=== PATIENT | female | born 1940 | race Caucasian/White ===

== ENCOUNTER → 2016-10-25 | Outpatient (CLI) | payer BC ==
[~2016-10-25] MED LIST: ASPCH81X PO; CETI10TA10 PO; CIPR-255 PO; FLUO20CA37 PO; FRRS300 PO; IMD/2 PO; KCLP20 PO; LPT/40 PO; METO25TA56 PO; MULT-506 PO; NITR0.4S UT; ONDA4TAB65 PO; OXYC-57 PO; PANT40TA PO; RSPS5 PO; TEMA15CA4 PO; VNCS125 PO
--- NOTE | 2016-10-25 09:01 | DIAGNOSTIC IMAGING REPORT ---
GI SERIES W/AIR ROUTINE CLINICAL HISTORY: HIATAL HERNIA. Preop. COMPARISON STUDY: Abdomen and pelvis CT 01/24/2014. FLUOROSCOPY TIME: 1.9 minutes. 19 images submitted.. FINDINGS: The patient swallowed barium without difficulty. The esophagus is normal in course and caliber. Moderate to large hiatus hernia. No gastric ulcerations. There is a small diverticulum at the second portion of the duodenum. No gastroesophageal reflux. The duodenal bulb is normally distensible. 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 IMPRESSION: 1. Moderate to large hiatus hernia. 2. A small duodenal diverticulum. 3. Multiple jejunal diverticula. Electronically signed by: Blanco Pak M.D. 10/25/2016 8:59 AM Dictated Date/Time: 10/25/2016 8:57 AM
== END | disposition home or self-care (01) ==
LOC: C.RAD 08:10
PROVIDERS: ATTEND Surgery
DX: K44.9 Diaphragmatic hernia without obstruction or gangrene (principal); K57.10 Diverticulosis of small intestine without perforation or abscess without bleeding

== ENCOUNTER 2017-01-23 09:06 | Inpatient (IN) | payer BC, OTHER ==
[~2017-01-23] VITALS: Ht 154.9 cm; Wt 73.3 kg
[~2017-01-23 09:06] MED LIST changes: -CIPR-255 PO; -IMD/2 PO; -KCLP20 PO; -ONDA4TAB65 PO; -OXYC-57 PO; -RSPS5 PO; -VNCS125 PO
[2017-01-23] MEDS ORDERED: SODIUM CHLORIDE 0.9% 1000ML 1,000 ML IV STA (09:20)
[2017-01-23 09:46] LABS: BASO % 0.2 %; BASO ABS # 0.02 K/uL (0-0.2); COMPLETE YES; EOS % 1.1 %; HEMATOCRIT 39.1 % (37-47); IG% 0.3 %; LYMPH ABS # 1.23 K/uL (1.2-3.4); MEAN CELL VOLUME 89.5 fL (80-100); MEAN CORPUSCULAR HEMOGLOBIN 29.7 pg (25-34); MEAN CORPUSCULAR HGB CONC 33.2 g/dl (32-36); MEAN PLATELET VOLUME 8.7 fL (7.4-10.4); MONO % 10.4 %; PLATELET COUNT 703 K/uL (130-400); RED BLOOD COUNT 4.37 M/uL (4.2-5.4); WHITE BLOOD COUNT 10.29 K/uL (4.8-10.8)
[2017-01-23] MEDS ORDERED: ONDANSETRON INJ 2 MG/ML 2 ML VIAL IV STA (09:49)
[2017-01-23] MEDS: HYDROmorphone INJ 0.5 MG/0.5 ML SYR IV PRN ×2 (10:02→13:25)
[2017-01-23 10:04] LABS: BUN/CREATININE RATIO 18.7 (10-20); CALCIUM 8.6 mg/dl (8.5-10.1); CREATININE 0.67 mg/dl (0.60-1.20); POTASSIUM 3.4 mmol/L (3.5-5.1)
--- NOTE | 2017-01-23 10:11 | DIAGNOSTIC IMAGING REPORT ---
CHEST ONE VIEW PORTABLE CLINICAL HISTORY: Upper abdominal pain COMPARISON STUDY: 06/18/2016 FINDINGS: The heart is the upper limits of normal in size. There has been possible interval repair of a hiatal hernia. There are bibasilar opacities, possibly atelectatic. There is no free intraperitoneal air. There is a 3 cm opacity projected through the gastric air bubble. This is nonspecific. There is blunting of the lateral costophrenic angles IMPRESSION: 1. No evidence of free intraperitoneal air 2. Bibasilar opacities, possibly atelectatic although an infectious/inflammatory process could appear similar particularly at the left lung base 3. Nonspecific 3 cm opacity visualized through the gastric air bubble Electronically signed by: Tyler Adames M.D. 01/23/2017 10:10 AM Dictated Date/Time: 01/23/2017 10:05 AM
--- NOTE | 2017-01-23 10:53 | DIAGNOSTIC IMAGING REPORT ---
ABD/PELVIS NO IV OR ORAL CONT CLINICAL HISTORY: 76 years-old Female presenting with upper abd pain, recent hiatal hernia surgery. TECHNIQUE: Multidetector CT of the abdomen and pelvis was performed without the use of intravenous contrast. IV contrast: None. COMPARISON: CT from 2014. CT DOSE: The estimated cumulative dose is 529.46 mGy.cm. 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 Trace left pleural effusion. Mild multichamber enlargement of the heart. Coronary artery calcification. No pericardial effusion. Liver: Normal morphology. Normal liver density. Biliary: Mild extrahepatic biliary ductal prominence likely within the normal range for the patient's age. Diffuse mild gallbladder wall thickening measuring up to 4 mm. Trace pericholecystic fluid. No pericholecystic inflammatory change. Pancreas: Mild parenchymal atrophy. Spleen: Normal noncontrast appearance. Adrenal glands: Normal. Kidneys and ureters: Multiple parapelvic hypodensities likely parapelvic cysts. No hydronephrosis. No hydroureter. No nephrolithiasis. Gastrointestinal tract: Diverticulosis of the descending and sigmoid colon with suggestion of wall thickening likely indicating chronic diverticular disease. No pericolonic inflammatory change. Patent ileocolic anastomosis in the right lower quadrant. No bowel obstruction. Small hiatal hernia may be present. Apparent wall thickening of the pylorus, which is immediately adjacent to the gallbladder. This may be secondarily reactive. Peritoneal cavity: No free fluid or intraperitoneal gas. Bladder: Incompletely evaluated secondary to underdistention. Pelvic organs: Uterus and ovaries normal. Vasculature: Atherosclerosis of the normal caliber abdominal aorta. Lymph nodes: No enlarged lymph nodes in the abdomen or pelvis. Abdominal wall: Minimal infiltration of several sites in the anterior abdominal wall may relate to prior surgery. Small fat-containing umbilical hernia. Musculoskeletal: Degenerative changes of the spine. IMPRESSION: 1. Mild gallbladder wall thickening with trace pericholecystic fluid. Although pericholecystic inflammatory changes not present, this raises concern for cholecystitis. Further evaluation with ultrasound or hepatobiliary nuclear medicine scan as clinically warranted. 2. Bibasilar consolidation and volume loss, likely extensive atelectasis. 3. Diverticulosis. Electronically signed by: Rei Moreland M.D. 01/23/2017 10:52 AM Dictated Date/Time: 01/23/2017 10:40 AM
[2017-01-23] MEDS ORDERED: LEVAQUIN 750MG / 150ML D5W IV STA (11:18)
[2017-01-23 11:55] LABS: URINE APPEARANCE CLEAR (CLEAR); URINE COLOR DK YELLOW; URINE EPITHELIAL CELL AUTO >30 /lpf (0-5); URINE NITRITE NEG (NEG); URINE PH 5.5 (4.5-7.5); URINE SPECIFIC GRAVITY 1.038 (1.000-1.030); UROBILINOGEN NEG (NEG); ZZUR CULT IF INDIC CLEAN CATCH NO
[2017-01-23 11:58] LABS: MANUAL MICROSCOPIC REQUIRED? NO; REVIEW REQ? NO; URINE BILIRUBIN NEG (NEG)
--- NOTE | 2017-01-23 15:13 | DIAGNOSTIC IMAGING REPORT ---
Right upper quadrant ultrasound GALLBLADDER-ABD LIMITED CLINICAL HISTORY: abn GB on CT abnormal CT exam. Pain. TECHNIQUE: Ultrasound COMPARISON STUDY: CT study same date FINDINGS: Gallbladder slightly distended. Trace gallbladder sludge. No shadowing gallstones. No significant pericholecystic fluid. Minimal prominence extra hepatic common bile duct 7 mm. Fatty infiltration of the liver. Pancreas and right kidney are unremarkable. IMPRESSION: 1. Slight gallbladder distention with a trace amount of gallbladder sludge. 2. Minimal prominence of the common bile duct at 7 mm. 3. No significant pericholecystic fluid. 4. Fatty infiltration of liver Electronically signed by: Oscar Sharma M.D. 01/23/2017 3:11 PM Dictated Date/Time: 01/23/2017 3:09 PM
--- NOTE | 2017-01-23 16:09 | EMERGENCY ROOM VISIT NOTE ---
History Report prepared by Karina: Valdez Westbrook Under the Supervision of: Dr. Mahesh Wakefield M.D. First contact with patient: 09:19 Chief Complaint: ABDOMINAL PAIN Stated Complaint: ABD PAIN Nursing Triage Summary: pt presents via ALS Per ALS pt had hernia surgery 01/08 per patient this am she was sitting on the sofa and sat up to take her daily medications She reports an awful pain went through her bones and it just got worse and worse throughout the night her pain was horrible, she couldnt bend down, she couldnt catch her breath History of Present Illness The patient is a 76 year old female who presents to the Emergency Room with complaints of constant chest pain starting yesterday. She rates her pain as a 5/ 10 in severity currently and reports that it was 10/10 in severity. The patient states that she started to feel stiff last yesterday and went to sit up when she felt a piercing pain in her back, sides, and chest and states the pain is "wherever there are bones". She reports that the pain is only worsened with movement and relieved with rest. She also reports an intermittent cough that started last night. The patient states that she recently had a surgery 2 weeks ago for her hiatal hernia with Dr. Hanson at [facility]. She states that she was supposed have an appointment with Dr. Jurado later today. The patient states that she has abnormally low blood pressure and has normal bowel movements. The patient admits that she is allergic to hydrocodone, penicillin, sulfa drugs, macrolides, and lisinopril. The patient denies LOC, headache, fevers, chills, diaphoresis, visual changes, neck pain, breathing difficulties, nausea, vomiting , abdominal pain, melena, hematochezia, urinary symptoms, numbness, weakness, lymphadenopathy, rash, or other complaints. Source of History: patient Onset: yesterday Position: other (global) Symptom Intensity: 5/10 Timing: constant Modifying Factors (Worsening): movement Modifying Factors (Relieving): rest Associated Symptoms: + cough, + chest pain, + back pain Review of Systems See HPI for pertinent positives and negatives. A total of ten systems were reviewed and were otherwise negative. Past Medical & Surgical Medical Problems: (1) CAD (coronary artery disease) (2) Colon adenocarcinoma (3) Depression (4) LIGIA (iron deficiency anemia) (5) Pilonidal cyst Surgical Problems: (1) H/O colonoscopy (2) H/O dilation and curettage (3) History of oophorectomy, unilateral (4) Hx of tubal ligation (5) S/P anal fissurectomy Family History Beta thalassemia [employer] Social History Smoking Status: Former Smoker Drug Use: none Marital Status: Housing Status: lives with family Occupation Status: retired Current/Historical Medications Scheduled Aspirin (Aspirin Chewable), 81 MG PO QAM Atorvastatin (Lipitor), 40 MG PO HS Cetirizine Hcl (Zyrtec), 10 MG PO HS Ferrous Sulfate (Ferrous Sulfate), 1 TAB PO BID Fluoxetine Hcl (Prozac), 20 MG PO HS Metoprolol Tartrate (Lopressor) (Lopressor), 25 MG PO BID Multivitamin (Multivitamin), 1 TAB PO HS Nitroglycerin (Nitrostat), 0.4 MG UT PRN Pantoprazole (Protonix), 40 MG PO BID Scheduled PRN Temazepam (Restoril), 7.5 MG PO HS PRN for Sleep Allergies Coded Allergies: Hydrocodone (Verified Allergy, Unknown, UNKNOWN, 01/23/17) Macrolides (Verified Allergy, Unknown, ALLERGIC TO "MYCINS", 01/23/17) Penicillins (Verified Allergy, Unknown, HIVES, 01/23/17) HIVES IN THROAT Sulfa Drugs (Verified Allergy, Unknown, HIVES, 01/23/17) HIVES IN THROAT Lisinopril (Verified Adverse Reaction, Unknown, cough, 01/23/17) Physical Exam Vital Signs Date Time Temp Pulse Resp B/P (MAP) Pulse Ox O2 Delivery O2 Flow Rate FiO2 01/23/17 14:29 74 01/23/17 14:23 75 16 118/78 97 Nasal Cannula 2.0 01/23/17 12:56 79 16 112/75 97 Nasal Cannula 2.0 01/23/17 11:42 75 20 119/79 97 Room Air 01/23/17 10:32 77 16 140/93 94 Nasal Cannula 2.0 01/23/17 09:36 76 01/23/17 09:21 96 Nasal Cannula 01/23/17 09:12 36.4 76 18 142/81 92 Room Air Physical Exam GENERAL: Awake, alert, well-appearing, in no distress. Uncomfortable appearing HENT: Normocephalic, atraumatic. Oropharynx unremarkable. EYES: Normal conjunctiva. Sclera non-icteric. NECK: Supple. No nuchal rigidity. FROM. No JVD. RESPIRATORY: Clear to auscultation. CARDIAC: Regular rate, normal rhythm. Extremities warm and well perfused. Pulses equal. ABDOMEN: Surgical incision sites are clean, dry, and intact. Soft, non- distended. Mild lower abdominal tenderness to palpation. No rebound or guarding. No masses. RECTAL: Deferred. MUSCULOSKELETAL: Anterior rib tenderness. The back is symmetrical on inspection without obvious abnormality. There is CVA tenderness to palpation. No joint edema. LOWER EXTREMITIES: Calves are equal size bilaterally and non-tender. No edema. No discoloration. NEURO: Normal sensorium. No sensory or motor deficits noted. SKIN: No rash or jaundice noted. Medical Decision & Procedures ER Provider Diagnostic Interpretation: Radiology results as stated below per my review and radiologist interpretation: CHEST ONE VIEW PORTABLE CLINICAL HISTORY: Upper abdominal pain COMPARISON STUDY: 06/18/2016 FINDINGS: The heart is the upper limits of normal in size. There has been possible interval repair of a hiatal hernia. There are bibasilar opacities, possibly atelectatic. There is no free intraperitoneal air. There is a 3 cm opacity projected through the gastric air bubble. This is nonspecific. There is blunting of the lateral costophrenic angles IMPRESSION: 1. No evidence of free intraperitoneal air 2. Bibasilar opacities, possibly atelectatic although an infectious/inflammatory process could appear similar particularly at the left lung base 3. Nonspecific 3 cm opacity visualized through the gastric air bubble Electronically signed by: Tyler Adames M.D. 01/23/2017 10:10 AM Dictated Date/Time: 01/23/2017 10:05 AM ABD/PELVIS NO IV OR ORAL CONT CLINICAL HISTORY: 76 years-old Female presenting with upper abd pain, recent hiatal hernia surgery. TECHNIQUE: Multidetector CT of the abdomen and pelvis was performed without the use of intravenous contrast. IV contrast: None. COMPARISON: CT from 2013. CT DOSE: The estimated cumulative dose is 529.46 mGy.cm. 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 Trace left pleural effusion. Mild multichamber enlargement of the heart. Coronary artery calcification. No pericardial effusion. Liver: Normal morphology. Normal liver density. Biliary: Mild extrahepatic biliary ductal prominence likely within the normal range for the patient's age. Diffuse mild gallbladder wall thickening measuring up to 4 mm. Trace pericholecystic fluid. No pericholecystic inflammatory change. Pancreas: Mild parenchymal atrophy. Spleen: Normal noncontrast appearance. Adrenal glands: Normal. Kidneys and ureters: Multiple parapelvic hypodensities likely parapelvic cysts. No hydronephrosis. No hydroureter. No nephrolithiasis. Gastrointestinal tract: Diverticulosis of the descending and sigmoid colon with suggestion of wall thickening likely indicating chronic diverticular disease. No pericolonic inflammatory change. Patent ileocolic anastomosis in the right lower quadrant. No bowel obstruction. Small hiatal hernia may be present. Apparent wall thickening of the pylorus, which is immediately adjacent to the gallbladder. This may be secondarily reactive. Peritoneal cavity: No free fluid or intraperitoneal gas. Bladder: Incompletely evaluated secondary to underdistention. Pelvic organs: Uterus and ovaries normal. Vasculature: Atherosclerosis of the normal caliber abdominal aorta. Lymph nodes: No enlarged lymph nodes in the abdomen or pelvis. Abdominal wall: Minimal infiltration of several sites in the anterior abdominal wall may relate to prior surgery. Small fat-containing umbilical hernia. Musculoskeletal: Degenerative changes of the spine. IMPRESSION: 1. Mild gallbladder wall thickening with trace pericholecystic fluid. Although pericholecystic inflammatory changes not present, this raises concern for cholecystitis. Further evaluation with ultrasound or hepatobiliary nuclear medicine scan as clinically warranted. 2. Bibasilar consolidation and volume loss, likely extensive atelectasis. 3. Diverticulosis. Electronically signed by: Rei Moreland M.D. 01/23/2017 10:52 AM Dictated Date/Time: 01/23/2017 10:40 AM Laboratory Results 01/23/17 09:30 Red Blood Count 4.37, Mean Corpuscular Volume 89.5, Mean Corpuscular Hemoglobin 29.7, Mean Corpuscular Hemoglobin Concent 33.2, Mean Platelet Volume 8.7, Neutrophils (%) (Auto) 76.0, Lymphocytes (%) (Auto) 12.0, Monocytes (%) (Auto) 10.4, Eosinophils (%) (Auto) 1.1, Basophils (%) (Auto) 0.2, Neutrophils # (Auto ) 7.83, Lymphocytes # (Auto) 1.23, Monocytes # (Auto) 1.07, Eosinophils # (Auto ) 0.11, Basophils # (Auto) 0.02 01/23/17 09:30 Test 01/23/17 00:00 01/23/17 09:30 Urine Color DK YELLOW Urine Appearance CLEAR (CLEAR) Urine pH 5.5 (4.5-7.5) Urine Specific [place] 1.038 (1.000-1.030) Urine Protein 1+ (NEG) Urine Glucose (UA) NEG (NEG) Urine Ketones TRACE (NEG) Urine Occult Blood NEG (NEG) Urine Nitrite NEG (NEG) Urine Bilirubin NEG (NEG) Urine Urobilinogen NEG (NEG) Urine Leukocyte Esterase NEG (NEG) Urine WBC (Auto) 1-5 /hpf (0-5) Urine RBC (Auto) 0-4 /hpf (0-4) Urine Hyaline Casts (Auto) 5-10 /lpf (0-5) Urine Epithelial Cells (Auto) >30 /lpf (0-5) Urine Bacteria (Auto) NEG (NEG) White Blood Count 10.29 K/uL (4.8-10.8) Red Blood Count 4.37 M/uL (4.2-5.4) Hemoglobin 13.0 g/dL (12.0-16.0) Hematocrit 39.1 % (37-47) Mean Corpuscular Volume 89.5 fL (80-100) Mean Corpuscular Hemoglobin 29.7 pg (25-34) Mean Corpuscular Hemoglobin Concent 33.2 g/dl (32-36) Platelet Count 703 K/uL (130-400) Mean Platelet Volume 8.7 fL (7.4-10.4) Neutrophils (%) (Auto) 76.0 % Lymphocytes (%) (Auto) 12.0 % Monocytes (%) (Auto) 10.4 % Eosinophils (%) (Auto) 1.1 % Basophils (%) (Auto) 0.2 % Neutrophils # (Auto) 7.83 K/uL (1.4-6.5) Lymphocytes # (Auto) 1.23 K/uL (1.2-3.4) Monocytes # (Auto) 1.07 K/uL (0.11-0.59) Eosinophils # (Auto) 0.11 K/uL (0-0.5) Basophils # (Auto) 0.02 K/uL (0-0.2) RDW Standard Deviation 47.0 fL (36.4-46.3) RDW Coefficient of Variation 14.4 % (11.5-14.5) Immature Granulocyte % (Auto) 0.3 % Immature Granulocyte # (Auto) 0.03 K/uL (0.00-0.02) Anion Gap 7.0 mmol/L (3-11) Est Creatinine Clear Calc Drug Dose 63.7 ml/min Estimated GFR () 99.7 Estimated GFR (Non- 86.0 BUN/Creatinine Ratio 18.7 (10-20) Calcium Level 8.6 mg/dl (8.5-10.1) Total Bilirubin 0.5 mg/dl (0.2-1) Direct Bilirubin 0.1 mg/dl (0-0.2) Aspartate Amino Transf (AST/SGOT) 25 U/L (15-37) Alanine Aminotransferase (ALT/SGPT) 32 U/L (12-78) Alkaline Phosphatase 90 U/L (45-117) Troponin I 0.021 ng/ml (0-0.045) Total Protein 7.7 gm/dl (6.4-8.2) Albumin 2.5 gm/dl (3.4-5.0) Lipase 191 U/L (73-393) Laboratory results reviewed by me Medications Administered Medications (Trade) Dose Ordered Sig/Tra Route Start Time Stop Time Status Last Admin Dose Admin Sodium Chloride 1,000 ml @ 125 mls/hr Q8H STAT IV 01/23/17 09:20 01/23/17 17:19 01/23/17 09:20 125 MLS/HR Hydromorphone HCl (Dilaudid Inj) 0.5 mg Q15M PRN IV 01/23/17 10:00 02/06/17 09:59 01/23/17 13:25 0.5 MG Ondansetron HCl (Zofran Inj) 4 mg NOW STAT IV 01/23/17 09:49 01/23/17 09:51 DC 01/23/17 09:49 4 MG Levofloxacin (Levaquin / D5W) 750 mg NOW STAT IV 7/13/17 11:18 01/23/17 11:19 DC 01/23/17 11:38 750 MG ECG Indication: chest pain Rate (beats per minute): 76 Rhythm: normal sinus Findings: Q waves (Inferior), no acute ischemic change ED Course 0920: Sodium Chloride 1000 ml @ 125 mls/hr IV. 0948: The patient was evaluated in room A02. A complete history and physical exam was performed. 0949: Zofran Injection 4 mg IV. 1000: Dilaudid Injection 0.5 mg IV. 1118: Levofloxacin 750 mg IV. 1119: I reevaluated the patient and she is feeling better. She would like more pain medication. 1525: Ultrasound was done. The patient was reassessed. Consultation made with internal medicine. 1555: Discussed the case with internal medicine. The patient will be evaluated for further management. Medical Decision Medication Reconciliation: I attest that I have personally reviewed the patient' s current medication list Blood pressure screening: Patient was found to have normal blood pressure on screening and does not require follow-up. Triage Nursing notes reviewed. The patient's presentation and history were concerning for abdominal pain. The patient also is concerns about a pneumonia. Etiologies such as obstruction, inflammatory bowel disease, renal colic, PUD, biliary pathology, combination of recent surgery, pneumonia, appendicitis, diverticulitis, pancreatitis, mesenteric ischemia, aortic pathology, infections , genitourinary, UTI, perforated viscus, as well as others were entertained. Patient was evaluated. She was treated with normal saline, Dilaudid, and Zofran. She did feel better with this. She did require second dose of Dilaudid. Her CBC, chemistry panel, LFTs and lipase were unremarkable. Urinalysis was somewhat concentrated. CT imaging was concerning for cholecystitis. There was also some question about pneumonia on imaging as well. The patient was given a dose of IV Levaquin. She underwent ultrasound imaging of the gallbladder. This was somewhat concerning as her gallbladder wall was mildly thickened and the gallbladder was distended. Because of this a consultation was made with internal medicine. I discussed the case. The patient was evaluated in the Emergency Room for further management. Impression Primary Impression: Right upper quadrant abdominal pain Additional Impressions: Pneumonia Cholecystitis Scribe Attestation The scribe's documentation has been prepared under my direction and personally reviewed by me in its entirety. I confirm that the note above accurately reflects all work, treatment, procedures, and medical decision making performed by me. Departure Information Dispostion Being Evaluated By Hospitalist Referrals Bruce Sheridan D.O. (PCP) Patient Instructions My [facility] Problem Qualifiers
[2017-01-23] MEDS ORDERED: ALUMINUM/MAGNESIUM/SIMETH (MAALOX MAX) 30 ML UDC PO PRN (16:30)
[2017-01-23] MEDS ORDERED: POLYETHYLENE (MIRALAX) 17 GM PACK PO PRN (16:30)
[2017-01-23] MEDS ORDERED: MAGNESIUM HYDROXIDE SUSP 30 ML UDC PO PRN (16:30)
[2017-01-23] MEDS ORDERED: ACETAMINOPHEN 325 MG TAB PO PRN (16:30)
[2017-01-23] MEDS ORDERED: TEMAZEPAM 7.5 MG CAP PO PRN (16:30)
[2017-01-23] MEDS ORDERED: MoRPHine SULFATE 2 MG/ML CARP IV STA ×2 (16:38→21:23)
[2017-01-23] MEDS ORDERED: MoRPHine SULFATE 2 MG/ML CARP IV PRN (16:45)
[2017-01-23] MEDS ORDERED: ONDANSETRON INJ 2 MG/ML 2 ML VIAL ONE (16:46)
[2017-01-23] MEDS ORDERED: POTASSIUM CHLORIDE 10 MEQ / 100ML WTR IV ONE (17:19)
--- NOTE | 2017-01-23 18:14 | Medical Consult ---
Consultation Date of Consultation: Jan 23, 2017. Attending Physician: Irasema Mcdonald M.D. Reason for Consultation: abd pain, cholecystitis History of Present Illness Patient was admitted to the emergency room with upper abdominal pain and what appears to be chest and back pain. She is 2 weeks out from a laparoscopic hiatal hernia repair [place]. Her workup included ultrasound and CAT scan which showed a mildly thickened gallbladder with mild distention and some evidence of acute cholecystitis. Her white blood cell count and liver function studies are normal. She is currently admitted to the telemetry unit and we are ruling out any cardiac issues. Past Medical/Surgical History Medical Problems: (1) Cholecystitis Status: Acute (2) Pneumonia Status: Acute (3) Right upper quadrant abdominal pain Status: Acute Family History Beta thalassemia [employer] Social History Smoking Status: Former Smoker Drug Use: none Marital Status: Housing Status: lives with family Occupation Status: retired Allergies Coded Allergies: Hydrocodone (Verified Allergy, Unknown, UNKNOWN, 01/23/17) Macrolides (Verified Allergy, Unknown, ALLERGIC TO "MYCINS", 01/23/17) Penicillins (Verified Allergy, Unknown, HIVES, 01/23/17) HIVES IN THROAT Sulfa Drugs (Verified Allergy, Unknown, HIVES, 01/23/17) HIVES IN THROAT Lisinopril (Verified Adverse Reaction, Unknown, cough, 01/23/17) Current Inpatient Medications Current Inpatient Medications Medications (Trade) Dose Ordered Sig/Tra Route Start Time Stop Time Status Last Admin Dose Admin Hydromorphone HCl (Dilaudid Inj) 0.5 mg Q15M PRN IV 01/23/17 10:00 02/06/17 09:59 01/23/17 13:25 0.5 MG Potassium Chloride 10 meq/ Prmx 100 ml @ 100 mls/hr 1830 ONCE IV 01/23/17 18:30 01/23/17 19:29 Heparin Sodium (Porcine) (Heparin Sq 5000 Unit/0.5ml) 5,000 unit Q8 SQ 01/23/17 22:00 02/22/17 21:59 Sodium Chloride 1,000 ml @ 80 mls/hr [id number] IV 01/23/17 18:30 02/22/17 18:29 Acetaminophen (Tylenol Tab) 650 mg Q4H PRN PO 01/23/17 16:30 02/22/17 16:29 Al Hydrox/Mg Hydrox/Simethicone (Maalox Max Susp) 15 ml Q4H PRN PO 01/23/17 16:30 02/22/17 16:29 Magnesium Hydroxide (Milk Of Magnesia Susp) 30 ml Q12H PRN PO 01/23/17 16:30 02/22/17 16:29 Ondansetron HCl (Zofran Inj) 4 mg Q6H PRN IV 01/23/17 16:30 02/22/17 16:29 Aspirin (Ecotrin Tab) 81 mg QAM PO 01/24/17 09:00 02/23/17 08:59 Polyethylene (Miralax Powder Packet) 17 gm DAILY PRN PO 01/23/17 16:30 02/22/17 16:29 Atorvastatin Calcium (Lipitor Tab) 40 mg HS PO 01/23/17 21:00 02/22/17 20:59 Ferrous Sulfate (Feosol Tab) 325 mg BID PO 01/23/17 21:00 02/22/17 20:59 Fluoxetine HCl (Prozac Cap) 20 mg HS PO 01/23/17 21:00 02/22/17 20:59 Metoprolol Tartrate (Lopressor Tab) 25 mg BID PO 01/23/17 21:00 02/22/17 20:59 Multivitamins (Multivitamin Tab) 1 tab HS PO 01/23/17 21:00 02/22/17 20:59 Pantoprazole Sodium (Protonix Tab) 40 mg BID PO 01/23/17 21:00 02/22/17 20:59 Temazepam (Restoril Cap) 7.5 mg HS PRN PO 01/23/17 16:30 02/22/17 16:29 Levofloxacin 750 mg/Prmx 150 ml @ 100 mls/hr Q24H IV 01/24/17 10:00 01/31/17 09:59 Morphine Sulfate (MoRPHine SULFATE INJ) 1 mg Q4 PRN IV 01/23/17 16:45 02/06/17 16:44 Metronidazole 500 mg/Prmx 100 ml @ 100 mls/hr Q8 IV 01/23/17 18:15 02/02/17 18:14 UNV Review of Systems Constitutional: No fever, No chills Respiratory: No cough, No sputum, No shortness of breath Cardiovascular: + chest pain Abdomen: + pain, + nausea, No vomiting Genitourinary - Female: No dysuria Neurologic: No memory loss Endocrine: No excessive urination Hematologic / Lymphatic: No abnormal bleeding/bruising Integumentary: No rash Physical Exam Date Time Temp Pulse Resp B/P (MAP) Pulse Ox O2 Delivery O2 Flow Rate FiO2 01/23/17 17:22 36.4 82 18 121/88 92 01/23/17 16:52 82 18 121/88 92 Room Air 01/23/17 14:29 74 01/23/17 14:23 75 16 118/78 97 Nasal Cannula 2.0 01/23/17 12:56 79 16 112/75 97 Nasal Cannula 2.0 01/23/17 11:42 75 20 119/79 97 Room Air 01/23/17 10:32 77 16 140/93 94 Nasal Cannula 2.0 01/23/17 09:36 76 01/23/17 09:21 96 Nasal Cannula 01/23/17 09:12 36.4 76 18 142/81 92 Room Air General Appearance: + mild distress (nonspecific pain) Head: atraumatic Eyes: sclerae normal Neck: supple Respiratory/Chest: no respiratory distress Cardiovascular: regular rate, rhythm Abdomen/GI: + pertinent finding (mild distention, mild upper abd tenderness) Extremities/Musculoskelatal: no pedal edema Skin: warm/dry Laboratory Results Last 24 Hours Test 01/23/17 00:00 01/23/17 09:30 Urine Color DK YELLOW Urine Appearance CLEAR Urine pH 5.5 Urine Specific [place] 1.038 Urine Protein 1+ Urine Glucose (UA) NEG Urine Ketones TRACE Urine Occult Blood NEG Urine Nitrite NEG Urine Bilirubin NEG Urine Urobilinogen NEG Urine Leukocyte Esterase NEG Urine WBC (Auto) 1-5 /hpf Urine RBC (Auto) 0-4 /hpf Urine Hyaline Casts (Auto) 5-10 /lpf Urine Epithelial Cells (Auto) >30 /lpf Urine Bacteria (Auto) NEG White Blood Count 10.29 K/uL Red Blood Count 4.37 M/uL Hemoglobin 13.0 g/dL Hematocrit 39.1 % Mean Corpuscular Volume 89.5 fL Mean Corpuscular Hemoglobin 29.7 pg Mean Corpuscular Hemoglobin Concent 33.2 g/dl Platelet Count 703 K/uL Mean Platelet Volume 8.7 fL Neutrophils (%) (Auto) 76.0 % Lymphocytes (%) (Auto) 12.0 % Monocytes (%) (Auto) 10.4 % Eosinophils (%) (Auto) 1.1 % Basophils (%) (Auto) 0.2 % Neutrophils # (Auto) 7.83 K/uL Lymphocytes # (Auto) 1.23 K/uL Monocytes # (Auto) 1.07 K/uL Eosinophils # (Auto) 0.11 K/uL Basophils # (Auto) 0.02 K/uL RDW Standard Deviation 47.0 fL RDW Coefficient of Variation 14.4 % Immature Granulocyte % (Auto) 0.3 % Immature Granulocyte # (Auto) 0.03 K/uL Sodium Level 139 mmol/L Potassium Level 3.4 mmol/L Chloride Level 106 mmol/L Carbon Dioxide Level 26 mmol/L Anion Gap 7.0 mmol/L Blood Urea Nitrogen 13 mg/dl Creatinine 0.67 mg/dl Est Creatinine Clear Calc Drug Dose 63.7 ml/min Estimated GFR () 99.7 Estimated GFR (Non- 86.0 BUN/Creatinine Ratio 18.7 Random Glucose 118 mg/dl Calcium Level 8.6 mg/dl Total Bilirubin 0.5 mg/dl Direct Bilirubin 0.1 mg/dl Aspartate Amino Transf (AST/SGOT) 25 U/L Alanine Aminotransferase (ALT/SGPT) 32 U/L Alkaline Phosphatase 90 U/L Troponin I 0.021 ng/ml Total Protein 7.7 gm/dl Albumin 2.5 gm/dl Lipase 191 U/L Assessment & Plan Admit with chest and abdominal pain. From my standpoint she likely does have mild acute cholecystitis which may be the etiology of her pain. She appears to have sludge in the gallbladder but no overt stones. We will obtain a HIDA scan to assess the cystic duct. Normally we may consider Proceeding with laparoscopic cholecystectomy with but with the patient's recent surgery it may be that we can treat her medically and avoid an urgent operation. We will continue her on IV antibiotics including Levaquin and Flagyl. We will reassess her liver function studies and obtain the HIDA scan. Even if the HIDA scan shows no filling of the gallbladder we may consider medical management for now.
[2017-01-23 18:16] VITALS: BP 139/85; PULSE 74; TEMP 36.4; O2SAT 96; Ht 154.9 cm; Wt 73.3 kg
[2017-01-23] MEDS ORDERED: POTASSIUM CHLR 10 MEQ / WTR 10 MEQ in PREMIXED WATER 100 ML IV ONE (18:30)
--- NOTE | 2017-01-23 18:53 | History and Physical ---
History & Physical Date & Time of Service: Jan 23, 2017 at 18:25 Chief Complaint: Cholecystitis, Pneumonia Primary Care Physician: Bruce Sheridan D.O. History of Present Illness Source: patient, family, clinic records, hospital records This is a 76 year old female with a PMH of CAD and hx. of IN s/p stents, CKD stage 3, HLD - recent surgical repair of paraesophageal hernia and laparoscopic fundoplication on January 09 - presents with back pain/chest pain, and pain in the epigastric region with deep inspiration. She states she was doing well after surgery until one day prior to arrival to the hospital. That's when her symptoms began - denies nausea/vomiting/fevers/chills. Also, c/o cough that began earlier today. Ambulating with assistance at home. States that she has been taking her medications as prescribed, including Protonix twice a day. She was scheduled to see the surgeon at [place] today, where she had her hernia repair done. 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 Status: Resolved (3) Depression Status: Chronic (4) LIGIA (iron deficiency anemia) Status: Chronic (5) Pilonidal cyst Status: Resolved Surgical Problems: (1) H/O colonoscopy Permanent Comment: 12/07/2015 hyperplastic polyp, diverticulosis, repeat 3 yrs/ COLONOSCOPY FLEXIBLE PROXIMAL DIAGNOSTIC performed by Talon Esparza MD at END[facility] Status: Chronic (2) H/O dilation and curettage Status: Resolved (3) History of oophorectomy, unilateral Status: Chronic (4) Hx of tubal ligation Status: Resolved (5) S/P anal fissurectomy Status: Resolved Family History Beta thalassemia [employer] Social History Smoking Status: Former Smoker Drug Use: none Marital Status: Housing status: lives with family Occupational Status: retired Immunizations History of Influenza Vaccine: Yes Influenza Vaccine Date: Mar 22, 2013 History of Tetanus Vaccine?: Yes Tetanus Immunization Date: Sep 28, 2003 History of Pneumococcal: Yes Pneumococcal Date: Mar 25, 2007 History of Hepatitis B Vaccine: Unknown Multi-Drug Resistant Organisms History of MDRO: No Allergies Coded Allergies: Hydrocodone (Verified Allergy, Unknown, UNKNOWN, 01/23/17) Macrolides (Verified Allergy, Unknown, ALLERGIC TO "MYCINS", 01/23/17) Penicillins (Verified Allergy, Unknown, HIVES, 01/23/17) HIVES IN THROAT Sulfa Drugs (Verified Allergy, Unknown, HIVES, 01/23/17) HIVES IN THROAT Lisinopril (Verified Adverse Reaction, Unknown, cough, 01/23/17) Home Medications Scheduled Aspirin (Aspirin Chewable), 81 MG PO QAM Atorvastatin (Lipitor), 40 MG PO HS Cetirizine Hcl (Zyrtec), 10 MG PO HS Ferrous Sulfate (Ferrous Sulfate), 1 TAB PO BID Fluoxetine Hcl (Prozac), 20 MG PO HS Metoprolol Tartrate (Lopressor) (Lopressor), 25 MG PO BID Multivitamin (Multivitamin), 1 TAB PO HS Nitroglycerin (Nitrostat), 0.4 MG UT PRN Pantoprazole (Protonix), 40 MG PO BID Scheduled PRN Temazepam (Restoril), 7.5 MG PO HS PRN for Sleep Review of Systems Constitutional: No fever, No chills, No weakness, No fatigue Respiratory: + cough, No sputum, No wheezing, No shortness of breath, No dyspnea on exertion, No dyspnea at rest, No hemoptysis Cardiovascular: + chest pain, + palpitations, No edema Abdomen: + pain (epigastric pain, worse with deep inspiration), No nausea, No vomiting, No diarrhea Musculoskeletal: + joint pain (back pain) Genitourinary - Female: No dysuria, No urinary frequency, No urinary urgency, No urinary incontinence, No urinary retention, No hematuria Neurologic: No weakness, No numbness/tingling Psychiatric: No depression symptoms Endocrine: No fatigue Hematologic / Lymphatic: No abnormal bleeding/bruising Integumentary: No rash Allergic / Immunologic: + seasonal allergies, No environmental allergies Physical Exam Vital Signs Date Time Temp Pulse Resp B/P (MAP) Pulse Ox O2 Delivery O2 Flow Rate FiO2 01/23/17 17:22 36.4 82 18 121/88 92 01/23/17 16:52 82 18 121/88 92 Room Air 01/23/17 14:29 74 01/23/17 14:23 75 16 118/78 97 Nasal Cannula 2.0 01/23/17 12:56 79 16 112/75 97 Nasal Cannula 2.0 01/23/17 11:42 75 20 119/79 97 Room Air 01/23/17 10:32 77 16 140/93 94 Nasal Cannula 2.0 01/23/17 09:36 76 01/23/17 09:21 96 Nasal Cannula 01/23/17 09:12 36.4 76 18 142/81 92 Room Air General Appearance: + mild distress (pain with movement/inspiration) Head: normocephalic, atraumatic Eyes: normal inspection ENT: hearing grossly normal Respiratory/Chest: chest non-tender, lungs clear, normal breath sounds, no respiratory distress, no accessory muscle use Cardiovascular: regular rate, rhythm, no edema, no murmur Abdomen/GI: normal bowel sounds, soft, + tenderness (epigastric) Back: no CVA tenderness, no muscle spasm Extremities/Musculoskelatal: no calf tenderness, normal capillary refill, no pedal edema Neurologic/Psych: no motor/sensory deficits, alert, normal mood/affect Skin: normal color Lymphatic: no adenopathy Diagnostics Laboratory Results Results Past 24 Hours Test 01/23/17 00:00 01/23/17 09:30 Range/Units Urine Color DK YELLOW Urine Appearance CLEAR CLEAR Urine pH 5.5 4.5-7.5 Urine Specific [place] 1.038 1.000-1.030 Urine Protein 1+ NEG Urine Glucose (UA) NEG NEG Urine Ketones TRACE NEG Urine Occult Blood NEG NEG Urine Nitrite NEG NEG Urine Bilirubin NEG NEG Urine Urobilinogen NEG NEG Urine Leukocyte Esterase NEG NEG Urine WBC (Auto) 1-5 0-5 /hpf Urine RBC (Auto) 0-4 0-4 /hpf Urine Hyaline Casts (Auto) 5-10 0-5 /lpf Urine Epithelial Cells (Auto) >30 0-5 /lpf Urine Bacteria (Auto) NEG NEG White Blood Count 10.29 4.8-10.8 K/uL Red Blood Count 4.37 4.2-5.4 M/uL Hemoglobin 13.0 12.0-16.0 g/dL Hematocrit 39.1 37-47 % Mean Corpuscular Volume 89.5 80-100 fL Mean Corpuscular Hemoglobin 29.7 25-34 pg Mean Corpuscular Hemoglobin Concent 33.2 32-36 g/dl Platelet Count 703 130-400 K/uL Mean Platelet Volume 8.7 7.4-10.4 fL Neutrophils (%) (Auto) 76.0 % Lymphocytes (%) (Auto) 12.0 % Monocytes (%) (Auto) 10.4 % Eosinophils (%) (Auto) 1.1 % Basophils (%) (Auto) 0.2 % Neutrophils # (Auto) 7.83 1.4-6.5 K/uL Lymphocytes # (Auto) 1.23 1.2-3.4 K/uL Monocytes # (Auto) 1.07 0.11-0.59 K/uL Eosinophils # (Auto) 0.11 0-0.5 K/uL Basophils # (Auto) 0.02 0-0.2 K/uL RDW Standard Deviation 47.0 36.4-46.3 fL RDW Coefficient of Variation 14.4 11.5-14.5 % Immature Granulocyte % (Auto) 0.3 % Immature Granulocyte # (Auto) 0.03 0.00-0.02 K/uL Sodium Level 139 136-145 mmol/L Potassium Level 3.4 3.5-5.1 mmol/L Chloride Level 106 98-107 mmol/L Carbon Dioxide Level 26 21-32 mmol/L Anion Gap 7.0 3-11 mmol/L Blood Urea Nitrogen 13 7-18 mg/dl Creatinine 0.67 0.60-1.20 mg/dl Est Creatinine Clear Calc Drug Dose 63.7 ml/min Estimated GFR () 99.7 Estimated GFR (Non- 86.0 BUN/Creatinine Ratio 18.7 10-20 Random Glucose 118 70-99 mg/dl Calcium Level 8.6 8.5-10.1 mg/dl Total Bilirubin 0.5 0.2-1 mg/dl Direct Bilirubin 0.1 0-0.2 mg/dl Aspartate Amino Transf (AST/SGOT) 25 15-37 U/L Alanine Aminotransferase (ALT/SGPT) 32 12-78 U/L Alkaline Phosphatase 90 45-117 U/L Troponin I 0.021 0-0.045 ng/ml Total Protein 7.7 6.4-8.2 gm/dl Albumin 2.5 3.4-5.0 gm/dl Lipase 191 73-393 U/L Microbiology Results 01/23/17 Blood Culture, Received Pending 01/23/17 Blood Culture, Received Pending Diagnostic Radiology CHEST ONE VIEW PORTABLE CLINICAL HISTORY: Upper abdominal pain COMPARISON STUDY: 06/18/2016 FINDINGS: The heart is the upper limits of normal in size. There has been possible interval repair of a hiatal hernia. There are bibasilar opacities, possibly atelectatic. There is no free intraperitoneal air. There is a 3 cm opacity projected through the gastric air bubble. This is nonspecific. There is blunting of the lateral costophrenic angles IMPRESSION: 1. No evidence of free intraperitoneal air 2. Bibasilar opacities, possibly atelectatic although an infectious/inflammatory process could appear similar particularly at the left lung base 3. Nonspecific 3 cm opacity visualized through the gastric air bubble ABD/PELVIS NO IV OR ORAL CONT CLINICAL HISTORY: 76 years-old Female presenting with upper abd pain, recent hiatal hernia surgery. TECHNIQUE: Multidetector CT of the abdomen and pelvis was performed without the use of intravenous contrast. IV contrast: None. COMPARISON: CT from 2014. CT DOSE: The estimated cumulative dose is 529.46 mGy.cm. FINDINGS: [employer] topogram: Surgical clips and multiple phleboliths noted Lung bases: Bibasilar consolidation and volume loss, likely extensive atelectasis. Trace left pleural effusion. Mild multichamber enlargement of the heart. Coronary artery calcification. No pericardial effusion. Liver: Normal morphology. Normal liver density. Biliary: Mild extrahepatic biliary ductal prominence likely within the normal range for the patient's age. Diffuse mild gallbladder wall thickening measuring up to 4 mm. Trace pericholecystic fluid. No pericholecystic inflammatory change. Pancreas: Mild parenchymal atrophy. Spleen: Normal noncontrast appearance. Adrenal glands: Normal. Kidneys and ureters: Multiple parapelvic hypodensities likely parapelvic cysts. No hydronephrosis. No hydroureter. No nephrolithiasis. Gastrointestinal tract: Diverticulosis of the descending and sigmoid colon with suggestion of wall thickening likely indicating chronic diverticular disease. No pericolonic inflammatory change. Patent ileocolic anastomosis in the right lower quadrant. No bowel obstruction. Small hiatal hernia may be present. Apparent wall thickening of the pylorus, which is immediately adjacent to the gallbladder. This may be secondarily reactive. Peritoneal cavity: No free fluid or intraperitoneal gas. Bladder: Incompletely evaluated secondary to underdistention. Pelvic organs: Uterus and ovaries normal. Vasculature: Atherosclerosis of the normal caliber abdominal aorta. Lymph nodes: No enlarged lymph nodes in the abdomen or pelvis. Abdominal wall: Minimal infiltration of several sites in the anterior abdominal wall may relate to prior surgery. Small fat-containing umbilical hernia. Musculoskeletal: Degenerative changes of the spine. IMPRESSION: 1. Mild gallbladder wall thickening with trace pericholecystic fluid. Although pericholecystic inflammatory changes not present, this raises concern for cholecystitis. Further evaluation with ultrasound or hepatobiliary nuclear medicine scan as clinically warranted. 2. Bibasilar consolidation and volume loss, likely extensive atelectasis. 3. Diverticulosis. Right upper quadrant ultrasound GALLBLADDER-ABD LIMITED CLINICAL HISTORY: abn GB on CT abnormal CT exam. Pain. TECHNIQUE: Ultrasound COMPARISON STUDY: CT study same date FINDINGS: Gallbladder slightly distended. Trace gallbladder sludge. No shadowing gallstones. No significant pericholecystic fluid. Minimal prominence extra hepatic common bile duct 7 mm. Fatty infiltration of the liver. Pancreas and right kidney are unremarkable. IMPRESSION: 1. Slight gallbladder distention with a trace amount of gallbladder sludge. 2. Minimal prominence of the common bile duct at 7 mm. 3. No significant pericholecystic fluid. 4. Fatty infiltration of liver EKG Normal sinus rhythm Inferior infarct , age undetermined Cannot rule out Anterior infarct , age undetermined Abnormal ECG Impression Assessment and Plan This is a 76 year old female with a PMH of CAD and hx. of [place] s/p stents, CKD stage 3, HLD - recent surgical repair of paraesophageal hernia and laparoscopic fundoplication on January 09 - presents with back pain/chest pain, and pain in the epigastric region with deep inspiration Acute Cholecystitis there is slight gallbladder distention some CBD dilatation noted as well pain with deep inspiration correlates with distended gallbladder consulted general surgery - appreciate input due to recent surgery, will hold off on cholecystectomy for now HIDA scan pending morphine, Percocet PRN for pain Flagyl added Chest Pain seems more like chest wall tenderness possibly due to lack of mobility after surgery will monitor in tele and check cardiac enzymes to rule out ACS initial enzymes negative EKG shows some T wave changes in the inferior leads, monitor in tele Possible Pneumonia CXR IMPRESSION: 1. No evidence of free intraperitoneal air 2. Bibasilar opacities, possibly atelectatic although an infectious/inflammatory process could appear similar particularly at the left lung base 3. Nonspecific 3 cm opacity visualized through the gastric air bubble due to recent surgery, this likely represents atelectasis more than pneumonia due to inspiratory pain; agree with continue Levaquin for five days total Recent Paraesophageal Hernia repair continue Protonix BID outpatient follow-[facility] with [facility] DVT ppx subq heparin FULL CODE VTE Prophylaxis VTE Risk Assessment Done? Y/N: Yes Risk Level: Moderate
[2017-01-23 19:42] VITALS: BP 136/80; PULSE 81; TEMP 36.5; O2SAT 97
[2017-01-23] MEDS: SODIUM CHLORIDE 0.9% 1000ML 1,000 ML IV SCH (20:05)
[2017-01-23] MEDS: METRONIDAZOLE / NSS 500 MG in PREMIXED NSS 100 ML IV SCH (20:07)
[2017-01-23] MEDS ORDERED: NURSING VERBAL MED ORDER ONE (21:30)
--- NOTE | 2017-01-23 22:57 | DIAGNOSTIC IMAGING REPORT ---
NUCLEAR HEPATOBILIARY SCAN CLINICAL HISTORY: Right upper quadrant abdominal pain. COMPARISON STUDY: Abdominal CT and ultrasound dated 01/23/2017.. TECHNIQUE: Dynamic images of the liver and anterior abdomen were obtained every 5 minutes for a total of 60 minutes following the IV administration of 5.2mCi of technetium 99m Choletec. The gallbladder was not visualized at 60 minutes. 2 mg of IV morphine was then administered, with further images acquired every 5 minutes for an additional 30 minutes. FINDINGS: The hepatobiliary scan shows prompt and homogeneous hepatic uptake. There is visualized activity within the intra and extrahepatic biliary tree at 20 minutes. There is normal biliary to bowel transit, with small bowel visualized by 30 minutes. The gallbladder was not visualized at 60 minutes. The gallbladder was also not visualized at 90 minutes following morphine administration. IMPRESSION: Scintigraphic findings are consistent with acute cholecystitis. Surgical consultation is advised. Electronically signed by: Maykel Wilson M.D. 01/23/2017 10:55 PM Dictated Date/Time: 01/23/2017 10:52 PM
[2017-01-23] MEDS: HEPARIN SOD 5000 UNIT/0.5 ML CARP SQ SCH (23:21)
[2017-01-23] MEDS: ATORVASTATIN 40 MG TAB PO SCH (23:22)
[2017-01-23] MEDS: FERROUS SULFATE 325 MG TAB PO SCH (23:22)
[2017-01-23] MEDS: PANTOprazole SOD 40 MG TAB PO SCH (23:23)
[2017-01-23] MEDS: MULTIVITAMIN TAB PO SCH (23:23)
[2017-01-23] MEDS: FLUOXETINE HCL 20 MG CAP PO SCH (23:23)
[2017-01-23] MEDS: METOPROLOL TARTRATE 25 MG TAB PO SCH (23:23)
[2017-01-24] VITALS (16 sets, daily range): BP systolic 108–131; BP diastolic 72–85; PULSE 64–93; TEMP 36.3–36.8; O2SAT 93–96
[2017-01-24] MEDS: METRONIDAZOLE / NSS 500 MG in PREMIXED NSS 100 ML IV SCH ×3 (02:38→16:02)
[2017-01-24] MEDS ORDERED: POTASSIUM CHLORIDE 20 MEQ TABCR PO STA (05:14)
--- NOTE | 2017-01-24 05:16 | Surgery Progress Note ---
Surgery Progress Note Date of Service Jan 24, 2017. Subjective still having upper abd pain req IV meds- Hida- c/w obstructed cystic duct Objective Vital Signs: Date Time Temp Pulse Resp B/P (MAP) Pulse Ox O2 Delivery O2 Flow Rate FiO2 01/24/17 04:01 36.8 81 18 130/85 (100) 96 Nasal Cannula 2.0 01/24/17 00:00 36.4 75 18 117/77 (90) 96 Nasal Cannula 2.0 01/23/17 20:00 Nasal Cannula 2.0 01/23/17 19:42 36.5 81 20 136/80 (98) 97 Room Air 2.0 01/23/17 18:16 36.4 74 18 139/85 96 Nasal Cannula 2.0 01/23/17 17:22 36.4 82 18 121/88 92 01/23/17 16:52 82 18 121/88 92 Room Air 01/23/17 14:29 74 01/23/17 14:23 75 16 118/78 97 Nasal Cannula 2.0 01/23/17 12:56 79 16 112/75 97 Nasal Cannula 2.0 01/23/17 11:42 75 20 119/79 97 Room Air 01/23/17 10:32 77 16 140/93 94 Nasal Cannula 2.0 01/23/17 09:36 76 01/23/17 09:21 96 Nasal Cannula 01/23/17 09:12 36.4 76 18 142/81 92 Room Air General Appearance: no apparent distress Respiratory/Chest: no respiratory distress Abdomen: soft, + tenderness Laboratory Results: Results Past 24 Hours Test 01/23/17 09:30 01/23/17 23:52 01/24/17 04:44 Range/Units White Blood Count 10.29 4.8-10.8 K/uL Red Blood Count 4.37 4.2-5.4 M/uL Hemoglobin 13.0 12.0-16.0 g/dL Hematocrit 39.1 37-47 % Mean Corpuscular Volume 89.5 80-100 fL Mean Corpuscular Hemoglobin 29.7 25-34 pg Mean Corpuscular Hemoglobin Concent 33.2 32-36 g/dl Platelet Count 703 130-400 K/uL Mean Platelet Volume 8.7 7.4-10.4 fL Neutrophils (%) (Auto) 76.0 % Lymphocytes (%) (Auto) 12.0 % Monocytes (%) (Auto) 10.4 % Eosinophils (%) (Auto) 1.1 % Basophils (%) (Auto) 0.2 % Neutrophils # (Auto) 7.83 1.4-6.5 K/uL Lymphocytes # (Auto) 1.23 1.2-3.4 K/uL Monocytes # (Auto) 1.07 0.11-0.59 K/uL Eosinophils # (Auto) 0.11 0-0.5 K/uL Basophils # (Auto) 0.02 0-0.2 K/uL RDW Standard Deviation 47.0 36.4-46.3 fL RDW Coefficient of Variation 14.4 11.5-14.5 % Immature Granulocyte % (Auto) 0.3 % Immature Granulocyte # (Auto) 0.03 0.00-0.02 K/uL Sodium Level 139 136-145 mmol/L Potassium Level 3.4 3.5-5.1 mmol/L Chloride Level 106 98-107 mmol/L Carbon Dioxide Level 26 21-32 mmol/L Anion Gap 7.0 3-11 mmol/L Blood Urea Nitrogen 13 7-18 mg/dl Creatinine 0.67 0.60-1.20 mg/dl Est Creatinine Clear Calc Drug Dose 63.7 ml/min Estimated GFR () 99.7 Estimated GFR (Non- 86.0 BUN/Creatinine Ratio 18.7 10-20 Random Glucose 118 70-99 mg/dl Calcium Level 8.6 8.5-10.1 mg/dl Total Bilirubin 0.5 0.2-1 mg/dl Direct Bilirubin 0.1 0-0.2 mg/dl Aspartate Amino Transf (AST/SGOT) 25 15-37 U/L Alanine Aminotransferase (ALT/SGPT) 32 12-78 U/L Alkaline Phosphatase 90 45-117 U/L Troponin I 0.021 0.018 0-0.045 ng/ml Total Protein 7.7 6.4-8.2 gm/dl Albumin 2.5 3.4-5.0 gm/dl Lipase 191 73-393 U/L Total Creatine Kinase 32 26-192 U/L Creatine Kinase MB < 0.5 0.5-3.6 ng/ml Creatine Kinase MB Ratio 0-3.0 Microbiology Results 01/23/17 Blood Culture, Received Pending 01/23/17 Blood Culture, Received Pending Assessment & Plan 01/24/17- likely worsening acute cholecystitis- I favor lap moses at this point as she could develop necrotizing cholecystitis will discuss with med team this am
[2017-01-24] MEDS: HEPARIN SOD 5000 UNIT/0.5 ML CARP SQ SCH ×3 (05:48→21:24)
[2017-01-24 06:50] LABS: HEMATOCRIT 37.1 % (37-47); MEAN CELL VOLUME 90.5 fL (80-100); MEAN CORPUSCULAR HEMOGLOBIN 29.3 pg (25-34); MEAN CORPUSCULAR HGB CONC 32.3 g/dl (32-36); MEAN PLATELET VOLUME 8.7 fL (7.4-10.4); PLATELET COUNT 652 K/uL (130-400)
[2017-01-24 07:16] LABS: ALT/SGPT 26 U/L (12-78); AST/SGOT 16 U/L (15-37); BLOOD UREA NITROGEN 12 mg/dl (7-18); BUN/CREATININE RATIO 19.5 (10-20); CALCIUM 8.5 mg/dl (8.5-10.1); CARBON DIOXIDE 27 mmol/L (21-32); CHLORIDE 106 mmol/L (98-107); CREATININE 0.61 mg/dl (0.60-1.20); GLUCOSE 92 mg/dl (70-99); POTASSIUM 3.8 mmol/L (3.5-5.1); SODIUM 140 mmol/L (136-145)
[2017-01-24 07:21] LABS: ALB/GLOB RATIO 0.5 (0.9-2); ALKALINE PHOSPHATASE 77 U/L (45-117)
[2017-01-24] MEDS ORDERED: BUPIVACAINE 0.5 % 5 MG/1 ML MPF 30ML VIAL ONE (08:34)
[2017-01-24] MEDS ORDERED: MoRPHine SULFATE 2 MG/ML CARP IV STA (08:34)
--- NOTE | 2017-01-24 08:38 | Progress Note ---
Subjective Date of Service: Jan 24, 2017. Subjective Pt evaluation today including: conversation w/ patient, physical exam, lab review, review of studies, review of inpatient medication list Problem List Medical Problems: (1) Cholecystitis Status: Acute (2) Pneumonia Status: Acute (3) Right upper quadrant abdominal pain Status: Acute Review of Systems Constitutional: No fever, No chills Respiratory: + problem reported (pain with deep inspiration), No cough, No sputum, No shortness of breath Cardiac: + chest pain, No edema, No palpitations Abdomen: + pain, No nausea, No vomiting, No diarrhea Female : No dysuria, No urinary frequency Psychiatric: No depression symptoms, No anxiety, No insomnia Heme: No abnormal bleeding/bruising Medications Current Inpatient Medications Medications (Trade) Dose Ordered Sig/Tra Route Start Time Stop Time Status Last Admin Dose Admin Heparin Sodium (Porcine) (Heparin Sq 5000 Unit/0.5ml) 5,000 unit Q8 SQ 01/23/17 22:00 02/22/17 21:59 01/23/17 23:21 5,000 UNIT Sodium Chloride 1,000 ml @ 80 mls/hr [id number] IV 01/23/17 18:30 02/22/17 18:29 01/23/17 20:05 80 MLS/HR Acetaminophen (Tylenol Tab) 650 mg Q4H PRN PO 01/23/17 16:30 02/22/17 16:29 Al Hydrox/Mg Hydrox/Simethicone (Maalox Max Susp) 15 ml Q4H PRN PO 01/23/17 16:30 02/22/17 16:29 Magnesium Hydroxide (Milk Of Magnesia Susp) 30 ml Q12H PRN PO 01/23/17 16:30 02/22/17 16:29 Ondansetron HCl (Zofran Inj) 4 mg Q6H PRN IV 01/23/17 16:30 02/22/17 16:29 Aspirin (Ecotrin Tab) 81 mg QAM PO 01/24/17 09:00 02/23/17 08:59 Polyethylene (Miralax Powder Packet) 17 gm DAILY PRN PO 01/23/17 16:30 02/22/17 16:29 Atorvastatin Calcium (Lipitor Tab) 40 mg HS PO 01/23/17 21:00 02/22/17 20:59 01/23/17 23:22 40 MG Ferrous Sulfate (Feosol Tab) 325 mg BID PO 01/23/17 21:00 02/22/17 20:59 01/23/17 23:22 325 MG Fluoxetine HCl (Prozac Cap) 20 mg HS PO 01/23/17 21:00 02/22/17 20:59 01/23/17 23:23 20 MG Metoprolol Tartrate (Lopressor Tab) 25 mg BID PO 01/23/17 21:00 02/22/17 20:59 01/23/17 23:23 25 MG Multivitamins (Multivitamin Tab) 1 tab HS PO 01/23/17 21:00 02/22/17 20:59 01/23/17 23:23 1 TAB Pantoprazole Sodium (Protonix Tab) 40 mg BID PO 01/23/17 21:00 02/22/17 20:59 01/23/17 23:23 40 MG Temazepam (Restoril Cap) 7.5 mg HS PRN PO 01/23/17 16:30 02/22/17 16:29 Levofloxacin 750 mg/Prmx 150 ml @ 100 mls/hr Q24H IV 01/24/17 10:00 01/31/17 09:59 Morphine Sulfate (MoRPHine SULFATE INJ) 1 mg Q4 PRN IV 01/23/17 16:45 02/06/17 16:44 01/24/17 05:39 1 MG Metronidazole 500 mg/Prmx 100 ml @ 100 mls/hr Q8@0200,1000,1800 IV 01/23/17 18:30 02/02/17 18:29 01/24/17 02:38 100 MLS/HR Oxycodone/ Acetaminophen (Percocet 5-325mg Tab) 1 tab Q4H PRN PO 01/23/17 18:30 02/06/17 18:29 Objective Vital Signs Date Time Temp Pulse Resp B/P (MAP) Pulse Ox O2 Delivery O2 Flow Rate FiO2 01/24/17 07:57 36.8 75 20 131/84 (100) 95 Nasal Cannula 2.0 01/24/17 04:01 36.8 81 18 130/85 (100) 96 Nasal Cannula 2.0 01/24/17 04:00 Nasal Cannula 2.0 01/24/17 00:01 Nasal Cannula 2.0 01/24/17 00:00 36.4 75 18 117/77 (90) 96 Nasal Cannula 2.0 01/23/17 20:00 Nasal Cannula 2.0 01/23/17 19:42 36.5 81 20 136/80 (98) 97 Room Air 2.0 01/23/17 18:16 36.4 74 18 139/85 96 Nasal Cannula 2.0 01/23/17 17:22 36.4 82 18 121/88 92 01/23/17 16:52 82 18 121/88 92 Room Air 01/23/17 14:29 74 01/23/17 14:23 75 16 118/78 97 Nasal Cannula 2.0 01/23/17 12:56 79 16 112/75 97 Nasal Cannula 2.0 01/23/17 11:42 75 20 119/79 97 Room Air 01/23/17 10:32 77 16 140/93 94 Nasal Cannula 2.0 01/23/17 09:36 76 01/23/17 09:21 96 Nasal Cannula 01/23/17 09:12 36.4 76 18 142/81 92 Room Air Physical Exam General Appearance: + moderate distress (secondary to pain) ENT: hearing grossly normal Respiratory/Chest: lungs clear, normal breath sounds, no respiratory distress, no accessory muscle use Cardiovascular: regular rate, rhythm, no edema, no murmur Abdomen: + guarding, + tenderness (epigastric, RUQ) Extremities: normal inspection, no pedal edema Neurologic/Psychiatric: no motor/sensory deficits, alert, normal mood/affect Skin: normal color Lymphatic: no adenopathy Laboratory Results Last 24 Hours Test 01/23/17 09:30 01/23/17 23:52 01/24/17 06:09 White Blood Count 10.29 K/uL 7.70 K/uL Red Blood Count 4.37 M/uL 4.10 M/uL Hemoglobin 13.0 g/dL 12.0 g/dL Hematocrit 39.1 % 37.1 % Mean Corpuscular Volume 89.5 fL 90.5 fL Mean Corpuscular Hemoglobin 29.7 pg 29.3 pg Mean Corpuscular Hemoglobin Concent 33.2 g/dl 32.3 g/dl Platelet Count 703 K/uL 652 K/uL Mean Platelet Volume 8.7 fL 8.7 fL Neutrophils (%) (Auto) 76.0 % Lymphocytes (%) (Auto) 12.0 % Monocytes (%) (Auto) 10.4 % Eosinophils (%) (Auto) 1.1 % Basophils (%) (Auto) 0.2 % Neutrophils # (Auto) 7.83 K/uL Lymphocytes # (Auto) 1.23 K/uL Monocytes # (Auto) 1.07 K/uL Eosinophils # (Auto) 0.11 K/uL Basophils # (Auto) 0.02 K/uL RDW Standard Deviation 47.0 fL 47.9 fL RDW Coefficient of Variation 14.4 % 14.5 % Immature Granulocyte % (Auto) 0.3 % Immature Granulocyte # (Auto) 0.03 K/uL Sodium Level 139 mmol/L 140 mmol/L Potassium Level 3.4 mmol/L 3.8 mmol/L Chloride Level 106 mmol/L 106 mmol/L Carbon Dioxide Level 26 mmol/L 27 mmol/L Anion Gap 7.0 mmol/L 7.0 mmol/L Blood Urea Nitrogen 13 mg/dl 12 mg/dl Creatinine 0.67 mg/dl 0.61 mg/dl Est Creatinine Clear Calc Drug Dose 63.7 ml/min 70.6 ml/min Estimated GFR () 99.7 102.8 Estimated GFR (Non- 86.0 88.7 BUN/Creatinine Ratio 18.7 19.5 Random Glucose 118 mg/dl 92 mg/dl Calcium Level 8.6 mg/dl 8.5 mg/dl Total Bilirubin 0.5 mg/dl 0.4 mg/dl Direct Bilirubin 0.1 mg/dl 0.1 mg/dl Aspartate Amino Transf (AST/SGOT) 25 U/L 16 U/L Alanine Aminotransferase (ALT/SGPT) 32 U/L 26 U/L Alkaline Phosphatase 90 U/L 77 U/L Troponin I 0.021 ng/ml 0.018 ng/ml < 0.015 ng/ml Total Protein 7.7 gm/dl 6.9 gm/dl Albumin 2.5 gm/dl 2.3 gm/dl Lipase 191 U/L Total Creatine Kinase 32 U/L 28 U/L Creatine Kinase MB < 0.5 ng/ml < 0.5 ng/ml Creatine Kinase MB Ratio Globulin 4.6 gm/dl Albumin/Globulin Ratio 0.5 Assessment and Plan This is a 76 year old female with a PMH of CAD and hx. of [place] s/p stents, CKD stage 3, HLD - recent surgical repair of paraesophageal hernia and laparoscopic fundoplication on January 09 - presents with back pain/chest pain, and pain in the epigastric region with deep inspiration Acute Cholecystitis 01/24 HIDA scan shows worsening acute cholecystitis appreciate general surgery input plan for lap moses today for now, continue Levaquin + Flagyl increased morphine to 2mg q4 01/23 there is slight gallbladder distention some CBD dilatation noted as well pain with deep inspiration correlates with distended gallbladder consulted general surgery - appreciate input due to recent surgery, will hold off on cholecystectomy for now HIDA scan pending morphine, Percocet PRN for pain Flagyl added Chest Pain 01/24 enzymes negative x3 monitor in tele after surgery, then transfer to med/surg 01/23 seems more like chest wall tenderness possibly due to lack of mobility after surgery will monitor in tele and check cardiac enzymes to rule out ACS initial enzymes negative EKG shows some T wave changes in the inferior leads, monitor in tele Possible Pneumonia 01/24 recent surgery; possible atelectatic changes for now continue Levaquin will need incentive spirometer post-operatively 01/23 CXR IMPRESSION: 1. No evidence of free intraperitoneal air 2. Bibasilar opacities, possibly atelectatic although an infectious/inflammatory process could appear similar particularly at the left lung base 3. Nonspecific 3 cm opacity visualized through the gastric air bubble due to recent surgery, this likely represents atelectasis more than pneumonia due to inspiratory pain; agree with continue Levaquin for five days total Recent Paraesophageal Hernia repair continue Protonix BID outpatient follow-up with [facility] DVT ppx subq heparin FULL CODE
[2017-01-24] MEDS: PANTOprazole SOD 40 MG TAB PO SCH ×2 (08:41→21:18)
[2017-01-24] MEDS: METOPROLOL TARTRATE 25 MG TAB PO SCH ×2 (08:41→21:16)
[2017-01-24] MEDS: ASPIRIN 81 MG ECTAB PO SCH (08:42)
[2017-01-24] MEDS: FERROUS SULFATE 325 MG TAB PO SCH ×2 (08:42→21:16)
[2017-01-24] MEDS: OXYCODONE/ACETAMINOPHEN 5-325 TAB PO PRN ×2 (09:08→16:03)
[2017-01-24] MEDS: LEVOFLOXACIN / D5W 750 MG in PREMIXED IN D5W 150 ML IV SCH (09:16)
[2017-01-24] MEDS ORDERED: FENTANYL CITRATE INJ 50 MCG/1 ML 2 ML VIAL ONE (09:21)
[2017-01-24] MEDS ORDERED: MIDAZOLAM HCL 1 MG/ML 2ML VIAL ONE (09:21)
[2017-01-24] MEDS ORDERED: GLYCOPYRROLATE INJ 0.2 MG/ML VIAL ONE (09:21)
[2017-01-24] MEDS ORDERED: LIDOCAINE HCL 2% 2 ML VIAL (20MG/ML) ONE (09:21)
[2017-01-24] MEDS ORDERED: NEOSTIGMINE METHYLSULFATE 5 MG/5 ML SYR ONE (09:21)
[2017-01-24] MEDS ORDERED: KETOROLAC TROMETHAMINE 30 MG/ML VIAL ONE (09:21)
[2017-01-24] MEDS ORDERED: DEXAMETHASONE SOD INJ 4 MG/ML VIAL ONE (09:21)
[2017-01-24] MEDS ORDERED: ROCURONIUM BROMIDE 10 MG/ML 5 ML VIAL ONE (09:21)
[2017-01-24] MEDS ORDERED: PROPOFOL IV EMULSION 10 MG/ML 20 ML VIAL IV ONE (09:21)
[2017-01-24] MEDS ORDERED: ONDANSETRON INJ 2 MG/ML 2 ML VIAL ONE (09:21)
[2017-01-24] MEDS ORDERED: ATROPINE SULFATE 0.1 MG/ML 5ML SYR IV PRN (10:45)
[2017-01-24] MEDS ORDERED: HYDROmorphone INJ 1 MG/ML SYR IV PRN (10:45)
[2017-01-24] MEDS ORDERED: EpHEDrine SULFATE INJ 50 MG/ML AMP IV PRN (10:45)
[2017-01-24] MEDS ORDERED: ONDANSETRON INJ 2 MG/ML 2 ML VIAL IV PRN (10:45)
[2017-01-24] MEDS ORDERED: FENTANYL CITRATE INJ 50 MCG/1 ML 2 ML VIAL IV PRN (10:45)
--- NOTE | 2017-01-24 11:28 | [facility] Operative Report ---
Operative Report Operative Date Jan 24, 2017. Pre-Operative Diagnosis Acute Cholecystitis Post-Operative Diagnosis Same as preoperative, chronic adhesions Procedure(s) Performed Laparoscopic Cholecystectomy, Lysis of Adhesions Surgeon Dr. Barrington Jackman [employer] Surgeon(s) Mark Bledsoe PA-C, Yandy Calderon PA-C Estimated Blood Loss 10ml Findings adhesions, enormous gallbladder with edema Specimens A.) Gallbladder and contents Drains #15 Rd CAROLE Anesthesia gen Complication(s) None Disposition Recovery Room / PACU Description of Procedure Patient was brought in the operating room placed operating room table in supine position. Mims catheter was in place pneumatic stockings were in place orogastric tube was placed. Her abdomen was prepped and draped in usual fashion. He had prior healing incisions from a hiatal hernia repair. Her abdomen was prepped and draped in usual fashion half percent plain Marcaine was used to anesthetize all incisions. Cystoscopy was made above the umbilicus. Carrying dissection down to the fascia placing a varies needle producing pneumoperitoneum. 11 mm port was placed this level and under visualization 35 mm ports were placed one cephalad to laterally. She had cemented adhesions of the omentum to the anterior abdominal wall and around the liver these were taken down. The gallbladder was extremely distended and enormous. It was aspirated of bile. Some difficulty dissection was carried out at the elke hepatis identifying the cystic duct which was very small. Cystic duct and cystic artery were clipped and transected. All layers dissected away from the liver in usual fashion. Was placed into an Endobag. Appropriate irrigation hemostasis and #15 round Gus-Jacques drain was placed through the lateral 5 mm port. It was placed in the subhepatic space and secured to the skin using 3- 0 nylon suture. A 5 mm scope the gallbladder was removed through the umbilical incision. The incision and fascia had to be enlarged because of the enormity of the gallbladder. Fascia templates closed using interrupted 0 PDS suture at the umbilicus closed using 4-0 nylon suture. Millimeters sites closed using subcuticular 4-0 Monocryl and Dermabond. Patient transferred to recovery room in stable condition. I attest to the content of the Intraoperative Record and any orders documented therein. Any exceptions are noted below.
[2017-01-24] MEDS ORDERED: HYDROCODONE/ACETAMOPHEN 5/325MG TAB PO PRN (11:30)
[2017-01-24] MEDS ORDERED: OXYCODONE/ACETAMINOPHEN 5-325 TAB PO PRN (11:30)
[2017-01-24] MEDS ORDERED: HYDROmorphone INJ 0.5 MG/0.5 ML SYR IV PRN (11:30)
[2017-01-24] MEDS ORDERED: MoRPHine SULFATE 2 MG/ML CARP IV PRN (12:00)
--- NOTE | 2017-01-24 12:35 | Anesthesiology Progress Note ---
Anesthesia Post Op Note Date & Time Jan 24, 2017 at 12:34 Vital Signs Pain Intensity: 0 Vital Signs Past 12 Hours Date Time Temp Pulse Resp B/P (MAP) Pulse Ox O2 Delivery O2 Flow Rate FiO2 01/24/17 12:20 66 16 123/74 95 Nasal Cannula 2 01/24/17 12:10 36.2 67 16 121/68 95 Nasal Cannula 2 01/24/17 12:00 70 16 123/73 93 Oxymask 3 01/24/17 11:50 72 16 120/75 94 Oxymask 5 01/24/17 11:40 71 16 120/80 94 Oxymask 10 01/24/17 11:33 36.1 81 16 132/80 96 Oxymask 10 01/24/17 08:00 95 Nasal Cannula 2.0 01/24/17 07:57 36.8 75 20 131/84 (100) 95 Nasal Cannula 2.0 01/24/17 04:01 36.8 81 18 130/85 (100) 96 Nasal Cannula 2.0 01/24/17 04:00 Nasal Cannula 2.0 Notes Mental Status: alert / awake / arousable, participated in evaluation Pt Amnestic to Procedure: Yes Nausea / Vomiting: adequately controlled Pain: adequately controlled Airway Patency, RR, SpO2: stable & adequate BP & HR: stable & adequate Hydration State: stable & adequate Anesthetic Complications: no major complications apparent
[2017-01-24] MEDS: SODIUM CHLORIDE 0.9% 1000ML 1,000 ML IV SCH ×2 (13:06→21:16)
[2017-01-24] MEDS: ONDANSETRON INJ 2 MG/ML 2 ML VIAL IV PRN (21:10)
[2017-01-24] MEDS: ATORVASTATIN 40 MG TAB PO SCH (21:17)
[2017-01-24] MEDS: MULTIVITAMIN TAB PO SCH (21:17)
[2017-01-24] MEDS: FLUOXETINE HCL 20 MG CAP PO SCH (21:18)
[2017-01-25] VITALS (14 sets, daily range): BP systolic 111–136; BP diastolic 71–87; PULSE 64–77; TEMP 36.3–36.9; O2SAT 89–100
[2017-01-25] MEDS: METRONIDAZOLE / NSS 500 MG in PREMIXED NSS 100 ML IV SCH ×3 (01:46→16:21)
[2017-01-25] MEDS: HEPARIN SOD 5000 UNIT/0.5 ML CARP SQ SCH ×3 (06:03→20:54)
[2017-01-25] MEDS: ONDANSETRON INJ 2 MG/ML 2 ML VIAL IV PRN ×2 (06:04→11:50)
[2017-01-25 07:17] LABS: HEMATOCRIT 36.6 % (37-47); MEAN CELL VOLUME 89.9 fL (80-100); MEAN CORPUSCULAR HEMOGLOBIN 28.7 pg (25-34); MEAN PLATELET VOLUME 8.8 fL (7.4-10.4); PLATELET COUNT 621 K/uL (130-400); RED BLOOD COUNT 4.07 M/uL (4.2-5.4); WHITE BLOOD COUNT 10.84 K/uL (4.8-10.8)
[2017-01-25 07:59] LABS: BUN/CREATININE RATIO 14.1 (10-20); CALCIUM 8.8 mg/dl (8.5-10.1); CREATININE 0.87 mg/dl (0.60-1.20); MAGNESIUM 1.9 mg/dl (1.8-2.4)
[2017-01-25] MEDS ORDERED: NURSING VERBAL MED ORDER ONE (08:30)
[2017-01-25] MEDS: PROMETHAZINE HCL INJ 12.5 MG in SODIUM CHLORIDE 0.9% 50ML 50 ML IV PRN ×2 (08:45→16:21)
[2017-01-25] MEDS: METOPROLOL TARTRATE 25 MG TAB PO SCH ×2 (09:02→20:49)
[2017-01-25] MEDS: FERROUS SULFATE 325 MG TAB PO SCH ×2 (09:02→20:49)
[2017-01-25] MEDS: ASPIRIN 81 MG ECTAB PO SCH (09:02)
[2017-01-25] MEDS: LEVOFLOXACIN / D5W 750 MG in PREMIXED IN D5W 150 ML IV SCH (09:03)
--- NOTE | 2017-01-25 09:24 | Surgery Progress Note ---
Surgery Progress Note Date of Service Jan 25, 2017. Subjective Post OP Day: 1 + feeling well F/U S/P lap moses, POD 1 pt had some nausea and vomiting last night, now pt feels better, she tolerated clear diet, no abdominal pain, CAROLE minimal, Objective Vital Signs: Date Time Temp Pulse Resp B/P (MAP) Pulse Ox O2 Delivery O2 Flow Rate FiO2 01/25/17 07:35 36.5 68 20 119/79 (92) 100 Room Air 2.0 01/25/17 04:02 36.4 77 20 136/87 (103) 95 Nasal Cannula 4.0 01/25/17 04:00 95 Nasal Cannula 2.0 01/25/17 00:01 96 Nasal Cannula 2.0 01/25/17 00:00 36.9 70 18 127/82 (97) 95 Nasal Cannula 4.0 01/24/17 20:11 36.8 64 18 108/72 (84) 95 Nasal Cannula 4.0 01/24/17 20:00 96 Nasal Cannula 2.0 01/24/17 16:00 96 Nasal Cannula 2.0 01/24/17 16:00 36.6 64 20 120/79 (93) 94 Nasal Cannula 2.0 01/24/17 15:00 36.4 76 18 126/80 (95) 95 Nasal Cannula 2.0 01/24/17 14:25 36.7 69 18 121/79 (93) 94 Nasal Cannula 2.0 01/24/17 13:55 36.7 65 18 117/78 (91) 95 Nasal Cannula 2.0 01/24/17 13:23 67 123/74 (90) 94 Room Air 01/24/17 13:05 66 115/75 (88) 93 2.0 01/24/17 13:00 66 18 118/76 (90) 93 Room Air 01/24/17 12:55 36.3 93 18 117/76 (90) 93 Room Air 01/24/17 12:50 36.5 70 18 119/75 (90) 94 Nasal Cannula 2.0 01/24/17 12:20 66 16 123/74 95 Nasal Cannula 2 01/24/17 12:10 36.2 67 16 121/68 95 Nasal Cannula 2 01/24/17 12:00 70 16 123/73 93 Oxymask 3 01/24/17 12:00 96 Nasal Cannula 2.0 01/24/17 11:50 72 16 120/75 94 Oxymask 5 01/24/17 11:40 71 16 120/80 94 Oxymask 10 01/24/17 11:33 36.1 81 16 132/80 96 Oxymask 10 General Appearance: WD/WN, no apparent distress Head: normocephalic Neck: supple, no JVD Respiratory/Chest: chest non-tender, lungs clear Cardiovascular: regular rate, rhythm, no edema, no gallop, no JVD Abdomen: normal bowel sounds, non tender, non distended, soft Incision(s): clean, dry, intact Extremities: normal range of motion, non-tender, normal inspection Laboratory Results: Results Past 24 Hours Test 01/25/17 06:48 Range/Units White Blood Count 10.84 4.8-10.8 K/uL Red Blood Count 4.07 4.2-5.4 M/uL Hemoglobin 11.7 12.0-16.0 g/dL Hematocrit 36.6 37-47 % Mean Corpuscular Volume 89.9 80-100 fL Mean Corpuscular Hemoglobin 28.7 25-34 pg Mean Corpuscular Hemoglobin Concent 32.0 32-36 g/dl RDW Standard Deviation 47.3 36.4-46.3 fL RDW Coefficient of Variation 14.3 11.5-14.5 % Platelet Count 621 130-400 K/uL Mean Platelet Volume 8.8 7.4-10.4 fL Sodium Level 141 136-145 mmol/L Potassium Level 4.0 3.5-5.1 mmol/L Chloride Level 107 98-107 mmol/L Carbon Dioxide Level 27 21-32 mmol/L Anion Gap 7.0 3-11 mmol/L Blood Urea Nitrogen 12 7-18 mg/dl Creatinine 0.87 0.60-1.20 mg/dl Est Creatinine Clear Calc Drug Dose 48.9 ml/min Estimated GFR () 75.5 Estimated GFR (Non- 65.2 BUN/Creatinine Ratio 14.1 10-20 Random Glucose 104 70-99 mg/dl Calcium Level 8.8 8.5-10.1 mg/dl Magnesium Level 1.9 1.8-2.4 mg/dl Assessment & Plan F/U S/P lap moses pt is doing better, continue treatment, will F/U
[2017-01-25] MEDS: PANTOprazole SOD 40 MG TAB PO SCH ×2 (11:34→20:49)
[2017-01-25] MEDS: OXYCODONE/ACETAMINOPHEN 5-325 TAB PO PRN (11:35)
[2017-01-25] MEDS: SODIUM CHLORIDE 0.9% 1000ML 1,000 ML IV SCH (11:35)
[2017-01-25] MEDS: HYDROmorphone INJ 1 MG/ML SYR IV PRN ×2 (11:50→16:12)
--- NOTE | 2017-01-25 15:04 | Progress Note ---
Internal Med Progress Note Date of Service: Jan 25, 2017. Provider Documentation: SUBJECTIVE: started on clear liquid diet today still feels nauseous not able to pass gas , no BM OBJECTIVE: Vital Signs-as noted below Exam: General-no sign of distress , pleasant Eyes-sclera non icteric ENT-NAd Neck-no JVD Lungs-CTA Heart-regular Abdomen-s/p Lap moses , CAROLE drain present, bowel sound diminished Extremities-no lower ext edema Neuro-no focal deficit Lab data as noted below. ASSESSMENT & PLAN: This is a 76 year old female with a PMH of CAD and hx. of [place] s/p stents, CKD stage 3, HLD - recent surgical repair of paraesophageal hernia and laparoscopic fundoplication on January 09 - Acute Cholecystitis presents with back pain/chest pain, and pain in the epigastric region with deep inspiration HIDA scan shows worsening acute cholecystitis S/P Laparoscopic cholecystectomy POD # 1 appreciate general surgery input cont pain management started on clear pt still has nausea , not able to pass gas yes asked to be OOB , increase activity as tolerated Possible Pneumonia cont incentive spirometer post-operatively CXR IMPRESSION: 1. No evidence of free intraperitoneal air 2. Bibasilar opacities, possibly atelectatic although an infectious/inflammatory process could appear similar particularly at the left lung base 3. Nonspecific 3 cm opacity visualized through the gastric air bubble due to recent surgery, this likely represents atelectasis more than pneumonia due to inspiratory pain; continue Levaquin for five days total Recent Paraesophageal Hernia repair continue Protonix BID outpatient follow-up with [facility] DVT ppx subq heparin OOB /ambulate FULL CODE DISPOSITION OOB as tolerated PT/OT eval discharge home when medically stable Vital Signs: Date Time Temp Pulse Resp B/P (MAP) Pulse Ox O2 Delivery O2 Flow Rate FiO2 01/25/17 12:00 100 Room Air 01/25/17 11:25 36.5 70 20 111/71 (84) 97 Nasal Cannula 2.0 01/25/17 08:00 100 Room Air 2.0 01/25/17 07:35 36.5 68 20 119/79 (92) 100 Room Air 2.0 01/25/17 04:02 36.4 77 20 136/87 (103) 95 Nasal Cannula 4.0 01/25/17 04:00 95 Nasal Cannula 2.0 01/25/17 00:01 96 Nasal Cannula 2.0 01/25/17 00:00 36.9 70 18 127/82 (97) 95 Nasal Cannula 4.0 01/24/17 20:11 36.8 64 18 108/72 (84) 95 Nasal Cannula 4.0 01/24/17 20:00 96 Nasal Cannula 2.0 01/24/17 16:00 96 Nasal Cannula 2.0 01/24/17 16:00 36.6 64 20 120/79 (93) 94 Nasal Cannula 2.0 01/24/17 15:00 36.4 76 18 126/80 (95) 95 Nasal Cannula 2.0 Lab Results: Results Past 24 Hours Test 01/25/17 06:48 Range/Units White Blood Count 10.84 4.8-10.8 K/uL Red Blood Count 4.07 4.2-5.4 M/uL Hemoglobin 11.7 12.0-16.0 g/dL Hematocrit 36.6 37-47 % Mean Corpuscular Volume 89.9 80-100 fL Mean Corpuscular Hemoglobin 28.7 25-34 pg Mean Corpuscular Hemoglobin Concent 32.0 32-36 g/dl RDW Standard Deviation 47.3 36.4-46.3 fL RDW Coefficient of Variation 14.3 11.5-14.5 % Platelet Count 621 130-400 K/uL Mean Platelet Volume 8.8 7.4-10.4 fL Sodium Level 141 136-145 mmol/L Potassium Level 4.0 3.5-5.1 mmol/L Chloride Level 107 98-107 mmol/L Carbon Dioxide Level 27 21-32 mmol/L Anion Gap 7.0 3-11 mmol/L Blood Urea Nitrogen 12 7-18 mg/dl Creatinine 0.87 0.60-1.20 mg/dl Est Creatinine Clear Calc Drug Dose 48.9 ml/min Estimated GFR () 75.5 Estimated GFR (Non- 65.2 BUN/Creatinine Ratio 14.1 10-20 Random Glucose 104 70-99 mg/dl Calcium Level 8.8 8.5-10.1 mg/dl Magnesium Level 1.9 1.8-2.4 mg/dl
[2017-01-25] MEDS ORDERED: SODIUM CHLORIDE 0.9% 1000ML 1,000 ML IV SCH (15:15)
[2017-01-25] MEDS: MULTIVITAMIN TAB PO SCH (20:50)
[2017-01-26] VITALS (10 sets, daily range): BP systolic 110–137; BP diastolic 70–85; PULSE 71–87; TEMP 36.3–37; O2SAT 90–96
[2017-01-26] MEDS: METRONIDAZOLE / NSS 500 MG in PREMIXED NSS 100 ML IV SCH ×3 (02:12→18:33)
[2017-01-26] MEDS: HEPARIN SOD 5000 UNIT/0.5 ML CARP SQ SCH ×3 (05:37→21:59)
[2017-01-26] MEDS: PROMETHAZINE HCL INJ 12.5 MG in SODIUM CHLORIDE 0.9% 50ML 50 ML IV PRN (06:19)
[2017-01-26] MEDS ORDERED: NURSING VERBAL MED ORDER ONE (07:30)
[2017-01-26] MEDS ORDERED: SODIUM CHLORIDE 0.65% NA SOLN 45 ML (OCEAN) ONE (07:31)
[2017-01-26] MEDS: FERROUS SULFATE 325 MG TAB PO SCH ×2 (07:35→20:56)
[2017-01-26] MEDS: OXYCODONE/ACETAMINOPHEN 5-325 TAB PO PRN ×2 (07:35→20:59)
[2017-01-26] MEDS: METOPROLOL TARTRATE 25 MG TAB PO SCH ×2 (07:35→20:57)
[2017-01-26] MEDS: PANTOprazole SOD 40 MG TAB PO SCH ×2 (07:36→20:58)
[2017-01-26] MEDS ORDERED: SODIUM CHLORIDE 0.65% NA SOLN 45 ML (OCEAN) PRN (07:45)
[2017-01-26] MEDS: LEVOFLOXACIN / D5W 750 MG in PREMIXED IN D5W 150 ML IV SCH (10:47)
--- NOTE | 2017-01-26 11:04 | Surgery Progress Note ---
Surgery Progress Note Date of Service Jan 26, 2017. Subjective + feeling well pt is dioing better, no abdominal pain, no nausea, no vomiting, Objective Vital Signs: Date Time Temp Pulse Resp B/P (MAP) Pulse Ox O2 Delivery O2 Flow Rate FiO2 01/26/17 10:59 36.8 73 16 110/70 (83) 90 Room Air 01/26/17 07:49 36.9 87 20 128/79 (95) 96 2.0 01/26/17 04:08 36.3 74 16 137/85 (102) 94 Nasal Cannula 2.0 01/26/17 04:00 94 Nasal Cannula 2.0 01/26/17 00:01 96 Nasal Cannula 2.0 01/25/17 23:10 36.6 64 16 122/79 (93) 96 Nasal Cannula 2.0 01/25/17 20:00 95 Nasal Cannula 01/25/17 19:31 95 Nasal Cannula 2.0 01/25/17 19:25 36.3 66 16 121/79 (93) 89 Room Air 01/25/17 16:00 100 Room Air 01/25/17 15:30 36.9 67 20 118/74 (89) 90 Room Air 01/25/17 12:00 100 Room Air 01/25/17 11:25 36.5 70 20 111/71 (84) 97 Nasal Cannula 2.0 General Appearance: WD/WN Head: normocephalic Neck: supple Respiratory/Chest: chest non-tender, lungs clear Cardiovascular: regular rate, rhythm, no edema, no JVD Abdomen: normal bowel sounds, non tender, non distended, soft Incision(s): clean, dry, intact Extremities: normal range of motion, non-tender, normal inspection Assessment & Plan F/U S/P lap moses pt is doing better, continue treatment, will F/U doing better, continue treatment, will F/U, F/U S/P lap moses pt is doing better, continue treatment, will F/U
--- NOTE | 2017-01-26 12:19 | Progress Note ---
Internal Med Progress Note Date of Service: Jan 26, 2017. Provider Documentation: SUBJECTIVE: much better today nausea has improved , completed 100 % of clears in breakfast does not recall able to pass gas yet abdominal pain minimum no fever or chills OBJECTIVE: Vital Signs-as noted below Exam: General-no sign of distress , pleasant Eyes-sclera non icteric ENT-NAd Neck-no JVD Lungs-CTA Heart-regular Abdomen-s/p Lap moses , CAROLE drain present, bowel sound diminished Extremities-no lower ext edema Neuro-no focal deficit Lab data as noted below. ASSESSMENT & PLAN: This is a 76 year old female with a PMH of CAD and hx. of [place] s/p stents, CKD stage 3, HLD - recent surgical repair of paraesophageal hernia and laparoscopic fundoplication on January 09 - Acute Cholecystitis presented with back pain/chest pain, and pain in the epigastric region with deep inspiration HIDA scan shows worsening acute cholecystitis S/P Laparoscopic cholecystectomy POD # 2 appreciate general surgery input cont pain management started on clear -tolerating well nausea has resolved , not able to pass gas yes asked to be OOB , increase activity as tolerated Possible Pneumonia cont incentive spirometer post-operatively CXR IMPRESSION: 1. No evidence of free intraperitoneal air 2. Bibasilar opacities, possibly atelectatic although an infectious/inflammatory process could appear similar particularly at the left lung base 3. Nonspecific 3 cm opacity visualized through the gastric air bubble due to recent surgery, this likely represents atelectasis more than pneumonia due to inspiratory pain; continue Levaquin ( Day # 4 ) for five days total Recent Paraesophageal Hernia repair continue Protonix BID outpatient follow-up with [facility] DVT ppx subq heparin OOB /ambulate FULL CODE DISPOSITION OOB as tolerated PT/OT eval discharge home when medically stable Vital Signs: Date Time Temp Pulse Resp B/P (MAP) Pulse Ox O2 Delivery O2 Flow Rate FiO2 01/26/17 11:31 36.8 73 16 90 2.0 01/26/17 11:20 36.4 71 19 117/77 (90) 93 Room Air 01/26/17 11:15 90 Room Air 01/26/17 10:59 36.8 73 16 110/70 (83) 90 Room Air 01/26/17 08:00 Nasal Cannula 2.0 01/26/17 07:49 36.9 87 20 128/79 (95) 96 2.0 01/26/17 04:08 36.3 74 16 137/85 (102) 94 Nasal Cannula 2.0 01/26/17 04:00 94 Nasal Cannula 2.0 01/26/17 00:01 96 Nasal Cannula 2.0 01/25/17 23:10 36.6 64 16 122/79 (93) 96 Nasal Cannula 2.0 01/25/17 20:00 95 Nasal Cannula 01/25/17 19:31 95 Nasal Cannula 2.0 01/25/17 19:25 36.3 66 16 121/79 (93) 89 Room Air 01/25/17 16:00 100 Room Air 01/25/17 15:30 36.9 67 20 118/74 (89) 90 Room Air
[2017-01-26] MEDS: ATORVASTATIN 40 MG TAB PO SCH (20:56)
[2017-01-26] MEDS: MULTIVITAMIN TAB PO SCH (20:57)
[2017-01-26] MEDS: FLUOXETINE HCL 20 MG CAP PO SCH (20:58)
[2017-01-27] MEDS: METRONIDAZOLE / NSS 500 MG in PREMIXED NSS 100 ML IV SCH ×3 (02:30→18:27)
[2017-01-27] MEDS: HEPARIN SOD 5000 UNIT/0.5 ML CARP SQ SCH ×3 (05:57→21:29)
--- NOTE | 2017-01-27 06:36 | Surgery Progress Note ---
Surgery Progress Note Date of Service Jan 27, 2017. Subjective tolerating clear liquids and had several bowel movements only walked to bathroom Objective Vital Signs: Date Time Temp Pulse Resp B/P (MAP) Pulse Ox O2 Delivery O2 Flow Rate FiO2 01/27/17 00:40 Room Air 01/27/17 00:40 Room Air 01/26/17 23:02 37.0 74 16 120/74 (89) 91 Room Air 01/26/17 15:36 36.7 71 18 123/78 (93) 92 Room Air 01/26/17 15:10 Room Air 01/26/17 11:31 36.8 73 16 90 2.0 01/26/17 11:20 36.4 71 19 117/77 (90) 93 Room Air 01/26/17 11:15 90 Room Air 01/26/17 10:59 36.8 73 16 110/70 (83) 90 Room Air 01/26/17 08:00 Nasal Cannula 2.0 01/26/17 07:49 36.9 87 20 128/79 (95) 96 2.0 General Appearance: no apparent distress Respiratory/Chest: no respiratory distress Abdomen: soft Incision(s): drainage (serous) Assessment & Plan 01/27/17- advance diet, cont IV atbx for now- ambulate if progresses and ok with med team- possible d/c tomorrow- d/c drain prior to d/c 01/24/17- likely worsening acute cholecystitis- I favor lap moses at this point as she could develop necrotizing cholecystitis will discuss with med team this am 01/24/17- likely worsening acute cholecystitis- I favor lap moses at this point as she could develop necrotizing cholecystitis will discuss with med team this am
[2017-01-27] MEDS ORDERED: OXYC-57 PO (06:37)
[2017-01-27] MEDS ORDERED: CIPR-255 PO (06:37)
--- NOTE | 2017-01-27 06:39 | Discharge Instructions ---
Discharge Instructions Date of Service Jan 27, 2017. Admission Reason for Admission: Cholecystitis, Pneumonia Discharge Discharge Diagnosis / Problem: acute and chronic cholecystitis Discharge Goals Goal(s): Decrease discomfort, Improve function, Improve disease control Activity Recommendations Activity Limitations: as noted below Lifting Limitations: no more than 10 pounds Exercise/Sports Limitations: until after follow-up appointment May Resume Sexual Activity: when tolerated Shower/Bathe: tomorrow Driving or Machine Use: 1 week SPECIAL CARE INSTRUCTIONS: * Cover incisions and change daily for comfort/drainage. * May use ibuprofen for pain as tolerated. * Expect some swelling and bruising. Call your doctor if: * Temperature above 101 degrees * Pain not relieved by pain medicine ordered * There is increased drainage or redness from any incision * You have any unanswered questions or concerns [phone]. FOLLOW UP VISIT: If not already scheduled, please call the office for a follow-up visit. for next week- some suture removal OFFICE PHONE NUMBER: Dr. Jackman Office . Current Hospital Diet Patient's current hospital diet: AHA Diet (Heart Healthy) Discharge Diet Recommended Diet: AHA Diet (Heart Healthy) Procedures Procedures Performed: Laparoscopic Cholecystectomy, Lysis of Adhesions Pending Studies Studies pending at discharge: no Medical Emergencies . Who to Call and When: Medical Emergencies: If at any time you feel your situation is an emergency, please call 911 immediately. . Non-Emergent Contact Non-Emergency issues call your: Primary Care Provider, Surgeon . "Provider Documentation" section prepared by Barrington Jackman. . VTE Core Measure Inpt VTE Proph given/why not?: Unfractionated heparin SQ, SCD's
[2017-01-27 07:23] VITALS: BP 130/83; PULSE 68; TEMP 36.7; O2SAT 91
--- NOTE | 2017-01-27 07:46 | Anesthesiology Progress Note ---
Anesthesia Post Op Note Date & Time Jan 27, 2017 at 07:45 Vital Signs Pain Intensity: 0.0 Vital Signs Past 12 Hours Date Time Temp Pulse Resp B/P (MAP) Pulse Ox O2 Delivery O2 Flow Rate FiO2 01/27/17 07:23 36.7 68 16 130/83 (99) 91 Room Air 01/27/17 00:40 Room Air 01/27/17 00:40 Room Air 01/26/17 23:02 37.0 74 16 120/74 (89) 91 Room Air Notes Mental Status: alert / awake / arousable, participated in evaluation Pt Amnestic to Procedure: Yes Nausea / Vomiting: adequately controlled Pain: adequately controlled Airway Patency, RR, SpO2: stable & adequate BP & HR: stable & adequate Hydration State: stable & adequate Anesthetic Complications: no major complications apparent
[2017-01-27 07:51] VITALS: BP 129/79; PULSE 67; TEMP 36.6; O2SAT 91
[2017-01-27] MEDS: ASPIRIN 81 MG ECTAB PO SCH (08:14)
[2017-01-27] MEDS: METOPROLOL TARTRATE 25 MG TAB PO SCH ×2 (08:14→21:25)
[2017-01-27] MEDS: FERROUS SULFATE 325 MG TAB PO SCH ×2 (08:15→21:24)
[2017-01-27] MEDS: PANTOprazole SOD 40 MG TAB PO SCH ×2 (08:17→21:24)
[2017-01-27] MEDS: LEVOFLOXACIN / D5W 750 MG in PREMIXED IN D5W 150 ML IV SCH (09:33)
[2017-01-27 15:30] VITALS: BP 113/75; PULSE 82; TEMP 36.5; O2SAT 93
--- NOTE | 2017-01-27 18:34 | Progress Note ---
Internal Med Progress Note Date of Service: Jan 27, 2017. Provider Documentation: SUBJECTIVE: diet advanced to solid tolerating well having bowel movement minimum pain at surgical site possible dc home tomorrow OBJECTIVE: Vital Signs-as noted below Exam: General-no sign of distress , pleasant Eyes-sclera non icteric ENT-NAd Neck-no JVD Lungs-CTA Heart-regular Abdomen-s/p Lap moses , CAROLE drain present, bowel sound diminished Extremities-no lower ext edema Neuro-no focal deficit Lab data as noted below. ASSESSMENT & PLAN: This is a 76 year old female with a PMH of CAD and hx. of [place] s/p stents, CKD stage 3, HLD - recent surgical repair of paraesophageal hernia and laparoscopic fundoplication on January 09 - Acute Cholecystitis presented with back pain/chest pain, and pain in the epigastric region with deep inspiration HIDA scan shows worsening acute cholecystitis S/P Laparoscopic cholecystectomy POD # 3 appreciate general surgery input diet advanced to solid -tolerating well having bowel movement Drain will be discontinued tomorrow Possible Pneumonia cont incentive spirometer post-operatively CXR IMPRESSION: 1. No evidence of free intraperitoneal air 2. Bibasilar opacities, possibly atelectatic although an infectious/inflammatory process could appear similar particularly at the left lung base 3. Nonspecific 3 cm opacity visualized through the gastric air bubble due to recent surgery, this likely represents atelectasis more than pneumonia due to inspiratory pain; Levaquin ( Day # 5 ) for five days Recent Paraesophageal Hernia repair continue Protonix BID outpatient follow-up with [facility] DVT ppx subq heparin OOB /ambulate FULL CODE DISPOSITION possible Dc home tomorrow Vital Signs: Date Time Temp Pulse Resp B/P (MAP) Pulse Ox O2 Delivery O2 Flow Rate FiO2 01/28/17 07:30 36.8 73 16 136/68 (90) 94 Room Air 01/28/17 00:50 Room Air 01/27/17 23:09 36.8 80 16 145/84 (104) 92 Room Air 01/27/17 16:15 Room Air 01/27/17 15:30 36.5 82 18 113/75 (88) 93 Room Air
[2017-01-27] MEDS: MULTIVITAMIN TAB PO SCH (21:24)
[2017-01-27] MEDS: FLUOXETINE HCL 20 MG CAP PO SCH (21:24)
[2017-01-27] MEDS: ATORVASTATIN 40 MG TAB PO SCH (21:25)
[2017-01-27 23:09] VITALS: BP 145/84; PULSE 80; TEMP 36.8; O2SAT 92
[2017-01-28] MEDS: METRONIDAZOLE / NSS 500 MG in PREMIXED NSS 100 ML IV SCH (02:39)
--- NOTE | 2017-01-28 06:09 | Surgery Progress Note ---
Surgery Progress Note Date of Service Jan 28, 2017. Subjective tolerating diet Objective Vital Signs: Date Time Temp Pulse Resp B/P (MAP) Pulse Ox O2 Delivery O2 Flow Rate FiO2 01/28/17 00:50 Room Air 01/27/17 23:09 36.8 80 16 145/84 (104) 92 Room Air 01/27/17 16:15 Room Air 01/27/17 15:30 36.5 82 18 113/75 (88) 93 Room Air 01/27/17 08:10 Room Air 01/27/17 07:51 36.6 67 16 129/79 (96) 91 Room Air 01/27/17 07:23 36.7 68 16 130/83 (99) 91 Room Air General Appearance: no apparent distress Respiratory/Chest: no respiratory distress Abdomen: soft Incision(s): intact Assessment & Plan 01/28/17- doing well- d/c drain, instructions and scripts in chart- d/c when ok with medical team 01/27/17- advance diet, cont IV atbx for now- ambulate if progresses and ok with med team- possible d/c tomorrow- d/c drain prior to d/c 01/24/17- likely worsening acute cholecystitis- I favor lap moses at this point as she could develop necrotizing cholecystitis will discuss with med team this am 01/27/17- advance diet, cont IV atbx for now- ambulate if progresses and ok with med team- possible d/c tomorrow- d/c drain prior to d/c 01/24/17- likely worsening acute cholecystitis- I favor lap moses at this point as she could develop necrotizing cholecystitis will discuss with med team this am
[2017-01-28] MEDS: HEPARIN SOD 5000 UNIT/0.5 ML CARP SQ SCH (06:36)
[2017-01-28 07:30] VITALS: BP 136/68; PULSE 73; TEMP 36.8; O2SAT 94
[2017-01-28] MEDS: FERROUS SULFATE 325 MG TAB PO SCH (09:38)
[2017-01-28] MEDS: METOPROLOL TARTRATE 25 MG TAB PO SCH (09:38)
[2017-01-28] MEDS: PANTOprazole SOD 40 MG TAB PO SCH (09:38)
[2017-01-28] MEDS: ASPIRIN 81 MG ECTAB PO SCH (09:39)
[2017-01-28 09:40] VITALS: BP 136/84; PULSE 73
[2017-01-28 10:07] VITALS: O2SAT 94
--- NOTE | 2017-01-28 11:58 | Progress Note ---
Subjective Date of Service: Jan 28, 2017. Subjective Pt evaluation today including: conversation w/ patient, physical exam, lab review, review of studies, review of inpatient medication list Saw/examined the patient in room 363 Doing well today, no problems/issues to note today Good PO intake, no nausea/vomiting, no fevers/chills Problem List Medical Problems: (1) Cholecystitis Status: Acute (2) Pneumonia Status: Acute (3) Right upper quadrant abdominal pain Status: Acute Review of Systems Constitutional: No fever, No chills, No weakness Respiratory: No cough, No shortness of breath Cardiac: No chest pain Abdomen: No pain, No nausea, No vomiting, No diarrhea Heme: No abnormal bleeding/bruising Medications Current Inpatient Medications Medications (Trade) Dose Ordered Sig/Tra Route Start Time Stop Time Status Last Admin Dose Admin Heparin Sodium (Porcine) (Heparin Sq 5000 Unit/0.5ml) 5,000 unit Q8 SQ 01/23/17 22:00 02/22/17 21:59 01/28/17 06:36 5,000 UNIT Acetaminophen (Tylenol Tab) 650 mg Q4H PRN PO 01/23/17 16:30 02/22/17 16:29 Al Hydrox/Mg Hydrox/Simethicone (Maalox Max Susp) 15 ml Q4H PRN PO 01/23/17 16:30 02/22/17 16:29 Magnesium Hydroxide (Milk Of Magnesia Susp) 30 ml Q12H PRN PO 01/23/17 16:30 02/22/17 16:29 Ondansetron HCl (Zofran Inj) 4 mg Q6H PRN IV 01/23/17 16:30 02/22/17 16:29 01/25/17 11:50 4 MG Aspirin (Ecotrin Tab) 81 mg QAM PO 01/24/17 09:00 02/23/17 08:59 Future hold 01/28/17 09:39 81 MG Polyethylene (Miralax Powder Packet) 17 gm DAILY PRN PO 01/23/17 16:30 02/22/17 16:29 Atorvastatin Calcium (Lipitor Tab) 40 mg HS PO 01/23/17 21:00 02/22/17 20:59 Future hold 01/27/17 21:25 40 MG Ferrous Sulfate (Feosol Tab) 325 mg BID PO 01/23/17 21:00 02/22/17 20:59 01/28/17 09:38 325 MG Fluoxetine HCl (Prozac Cap) 20 mg HS PO 01/23/17 21:00 02/22/17 20:59 Future hold 01/27/17 21:24 20 MG Metoprolol Tartrate (Lopressor Tab) 25 mg BID PO 01/23/17 21:00 02/22/17 20:59 01/28/17 09:38 25 MG Multivitamins (Multivitamin Tab) 1 tab HS PO 01/23/17 21:00 02/22/17 20:59 01/27/17 21:24 1 TAB Pantoprazole Sodium (Protonix Tab) 40 mg BID PO 01/23/17 21:00 02/22/17 20:59 01/28/17 09:38 40 MG Temazepam (Restoril Cap) 7.5 mg HS PRN PO 01/23/17 16:30 02/22/17 16:29 Morphine Sulfate (MoRPHine SULFATE INJ) 2 mg Q4 PRN IV 01/24/17 12:00 02/06/17 16:44 Hydromorphone HCl (Dilaudid Inj) 0.5 mg Q3H PRN IV 01/24/17 11:30 02/07/17 11:29 01/25/17 08:45 0.5 MG Hydromorphone HCl (Dilaudid Inj) 1 mg Q3H PRN IV 01/24/17 11:30 02/07/17 11:29 01/25/17 16:12 1 MG Oxycodone/ Acetaminophen (Percocet 5-325mg Tab) 1 tab Q4H PRN PO 01/24/17 11:30 02/07/17 11:29 Oxycodone/ Acetaminophen (Percocet 5-325mg Tab) 2 tab Q4H PRN PO 01/24/17 11:30 02/07/17 11:29 01/26/17 20:59 2 TAB Promethazine HCl 12.5 mg/Sodium Chloride 50.5 ml @ 202 mls/hr Q6H PRN IV 01/25/17 08:30 02/24/17 08:29 01/26/17 06:19 202 MLS/HR Sodium Chloride (Minkler Nasal Alfred) 1 sprays PRN PRN NA 01/26/17 07:45 02/25/17 07:44 Objective Vital Signs Date Time Temp Pulse Resp B/P (MAP) Pulse Ox O2 Delivery O2 Flow Rate FiO2 01/28/17 10:07 94 Room Air 01/28/17 09:40 73 136/84 (101) 01/28/17 08:00 Room Air 01/28/17 07:30 36.8 73 16 136/68 (90) 94 Room Air 01/28/17 00:50 Room Air 01/27/17 23:09 36.8 80 16 145/84 (104) 92 Room Air 01/27/17 16:15 Room Air 01/27/17 15:30 36.5 82 18 113/75 (88) 93 Room Air Physical Exam General Appearance: no apparent distress Respiratory/Chest: chest non-tender, lungs clear, normal breath sounds, no respiratory distress, no accessory muscle use Cardiovascular: regular rate, rhythm, no edema, no murmur Abdomen: normal bowel sounds, non tender, soft Extremities: normal range of motion, non-tender, normal inspection, no pedal edema, no calf tenderness Neurologic/Psychiatric: no motor/sensory deficits, alert, normal mood/affect Assessment and Plan This is a 76 year old female with a PMH of CAD and hx. of [place] s/p stents, CKD stage 3, HLD - recent surgical repair of paraesophageal hernia and laparoscopic fundoplication on January 09 - presents with back pain/chest pain, and pain in the epigastric region with deep inspiration Acute Cholecystitis 01/28 s/p lap moses doing well drain removed pain controlled appreciate general surgery input d/c to home today with Cipro and oxycodone PRN 01/24 HIDA scan shows worsening acute cholecystitis appreciate general surgery input plan for lap moses today for now, continue Levaquin + Flagyl increased morphine to 2mg q4 01/23 there is slight gallbladder distention some CBD dilatation noted as well pain with deep inspiration correlates with distended gallbladder consulted general surgery - appreciate input due to recent surgery, will hold off on cholecystectomy for now HIDA scan pending morphine, Percocet PRN for pain Flagyl added Chest Pain 01/24 enzymes negative x3 monitor in tele after surgery, then transfer to med/surg 01/23 seems more like chest wall tenderness possibly due to lack of mobility after surgery will monitor in tele and check cardiac enzymes to rule out ACS initial enzymes negative EKG shows some T wave changes in the inferior leads, monitor in tele Possible Pneumonia - resolved 01/24 recent surgery; possible atelectatic changes for now continue Levaquin will need incentive spirometer post-operatively 01/23 CXR IMPRESSION: 1. No evidence of free intraperitoneal air 2. Bibasilar opacities, possibly atelectatic although an infectious/inflammatory process could appear similar particularly at the left lung base 3. Nonspecific 3 cm opacity visualized through the gastric air bubble due to recent surgery, this likely represents atelectasis more than pneumonia due to inspiratory pain; agree with continue Levaquin for five days total Recent Paraesophageal Hernia repair continue Protonix BID outpatient follow-up with [facility] DVT ppx subq heparin FULL CODE
--- NOTE | 2017-01-28 12:03 | Discharge Instructions ---
Discharge Instructions Date of Service Jan 28, 2017. Admission Reason for Admission: Cholecystitis, Pneumonia Discharge Discharge Diagnosis / Problem: Acute cholecystitis s/p cholecystectomy, pneumonia - resolved Discharge Goals Goal(s): Decrease discomfort, Improve function, Diagnostic testing, Therapeutic intervention Activity Recommendations Activity Limitations: resume your previous activity . Instructions / Follow-Up Instructions / Follow-Up Please follow-up with Dr. Barnhart on January 31 at 1:45PM Follow instructions as per general surgery Current Hospital Diet Patient's current hospital diet: AHA Diet (Heart Healthy) Discharge Diet Recommended Diet: AHA Diet (Heart Healthy) Procedures Procedures Performed: Laparoscopic Cholecystectomy, Lysis of Adhesions Pending Studies Studies pending at discharge: no Medical Emergencies . Who to Call and When: Medical Emergencies: If at any time you feel your situation is an emergency, please call 911 immediately. . Non-Emergent Contact Non-Emergency issues call your: Primary Care Provider, Surgeon . . "Provider Documentation" section prepared by Yovanny Nix. . VTE Core Measure Inpt VTE Proph given/why not?: Unfractionated heparin SQ, SCD's
--- NOTE | 2017-01-28 12:05 | Discharge Summary ---
Discharge Summary Date of Service Jan 28, 2017. Discharge Summary Admission Date: Jan 23, 2017 at 16:34 Discharge Date: Jan 28, 2017 Discharge Disposition: Home Principal Diagnosis: Acute Cholecystitis s/p Lap Moses and Lysis of Adhesions Pneumonia - resolved Medication Reconciliation New Medications: Ciprofloxacin Hcl (Cipro) 500 Mg Tab 1 TAB PO BID for 7 Days, #14 TAB Oxycodone/Acetaminophen 5MG/325MG (Percocet 5MG/325MG) Tab 1-2 TABLETS PO q 6 hrs PRN for Pain, #30 TAB PAIN Continued Medications: Aspirin (Aspirin Chewable) 81 Mg Chew 81 MG PO QAM, TAB Atorvastatin (Lipitor) 40 Mg Tab 40 MG PO HS, TAB Cetirizine Hcl (Zyrtec) 10 Mg Tab 10 MG PO HS, TAB Ferrous Sulfate (Ferrous Sulfate) 325 Mg Tab 1 TAB PO BID Fluoxetine Hcl (Prozac) 20 Mg Cap 20 MG PO HS, CAP Metoprolol Tartrate (Lopressor) (Lopressor) 25 Mg Tab 25 MG PO BID, TAB Multivitamin (Multivitamin) Tab 1 TAB PO HS, TAB Nitroglycerin (Nitrostat) 0.4 Mg Sub 0.4 MG UT PRN, BTL Pantoprazole (Protonix) 40 Mg Tab 40 MG PO BID, #60 TAB 1 Refill Temazepam (Restoril) 15 Mg Cap 7.5 MG PO HS PRN for Sleep, CAP Admission Information HPI (per Admitting provider): This is a 76 year old female with a PMH of CAD and hx. of [place] s/p stents, CKD stage 3, HLD - recent surgical repair of paraesophageal hernia and laparoscopic fundoplication on January 09 - presents with back pain/chest pain, and pain in the epigastric region with deep inspiration. She states she was doing well after surgery until one day prior to arrival to the hospital. That's when her symptoms began - denies nausea/vomiting/fevers/chills. Also, c/o cough that began earlier today. Ambulating with assistance at home. States that she has been taking her medications as prescribed, including Protonix twice a day. She was scheduled to see the surgeon at [facility] today, where she had her hernia repair done. Physical Exam (per Admitting): General Appearance: + mild distress (pain with movement/inspiration) Head: normocephalic, atraumatic Eyes: normal inspection ENT: hearing grossly normal Respiratory/Chest: chest non-tender, lungs clear, normal breath sounds, no respiratory distress, no accessory muscle use Cardiovascular: regular rate, rhythm, no edema, no murmur Abdomen/GI: normal bowel sounds, soft, + tenderness (epigastric) Back: no CVA tenderness, no muscle spasm Extremities/Musculoskelatal: no calf tenderness, normal capillary refill, no pedal edema Neurologic/Psych: no motor/sensory deficits, alert, normal mood/affect Skin: normal color Lymphatic: no adenopathy Hospital Course This is a 76 year old female with a PMH of CAD and hx. of [place] s/p stents, CKD stage 3, HLD - recent surgical repair of paraesophageal hernia and laparoscopic fundoplication on January 09 - presents with back pain/chest pain, and pain in the epigastric region with deep inspiration Acute Cholecystitis 01/28 s/p lap moses doing well drain removed pain controlled appreciate general surgery input d/c to home today with Cipro and oxycodone PRN 01/24 HIDA scan shows worsening acute cholecystitis appreciate general surgery input plan for lap moses today for now, continue Levaquin + Flagyl increased morphine to 2mg q4 01/23 there is slight gallbladder distention some CBD dilatation noted as well pain with deep inspiration correlates with distended gallbladder consulted general surgery - appreciate input due to recent surgery, will hold off on cholecystectomy for now HIDA scan pending morphine, Percocet PRN for pain Flagyl added Chest Pain 01/24 enzymes negative x3 monitor in tele after surgery, then transfer to med/surg 01/23 seems more like chest wall tenderness possibly due to lack of mobility after surgery will monitor in tele and check cardiac enzymes to rule out ACS initial enzymes negative EKG shows some T wave changes in the inferior leads, monitor in tele Possible Pneumonia - resolved 01/24 recent surgery; possible atelectatic changes for now continue Levaquin will need incentive spirometer post-operatively 01/23 CXR IMPRESSION: 1. No evidence of free intraperitoneal air 2. Bibasilar opacities, possibly atelectatic although an infectious/inflammatory process could appear similar particularly at the left lung base 3. Nonspecific 3 cm opacity visualized through the gastric air bubble due to recent surgery, this likely represents atelectasis more than pneumonia due to inspiratory pain; agree with continue Levaquin for five days total Recent Paraesophageal Hernia repair continue Protonix BID outpatient follow-up with [facility] DVT ppx subq heparin FULL CODE Total time spent on discharge = 40 minutes This includes examination of the patient, discharge planning, medication reconciliation, and communication with other providers. Discharge Instructions Please follow-up with Dr. Barnhart on January 31 at 1:45PM Follow instructions as per general surgery
[2017-01-28 12:28] VITALS: BP 136/84; PULSE 73; TEMP 36.8; O2SAT 94
== END 2017-01-28 13:00 | disposition home or self-care (01) | DRG 417 ==
LOC: EDBD 09:06 → C.EDA 09:07 → C.2T 16:34 → ENRESERV 16:56 → C.MSW 01-26 11:14
PROVIDERS: ADMIT Family Medicine; ATTEND Family Medicine
PROC: 0FT44ZZ Resection of Gallbladder, Percutaneous Endoscopic Approach (ICD-10-PCS; principal; 2017-01-24 09:15)
DX: K81.0 Acute cholecystitis (principal); J18.9 Pneumonia, unspecified organism; I25.10 Atherosclerotic heart disease of native coronary artery without angina pectoris; Z85.038 Personal history of other malignant neoplasm of large intestine; Z88.0 Allergy status to penicillin; N18.3 Chronic kidney disease, stage 3 (moderate); I25.2 Old myocardial infarction; F32.9 Major depressive disorder, single episode, unspecified; Z88.2 Allergy status to sulfonamides; K66.0 Peritoneal adhesions (postprocedural) (postinfection); Z98.890 Other specified postprocedural states; Z95.5 Presence of coronary angioplasty implant and graft

== ENCOUNTER 2017-02-27 12:18 | Inpatient (IN) | payer BC, OTHER ==
[~2017-02-27] VITALS: Ht 154.9 cm; Wt 64.0 kg
[~2017-02-27 12:18] MED LIST changes: +CIPR-255 PO; +OXYC-57 PO
[2017-02-27 12:30] VITALS: BP 113/78; PULSE 70; TEMP 36.5; O2SAT 96; Ht 154.9 cm; Wt 64.0 kg
[2017-02-27] MEDS ORDERED: ONDANSETRON INJ 2 MG/ML 2 ML VIAL IV PRN (13:00)
[2017-02-27] MEDS ORDERED: ACETAMINOPHEN 325 MG TAB PO PRN (13:00)
[2017-02-27] MEDS ORDERED: PROMETHAZINE HCL INJ 12.5 MG in SODIUM CHLORIDE 0.9% 50ML 50 ML IV PRN (13:15)
[2017-02-27 13:19] LABS: BASO % 0.5 %; BASO ABS # 0.04 K/uL (0-0.2); COMPLETE YES; EOS % 0.6 %; HEMATOCRIT 43.9 % (37-47); IG% 0.6 %; LYMPH % 23.2 %; LYMPH ABS # 1.87 K/uL (1.2-3.4); MEAN CELL VOLUME 87.5 fL (80-100); MEAN CORPUSCULAR HEMOGLOBIN 29.5 pg (25-34); MEAN CORPUSCULAR HGB CONC 33.7 g/dl (32-36); MEAN PLATELET VOLUME 9.2 fL (7.4-10.4); MONO % 9.4 %; NEUT % 65.7 %; PLATELET COUNT 342 K/uL (130-400); RED BLOOD COUNT 5.02 M/uL (4.2-5.4); WHITE BLOOD COUNT 8.06 K/uL (4.8-10.8)
[2017-02-27 13:29] LABS: INR 1.1 (0.9-1.1); PROTHROMBIN TIME (PATIENT) 11.3 SECONDS (9.0-12.0)
[2017-02-27 13:43] LABS: BUN/CREATININE RATIO 14.4 (10-20); CALCIUM 9.1 mg/dl (8.5-10.1); CREATININE 0.88 mg/dl (0.60-1.20); MAGNESIUM 1.8 mg/dl (1.8-2.4); POTASSIUM 3.3 mmol/L (3.5-5.1)
[2017-02-27 13:46] LABS: ALB/GLOB RATIO 0.6 (0.9-2); PHOSPHORUS 3.7 mg/dl (2.5-4.9)
--- NOTE | 2017-02-27 14:02 | DIAGNOSTIC IMAGING REPORT ---
CHEST 2 VIEWS ROUTINE CLINICAL HISTORY: crackles on exam PERSISTENT VOMITING. COMPARISON STUDY: 01/23/2017 FINDINGS: The heart is normal in size. It is no failure. There are linear by basilar opacities, consistent with subsegmental atelectasis. There are no pleural effusions. There is no lobar consolidation. There is no free intraperitoneal air.[ IMPRESSION: Bibasilar subsegmental atelectatic change. No evidence of free intraperitoneal air. Electronically signed by: Tyler Adames M.D. 02/27/2017 2:00 PM Dictated Date/Time: 02/27/2017 1:59 PM
--- NOTE | 2017-02-27 14:05 | DIAGNOSTIC IMAGING REPORT ---
ABDOMEN 2 VIEWS HISTORY: vomiting COMPARISON: [facility] 06/18/2016. Abdomen and pelvis CT 01/23/2017. FINDINGS: There is no pneumoperitoneum or pneumatosis. The bowel gas pattern is unremarkable. No evidence for bowel obstruction. No pathologic calcifications. Prior cholecystectomy. Levoscoliosis of the lumbar spine. Bibasilar linear densities suggestive of subsegmental atelectasis. Suture material within the right lower quadrant. Multiple pelvic phleboliths, unchanged. IMPRESSION: No evidence for bowel obstruction. Prior cholecystectomy. Electronically signed by: Blanco Pak M.D. 02/27/2017 2:04 PM Dictated Date/Time: 02/27/2017 2:01 PM
--- NOTE | 2017-02-27 14:09 | Medical Consult ---
Consultation Date of Consultation: Feb 27, 2017. Attending Physician: Yovanny Nix DO History of Present Illness adm w/ N/V/D over several days- given Zofran and Imodium by PCP- these have been no help. She shows evidence of dehydration. approx 6 weeks ago- lap hiatal hernia repair -Mark Ndiaye then 01/24/17- lap moses here- acute/chronic cholecystitis. I saw her in office 02/13/17- doing very well- then today- adm from office. also has some crampy abd pain Past Medical/Surgical History Medical Problems: (1) Cholecystitis Status: Acute (2) Pneumonia Status: Acute (3) Right upper quadrant abdominal pain Status: Acute Family History Beta thalassemia [employer] Social History Smoking Status: Former Smoker Drug Use: none Marital Status: Housing Status: lives with family Occupation Status: retired Allergies Coded Allergies: Hydrocodone (Verified Allergy, Unknown, UNKNOWN, 01/23/17) Macrolides (Verified Allergy, Unknown, ALLERGIC TO "MYCINS", 01/23/17) Penicillins (Verified Allergy, Unknown, HIVES, 01/23/17) HIVES IN THROAT Sulfa Drugs (Verified Allergy, Unknown, HIVES, 01/23/17) HIVES IN THROAT Lisinopril (Verified Adverse Reaction, Unknown, cough, 01/23/17) Current Inpatient Medications Current Inpatient Medications Medications (Trade) Dose Ordered Sig/Tra Route Start Time Stop Time Status Last Admin Dose Admin Acetaminophen (Tylenol Tab) 650 mg Q4H PRN PO 02/27/17 13:00 03/29/17 12:59 Ondansetron HCl (Zofran Inj) 4 mg Q6H PRN IV 02/27/17 13:00 03/29/17 12:59 Heparin Sodium (Porcine) (Heparin Sq 5000 Unit/0.5ml) 5,000 unit Q12H SQ 02/27/17 13:00 03/29/17 12:59 UNV Promethazine HCl 12.5 mg/Sodium Chloride 50.5 ml @ 204 mls/hr Q6H PRN IV 02/27/17 13:15 03/29/17 13:14 Review of Systems Constitutional: No fever, No chills Respiratory: No cough, No shortness of breath Cardiovascular: No chest pain Abdomen: + nausea, + vomiting (mild intermittent cramps) Genitourinary - Female: No dysuria Neurologic: + weakness Endocrine: + fatigue Integumentary: No rash Physical Exam Date Time Temp Pulse Resp B/P (MAP) Pulse Ox O2 Delivery O2 Flow Rate FiO2 02/27/17 12:30 Room Air 02/27/17 12:30 36.5 70 18 113/78 (90) 96 Room Air 02/27/17 12:30 36.5 70 18 113/78 Room Air General Appearance: + mild distress Eyes: normal inspection ENT: + pertinent finding (dry mucous membranes) Neck: supple Respiratory/Chest: no respiratory distress Abdomen/GI: non tender (min bowel sounds), soft Laboratory Results Last 24 Hours Test 02/27/17 12:47 02/27/17 12:57 White Blood Count 8.06 K/uL Red Blood Count 5.02 M/uL Hemoglobin 14.8 g/dL Hematocrit 43.9 % Mean Corpuscular Volume 87.5 fL Mean Corpuscular Hemoglobin 29.5 pg Mean Corpuscular Hemoglobin Concent 33.7 g/dl Platelet Count 342 K/uL Mean Platelet Volume 9.2 fL Neutrophils (%) (Auto) 65.7 % Lymphocytes (%) (Auto) 23.2 % Monocytes (%) (Auto) 9.4 % Eosinophils (%) (Auto) 0.6 % Basophils (%) (Auto) 0.5 % Neutrophils # (Auto) 5.29 K/uL Lymphocytes # (Auto) 1.87 K/uL Monocytes # (Auto) 0.76 K/uL Eosinophils # (Auto) 0.05 K/uL Basophils # (Auto) 0.04 K/uL RDW Standard Deviation 45.5 fL RDW Coefficient of Variation 14.2 % Immature Granulocyte % (Auto) 0.6 % Immature Granulocyte # (Auto) 0.05 K/uL Prothrombin Time 11.3 SECONDS Prothromb Time International Ratio 1.1 Sodium Level 138 mmol/L Potassium Level 3.3 mmol/L Chloride Level 102 mmol/L Carbon Dioxide Level 24 mmol/L Anion Gap 12.0 mmol/L Blood Urea Nitrogen 13 mg/dl Creatinine 0.88 mg/dl Est Creatinine Clear Calc Drug Dose 47.3 ml/min Estimated GFR () 74.5 Estimated GFR (Non- 64.3 BUN/Creatinine Ratio 14.4 Random Glucose 89 mg/dl Calcium Level 9.1 mg/dl Phosphorus Level 3.7 mg/dl Magnesium Level 1.8 mg/dl Total Bilirubin 0.4 mg/dl Aspartate Amino Transf (AST/SGOT) 18 U/L Alanine Aminotransferase (ALT/SGPT) 31 U/L Alkaline Phosphatase 106 U/L Total Protein 7.3 gm/dl Albumin 2.8 gm/dl Globulin 4.5 gm/dl Albumin/Globulin Ratio 0.6 Lipase 48 U/L Assessment & Plan 02/27/17- adm with N/V/D, mild lower abd cramps- dehydration. wbc and LFTs normal. abd film pending- may have ileus from V/Diarrhea. supportive care for now- consider CT w/ contrast 1-2 days depending on progress. may need GI eval at some point Has seen Dr Esparza in past
[2017-02-27] MEDS ORDERED: ONDA4TAB65 PO (14:21)
[2017-02-27] MEDS ORDERED: IMD/2 PO (14:21)
[2017-02-27] MEDS ORDERED: TEMAZEPAM 7.5 MG CAP PO PRN (14:30)
[2017-02-27] MEDS ORDERED: OPTIRAY 320 IV PRN (14:30)
[2017-02-27 15:19] VITALS: BP 100/68; PULSE 92; TEMP 36.4; O2SAT 92
[2017-02-27] MEDS: D5NSS + 20MEQ KCL 1,000 ML IV SCH (15:25)
--- NOTE | 2017-02-27 15:41 | History and Physical ---
History & Physical Date & Time of Service: Feb 27, 2017 ~ 13:00 Chief Complaint: Nausea, Vomiting, Diarrhea Primary Care Physician: Bruce Sheridan D.O. History of Present Illness 76 year old female who was referred for direct admission by Dr. Jackman for dehydration, persistent nausea, vomiting, and diarrhea. Patient underwent paraesophageal hernia repair at [facility] 01/08. She then presented to [facility] 01/24 with RUQ pain and found to have acute cholecystitis and underwent lap moses on 01/24. [facility]. She reports she had been doing well until about one week ago. She has developed persistent nausea, vomiting, and diarrhea. She reports she is unable to keep anything down, including her medications. She reports any times she tries to eat, she will develop crampy lower abdominal pain and diarrhea or vomiting. She reports multiple episodes per day. Diarrhea is mucousy, non bloody. She denies hematemesis or coffee ground emesis. She denies fever and chills. She reports feeling lightheaded and dizzy but denies any syncopal events. No chest pain or shortness of breath. She denies any urinary symptoms. At the time of my exam, patient is resting in bed in no acute distress. 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 Status: Chronic (3) Depression Status: Chronic (4) GI bleed Status: Chronic (5) LIGIA (iron deficiency anemia) Status: Chronic (6) Pilonidal cyst Status: Chronic Surgical Problems: (1) H/O dilation and curettage Status: Chronic (2) History of oophorectomy, unilateral Status: Chronic (3) Hx of tubal ligation Status: Chronic (4) S/P anal fissurectomy Status: Chronic (5) S/P cholecystectomy Status: Chronic (6) S/P repair of paraesophageal hernia Status: Chronic Family History FH: CABG (coronary artery bypass surgery) FATHER FH: ovarian cancer MOTHER Social History Smoking Status: Former Smoker Alcohol Use: occasionally Immunizations History of Influenza Vaccine: Yes Influenza Vaccine Date: May 24, 2016 History of Tetanus Vaccine?: Yes Tetanus Immunization Date: Apr 01, 2013 History of Pneumococcal: Yes Pneumococcal Date: Jun 06, 2014 Multi-Drug Resistant Organisms History of MDRO: No Allergies Coded Allergies: Hydrocodone (Verified Allergy, Unknown, UNKNOWN, 01/23/17) Macrolides (Verified Allergy, Unknown, ALLERGIC TO "MYCINS", 01/23/17) Penicillins (Verified Allergy, Unknown, HIVES, 01/23/17) HIVES IN THROAT Sulfa Drugs (Verified Allergy, Unknown, HIVES, 01/23/17) HIVES IN THROAT Lisinopril (Verified Adverse Reaction, Unknown, cough, 01/23/17) Home Medications Scheduled Aspirin (Aspirin Chewable), 81 MG PO QAM Atorvastatin (Lipitor), 40 MG PO HS Cetirizine Hcl (Zyrtec), 10 MG PO HS Ferrous Sulfate (Ferrous Sulfate), 1 TAB PO DAILY Fluoxetine Hcl (Prozac), 20 MG PO HS Metoprolol Tartrate (Lopressor) (Lopressor), 25 MG PO BID Multivitamin (Multivitamin), 1 TAB PO HS Nitroglycerin (Nitrostat), 0.4 MG UT PRN Pantoprazole (Protonix), 40 MG PO BID Scheduled PRN Loperamide Hcl (Imodium), 2 MG PO for Diarrhea Ondansetron Hcl (Zofran), 4 MG PO Q6H PRN for Nausea Temazepam (Restoril), 7.5 MG PO HS PRN for Sleep Review of Systems ROS per HPI, all other systems reviewed and negative Physical Exam Vital Signs Date Time Temp Pulse Resp B/P (MAP) Pulse Ox O2 Delivery O2 Flow Rate FiO2 02/27/17 15:19 36.4 92 18 100/68 (79) 92 Room Air 02/27/17 12:30 Room Air 02/27/17 12:30 36.5 70 18 113/78 (90) 96 Room Air 02/27/17 12:30 36.5 70 18 113/78 Room Air General Appearance: no apparent distress Head: normocephalic, atraumatic Eyes: normal inspection, sclerae normal ENT: hearing grossly normal Neck: supple, no JVD Respiratory/Chest: no respiratory distress, + crackles (BL bases) Cardiovascular: regular rate, rhythm, no edema, normal peripheral pulses Abdomen/GI: soft, + tenderness (mild, generalized), + abnormal bowel sounds ( hypoactive) Extremities/Musculoskelatal: normal inspection, no calf tenderness Neurologic/Psych: no motor/sensory deficits, alert, normal mood/affect, oriented x 3 Skin: normal color, warm/dry Diagnostics Laboratory Results Results Past 24 Hours Test 02/27/17 12:47 02/27/17 12:57 Range/Units White Blood Count 8.06 4.8-10.8 K/uL Red Blood Count 5.02 4.2-5.4 M/uL Hemoglobin 14.8 12.0-16.0 g/dL Hematocrit 43.9 37-47 % Mean Corpuscular Volume 87.5 80-100 fL Mean Corpuscular Hemoglobin 29.5 25-34 pg Mean Corpuscular Hemoglobin Concent 33.7 32-36 g/dl Platelet Count 342 130-400 K/uL Mean Platelet Volume 9.2 7.4-10.4 fL Neutrophils (%) (Auto) 65.7 % Lymphocytes (%) (Auto) 23.2 % Monocytes (%) (Auto) 9.4 % Eosinophils (%) (Auto) 0.6 % Basophils (%) (Auto) 0.5 % Neutrophils # (Auto) 5.29 1.4-6.5 K/uL Lymphocytes # (Auto) 1.87 1.2-3.4 K/uL Monocytes # (Auto) 0.76 0.11-0.59 K/uL Eosinophils # (Auto) 0.05 0-0.5 K/uL Basophils # (Auto) 0.04 0-0.2 K/uL RDW Standard Deviation 45.5 36.4-46.3 fL RDW Coefficient of Variation 14.2 11.5-14.5 % Immature Granulocyte % (Auto) 0.6 % Immature Granulocyte # (Auto) 0.05 0.00-0.02 K/uL Prothrombin Time 11.3 9.0-12.0 SECONDS Prothromb Time International Ratio 1.1 0.9-1.1 Sodium Level 138 136-145 mmol/L Potassium Level 3.3 3.5-5.1 mmol/L Chloride Level 102 98-107 mmol/L Carbon Dioxide Level 24 21-32 mmol/L Anion Gap 12.0 3-11 mmol/L Blood Urea Nitrogen 13 7-18 mg/dl Creatinine 0.88 0.60-1.20 mg/dl Est Creatinine Clear Calc Drug Dose 47.3 ml/min Estimated GFR () 74.5 Estimated GFR (Non- 64.3 BUN/Creatinine Ratio 14.4 10-20 Random Glucose 89 70-99 mg/dl Calcium Level 9.1 8.5-10.1 mg/dl Phosphorus Level 3.7 2.5-4.9 mg/dl Magnesium Level 1.8 1.8-2.4 mg/dl Total Bilirubin 0.4 0.2-1 mg/dl Aspartate Amino Transf (AST/SGOT) 18 15-37 U/L Alanine Aminotransferase (ALT/SGPT) 31 12-78 U/L Alkaline Phosphatase 106 45-117 U/L Total Protein 7.3 6.4-8.2 gm/dl Albumin 2.8 3.4-5.0 gm/dl Globulin 4.5 2.5-4.0 gm/dl Albumin/Globulin Ratio 0.6 0.9-2 Lipase 48 73-393 U/L Microbiology Results 02/27/17 C.difficile Toxin B Gene (PCR), Received Pending 02/27/17 Shiga Toxin Test, Received Pending 02/27/17 Stool Culture, Received Pending 02/27/17 Urine Culture, Received Pending Diagnostic Radiology ABD XR IMPRESSION: No evidence for bowel obstruction. Prior cholecystectomy. CXR IMPRESSION: Bibasilar subsegmental atelectatic change. No evidence of free intraperitoneal air. Impression Assessment and Plan INTRACTABLE NAUSEA, VOMITING, DIARRHEA - directly admitted to med/surg from Dr. Jackman's office - patient s/p paraesophageal hernia repair 01/08/27 @ [facility] and lap cholecystectomy 01/24/17 @ [facility] for acute cholecystitis - patient has been doing well until one week ago when she developed persistent nausea, vomiting, and diarrhea - labs unremarkable; abd XR negative for free air or obstruction; will check CT abd - NPO for now, may advance to clears after CT abd - check stool studies - supportive care with IVF, antiemetics, IV H2 sumit - noted EGD 01/08/17 unremarkable - consider GI consult if no improvement HYPOKALEMIA - mild, will replace - likely due to GI loss ATELECTASIS - incentive spirometer CAD - stable, no reports of chest pain - check EKG - continue ASA, beta sumit, and statin DEPRESSION - continue fluoxetine DVT PROPHYLAXIS - SQ Heparin DISPO - In my clinical judgment this beneficiary meets acute admission criteria, established by [facility], that includes being hospitalized through two midnights. ADDENDUM: Saw/examined the patient in room 385 She was recently here due to a lap moses for acute cholecystitis was sent home with antibiotics came back here due to a one week history of vomiting and diarrhea; sent by Dr. Jackman, general surgery testing reveals she is positive for C. diff vancomycin PO 125mg QID started KUB shows no obstruction CXR negative UA is pending replete K and give IVFs abdominal CT pending surgery consulted for further input, though with C. diff being positive, can likely treat medically Advanced Directives Existing Living Will: Yes (at attorneys office) Existing Power of [employer] Planner: Yes (at attorneys office) VTE Prophylaxis VTE Risk Assessment Done? Y/N: Yes Risk Level: Moderate
[2017-02-27] MEDS: POTASSIUM CHLR 10 MEQ / WTR 10 MEQ in PREMIXED WATER 100 ML IV SCH ×4 (16:06→19:30)
[2017-02-27] MEDS: RANITIDINE IV 50 MG in DEXTROSE 5% 100ML 100 ML IV SCH (16:31)
[2017-02-27] MEDS ORDERED: VANCOMYCIN HCL 125 MG/2.5ML SOLN PO SCH (17:00)
[2017-02-27] MEDS: RASPBERRY SYRUP 5 ML UDP PO SCH ×2 (17:23→21:43)
[2017-02-27] MEDS: VANCOMYCIN HCL 125 MG/2.5ML SOLN PO SCH ×2 (17:24→21:43)
[2017-02-27] MEDS ORDERED: NURSING VERBAL MED ORDER ONE ×2 (18:45)
--- NOTE | 2017-02-27 20:59 | DIAGNOSTIC IMAGING REPORT ---
ABD/PELVIS IV CONTRAST ONLY CLINICAL HISTORY: 76 years-old Female presenting with abdominal pain, vomiting. TECHNIQUE: Multidetector CT of the abdomen and pelvis was performed after the administration of intravenous contrast. IV contrast: 94 mL of Optiray 320. A dose lowering technique was used consistent with the principles of ALARA (as low as reasonably achievable). COMPARISON: 01/23/2017. CT DOSE (mGy.cm): The estimated cumulative dose is 603.33 mGycm. 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 Lung bases: Bandlike opacities at the lung bases. Normal heart size. Coronary artery calcification. No pericardial or pleural effusion. Liver: Normal morphology. No liver lesion. Patent hepatic vasculature. Biliary: Mild intrahepatic and extra hepatic biliary ductal dilatation, likely a reservoir effect in the post cholecystectomy state. Gallbladder surgically absent. Pancreas: Mild parenchymal atrophy. Spleen: Normal. Adrenal glands: Normal. Kidneys and ureters: No nephrolithiasis. Multiple left parapelvic cysts. No hydronephrosis. Ureters normal. Bladder: Incompletely evaluated secondary to underdistention. Pelvic organs: Uterus and ovaries normal. Bowel: Postsurgical changes of right colectomy. Sigmoid diverticulosis with wall thickening likely indicating chronic diverticular disease. Additionally, more diffuse colonic wall thickening noted from the right mid abdomen ileocolic anastomosis through the rectum. No bowel obstruction. Colonic wall thickening is new from prior outside of the sigmoid colon. Peritoneal cavity: No free fluid or intraperitoneal gas. Vasculature: Atherosclerosis of the normal caliber abdominal aorta. IVC patent. Lymph nodes: Few prominent upper abdominal lymph nodes in the portacaval and peripancreatic region, likely reactive to recent cholecystectomy. Abdominal wall: Small fat-containing of the hernia. Musculoskeletal: Degenerative changes of the spine. IMPRESSION: 1. Post surgical changes of cholecystectomy. 2. Interval development of diffuse colonic wall thickening, which could suggest colitis, likely infectious. 3. Chronic diverticular disease of the sigmoid colon. No convincing evidence of acute diverticulitis. 4. Redemonstration of postsurgical changes of right colectomy with patent ileocolic anastomosis. 5. Bibasilar atelectasis. Electronically signed by: Rei Moreland M.D. 02/27/2017 8:58 PM Dictated Date/Time: 02/27/2017 8:48 PM
[2017-02-27] MEDS: CETIRIZINE HCL 10 MG TAB PO SCH (21:00)
[2017-02-27] MEDS: HEPARIN SOD 5000 UNIT/0.5 ML CARP SQ SCH (21:23)
[2017-02-27] MEDS: ATORVASTATIN 40 MG TAB PO SCH (21:27)
[2017-02-27] MEDS: MULTIVITAMIN TAB PO SCH (21:28)
[2017-02-27] MEDS: FLUOXETINE HCL 20 MG CAP PO SCH (21:29)
[2017-02-27] MEDS: METOPROLOL TARTRATE 25 MG TAB PO SCH (21:29)
[2017-02-27 23:15] VITALS: BP 95/45; PULSE 77; TEMP 36.6; O2SAT 92
[2017-02-28 00:19] LABS: URINE APPEARANCE CLEAR (CLEAR); URINE BILIRUBIN NEG (NEG); URINE COLOR YELLOW; URINE NITRITE NEG (NEG); URINE SPECIFIC GRAVITY > 1.045 (1.000-1.030); UROBILINOGEN NEG (NEG)
[2017-02-28 00:20] LABS: MANUAL MICROSCOPIC REQUIRED? NO; REVIEW REQ? NO
[2017-02-28] MEDS: D5NSS + 20MEQ KCL 1,000 ML IV SCH ×3 (00:24→20:48)
[2017-02-28] MEDS: RANITIDINE IV 50 MG in DEXTROSE 5% 100ML 100 ML IV SCH ×4 (00:24→23:47)
[2017-02-28 06:27] LABS: MEAN CORPUSCULAR HEMOGLOBIN 29.2 pg (25-34); MEAN CORPUSCULAR HGB CONC 33.9 g/dl (32-36); PLATELET COUNT 318 K/uL (130-400); RED BLOOD COUNT 4.42 M/uL (4.2-5.4); WHITE BLOOD COUNT 7.29 K/uL (4.8-10.8)
[2017-02-28 07:03] LABS: BUN/CREATININE RATIO 10.5 (10-20); CREATININE 0.79 mg/dl (0.60-1.20); MAGNESIUM 1.6 mg/dl (1.8-2.4); POTASSIUM 3.8 mmol/L (3.5-5.1)
[2017-02-28 07:14] VITALS: BP 116/67; PULSE 79; TEMP 36.3; O2SAT 95
[2017-02-28] MEDS: VANCOMYCIN HCL 125 MG/2.5ML SOLN PO SCH ×4 (08:47→20:48)
[2017-02-28] MEDS: RASPBERRY SYRUP 5 ML UDP PO SCH ×4 (08:47→20:48)
[2017-02-28] MEDS: ASPIRIN 81 MG ECTAB PO SCH (08:48)
[2017-02-28] MEDS: FERROUS SULFATE 325 MG TAB PO SCH (08:48)
[2017-02-28] MEDS: METOPROLOL TARTRATE 25 MG TAB PO SCH ×2 (08:48→20:47)
[2017-02-28] MEDS: HEPARIN SOD 5000 UNIT/0.5 ML CARP SQ SCH ×2 (08:50→20:44)
--- NOTE | 2017-02-28 10:21 | Clinical Documentation Query ---
Dr. TRIANA [facility] : CLINICAL DOCUMENTATION QUERY Not my Patient Patient is a 76 year old female admitted for evaluation and treatment of persistent N/V/D s/p paraesophageal hernia repair 01/08 and laparoscopic cholecystectomy 01/24. EMR demonstrated microbiological findings including a positive assay for C. difficile toxin B. Patient was ordered Vancomycin PO and placed on handwashing precautions. As appropriate, consider documentation as suggested below as this solidifies DRG assignment with a precise medical diagnosis as opposed to a symptom list (N/V/D) In your clinical opinion is this patient being managed for: ( ) Clostridium difficile enterocolitis and/or (possible/suspected) postcholecystectomy syndrome ( ) Other explanation of clinical findings (Please Explain) ( ) Unable to determine (Please Define) ( ) Need to Discuss ( ) Not Agree The medical record reflects the following clinical findings, treatment, and risk factors. Clinical Indicators: As above Treatment: Oral vancomycin, surgical consultation, IVF, radiology, possible GI consultation. Risk Factors: Age, recent hospitalizations, likely recent antibiotics, s/p cholecystectomy Please clarify and document your clinical opinion in the progress notes and discharge summary. Terms such as "probable", "suspected", "likely", "questionable", "possible", or "still to be ruled out" are acceptable. IF IN AGREEMENT, YOU MUST DOCUMENT ABOVE DIAGNOSTIC STATEMENT IN DAILY PROGRESS NOTES AND DISCHARGE SUMMARY. This document is not part of the patient's record. Thank You, Huang Paiz, RN [phone]
[2017-02-28] MEDS ORDERED: MAGNESIUM SULFATE 1GM / D5W 1 GM in PREMIXED IN D5W 100 ML IV STA (14:53)
[2017-02-28 15:00] VITALS: BP 94/61; PULSE 67; TEMP 36.4; O2SAT 95
--- NOTE | 2017-02-28 15:07 | Progress Note ---
Subjective Date of Service: Feb 28, 2017. Subjective Pt evaluation today including: conversation w/ patient, physical exam, lab review, review of studies, review of inpatient medication list Saw/examined the patient in room 385 She's doing okay, states that her nausea/vomiting has resolved continues to have diarrhea, though slightly slowing Problem List Medical Problems: (1) Cholecystitis Status: Acute (2) Pneumonia Status: Acute (3) Right upper quadrant abdominal pain Status: Acute Review of Systems Constitutional: No fever, No chills Respiratory: No cough, No sputum, No shortness of breath Cardiac: No chest pain Abdomen: + diarrhea, No pain, No nausea, No vomiting, No constipation, No GI bleeding Heme: No abnormal bleeding/bruising Medications Current Inpatient Medications Medications (Trade) Dose Ordered Sig/Tra Route Start Time Stop Time Status Last Admin Dose Admin Acetaminophen (Tylenol Tab) 650 mg Q4H PRN PO 02/27/17 13:00 03/29/17 12:59 Ondansetron HCl (Zofran Inj) 4 mg Q6H PRN IV 02/27/17 13:00 03/29/17 12:59 Heparin Sodium (Porcine) (Heparin Sq 5000 Unit/0.5ml) 5,000 unit Q12 SQ 02/27/17 21:00 03/29/17 20:59 02/28/17 08:50 5,000 UNIT Promethazine HCl 12.5 mg/Sodium Chloride 50.5 ml @ 204 mls/hr Q6H PRN IV 02/27/17 13:15 03/29/17 13:14 02/27/17 15:24 204 MLS/HR Potassium Chloride/Dextrose/ Sod Cl 1,000 ml @ 100 mls/hr Q10H IV 02/27/17 15:00 03/29/17 14:59 02/28/17 08:48 100 MLS/HR Ranitidine HCl 50 mg/Dextrose 102 ml @ 200 mls/hr Q8H IV 02/27/17 16:00 03/29/17 15:59 02/28/17 08:47 200 MLS/HR Ioversol (Optiray 320) 100 ml UD PRN IV 02/27/17 14:30 03/03/17 14:29 Aspirin (Ecotrin Tab) 81 mg QAM PO 02/28/17 09:00 03/30/17 08:59 8/18/17 08:48 81 MG Atorvastatin Calcium (Lipitor Tab) 40 mg HS PO 02/27/17 21:00 03/29/17 20:59 02/27/17 21:27 40 MG Cetirizine HCl (zyrTEC TAB) 10 mg HS PO 02/27/17 21:00 03/29/17 20:59 Ferrous Sulfate (Feosol Tab) 325 mg DAILY PO 02/28/17 09:00 03/30/17 08:59 02/28/17 08:48 325 MG Fluoxetine HCl (Prozac Cap) 20 mg HS PO 02/27/17 21:00 03/29/17 20:59 02/27/17 21:29 20 MG Metoprolol Tartrate (Lopressor Tab) 25 mg BID PO 02/27/17 21:00 03/29/17 20:59 02/28/17 08:48 25 MG Multivitamins (Multivitamin Tab) 1 tab HS PO 02/27/17 21:00 03/29/17 20:59 02/27/17 21:28 1 TAB Temazepam (Restoril Cap) 7.5 mg HS PRN PO 02/27/17 14:30 03/29/17 14:29 Vancomycin HCl (Vancomycin Oral Soln) 125 mg QID PO 02/27/17 17:00 03/13/17 16:59 02/28/17 12:39 125 MG Raspberry (Raspberry Syrup 5ml Cup) 5 ml QID PO 02/27/17 17:00 03/13/17 16:59 02/28/17 12:39 5 ML Magnesium Sulfate 1 gm/Prmx 100 ml @ 100 mls/hr NOW STAT IV 02/28/17 14:53 02/28/17 15:52 Objective Vital Signs Date Time Temp Pulse Resp B/P (MAP) Pulse Ox O2 Delivery O2 Flow Rate FiO2 02/28/17 08:15 Room Air 02/28/17 07:14 36.3 79 18 116/67 (83) 95 Room Air 02/27/17 23:56 Room Air 02/27/17 23:15 36.6 77 16 95/45 (62) 92 Room Air 02/27/17 15:30 Room Air 02/27/17 15:19 36.4 92 18 100/68 (79) 92 Room Air Physical Exam General Appearance: no apparent distress Respiratory/Chest: chest non-tender, lungs clear, normal breath sounds, no respiratory distress, no accessory muscle use Cardiovascular: regular rate, rhythm, no edema, no murmur Abdomen: non tender, soft, + abnormal bowel sounds (hyperactive) Neurologic/Psychiatric: no motor/sensory deficits, alert, normal mood/affect Laboratory Results Last 24 Hours Test 02/28/17 00:00 02/28/17 06:08 Urine Color YELLOW Urine Appearance CLEAR Urine pH 5.0 Urine Specific [place] > 1.045 Urine Protein NEG Urine Glucose (UA) NEG Urine Ketones 2+ Urine Occult Blood NEG Urine Nitrite NEG Urine Bilirubin NEG Urine Urobilinogen NEG Urine Leukocyte Esterase NEG White Blood Count 7.29 K/uL Red Blood Count 4.42 M/uL Hemoglobin 12.9 g/dL Hematocrit 38.0 % Mean Corpuscular Volume 86.0 fL Mean Corpuscular Hemoglobin 29.2 pg Mean Corpuscular Hemoglobin Concent 33.9 g/dl RDW Standard Deviation 45.3 fL RDW Coefficient of Variation 14.3 % Platelet Count 318 K/uL Mean Platelet Volume 9.0 fL Sodium Level 139 mmol/L Potassium Level 3.8 mmol/L Chloride Level 108 mmol/L Carbon Dioxide Level 25 mmol/L Anion Gap 6.0 mmol/L Blood Urea Nitrogen 8 mg/dl Creatinine 0.79 mg/dl Est Creatinine Clear Calc Drug Dose 52.7 ml/min Estimated GFR () 84.9 Estimated GFR (Non- 73.2 BUN/Creatinine Ratio 10.5 Random Glucose 116 mg/dl Calcium Level 8.0 mg/dl Magnesium Level 1.6 mg/dl Assessment and Plan C. diff Colitis patient was positive for C. diff CT shows colitis, likely from the c. diff infection started on vancomycin 125 PO QID will continue for 2 weeks total advance diet to clear liquid diet Electrolyte Abnormalities hypokalemia on admission, resolved hypomagnesemia - replete, and recheck both in AM Atelectasis recent surgery, incentive spirometer CAD stable, no reports of chest pain check EKG continue ASA, beta sumit, and statin Depression continue home medications DVT ppx SCDs likely d/c home in 1-2 days after advancing diet
--- NOTE | 2017-02-28 17:26 | Surgery Progress Note ---
Surgery Progress Note Date of Service Feb 28, 2017. Subjective C diff positive with evidence of colitis on CT on clear liquid diet Objective Vital Signs: Date Time Temp Pulse Resp B/P (MAP) Pulse Ox O2 Delivery O2 Flow Rate FiO2 02/28/17 15:00 36.4 67 16 94/61 (72) 95 Room Air 02/28/17 08:15 Room Air 02/28/17 07:14 36.3 79 18 116/67 (83) 95 Room Air 02/27/17 23:56 Room Air 02/27/17 23:15 36.6 77 16 95/45 (62) 92 Room Air Laboratory Results: Results Past 24 Hours Test 02/28/17 00:00 02/28/17 06:08 Range/Units Urine Color YELLOW Urine Appearance CLEAR CLEAR Urine pH 5.0 4.5-7.5 Urine Specific [place] > 1.045 1.000-1.030 Urine Protein NEG NEG Urine Glucose (UA) NEG NEG Urine Ketones 2+ NEG Urine Occult Blood NEG NEG Urine Nitrite NEG NEG Urine Bilirubin NEG NEG Urine Urobilinogen NEG NEG Urine Leukocyte Esterase NEG NEG White Blood Count 7.29 4.8-10.8 K/uL Red Blood Count 4.42 4.2-5.4 M/uL Hemoglobin 12.9 12.0-16.0 g/dL Hematocrit 38.0 37-47 % Mean Corpuscular Volume 86.0 80-100 fL Mean Corpuscular Hemoglobin 29.2 25-34 pg Mean Corpuscular Hemoglobin Concent 33.9 32-36 g/dl RDW Standard Deviation 45.3 36.4-46.3 fL RDW Coefficient of Variation 14.3 11.5-14.5 % Platelet Count 318 130-400 K/uL Mean Platelet Volume 9.0 7.4-10.4 fL Sodium Level 139 136-145 mmol/L Potassium Level 3.8 3.5-5.1 mmol/L Chloride Level 108 98-107 mmol/L Carbon Dioxide Level 25 21-32 mmol/L Anion Gap 6.0 3-11 mmol/L Blood Urea Nitrogen 8 7-18 mg/dl Creatinine 0.79 0.60-1.20 mg/dl Est Creatinine Clear Calc Drug Dose 52.7 ml/min Estimated GFR () 84.9 Estimated GFR (Non- 73.2 BUN/Creatinine Ratio 10.5 10-20 Random Glucose 116 70-99 mg/dl Calcium Level 8.0 8.5-10.1 mg/dl Magnesium Level 1.6 1.8-2.4 mg/dl Assessment & Plan 02/28/17- treating c diff with po Vanco- supportive care advance diet as tolerated. cont to follow- may consider GI follow up.
[2017-02-28] MEDS: FLUOXETINE HCL 20 MG CAP PO SCH (20:48)
[2017-02-28] MEDS: ATORVASTATIN 40 MG TAB PO SCH (20:48)
[2017-02-28] MEDS: CETIRIZINE HCL 10 MG TAB PO SCH (20:48)
[2017-02-28] MEDS: MULTIVITAMIN TAB PO SCH (20:48)
[2017-02-28 23:00] VITALS: BP 109/71; PULSE 68; TEMP 36.6; O2SAT 95
[2017-03-01 06:06] LABS: HEMATOCRIT 36.5 % (37-47); MEAN CELL VOLUME 86.7 fL (80-100); MEAN CORPUSCULAR HGB CONC 33.4 g/dl (32-36); MEAN PLATELET VOLUME 9.1 fL (7.4-10.4); PLATELET COUNT 307 K/uL (130-400); RED BLOOD COUNT 4.21 M/uL (4.2-5.4); WHITE BLOOD COUNT 6.18 K/uL (4.8-10.8)
--- NOTE | 2017-03-01 06:21 | Surgery Progress Note ---
Surgery Progress Note Date of Service Mar 01, 2017. Subjective doing better- less abd pain- still some diarrhea Objective Vital Signs: Date Time Temp Pulse Resp B/P (MAP) Pulse Ox O2 Delivery O2 Flow Rate FiO2 02/28/17 23:50 Room Air 02/28/17 23:00 36.6 68 16 109/71 (84) 95 Room Air 02/28/17 15:30 Room Air 02/28/17 15:00 36.4 67 16 94/61 (72) 95 Room Air 02/28/17 08:15 Room Air 02/28/17 07:14 36.3 79 18 116/67 (83) 95 Room Air General Appearance: no apparent distress Respiratory/Chest: no respiratory distress Abdomen: soft Laboratory Results: Results Past 24 Hours Test 03/01/17 05:40 Range/Units White Blood Count 6.18 4.8-10.8 K/uL Red Blood Count 4.21 4.2-5.4 M/uL Hemoglobin 12.2 12.0-16.0 g/dL Hematocrit 36.5 37-47 % Mean Corpuscular Volume 86.7 80-100 fL Mean Corpuscular Hemoglobin 29.0 25-34 pg Mean Corpuscular Hemoglobin Concent 33.4 32-36 g/dl RDW Standard Deviation 45.8 36.4-46.3 fL RDW Coefficient of Variation 14.4 11.5-14.5 % Platelet Count 307 130-400 K/uL Mean Platelet Volume 9.1 7.4-10.4 fL Assessment & Plan 03/01/17- Cont po Vanco. Diet as tolerated- IV fluids overall making progress. C diff in her age group can be a serious problem. 02/28/17- treating c diff with po Vanco- supportive care advance diet as tolerated. cont to follow- may consider GI follow up. 02/28/17- treating c diff with po Vanco- supportive care advance diet as tolerated. cont to follow- may consider GI follow up.
[2017-03-01] MEDS: D5NSS + 20MEQ KCL 1,000 ML IV SCH (06:28)
[2017-03-01 06:38] LABS: BUN/CREATININE RATIO 4.5 (10-20); CALCIUM 7.6 mg/dl (8.5-10.1); CREATININE 0.73 mg/dl (0.60-1.20); MAGNESIUM 1.9 mg/dl (1.8-2.4); POTASSIUM 3.5 mmol/L (3.5-5.1)
[2017-03-01 08:06] VITALS: BP 115/75; PULSE 73; TEMP 36.4; O2SAT 95
[2017-03-01] MEDS ORDERED: POTASSIUM CHLR 10 MEQ / WTR 10 MEQ in PREMIXED WATER 100 ML IV ONE (08:15)
[2017-03-01] MEDS: HEPARIN SOD 5000 UNIT/0.5 ML CARP SQ SCH ×2 (08:26→21:14)
[2017-03-01] MEDS: RASPBERRY SYRUP 5 ML UDP PO SCH ×4 (08:37→21:10)
[2017-03-01] MEDS: VANCOMYCIN HCL 125 MG/2.5ML SOLN PO SCH ×4 (08:38→21:10)
[2017-03-01] MEDS: FERROUS SULFATE 325 MG TAB PO SCH (08:38)
[2017-03-01] MEDS: METOPROLOL TARTRATE 25 MG TAB PO SCH ×2 (08:38→21:10)
[2017-03-01] MEDS: ASPIRIN 81 MG ECTAB PO SCH (08:38)
[2017-03-01] MEDS: SODIUM CHLORIDE 0.9% 1000ML 1,000 ML IV SCH (12:00)
--- NOTE | 2017-03-01 15:27 | Progress Note ---
Subjective Date of Service: Mar 01, 2017. Subjective Pt evaluation today including: conversation w/ patient, physical exam, lab review, review of studies, review of inpatient medication list Saw/examined the patient in room 385 continues to have numerous episodes of watery diarrhea no fevers/chills nausea/vomiting improving diet advanced to full liquids Problem List Medical Problems: (1) Cholecystitis Status: Acute (2) Pneumonia Status: Acute (3) Right upper quadrant abdominal pain Status: Acute Review of Systems Constitutional: No fever, No chills Respiratory: No shortness of breath Cardiac: No chest pain Abdomen: + diarrhea, No pain, No nausea, No vomiting, No constipation, No GI bleeding Heme: No abnormal bleeding/bruising Medications Current Inpatient Medications Medications (Trade) Dose Ordered Sig/Tra Route Start Time Stop Time Status Last Admin Dose Admin Acetaminophen (Tylenol Tab) 650 mg Q4H PRN PO 02/27/17 13:00 03/29/17 12:59 Ondansetron HCl (Zofran Inj) 4 mg Q6H PRN IV 02/27/17 13:00 03/29/17 12:59 Heparin Sodium (Porcine) (Heparin Sq 5000 Unit/0.5ml) 5,000 unit Q12 SQ 02/27/17 21:00 03/29/17 20:59 03/01/17 08:26 5,000 UNIT Promethazine HCl 12.5 mg/Sodium Chloride 50.5 ml @ 204 mls/hr Q6H PRN IV 02/27/17 13:15 03/29/17 13:14 02/27/17 15:24 204 MLS/HR Ioversol (Optiray 320) 100 ml UD PRN IV 02/27/17 14:30 03/03/17 14:29 Aspirin (Ecotrin Tab) 81 mg QAM PO 02/28/17 09:00 03/30/17 08:59 03/01/17 08:38 81 MG Atorvastatin Calcium (Lipitor Tab) 40 mg HS PO 02/27/17 21:00 03/29/17 20:59 02/28/17 20:48 40 MG Cetirizine HCl (zyrTEC TAB) 10 mg HS PO 02/27/17 21:00 03/29/17 20:59 02/28/17 20:48 10 MG Ferrous Sulfate (Feosol Tab) 325 mg DAILY PO 02/28/17 09:00 03/30/17 08:59 03/01/17 08:38 325 MG Fluoxetine HCl (Prozac Cap) 20 mg HS PO 02/27/17 21:00 03/29/17 20:59 02/28/17 20:48 20 MG Metoprolol Tartrate (Lopressor Tab) 25 mg BID PO 02/27/17 21:00 03/29/17 20:59 03/01/17 08:38 25 MG Multivitamins (Multivitamin Tab) 1 tab HS PO 02/27/17 21:00 03/29/17 20:59 02/28/17 20:48 1 TAB Temazepam (Restoril Cap) 7.5 mg HS PRN PO 02/27/17 14:30 03/29/17 14:29 Vancomycin HCl (Vancomycin Oral Soln) 125 mg QID PO 02/27/17 17:00 03/13/17 16:59 03/01/17 13:56 125 MG Raspberry (Raspberry Syrup 5ml Cup) 5 ml QID PO 02/27/17 17:00 03/13/17 16:59 03/01/17 13:56 5 ML Sodium Chloride 1,000 ml @ 80 mls/hr [id number] IV 03/01/17 12:00 03/31/17 11:59 03/01/17 12:00 80 MLS/HR Objective Vital Signs Date Time Temp Pulse Resp B/P (MAP) Pulse Ox O2 Delivery O2 Flow Rate FiO2 03/01/17 08:06 36.4 73 18 115/75 (88) 95 Room Air 02/28/17 23:50 Room Air 02/28/17 23:00 36.6 68 16 109/71 (84) 95 Room Air 02/28/17 15:30 Room Air Physical Exam General Appearance: no apparent distress Abdomen: non tender, soft, + abnormal bowel sounds Laboratory Results Last 24 Hours Test 03/01/17 05:40 White Blood Count 6.18 K/uL Red Blood Count 4.21 M/uL Hemoglobin 12.2 g/dL Hematocrit 36.5 % Mean Corpuscular Volume 86.7 fL Mean Corpuscular Hemoglobin 29.0 pg Mean Corpuscular Hemoglobin Concent 33.4 g/dl RDW Standard Deviation 45.8 fL RDW Coefficient of Variation 14.4 % Platelet Count 307 K/uL Mean Platelet Volume 9.1 fL Sodium Level 144 mmol/L Potassium Level 3.5 mmol/L Chloride Level 116 mmol/L Carbon Dioxide Level 22 mmol/L Anion Gap 6.0 mmol/L Blood Urea Nitrogen 3 mg/dl Creatinine 0.73 mg/dl Est Creatinine Clear Calc Drug Dose 57.0 ml/min Estimated GFR () 93.4 Estimated GFR (Non- 80.6 BUN/Creatinine Ratio 4.5 Random Glucose 108 mg/dl Calcium Level 7.6 mg/dl Magnesium Level 1.9 mg/dl Assessment and Plan C. diff Colitis 03/01 continue Vancomycin 125mg QID IVFs replace electrolytes diet advanced to full liquid, continue this for today possible d/c home in 1-2 days if diarrhea improves 02/28 patient was positive for C. diff CT shows colitis, likely from the c. diff infection started on vancomycin 125 PO QID will continue for 2 weeks total advance diet to clear liquid diet Electrolyte Abnormalities hypokalemia on admission, resolved hypomagnesemia - replete, and recheck both in AM Atelectasis recent surgery, incentive spirometer CAD stable, no reports of chest pain check EKG continue ASA, beta sumit, and statin Depression continue home medications DVT ppx SCDs likely d/c home in 1-2 days after advancing diet
[2017-03-01] MEDS: MULTIVITAMIN TAB PO SCH (21:10)
[2017-03-01] MEDS: CETIRIZINE HCL 10 MG TAB PO SCH (21:10)
[2017-03-01] MEDS: FLUOXETINE HCL 20 MG CAP PO SCH (21:10)
[2017-03-01] MEDS: ATORVASTATIN 40 MG TAB PO SCH (21:10)
[2017-03-01 22:55] VITALS: BP 128/77; PULSE 69; TEMP 36.5; O2SAT 95
[2017-03-02] MEDS: SODIUM CHLORIDE 0.9% 1000ML 1,000 ML IV SCH ×2 (01:44→12:22)
[2017-03-02 06:16] LABS: BUN/CREATININE RATIO 2.4 (10-20); CALCIUM 7.8 mg/dl (8.5-10.1); CREATININE 0.79 mg/dl (0.60-1.20); MAGNESIUM 1.6 mg/dl (1.8-2.4); POTASSIUM 3.5 mmol/L (3.5-5.1)
[2017-03-02] MEDS ORDERED: MAGNESIUM SULFATE 1GM / D5W 1 GM in PREMIXED IN D5W 100 ML IV ONE (07:30)
[2017-03-02 07:37] VITALS: BP 124/79; PULSE 69; TEMP 36.4; O2SAT 95
[2017-03-02] MEDS: HEPARIN SOD 5000 UNIT/0.5 ML CARP SQ SCH ×2 (08:50→20:59)
[2017-03-02] MEDS: ASPIRIN 81 MG ECTAB PO SCH (08:51)
[2017-03-02] MEDS: METOPROLOL TARTRATE 25 MG TAB PO SCH ×2 (08:51→21:01)
[2017-03-02] MEDS: FERROUS SULFATE 325 MG TAB PO SCH (08:51)
[2017-03-02] MEDS: RASPBERRY SYRUP 5 ML UDP PO SCH ×4 (08:52→21:01)
[2017-03-02] MEDS: VANCOMYCIN HCL 125 MG/2.5ML SOLN PO SCH ×4 (08:59→21:01)
--- NOTE | 2017-03-02 11:03 | Progress Note ---
Subjective Date of Service: Mar 02, 2017. Subjective Pt evaluation today including: conversation w/ patient, physical exam, lab review, review of studies, review of inpatient medication list Saw/examined the patient in room 385 +diarrhea persists patient wants to go back to clear broth no fevers/chills in good spirits Problem List Medical Problems: (1) Cholecystitis Status: Acute (2) Pneumonia Status: Acute (3) Right upper quadrant abdominal pain Status: Acute Review of Systems Constitutional: No fever, No chills Respiratory: No shortness of breath Cardiac: No chest pain Abdomen: + diarrhea, No pain, No nausea, No vomiting, No constipation, No GI bleeding Medications Current Inpatient Medications Medications (Trade) Dose Ordered Sig/Tra Route Start Time Stop Time Status Last Admin Dose Admin Acetaminophen (Tylenol Tab) 650 mg Q4H PRN PO 02/27/17 13:00 03/29/17 12:59 Ondansetron HCl (Zofran Inj) 4 mg Q6H PRN IV 02/27/17 13:00 03/29/17 12:59 Heparin Sodium (Porcine) (Heparin Sq 5000 Unit/0.5ml) 5,000 unit Q12 SQ 02/27/17 21:00 03/29/17 20:59 03/02/17 08:50 5,000 UNIT Promethazine HCl 12.5 mg/Sodium Chloride 50.5 ml @ 204 mls/hr Q6H PRN IV 02/27/17 13:15 03/29/17 13:14 02/27/17 15:24 204 MLS/HR Ioversol (Optiray 320) 100 ml UD PRN IV 02/27/17 14:30 03/03/17 14:29 Aspirin (Ecotrin Tab) 81 mg QAM PO 02/28/17 09:00 03/30/17 08:59 03/02/17 08:51 81 MG Atorvastatin Calcium (Lipitor Tab) 40 mg HS PO 02/27/17 21:00 03/29/17 20:59 03/01/17 21:10 40 MG Cetirizine HCl (zyrTEC TAB) 10 mg HS PO 02/27/17 21:00 03/29/17 20:59 03/01/17 21:10 10 MG Ferrous Sulfate (Feosol Tab) 325 mg DAILY PO 02/28/17 09:00 03/30/17 08:59 03/02/17 08:51 325 MG Fluoxetine HCl (Prozac Cap) 20 mg HS PO 02/27/17 21:00 03/29/17 20:59 03/01/17 21:10 20 MG Metoprolol Tartrate (Lopressor Tab) 25 mg BID PO 02/27/17 21:00 03/29/17 20:59 03/02/17 08:51 25 MG Multivitamins (Multivitamin Tab) 1 tab HS PO 02/27/17 21:00 03/29/17 20:59 03/01/17 21:10 1 TAB Temazepam (Restoril Cap) 7.5 mg HS PRN PO 02/27/17 14:30 03/29/17 14:29 Vancomycin HCl (Vancomycin Oral Soln) 125 mg QID PO 02/27/17 17:00 03/13/17 16:59 03/02/17 08:59 125 MG Raspberry (Raspberry Syrup 5ml Cup) 5 ml QID PO 02/27/17 17:00 03/13/17 16:59 03/02/17 08:52 5 ML Sodium Chloride 1,000 ml @ 80 mls/hr [id number] IV 03/01/17 12:00 03/31/17 11:59 03/02/17 01:44 80 MLS/HR Objective Vital Signs Date Time Temp Pulse Resp B/P (MAP) Pulse Ox O2 Delivery O2 Flow Rate FiO2 03/02/17 07:37 36.4 69 16 124/79 (94) 95 Room Air 03/02/17 07:35 Room Air 03/01/17 23:45 Room Air 03/01/17 22:55 36.5 69 16 128/77 (94) 95 Room Air 03/01/17 16:25 Room Air Physical Exam General Appearance: no apparent distress Respiratory/Chest: no respiratory distress, no accessory muscle use Abdomen: non tender, soft, + abnormal bowel sounds (hyperactive bowel sounds) Laboratory Results Last 24 Hours Test 03/02/17 05:14 Sodium Level 143 mmol/L Potassium Level 3.5 mmol/L Chloride Level 115 mmol/L Carbon Dioxide Level 21 mmol/L Anion Gap 7.0 mmol/L Blood Urea Nitrogen 2 mg/dl Creatinine 0.79 mg/dl Est Creatinine Clear Calc Drug Dose 52.7 ml/min Estimated GFR () 84.9 Estimated GFR (Non- 73.2 BUN/Creatinine Ratio 2.4 Random Glucose 84 mg/dl Calcium Level 7.8 mg/dl Magnesium Level 1.6 mg/dl Assessment and Plan C. diff Colitis 03/02 continue Vanco for a total of 2 weeks clear liquid diet for now replace Mg, check electrolytes in AM di/c home in 1-2 days 03/01 continue Vancomycin 125mg QID IVFs replace electrolytes diet advanced to full liquid, continue this for today possible d/c home in 1-2 days if diarrhea improves 02/28 patient was positive for C. diff CT shows colitis, likely from the c. diff infection started on vancomycin 125 PO QID will continue for 2 weeks total advance diet to clear liquid diet Electrolyte Abnormalities hypokalemia on admission, resolved hypomagnesemia - replete, and recheck both in AM Atelectasis recent surgery, incentive spirometer CAD stable, no reports of chest pain check EKG continue ASA, beta sumit, and statin Depression continue home medications DVT ppx SCDs likely d/c home in 1-2 days after advancing diet
[2017-03-02 15:00] VITALS: BP 124/78; PULSE 61; TEMP 36.6; O2SAT 96
[2017-03-02 20:56] VITALS: BP 136/76; PULSE 83
[2017-03-02] MEDS: FLUOXETINE HCL 20 MG CAP PO SCH (21:01)
[2017-03-02] MEDS: CETIRIZINE HCL 10 MG TAB PO SCH (21:01)
[2017-03-02] MEDS: ATORVASTATIN 40 MG TAB PO SCH (21:01)
[2017-03-02] MEDS: MULTIVITAMIN TAB PO SCH (21:01)
[2017-03-02 22:55] VITALS: BP 127/83; PULSE 69; TEMP 36.7; O2SAT 96
[2017-03-03] MEDS: SODIUM CHLORIDE 0.9% 1000ML 1,000 ML IV SCH ×2 (00:19→13:34)
[2017-03-03 06:47] LABS: BUN/CREATININE RATIO 2.8 (10-20); CALCIUM 7.6 mg/dl (8.5-10.1); CREATININE 0.65 mg/dl (0.60-1.20); MAGNESIUM 1.6 mg/dl (1.8-2.4); POTASSIUM 2.9 mmol/L (3.5-5.1)
--- NOTE | 2017-03-03 06:58 | Surgery Progress Note ---
Surgery Progress Note Date of Service Mar 03, 2017. Subjective less diarrhea, vitals stable Objective Vital Signs: Date Time Temp Pulse Resp B/P (MAP) Pulse Ox O2 Delivery O2 Flow Rate FiO2 03/02/17 23:45 Room Air 03/02/17 22:55 36.7 69 16 127/83 (98) 96 Room Air 03/02/17 20:56 83 136/76 (96) 03/02/17 15:50 Room Air 03/02/17 15:00 36.6 61 18 124/78 (93) 96 Room Air 03/02/17 07:37 36.4 69 16 124/79 (94) 95 Room Air 03/02/17 07:35 Room Air Laboratory Results: Results Past 24 Hours Test 03/03/17 05:43 Range/Units Sodium Level 145 136-145 mmol/L Potassium Level 2.9 3.5-5.1 mmol/L Chloride Level 113 98-107 mmol/L Carbon Dioxide Level 22 21-32 mmol/L Anion Gap 10.0 3-11 mmol/L Blood Urea Nitrogen 2 7-18 mg/dl Creatinine 0.65 0.60-1.20 mg/dl Est Creatinine Clear Calc Drug Dose 64.1 ml/min Estimated GFR () 100.7 Estimated GFR (Non- 86.8 BUN/Creatinine Ratio 2.8 10-20 Random Glucose 76 70-99 mg/dl Calcium Level 7.6 8.5-10.1 mg/dl Magnesium Level 1.6 1.8-2.4 mg/dl Assessment & Plan 03/03/17- improving- pt will need close f/u with GI- she has seen Dr Esparza in the past- should be seen w/n 1-2 weeks of discharge- can see [employer] BUSINESS [employer]OP[employer]/PA 03/01/17- Cont po Vanco. Diet as tolerated- IV fluids overall making progress. C diff in her age group can be a serious problem. 02/28/17- treating c diff with po Vanco- supportive care advance diet as tolerated. cont to follow- may consider GI follow up. 03/01/17- Cont po Vanco. Diet as tolerated- IV fluids overall making progress. C diff in her age group can be a serious problem. 02/28/17- treating c diff with po Vanco- supportive care advance diet as tolerated. cont to follow- may consider GI follow up.
[2017-03-03 07:08] VITALS: BP 143/83; PULSE 70; TEMP 36.7; O2SAT 94
[2017-03-03] MEDS: HEPARIN SOD 5000 UNIT/0.5 ML CARP SQ SCH ×2 (09:21→20:50)
[2017-03-03] MEDS: FERROUS SULFATE 325 MG TAB PO SCH (09:22)
[2017-03-03] MEDS: ASPIRIN 81 MG ECTAB PO SCH (09:22)
[2017-03-03] MEDS: METOPROLOL TARTRATE 25 MG TAB PO SCH ×2 (09:23→20:47)
[2017-03-03] MEDS: RASPBERRY SYRUP 5 ML UDP PO SCH ×4 (09:35→20:46)
[2017-03-03] MEDS: VANCOMYCIN HCL 125 MG/2.5ML SOLN PO SCH ×4 (09:36→20:46)
[2017-03-03] MEDS ORDERED: POTASSIUM CHLORIDE 10 MEQ TABCR PO ONE (14:00)
[2017-03-03] MEDS: MAGNESIUM SULFATE 1GM / D5W 1 GM in PREMIXED IN D5W 100 ML IV SCH ×2 (14:22→15:31)
[2017-03-03 15:11] VITALS: BP 121/75; PULSE 71; TEMP 36.4; O2SAT 94
--- NOTE | 2017-03-03 16:16 | Progress Note ---
Subjective Date of Service: Mar 03, 2017. Subjective Pt evaluation today including: conversation w/ patient, physical exam, lab review, review of studies, review of inpatient medication list Saw/examined the patient in room 385 She is still having +diarrhea; diet advanced to full Denies fevers/chills Problem List Medical Problems: (1) Cholecystitis Status: Acute (2) Pneumonia Status: Acute (3) Right upper quadrant abdominal pain Status: Acute Review of Systems Constitutional: No fever, No chills Respiratory: No shortness of breath Cardiac: No chest pain Abdomen: + diarrhea, No pain, No nausea, No vomiting, No constipation Heme: No abnormal bleeding/bruising Medications Current Inpatient Medications Medications (Trade) Dose Ordered Sig/Tra Route Start Time Stop Time Status Last Admin Dose Admin Acetaminophen (Tylenol Tab) 650 mg Q4H PRN PO 02/27/17 13:00 03/29/17 12:59 Ondansetron HCl (Zofran Inj) 4 mg Q6H PRN IV 02/27/17 13:00 03/29/17 12:59 Heparin Sodium (Porcine) (Heparin Sq 5000 Unit/0.5ml) 5,000 unit Q12 SQ 02/27/17 21:00 03/29/17 20:59 03/03/17 09:21 5,000 UNIT Promethazine HCl 12.5 mg/Sodium Chloride 50.5 ml @ 204 mls/hr Q6H PRN IV 02/27/17 13:15 03/29/17 13:14 02/27/17 15:24 204 MLS/HR Aspirin (Ecotrin Tab) 81 mg QAM PO 02/28/17 09:00 03/30/17 08:59 03/03/17 09:22 81 MG Atorvastatin Calcium (Lipitor Tab) 40 mg HS PO 02/27/17 21:00 03/29/17 20:59 03/02/17 21:01 40 MG Cetirizine HCl (zyrTEC TAB) 10 mg HS PO 02/27/17 21:00 03/29/17 20:59 03/02/17 21:01 10 MG Ferrous Sulfate (Feosol Tab) 325 mg DAILY PO 02/28/17 09:00 03/30/17 08:59 03/03/17 09:22 325 MG Fluoxetine HCl (Prozac Cap) 20 mg HS PO 02/27/17 21:00 03/29/17 20:59 03/02/17 21:01 20 MG Metoprolol Tartrate (Lopressor Tab) 25 mg BID PO 02/27/17 21:00 03/29/17 20:59 03/03/17 09:23 25 MG Multivitamins (Multivitamin Tab) 1 tab HS PO 02/27/17 21:00 03/29/17 20:59 03/02/17 21:01 1 TAB Temazepam (Restoril Cap) 7.5 mg HS PRN PO 02/27/17 14:30 03/29/17 14:29 Vancomycin HCl (Vancomycin Oral Soln) 125 mg QID PO 02/27/17 17:00 03/13/17 16:59 03/03/17 13:32 125 MG Raspberry (Raspberry Syrup 5ml Cup) 5 ml QID PO 02/27/17 17:00 03/13/17 16:59 03/03/17 13:31 5 ML Sodium Chloride 1,000 ml @ 80 mls/hr [id number] IV 03/01/17 12:00 03/31/17 11:59 03/03/17 13:34 80 MLS/HR Potassium Chloride (Klor-Con Pwd) 20 meq BID PO 03/03/17 21:00 04/02/17 20:59 Objective Vital Signs Date Time Temp Pulse Resp B/P (MAP) Pulse Ox O2 Delivery O2 Flow Rate FiO2 03/03/17 15:11 36.4 71 18 121/75 (90) 94 Room Air 03/03/17 08:20 Room Air 03/03/17 07:08 36.7 70 16 143/83 (103) 94 Room Air 03/02/17 23:45 Room Air 03/02/17 22:55 36.7 69 16 127/83 (98) 96 Room Air 03/02/17 20:56 83 136/76 (96) Physical Exam General Appearance: no apparent distress Respiratory/Chest: no respiratory distress, no accessory muscle use Abdomen: + abnormal bowel sounds (hyperactive bowel sounds) Laboratory Results Last 24 Hours Test 03/03/17 05:43 Sodium Level 145 mmol/L Potassium Level 2.9 mmol/L Chloride Level 113 mmol/L Carbon Dioxide Level 22 mmol/L Anion Gap 10.0 mmol/L Blood Urea Nitrogen 2 mg/dl Creatinine 0.65 mg/dl Est Creatinine Clear Calc Drug Dose 64.1 ml/min Estimated GFR () 100.7 Estimated GFR (Non- 86.8 BUN/Creatinine Ratio 2.8 Random Glucose 76 mg/dl Calcium Level 7.6 mg/dl Magnesium Level 1.6 mg/dl Assessment and Plan C. diff Colitis 03/03 continue oral Vancomycin replace Mg and K if electrolytes stable, can be d/c home in AM 03/02 continue Vanco for a total of 2 weeks clear liquid diet for now replace Mg, check electrolytes in AM di/c home in 1-2 days 03/01 continue Vancomycin 125mg QID IVFs replace electrolytes diet advanced to full liquid, continue this for today possible d/c home in 1-2 days if diarrhea improves 02/28 patient was positive for C. diff CT shows colitis, likely from the c. diff infection started on vancomycin 125 PO QID will continue for 2 weeks total advance diet to clear liquid diet Electrolyte Abnormalities hypokalemia on admission, resolved hypomagnesemia - replete, and recheck both in AM Atelectasis recent surgery, incentive spirometer CAD stable, no reports of chest pain check EKG continue ASA, beta sumit, and statin Depression continue home medications DVT ppx SCDs likely d/c home in 1-2 days after advancing diet
[2017-03-03] MEDS: POTASSIUM CHLORIDE PWD 20 MEQ PACK PO SCH (20:47)
[2017-03-03] MEDS: MULTIVITAMIN TAB PO SCH (20:48)
[2017-03-03] MEDS: CETIRIZINE HCL 10 MG TAB PO SCH (20:49)
[2017-03-03] MEDS: FLUOXETINE HCL 20 MG CAP PO SCH (20:49)
[2017-03-03] MEDS: ATORVASTATIN 40 MG TAB PO SCH (20:50)
[2017-03-03 23:45] VITALS: BP 127/80; PULSE 67; TEMP 36.6; O2SAT 95
[2017-03-04] MEDS: SODIUM CHLORIDE 0.9% 1000ML 1,000 ML IV SCH ×2 (02:02→12:36)
[2017-03-04 06:07] LABS: HEMATOCRIT 35.9 % (37-47); MEAN CELL VOLUME 85.9 fL (80-100); MEAN CORPUSCULAR HEMOGLOBIN 29.2 pg (25-34); MEAN PLATELET VOLUME 8.9 fL (7.4-10.4); PLATELET COUNT 300 K/uL (130-400); RED BLOOD COUNT 4.18 M/uL (4.2-5.4); WHITE BLOOD COUNT 6.49 K/uL (4.8-10.8)
[2017-03-04 06:48] LABS: BUN/CREATININE RATIO 3.3 (10-20); CALCIUM 7.7 mg/dl (8.5-10.1); CREATININE 0.73 mg/dl (0.60-1.20); MAGNESIUM 1.9 mg/dl (1.8-2.4); POTASSIUM 3.6 mmol/L (3.5-5.1)
[2017-03-04 06:56] VITALS: BP 129/78; PULSE 63; TEMP 36.2; O2SAT 95
[2017-03-04 08:40] VITALS: O2SAT 96
[2017-03-04] MEDS: FERROUS SULFATE 325 MG TAB PO SCH (09:06)
[2017-03-04] MEDS: POTASSIUM CHLORIDE PWD 20 MEQ PACK PO SCH (09:06)
[2017-03-04] MEDS: ASPIRIN 81 MG ECTAB PO SCH (09:06)
[2017-03-04] MEDS: METOPROLOL TARTRATE 25 MG TAB PO SCH (09:06)
[2017-03-04] MEDS: RASPBERRY SYRUP 5 ML UDP PO SCH ×2 (09:07→12:36)
[2017-03-04] MEDS: HEPARIN SOD 5000 UNIT/0.5 ML CARP SQ SCH (09:10)
[2017-03-04] MEDS: VANCOMYCIN HCL 125 MG/2.5ML SOLN PO SCH ×2 (09:13→12:36)
--- NOTE | 2017-03-04 14:16 | Progress Note ---
Subjective Date of Service: Mar 04, 2017. Subjective Pt evaluation today including: conversation w/ patient, physical exam, lab review, review of studies, review of inpatient medication list Saw/examined the patient in room 385 She's doing well, diarrhea persists, but she is able to tolerate regular diet Problem List Medical Problems: (1) Cholecystitis Status: Acute (2) Pneumonia Status: Acute (3) Right upper quadrant abdominal pain Status: Acute Review of Systems Constitutional: No fever, No chills Respiratory: No shortness of breath Cardiac: No chest pain Abdomen: + diarrhea, No pain, No nausea, No vomiting Medications Current Inpatient Medications Medications (Trade) Dose Ordered Sig/Tra Route Start Time Stop Time Status Last Admin Dose Admin Acetaminophen (Tylenol Tab) 650 mg Q4H PRN PO 02/27/17 13:00 03/29/17 12:59 Ondansetron HCl (Zofran Inj) 4 mg Q6H PRN IV 02/27/17 13:00 03/29/17 12:59 Heparin Sodium (Porcine) (Heparin Sq 5000 Unit/0.5ml) 5,000 unit Q12 SQ 02/27/17 21:00 03/29/17 20:59 03/04/17 09:10 5,000 UNIT Promethazine HCl 12.5 mg/Sodium Chloride 50.5 ml @ 204 mls/hr Q6H PRN IV 02/27/17 13:15 03/29/17 13:14 02/27/17 15:24 204 MLS/HR Aspirin (Ecotrin Tab) 81 mg QAM PO 02/28/17 09:00 03/30/17 08:59 03/04/17 09:06 81 MG Atorvastatin Calcium (Lipitor Tab) 40 mg HS PO 02/27/17 21:00 03/29/17 20:59 03/03/17 20:50 40 MG Cetirizine HCl (zyrTEC TAB) 10 mg HS PO 02/27/17 21:00 03/29/17 20:59 03/03/17 20:49 10 MG Ferrous Sulfate (Feosol Tab) 325 mg DAILY PO 02/28/17 09:00 03/30/17 08:59 03/04/17 09:06 325 MG Fluoxetine HCl (Prozac Cap) 20 mg HS PO 02/27/17 21:00 03/29/17 20:59 03/03/17 20:49 20 MG Metoprolol Tartrate (Lopressor Tab) 25 mg BID PO 02/27/17 21:00 03/29/17 20:59 03/04/17 09:06 25 MG Multivitamins (Multivitamin Tab) 1 tab HS PO 02/27/17 21:00 03/29/17 20:59 03/03/17 20:48 1 TAB Temazepam (Restoril Cap) 7.5 mg HS PRN PO 02/27/17 14:30 03/29/17 14:29 Vancomycin HCl (Vancomycin Oral Soln) 125 mg QID PO 02/27/17 17:00 03/13/17 16:59 03/04/17 12:36 125 MG Raspberry (Raspberry Syrup 5ml Cup) 5 ml QID PO 02/27/17 17:00 03/13/17 16:59 03/04/17 12:36 5 ML Sodium Chloride 1,000 ml @ 80 mls/hr [id number] IV 03/01/17 12:00 03/31/17 11:59 03/04/17 12:36 80 MLS/HR Potassium Chloride (Klor-Con Pwd) 20 meq BID PO 03/03/17 21:00 04/02/17 20:59 03/04/17 09:06 20 MEQ Objective Vital Signs Date Time Temp Pulse Resp B/P (MAP) Pulse Ox O2 Delivery O2 Flow Rate FiO2 03/04/17 08:40 96 Room Air 03/04/17 08:23 Room Air 03/04/17 06:56 36.2 63 16 129/78 (95) 95 Room Air 03/03/17 23:45 36.6 67 16 127/80 (96) 95 Room Air 03/03/17 23:45 Room Air 03/03/17 17:12 Room Air 03/03/17 15:11 36.4 71 18 121/75 (90) 94 Room Air Physical Exam General Appearance: no apparent distress Respiratory/Chest: chest non-tender, lungs clear, normal breath sounds, no respiratory distress, no accessory muscle use Abdomen: + abnormal bowel sounds (hyperactive bowel sounds) Extremities: normal inspection, no pedal edema Laboratory Results Last 24 Hours Test 03/04/17 05:47 White Blood Count 6.49 K/uL Red Blood Count 4.18 M/uL Hemoglobin 12.2 g/dL Hematocrit 35.9 % Mean Corpuscular Volume 85.9 fL Mean Corpuscular Hemoglobin 29.2 pg Mean Corpuscular Hemoglobin Concent 34.0 g/dl RDW Standard Deviation 45.2 fL RDW Coefficient of Variation 14.5 % Platelet Count 300 K/uL Mean Platelet Volume 8.9 fL Sodium Level 145 mmol/L Potassium Level 3.6 mmol/L Chloride Level 116 mmol/L Carbon Dioxide Level 22 mmol/L Anion Gap 7.0 mmol/L Blood Urea Nitrogen 2 mg/dl Creatinine 0.73 mg/dl Est Creatinine Clear Calc Drug Dose 57.0 ml/min Estimated GFR () 93.4 Estimated GFR (Non- 80.6 BUN/Creatinine Ratio 3.3 Random Glucose 93 mg/dl Calcium Level 7.7 mg/dl Magnesium Level 1.9 mg/dl Assessment and Plan C. diff Colitis 03/04 oral Vanco total of 2 weeks Mg and K = normal can d/c with Vanco, d/c with oral potassium, follow-up with primary care physician in one week 03/03 continue oral Vancomycin replace Mg and K if electrolytes stable, can be d/c home in AM 03/02 continue Vanco for a total of 2 weeks clear liquid diet for now replace Mg, check electrolytes in AM di/c home in 1-2 days 03/01 continue Vancomycin 125mg QID IVFs replace electrolytes diet advanced to full liquid, continue this for today possible d/c home in 1-2 days if diarrhea improves 02/28 patient was positive for C. diff CT shows colitis, likely from the c. diff infection started on vancomycin 125 PO QID will continue for 2 weeks total advance diet to clear liquid diet Electrolyte Abnormalities hypokalemia on admission, resolved hypomagnesemia - replete, and recheck both in AM Atelectasis recent surgery, incentive spirometer CAD stable, no reports of chest pain check EKG continue ASA, beta sumit, and statin Depression continue home medications DVT ppx SCDs likely d/c home in 1-2 days after advancing diet
[2017-03-04] MEDS ORDERED: VNCS125 PO (14:22)
[2017-03-04] MEDS ORDERED: KCLP20 PO (14:22)
[2017-03-04] MEDS ORDERED: RSPS5 PO (14:22)
--- NOTE | 2017-03-04 14:28 | Discharge Instructions ---
Discharge Instructions Date of Service Mar 04, 2017. Admission Reason for Admission: Persistent Vomiting Discharge Discharge Diagnosis / Problem: C. diff colitis Discharge Goals Goal(s): Decrease discomfort, Improve function, Diagnostic testing, Therapeutic intervention Activity Recommendations Activity Limitations: resume your previous activity . Instructions / Follow-Up Instructions / Follow-Up Please follow-up with Dr. Sheridan on March 10 at 1:00PM * You will be on vancomycin 125mg four times daily for the next 9 days (36 more doses) * Do not take Imodium or antidiarrhea medications * Take potassium tablets while you are having diarrhea * primary care should recheck blood work (basic metabolic profile) Current Hospital Diet Patient's current hospital diet: Regular Diet Discharge Diet Recommended Diet: Regular Diet Pending Studies Studies pending at discharge: no Medical Emergencies . Who to Call and When: Medical Emergencies: If at any time you feel your situation is an emergency, please call 911 immediately. . Non-Emergent Contact Non-Emergency issues call your: Primary Care Provider . . "Provider Documentation" section prepared by Yovanny Nix. . VTE Core Measure Inpt VTE Proph given/why not?: Unfractionated heparin SQ
--- NOTE | 2017-03-04 14:33 | Discharge Summary ---
Discharge Summary Date of Service Mar 04, 2017. Discharge Summary Admission Date: Feb 27, 2017 at 12:18 Discharge Date: Mar 04, 2017 Discharge Disposition: Home Principal Diagnosis: C. diff colitis Medication Reconciliation New Medications: Potassium Chloride (Klor-Con) 20 Meq Pow 20 MEQ PO BID for 10 Days, #20 PKT Raspberry (Raspberry Syrup) 5 Ml/Cup Syrp 5 ML PO QID for 9 Days, #180 ML Vancomycin HCl (Vancomycin HCl) 125 Mg/2.5 Ml Susp 125 MG PO QID for 9 Days, #90 ML Continued Medications: Aspirin (Aspirin Chewable) 81 Mg Chew 81 MG PO QAM, TAB Atorvastatin (Lipitor) 40 Mg Tab 40 MG PO HS, TAB Cetirizine Hcl (Zyrtec) 10 Mg Tab 10 MG PO HS, TAB Ferrous Sulfate (Ferrous Sulfate) 325 Mg Tab 1 TAB PO DAILY Fluoxetine Hcl (Prozac) 20 Mg Cap 20 MG PO HS, CAP Loperamide Hcl (Imodium) 2 Mg Cap 2 MG PO PRN for Diarrhea, CAP Metoprolol Tartrate (Lopressor) (Lopressor) 25 Mg Tab 25 MG PO BID, TAB Multivitamin (Multivitamin) Tab 1 TAB PO HS, TAB Nitroglycerin (Nitrostat) 0.4 Mg Sub 0.4 MG UT PRN, BTL Ondansetron Hcl (Zofran) 4 Mg Tab 4 MG PO Q6H PRN for Nausea, TAB Pantoprazole (Protonix) 40 Mg Tab 40 MG PO BID, #60 TAB 1 Refill Temazepam (Restoril) 15 Mg Cap 7.5 MG PO HS PRN for Sleep, CAP Admission Information HPI (per Admitting provider): 76 year old female who was referred for direct admission by Dr. Jackman for dehydration, persistent nausea, vomiting, and diarrhea. Patient underwent paraesophageal hernia repair at [facility] 01/08. She then presented to [facility] 01/24 with RUQ pain and found to have acute cholecystitis and underwent lap moses on 01/24. [facility] She reports she had been doing well until about one week ago. She has developed persistent nausea, vomiting, and diarrhea. She reports she is unable to keep anything down, including her medications. She reports any times she tries to eat, she will develop crampy lower abdominal pain and diarrhea or vomiting. She reports multiple episodes per day. Diarrhea is mucousy, non bloody. She denies hematemesis or coffee ground emesis. She denies fever and chills. She reports feeling lightheaded and dizzy but denies any syncopal events. No chest pain or shortness of breath. She denies any urinary symptoms. At the time of my exam, patient is resting in bed in no acute distress. Physical Exam (per Admitting): General Appearance: no apparent distress Head: normocephalic, atraumatic Eyes: normal inspection, sclerae normal ENT: hearing grossly normal Neck: supple, no JVD Respiratory/Chest: no respiratory distress, + crackles (BL bases) Cardiovascular: regular rate, rhythm, no edema, normal peripheral pulses Abdomen/GI: soft, + tenderness (mild, generalized), + abnormal bowel sounds (hypoactive) Extremities/Musculoskelatal: normal inspection, no calf tenderness Neurologic/Psych: no motor/sensory deficits, alert, normal mood/affect, oriented x 3 Skin: normal color, warm/dry Hospital Course C. diff Colitis 03/04 oral Vanco total of 2 weeks Mg and K = normal can d/c with Vanco, d/c with oral potassium, follow-up with primary care physician in one week 03/03 continue oral Vancomycin replace Mg and K if electrolytes stable, can be d/c home in AM 03/02 continue Vanco for a total of 2 weeks clear liquid diet for now replace Mg, check electrolytes in AM di/c home in 1-2 days 03/01 continue Vancomycin 125mg QID IVFs replace electrolytes diet advanced to full liquid, continue this for today possible d/c home in 1-2 days if diarrhea improves 02/28 patient was positive for C. diff CT shows colitis, likely from the c. diff infection started on vancomycin 125 PO QID will continue for 2 weeks total advance diet to clear liquid diet Electrolyte Abnormalities hypokalemia on admission, resolved hypomagnesemia - replete, and recheck both in AM Atelectasis recent surgery, incentive spirometer CAD stable, no reports of chest pain check EKG continue ASA, beta sumit, and statin Depression continue home medications DVT ppx subq heparin Total time spent on discharge = 40 minutes This includes examination of the patient, discharge planning, medication reconciliation, and communication with other providers. Discharge Instructions Please follow-up with Dr. Sheridan on March 10 at 1:00PM * You will be on vancomycin 125mg four times daily for the next 9 days (36 more doses) * Do not take Imodium or antidiarrhea medications * Take potassium tablets while you are having diarrhea * primary care should recheck blood work (basic metabolic profile)
[2017-03-04 15:16] VITALS: BP 136/87; PULSE 66; TEMP 36.7; O2SAT 96
[2017-03-04 15:58] VITALS: BP 136/87; PULSE 66; TEMP 36.7; O2SAT 96
== END 2017-03-04 16:30 | disposition home or self-care (01) | DRG 372 ==
LOC: UNDOADMIN 12:18 → C.MSN 12:18
PROVIDERS: ADMIT Internal Medicine; ATTEND Family Medicine
DX: A04.7 Enterocolitis due to Clostridium difficile (principal); J98.11 Atelectasis; E86.0 Dehydration; Z85.038 Personal history of other malignant neoplasm of large intestine; Z90.721 Acquired absence of ovaries, unilateral; Z87.891 Personal history of nicotine dependence; Z88.2 Allergy status to sulfonamides; E87.6 Hypokalemia; I25.10 Atherosclerotic heart disease of native coronary artery without angina pectoris; F32.9 Major depressive disorder, single episode, unspecified; E83.42 Hypomagnesemia

== ENCOUNTER 2020-11-12 10:12 | Observation (INO) ==
--- NOTE | 2020-11-12 10:28 | Emergency Department Note ---
Impression & Plan Diverticulitis, Abdominal pain, Hypokalemia ED Provider Note NAME: KYLE SHERIFF AGE: 80 SEX: F : 1940 ARRIVES VIA: Walk-In INFORMANT: Patient, ED PROVIDER(S): Sterling Rivero MD Chief Complaint: Abdominal pain HPI: Patient does present with concern for abdominal pain, nausea vomiting and diarrhea. Patient did have a recent diagnosis of diverticulitis on Friday and started on antibiotic therapy. Patient did have a CAT scan completed and was started on Cipro and Flagyl. Patient has a white count of 11.7 with a hemoglobin 11.5 platelet count of 525 on November 08. Patient's kidney function w as fairly unremarkable with a very mild variation anion gap and bicarb. Patient's pain is primarily left-sided. Patient does complain of some mild rib discomfort as well. Patient denies any recent falls or history kidney stones. Patient is a decreased urine output and p.o. intake. Patient has been stooling but in smaller amounts. The patient's pain is sharp and worse with palpation. Patient is not take anything for pain at home. The patient states she is been compliant with her medications. The patient does have history of following with gastroenterology with Dr. Esparza. The patient has had prior colon resection, cholecystectomy, and hiatal hernia repair. The patient states that these were done in the remote past several years ago. Patient denies any fevers or chills. The patient states that the pain has been fairly constant since Friday. Patient denies any recent alcohol use. The patient does not use tobacco or drugs. ROS: See HPI for pertinent positives and negatives. A total of 10 systems were reviewed and otherwise negative. Past medical history: See below Surgical history: See below Social history: See below Physical Exam: GENERAL: Comfortable in appearance, wearing a mask. EYE EXAM: Normal conjunctiva. PERRL, no anisocoria and EOM's grossly intact w/o pain. [OROPHARYNX: Moist mucus membranes. Grossly normal dentition. [No exudate, posterior pharynx is clear, no tonsillar/uvular deviation or swelling. No cervical adenopathy, no submental, submandibular, or sublingual swelling.]] NECK: Supple, no nuchal rigidity, no adenopathy, non-tender. No signs of meningismus. [FROM of the neck with good chin to chest and neck extension. No stridor.] LUNGS: Clear to auscultation. Normal chest wall mechanics. HEART: NSR, no MRG. Chest: No reproducible chest wall pain ABDOMEN: Abdomen soft, left-sided abdominal pain, no right-sided abdominal pain or suprapubic discomfort, normo-active bowel sounds, no masses, no rebound or guarding. BACK: No CVA TTP. SKIN: No rashes and no bruising. UPPER EXTREMITIES: Upper extremities are grossly normal. LOWER EXTREMITIES: Grossly normal, no edema. NEURO EXAM: A&O x3, cranial nerves II-XII grossly intact, normal speech, moves all 4 extremities on command w/o issue. Differential diagnoses: Appendicitis, ovarian cyst, ovarian torsion, ectopic , TOA, PID, infections, diverticulitis, UTI, obstruction, mesenteric ischemia, aortic pathology, inflammatory bowel disease, renal colic, PUD, pancreatitis, biliary pathology, hernia, volvulus, constipation, as well as other pathologies. Course: Patient was seen and evaluated the bedside. Full history physical exam was performed. EKG: Indication: Abdominal pain Normal sinus rhythm, rate of 79, normal interval levels, normal axis, nonspecific ST abnormality. Imaging Studies: See below Cardiac monitoring: An order was placed for continuous cardiac monitoring. The monitor shows a rate of 84 with sinus rhythm. MDM: Patient was seen due to concern for abdominal pain. Blood work is obtained along with an EKG and troponin given the patient's prior history of drug-eluting stents. Patient did have plain films completed to rule out perfect the patient did have a repeat CT abdomen pelvis completed. The patient was treated symptomatically with IV fluids antiemetics and pain medication. Patient's blood work fairly reassuring. White count is normal. Patient's kidney function unremarkable with very mild hypokalemia. The patient CT shows stable mild diverticulitis but without perforation or abscess. X-rays do not show any concerning findings only nonobstructive bowel gas pattern. Upon reassessment the patient was still having some pain so was given additional pain medication. Upon subsequent reassessment the patient was concerned about going home given her diverticulitis. Urinalysis does not show obvious evidence of infection. Urine culture was added. Believe ciprofloxacin would cover UTI at this time. It has been the on-call hospitalist after reassessing the patient. Patient is concerned about pain control. I did speak with Dr. Rosa Ndiaye. Patient was admitted to the medicine service. 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" Surgical History H/O dilation and curettage History of oophorectomy, unilateral Hx of tubal ligation S/P anal fissurectomy S/P cholecystectomy S/P repair of paraesophageal hernia Social History Smoking Status: Former smoker Preferred Language: Ug[place]an Feels Safe at Home: Yes Allergies Allergies Allergy/AdvReac Type Severity Reaction Status Date / Time hydrocodone Allergy Unknown UNKNOWN Verified 11/08/20 15:55 Macrolide Antibiotics Allergy Unknown ALLERGIC Verified 11/08/20 15:55 TO "MYCINS" Penicillins Allergy Unknown HIVES Verified 11/08/20 15:55 Sulfa (Sulfonamide Allergy Unknown HIVES Verified 11/08/20 15:55 Antibiotics) lisinopril AdvReac Unknown cough Verified 11/08/20 15:55 Home Meds Home Medications Medication Instructions Recorded Confirmed aspirin [Aspirin Low Dose] 81 mg PO DAILY 11/08/20 11/12/20 fluocinolone and shower cap 1 ea TOPICAL UD 11/08/20 11/12/20 fluoxetine 20 mg PO DAILY 11/08/20 11/12/20 metoprolol tartrate 25 mg PO BID 11/08/20 11/12/20 multivitamin [Multiple Vitamins] 1 tab PO DAILY 11/08/20 11/12/20 nitroglycerin 0.4 mg SUBLINGUAL UD PRN 11/08/20 11/12/20 pantoprazole 40 mg PO DAILY 11/08/20 11/12/20 temazepam 7.5 mg PO HS 11/08/20 11/12/20 Previous Rx's Medication Instructions Recorded ciprofloxacin HCl 500 mg PO BID #14 tab 11/08/20 metronidazole [Flagyl] 500 mg PO Q8H 7 Days #21 tab 11/08/20 Results & Data (ED) Vital Signs Vital Signs - 24 hr 11/12/20 10:26 Temperature 36.4 C L Temperature Source Temporal Artery Scan Pulse Rate 84 Respiratory Rate 19 Respiratory Depth Normal Blood Pressure 111/80 Blood Pressure Mean 90 Blood Pressure Position Sitting Pulse Oximetry 97 Oxygen Delivery Method Room Air Sepsis Recent Fever Within 48 Hours No Sepsis New/Unexplained Change in Mental Status No Sepsis Action Taken by Nursing No Action Required Home Medications Current Medication List: was personally reviewed by me Laboratory Data Attestation: I reviewed the patient's lab results. Result diagrams: 11/12/20 11:17 11/12/20 11:17 Lab Results 11/12/20 11/12/20 11/12/20 Range/Units 11:17 11:17 13:50 WBC 8.62 (4.8-10.8) K/uL RBC 4.75 (4.2-5.4) M/uL Hgb 11.9 L (12.0-16.0) g/dL Hct 37.0 (37-47) % MCV 77.9 L (80-100) fL MCH 25.1 (25-34) pg MCHC 32.2 (32-36) g/dL RDW Std Deviation 48.2 H (36.4-46.3) fL RDW Coeff of Jamar 16.9 H (11.5-14.5) % Plt Count 637 H (130-400) K/uL MPV 8.6 (7.4-10.4) fL Immature Gran % (Auto) 0.2 % Neut % (Auto) 78.5 % Lymph % (Auto) 11.6 % [place] % (Auto) 7.7 % Eos % (Auto) 1.9 % Baso % (Auto) 0.1 % Neut # (Auto) 6.77 H (1.4-6.5) K/uL Lymph # (Auto) 1.00 L (1.2-3.4) K/uL [place] # (Auto) 0.66 H (0.11-0.59) K/uL Eos # (Auto) 0.16 (0-0.5) K/uL Baso # (Auto) 0.01 (0-0.2) K/uL Immature Gran # (Auto) 0.02 (0.00-0.02) K/uL Sodium 140 (136-145) mmol/L Potassium 3.4 L (3.5-5.1) mmol/L Chloride 105 (98-107) mmol/L Carbon Dioxide 27 (21-32) mmol/L Anion Gap 8.0 (3-11) BUN 13 (7-18) mg/dl Creatinine 0.73 (0.6-1.2) mg/dl Est Cr Clr Drug Dosing Not Reportable Est GFR ( Amer) 90.8 Est GFR (Non-Af Amer) 78.3 BUN/Creatinine Ratio 17.7 (10-20) Glucose 118 H (70-99) mg/dl Calcium 8.7 (8.5-10.1) mg/dl Total Bilirubin 0.3 (0.2-1) mg/dl AST 6 L (15-37) U/L ALT 13 (12-78) U/L Alkaline Phosphatase 79 (45-117) U/L Troponin I < 0.015 (0-0.045) ng/ml Total Protein 8.0 (6.4-8.2) gm/dl Albumin 2.7 L (3.4-5.0) gm/dl Globulin 5.3 H (2.5-4.0) gm/dl Albumin/Globulin Ratio 0.5 L (0.9-2) Lipase 84 (73-393) U/L Urine Color Dark Yellow Urine Appearance Clear (Clear) Urine pH 5.0 (4.5-7.5) Ur Specific [place] >= 1.045 H (1.000-1.030) Urine Protein Trace H (Negative) Urine Glucose (UA) Negative (Negative) Urine Ketones 2+ H (Negative) Urine Blood Negative (Negative) Urine Nitrite Positive A (Negative) Urine Bilirubin Negative (Negative) Urine Urobilinogen Negative (Negative) Ur Leukocyte Esterase Trace H (Negative) Urine WBC (Auto) 1-5 (0-5) /hpf Urine RBC (Auto) 0-4 (0-4) /hpf U Hyaline Cast (Auto) 0 (0-5) /lpf U Epithel Cells (Auto) 5-10 H (0-5) /lpf Urine Bacteria (Auto) Negative (Negative) Ur Renal Epithelial Cell Not Reportable Urine Mucus Present A (None Prsent) COVID-19 Eval Order 11/12/20 Range/Units 16:00 WBC (4.8-10.8) K/uL RBC (4.2-5.4) M/uL Hgb (12.0-16.0) g/dL Hct (37-47) % MCV (80-100) fL MCH (25-34) pg MCHC (32-36) g/dL RDW Std Deviation (36.4-46.3) fL RDW Coeff of Jamar (11.5-14.5) % Plt Count (130-400) K/uL MPV (7.4-10.4) fL Immature Gran % (Auto) % Neut % (Auto) % Lymph % (Auto) % [place] % (Auto) % Eos % (Auto) % Baso % (Auto) % Neut # (Auto) (1.4-6.5) K/uL Lymph # (Auto) (1.2-3.4) K/uL [place] # (Auto) (0.11-0.59) K/uL Eos # (Auto) (0-0.5) K/uL Baso # (Auto) (0-0.2) K/uL Immature Gran # (Auto) (0.00-0.02) K/uL Sodium (136-145) mmol/L Potassium (3.5-5.1) mmol/L Chloride (98-107) mmol/L Carbon Dioxide (21-32) mmol/L Anion Gap (3-11) BUN (7-18) mg/dl Creatinine (0.6-1.2) mg/dl Est Cr Clr Drug Dosing Est GFR ( Amer) Est GFR (Non-Af Amer) BUN/Creatinine Ratio (10-20) Glucose (70-99) mg/dl Calcium (8.5-10.1) mg/dl Total Bilirubin (0.2-1) mg/dl AST (15-37) U/L ALT (12-78) U/L Alkaline Phosphatase (45-117) U/L Troponin I (0-0.045) ng/ml Total Protein (6.4-8.2) gm/dl Albumin (3.4-5.0) gm/dl Globulin (2.5-4.0) gm/dl Albumin/Globulin Ratio (0.9-2) Lipase (73-393) U/L Urine Color Urine Appearance (Clear) Urine pH (4.5-7.5) Ur Specific [place] (1.000-1.030) Urine Protein (Negative) Urine Glucose (UA) (Negative) Urine Ketones (Negative) Urine Blood (Negative) Urine Nitrite (Negative) Urine Bilirubin (Negative) Urine Urobilinogen (Negative) Ur Leukocyte Esterase (Negative) Urine WBC (Auto) (0-5) /hpf Urine RBC (Auto) (0-4) /hpf U Hyaline Cast (Auto) (0-5) /lpf U Epithel Cells (Auto) (0-5) /lpf Urine Bacteria (Auto) (Negative) Ur Renal Epithelial Cell Urine Mucus (None Prsent) COVID-19 Eval Order CovFluRsv at [facility] Administered Medications Discontinued Medications Fentanyl Citrate (Fentanyl Citrate 100 Mcg/2 Ml Vial) 50 mcg IV NOW STA Stop: 11/12/20 10:37 Last Admin: 11/12/20 11:22 Dose: 50 mcg Documented by: [id number] Sodium Chloride (Nss 1000ml) 1,000 mls @ 999 mls/hr IV .Q1H1M STA Stop: 11/12/20 11:36 Last Infusion: 11/12/20 12:34 Dose: 0 mls/hr Documented by: [id number] Admin: 11/12/20 11:22 Dose: 999 mls/hr Documented by: [id number] Sodium Chloride (Nss 1000ml) 500 mls @ 999 mls/hr IV .Q31M ONE Stop: 11/12/20 13:29 Last Infusion: 11/12/20 14:30 Dose: 0 mls/hr Documented by: [id number] Admin: 11/12/20 13:34 Dose: 999 mls/hr Documented by: [id number] Ioversol (Optiray 300 100ml) 89 ml IV ONCE ONE Stop: 11/12/20 12:08 Last Admin: 11/12/20 12:08 Dose: 89 ml Documented by: [id number] Lidocaine (Lidocaine 5% 1 Patch) 1 patch TD NOW STA Stop: 11/12/20 13:00 Last Admin: 11/12/20 13:33 Dose: 1 patch Documented by: [id number] Ondansetron HCl (Ondansetron Inj 2 Mg/Ml 2 Ml Vial) 4 mg IV NOW STA Stop: 11/12/20 10:37 Last Admin: 11/12/20 11:22 Dose: 4 mg Documented by: [id number] Oxycodone HCl (Oxycodone Hcl Ir 5 Mg Tab (Immediate Release)) 5 mg PO NOW STA Stop: 11/12/20 13:00 Last Admin: 11/12/20 13:33 Dose: 5 mg Documented by: [id number] Imaging Data Radiologist's Impression: Abdomen/Pelvis CT 11/12/20 10:[address] WITH IV CONTRAST CT DOSE: 390.35 mGy.cm HISTORY: Acute left-sided abdominal pain with recent acute diverticulitis recent diverticulitis, L sided ab pain TECHNIQUE: Multiaxial CT images of the abdomen and pelvis were performed following the IV administration of 89 cc of Optiray, A dose lowering technique was utilized adhering to the principles of ALARA. COMPARISON STUDY: CT abdomen and pelvis 11/08/2020 FINDINGS: Imaged inferior cardiac chambers are unremarkable. Dependent bibasilar atelectasis/scarring. Mild bibasilar mucous plugging. No pneumatosis or pneumoperitoneum. Unremarkable spleen, pancreas and adrenal glands. Cholecystectomy. Intrahepatic and extrahepatic biliary ductal dilation is likely postsurgical. The liver is otherwise unremarkable. Patency of the hepatic and portal veins. Bilateral renal sinus cysts. No urolith or hydronephrosis. Partial distention of the urinary bladder. Fibroid uterus. No adnexal mass lesions identified. Calcified plaque aorta. No aneurysm. No adenopathy. Small hiatal hernia. Duodenal diverticulum. Colonic diverticulosis. Mild persistent sigmoid wall thickening with pericolonic stranding is similar to comparison. No evidence of perforation or obstruction. Colonic air-fluid levels. Partial right hemicolectomy with ileocolic anastomosis. Tiny fat filled periumbilical hernia. Degenerative changes of the spine, pelvis and hips. Mild lumbar levoscoliosis. No acute fracture. IMPRESSION: 1. Stable appearance of the mild acute sigmoid diverticulitis. No evidence of perforation or abscess. Follow-up colonoscopy may be considered to exclude the less likely possibility of an underlying lesion. 2. No bowel obstruction. 3. Small hiatal hernia. 4. Additional findings as above. ACT 112: Negative or not required by law. The above report was generated using voice recognition software. It may contain grammatical, syntax or spelling errors. Electronically signed by: Bryon Villalta M.D. 11/12/2020 12:39 PM Chest/Abdomen X-ray 11/12/20 10:36 XR abdomen 2V w PA chest HISTORY: 80 years-old Female ab pain, h/o divertic, r/o perf acute generalized abdominal pain COMPARISON: CT abdomen and pelvis 11/08/2020 TECHNIQUE: Portable AP view of the chest with erect and supine views of the abdomen FINDINGS: Cardiomediastinal and hilar silhouettes are within normal limits. No pneumothorax, pleural effusion, airspace consolidation or overt pulmonary edema. Healed chronic right proximal humeral fracture. Degenerative changes of the shoulders and spine. Cholecystectomy. Nonobstructive bowel gas pattern. No pneumatosis or pneumoperitoneum. Numerous phleboliths of the pelvis. No urolith identified. Lumbar levoscoliosis with multilevel degenerative changes. IMPRESSION: 1. No acute processes of the chest. 2. Nonobstructive bowel gas pattern without pneumoperitoneum. ACT 112: Negative or not required by law. The above report was generated using voice recognition software. It may contain grammatical, syntax or spelling errors. Electronically signed by: Bryon Villalta M.D. 11/12/2020 12:00 PM Discharge Plan Visit Data Chief Complaint: Abdominal Pain Stated Complaint: DIVERTICULITIS ED Provider: Sterling Rivero Discharge Problem: Diverticulitis, Abdominal pain, Hypokalemia Forms Stand Alone Forms: [facility] [employer] Prescriptions Prescriptions: No Action temazepam 7.5 mg capsule 7.5 mg PO HS RF: 0 pantoprazole 40 mg tablet,delayed release (DR/EC) 40 mg PO DAILY RF: 0 metoprolol tartrate 25 mg tablet 25 mg PO BID RF: 0 aspirin [Aspirin Low Dose] 81 mg Tablet,Delayed Release (Dr/Ec) 81 mg PO DAILY RF: 0 fluoxetine 20 mg capsule 20 mg PO DAILY RF: 0 multivitamin [Multiple Vitamins] Tablet 1 tab PO DAILY RF: 0 nitroglycerin 0.4 mg Tablet, Sublingual 0.4 mg sublingual UD PRN (Reason: Chest Pain) RF: 0 fluocinolone and shower cap 0.01 % oil 1 ea TOPICAL UD RF: 0 metronidazole [Flagyl] 500 mg tablet 500 mg PO Q8H 7 Days Qty: 21 RF: 0 ciprofloxacin HCl 500 mg tablet 500 mg PO BID Qty: 14 RF: 0 Discharge Problem: Abdominal pain Qualifiers: Abdominal location: left lower quadrant Qualified Code(s): R10.32 - Left lower quadrant pain
[2020-11-12] MEDS ORDERED: SODIUM CHLORIDE 0.9% 1000ML 1,000 ML IV STA (10:36)
[2020-11-12] MEDS ORDERED: ONDANSETRON INJ 2 MG/ML 2 ML VIAL IV STA (10:36)
[2020-11-12] MEDS ORDERED: fentaNYL citrate 100 MCG/2 ML VIAL IV STA (10:36)
[2020-11-12 11:25] LABS: Basophils # (auto) 0.01 K/uL (0-0.2); Basophils % (auto) 0.1 %; Eosinophils # (auto) 0.16 K/uL (0-0.5); Eosinophils % (auto) 1.9 %; Hemoglobin 11.9 g/dL (12.0-16.0); Immature Granulocytes # (auto) 0.02 K/uL (0.00-0.02); Immature Granulocytes % (auto) 0.2 %; Lymphocytes % (auto) 11.6 %; Mean Corpuscular Hemoglobin 25.1 pg (25-34); Mean Corpuscular Hgb Conc 32.2 g/dL (32-36); Mean Corpuscular Volume 77.9 fL (80-100); Mean Platelet Volume 8.6 fL (7.4-10.4); Monocytes # (auto) 0.66 K/uL (0.11-0.59); Monocytes % (auto) 7.7 %; Neutrophils # (auto) 6.77 K/uL (1.4-6.5); Neutrophils % (auto) 78.5 %; Platelet Count 637 K/uL (130-400); RDW Coefficient of Variation 16.9 % (11.5-14.5); RDW Standard Deviation 48.2 fL (36.4-46.3); Red Blood Count 4.75 M/uL (4.2-5.4); White Blood Count 8.62 K/uL (4.8-10.8)
[2020-11-12 11:42] LABS: Alanine Aminotransferase 13 U/L (12-78); Albumin Level 2.7 gm/dl (3.4-5.0); Aspartate Aminotransferase 6 U/L (15-37); BUN Creatinine Ratio 17.7 (10-20); Blood Urea Nitrogen 13 mg/dl (7-18); Calcium 8.7 mg/dl (8.5-10.1); Carbon Dioxide 27 mmol/L (21-32); Chloride 105 mmol/L (98-107); Est GFR (African American) 90.8; Est GFR (Non-African American) 78.3; Glucose 118 mg/dl (70-99); Lipase 84 U/L (73-393); Potassium 3.4 mmol/L (3.5-5.1); Sodium 140 mmol/L (136-145)
[2020-11-12 11:46] LABS: Albumin Globulin Ratio 0.5 (0.9-2); Alkaline Phosphatase 79 U/L (45-117); Bilirubin,Total 0.3 mg/dl (0.2-1); Globulin 5.3 gm/dl (2.5-4.0); Troponin I < 0.015 ng/ml (0-0.045)
--- NOTE | 2020-11-12 12:02 | XRay Report ---
XR abdomen 2V w PA chest HISTORY: 80 years-old Female ab pain, h/o divertic, r/o perf acute generalized abdominal pain COMPARISON: CT abdomen and pelvis 11/08/2020 TECHNIQUE: Portable AP view of the chest with erect and supine views of the abdomen FINDINGS: Cardiomediastinal and hilar silhouettes are within normal limits. No pneumothorax, pleural effusion, airspace consolidation or overt pulmonary edema. Healed chronic right proximal humeral fracture. Dege nerative changes of the shoulders and spine. Cholecystectomy. Nonobstructive bowel gas pattern. No pneumatosis or pneumoperitoneum. Numerous phleb oliths of the pelvis. No urolith identified. Lumbar levoscoliosis with multilevel degenerative change s. IMPRESSION: 1. No acute processes of the chest. 2. Nonobstructive bowel gas pattern without pneumoperitoneum. ACT 112: Negative or not required by law. The above report was generated using voice recognition software. It may contain grammatical, syntax o r spelling errors. Electronically signed by: Bryon Villalta M.D. 11/12/2020 12:00 PM
[2020-11-12] MEDS ORDERED: OPTIRAY 300 100mL IV ONE (12:07)
--- NOTE | 2020-11-12 12:41 | CT Scan Report ---
ABDOMEN AND PELVIS CT WITH IV CONTRAST CT DOSE: 390.35 mGy.cm HISTORY: Acute left-sided abdominal pain with recent acute diverticulitis recent diverticulitis, L s ided ab pain TECHNIQUE: Multiaxial CT images of the abdomen and pelvis were performed following the IV administrat ion of 89 cc of Optiray, A dose lowering technique was utilized adhering to the principles of ALARA. COMPARISON STUDY: CT abdomen and pelvis 11/08/2020 FINDINGS: Imaged inferior cardiac chambers are unremarkable. Dependent bibasilar atelectasis/scarring. Mild bib asilar mucous plugging. No pneumatosis or pneumoperitoneum. Unremarkable spleen, pancreas and adrenal glands. Cholecystectomy. Intrahepatic and extrahepatic biliary ductal dilation is likely postsurgica l. The liver is otherwise unremarkable. Patency of the hepatic and portal veins. Bilateral renal sinus cysts. No urolith or hydronephrosis. Partial distention of the urinary bladder. Fibroid uterus. No adnexal mass lesions identified. Calcified plaque aorta. No aneurysm. No adenopat hy. Small hiatal hernia. Duodenal diverticulum. Colonic diverticulosis. Mild persistent sigmoid wall thic kening with pericolonic stranding is similar to comparison. No evidence of perforation or obstruction . Colonic air-fluid levels. Partial right hemicolectomy with ileocolic anastomosis. Tiny fat filled p eriumbilical hernia. Degenerative changes of the spine, pelvis and hips. Mild lumbar levoscoliosis. N o acute fracture. IMPRESSION: 1. Stable appearance of the mild acute sigmoid diverticulitis. No evidence of perforation or abscess. Follow-up colonoscopy may be considered to exclude the less likely possibility of an underlying lesi on. 2. No bowel obstruction. 3. Small hiatal hernia. 4. Additional findings as above. ACT 112: Negative or not required by law. The above report was generated using voice recognition software. It may contain grammatical, syntax o r spelling errors. Electronically signed by: Bryon Villalta M.D. 11/12/2020 12:39 PM
[2020-11-12] MEDS ORDERED: LIDOCAINE 5% 1 PATCH TD STA (12:59)
[2020-11-12] MEDS ORDERED: SODIUM CHLORIDE 0.9% 1000ML 500 ML IV ONE (12:59)
[2020-11-12] MEDS ORDERED: oxyCODONE HCL IR 5 MG TAB (IMMEDIATE RELEASE) PO STA (12:59)
[2020-11-12 14:16] LABS: Appearance Urine Clear (Clear); Bacteria Urine Automated Negative (Negative); Bilirubin Urine Negative (Negative); Blood Urine Negative (Negative); Color Urine Dark Yellow; Glucose Urine UA Negative (Negative); Ketones Urine 2+ (Negative); Leukocyte Esterase Urine Trace (Negative); Nitrite Urine Positive (Negative); Protein Urine Trace (Negative); RBC Urine Automated 0-4 /hpf (0-4); Urobilinogen Urine Negative (Negative)
[2020-11-12 14:22] LABS: Specific Gravity Urine >= 1.045 (1.000-1.030)
[2020-11-12 14:39] LABS: Cast Urine Automated 0 /lpf (0-5); Mucus Urine Present (None Prsent)
--- NOTE | 2020-11-12 16:12 | History & Physical Report ---
Date of Service November 12, 2020 Assessment & Plan (1) Sigmoid diverticulitis: (2) Hypokalemia: (3) CAD (coronary artery disease): (4) LIGIA (iron deficiency anemia): (5) DVT prophylaxis: Flagyl and Cipro IV, inpatient status secondary to unable to keep her medicines down, continue outpatient medications where appropriate, n.p.o. except for chips sips and meds, IV fluids, DVT prophylaxis with subcu heparin, monitor daily labs. Labs checked ROS-No Headache, No Visual Changes, positive nausea, positive vomiting, No Fever, No Chills, No Neck Pain or Stiffness, No Chest Pain, No Palpitations, No SOB, No BARON, No Cough, No Sputum, No Wheezing, positive abdominal Pain, occasional diarrhea, No Hematemesis, No Hemoptysis, No Unexpected Weight Loss, No Flank pain, No Melena, No Hematochezia, No Frequency, No Urgency, No Burning, No Hematuria, No Rashes, No Diaphoresis. Appetite is decreased Physical Exam Gen-AAO x 3, NAD, Afebrile Head-NCAT, EOMI, PERRLA, Anicteric Sclera, No Posterior Pharyngeal Erythema Neck-Supple, No JVD, No Thyromegaly, No Masses, No LAD, No Bruits Lungs-Clear to Auscultation Bilaterally, No Rales, No Rhonchi, No Wheezing, No Crepitus Chest-No S4, +S1, +S2, No S3, No Murmurs, No Rubs, No Gallops, No Ectopy Abdomen-Soft, Bowel Sounds Present, Tender, Non Distended, No Hepatomegaly, No Splenomegaly, No Palpable Masses, No Rebound, No Rigidity, No Guarding Musculoskeletal-Full Range of Motion Bilaterally, No CVAT Extremities-No Cyanosis, No Clubbing, No Edema Nuero-Cranial Nerves II-XII grossly intact, Motor WNL, DTRs WNL, Strength WNL, Non Focal Psych-Normal Mood History of Present Illness Chief Complaint: Abdominal pain Primary Care Provider: Bruce Sheridan DO 80-year-old female with a past medical history of colon cancer, hiatal hernia, coronary artery disease with a stent, iron deficiency anemia, GI bleed, depression, who presents today with abdominal pain that is not going away. It is associated with nausea and decreased appetite. The abdominal pain gets to the point where she does not want a move. She was here on 08 November and was treated and released for diverticulitis with Cipro and Flagyl. Her white count was 11.7 at the time and now it is down to normal, but she is unable to keep her medicines down comfortably so she came back to the hospital. I will put her on MedSurg under inpatient status secondary to requiring IV antibiotics because she cannot keep her oral antibiotics down. I will make her n.p.o. and put her on IV fluids until her abdominal pain is gone and then I will reinitiate her diet. Past medical history as below Past surgical history as below Allergies medications as below Family historymother of ovarian cancer, father of coronary artery disease, she has a healthy son and healthy daughter. Social historyvery rarely drinks alcohol, quit smoking a long time ago, she is a Allergies Allergy/AdvReac Type Severity Reaction Status Date / Time hydrocodone Allergy Unknown UNKNOWN Verified 11/08/20 15:55 Macrolide Antibiotics Allergy Unknown ALLERGIC Verified 11/08/20 15:55 TO "MYCINS" Penicillins Allergy Unknown HIVES Verified 11/08/20 15:55 Sulfa (Sulfonamide Allergy Unknown HIVES Verified 11/08/20 15:55 Antibiotics) lisinopril AdvReac Unknown cough Verified 11/08/20 15:55 Home Medications Medication Instructions Recorded Confirmed Type aspirin [Aspirin Low Dose] 81 mg PO DAILY 11/08/20 11/12/20 History ciprofloxacin HCl 500 mg PO BID #14 tab 11/08/20 11/12/20 Rx fluocinolone and shower cap 1 ea TOPICAL UD 11/08/20 11/12/20 History fluoxetine 20 mg PO DAILY 11/08/20 11/12/20 History metoprolol tartrate 25 mg PO BID 11/08/20 11/12/20 History metronidazole [Flagyl] 500 mg PO Q8H 7 Days #21 tab 11/08/20 11/12/20 Rx multivitamin [Multiple Vitamins] 1 tab PO DAILY 11/08/20 11/12/20 History nitroglycerin 0.4 mg SUBLINGUAL UD PRN 11/08/20 11/12/20 History pantoprazole 40 mg PO DAILY 11/08/20 11/12/20 History temazepam 7.5 mg PO HS 11/08/20 11/12/20 History Past Med/Surg History Medical History CAD (coronary artery disease) "06/2011 - inferior STEMI s/p aspiration thrombectomy to LCX with 2 KAYY and KAYY to RCA" On 01/24/14 13:30 Oneida Arroyo wrote "ME 06/2011, 2 KAYY to the circumflex, 1 KAYY to the RCA echo 11/2013 showed EF 60-65%, mild mitral regurgitation " 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" Surgical History H/O dilation and curettage History of oophorectomy, unilateral Hx of tubal ligation S/P anal fissurectomy S/P cholecystectomy S/P repair of paraesophageal hernia Social History Smoking Status: Former smoker Preferred Language: Wolof Feels Safe at Home: Yes Results & Data Results & Data ([facility]) Vital Signs (Past 12 Hours) Vital Signs Temp Pulse Resp BP Pulse Ox 11/12/20 10:26 36.4 C L 84 19 111/80 97 Allergies hydrocodone Allergy (Unknown, Verified 11/08/20 15:55) UNKNOWN Macrolide Antibiotics Allergy (Unknown, Verified 11/08/20 15:55) ALLERGIC TO "MYCINS" Penicillins Allergy (Unknown, Verified 11/08/20 15:55) HIVES Sulfa (Sulfonamide Antibiotics) Allergy (Unknown, Verified 11/08/20 15:55) HIVES lisinopril Adverse Reaction (Unknown, Verified 11/08/20 15:55) cough Height/Weight/Isolation Height 5 ft 2 in Weight 64.2 kg Chemistry 11/12/20 11:17 Sodium 140 Potassium 3.4 L Chloride 105 Carbon Dioxide 27 Anion Gap 8.0 BUN 13 Creatinine 0.73 Glucose 118 H Urinalysis 11/12/20 13:50 Urine Color Dark Yellow Urine Appearance Clear Urine pH 5.0 Ur Specific Bo[place] >= 1.045 H Urine Protein Trace H Urine Glucose (UA) Negative Urine Ketones 2+ H Urine Blood Negative Urine Nitrite Positive A Urine Bilirubin Negative Code Status & VTE Plan Code Status Full code VTE Prophylaxis Plan VTE Prophylaxis will be ordered: Yes
[2020-11-12 17:01] LABS: Influenza A virus by PCR Negative (Neg); Influenza B virus by PCR Negative (Neg); RSV by PCR Negative (Neg); SARS CoV2 RNA(COVID-19) InHosp NEGATIVE (Negative)
[2020-11-12] MEDS ORDERED: POLYETHYLENE (MIRALAX) 17 GM PACK PO PRN (20:00)
[2020-11-12] MEDS ORDERED: ACETAMINOPHEN 325 MG TAB PO PRN (20:00)
[2020-11-12] MEDS ORDERED: NITROGLYCERIN SL 0.4 MG/TAB TAB SL PRN (20:00)
[2020-11-12] MEDS ORDERED: PROCHLORPERAZINE 5 MG in SYRINGE 4 ML IV PRN (20:00)
[2020-11-12] MEDS: MoRPHine SULFATE 2 MG/ML CARP IV PRN (20:34)
[2020-11-12] MEDS: METOPROLOL TARTRATE 25 MG TAB PO SCH (20:37)
[2020-11-12] MEDS: TEMAZEPAM 7.5 MG CAPSULE PO SCH (20:38)
[2020-11-12] MEDS: HEPARIN SOD 5,000 UNIT/0.5 ML VIAL SQ SCH (20:39)
[2020-11-12] MEDS: D5W AND 1/2NSS + 20MEQ KCL 20 MEQ/1,000 ML BAG IV SCH (20:43)
[2020-11-12] MEDS: metroNIDAZOLE 500 MG/100 ML BAG IV SCH (20:44)
--- NOTE | 2020-11-12 22:55 | Electrocardiogram Report ---
Test Reason : Blood Pressure : / mmHG Vent. Rate : 079 BPM Atrial Rate : 079 BPM P-R Int : 150 ms QRS Dur : 086 ms QT Int : 430 ms P-R-T Axes : 057 044 034 degrees QTc Int : 493 ms Poor data quality, interpretation may be adversely affected Normal sinus rhythm Nonspecific ST abnormality Abnormal ECG When compared with ECG of 08-NOV-2020 15:50, No significant change Confirmed by Mayco Sanchez ([id number]) on 11/12/2020 10:55:07 PM Referred By: REFERRED SELF Confirmed By:Mayco Sanchez
[2020-11-13] MEDS: metroNIDAZOLE 500 MG/100 ML BAG IV SCH ×3 (04:38→20:13)
[2020-11-13] MEDS: D5W AND 1/2NSS + 20MEQ KCL 20 MEQ/1,000 ML BAG IV SCH ×2 (05:45→17:57)
[2020-11-13 06:25] LABS: Hemoglobin 10.5 g/dL (12.0-16.0); Mean Corpuscular Hemoglobin 24.8 pg (25-34); Mean Corpuscular Hgb Conc 31.8 g/dL (32-36); Mean Corpuscular Volume 77.8 fL (80-100); Mean Platelet Volume 8.8 fL (7.4-10.4); Platelet Count 636 K/uL (130-400); RDW Standard Deviation 48.8 fL (36.4-46.3); Red Blood Count 4.24 M/uL (4.2-5.4); White Blood Count 6.61 K/uL (4.8-10.8)
[2020-11-13 06:54] LABS: Calcium 8.4 mg/dl (8.5-10.1); Creatinine Clr Calc Pharmacy 70.6 ml/min; Est GFR (African American) 102.2; Est GFR (Non-African American) 88.2; Potassium 3.2 mmol/L (3.5-5.1)
[2020-11-13] MEDS: ASPIRIN 81 MG ECTAB PO SCH (08:41)
[2020-11-13] MEDS: MULTIVITAMIN TAB PO SCH (08:41)
[2020-11-13] MEDS: METOPROLOL TARTRATE 25 MG TAB PO SCH ×2 (08:41→20:38)
[2020-11-13] MEDS: HEPARIN SOD 5,000 UNIT/0.5 ML VIAL SQ SCH ×2 (08:42→20:16)
[2020-11-13] MEDS: PANTOprazole 40 MG TAB PO SCH (08:42)
[2020-11-13] MEDS: FLUoxetine HCL 20 MG CAP PO SCH (08:42)
--- NOTE | 2020-11-13 08:55 | Hospitalist Progress Note ---
Date of Service November 13, 2020 Assessment & Plan (1) Sigmoid diverticulitis: (2) Hypokalemia: (3) CAD (coronary artery disease): (4) LIGIA (iron deficiency anemia): (5) DVT prophylaxis: Continue Flagyl and Cipro IV, abd pain is improving, inpatient status secondary to unable to keep her medicines down, continue outpatient medications where appropriate, Keep n.p.o. except for chips sips and meds, Continue IV fluids, DVT prophylaxis with subcu heparin, continue to monitor daily labs. Labs checked DC 1-2 days, Feed tomorrow if abd pain ROS-No Headache, No Visual Changes, No nausea, No vomiting, No Fever, No Chills, No Neck Pain or Stiffness, No Chest Pain, No Palpitations, No SOB, No BARON, No Cough, No Sputum, No Wheezing, improved abdominal Pain, No diarrhea, No Hematemesis, No Hemoptysis, No Unexpected Weight Loss, No Flank pain, No Melena, No Hematochezia, No Frequency, No Urgency, No Burning, No Hematuria, No Rashes, No Diaphoresis. Appetite is increasing Physical Exam Gen-AAO x 3, NAD, Afebrile Head-NCAT, EOMI, PERRLA, Anicteric Sclera, No Posterior Pharyngeal Erythema Neck-Supple, No JVD, No Thyromegaly, No Masses, No LAD, No Bruits Lungs-Clear to Auscultation Bilaterally, No Rales, No Rhonchi, No Wheezing, No Crepitus Chest-No S4, +S1, +S2, No S3, No Murmurs, No Rubs, No Gallops, No Ectopy Abdomen-Soft, Bowel Sounds Present, Less Tender, Non Distended, No Hepatomegaly, No Splenomegaly, No Palpable Masses, No Rebound, No Rigidity, No Guarding Musculoskeletal-Full Range of Motion Bilaterally, No CVAT Extremities-No Cyanosis, No Clubbing, No Edema Nuero-Cranial Nerves II-XII grossly intact, Motor WNL, DTRs WNL, Strength WNL, Non Focal Psych-Normal Mood Admission and Anticipated Discharge Date Admission Date: November 12, 2020 Results & Data Results & Data ([facility]) Vital Signs (Past 12 Hours) Vital Signs Temp Pulse Resp BP Pulse Ox 11/13/20 07:11 36.7 C 16 138/79 92 11/12/20 23:03 36.5 C 77 16 134/77 92
[2020-11-13] MEDS: POTASSIUM CHLORIDE 20 MEQ/15 ML UDC PO SCH ×3 (09:48→20:38)
[2020-11-13] MEDS: MoRPHine SULFATE 2 MG/ML CARP IV PRN (09:53)
[2020-11-13] MEDS: TEMAZEPAM 7.5 MG CAPSULE PO SCH (20:38)
[2020-11-14] MEDS: metroNIDAZOLE 500 MG/100 ML BAG IV SCH ×3 (04:31→20:43)
[2020-11-14 05:57] LABS: Hemoglobin 10.5 g/dL (12.0-16.0); Mean Corpuscular Hemoglobin 24.7 pg (25-34); Mean Corpuscular Hgb Conc 31.8 g/dL (32-36); Mean Corpuscular Volume 77.6 fL (80-100); Mean Platelet Volume 8.8 fL (7.4-10.4); Platelet Count 648 K/uL (130-400); RDW Coefficient of Variation 17.1 % (11.5-14.5); Red Blood Count 4.25 M/uL (4.2-5.4); White Blood Count 6.52 K/uL (4.8-10.8)
[2020-11-14 06:26] LABS: Calcium 8.3 mg/dl (8.5-10.1); Creatinine Clr Calc Pharmacy 62.9 ml/min; Est GFR (African American) 98.4; Est GFR (Non-African American) 84.9; Potassium 4.5 mmol/L (3.5-5.1)
[2020-11-14] MEDS: D5W AND 1/2NSS + 20MEQ KCL 20 MEQ/1,000 ML BAG IV SCH ×2 (07:37→18:30)
[2020-11-14] MEDS: FLUoxetine HCL 20 MG CAP PO SCH (09:01)
[2020-11-14] MEDS: ASPIRIN 81 MG ECTAB PO SCH (09:01)
[2020-11-14] MEDS: PANTOprazole 40 MG TAB PO SCH (09:02)
[2020-11-14] MEDS: MULTIVITAMIN TAB PO SCH (09:02)
[2020-11-14] MEDS: HEPARIN SOD 5,000 UNIT/0.5 ML VIAL SQ SCH ×2 (09:02→20:43)
[2020-11-14] MEDS: METOPROLOL TARTRATE 25 MG TAB PO SCH ×2 (09:02→20:42)
[2020-11-14] MEDS: POTASSIUM CHLORIDE 20 MEQ/15 ML UDC PO SCH ×3 (09:02→20:43)
--- NOTE | 2020-11-14 11:19 | Hospitalist Progress Note ---
Date of Service November 14, 2020 Assessment & Plan (1) Sigmoid diverticulitis: (2) Hypokalemia: (3) CAD (coronary artery disease): (4) LIGIA (iron deficiency anemia): (5) DVT prophylaxis: Continue Flagyl and Cipro IV, abd pain is gone, Continue IV fluids, Start Clears and AAT, DVT prophylaxis with subcu heparin, continue to monitor daily labs. Labs checked DC tomorrow Cipro and Flagyl to complete a 10 day course, Clears today ROS-No Headache, No Visual Changes, No nausea, No vomiting, No Fever, No Chills, No Neck Pain or Stiffness, No Chest Pain, No Palpitations, No SOB, No BARON, No Cough, No Sputum, No Wheezing, improved abdominal Pain, No diarrhea, No Hemate mesis, No Hemoptysis, No Unexpected Weight Loss, No Flank pain, No Melena, No Hematochezia, No Frequency, No Urgency, No Burning, No Hematuria, No Rashes, No Diaphoresis. Appetite is increasing Physical Exam Gen-AAO x 3, NAD, Afebrile Head-NCAT, EOMI, PERRLA, Anicteric Sclera, No Posterior Pharyngeal Erythema Neck-Supple, No JVD, No Thyromegaly, No Masses, No LAD, No Bruits Lungs-Clear to Auscultation Bilaterally, No Rales, No Rhonchi, No Wheezing, No Crepitus Chest-No S4, +S1, +S2, No S3, No Murmurs, No Rubs, No Gallops, No Ectopy Abdomen-Soft, Bowel Sounds Present, Less Tender, Non Distended, No Hepatomegaly, No Splenomegaly, No Palpable Masses, No Rebound, No Rigidity, No Guarding Musculoskeletal-Full Range of Motion Bilaterally, No CVAT Extremities-No Cyanosis, No Clubbing, No Edema Nuero-Cranial Nerves II-XII grossly intact, Motor WNL, DTRs WNL, Strength WNL, Non Focal Psych-Normal Mood Admission and Anticipated Discharge Date Admission Date: November 12, 2020 Results & Data Results & Data ([facility]) Vital Signs (Past 12 Hours) Vital Signs Temp Resp BP Pulse Ox 11/14/20 07:18 36.8 C 15 144/82 H 95
--- NOTE | 2020-11-14 15:48 | Discharge Summary ---
Date of Service November 14, 2020 Admission HPI Per Admitting Provider 80-year-old female with a past medical history of colon cancer, hiatal hernia, coronary artery disease with a stent, iron deficiency anemia, GI bleed, depression, who presents today with abdominal pain that is not going away. It is associated with nausea and decreased appetite. The abdominal pain gets to the point where she does not want a move. She was here on 08 November and was treated and released for diverticulitis with Cipro and Flagyl. Her white count was 11.7 at the time and now it is down to normal, but she is unable to keep her medicines down comfortably so she came back to the hospital. I will put her on MedSurg under inpatient status secondary to requiring IV antibiotics because she cannot keep her oral antibiotics down. I will make her n.p.o. and put her on IV fluids until her abdominal pain is gone and then I will reinitiate her diet. Past medical history as below Past surgical history as below Allergies medications as below Family historymother of ovarian cancer, father of coronary artery disease, she has a healthy son and healthy daughter. Social historyvery rarely drinks alcohol, quit smoking a long time ago, she is a Admission Exam Per Admitting Provider ROS-No Headache, No Visual Changes, positive nausea, positive vomiting, No Fever, No Chills, No Neck Pain or Stiffness, No Chest Pain, No Palpitations, No SOB, No BARON, No Cough, No Sputum, No Wheezing, positive abdominal Pain, occasional diarrhea, No Hematemesis, No Hemoptysis, No Unexpected Weight Loss, No Flank pain, No Melena, No Hematochezia, No Frequency, No Urgency, No Burning, No Hematuria, No Rashes, No Diaphoresis. Appetite is decreased Physical Exam Gen-AAO x 3, NAD, Afebrile Head-NCAT, EOMI, PERRLA, Anicteric Sclera, No Posterior Pharyngeal Erythema Neck-Supple, No JVD, No Thyromegaly, No Masses, No LAD, No Bruits Lungs-Clear to Auscultation Bilaterally, No Rales, No Rhonchi, No Wheezing, No Crepitus Chest-No S4, +S1, +S2, No S3, No Murmurs, No Rubs, No Gallops, No Ectopy Abdomen-Soft, Bowel Sounds Present, Tender, Non Distended, No Hepatomegaly, No Splenomegaly, No Palpable Masses, No Rebound, No Rigidity, No Guarding Musculoskeletal-Full Range of Motion Bilaterally, No CVAT Extremities-No Cyanosis, No Clubbing, No Edema Nuero-Cranial Nerves II-XII grossly intact, Motor WNL, DTRs WNL, Strength WNL, Non Focal Psych-Normal Mood Principal Diagnosis (1) Sigmoid diverticulitis: (2) Hypokalemia: (3) CAD (coronary artery disease): (4) LIGIA (iron deficiency anemia): Discharge Exam see below Discharge Data Allergies Allergy/AdvReac Type Severity Reaction Status Date / Time hydrocodone Allergy Unknown UNKNOWN Verified 11/08/20 15:55 Macrolide Antibiotics Allergy Unknown ALLERGIC Verified 11/08/20 15:55 TO "MYCINS" Penicillins Allergy Unknown HIVES Verified 11/08/20 15:55 Sulfa (Sulfonamide Allergy Unknown HIVES Verified 11/08/20 15:55 Antibiotics) lisinopril AdvReac Unknown cough Verified 11/08/20 15:55 Consultations 11/12/20 15:33 ED Decision to Admit Stat Ordered Studies 11/12/20 10:36 CT abd pelvis IV con only Stat Current Diagnoses Iron deficiency anemia, unspecified (11/12/20) Hypokalemia (11/12/20) Atherosclerotic heart disease of [place] coronary artery without angina pectoris (11/12/20) Diverticulitis of large intestine without perforation or abscess without bleeding (11/12/20) Encounter for prophylactic measures, unspecified (11/12/20) Allergies hydrocodone Allergy (Unknown, Verified 11/08/20 15:55) UNKNOWN Macrolide Antibiotics Allergy (Unknown, Verified 11/08/20 15:55) ALLERGIC TO "MYCINS" Penicillins Allergy (Unknown, Verified 11/08/20 15:55) HIVES Sulfa (Sulfonamide Antibiotics) Allergy (Unknown, Verified 11/08/20 15:55) HIVES lisinopril Adverse Reaction (Unknown, Verified 11/08/20 15:55) cough Height/Weight/Isolation Height 5 ft 2 in Weight 64.5 kg Chemistry 11/13/20 11/14/20 05:43 05:28 Sodium 138 140 Potassium 3.2 L 4.5 D Chloride 106 109 H Carbon Dioxide 25 28 Anion Gap 8.0 3.0 BUN 9 4 L D Creatinine 0.57 L 0.64 Glucose 122 H 115 H Microbiology 11/12/20 13:50 Urine,Clean Catch Urine Culture - Final No growth - less than 1,000 colonies/mL. Hospital Course (1) Sigmoid diverticulitis: (2) Hypokalemia: (3) CAD (coronary artery disease): (4) LIGIA (iron deficiency anemia): (5) DVT prophylaxis: Patient came in secondary to acute sigmoid diverticulitis, she was on Cipro and Flagyl as an outpatient but she could not tolerate the regimen. We brought her back and put her on IV Cipro and Flagyl and made her n.p.o. except for chips sips and meds. On 11 14 she felt markedly better so we started on a clear diet advance as tolerated and she will be discharged on 11/15 if she tolerates her diet overnight Continue course of Flagyl and Cipro orally as an outpatient to complete a 10-day course, abd pain is gone Labs checked DC 11/15 on Cipro and Flagyl to complete a 10 day course ROS-No Headache, No Visual Changes, No nausea, No vomiting, No Fever, No Chills, No Neck Pain or Stiffness, No Chest Pain, No Palpitations, No SOB, No BARON, No Cough, No Sputum, No Wheezing, improved abdominal Pain, No diarrhea, No Ankur temesis, No Hemoptysis, No Unexpected Weight Loss, No Flank pain, No Melena, No Hematochezia, No Frequency, No Urgency, No Burning, No Hematuria, No Rashes, No Diaphoresis. Appetite is increasing Physical Exam Gen-AAO x 3, NAD, Afebrile Head-NCAT, EOMI, PERRLA, Anicteric Sclera, No Posterior Pharyngeal Erythema Neck-Supple, No JVD, No Thyromegaly, No Masses, No LAD, No Bruits Lungs-Clear to Auscultation Bilaterally, No Rales, No Rhonchi, No Wheezing, No Crepitus Chest-No S4, +S1, +S2, No S3, No Murmurs, No Rubs, No Gallops, No Ectopy Abdomen-Soft, Bowel Sounds Present, Less Tender, Non Distended, No Hepatomegaly, No Splenomegaly, No Palpable Masses, No Rebound, No Rigidity, No Guarding Musculoskeletal-Full Range of Motion Bilaterally, No CVAT Extremities-No Cyanosis, No Clubbing, No Edema Nuero-Cranial Nerves II-XII grossly intact, Motor WNL, DTRs WNL, Strength WNL, Non Focal Psych-Normal Mood Total Time Total Time Spent Total Time Spent (In Minutes): 45 mins Total Time Includes: Examination of the Patient, Discharge Planning, Medication Reconciliation and Communication With Other Providers Discharge Plan Discharge Items Patient Disposition: Home - Self-Care Reason For Visit: ACUTE SIGMOID DIVERTICULITIS Discharge Diagnosis: (1) Sigmoid diverticulitis: (2) Hypokalemia: (3) CAD (coronary artery disease): (4) LIGIA (iron deficiency anemia): Condition on Discharge: Good Health Concerns: Ability to keep meds down at home Activity: Resume your previous activity Lifting: Gradually increase as tolerated Bathing: No limitations Exercise/Sports: Gradually increase as tolerated Driving/Machine Use: No limitations Weightbearing: Full weightbearing Non-emergency contact: Primary Care Provider Call non-emergency contact if: you have any medication questions Follow-up/Referrals: Bruce Sheridan, [Primary Care Provider] - Diet: Heart Healthy Addtl Attending Provider Instructions: Restart a clear diet if your pain comes back, return to the ER if you can't keep your antibiotics down. Metronidazole can cause nausea so take the Compazine for nausea 1/2 hour prior to the Metronidazole if it does make you nauseous. Pending Studies at Discharge: No Stand-Alone Forms: My [facility], Smoking Cessation Medications and DC Order Prescriptions: New acetaminophen 325 mg Tablet 650 mg PO Q4H PRN (Reason: fever or pain) Qty: 90 RF: 0 prochlorperazine maleate [Compazine] 5 mg tablet 5 mg PO Q8H PRN (Reason: nausea and vomiting) Qty: 20 RF: 0 Continued temazepam 7.5 mg capsule 7.5 mg PO HS RF: 0 pantoprazole 40 mg tablet,delayed release (DR/EC) 40 mg PO DAILY RF: 0 metoprolol tartrate 25 mg tablet 25 mg PO BID RF: 0 aspirin [Aspirin Low Dose] 81 mg Tablet,Delayed Release (Dr/Ec) 81 mg PO DAILY RF: 0 fluoxetine 20 mg capsule 20 mg PO DAILY RF: 0 multivitamin [Multiple Vitamins] Tablet 1 tab PO DAILY RF: 0 nitroglycerin 0.4 mg Tablet, Sublingual 0.4 mg sublingual UD PRN (Reason: Chest Pain) RF: 0 fluocinolone and shower cap 0.01 % oil 1 ea TOPICAL UD RF: 0 metronidazole [Flagyl] 500 mg tablet 500 mg PO Q8H 7 Days Qty: 21 RF: 0 ciprofloxacin HCl 500 mg tablet 500 mg PO BID Qty: 14 RF: 0 Discharge Orders: Discharge Order (Routine); Ordered 11/14/20 Ordered By: Benji Lee Admission Data Admit Date/Time: 11/12/20 16:18 Attending Provider: Benji Lee Admit Provider: Benji Lee Primary Care Provider: Bruce Sheridan Other Providers: Benji Lee
[2020-11-14] MEDS: TEMAZEPAM 7.5 MG CAPSULE PO SCH (20:54)
[2020-11-15] MEDS: metroNIDAZOLE 500 MG/100 ML BAG IV SCH (04:04)
[2020-11-15 06:16] LABS: Hematocrit (blood only) 32.8 % (37-47); Hemoglobin 10.4 g/dL (12.0-16.0); Mean Corpuscular Hemoglobin 24.5 pg (25-34); Mean Corpuscular Hgb Conc 31.7 g/dL (32-36); Mean Corpuscular Volume 77.4 fL (80-100); Mean Platelet Volume 8.6 fL (7.4-10.4); Platelet Count 577 K/uL (130-400); RDW Coefficient of Variation 17.2 % (11.5-14.5); RDW Standard Deviation 49.1 fL (36.4-46.3); Red Blood Count 4.24 M/uL (4.2-5.4); White Blood Count 7.16 K/uL (4.8-10.8)
[2020-11-15 06:46] LABS: BUN Creatinine Ratio 5.2 (10-20); Calcium 8.5 mg/dl (8.5-10.1); Creatinine Clr Calc Pharmacy 51.6 ml/min; Est GFR (African American) 83.8; Est GFR (Non-African American) 72.3; Potassium 4.2 mmol/L (3.5-5.1)
[2020-11-15] MEDS: D5W AND 1/2NSS + 20MEQ KCL 20 MEQ/1,000 ML BAG IV SCH ×2 (08:20→10:26)
[2020-11-15] MEDS: POTASSIUM CHLORIDE 20 MEQ/15 ML UDC PO SCH (08:43)
[2020-11-15] MEDS: MULTIVITAMIN TAB PO SCH (08:44)
[2020-11-15] MEDS: PANTOprazole 40 MG TAB PO SCH (08:44)
[2020-11-15] MEDS: METOPROLOL TARTRATE 25 MG TAB PO SCH (08:44)
[2020-11-15] MEDS: ASPIRIN 81 MG ECTAB PO SCH (08:44)
[2020-11-15] MEDS: HEPARIN SOD 5,000 UNIT/0.5 ML VIAL SQ SCH (08:44)
[2020-11-15] MEDS: FLUoxetine HCL 20 MG CAP PO SCH (08:44)
[2020-11-15] MEDS ORDERED: CIPROFLOXACIN / D5W 400 MG/200 ML BAG IV SCH (09:30)
--- NOTE | 2020-11-15 12:11 | Hospitalist Progress Note ---
Date of Service November 15, 2020 Assessment & Plan (1) Sigmoid diverticulitis: Cipro not given this admission, but improved on Flagyl IV. Gave one dose of cipro this morning and transition to oral cipro/flagyl regimen for additional 7 days to complete the course. (2) Hypokalemia: Normal-resolved. (3) CAD (coronary artery disease): chronic, stable. Cont home medical therapy including ASA and metoprolol. (4) DVT prophylaxis: heparin Full Code Dispo-to home [facility] Hospitalist Admission and Anticipated Discharge Date Admission Date: November 12, 2020 Subjective 80-year-old female admitted with sigmoid diverticulitis. She reports a significant improvement in pain overall and has been tolerating solid food since last night. She reports ambulating without any lightheadedness or issues. She feels comfortable for discharge home. Review of Systems Review of Systems: All systems reviewed & are unremarkable except as noted in Subjective Physical Exam Physical Exam: CONSTITUTIONAL: WNWD, vitals as above, generally well- appearing EYES: normal conjunctivae, no scleral icterus ENT: external ear and nose normal, MMM RESPIRATORY: clear to auscultation bilaterally, no crackles, rales or wheezes, normal respiratory effort CARDIOVASCULAR: regular rate and rhythm, S1 and 2 heard without murmurs, gallops or rubs, no JVD, no peripheral edema GASTROINTESTINAL: soft, nontender, nondistended, no guarding MUSCULOSKELETAL: strength 5/5 throughout, head is normocephalic and atraumatic SKIN: warm and dry NEUROLOGIC: CN 2-12 grossly intact, normal cognition, normal speech, no tremor, no gross focal deficits. PSYCHIATRIC: alert cooperative and oriented to person, place and time. Results & Data Results & Data ([facility]) Vital Signs (Past 12 Hours) Vital Signs Temp Pulse Pulse Resp BP Pulse Ox 11/15/20 08:06 36.4 C L 70 66 16 145/85 H 94 11/15/20 07:42 36.4 C L 70 16 145/85 H 94 Laboratory Results Short CBC 11/15/20 Range/Units 05:48 WBC 7.16 (4.8-10.8) K/uL Hgb 10.4 L (12.0-16.0) g/dL Hct 32.8 L (37-47) % Plt Count 577 H (130-400) K/uL BMP 11/15/20 05:48 Sodium 140 Potassium 4.2 Chloride 110 H Carbon Dioxide 27 BUN 4 L Creatinine 0.78 Glucose 115 H Calcium 8.5 Medications Administered Current Inpatient Medications Acetaminophen (Acetaminophen 325 Mg Tab) 650 mg PO Q4H PRN PRN Reason: pain/fever Stop: 12/12/20 19:59 Last Admin: 11/13/20 08:46 Dose: 650 mg Documented by: Aspirin (Aspirin 81 Mg Ectab) 81 mg PO DAILY STAR Stop: 12/13/20 08:59 Last Admin: 11/15/20 08:44 Dose: 81 mg Documented by: Fluoxetine HCl (Fluoxetine Hcl 20 Mg Cap) 20 mg PO DAILY STAR Stop: 12/13/20 08:59 Last Admin: 11/15/20 08:44 Dose: 20 mg Documented by: Heparin Sodium (Porcine) (Heparin Sod 5,000 Unit/0.5 Ml Vial) 5,000 units SQ Q12 STAR Stop: 12/12/20 20:59 Last Admin: 11/15/20 08:44 Dose: 5,000 units Documented by: Metronidazole (Flagyl) 500 mg in 100 mls @ 100 mls/hr IV Q8H STAR Stop: 11/22/20 19:59 Last Infusion: 11/15/20 05:04 Dose: Infused Documented by: Ciprofloxacin (Cipro / D5w) 400 mg in 200 mls @ 100 mls/hr IV Q12H STAR Stop: 11/25/20 09:29 Last Admin: 11/15/20 10:26 Dose: 100 mls/hr Documented by: Metoprolol Tartrate (Metoprolol Tartrate 25 Mg Tab) 25 mg PO BID STAR Stop: 12/12/20 20:59 Last Admin: 11/15/20 08:44 Dose: 25 mg Documented by: Miscellaneous (Fluocinolone~Order Awaiting Action) 1 ea N/A QS [facility] Stop: 12/13/20 00:00 Last Admin: 11/15/20 08:20 Dose: Not Given Documented by: Morphine Sulfate (Morphine Sulfate 2 Mg/Ml Carp) 2 mg IV Q4 PRN PRN Reason: Pain Stop: 11/26/20 20:06 Last Admin: 11/13/20 09:53 Dose: 2 mg Documented by: Multivitamins (Multivitamin Tab) 1 tab PO DAILY [facility] Stop: 12/13/20 08:59 Last Admin: 11/15/20 08:44 Dose: 1 tab Documented by: Nitroglycerin (Nitroglycerin Sl 0.4 Mg/Tab Tab) 0.4 mg SL UD PRN PRN Reason: Chest Pain Stop: 12/12/20 19:59 Pantoprazole Sodium (Pantoprazole 40 Mg Tab) 40 mg PO DAILY STAR Stop: 12/13/20 08:59 Last Admin: 11/15/20 08:44 Dose: 40 mg Documented by: Polyethylene Glycol (Polyethylene (Miralax) 17 Gm Pack) 17 gm PO DAILY PRN PRN Reason: Constipation Stop: 12/12/20 19:59 Potassium Chloride (Potassium Chloride 20 Meq/15 Ml Udc) 40 meq PO TID STAR Stop: 12/13/20 08:59 Last Admin: 11/15/20 08:43 Dose: 40 meq Documented by: Temazepam (Temazepam 7.5 Mg Capsule) 7.5 mg PO HS STAR Stop: 12/12/20 20:59 Last Admin: 11/14/20 20:54 Dose: 7.5 mg Documented by:
== END 2020-11-15 14:35 | disposition home or self-care (01) ==
LOC: ED 10:12 → 3E 16:18 → SUATTDRO 16:18 → INTOOBSV 16:18 → 3E 19:07

== ENCOUNTER 2023-05-14 17:08 | Inpatient (IN) ==
[2023-05-14] MEDS ORDERED: KETOROLAC TROMETHAMINE 15 MG/ML VIAL IV STA (17:24)
[2023-05-14] MEDS ORDERED: ONDANSETRON INJ 2 MG/ML 2 ML VIAL IV STA (17:24)
[2023-05-14 18:06] LABS: Basophils # (auto) 0.06 K/uL (0.00-0.20); Basophils % (auto) 0.6 %; Eosinophils # (auto) 0.03 K/uL (0.00-0.50); Eosinophils % (auto) 0.3 %; Hematocrit (blood only) 41.8 % (37.0-47.0); Hemoglobin 13.7 g/dl (12.0-16.0); Immature Granulocytes # (auto) 0.02 K/uL (0.01-0.20); Immature Granulocytes % (auto) 0.2 %; Lymphocytes # (auto) 2.59 K/uL (1.20-3.40); Lymphocytes % (auto) 26.7 %; Mean Corpuscular Hemoglobin 25.9 pg (25.0-34.0); Mean Corpuscular Hgb Conc 32.8 g/dL (32.0-36.0); Mean Platelet Volume 9.2 fL (9.4-12.4); Monocytes # (auto) 0.56 K/uL (0.11-0.59); Monocytes % (auto) 5.8 %; Neutrophils # (auto) 6.44 K/uL (1.40-6.50); Neutrophils % (auto) 66.4 %; Platelet Count 463 K/uL (130-400); RDW Coefficient of Variation 15.6 % (11.5-14.5); RDW Standard Deviation 44.3 fL (36.4-46.3); Red Blood Count 5.29 M/uL (4.20-5.40)
[2023-05-14 18:09] LABS: Appearance Urine Clear (Clear); Bacteria Urine Automated Negative (Negative); Bilirubin Urine Negative (Negative); Blood Urine Negative (Negative); Color Urine Dark Yellow; Epithelial Cell Urine Auto >30 /lpf (0-5); Glucose Urine UA Negative (Negative); Ketones Urine 1+ (Negative); Leukocyte Esterase Urine Negative (Negative); Nitrite Urine Negative (Negative); Protein Urine 1+ (Negative); RBC Urine Automated 0-4 /hpf (0-4); Specific Gravity Urine 1.033 (1.000-1.030); Urobilinogen Urine Negative (Negative)
--- NOTE | 2023-05-14 18:12 | Emergency Department Note ---
Impression & Plan Deep right inguinal pain, Acute pain of right hip ED Provider Note Provider: Lakhwinder Rojas MD DATE OF SERVICE: 05/14/2023 CHIEF COMPLAINT: Right flank pain, slight dizziness HISTORY OF PRESENT ILLNESS: Patient is a 83-year-old female past medical history of CAD, diverticulitis, GI bleed and iron deficiency anemia presenting here today reporting that right flank pain. She states pain has been present for 6 days and denies any trauma. Pain predominantly the right hip and to the right lower quadrant. Radiates to just upper thigh but not more distally. No sciatica shooting pain. No numbness in the leg. Pain worse with touch in the right lower quadrant right hip region and movement of the right hip as well as putting pressure on the right leg. Denies upper abdominal pain or left-sided abdominal pain. Denies chest pain or shortness of breath. Nuys palpitations. Reports maybe a little bit of dizziness. No fevers. History of abdominal surgery including anal hernia and cholecystectomy. Does still have her appendix. Denies urinary symptoms. Moving her bowel but decreased appetite. Has been using some Tylenol PM at home for pain. Some nausea and dry heaves today. No rash reported PAST MEDICAL HISTORY: As noted above MEDICATIONS: Reviewed home medication list SOCIAL HISTORY: Non-smoker PHYSICAL EXAM: GENERAL: alert and oriented in no acute distress seated in stretcher Head: normocephalic and atraumatic EYES: No injection, discharge or icterus. NECK: Trachea midline. ENT: Mucous membranes pink and moist. LUNGS: Airway patent. No retractions. Breath sounds clear with good air entry bilaterally. HEART: Regular rate and rhythm. No chest wall tenderness ABDOMEN: Soft without left-sided pain or tenderness but significant tenderness in the right lower quadrant. SKIN: Acyanotic, warm, dry, without rashes EXTREMITIES: Without swelling, tenderness or deformity however pain with ROM of the right hip and some tenderness into the right inguinal region. NEUROLOGICAL: No focal deficits. No aphasia. No facial droop or slurred speech. Gross sensation and tact in the right lower extremity of the foot or leg. EK beats. Normal sinus rhythm. No PVC or PAC. No acute ST segment elevation or depression. QTc 428. Patient's laboratory studies and imaging reviewed. Differential includes Appendicitis, infections, diverticulitis, UTI, obstruction, mesenteric ischemia, aortic pathology, inflammatory bowel disease, renal colic, PUD, pancreatitis, biliary pathology, hernia, volvulus, constipation, hip injury, bony injury, sciatica, as well as other pathologies. IMPRESSION/MEDICAL DECISION MAKING: Patient history of GI surgeries as well as diverticulitis now with pain predominantly in the right lower quadrant right hip region. No significant trauma. Able to range the hip and lower suspicion for dislocation but question possible appendicitis or injury to the pelvis or hip. No significant left-sided abdominal tenderness. No fevers reported. Normal white blood cell count. No significant findings on urinalysis indicative of infection denies significant urinary symptoms. Little bit dizziness likely more related to the pain. Bit of dry heaving and nausea likely related the pain. Given some Zofran which is helping with the nausea as well as some Toradol here. Some sensitivities to medications. Will send for CT scan to further delineate etiology of her complaints. Given a small dose of morphine given her sensitivity to narcotics to help with the pain is discontinued. Troponin here and EKG reassuring. Unfortunately due to volume in the emergency department to take several hours for her to get a CT scan. This was completed and radiology report showed prior right colon resection with diverticulosis but no diverticulitis. No evidence of free air bowel obstruction. No significant fractures noted with some degenerative arthritic changes of the bones. Discussed with the patient. Question if this is more related to the hip itself. Given her lack of infectious symptoms low suspicion this is infected. Patient has improvement of her pain but with movement she is still in a fair amount of pain. Again does not tolerate narcotics well and has significant concerns about her ability to go home and be able to ambulate and get ADLs such as even using the bathroom done. Believe likely more orthopedic in nature but at this time given her age and comorbidities with her ambulatory dysfunction she wished for observation and the hospitalist was contacted. At I doubt this represents cauda equina. DIAGNOSIS: Right hip and groin pain DISPOSITION: Hospitalist will evaluate Patient was agreeable with this plan. 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" Surgical History H/O dilation and curettage History of oophorectomy, unilateral Hx of tubal ligation S/P anal fissurectomy S/P cholecystectomy S/P repair of paraesophageal hernia Social History Smoking Status: Never smoker Hx Alcohol Use: Yes Alcohol type: wine Hx Substance Use: No Preferred Language: Tamaz[place] Communication Ability: Effective Shank Piece Tacker Required: No Beliefs That Will Affect Care: None marital status: Single Current Living Situation: Alone Feels Safe at Home: Yes Assistive Devices: Walker Allergies Allergies Allergy/AdvReac Type Severity Reaction Status Date / Time hydrocodone Allergy Unknown Confusion Verified 05/14/23 23:05 Macrolide Antibiotics Allergy Unknown ALLERGIC Verified 11/08/20 15:55 TO "MYCINS" Penicillins Allergy Unknown HIVES Verified 05/14/23 23:03 Sulfa (Sulfonamide Allergy Unknown HIVES Verified 05/14/23 23:03 Antibiotics) lisinopril AdvReac Unknown cough Verified 05/14/23 23:03 Home Meds Home Medications Medication Instructions Recorded Confirmed aspirin 81 mg tablet,delayed 81 mg PO DAILY 11/08/20 05/14/23 release (Prabha Low Dose Aspirin) nitroglycerin 0.4 mg sublingual 0.4 mg sublingual UD PRN Chest Pain 11/08/20 05/14/23 tablet betamethasone dipropionate 0.05 % 1 applic topical BID 05/14/23 05/14/23 lotion lorazepam 0.5 mg tablet 0.5 mg PO BID PRN Anxiety 05/14/23 05/14/23 Results & Data (ED) Vital Signs Vital Signs - 24 hr 05/14/23 17:12 05/14/23 20:08 05/14/23 22:08 Temperature 35.9 C L Temperature Source Temporal Artery Scan Pulse Rate 95 H Pulse Rate [Apical] 68 63 Respiratory Rate 19 20 20 Respiratory Effort / Characteristics Non-Labored Spontaneous Non-Labored Respiratory Depth Normal Normal Blood Pressure 144/90 H Blood Pressure [Right Arm] 110/68 148/81 H Blood Pressure Mean 108 Blood Pressure Mean [Right Arm] 82 103 Blood Pressure Position [Right Arm] Semi-fowlers Pulse Oximetry 100 96 96 Oxygen Delivery Method Room Air Room Air Room Air Sepsis Recent Fever Within 48 Hours No Sepsis New/Unexplained Change in Mental Status N/A Sepsis Action Taken by Nursing No Action Required 05/15/23 00:00 Temperature Temperature Source Pulse Rate Pulse Rate [Apical] 76 Respiratory Rate 20 Respiratory Effort / Characteristics Respiratory Depth Blood Pressure Blood Pressure [Right Arm] 149/81 H Blood Pressure Mean Blood Pressure Mean [Right Arm] 103 Blood Pressure Position [Right Arm] Semi-fowlers Pulse Oximetry 93 Oxygen Delivery Method Room Air Sepsis Recent Fever Within 48 Hours Sepsis New/Unexplained Change in Mental Status Sepsis Action Taken by Nursing Laboratory Data 05/14/23 17:33 05/14/23 17:33 Lab Results 05/14/23 05/14/23 05/14/23 Range/Units 17:33 17:33 Unknown WBC 9.70 (4.8-10.8) K/ul RBC 5.29 (4.20-5.40) M/uL Hgb 13.7 (12.0-16.0) g/dl Hct 41.8 (37.0-47.0) % MCV 79.0 L (80.0-100.0) fL MCH 25.9 (25.0-34.0) pg MCHC 32.8 (32.0-36.0) g/dL RDW Std Deviation 44.3 (36.4-46.3) fL RDW Coeff of Jamar 15.6 H (11.5-14.5) % Plt Count 463 H (130-400) K/uL MPV 9.2 L (9.4-12.4) fL Immature Gran % (Auto) 0.2 % Neut % (Auto) 66.4 % Lymph % (Auto) 26.7 % [place] % (Auto) 5.8 % Eos % (Auto) 0.3 % Baso % (Auto) 0.6 % Neut # (Auto) 6.44 (1.40-6.50) K/uL Lymph # (Auto) 2.59 (1.20-3.40) K/uL [place] # (Auto) 0.56 (0.11-0.59) K/uL Eos # (Auto) 0.03 (0.00-0.50) K/uL Baso # (Auto) 0.06 (0.00-0.20) K/uL Immature Gran # (Auto) 0.02 (0.01-0.20) K/uL Sodium 140 (136-145) mmol/L Potassium 3.9 (3.5-5.1) mmol/L Chloride 104 (98-107) mmol/L Carbon Dioxide 25 (21-32) mmol/L Anion Gap 11 (3-11) BUN 22 (6-23) mg/dl Creatinine 0.76 (0.6-1.2) mg/dl Est Cr Clr Drug Dosing Not Reportable Est GFR ( Amer) 84.7 ml/min Est GFR (Non-Af Amer) 73.1 ml/min BUN/Creatinine Ratio 28.9 H (10-20) Glucose 93 (70-99(Fasting)) mg/dl Calcium 10.1 (8.6-10.3) mg/dl Total Bilirubin 0.5 (0.2-1.0) mg/dl AST 18 (13-39) U/L ALT 19 (7-52) U/L Alkaline Phosphatase 78 (34-104) U/L Troponin I High Sens 4.1 (0-14) pg/ml Total Protein 9.0 H (6.0-8.3) gm/dl Albumin 4.7 (3.4-5.0) gm/dl Globulin 4.3 H (2.5-4.0) gm/dl Albumin/Globulin Ratio 1.1 (0.9-2) Lipase 16 (11-82) U/L Urine Color Dark Yellow Urine Appearance Clear (Clear) Urine pH 5.0 (4.5-7.5) Ur Specific [place] 1.033 H (1.000-1.030) Urine Protein 1+ H (Negative) Urine Glucose (UA) Negative (Negative) Urine Ketones 1+ H (Negative) Urine Blood Negative (Negative) Urine Nitrite Negative (Negative) Urine Bilirubin Negative (Negative) Urine Urobilinogen Negative (Negative) Ur Leukocyte Esterase Negative (Negative) Urine WBC (Auto) 1-5 (0-5) /hpf Urine RBC (Auto) 0-4 (0-4) /hpf U Hyaline Cast (Auto) 1-5 (0-5) /lpf U Epithel Cells (Auto) >30 H (0-5) /lpf Urine Bacteria (Auto) Negative (Negative) Administered Medications Morphine Sulfate (Morphine Sulfate 2 Mg/Ml Carp) 2 mg IV Q3H PRN PRN Reason: Pain Stop: 05/29/23 00:02 Last Admin: 05/15/23 00:38 Dose: 2 mg Documented By: AB Discontinued Medications Sodium Chloride (Nss) 500 mls @ 999 mls/hr IV .Q31M ONE Stop: 05/14/23 18:51 Last Infusion: 05/14/23 22:07 Dose: 0 mls/hr Documented By: Admin: 05/14/23 20:19 Dose: 999 mls/hr Documented By: AB Ioversol (Optiray 320 100ml) 94 ml IV ONCE ONE Stop: 05/14/23 21:45 Last Admin: 05/14/23 21:56 Dose: 94 ml Documented By: SYDNEY Ketorolac Tromethamine (Ketorolac Tromethamine 15 Mg/Ml Vial) 15 mg IV ONE STA Stop: 05/14/23 17:25 Last Admin: 05/14/23 17:31 Dose: 15 mg Documented By: MISTY Morphine Sulfate (Morphine Sulfate 2 Mg/Ml Carp) 2 mg IV NOW STA Stop: 05/14/23 20:47 Last Admin: 05/14/23 20:50 Dose: 2 mg Documented By: Ondansetron HCl (Ondansetron Inj 2 Mg/Ml 2 Ml Vial) 4 mg IV NOW STA Stop: 05/14/23 17:25 Last Admin: 05/14/23 17:31 Dose: 4 mg Documented By: MISTY Imaging Data Radiologist's Impression: Abdomen/Pelvis CT 05/14/23 18:21 Exam(s): CT ABDOMEN + PELVIS With Contrast IV Amt: 94 ml opti 320 EXAM: CT Abdomen and Pelvis With Intravenous Contrast CLINICAL HISTORY: Reason for exam: RLQ to R hip pain. TECHNIQUE: Axial computed tomography images of the abdomen and pelvis with intravenous contrast. CTDI is 13.04 mGy and DLP is 617.85 mGy-cm. Automated exposure control was utilized for the study. A dose lowering technique was utilized adhering to the principles of ALARA. CONTRAST: Patient received 94 ml opti 320 of IV contrast COMPARISON: No relevant prior studies available. FINDINGS: Lung bases: Unremarkable. No mass. No consolidation. ABDOMEN: Liver: Unremarkable. No mass. Gallbladder and bile ducts: Unremarkable. No calcified stones. No ductal dilation. Pancreas: Unremarkable. No mass. No ductal dilation. Spleen: Unremarkable. No splenomegaly. Adrenals: Unremarkable. No mass. Kidneys and ureters: Bilateral parapelvic cysts. No hydronephrosis. Stomach and bowel: Partial right colon resection. Diverticulosis, without acute diverticulitis. No small bowel obstruction. No free intraperitoneal air. PELVIS: Appendix: No findings to suggest acute appendicitis. Bladder: Unremarkable. No mass. Reproductive: Unremarkable as visualized. ABDOMEN and PELVIS: Intraperitoneal space: Unremarkable. No free air. No significant fluid collection. Bones/joints: Degenerative changes of the spine. Grade 1 anterolisthesis of L5 on S1. No acute fracture. No dislocation. Soft tissues: Unremarkable. Vasculature: Atherosclerotic changes of the aorta. No abdominal aortic aneurysm. Lymph nodes: Unremarkable. No enlarged lymph nodes. IMPRESSION: 1. Partial right colon resection. 2. Diverticulosis, without acute diverticulitis. No small bowel obstruction. No free intraperitoneal air. Electronically signed by: Nicholas Gómez MD 05/14/23 22:[address] 05/15/23 00:00 Exam(s): CT L SPINE With Contrast IV Amt: 94 ml optiray 320 EXAM: CT Lumbar Spine With Intravenous Contrast CLINICAL HISTORY: Reason for exam: back pain. TECHNIQUE: Axial computed tomography images of the lumbar spine with intravenous contrast. CTDI is 13.04 mGy and DLP is 617.85 mGy-cm. Automated exposure control was utilized for the study. A dose lowering technique was utilized adhering to the principles of ALARA. CONTRAST: Patient received 94 ml optiray 320 of IV contrast COMPARISON: No relevant prior studies available. FINDINGS: The vertebral body heights are maintained. The lumbar lordosis is preserved. Grade 1 anterolisthesis of L5 on S1 measures 7 mm. The posterior elements are maintained, without evidence of acute fracture. The pedicles are intact. Multilevel lumbar spondylosis and degenerative disc disease. IMPRESSION: No lumbar spine fracture. Grade 1 anterolisthesis of L5 on S1 measures 7 mm. Electronically signed by: Nicholas Gómez MD 05/15/23 00:31 AM Discharge Plan Visit Data Chief Complaint: Flank Pain Stated Complaint: BACK AND RT SIDE PAIN ED Provider: Lakhwinder Rojas Discharge Problem: Deep right inguinal pain, Acute pain of right hip Patient Disposition: Being Evaluated by Hospitalist Forms Stand Alone Forms: [facility] Prescriptions Prescriptions: No Action aspirin [Prabha Low Dose Aspirin] 81 mg Tablet,Delayed Release (Dr/Ec) 81 mg PO DAILY nitroglycerin 0.4 mg Tablet, Sublingual 0.4 mg sublingual UD PRN (Reason: Chest Pain) lorazepam 0.5 mg tablet 0.5 mg PO BID PRN (Reason: Anxiety) betamethasone dipropionate 0.05 % lotion 1 applic TOPICAL BID Rx Instructions: APPLY TO SCALP, NEEDED, FOR FLARES. TAPER FREQUENTLY WITH IMPROVEMENT. Referrals Referrals: Bruce Sheridan, [Primary Care Provider] -
[2023-05-14] MEDS ORDERED: SODIUM CHLORIDE 0.9% 500 ML IV ONE (18:21)
[2023-05-14 18:23] LABS: Alanine Aminotransferase 19 U/L (7-52); Albumin Globulin Ratio 1.1 (0.9-2); Albumin Level 4.7 gm/dl (3.4-5.0); Alkaline Phosphatase 78 U/L (34-104); Anion Gap 11 (3-11); Aspartate Aminotransferase 18 U/L (13-39); BUN Creatinine Ratio 28.9 (10-20); Bilirubin,Total 0.5 mg/dl (0.2-1.0); Blood Urea Nitrogen 22 mg/dl (6-23); Calcium 10.1 mg/dl (8.6-10.3); Carbon Dioxide 25 mmol/L (21-32); Chloride 104 mmol/L (98-107); Est GFR (African American) 84.7 ml/min; Est GFR (Non-African American) 73.1 ml/min; Globulin 4.3 gm/dl (2.5-4.0); Glucose 93 mg/dl (70-99(Fasting)); Lipase 16 U/L (11-82); Potassium 3.9 mmol/L (3.5-5.1); Sodium 140 mmol/L (136-145)
[2023-05-14 20:38] LABS: Troponin I High Sensitivity 4.1 pg/ml (0-14)
[2023-05-14] MEDS ORDERED: MoRPHine SULFATE 2 MG/ML CARP IV STA (20:46)
[2023-05-14] MEDS ORDERED: OPTIRAY 320 100ml IV ONE (21:44)
--- NOTE | 2023-05-14 22:31 | CT Scan Report ---
Exam(s): CT ABDOMEN + PELVIS With Contrast IV Amt: 94 ml opti 320 EXAM: CT Abdomen and Pelvis With Intravenous Contrast CLINICAL HISTORY: Reason for exam: RLQ to R hip pain. TECHNIQUE: Axial computed tomography images of the abdomen and pelvis with intravenous contrast. CTDI is 13.04 mGy and DLP is 617.85 mGy-cm. Automated exposure control was utilized for the study. A dose lowering technique was utilized adhering to the principles of ALARA. CONTRAST: Patient received 94 ml opti 320 of IV contrast COMPARISON: No relevant prior studies available. FINDINGS: Lung bases: Unremarkable. No mass. No consolidation. ABDOMEN: Liver: Unremarkable. No mass. Gallbladder and bile ducts: Unremarkable. No calcified stones. No ductal dilation. Pancreas: Unremarkable. No mass. No ductal dilation. Spleen: Unremarkable. No splenomegaly. Adrenals: Unremarkable. No mass. Kidneys and ureters: Bilateral parapelvic cysts. No hydronephrosis. Stomach and bowel: Partial right colon resection. Diverticulosis, without acute diverticulitis. No small bowel obstruction. No free intraperitoneal air. PELVIS: Appendix: No findings to suggest acute appendicitis. Bladder: Unremarkable. No mass. Reproductive: Unremarkable as visualized. ABDOMEN and PELVIS: Intraperitoneal space: Unremarkable. No free air. No significant fluid collection. Bones/joints: Degenerative changes of the spine. Grade 1 anterolisthesis of L5 on S1. No acute fracture. No dislocation. Soft tissues: Unremarkable. Vasculature: Atherosclerotic changes of the aorta. No abdominal aortic aneurysm. Lymph nodes: Unremarkable. No enlarged lymph nodes. IMPRESSION: 1. Partial right colon resection. 2. Diverticulosis, without acute diverticulitis. No small bowel obstruction. No free intraperitoneal air. Electronically signed by: Nicholas Gómez MD 05/14/23 22:30 PM
--- NOTE | 2023-05-15 | History & Physical Report ---
Date of Service May 14, 2023 History of Present Illness Primary Care Provider: Bruce Sheridan DO Allergies Allergy/AdvReac Type Severity Reaction Status Date / Time hydrocodone Allergy Unknown Confusion Verified 05/14/23 23:05 Macrolide Antibiotics Allergy Unknown ALLERGIC Verified 11/08/20 15:55 TO "MYCINS" Penicillins Allergy Unknown HIVES Verified 05/14/23 23:03 Sulfa (Sulfonamide Allergy Unknown HIVES Verified 05/14/23 23:03 Antibiotics) lisinopril AdvReac Unknown cough Verified 05/14/23 23:03 Home Medications Medication Instructions Recorded Confirmed Type aspirin 81 mg tablet,delayed 81 mg PO DAILY 11/08/20 05/14/23 History release (Prabha Low Dose Aspirin) nitroglycerin 0.4 mg sublingual 0.4 mg sublingual UD PRN Chest Pain 11/08/20 05/14/23 History tablet betamethasone dipropionate 0.05 % 1 applic topical BID 05/14/23 05/14/23 History lotion lorazepam 0.5 mg tablet 0.5 mg PO BID PRN Anxiety 05/14/23 05/14/23 History Past Med/Surg History Medical History CAD (coronary artery disease) "06/2011 - inferior STEMI s/p aspiration thrombectomy to LCX with 2 KAYY and KAYY to RCA" On 01/24/14 13:30 Oneida Arroyo wrote "MS 06/2011, 2 KAYY to the circumflex, 1 KAYY to the RCA echo 11/2013 showed EF 60-65%, mild mitral regurgitation " 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" Surgical History H/O dilation and curettage History of oophorectomy, unilateral Hx of tubal ligation S/P anal fissurectomy S/P cholecystectomy S/P repair of paraesophageal hernia Social History Smoking Status: Never smoker Hx Alcohol Use: Yes Alcohol type: wine Hx Substance Use: No Preferred Language: Bengali Communication Ability: Effective Enrolled Agent Required: No Beliefs That Will Affect Care: None marital status: Single Current Living Situation: Alone Feels Safe at Home: Yes Assistive Devices: Walker Results & Data Results & Data Vital Signs (Past 12 Hours) Vital Signs Temp Pulse Pulse Resp BP BP Pulse Ox 05/14/23 22:08 63 20 148/81 H 96 05/14/23 20:08 68 20 110/68 96 05/14/23 17:12 35.9 C L 95 H 19 144/90 H 100 O2 Del Method 05/14/23 22:08 Room Air 05/14/23 20:08 Room Air 05/14/23 17:12 Room Air Laboratory Results Laboratory Results WBC 9.70 K/ul (4.8-10.8) 05/14/23 17:33 RBC 5.29 M/uL (4.20-5.40) 05/14/23 17:33 Hgb 13.7 g/dl (12.0-16.0) 05/14/23 17:33 Hct 41.8 % (37.0-47.0) 05/14/23 17:33 MCV 79.0 fL (80.0-100.0) L 05/14/23 17:33 MCH 25.9 pg (25.0-34.0) 05/14/23 17:33 MCHC 32.8 g/dL (32.0-36.0) 05/14/23 17:33 RDW Std Deviation 44.3 fL (36.4-46.3) 05/14/23 17:33 RDW Coeff of Jamar 15.6 % (11.5-14.5) H 05/14/23 17:33 Plt Count 463 K/uL (130-400) H 05/14/23 17:33 MPV 9.2 fL (9.4-12.4) L 05/14/23 17:33 Immature Gran % (Auto) 0.2 % 05/14/23 17:33 Neut % (Auto) 66.4 % 05/14/23 17:33 Lymph % (Auto) 26.7 % 05/14/23 17:33 [place] % (Auto) 5.8 % 05/14/23 17:33 Eos % (Auto) 0.3 % 05/14/23 17:33 Baso % (Auto) 0.6 % 05/14/23 17:33 Neut # (Auto) 6.44 K/uL (1.40-6.50) 05/14/23 17:33 Lymph # (Auto) 2.59 K/uL (1.20-3.40) 05/14/23 17:33 [place] # (Auto) 0.56 K/uL (0.11-0.59) 05/14/23 17:33 Eos # (Auto) 0.03 K/uL (0.00-0.50) 05/14/23 17:33 Baso # (Auto) 0.06 K/uL (0.00-0.20) 05/14/23 17:33 Immature Gran # (Auto) 0.02 K/uL (0.01-0.20) 05/14/23 17:33 Sodium 140 mmol/L (136-145) 05/14/23 17:33 Potassium 3.9 mmol/L (3.5-5.1) 05/14/23 17:33 Chloride 104 mmol/L (98-107) 05/14/23 17:33 Carbon Dioxide 25 mmol/L (21-32) 05/14/23 17:33 Anion Gap 11 (3-11) 05/14/23 17:33 BUN 22 mg/dl (6-23) 05/14/23 17:33 Creatinine 0.76 mg/dl (0.6-1.2) 05/14/23 17:33 Est Cr Clr Drug Dosing Not Reportable 05/14/23 17:33 Est GFR ( Amer) 84.7 ml/min 05/14/23 17:33 Est GFR (Non-Af Amer) 73.1 ml/min 05/14/23 17:33 BUN/Creatinine Ratio 28.9 (10-20) H 05/14/23 17:33 Glucose 93 mg/dl (70-99(Fasting)) 05/14/23 17:33 Calcium 10.1 mg/dl (8.6-10.3) 05/14/23 17:33 Total Bilirubin 0.5 mg/dl (0.2-1.0) 05/14/23 17:33 AST 18 U/L (13-39) 05/14/23 17:33 ALT 19 U/L (7-52) 05/14/23 17:33 Alkaline Phosphatase 78 U/L (34-104) 05/14/23 17:33 Troponin I High Sens 4.1 pg/ml (0-14) 05/14/23 17:33 Total Protein 9.0 gm/dl (6.0-8.3) H 05/14/23 17:33 Albumin 4.7 gm/dl (3.4-5.0) 05/14/23 17:33 Globulin 4.3 gm/dl (2.5-4.0) H 05/14/23 17:33 Albumin/Globulin Ratio 1.1 (0.9-2) 05/14/23 17:33 Lipase 16 U/L (11-82) 05/14/23 17:33 Urine Color Dark Yellow 05/14/23 Unknown Urine Appearance Clear (Clear) 05/14/23 Unknown Urine pH 5.0 (4.5-7.5) 05/14/23 Unknown Ur Specific [place] 1.033 (1.000-1.030) H 05/14/23 Unknown Urine Protein 1+ (Negative) H 05/14/23 Unknown Urine Glucose (UA) Negative (Negative) 05/14/23 Unknown Urine Ketones 1+ (Negative) H 05/14/23 Unknown Urine Blood Negative (Negative) 05/14/23 Unknown Urine Nitrite Negative (Negative) 05/14/23 Unknown Urine Bilirubin Negative (Negative) 05/14/23 Unknown Urine Urobilinogen Negative (Negative) 05/14/23 Unknown Ur Leukocyte Esterase Negative (Negative) 05/14/23 Unknown Urine WBC (Auto) 1-5 /hpf (0-5) 05/14/23 Unknown Urine RBC (Auto) 0-4 /hpf (0-4) 05/14/23 Unknown U Hyaline Cast (Auto) 1-5 /lpf (0-5) 05/14/23 Unknown U Epithel Cells (Auto) >30 /lpf (0-5) H 05/14/23 Unknown Urine Bacteria (Auto) Negative (Negative) 05/14/23 Unknown Impressions Abdomen/Pelvis CT 05/14/23 18:21 Exam(s): CT ABDOMEN + PELVIS With Contrast IV Amt: 94 ml opti 320 EXAM: CT Abdomen and Pelvis With Intravenous Contrast CLINICAL HISTORY: Reason for exam: RLQ to R hip pain. TECHNIQUE: Axial computed tomography images of the abdomen and pelvis with intravenous contrast. CTDI is 13.04 mGy and DLP is 617.85 mGy-cm. Automated exposure control was utilized for the study. A dose lowering technique was utilized adhering to the principles of ALARA. CONTRAST: Patient received 94 ml opti 320 of IV contrast COMPARISON: No relevant prior studies available. FINDINGS: Lung bases: Unremarkable. No mass. No consolidation. ABDOMEN: Liver: Unremarkable. No mass. Gallbladder and bile ducts: Unremarkable. No calcified stones. No ductal dilation. Pancreas: Unremarkable. No mass. No ductal dilation. Spleen: Unremarkable. No splenomegaly. Adrenals: Unremarkable. No mass. Kidneys and ureters: Bilateral parapelvic cysts. No hydronephrosis. Stomach and bowel: Partial right colon resection. Diverticulosis, without acute diverticulitis. No small bowel obstruction. No free intraperitoneal air. PELVIS: Appendix: No findings to suggest acute appendicitis. Bladder: Unremarkable. No mass. Reproductive: Unremarkable as visualized. ABDOMEN and PELVIS: Intraperitoneal space: Unremarkable. No free air. No significant fluid collection. Bones/joints: Degenerative changes of the spine. Grade 1 anterolisthesis of L5 on S1. No acute fracture. No dislocation. Soft tissues: Unremarkable. Vasculature: Atherosclerotic changes of the aorta. No abdominal aortic aneurysm. Lymph nodes: Unremarkable. No enlarged lymph nodes. IMPRESSION: 1. Partial right colon resection. 2. Diverticulosis, without acute diverticulitis. No small bowel obstruction. No free intraperitoneal air. Electronically signed by: Nicholas Gómez MD 05/14/23 22:30 PM
[2023-05-15] MEDS ORDERED: ACETAMINOPHEN 325 MG TAB PO PRN (00:03)
[2023-05-15] MEDS ORDERED: PROMETHAZINE HCL 6.25 MG in SODIUM CHLORIDE 0.9% 50 ML IV PRN (00:03)
[2023-05-15] MEDS ORDERED: traMADol HCL 50 MG TABLET PO PRN (00:03)
--- NOTE | 2023-05-15 00:09 | History & Physical Report ---
Date of Service May 15, 2023 Assessment & Plan (1) Lumbar radiculopathy: Plan: Grade 1 anterolisthesis of L5 on S1 measures [address] CAD status post stent hypertension, slightly elevated prediabetes, hemoglobin A1c of 5.19 July 2020 colon cancer status post surgery anxiety/mood disorder, stable past tobacco abuse OBS [facility] spine consult Re: Lumbar radiculopathy Hold patient aspirin until patient seen by Orthopedics DVT prophylaxis. SCDs Re: Possible procedure Full code Patient daughter requesting updates from provider. Ms. Stacy Nayak, contact #[phone]. Text document was generated using [employer] voice recognition software. It may contain grammatical or spelling errors. Kindly contact undersigned for clarification of any documentation item in question. History of Present Illness Chief Complaint: Back pain/right lower quadrant pain Primary Care Provider: Bruce Sheridan DO History obtained from patient, family, and records. Medical history significant for CAD status post stent (2010), hypertension, hyperlipidemia, prediabetes, colon cancer status post surgery anxiety/mood disorder, past tobacco abuse. Last confinement 2020 for sigmoid diverticulitis. 1 week history of achy right flank pain symptoms going to her groin and right thigh. No recollection of recent trauma. Similar to past episode of sciatica years ago. No fever, no chills. No unusual weight loss. No chest pain, no SOB. No unusual leg weakness or incontinence symptoms. Patient brought to ER by daughter. 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 Allergies Allergy/AdvReac Type Severity Reaction Status Date / Time hydrocodone Allergy Unknown Confusion Verified 05/14/23 23:05 Macrolide Antibiotics Allergy Unknown ALLERGIC Verified 11/08/20 15:55 TO "MYCINS" Penicillins Allergy Unknown HIVES Verified 05/14/23 23:03 Sulfa (Sulfonamide Allergy Unknown HIVES Verified 05/14/23 23:03 Antibiotics) lisinopril AdvReac Unknown cough Verified 05/14/23 23:03 Home Medications Medication Instructions Recorded Confirmed Type aspirin 81 mg tablet,delayed 81 mg PO DAILY 11/08/20 05/14/23 History release (Prabha Low Dose Aspirin) nitroglycerin 0.4 mg sublingual 0.4 mg sublingual UD PRN Chest Pain 11/08/20 05/14/23 History tablet betamethasone dipropionate 0.05 % 1 applic topical BID 05/14/23 05/14/23 History lotion lorazepam 0.5 mg tablet 0.5 mg PO BID PRN Anxiety 05/14/23 05/14/23 History Past Med/Surg History Medical History CAD (coronary artery disease) "06/2011 - inferior STEMI s/p aspiration thrombectomy to LCX with 2 KAYY and KAYY to RCA" On 01/24/14 13:30 Oneida Arroyo wrote "[place] 06/2011, 2 KAYY to the circumflex, 1 KAYY to the RCA echo 11/2013 showed EF 60-65%, mild mitral regurgitation " 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" Surgical History H/O dilation and curettage History of oophorectomy, unilateral Hx of tubal ligation S/P anal fissurectomy S/P cholecystectomy S/P repair of paraesophageal hernia Social History Smoking Status: Former smoker Tobacco Type: Cigarettes Second Hand Exposure: No; Do You Dip or Chew Tobacco: No; Tobacco Cessation Education Requested by Patient: No Hx Alcohol Use: Yes Alcohol type: wine Hx Substance Use: No Preferred Language: [place] Citizen Communication Ability: Effective Hvac Installer Required: No Beliefs That Will Affect Care: None marital status: Single Current Living Situation: Alone Other Information That Helps Us Care for You: No Feels Safe at Home: Yes Safety Concerns: Feels Safe At This Time Assistive Devices: Walker Review of Systems Review of Systems: As per HPI, all other systems reviewed and negative Physical Exam Physical Exam: GENERAL: Slightly uncomfortable, pleasant, no respiratory distress SKIN: Normal color, warm HEENT: [place] palpebral conjunctivae, no ptosis, moist buccal mucosa NECK : Supple, no tenderness CHEST : CTA, no tenderness HEART : RRR, no obvious murmurs ABDOMEN: Some distention, RLQ tenderness BACK : Low back tenderness, positive SLR right EXTREMITIES : No LE swelling/tenderness, no other conspicuous deformities noted NEUROLOGIC : Coherent, no facial asymmetry, no other gross focality Results & Data Results & Data Vital Signs (Past 12 Hours) Vital Signs Temp Pulse Pulse Resp BP BP Pulse Ox 05/14/23 22:08 63 20 148/81 H 96 05/14/23 20:08 68 20 110/68 96 05/14/23 17:12 35.9 C L 95 H 19 144/90 H 100 O2 Del Method 05/14/23 22:08 Room Air 05/14/23 20:08 Room Air 05/14/23 17:12 Room Air Laboratory Results Laboratory Results WBC 9.70 K/ul (4.8-10.8) 05/14/23 17:33 RBC 5.29 M/uL (4.20-5.40) 05/14/23 17:33 Hgb 13.7 g/dl (12.0-16.0) 05/14/23 17:33 Hct 41.8 % (37.0-47.0) 05/14/23 17:33 MCV 79.0 fL (80.0-100.0) L 05/14/23 17:33 MCH 25.9 pg (25.0-34.0) 05/14/23 17:33 MCHC 32.8 g/dL (32.0-36.0) 05/14/23 17:33 RDW Std Deviation 44.3 fL (36.4-46.3) 05/14/23 17:33 RDW Coeff of Jamar 15.6 % (11.5-14.5) H 05/14/23 17:33 Plt Count 463 K/uL (130-400) H 05/14/23 17:33 MPV 9.2 fL (9.4-12.4) L 05/14/23 17:33 Immature Gran % (Auto) 0.2 % 05/14/23 17:33 Neut % (Auto) 66.4 % 05/14/23 17:33 Lymph % (Auto) 26.7 % 05/14/23 17:33 [place] % (Auto) 5.8 % 05/14/23 17:33 Eos % (Auto) 0.3 % 05/14/23 17:33 Baso % (Auto) 0.6 % 05/14/23 17:33 Neut # (Auto) 6.44 K/uL (1.40-6.50) 05/14/23 17:33 Lymph # (Auto) 2.59 K/uL (1.20-3.40) 05/14/23 17:33 [place] # (Auto) 0.56 K/uL (0.11-0.59) 05/14/23 17: Eos # (Auto) 0.03 K/uL (0.00-0.50) 05/14/23 17:33 Baso # (Auto) 0.06 K/uL (0.00-0.20) 05/14/23 17: Immature Gran # (Auto) 0.02 K/uL (0.01-0.20) 05/14/23 17:33 Sodium 140 mmol/L (136-145) 05/14/23 17:33 Potassium 3.9 mmol/L (3.5-5.1) 05/14/23 17: Chloride 104 mmol/L (98-107) 05/14/23 17:33 Carbon Dioxide 25 mmol/L (21-32) 05/14/23 17:33 Anion Gap 11 (3-11) 05/14/23 17:33 BUN 22 mg/dl (6-23) 05/14/23 17:33 Creatinine 0.76 mg/dl (0.6-1.2) 05/14/23 17:33 Est Cr Clr Drug Dosing Not Reportable 05/14/23 17:33 Est GFR ( Amer) 84.7 ml/min 05/14/23 17:33 Est GFR (Non-Af Amer) 73.1 ml/min 05/14/23 17:33 BUN/Creatinine Ratio 28.9 (10-20) H 05/14/23 17:33 Glucose 93 mg/dl (70-99(Fasting)) 05/14/23 17:33 Calcium 10.1 mg/dl (8.6-10.3) 05/14/23 17:33 Total Bilirubin 0.5 mg/dl (0.2-1.0) 05/14/23 17:33 AST 18 U/L (13-39) 05/14/23 17:33 ALT 19 U/L (7-52) 05/14/23 17:33 Alkaline Phosphatase 78 U/L (34-104) 05/14/23 17:33 Troponin I High Sens 4.1 pg/ml (0-14) 05/14/23 17:33 Total Protein 9.0 gm/dl (6.0-8.3) H 05/14/23 17:33 Albumin 4.7 gm/dl (3.4-5.0) 05/14/23 17:33 Globulin 4.3 gm/dl (2.5-4.0) H 05/14/23 17:33 Albumin/Globulin Ratio 1.1 (0.9-2) 05/14/23 17:33 Lipase 16 U/L (11-82) 05/14/23 17:33 Urine Color Dark Yellow 05/14/23 Unknown Urine Appearance Clear (Clear) 05/14/23 Unknown Urine pH 5.0 (4.5-7.5) 05/14/23 Unknown Ur Specific [place] 1.033 (1.000-1.030) H 05/14/23 Unknown Urine Protein 1+ (Negative) H 05/14/23 Unknown Urine Glucose (UA) Negative (Negative) 05/14/23 Unknown Urine Ketones 1+ (Negative) H 05/14/23 Unknown Urine Blood Negative (Negative) 05/14/23 Unknown Urine Nitrite Negative (Negative) 05/14/23 Unknown Urine Bilirubin Negative (Negative) 05/14/23 Unknown Urine Urobilinogen Negative (Negative) 05/14/23 Unknown Ur Leukocyte Esterase Negative (Negative) 05/14/23 Unknown Urine WBC (Auto) 1-5 /hpf (0-5) 05/14/23 Unknown Urine RBC (Auto) 0-4 /hpf (0-4) 05/14/23 Unknown U Hyaline Cast (Auto) 1-5 /lpf (0-5) 05/14/23 Unknown U Epithel Cells (Auto) >30 /lpf (0-5) H 05/14/23 Unknown Urine Bacteria (Auto) Negative (Negative) 05/14/23 Unknown Impressions Abdomen/Pelvis CT 05/14/23 18:21 Exam(s): CT ABDOMEN + PELVIS With Contrast IV Amt: 94 ml opti 320 EXAM: CT Abdomen and Pelvis With Intravenous Contrast CLINICAL HISTORY: Reason for exam: RLQ to R hip pain. TECHNIQUE: Axial computed tomography images of the abdomen and pelvis with intravenous contrast. CTDI is 13.04 mGy and DLP is 617.85 mGy-cm. Automated exposure control was utilized for the study. A dose lowering technique was utilized adhering to the principles of ALARA. CONTRAST: Patient received 94 ml opti 320 of IV contrast COMPARISON: No relevant prior studies available. FINDINGS: Lung bases: Unremarkable. No mass. No consolidation. ABDOMEN: Liver: Unremarkable. No mass. Gallbladder and bile ducts: Unremarkable. No calcified stones. No ductal dilation. Pancreas: Unremarkable. No mass. No ductal dilation. Spleen: Unremarkable. No splenomegaly. Adrenals: Unremarkable. No mass. Kidneys and ureters: Bilateral parapelvic cysts. No hydronephrosis. Stomach and bowel: Partial right colon resection. Diverticulosis, without acute diverticulitis. No small bowel obstruction. No free intraperitoneal air. PELVIS: Appendix: No findings to suggest acute appendicitis. Bladder: Unremarkable. No mass. Reproductive: Unremarkable as visualized. ABDOMEN and PELVIS: Intraperitoneal space: Unremarkable. No free air. No significant fluid collection. Bones/joints: Degenerative changes of the spine. Grade 1 anterolisthesis of L5 on S1. No acute fracture. No dislocation. Soft tissues: Unremarkable. Vasculature: Atherosclerotic changes of the aorta. No abdominal aortic aneurysm. Lymph nodes: Unremarkable. No enlarged lymph nodes. IMPRESSION: 1. Partial right colon resection. 2. Diverticulosis, without acute diverticulitis. No small bowel obstruction. No free intraperitoneal air. Electronically signed by: Nicholas Gómez MD 05/14/23 22:[address] lumbar spine: No lumbar spine fracture. Grade 1 anterolisthesis of L5 on S1 measures 7 mm.
--- NOTE | 2023-05-15 00:32 | CT Scan Report ---
Exam(s): CT L SPINE With Contrast IV Amt: 94 ml optiray 320 EXAM: CT Lumbar Spine With Intravenous Contrast CLINICAL HISTORY: Reason for exam: back pain. TECHNIQUE: Axial computed tomography images of the lumbar spine with intravenous contrast. CTDI is 13.04 mGy and DLP is 617.85 mGy-cm. Automated exposure control was utilized for the study. A dose lowering technique was utilized adhering to the principles of ALARA. CONTRAST: Patient received 94 ml optiray 320 of IV contrast COMPARISON: No relevant prior studies available. FINDINGS: The vertebral body heights are maintained. The lumbar lordosis is preserved. Grade 1 anterolisthesis of L5 on S1 measures 7 mm. The posterior elements are maintained, without evidence of acute fracture. The pedicles are intact. Multilevel lumbar spondylosis and degenerative disc disease. IMPRESSION: No lumbar spine fracture. Grade 1 anterolisthesis of L5 on S1 measures 7 mm. Electronically signed by: Nicholas Gómez MD 05/15/23 00:31 AM
[2023-05-15] MEDS: MoRPHine SULFATE 2 MG/ML CARP IV PRN ×2 (00:38→05:59)
[2023-05-15] MEDS: LIDOCAINE 5% 1 PATCH TD SCH (08:17)
[2023-05-15] MEDS ORDERED: INFLUENZA VACCINE HIGH-DOSE (HD-IIV4) PF 65+ 0.7mL SYR IM ONE (09:00)
[2023-05-15] MEDS: LORazepam 0.5 MG TAB PO PRN (09:24)
--- NOTE | 2023-05-15 11:13 | Magnetic Resonance Report ---
MRI OF THE LUMBAR SPINE WITHOUT CONTRAST CLINICAL HISTORY: Severe right leg/buttock pain. COMPARISON STUDY: Lumbar spine CT May 14, 2023. TECHNIQUE: Utilizing a 1.5 Patricia magnet and dedicated coil, multiplanar, multiecho imaging of the [facility] spine was performed without IV contrast. FINDINGS: For purposes of numbering on this exam, the L5-S1 disc space is assigned to axial image 23 of 25. The re is an 8 mm of anterolisthesis of L5 on S1 due to severe facet arthrosis. There is mild levoscolios is of the upper lumbar spine and dextroscoliosis of the lower lumbar spine. Vertebral body heights ar e maintained. No marrow edema or marrow placement is present. There is no fracture. No intracanalicul ar mass or fluid collection is present. The conus terminates at the L1-L2 level. Paravertebral soft t issues are unremarkable. Severe multilevel facet arthrosis is present as well as moderate multilevel degenerative disc disease. L1-2: There is severe disc space narrowing. There is mild disc bulge with osteophyte formation. There is facet arthrosis. There is mild narrowing of the central canal and lateral recesses. There is mode rate narrowing of the right neural foramen. Left neural foramen is patent. L2-3: There is moderate disc space narrowing with disc bulge, facet arthrosis and ligamentous hypertr ophy. There is a superimposed left paracentral disc extrusion with inferior subligamentous migration. There is severe narrowing of the left lateral recess and moderate narrowing of the central canal. Th ere is moderate right and mild left neural foraminal stenosis. L3-4: There is severe facet arthrosis. A 7 mm x 4 mm intracanalicular synovial cyst arising from the right facet is noted. There is disc bulge. Findings result in moderate to severe central canal stenos is. Patent AP diameter of the canal is 4.8 mm. There is moderate narrowing of both lateral recesses a nd the left neural foramen. There is mild narrowing of the right neural foramen. L4-5: There is severe facet arthrosis with ligamentous hypertrophy. There is mild disc bulge. There i s mild to moderate narrowing of the central canal. Neural foramen are patent. L5-S1: Severe facet arthrosis results in anterolisthesis. There is mild uncovering of the disc. There is mild narrowing of the central canal, lateral recesses and the neural foramen. IMPRESSION: 1. Severe multilevel facet arthrosis and moderate degenerative disc disease within the lumbar spine. 2. Moderate to severe central canal stenosis at L3-L4, as detailed above. This is due to facet arthro sis with associated intracanalicular synovial cyst, ligamentous hypertrophy and disc bulge. Moderate central canal stenosis at L2-L3. 3. Multilevel neural foraminal stenosis, as above. 4. Left paracentral disc extrusion with inferior subligamentous migration at L2-L3 which results in s evere narrowing of the left lateral recess. 5. Mild S-shaped scoliosis of the lumbar spine. ACT 112: Negative or not required by law. Electronically signed by: Jack Horowitz M.D. 05/15/2023 11:12 AM
[2023-05-15] MEDS ORDERED: CYCLOBENZAPRINE HCL 5 MG TAB PO PRN (11:58)
--- NOTE | 2023-05-15 12:02 | Hospitalist Progress Note ---
Date of Service May 15, 2023 Assessment & Plan (1) Lumbar radiculopathy: Plan: Grade 1 anterolisthesis of L5 on S1 measures [address] CAD status post stent hypertension, slightly elevated prediabetes, hemoglobin A1c of 5.19 July 2020 colon cancer status post surgery anxiety/mood disorder, stable past tobacco abuse OBS [facility] spine consult Re: Lumbar radiculopathy Hold patient aspirin until patient seen by Orthopedics DVT prophylaxis. SCDs Re: Possible procedure Full code Patient daughter requesting updates from provider. Ms. Stacy Nayak, contact #[phone]. Text document was generated using [employer] voice recognition software. It may contain grammatical or spelling errors. Kindly contact undersigned for clarification of any documentation item in question. Admission and Anticipated Discharge Date Admission Date: May 15, 2023 Results & Data Results & Data Vital Signs (Past 12 Hours) Vital Signs Temp Pulse Resp BP BP Pulse Ox O2 Del Method 05/15/23 11:25 36.5 C 70 17 165/72 H 94 Room Air 05/15/23 08:59 36.5 C 66 17 194/82 H 94 Room Air 05/15/23 07:37 36.6 C 71 18 110/70 93 Room Air 05/15/23 01:38 36.5 C 78 16 147/84 H 97 Room Air 05/15/23 01:17 36.5 C 78 16 147/84 H 97 Room Air 05/15/23 01:04 Room Air
--- NOTE | 2023-05-15 12:02 | Electrocardiogram Report ---
Test Reason : Blood Pressure : / mmHG Vent. Rate : 061 BPM Atrial Rate : 061 BPM P-R Int : 138 ms QRS Dur : 086 ms QT Int : 426 ms P-R-T Axes : 041 001 022 degrees QTc Int : 428 ms Normal sinus rhythm possible Inferior infarct , age undetermined Abnormal ECG When compared with ECG of 12-NOV-2020 11:26, QT has shortened Confirmed by Bennie Torrez ([id number]) on 05/15/2023 12:02:36 PM Referred By: REFERRED SELF Confirmed By:Lance Torrez
[2023-05-15] MEDS: GABAPENTIN 300 MG CAP PO SCH ×2 (13:26→19:55)
--- NOTE | 2023-05-15 15:14 | Surgery Consultation ---
Date of Consultation May 15, 2023 Assessment & Plan (1) Deep right inguinal pain: I personally viewed and interpreted her CT scan from yesterday There are no acute findings that would be the cause of her abdominal pain No need for any surgical intervention Surgery will sign off, please call with any questions or concerns History of Present Illness Reason for Consultation: Abdominal pain Attending Physician: Francisco Burrell MD History of Present Illness This is an 83 yo female who was admitted yesterday with back and abdominal pain. She states she has had constant right flank and RLQ abdominal pain for the last 9 days. It got worse when she took a shower. No relieving factors. She has had intermittent nausea without emesis. She had a regular BM yesterday. Is tolerating a diet now. Previous abdominal surgeries include cholecystectomy, right colon resection, paraesophageal hernia repair. Allergies Allergy/AdvReac Type Severity Reaction Status Date / Time hydrocodone Allergy Unknown Confusion Verified 05/14/23 23:05 Macrolide Antibiotics Allergy Unknown ALLERGIC Verified 11/08/20 15:55 TO "MYCINS" Penicillins Allergy Unknown HIVES Verified 05/14/23 23:03 Sulfa (Sulfonamide Allergy Unknown HIVES Verified 05/14/23 23:03 Antibiotics) lisinopril AdvReac Unknown cough Verified 05/14/23 23:03 Home Medications Medication Instructions Recorded Confirmed Type aspirin 81 mg tablet,delayed 81 mg PO DAILY 11/08/20 05/14/23 History release (Prabha Low Dose Aspirin) nitroglycerin 0.4 mg sublingual 0.4 mg sublingual UD PRN Chest Pain 11/08/20 05/14/23 History tablet betamethasone dipropionate 0.05 % 1 applic topical BID 05/14/23 05/14/23 History lotion lorazepam 0.5 mg tablet 0.5 mg PO BID PRN Anxiety 05/14/23 05/14/23 History Patient History Medical History 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" CAD (coronary artery disease) "06/2011 - inferior STEMI s/p aspiration thrombectomy to LCX with 2 KAYY and KAYY to RCA" On 01/24/14 13:30 Oneida Arroyo wrote "CA 06/2011, 2 KAYY to the circumflex, 1 KAYY to the RCA echo 11/2013 showed EF 60-65%, mild mitral regurgitation " Surgical History S/P repair of paraesophageal hernia S/P cholecystectomy History of oophorectomy, unilateral S/P anal fissurectomy Hx of tubal ligation H/O dilation and curettage Social History Smoking Status: Former smoker Tobacco Type: Cigarettes Second Hand Exposure: No; Do You Dip or Chew Tobacco: No; Tobacco Cessation Education Requested by Patient: No Hx Alcohol Use: Yes Alcohol type: wine Hx Substance Use: No Preferred Language: Yi Communication Ability: Effective Ballistician Required: No Beliefs That Will Affect Care: None marital status: Single Current Living Situation: Alone Other Information That Helps Us Care for You: No Feels Safe at Home: Yes Safety Concerns: Feels Safe At This Time Assistive Devices: None Review of Systems Constitutional: no fever and no chills Eyes: no blind spots and no dry eyes Ear, Nose, Mouth, Throat: no ear pain and no hearing loss Respiratory: no cough and no dyspnea Cardiovascular: no chest pain and no dyspnea on exertion Gastrointestinal: + abdominal pain and + nausea; no vomiti ng, no change in stools and no constipation Genitourinary: no dysuria and no urinary hesitancy Musculoskeletal: no back pain and no neck pain Integumentary: no acne, no non-healing lesions and no skin ulcer Neurologic: no gait abnormality and no paralysis Psychiatric: no behavioral changes and no depression Endocrine: no fatigue Hematologic / Lymphatic: no easy bleeding and no easy bruising Physical Exam Constitutional: WD/WN, vitals as above Eyes: PERRL, conjunctivae normal, anicteric sclerae ENMT: external ear and nose normal, oropharynx normal Neck: trachea midline, no thyromegaly Respiratory: normal respiratory effort, lungs clear to auscultation Cardiovascular: RRR, no murmur, no edema Gastrointestinal (Abdomen): Inspection/Auscultation: abdomen normal to inspection; abdomen not distended Percussion/Palpation: + abdomen tender (RLQ) and abdomen soft; no guarding, abdomen not rigid and no hernia Musculoskeletal: no cyanosis or clubbing, extremities motor strength 5/5 Skin: no rashes, warm and dry Neurologic: PERRL, EOMI, accommodation nl, no face palsy, no dysarthria Psychiatric: A+Ox3, euthymic affect Results & Data Vital Signs (Past 12 Hours) Vital Signs Temp Pulse Resp BP BP Pulse Ox O2 Del Method 05/15/23 11:25 36.5 C 70 17 165/72 H 94 Room Air 05/15/23 08:59 36.5 C 66 17 194/82 H 94 Room Air 05/15/23 07:37 36.6 C 71 18 110/70 93 Room Air Diagnostic Findings EXAM: CT Abdomen and Pelvis With Intravenous Contrast CLINICAL HISTORY: Reason for exam: RLQ to R hip pain. TECHNIQUE: Axial computed tomography images of the abdomen and pelvis with intravenous contrast. CTDI is 13.04 mGy and DLP is 617.85 mGy-cm. Automated exposure control was utilized for the study. A dose lowering technique was utilized adhering to the principles of ALARA. CONTRAST: Patient received 94 ml opti 320 of IV contrast COMPARISON: No relevant prior studies available. FINDINGS: Lung bases: Unremarkable. No mass. No consolidation. ABDOMEN: Liver: Unremarkable. No mass. Gallbladder and bile ducts: Unremarkable. No calcified stones. No ductal dilation. Pancreas: Unremarkable. No mass. No ductal dilation. Spleen: Unremarkable. No splenomegaly. Adrenals: Unremarkable. No mass. Kidneys and ureters: Bilateral parapelvic cysts. No hydronephrosis. Stomach and bowel: Partial right colon resection. Diverticulosis, without acute diverticulitis. No small bowel obstruction. No free intraperitoneal air. PELVIS: Appendix: No findings to suggest acute appendicitis. Bladder: Unremarkable. No mass. Reproductive: Unremarkable as visualized. ABDOMEN and PELVIS: Intraperitoneal space: Unremarkable. No free air. No significant fluid collection. Bones/joints: Degenerative changes of the spine. Grade 1 anterolisthesis of L5 on S1. No acute fracture. No dislocation. Soft tissues: Unremarkable. Vasculature: Atherosclerotic changes of the aorta. No abdominal aortic aneurysm. Lymph nodes: Unremarkable. No enlarged lymph nodes. IMPRESSION: 1. Partial right colon resection. 2. Diverticulosis, without acute diverticulitis. No small bowel obstruction. No free intraperitoneal air. PG Care Time/CCT Total # of Minutes Spent Total Time Spent with Patient: Total time spent is greater than 50% in coordination of care (as documented) at patient's floor/unit and/or counseling patient: Coding Level of Care Code 50100 INT INP/OBS CARE MIN Diagnoses Deep right inguinal pain R10.31
--- NOTE | 2023-05-15 17:16 | Hospitalist Progress Note ---
Date of Service May 15, 2023 Assessment & Plan (1) Lumbar radiculopathy: (2) Deep right inguinal pain: (3) CAD (coronary artery disease): (4) Depression: Plan This is an 83yo F with a PMH of CAD, HTN, pre-diabetes, history of colon ca s/p surgery, mood disorder, lumbar radiculopathy and other medical problems who presents with lower back pain. Lumbar radiculopathy Lumbar spine MRI with 1. Severe multilevel facet arthrosis and moderate degenerative disc disease within the lumbar spine. 2. Moderate to severe central canal stenosis at L3-L4, as detailed above. This is due to facet arthrosis with associated intracanalicular synovial cyst li gamentous hypertrophy and disc bulge. Moderate central canal stenosis at L2-L3. 3. Multilevel neural foraminal stenosis, as above. 4. Left paracentral disc extrusion with inferior subligamentous migration at L2- L3 which results in severe narrowing of the left lateral recess. 5. Mild S-shaped scoliosis of the lumbar spine Appreciate input from Dr. Wagoner Started on gabapentin, Flexeril, NPO at [place] in case of intervention RLQ pain Gen surg consulted given significant abd pain on exam this morning Per Dr. Ewing, no acute findings on CT abd/pelvis that would be the cause of her abdominal pain No need for any surgical intervention CAD Status post stent Continue aspirin Prediabetes Hemoglobin A1c of 5.19 July 2020 Colon cancer Status post surgical resection Anxiety/mood disorder Stable, PRN ativan DVT prophylaxis. SCDs Re: Possible procedure Full code Ms. Stacy Nayak (daughter), contact #[phone]. Admission and Anticipated Discharge Date Admission Date: May 15, 2023 Supervising Physician Co-Signing Physician Notes Attending Addendum: care coordinated with KRANTHI Suárez's please refer to her notes for full details, I agree with her notes patient seen and examined, records reviewed by myself as well diagnoses and plan of care as per KRANTHI Suárez's notes Francisoc Burrell MD Subjective Seen and examined in follow up for back pain. Having discomfort of back as well as Right lower abdomen this morning. No F/C, lightheadedness, CP, SOB, N/V, dysuria, diarrhea or constipation. Review of Systems Review of Systems: At least ten systems reviewed and negative except as noted in the HPI. Physical Exam Physical Exam: Gen: WD/WN, NAD, resting in bed, A&Ox3 HEENT: Normocephalic, atraumatic, conjunctivae moist, sclerae anicteric, mucous membranes moist Lung: Clear to Auscultation bilaterally, no wheezes/rales/rhonchi Heart: Regular rate, regular rhythm, no murmurs, rubs, or gallops Abdomen: Soft, RLQ TTP, ND +BS x 4 Extremities: Lumbar spine TTP, no deformities or edema noted Skin: Warm, no rash Results & Data Results & Data Vital Signs (Past 12 Hours) Vital Signs Temp Pulse Resp BP BP Pulse Ox O2 Del Method 05/15/23 16:04 36.9 C 79 18 109/74 94 Room Air 05/15/23 11:25 36.5 C 70 17 165/72 H 94 Room Air 05/15/23 08:59 36.5 C 66 17 194/82 H 94 Room Air 05/15/23 07:37 36.6 C 71 18 110/70 93 Room Air Diagnostic Findings Abdomen/Pelvis CT 05/14/23 18:21 Exam(s): CT ABDOMEN + PELVIS With Contrast IV Amt: 94 ml opti 320 EXAM: CT Abdomen and Pelvis With Intravenous Contrast CLINICAL HISTORY: Reason for exam: RLQ to R hip pain. TECHNIQUE: Axial computed tomography images of the abdomen and pelvis with intravenous contrast. CTDI is 13.04 mGy and DLP is 617.85 mGy-cm. Automated exposure control was utilized for the study. A dose lowering technique was utilized adhering to the principles of ALARA. CONTRAST: Patient received 94 ml opti 320 of IV contrast COMPARISON: No relevant prior studies available. FINDINGS: Lung bases: Unremarkable. No mass. No consolidation. ABDOMEN: Liver: Unremarkable. No mass. Gallbladder and bile ducts: Unremarkable. No calcified stones. No ductal dilation. Pancreas: Unremarkable. No mass. No ductal dilation. Spleen: Unremarkable. No splenomegaly. Adrenals: Unremarkable. No mass. Kidneys and ureters: Bilateral parapelvic cysts. No hydronephrosis. Stomach and bowel: Partial right colon resection. Diverticulosis, without acute diverticulitis. No small bowel obstruction. No free intraperitoneal air. PELVIS: Appendix: No findings to suggest acute appendicitis. Bladder: Unremarkable. No mass. Reproductive: Unremarkable as visualized. ABDOMEN and PELVIS: Intraperitoneal space: Unremarkable. No free air. No significant fluid collection. Bones/joints: Degenerative changes of the spine. Grade 1 anterolisthesis of L5 on S1. No acute fracture. No dislocation. Soft tissues: Unremarkable. Vasculature: Atherosclerotic changes of the aorta. No abdominal aortic aneurysm. Lymph nodes: Unremarkable. No enlarged lymph nodes. IMPRESSION: 1. Partial right colon resection. 2. Diverticulosis, without acute diverticulitis. No small bowel obstruction. No free intraperitoneal air. Electronically signed by: Nicholas Gómez MD 05/14/23 22:[address] 05/15/23 00:00 Exam(s): CT L SPINE With Contrast IV Amt: 94 ml optiray 320 EXAM: CT Lumbar Spine With Intravenous Contrast CLINICAL HISTORY: Reason for exam: back pain. TECHNIQUE: Axial computed tomography images of the lumbar spine with intravenous contrast. CTDI is 13.04 mGy and DLP is 617.85 mGy-cm. Automated exposure control was utilized for the study. A dose lowering technique was utilized adhering to the principles of ALARA. CONTRAST: Patient received 94 ml optiray 320 of IV contrast COMPARISON: No relevant prior studies available. FINDINGS: The vertebral body heights are maintained. The lumbar lordosis is preserved. Grade 1 anterolisthesis of L5 on S1 measures 7 mm. The posterior elements are maintained, without evidence of acute fracture. The pedicles are intact. Multilevel lumbar spondylosis and degenerative disc disease. IMPRESSION: No lumbar spine fracture. Grade 1 anterolisthesis of L5 on S1 measures 7 mm. Electronically signed by: Nicholas Gómez MD 05/15/23 00:31 AM Lumbar Spine MRI 05/15/23 07:59 MRI OF THE LUMBAR SPINE WITHOUT CONTRAST CLINICAL HISTORY: Severe right leg/buttock pain. COMPARISON STUDY: Lumbar spine CT May 14, 2023. TECHNIQUE: Utilizing a 1.5 Patricia magnet and dedicated coil, multiplanar, multiecho imaging of the lumbar spine was performed without IV contrast. FINDINGS: For purposes of numbering on this exam, the L5-S1 disc space is assigned to axial image 23 of 25. There is an 8 mm of anterolisthesis of L5 on S1 due to severe facet arthrosis. There is mild levoscoliosis of the upper lumbar spine and dextroscoliosis of the lower lumbar spine. Vertebral body heights are maintained. No marrow edema or marrow placement is present. There is no fracture. No intracanalicular mass or fluid collection is present. The conus terminates at the L1-L2 level. Paravertebral soft tissues are unremarkable. Severe multilevel facet arthrosis is present as well as moderate multilevel degenerative disc disease. L1-2: There is severe disc space narrowing. There is mild disc bulge with osteophyte formation. There is facet arthrosis. There is mild narrowing of the central canal and lateral recesses. There is moderate narrowing of the right neural foramen. Left neural foramen is patent. L2-3: There is moderate disc space narrowing with disc bulge, facet arthrosis and ligamentous hypertrophy. There is a superimposed left paracentral disc extrusion with inferior subligamentous migration. There is severe narrowing of the left lateral recess and moderate narrowing of the central canal. There is moderate right and mild left neural foraminal stenosis. L3-4: There is severe facet arthrosis. A 7 mm x 4 mm intracanalicular synovial cyst arising from the right facet is noted. There is disc bulge. Findings result in moderate to severe central canal stenosis. Patent AP diameter of the canal is 4.8 mm. There is moderate narrowing of both lateral recesses and the left neural foramen. There is mild narrowing of the right neural foramen. L4-5: There is severe facet arthrosis with ligamentous hypertrophy. There is mild disc bulge. There is mild to moderate narrowing of the central canal. Neural foramen are patent. L5-S1: Severe facet arthrosis results in anterolisthesis. There is mild uncovering of the disc. There is mild narrowing of the central canal, lateral recesses and the neural foramen. IMPRESSION: 1. Severe multilevel facet arthrosis and moderate degenerative disc disease within the lumbar spine. 2. Moderate to severe central canal stenosis at L3-L4, as detailed above. This is due to facet arthrosis with associated intracanalicular synovial cyst, ligamentous hypertrophy and disc bulge. Moderate central canal stenosis at L2- L3. 3. Multilevel neural foraminal stenosis, as above. 4. Left paracentral disc extrusion with inferior subligamentous migration at L2- L3 which results in severe narrowing of the left lateral recess. 5. Mild S-shaped scoliosis of the lumbar spine. ACT 112: Negative or not required by law. Electronically signed by: Jack Horowitz M.D. 05/15/2023 11:12 AM
[2023-05-15] MEDS: ACETAMINOPHEN 500 MG TAB PO SCH (21:53)
[2023-05-16] MEDS: ACETAMINOPHEN 500 MG TAB PO SCH ×3 (06:10→20:16)
[2023-05-16 08:24] LABS: Hematocrit (blood only) 35.6 % (37.0-47.0); Hemoglobin 11.1 g/dl (12.0-16.0); Mean Corpuscular Hemoglobin 25.4 pg (25.0-34.0); Mean Corpuscular Hgb Conc 31.2 g/dL (32.0-36.0); Mean Corpuscular Volume 81.5 fL (80.0-100.0); Mean Platelet Volume 9.5 fL (9.4-12.4); Platelet Count 304 K/uL (130-400); RDW Coefficient of Variation 15.5 % (11.5-14.5); RDW Standard Deviation 46.1 fL (36.4-46.3); Red Blood Count 4.37 M/uL (4.20-5.40); White Blood Count 5.32 K/ul (4.8-10.8)
[2023-05-16 08:30] LABS: BUN Creatinine Ratio 30.3 (10-20); Calcium 8.6 mg/dl (8.6-10.3); Creatinine Clr Calc Pharmacy 47.9 ml/min; Est GFR (African American) 84.7 ml/min; Est GFR (Non-African American) 73.1 ml/min; Potassium 3.9 mmol/L (3.5-5.1)
[2023-05-16] MEDS: GABAPENTIN 300 MG CAP PO SCH ×2 (09:06→20:16)
[2023-05-16] MEDS: LIDOCAINE 5% 1 PATCH TD SCH (09:07)
--- NOTE | 2023-05-16 13:25 | XRay Report ---
XR hip RT 2V w pelvis HISTORY: 83 years-old Female hip pain acute right-sided hip pain status post fall COMPARISON: CT abdomen and pelvis 05/14/2023 TECHNIQUE: AP view of the pelvis with 2 views of the right hip FINDINGS: Moderate osteoarthritis of the hips. Degenerative changes of the lumbar spine. Pelvic basin phlebolit hs. No acute fracture, dislocation or avascular necrosis. IMPRESSION: No acute fracture or dislocation. ACT 112: Negative or not required by law. The above report was generated using voice recognition software. It may contain grammatical, syntax o r spelling errors. Electronically signed by: Mert Villalta M.D. 05/16/2023 1:24 PM
--- NOTE | 2023-05-16 16:06 | Hospitalist Progress Note ---
Date of Service May 16, 2023 Assessment & Plan (1) Lumbar radiculopathy: (2) Deep right inguinal pain: (3) CAD (coronary artery disease): (4) Depression: Plan This is an 83yo F with a PMH of CAD, HTN, pre-diabetes, history of colon ca s/p surgery, mood disorder, lumbar radiculopathy and other medical problems ambulates independently at baseline and had who presents with lower back pain/R flank pain x 1 week. Denies any recent falls or trauma but feels she may have "twisted the wrong way" last week while sleeping. Lumbar radiculopathy Lumbar spine MRI with 1. Severe multilevel facet arthrosis and moderate degenerative disc disease within the lumbar spine. 2. Moderate to severe central canal stenosis at L3-L4, as detailed above. This is due to facet arthrosis with associated intracanalicular synovial cyst ligamentous hypertrophy and disc bulge. Moderate central canal stenosis at L2- L3. 3. Multilevel neural foraminal stenosis, as above. 4. Left paracentral disc extrusion with inferior subligamentous migration at L2- L3 which results in severe narrowing of the left lateral recess. 5. Mild S-shaped scoliosis of the lumbar spine Hip/pelvis XR: IMPRESSION: No acute fracture or dislocation. Appreciate input from Dr. Wagoner who added an MRI pelvis this afternoon Started on gabapentin and scheduled Tylenol with significant improvement of symptoms. Adding Tramadol 50mg Q6H PRN for breakthrough pain RLQ pain Gen surg consulted given significant abd pain on exam this morning Per Dr. Ewing, no acute findings on CT abd/pelvis that would be the cause of her abdominal pain No need for any surgical intervention Since admission pain has migrated to R anterior thigh with radiation to R groin CAD Status post stent Continue aspirin Prediabetes Hemoglobin A1c of 5.19 July 2020 Colon cancer Status post surgical resection Anxiety/mood disorder Stable, PRN ativan DVT prophylaxis. SCDs Re: Possible procedure Full code Called Stacy Nayak (daughter), contact #[phone] with an update on 05/16/23. Admission and Anticipated Discharge Date Admission Date: May 15, 2023 Supervising Physician Co-Signing Physician Notes delayed entry date of service noted above Attending Addendum: care coordinated with KRANTHI Noemi Suárez please refer to her notes for full details, I agree with her notes patient seen and examined, records reviewed by myself as well ASSESSMENT AND PLAN diagnoses and plan of care as per KRANTHI Suárez's notes Francisco Burrell MD Subjective Seen and examined in follow up for back and abdominal pain. Symptoms significantly improved since yesterday and starting gabapentin and Tylenol. Still with intermittent shooting pains around lower back and buttocks radiating to anterior thigh. Admits to some weakness of right lower extremity. No other acute changes overnight. No F/C, lightheadedness, CP, SOB, N/V, dysuria, diarrhea or constipation. Review of Systems Review of Systems: At least ten systems reviewed and negative except as noted in the HPI. Physical Exam Physical Exam: Gen: WD/WN, NAD, resting in bed, A&Ox3 HEENT: Normocephalic, atraumatic, conjunctivae moist, sclerae anicteric, mucous membranes moist Lung: Clear to Auscultation bilaterally, no wheezes/rales/rhonchi Heart: Regular rate, regular rhythm, no murmurs, rubs, or gallops Abdomen: Soft, NT, ND +BS x 4 Extremities: Pain in anterior thigh radiating to groin and R suprapubic area, no deformities or edema noted. RLE 4/5, LLE 5/5, sensation intact in BLE Skin: Warm, no rash Results & Data Results & Data Vital Signs (Past 12 Hours) Vital Signs Temp Pulse Resp BP Pulse Ox O2 Del Method 05/16/23 15:06 37.1 C 68 16 106/77 95 Room Air 05/16/23 06:56 36.6 C 64 16 99/59 L 97 Room Air Laboratory Results Short CBC 05/16/23 Range/Units 07:06 WBC 5.32 (4.8-10.8) K/ul Hgb 11.1 L (12.0-16.0) g/dl Hct 35.6 L (37.0-47.0) % Plt Count 304 (130-400) K/uL BMP 05/16/23 07:06 Sodium 140 Potassium 3.9 Chloride 107 Carbon Dioxide 27 BUN 23 Creatinine 0.76 Glucose 94 Calcium 8.6 Diagnostic Findings Abdomen/Pelvis CT 05/14/23 18:21 Exam(s): CT ABDOMEN + PELVIS With Contrast IV Amt: 94 ml opti 320 EXAM: CT Abdomen and Pelvis With Intravenous Contrast CLINICAL HISTORY: Reason for exam: RLQ to R hip pain. TECHNIQUE: Axial computed tomography images of the abdomen and pelvis with intravenous contrast. CTDI is 13.04 mGy and DLP is 617.85 mGy-cm. Automated exposure control was utilized for the study. A dose lowering technique was utilized adhering to the principles of ALARA. CONTRAST: Patient received 94 ml opti 320 of IV contrast COMPARISON: No relevant prior studies available. FINDINGS: Lung bases: Unremarkable. No mass. No consolidation. ABDOMEN: Liver: Unremarkable. No mass. Gallbladder and bile ducts: Unremarkable. No calcified stones. No ductal dilation. Pancreas: Unremarkable. No mass. No ductal dilation. Spleen: Unremarkable. No splenomegaly. Adrenals: Unremarkable. No mass. Kidneys and ureters: Bilateral parapelvic cysts. No hydronephrosis. Stomach and bowel: Partial right colon resection. Diverticulosis, without acute diverticulitis. No small bowel obstruction. No free intraperitoneal air. PELVIS: Appendix: No findings to suggest acute appendicitis. Bladder: Unremarkable. No mass. Reproductive: Unremarkable as visualized. ABDOMEN and PELVIS: Intraperitoneal space: Unremarkable. No free air. No significant fluid collection. Bones/joints: Degenerative changes of the spine. Grade 1 anterolisthesis of L5 on S1. No acute fracture. No dislocation. Soft tissues: Unremarkable. Vasculature: Atherosclerotic changes of the aorta. No abdominal aortic aneurysm. Lymph nodes: Unremarkable. No enlarged lymph nodes. IMPRESSION: 1. Partial right colon resection. 2. Diverticulosis, without acute diverticulitis. No small bowel obstruction. No free intraperitoneal air. Electronically signed by: Nicholas Gómez MD 05/14/23 22:[address] 05/15/23 00:00 Exam(s): CT L SPINE With Contrast IV Amt: 94 ml optiray 320 EXAM: CT Lumbar Spine With Intravenous Contrast CLINICAL HISTORY: Reason for exam: back pain. TECHNIQUE: Axial computed tomography images of the lumbar spine with intravenous contrast. CTDI is 13.04 mGy and DLP is 617.85 mGy-cm. Automated exposure control was utilized for the study. A dose lowering technique was utilized adhering to the principles of ALARA. CONTRAST: Patient received 94 ml optiray 320 of IV contrast COMPARISON: No relevant prior studies available. FINDINGS: The vertebral body heights are maintained. The lumbar lordosis is preserved. Grade 1 anterolisthesis of L5 on S1 measures 7 mm. The posterior elements are maintained, without evidence of acute fracture. The pedicles are intact. Multilevel lumbar spondylosis and degenerative disc disease. IMPRESSION: No lumbar spine fracture. Grade 1 anterolisthesis of L5 on S1 measures 7 mm. Electronically signed by: Nicholas Gómez MD 05/15/23 00:31 AM Lumbar Spine MRI 05/15/23 07:59 MRI OF THE LUMBAR SPINE WITHOUT CONTRAST CLINICAL HISTORY: Severe right leg/buttock pain. COMPARISON STUDY: Lumbar spine CT May 14, 2023. TECHNIQUE: Utilizing a 1.5 Patricia magnet and dedicated coil, multiplanar, multiecho imaging of the lumbar spine was performed without IV contrast. FINDINGS: For purposes of numbering on this exam, the L5-S1 disc space is assigned to axial image 23 of 25. There is an 8 mm of anterolisthesis of L5 on S1 due to severe facet arthrosis. There is mild levoscoliosis of the upper lumbar spine and dextroscoliosis of the lower lumbar spine. Vertebral body heights are maintained. No marrow edema or marrow placement is present. There is no fracture. No intracanalicular mass or fluid collection is present. The conus terminates at the L1-L2 level. Paravertebral soft tissues are unremarkable. Severe multilevel facet arthrosis is present as well as moderate multilevel degenerative disc disease. L1-2: There is severe disc space narrowing. There is mild disc bulge with osteophyte formation. There is facet arthrosis. There is mild narrowing of the central canal and lateral recesses. There is moderate narrowing of the right neural foramen. Left neural foramen is patent. L2-3: There is moderate disc space narrowing with disc bulge, facet arthrosis and ligamentous hypertrophy. There is a superimposed left paracentral disc extrusion with inferior subligamentous migration. There is severe narrowing of the left lateral recess and moderate narrowing of the central canal. There is moderate right and mild left neural foraminal stenosis. L3-4: There is severe facet arthrosis. A 7 mm x 4 mm intracanalicular synovial cyst arising from the right facet is noted. There is disc bulge. Findings result in moderate to severe central canal stenosis. Patent AP diameter of the canal is 4.8 mm. There is moderate narrowing of both lateral recesses and the left neural foramen. There is mild narrowing of the right neural foramen. L4-5: There is severe facet arthrosis with ligamentous hypertrophy. There is mild disc bulge. There is mild to moderate narrowing of the central canal. Neural foramen are patent. L5-S1: Severe facet arthrosis results in anterolisthesis. There is mild uncovering of the disc. There is mild narrowing of the central canal, lateral recesses and the neural foramen. IMPRESSION: 1. Severe multilevel facet arthrosis and moderate degenerative disc disease within the lumbar spine. 2. Moderate to severe central canal stenosis at L3-L4, as detailed above. This is due to facet arthrosis with associated intracanalicular synovial cyst, ligamentous hypertrophy and disc bulge. Moderate central canal stenosis at L2- L3. 3. Multilevel neural foraminal stenosis, as above. 4. Left paracentral disc extrusion with inferior subligamentous migration at L2- L3 which results in severe narrowing of the left lateral recess. 5. Mild S-shaped scoliosis of the lumbar spine. ACT 112: Negative or not required by law. Electronically signed by: Jack Horowitz M.D. 05/15/2023 11:12 AM Hip/Pelvis X-Ray 05/16/23 10:55 XR hip RT 2V w pelvis HISTORY: 83 years-old Female hip pain acute right-sided hip pain status post fall COMPARISON: CT abdomen and pelvis 05/14/2023 TECHNIQUE: AP view of the pelvis with 2 views of the right hip FINDINGS: Moderate osteoarthritis of the hips. Degenerative changes of the lumbar spine. Pelvic basin phleboliths. No acute fracture, dislocation or avascular necrosis. IMPRESSION: No acute fracture or dislocation. ACT 112: Negative or not required by law. The above report was generated using voice recognition software. It may contain grammatical, syntax or spelling errors. Electronically signed by: Mert Villalta M.D. 05/16/2023 1:24 PM
--- NOTE | 2023-05-16 16:22 | Orthopedic Consultation ---
Date of Consultation May 16, 2023 Assessment & Plan (1) Lumbar radiculopathy: MRI lumbar spine available for review does demonstrate multilevel neural compression with evidence of facet hypertrophy and facet cyst at L3-L4 on the right. Her pattern appears to be more of an L1-L2 distribution. There is evidence of foraminal stenosis at L1-L2 on the right. There is also evidence of a positive logroll. I would like to rule out an occult fracture of the right hip versus sacroiliitis. This may contribute to her discomfort. Pending the results of her imaging we may consider consultation with interventional pain management for diagnostic therapeutic foraminal injections. History of Present Illness Reason for Consultation: Right buttock and groin pain Attending Physician: Francicso Burrell MD History of Present Illness This is a very pleasant 83-year-old female who presents with approximately 10 days of severe limiting right buttock and groin pain. Exacerbated with weightbearing. She denies any trauma fall or event. She has not experienced these pain patterns before. She has no left lower extremity symptoms. She presents the hospital with marked pain. She is somewhat improved with bedrest and pain medications. She denies any loss of bowel or bladder control or lower extremity weakness. Allergies Allergy/AdvReac Type Severity Reaction Status Date / Time hydrocodone Allergy Unknown Confusion Verified 05/14/23 23:05 Macrolide Antibiotics Allergy Unknown ALLERGIC Verified 11/08/20 15:55 TO "MYCINS" Penicillins Allergy Unknown HIVES Verified 05/14/23 23:03 Sulfa (Sulfonamide Allergy Unknown HIVES Verified 05/14/23 23:03 Antibiotics) lisinopril AdvReac Unknown cough Verified 05/14/23 23:03 Home Medications Medication Instructions Recorded Confirmed Type aspirin 81 mg tablet,delayed 81 mg PO DAILY 11/08/20 05/14/23 History release (Prabha Low Dose Aspirin) nitroglycerin 0.4 mg sublingual 0.4 mg sublingual UD PRN Chest Pain 11/08/2008/05 History tablet betamethasone dipropionate 0.05 % 1 applic topical BID 05/14/23 05/14/23 History lotion lorazepam 0.5 mg tablet 0.5 mg PO BID PRN Anxiety 05/14/23 05/14/23 History Patient History Medical History 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" CAD (coronary artery disease) "06/2011 - inferior STEMI s/p aspiration thrombectomy to LCX with 2 KAYY and KAYY to RCA" On 01/24/14 13:30 Oneida Arroyo wrote "OK 06/2011, 2 KAYY to the circumflex, 1 KAYY to the RCA echo 11/2013 showed EF 60-65%, mild mitral regurgitation " Surgical History S/P repair of paraesophageal hernia S/P cholecystectomy History of oophorectomy, unilateral S/P anal fissurectomy Hx of tubal ligation H/O dilation and curettage Social History Smoking Status: Former smoker Tobacco Type: Cigarettes Second Hand Exposure: No; Do You Dip or Chew Tobacco: No; Tobacco Cessation Education Requested by Patient: No Hx Alcohol Use: Yes Alcohol type: wine Hx Substance Use: No Preferred Language: Belarusian Communication Ability: Effective Lumber Tallier Required: No Beliefs That Will Affect Care: None marital status: Single Current Living Situation: Alone Other Information That Helps Us Care for You: No Feels Safe at Home: Yes Safety Concerns: Feels Safe At This Time Assistive Devices: None Physical Exam Physical Exam: On exam she has reasonable +5-5 bilateral plantarflexion dorsiflexion. She is a ble to flex her right leg but this reproduces pain along the right anterior thigh. She has no limitation to the left lower extremity. There is a positive logroll to the right compared to left. She has tenderness to palpation of the right SI joint. There is no significant trochanteric discomfort. Sensory is symmetric and intact. Results & Data Vital Signs (Past 12 Hours) Vital Signs Temp Pulse Resp BP Pulse Ox O2 Del Method 05/16/23 15:06 37.1 C 68 16 106/77 95 Room Air 05/16/23 06:56 36.6 C 64 16 99/59 L 97 Room Air
[2023-05-16] MEDS: traMADol HCL 50 MG TABLET PO PRN (16:57)
[2023-05-16] MEDS: LORazepam 0.5 MG TAB PO PRN (16:57)
--- NOTE | 2023-05-16 18:48 | Magnetic Resonance Report ---
MR pelvis wo con HISTORY: 83 years-old Female SI joint and hip pain acute pelvic pain COMPARISON: CT 05/14/2023, MRI lumbar spine 05/15/2023. TECHNIQUE: Multi planar multisequence MRI of the pelvis was obtained without the use of IV contrast. FINDINGS: Degenerative changes of the lumbar spine are redemonstrated. Grade 1 anterolisthesis L5 on S1. Study is mildly motion degraded. No acute fracture, dislocation, avascular necrosis, osseous erosion or mar row replacing process. Moderate osteoarthritis of the hips. Chronic bilateral hamstring tendinosis. M usculature is within normal limits. Mild to moderate degeneration of the SI joints. No acute osseous erosions. Heterogeneous uterus with fluid signal noted within the endometrial canal of the uterine fundus measu ring 8 mm in AP dimension. Trace free pelvic fluid. Colonic diverticulosis. IMPRESSION: 1. No acute fracture, osseous erosion or bone marrow edema. 2. Moderate osteoarthritis of the hips. 3. Abnormal appearance of the postmenopausal uterus. Correlation with follow-up ultrasound recommende d. 4. Colonic diverticulosis. ACT 112: Negative or not required by law. The above report was generated using voice recognition software. It may contain grammatical, syntax o r spelling errors. Electronically signed by: Mert Villalta M.D. 05/16/2023 6:45 PM
[2023-05-17] MEDS: ACETAMINOPHEN 500 MG TAB PO SCH ×4 (05:53→22:21)
[2023-05-17 07:30] LABS: Hematocrit (blood only) 34.3 % (37.0-47.0); Hemoglobin 10.9 g/dl (12.0-16.0); Mean Corpuscular Hemoglobin 25.6 pg (25.0-34.0); Mean Corpuscular Hgb Conc 31.8 g/dL (32.0-36.0); Mean Corpuscular Volume 80.7 fL (80.0-100.0); Mean Platelet Volume 9.7 fL (9.4-12.4); Platelet Count 283 K/uL (130-400); RDW Coefficient of Variation 15.4 % (11.5-14.5); RDW Standard Deviation 44.7 fL (36.4-46.3); Red Blood Count 4.25 M/uL (4.20-5.40); White Blood Count 4.84 K/ul (4.8-10.8)
[2023-05-17] MEDS: GABAPENTIN 300 MG CAP PO SCH ×2 (07:37→20:01)
[2023-05-17] MEDS: LIDOCAINE 5% 1 PATCH TD SCH (07:38)
[2023-05-17 07:57] LABS: BUN Creatinine Ratio 28.6 (10-20); Calcium 8.4 mg/dl (8.6-10.3); Est GFR (African American) 93.5 ml/min; Est GFR (Non-African American) 80.7 ml/min; Potassium 3.5 mmol/L (3.5-5.1)
--- NOTE | 2023-05-17 11:39 | Orthopedic Progress Note ---
Date of Service May 17, 2023 Assessment & Plan (1) Lumbar radiculopathy: Plan: Assessment lumbar radiculopathy. Plan at this time discussion today with the patient reviewing her imaging including updated pelvis MRI. She does have evidence of moderate stenosis. Do not appreciate any inflammatory change in the SI joints. I suspect her symptoms are most likely combination of an L1-L2 radiculopathy with some intra-articular hip disease. Would like to avoid surgery if possible. We will consult interventional pain management for diagnostic therapeutic injections of lumbar spine and hip as well as have her work with occupational and physical therapy. Admission and Anticipated Discharge Date Admission Date: May 15, 2023 Subjective Patient states she is somewhat improved. She was able to the bathroom on her own today. She still notes intermittent right groin pain. Physical Exam Physical Exam: On exam she is currently bed. She is neurologically intact. Results & Data Vital Signs (Past 12 Hours) Vital Signs Temp Pulse Resp BP Pulse Ox O2 Del Method 05/17/23 07:51 36.8 C 66 16 132/83 94 Room Air
[2023-05-17] MEDS: traMADol HCL 50 MG TABLET PO PRN (16:01)
--- NOTE | 2023-05-17 16:33 | Hospitalist Progress Note ---
Date of Service May 17, 2023 Assessment & Plan (1) Lumbar radiculopathy: (2) Deep right inguinal pain: (3) CAD (coronary artery disease): (4) Depression: Plan per KRANTHI notes with addendum: This is an 83yo F with a PMH of CAD, HTN, pre-diabetes, history of colon ca s/p surgery, mood disorder, lumbar radiculopathy and other medical problems ambulates independently at baseline and had who presents with lower back pain/R flank pain x 1 week. Denies any recent falls or trauma but feels she may have "twisted the wrong way" last week while sleeping. Lumbar radiculopathy Lumbar spine MRI with 1. Severe multilevel facet arthrosis and moderate degenerative disc disease within the lumbar spine. 2. Moderate to severe central canal stenosis at L3-L4, as detailed above. This is due to facet arthrosis with associated intracanalicular synovial cyst ligamentous hypertrophy and disc bulge. Moderate central canal stenosis at L2- L3. 3. Multilevel neural foraminal stenosis, as above. 4. Left paracentral disc extrusion with inferior subligamentous migration at L2- L3 which results in severe narrowing of the left lateral recess. 5. Mild S-shaped scoliosis of the lumbar spine Hip/pelvis XR: IMPRESSION: No acute fracture or dislocation. Appreciate input from Dr. Wagoner who added an MRI pelvis this afternoon Started on gabapentin and scheduled Tylenol with significant improvement of symptoms. Adding Tramadol 50mg Q6H PRN for breakthrough pain 05/17 Pelvis MRI: 1. No acute fracture, osseous erosion or bone marrow edema. 2. Moderate osteoarthritis of the hips. 3. Abnormal appearance of the postmenopausal uterus. Correlation with follow-up ultrasound recommended. 4. Colonic diverticulosis. Pain Management service consulted for foraminal injection continue present pain regimen RLQ pain Gen surg consulted given significant abd pain on exam this morning Per Dr. Ewing, no acute findings on CT abd/pelvis that would be the cause of her abdominal pain No need for any surgical intervention Since admission pain has migrated to R anterior thigh with radiation to R groin CAD Status post stent Continue aspirin Prediabetes Hemoglobin A1c of 5.19 July 2020 Colon cancer Status post surgical resection Anxiety/mood disorder Stable, PRN ativan DVT prophylaxis. SCDs Re: Possible procedure Full code PT/OT eval in progress lives alone, family nearby plan of care discussed with patient in detail and at length all questions answered she is understanding, agreeable, comfortable with the plan of caref Admission and Anticipated Discharge Date Admission Date: May 15, 2023 Subjective ff up for lumbar radiculopathy, etc seen resting in bed, comfortable in good spirits states she feels improved today less back and groin pain able to ambulate better compared to admission but still with some difficulty due to pain Review of Systems Review of Systems: all noted and negative except for above Physical Exam Physical Exam: General- oriented x 3, not in distress, speaks in sentences with no effort or accessory muscle use Eyes- anicteric Neck- no JVD Lungs- clear breath sounds BL Heart- normal rate, regular rhythm; no murmurs Abdomen- normal bowel sounds, nondistended, soft, no tenderness Extremities- no pretibial edema, no calf tenderness Neuro- alert, oriented x 3; no gross focal neurologic deficits Skin- warm & dry Results & Data Results & Data Vital Signs (Past 12 Hours) Vital Signs Temp Pulse Resp BP Pulse Ox O2 Del Method 05/17/23 15:54 36.6 C 82 16 119/77 95 Room Air 05/17/23 07:51 36.8 C 66 16 132/83 94 Room Air all noted and reviewed including below
[2023-05-18] MEDS: ACETAMINOPHEN 500 MG TAB PO SCH ×3 (05:29→20:43)
[2023-05-18 06:23] LABS: Mean Corpuscular Hemoglobin 25.6 pg (25.0-34.0); Mean Corpuscular Hgb Conc 31.4 g/dL (32.0-36.0); Mean Corpuscular Volume 81.4 fL (80.0-100.0); Mean Platelet Volume 9.7 fL (9.4-12.4); Platelet Count 290 K/uL (130-400); RDW Coefficient of Variation 15.6 % (11.5-14.5); RDW Standard Deviation 46.3 fL (36.4-46.3); White Blood Count 5.56 K/ul (4.8-10.8)
[2023-05-18 06:58] LABS: BUN Creatinine Ratio 27.8 (10-20); Calcium 8.2 mg/dl (8.6-10.3); Creatinine Clr Calc Pharmacy 50.5 ml/min; Est GFR (African American) 90.4 ml/min
[2023-05-18] MEDS: LIDOCAINE 5% 1 PATCH TD SCH (07:37)
[2023-05-18] MEDS: GABAPENTIN 300 MG CAP PO SCH ×2 (08:02→20:43)
[2023-05-18] MEDS: traMADol HCL 50 MG TABLET PO PRN (15:39)
--- NOTE | 2023-05-18 15:55 | Hospitalist Progress Note ---
Date of Service May 18, 2023 Assessment & Plan (1) Lumbar radiculopathy: (2) Deep right inguinal pain: (3) CAD (coronary artery disease): (4) Depression: Plan per KRANTHI notes with addendum: This is an 83yo F with a PMH of CAD, HTN, pre-diabetes, history of colon ca s/p surgery, mood disorder, lumbar radiculopathy and other medical problems ambulates independently at baseline and had who presents with lower back pain/R flank pain x 1 week. Denies any recent falls or trauma but feels she may have "twisted the wrong way" last week while sleeping. Lumbar radiculopathy Lumbar spine MRI with 1. Severe multilevel facet arthrosis and moderate degenerative disc disease within the lumbar spine. 2. Moderate to severe central canal stenosis at L3-L4, as detailed above. This is due to facet arthrosis with associated intracanalicular synovial cyst ligamentous hypertrophy and disc bulge. Moderate central canal stenosis at L2- L3. 3. Multilevel neural foraminal stenosis, as above. 4. Left paracentral disc extrusion with inferior subligamentous migration at L2- L3 which results in severe narrowing of the left lateral recess. 5. Mild S-shaped scoliosis of the lumbar spine Hip/pelvis XR: IMPRESSION: No acute fracture or dislocation. Appreciate input from Dr. Wagoner who added an MRI pelvis this afternoon Started on gabapentin and scheduled Tylenol with significant improvement of symptoms. Adding Tramadol 50mg Q6H PRN for breakthrough pain 05/17 Pelvis MRI: 1. No acute fracture, osseous erosion or bone marrow edema. 2. Moderate osteoarthritis of the hips. 3. Abnormal appearance of the postmenopausal uterus. Correlation with follow-up ultrasound recommended. 4. Colonic diverticulosis. Pain Management service consulted for foraminal injection continue present pain regimen 05/18 pain improving for evaluation of possible foraminal injection by pain mgt svc tomorrow RLQ pain Gen surg consulted given significant abd pain on exam this morning Per Dr. Ewing, no acute findings on CT abd/pelvis that would be the cause of her abdominal pain No need for any surgical intervention Since admission pain has migrated to R anterior thigh with radiation to R groin CAD Status post stent Continue aspirin Prediabetes Hemoglobin A1c of 5.19 July 2020 Colon cancer Status post surgical resection Anxiety/mood disorder Stable, PRN ativan DVT prophylaxis. SCDs Re: Possible procedure Full code PT/OT eval in progress lives alone, family nearby plan of care discussed with patient in detail and at length all questions answered she is understanding, agreeable, comfortable with the plan of caref Admission and Anticipated Discharge Date Admission Date: May 15, 2023 Subjective ff up for lumbar radiculopathy, etc seen resting in bed, comfortable states she feels ok today pain continues to improve none at rest, mostly with movement able to move R leg better when ambulating with walker no other new symptoms Review of Systems Review of Systems: all noted and negative except for above Physical Exam Physical Exam: General- oriented x 3, not in distress, speaks in sentences with no effort or accessory muscle use Eyes- anicteric Neck- no JVD Lungs- clear breath sounds bilaterally, no rales/wheezes Heart- normal rate, regular rhythm; no murmurs Abdomen- normal bowel sounds, nondistended, soft, nontender Extremities- no pretibial edema, no calf tenderness Neuro- alert, oriented x 3; no gross focal neurologic deficits Skin- warm & dry Results & Data Results & Data Vital Signs (Past 12 Hours) Vital Signs Temp Pulse Resp BP Pulse Ox O2 Del Method 05/18/23 07:49 36.6 C 64 16 114/63 96 Room Air all noted and reviewed including below
[2023-05-19] MEDS: traMADol HCL 50 MG TABLET PO PRN ×2 (05:39→20:09)
[2023-05-19] MEDS: ACETAMINOPHEN 500 MG TAB PO SCH ×3 (05:40→20:06)
[2023-05-19] MEDS: LIDOCAINE 5% 1 PATCH TD SCH (07:50)
[2023-05-19] MEDS: GABAPENTIN 300 MG CAP PO SCH ×2 (07:50→20:06)
--- NOTE | 2023-05-19 10:46 | Pain Management Consultation ---
Date of Consultation May 19, 2023 Assessment & Plan (1) Sacroiliitis: (2) Osteoarthritis of right hip: (3) Lumbar spinal stenosis: Plan 1. 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 #2 pain generator being osteoarthritis of the right hip. At this time we discussed right sacroiliac joint injection as primary with subsequent right intra-articular hip injection to further minimize pain and discomfort. We discussed the risk, benefits, expectations and these will be scheduled. Plan for these to be performed this week as an outpatient so that she may be discharged from the hospital. This will be pending ability to obtain authorization through her insurance. Will expedite her authorization. 2. Recommend continuation of gabapentin 300 mg p.o. twice daily as well as Lidoderm patch and scheduled Tylenol 1000 mg p.o. every 8. She may continue to utilize intermittent judicious use of tramadol 50 mg 1 p.o. every 6 as needed. 3. Recommend outpatient physical therapy when patient feels that she is able. 4. Thank you very much for this consultation we will follow-up with the patient. History of Present Illness Attending Physician: Francisco Burrell MD History of Present Illness 83-year-old female with 1-1/2-week history of right sided buttock, lumbosacral junction pain sharp stabbing shooting with radiation to her right groin and right lateral thigh. She states predominant pain is over her right buttock but does have some anterior hip pain right sided as well. She denies any distal to the knee radicular symptoms, bowel or bladder incontinence, motor weakness, foot drop, fever, chills, night sweats, saddle anesthesia. She reports pain ranges between 5-8 out of 10 currently 7 out of 10. She reports pain is limiting her ambulation rather than motor weakness. She reports previous pain in the past but was able to be mitigated with ice. She reports trial of ice for this current pain for 5 to 7 days without success thus presented to the [facility] emergency room. She reports history of dental post 2-1/2 weeks ago in preparation for a dental implant. She denies utilization of antibiotics by her dentist surrounding that procedure. She reports since her admission she has had significant improvement of symptoms with scheduled gabapentin, Tylenol and approximately 1 tramadol per day. She reports living on 1 level home with close adult children for assistance. Pain Assessment Full Body Front + Back: 2 1. 2. 3. [facility] Combined Pain Scale: 7-Severe - Pain prevents productive activity. Impossible to tolerate. Pain scale - at its best (0-10): 5 Pain scale - at its worst (0-10): 8 Allergies Allergy/AdvReac Type Severity Reaction Status Date / Time hydrocodone Allergy Unknown Confusion Verified 05/14/23 23:05 Macrolide Antibiotics Allergy Unknown ALLERGIC Verified 11/08/20 15:55 TO "MYCINS" Penicillins Allergy Unknown HIVES Verified 05/14/23 23:03 Sulfa (Sulfonamide Allergy Unknown HIVES Verified 05/14/23 23:03 Antibiotics) lisinopril AdvReac Unknown cough Verified 05/14/23 23:03 Home Medications Medication Instructions Recorded Confirmed Type aspirin 81 mg tablet,delayed 81 mg PO DAILY 11/08/20 05/14/23 History release (Prabha Low Dose Aspirin) nitroglycerin 0.4 mg sublingual 0.4 mg sublingual UD PRN Chest Pain 11/08/20 05/14/23 History tablet betamethasone dipropionate 0.05 % 1 applic topical BID 05/14/23 05/14/23 History lotion lorazepam 0.5 mg tablet 0.5 mg PO BID PRN Anxiety 05/14/23 05/14/23 History Pain History Pain Intensity Pain scale - at its best (0-10): 5 Pain scale - at its worst (0-10): 8 Patient History Medical History (Updated 05/19/23 @ 10:44 by Stacy Yee DO) Lumbar spinal stenosis Osteoarthritis of right hip Sacroiliitis 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" CAD (coronary artery disease) "06/2011 - inferior STEMI s/p aspiration thrombectomy to LCX with 2 KAYY and KAYY to RCA" On 01/24/14 13:30 Oneida Arroyo wrote "CO 06/2011, 2 KAYY to the circumflex, 1 KAYY to the RCA echo 11/2013 showed EF 60-65%, mild mitral regurgitation " Surgical History S/P repair of paraesophageal hernia S/P cholecystectomy History of oophorectomy, unilateral S/P anal fissurectomy Hx of tubal ligation H/O dilation and curettage Social History Smoking Status: Former smoker Tobacco Type: Cigarettes Second Hand Exposure: No; Do You Dip or Chew Tobacco: No; Tobacco Cessation Education Requested by Patient: No Hx Alcohol Use: Yes Alcohol type: wine Hx Substance Use: No Preferred Language: Romansh Communication Ability: Effective Synchronizer Required: No Beliefs That Will Affect Care: None marital status: Single Current Living Situation: Alone Other Information That Helps Us Care for You: No Feels Safe at Home: Yes Safety Concerns: Feels Safe At This Time Assistive Devices: None Physical Exam 2 Physical Exam: Constitutional: Well-developed, well-nourished, healthy-appearing, normal weight Psych: Awake, alert, and oriented 3 with normal affect and mood. Recent memory appears grossly intact. Pleasant and cooperative on examination Eyes: Pupils are equally round and reactive to light with normal size pupils, eyelids appear normal Ear, nose, mouth, and throat: Moist nasal and oral membranes, lips and tongues appear normal, no external ear abnormalities are noted Neck: The trachea is midline without deviation and no thyromegaly is noted Respiratory: Normal respiratory effort without distress, no audible wheezes or rhonchi CV: Normal S1 and S2, 2+ dorsalis pedis and posterior tibial pulses Chest: Deferred GI/abdomen: Non-tender without guarding, no masses noted Musculoskeletal: Head is normocephalic and atraumatic, gait not observed. Rolling walker at bedside Cervical: Lordotic curve: Normal Range of motion is normal with extension, flexion, side-bending, rotation Strength: Strength is grossly equal bilaterally with 5 out of 5 strength in all planes Thoracic: Kyphotic curve: Normal Range of motion is normal with extension, flexion, side-bending, rotation Myofascial spasm: No appreciable spasm. No discrete trigger points noted Lumbar: Lordotic curve: Loss of lumbar lordosis Range of motion is slightly decreased with extension, flexion, side-bending, rotation Tenderness: Mildly tender over the axial midline L4-S1 left equal to right Facet provocation: Marginally positive bilaterally Straight leg raise: Negative bilaterally, not worse with Achilles stretch Step-off injuries: None Strength: Strength is equal bilaterally with 5 out of 5 strength in all planes Sensation of lower extremities: Intact bilaterally Deep tendon reflexes: Rated at 1+ in bilateral L4 and S1 Myofascial spasm: Marked right-sided lumbar paravertebral spinous musculature and superior gluteal spasm. Multiple discrete trigger points noted Greater trochanters: Nontender bilaterally Sacroiliac joints: Nontender on the left exquisitely positive on the right Thigh thrust, Fabere and Gaenslens: negative left positive on the right Pathologic reflexes noted: None She has tenderness with AP compression and external rotation of her right hip joint Skin: No rashes, lesions, ulcers, or induration noted Neuro: No nystagmus noted, the tongue is midline, the patient is able to rotate their head bilaterally : Deferred Results (Pain Clinic) Diagnostic Review MRI: non enhanced, reports reviewed and findings discussed with patient MRI Findings: 05/15/23 MRI OF THE LUMBAR SPINE WITHOUT CONTRAST CLINICAL HISTORY: Severe right leg/buttock pain. COMPARISON STUDY: Lumbar spine CT May 14, 2023. TECHNIQUE: Utilizing a 1.5 Patricia magnet and dedicated coil, multiplanar, multiecho imaging of the lumbar spine was performed without IV contrast. FINDINGS: For purposes of numbering on this exam, the L5-S1 disc space is assigned to axial image 23 of 25. There is an 8 mm of anterolisthesis of L5 on S1 due to severe facet arthrosis. There is mild levoscoliosis of the upper lumbar spine and dextroscoliosis of the lower lumbar spine. Vertebral body heights are maintained. No marrow edema or marrow placement is present. There is no fracture. No intracanalicular mass or fluid collection is present. The conus terminates at the L1-L2 level. Paravertebral soft tissues are unremarkable. Severe multilevel facet arthrosis is present as well as moderate multilevel degenerative disc disease. L1-2: There is severe disc space narrowing. There is mild disc bulge with osteophyte formation. There is facet arthrosis. There is mild narrowing of the central canal and lateral recesses. There is moderate narrowing of the right neural foramen. Left neural foramen is patent. L2-3: There is moderate disc space narrowing with disc bulge, facet arthrosis and ligamentous hypertrophy. There is a superimposed left paracentral disc extrusion with inferior subligamentous migration. There is severe narrowing of the left lateral recess and moderate narrowing of the central canal. There is moderate right and mild left neural foraminal stenosis. L3-4: There is severe facet arthrosis. A 7 mm x 4 mm intracanalicular synovial cyst arising from the right facet is noted. There is disc bulge. Findings result in moderate to severe central canal stenosis. Patent AP diameter of the canal is 4.8 mm. There is moderate narrowing of both lateral recesses and the left neural foramen. There is mild narrowing of the right neural foramen. L4-5: There is severe facet arthrosis with ligamentous hypertrophy. There is mild disc bulge. There is mild to moderate narrowing of the central canal. Neural foramen are patent. L5-S1: Severe facet arthrosis results in anterolisthesis. There is mild uncovering of the disc. There is mild narrowing of the central canal, lateral recesses and the neural foramen. IMPRESSION: 1. Severe multilevel facet arthrosis and moderate degenerative disc disease within the lumbar spine. 2. Moderate to severe central canal stenosis at L3-L4, as detailed above. This is due to facet arthrosis with associated intracanalicular synovial cyst, ligamentous hypertrophy and disc bulge. Moderate central canal stenosis at L2- L3. 3. Multilevel neural foraminal stenosis, as above. 4. Left paracentral disc extrusion with inferior subligamentous migration at L2- L3 which results in severe narrowing of the left lateral recess. 5. Mild S-shaped scoliosis of the lumbar spine. 05/16/23 MR pelvis wo con HISTORY: 83 years-old Female SI joint and hip pain acute pelvic pain COMPARISON: CT 05/14/2023, MRI lumbar spine 05/15/2023. TECHNIQUE: Multi planar multisequence MRI of the pelvis was obtained without the use of IV contrast. FINDINGS: Degenerative changes of the lumbar spine are redemonstrated. Grade 1 anterolisthesis L5 on S1. Study is mildly motion degraded. No acute fracture, dislocation, avascular necrosis, osseous erosion or marrow replacing process. Moderate osteoarthritis of the hips. Chronic bilateral hamstring tendinosis. Musculature is within normal limits. Mild to moderate degeneration of the SI joints. No acute osseous erosions. Heterogeneous uterus with fluid signal noted within the endometrial canal of the uterine fundus measuring 8 mm in AP dimension. Trace free pelvic fluid. Colonic diverticulosis. IMPRESSION: 1. No acute fracture, osseous erosion or bone marrow edema. 2. Moderate osteoarthritis of the hips. 3. Abnormal appearance of the postmenopausal uterus. Correlation with follow-up ultrasound recommended. 4. Colonic diverticulosis. Radiology: reports reviewed and findings discussed with patient Radiology Findings: 05/16/23 XR hip RT 2V w pelvis HISTORY: 83 years-old Female hip pain acute right-sided hip pain status post fall COMPARISON: CT abdomen and pelvis 05/14/2023 TECHNIQUE: AP view of the pelvis with 2 views of the right hip FINDINGS: Moderate osteoarthritis of the hips. Degenerative changes of the lumbar spine. Pelvic basin phleboliths. No acute fracture, dislocation or avascular necrosis. IMPRESSION: No acute fracture or dislocation.
--- NOTE | 2023-05-19 16:25 | Hospitalist Progress Note ---
Date of Service May 19, 2023 Assessment & Plan (1) Lumbar radiculopathy: (2) Deep right inguinal pain: (3) CAD (coronary artery disease): (4) Depression: Plan per KRANTHI notes with addendum: This is an 83yo F with a PMH of CAD, HTN, pre-diabetes, history of colon ca s/p surgery, mood disorder, lumbar radiculopathy and other medical problems ambulates independently at baseline and had who presents with lower back pain/R flank pain x 1 week. Denies any recent falls or trauma but feels she may have "twisted the wrong way" last week while sleeping. Lumbar radiculopathy Lumbar spine MRI with 1. Severe multilevel facet arthrosis and moderate degenerative disc disease within the lumbar spine. 2. Moderate to severe central canal stenosis at L3-L4, as detailed above. This is due to facet arthrosis with associated intracanalicular synovial cyst ligamentous hypertrophy and disc bulge. Moderate central canal stenosis at L2- L3. 3. Multilevel neural foraminal stenosis, as above. 4. Left paracentral disc extrusion with inferior subligamentous migration at L2- L3 which results in severe narrowing of the left lateral recess. 5. Mild S-shaped scoliosis of the lumbar spine Hip/pelvis XR: IMPRESSION: No acute fracture or dislocation. Appreciate input from Dr. Wagoner who added an MRI pelvis this afternoon Started on gabapentin and scheduled Tylenol with significant improvement of symptoms. Adding Tramadol 50mg Q6H PRN for breakthrough pain 05/17 Pelvis MRI: 1. No acute fracture, osseous erosion or bone marrow edema. 2. Moderate osteoarthritis of the hips. 3. Abnormal appearance of the postmenopausal uterus. Correlation with follow-up ultrasound recommended. 4. Colonic diverticulosis. Pain Management service consulted for foraminal injection continue present pain regimen 05/19 pain improving discussed with Dr. Yee for possible foraminal injection by pain mgt svc tomorrow if insurance authorization is approved RLQ pain Gen surg consulted given significant abd pain on exam this morning Per Dr. Ewing, no acute findings on CT abd/pelvis that would be the cause of her abdominal pain No need for any surgical intervention Since admission pain has migrated to R anterior thigh with radiation to R groin CAD Status post stent Continue aspirin Prediabetes Hemoglobin A1c of 5.19 July 2020 Colon cancer Status post surgical resection Anxiety/mood disorder Stable, PRN ativan DVT prophylaxis. SCDs Re: Possible procedure Full code PT/OT eval in progress lives alone, family nearby plan of care discussed with patient in detail and at length all questions answered she is understanding, agreeable, comfortable with the plan of caref Admission and Anticipated Discharge Date Admission Date: May 15, 2023 Subjective ff up for radiculopathy, etc seen resting in bed, comfortable in good spirits pain well controlled Review of Systems Review of Systems: all noted and negative except for above Physical Exam Physical Exam: General- oriented x 3, not in distress, speaks in sentences with no effort or accessory muscle use Eyes- anicteric Neck- no JVD Lungs- clear breath sounds bilaterally, no rales/wheezes Heart- normal rate, regular rhythm; no murmurs Abdomen- normal bowel sounds, nondistended, soft, nontender Extremities- no pretibial edema, no calf tenderness Neuro- alert, oriented x 3; no gross focal neurologic deficits Skin- warm & dry Results & Data Results & Data Vital Signs (Past 12 Hours) Vital Signs Temp Pulse Resp BP Pulse Ox O2 Del Method 05/19/23 15:50 36.7 C 70 16 124/76 93 Room Air 05/19/23 08:01 36.5 C 64 16 113/72 93 Room Air all noted and reviewed including below
[2023-05-19] MEDS: ASPIRIN 81 MG ECTAB PO SCH (17:04)
[2023-05-20] MEDS: ACETAMINOPHEN 500 MG TAB PO SCH ×3 (05:19→19:36)
[2023-05-20] MEDS: GABAPENTIN 300 MG CAP PO SCH ×2 (09:12→19:36)
[2023-05-20] MEDS: ASPIRIN 81 MG ECTAB PO SCH (09:12)
[2023-05-20] MEDS: LIDOCAINE 5% 1 PATCH TD SCH (09:13)
[2023-05-20] MEDS: traMADol HCL 50 MG TABLET PO PRN ×3 (10:22→23:55)
--- NOTE | 2023-05-20 15:06 | Hospitalist Progress Note ---
Date of Service May 20, 2023 Assessment & Plan (1) Lumbar radiculopathy: (2) Deep right inguinal pain: (3) CAD (coronary artery disease): (4) Depression: Plan per KRANTHI notes with addendum: This is an 83yo F with a PMH of CAD, HTN, pre-diabetes, history of colon ca s/p surgery, mood disorder, lumbar radiculopathy and other medical problems ambulates independently at baseline and had who presents with lower back pain/R flank pain x 1 week. Denies any recent falls or trauma but feels she may have "twisted the wrong way" last week while sleeping. Lumbar radiculopathy Lumbar spine MRI with 1. Severe multilevel facet arthrosis and moderate degenerative disc disease within the lumbar spine. 2. Moderate to severe central canal stenosis at L3-L4, as detailed above. This is due to facet arthrosis with associated intracanalicular synovial cyst ligamentous hypertrophy and disc bulge. Moderate central canal stenosis at L2- L3. 3. Multilevel neural foraminal stenosis, as above. 4. Left paracentral disc extrusion with inferior subligamentous migration at L2- L3 which results in severe narrowing of the left lateral recess. 5. Mild S-shaped scoliosis of the lumbar spine Hip/pelvis XR: IMPRESSION: No acute fracture or dislocation. Appreciate input from Dr. Wagoner who added an MRI pelvis this afternoon Started on gabapentin and scheduled Tylenol with significant improvement of symptoms. Adding Tramadol 50mg Q6H PRN for breakthrough pain 05/17 Pelvis MRI: 1. No acute fracture, osseous erosion or bone marrow edema. 2. Moderate osteoarthritis of the hips. 3. Abnormal appearance of the postmenopausal uterus. Correlation with follow-up ultrasound recommended. 4. Colonic diverticulosis. Pain Management service consulted for foraminal injection continue present pain regimen 05/19 pain improving discussed with Dr. Yee for possible foraminal injection by pain mgt svc tomorrow if insurance authorization is approved 05/20 still waiting on insurance auth, pt not yet ready to d/c RLQ pain Gen surg consulted given significant abd pain on exam this morning Per Dr. Ewing, no acute findings on CT abd/pelvis that would be the cause of her abdominal pain No need for any surgical intervention Since admission pain has migrated to R anterior thigh with radiation to R groin CAD Status post stent Continue aspirin chronic, stable no chest pain/sob Prediabetes Hemoglobin A1c of 5.19 July 2020 Colon cancer Status post surgical resection Anxiety/mood disorder Stable, PRN ativan DVT prophylaxis. SCDs Re: Possible procedure Full code PT/OT has seen patient lives alone, family nearby, plan to d/c to home and daughter to stay with her Pt was seen and examined in collaboration with Dr. Ba, please see addendum Admission and Anticipated Discharge Date Admission Date: May 15, 2023 Supervising Physician Co-Signing Physician Notes Attending Addendum: care coordinated with KRANTHI Kaplan please refer to her notes for full details, I agree with her notes patient seen and examined, records reviewed by myself as well diagnoses and plan of care as per KRANTHI Kaplan's notes Francisco Burrell MD Subjective Patient was seen and examined at 351 bed 1 Follow-up right lower extremity pain. She slept well last night and had a good day yesterday. Even did well with PT. This morning when she woke up she got the severe pain back to R groin and worse with movement. This has her hesitant to go home today. She denies f/c/s, chest pain, sob, n/v/d. She is awaiting auth for injection from pain management. Review of Systems Review of Systems: All systems reviewed & are unremarkable except as noted in HPI & below Physical Exam Physical Exam: Gen: WD/WN, NAD, A&O x3 HEENT: Normocephalic, atraumatic, conjunctivae moist, sclerae anicteric, mucous membranes moist. Lung: Clear to Auscultation bilaterally, no wheezes/rales/rhonchi Heart: Regular rate, regular rhythm, no murmurs, rubs, or gallops Abdomen: Soft, NT, ND +BS x 4 Extremities: No edema Skin: Warm, no rash, negative turgor. Results & Data Results & Data Vital Signs (Past 12 Hours) Vital Signs Temp Pulse Resp BP BP Pulse Ox O2 Del Method 05/20/23 14:40 36.5 C 92 H 18 130/79 93 Room Air 05/20/23 11:25 36.7 C 70 16 110/71 93 Room Air 05/20/23 07:50 93 Room Air 05/20/23 07:26 36.4 C L 70 16 107/70 91 Room Air Medications Administered Current Inpatient Medications Acetaminophen (Acetaminophen 500 Mg Tab) 1,000 mg PO Q8H [facility] Stop: 06/14/23 21:44 Last Admin: 05/20/23 13:42 Dose: 1,000 mg Aspirin (Aspirin 81 Mg Ectab) 81 mg PO DAILY [facility] Stop: 06/18/23 15:44 Last Admin: 05/20/23 09:12 Dose: 81 mg Gabapentin (Gabapentin 300 Mg Cap) 300 mg PO BID [facility] Stop: 06/14/23 11:59 Last Admin: 05/20/23 09:12 Dose: 300 mg Promethazine HCl 6.25 mg/ (Sodium Chloride) 50.25 mls @ 201 mls/hr IV Q6H PRN PRN Reason: Nausea And Vomiting Stop: 06/14/23 00:02 Last Infusion: 05/15/23 13:10 Dose: Infused Lidocaine (Lidocaine 5% 1 Patch) 1 patch TD QAM [facility] Stop: 06/14/23 08:59 Last Admin: 05/20/23 09:13 Dose: 1 patch Lorazepam (Lorazepam 0.5 Mg Tab) 0.5 mg PO BID PRN PRN Reason: Anxiety Stop: 06/14/23 01:16 Last Admin: 05/16/23 16:57 Dose: 0.5 mg Miscellaneous (Remove Lidoderm Patch) 1 each N/A DAILY@2100 [facility] Stop: 06/14/23 20:59 Last Admin: 05/19/23 20:07 Dose: 1 each Morphine Sulfate (Morphine Sulfate 2 Mg/Ml Carp) 2 mg IV Q3H PRN PRN Reason: Pain Stop: 05/29/23 00:02 Last Admin: 05/15/23 05:59 Dose: 2 mg Tramadol HCl (Tramadol Hcl 50 Mg Tablet) 50 mg PO Q6H PRN PRN Reason: Severe Pain (Scale 7, 8, 9,10) Stop: 06/15/23 15:22 Last Admin: 05/20/23 10:22 Dose: 50 mg
[2023-05-21] MEDS: ACETAMINOPHEN 500 MG TAB PO SCH ×2 (05:48→14:24)
[2023-05-21 07:16] VITALS: RESP 16; TEMP 97.7; O2SAT 94
[2023-05-21] MEDS: traMADol HCL 50 MG TABLET PO PRN ×2 (07:25→14:24)
[2023-05-21] MEDS: ASPIRIN 81 MG ECTAB PO SCH (08:24)
[2023-05-21] MEDS: GABAPENTIN 300 MG CAP PO SCH (08:24)
[2023-05-21] MEDS: LIDOCAINE 5% 1 PATCH TD SCH (08:25)
--- NOTE | 2023-05-21 08:45 | Pain Management Progress Note ---
Date of Service May 21, 2023 Assessment & Plan (1) Sacroiliitis: (2) Osteoarthritis of right hip: (3) Lumbar spinal stenosis: Plan Still awaiting insurance approval for right SI joint injection. Once approval has been obtained plan to discharge from the hospital and have her come into the office for an outpatient injection. She will continue her current medication regimen at this time. She has been encouraged to increase her physical activity and she is in agreement. Admission and Anticipated Discharge Date Admission Date: May 15, 2023 Subjective Mrs. Colbert is an 83-year-old female with right hip pain as well as sacroiliitis. She states that her pain has improved since yesterday. She was able to sleep better last night. Tylenol and tramadol have been helpful towards diminishing her pain without any side effects. Also receiving lidocaine patch and gabapentin 300 mg twice daily. She does continue to experience sharp jabbing pain along the right groin and a deep aching pain along the right low back. Physical Exam Physical Exam: GENERAL: This is an 83 year old female in no acute distress. HEAD/FACE: Normocephalic and atraumatic. EYES: No drainage or conjunctival injection. ENT: Nose without bleeding or discharge. Oral mucosa moist. RESPIRATORY: Patient with unlabored breathing. No signs of respiratory distress. CHEST/AXILLA: Chest movement symmetrical. No deformities noted. BACK: Focal tenderness along the right SI joint with overlying myofascial spasm. SKIN: [place], warm and dry. No rash noted. MS/EXTREMITY: Increased pain with right hip ROM. NEURO: Alert and appears oriented. Speech is fluent. Cranial Nerves are grossly intact. PSYCH: Alert, pleasant, affect is calm
--- NOTE | 2023-05-21 12:19 | Discharge Summary ---
Discharge Summary Date of Service May 21, 2023 Notes For Next Care Provider Patient was admitted for acute onset right groin pain. She underwent MRI which reveals moderate to severe canal stenosis at L3-L4 as well as a left paracentral disc extrusion with inferior subligamentous migration at L2-L3 with severe narrowing at the lateral left recess. A pelvic MRI was also ordered which revealed abnormal appearance of postmenopausal uterus and recommends follow-up with ultrasound transvaginally. She was seen and evaluated by pain management. Plan is for patient to undergo a right SI joint injection pending insurance approval. When insurance approval is obtained Dr. Yee will arrange with patient. She was started on regimen of scheduled Tylenol, gabapentin 300 mg twice daily and as needed tramadol which seems to be controlling the pain. She will need close follow-up with pain management as outpatient. Medication Changes From Visit Gabapentin 300 mg twice daily. Tramadol 50 mg every 4 hours as needed for severe pain. Recommend utilizing extra strength Tylenol (500mg), 3 times daily on a scheduled basis until pain is controlled. Lidocaine patch, 5%, apply to R groin in a.m. and remove after 12 hours. It is recommended you have off for 12 hour duration as well. Admission HPI Per Admitting Provider History obtained from patient, family, and records. Medical history significant for CAD status post stent (2010), hypertension, hyperlipidemia, prediabetes, colon cancer status post surgery anxiety/mood disorder, past tobacco abuse. Last confinement 2020 for sigmoid diverticulitis. 1 week history of achy right flank pain symptoms going to her groin and right thigh. No recollection of recent trauma. Similar to past episode of sciatica years ago. No fever, no chills. No unusual weight loss. No chest pain, no SOB. No unusual leg weakness or incontinence symptoms. Patient brought to ER by daughter. 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 Admission Exam Per Admitting Provider GENERAL: Slightly uncomfortable, pleasant, no respiratory distress SKIN: Normal color, warm HEENT: [place] palpebral conjunctivae, no ptosis, moist buccal mucosa NECK : Supple, no tenderness CHEST : CTA, no tenderness HEART : RRR, no obvious murmurs ABDOMEN: Some distention, RLQ tenderness BACK : Low back tenderness, positive SLR right EXTREMITIES : No LE swelling/tenderness, no other conspicuous deformities noted NEUROLOGIC : Coherent, no facial asymmetry, no other gross focality Principal Dx & Hospital Course #1 = Principal Diagnosis (1) Lumbar radiculopathy: (2) Deep right inguinal pain: (3) CAD (coronary artery disease): (4) Depression: Plan This is an 83yo F with a PMH of CAD, HTN, pre-diabetes, history of colon ca s/p surgery, mood disorder, lumbar radiculopathy and other medical problems ambulates independently at baseline and had who presents with lower back pain/R flank pain x 1 week. Denies any recent falls or trauma but feels she may have "twisted the wrong way" last week while sleeping. She underwent lumbar spine MRI which revealed - 1. Severe multilevel facet arthrosis and moderate degenerative disc disease within the lumbar spine.2. Moderate to severe central canal stenosis at L3-L4, as detailed above. This is due to facet arthrosis with associated intracanalicular synovial cyst ligamentous hypertrophy and disc bulge. Moderate central canal stenosis at L2-L3.3. Multilevel neural foraminal stenosis, as above.4. Left paracentral disc extrusion with inferior subligamentous migration at L2-L3 which results in severe narrowing of the left lateral recess.5. Mild S-shaped scoliosis of the lumbar spine. She also underwent Pelvis MRI that revealed No acute fracture, osseous erosion or bone marrow edema.2. Moderate osteoarthritis of the hips. 3. Abnormal appearance of the postmenopausal uterus. Correlation with follow-up ultrasound recommended and 4. Colonic diverticulosis. She was seen and evaluated by orthopedic spine Dr. Wagoner. He felt that her symptoms are likely related to an L1-L2 radiculopathy with some intra-articular hip disease. Dr. Wagoner would like to avoid surgery if possible at this time. Interventional pain management was consulted who is suspecting right inflammatory sacroiliitis and likely osteoarthritis of the right hip. Plan is to undergo right sacroiliac joint injection with subsequent right intra-articular hip injection to improve pain and discomfort. Currently she is pending insurance authorization. She was seen and evaluated by PT/OT and has been able to ambulate. Her daughter is planning to come stay with her to help assist her with daily needs. On day of discharge she is in good spirits and feels pain is under control. She was up ambulating with her daughter last evening and felt comfortable doing so. She is tolerating her diet, passing gas and moving bowels. She offers no other acute concerns and will be discharged home today with close follow-up with pain management and primary care provider. Her chronic medical conditions remained stable throughout hospital stay. Initially her aspirin was on hold due to concern for possible injection but has this remains on hold pending insurance authorization it was resumed. Discharge Exam Gen: WD/WN, NAD, A&O x3 HEENT: Normocephalic, atraumatic, conjunctivae moist, sclerae anicteric, mucous membranes moist. Lung: Clear to Auscultation bilaterally, no wheezes/rales/rhonchi Heart: Regular rate, regular rhythm, no murmurs, rubs, or gallops Abdomen: Soft, NT, ND +BS x 4 Extremities: No edema Skin: Warm, no rash, negative turgor. Updated Medication List Medication Instructions Recorded Confirmed Type aspirin 81 mg tablet,delayed 81 mg PO DAILY 11/08/20 05/14/23 History release (Prabha Low Dose Aspirin) nitroglycerin 0.4 mg sublingual 0.4 mg sublingual UD PRN Chest Pain 11/08/20 05/14/23 History tablet betamethasone dipropionate 0.05 % 1 applic topical BID 05/14/23 05/14/23 History lotion lorazepam 0.5 mg tablet 0.5 mg PO BID PRN Anxiety 05/14/23 05/14/23 History gabapentin 300 mg capsule 300 mg PO BID #60 caps 05/21/23 Rx lidocaine 5 % topical patch 1 patch transdermal QAM #12 ea 05/21/23 Rx tramadol 50 mg tablet 50 mg PO Q6H PRN pain #15 tabs 05/21/23 Rx Hospital Stay Data Consultations 05/14/23 22:50 ED Decision to Admit Stat 05/15/23 05:16 Consult Orthopedic Spine Surgery Routine 05/15/23 11:58 Consult General Surgery Routine 05/17/23 11:39 Consult Pain Management Routine Diagnostic Imagining Performed 05/14/23 18:21 CT abd pelvis IV con only Stat 05/15/23 00:00 CT lumbar spine w con Stat 05/15/23 07:59 MR lumbar spine wo con Routine 05/16/23 13:31 MR pelvis wo con Urgent Pending Results Patient Have Any Pending Studies at Discharge: No Discharge Instructions Given to Patient (Per Discharging Provider) MEDICATION CHANGES: Gabapentin 300 mg twice daily. Tramadol 50 mg every 4 hours as needed for severe pain. Recommend utilizing extra strength Tylenol (500mg), 3 times daily on a scheduled basis until pain is controlled. Lidocaine patch, 5%, apply to R groin in a.m. and remove after 12 hours. It is recommended you have off for 12 hour duration as well. RECOMMENDATIONS FOR FOLLOW-UP: Authorization is still pending with your insurance for an injection with pain management. They will contact you regarding follow up for this. Recommend taking all medications as prescribed. If utilizing Tramadol it is recommend you use over the counter stool softener to prevent constipation. Please follow up with Primary Care Provider as scheduled. OTHER INSTRUCTIONS: Seek medical attention if you have: * temperature above 101 * chest pain or trouble breathing * abdominal pain, nausea, vomiting * diarrhea, dark stools or bloody stools * any unanswered questions or concerns Call 911 if symptoms are severe. Please take good care of yourself. It has been a pleasure taking care of you. Please take care of yourself. If you have any questions regarding your recent hospitalization please contact [facility] and request [facility] Rhysist @ [phone]. Keisha Kaplan PA-C Total Time Total Time Spent Total Time Spent (In Minutes): 45 minutes
[2023-05-21 13:26] VITALS: BP 130/79; PULSE 76
--- OUTSIDE RECORDS SUMMARY | 2023-05-21 15:45 | External Medical Summary | Summary of Care ---
Author Name Unknown Organization [facility] Address [address] [place] [address] Phone [phone] Care Team Providers Care Pet Sitter Name Role Phone Desi Quinonez DO Primary Care Provider [phone] Reason for Visit * Reason Comments eRx-Medication Refill Encounter Details Date Type Department Care Team Description [facility]/10[facility] [address] [facility] [place] [address] Desi Quinonez DO [address] [facility] [place] [address] Panic attacks; TAWANA (generalized anxiety disorder) Allergies Active Allergy Reactions Severity Noted Date Comments Lisinopril Cough 11/06/2011 Procaine Edema face/lips/tongue,Itch ing High 11/26/2016 Penicillins Hives High 08/06/1999 Hives down throat Sulfa Antibiotics Hives High 08/06/1999 Hives down throat Hydrocodone-Acetaminophe n Nausea/vomiting Low 08/23/2010 documented as of this encounter (statuses as of 04/11/2023) Medications Medication Sig Dispensed Refills Start Date End Date Status ASPIRIN EC 81 MG PO TBECIndications:Anam nary atherosclerosis of [place] coronary artery,S/P coronary artery stent placement 1 TABLET DAILY 30 Tab 11 08/26/2011 Active nitroglycerin (NITROSTAT) 0.4 MG SUBLIndications:S/P coronary artery stent placement,Acute non-ST elevation myocardial infarction (NSTEMI) ([facility]) One tablet under tongue if needed for chest pain. May repeat 3 times. If chest pain continues, call 911 25 Tab 11 04/05/2016 Active Betamethasone Dipropionate 0.05 % External Lotion (Diprosone) Apply topically to affected area 2 times a day. Apply to scalp as needed for flares. Taper frequency with improvement. 60 mL 3 11/11/2022 Active LORazepam 0.5 MG Oral Tablet (Ativan)Indications: Panic attacks,TAWANA (generalized anxiety disorder) Take 1 Tab by mouth 2 times a day as needed for Anxiety. 60 Tablet 2 04/11/2023 Active LORazepam 0.5 MG Oral Tablet (Ativan)Indications: Panic attacks,TAWANA (generalized anxiety disorder) Take 1 Tab by mouth 2 times a day as needed for Anxiety. 60 Tablet 0 02/04/2023 04/11/20 23 Discontinued documented as of this encounter (statuses as of 04/11/2023) Active Problems Problem Noted Date Recurrent major depressive disorder, in partial remission 10/22/2022 Major depressive disorder, recurrent, un specified 10/24/2020 Prediabetes 04/24/2020 Overview: Per Prediabetes protocol Inflammation of right sacroiliac joint 1 08/04/2018 Sacroiliitis 09/07/2018 Gastroesophageal reflux disease without esophagitis 09/07/2018 TAWANA (generalized anxiety disorder) 09/07 S/P laparoscopic fundoplication 01/10/20 17 S/P repair of paraesophageal hernia 12/13 History of CA (myocardial infarction) History of colon polyps 12/08/2015 Overview: 12/07/15: rectal polyp, hyperplastic, repeat 3 years (Nov, 2018) 11/09/14: normal colon, repeat in 1 year 12/30/13: colon cancer hepatic flexure. 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 Overview: asymptomatic seen on MRI Allergic rhinitis Adjustment disorder with depressed mood documented as of this encounter (statuses as of 04/11/2023) Resolved Problems Problem Noted Date Resolved Date Kidney disease, chronic, stage III (GFR 30-59 ml /min) 11/18/2016 04/22/2017 Overview: Per CKD protocol #1 Cancer of hepatic flexure 02/08/20142016 Cancer Staging:Clinical: Unsigned Pathologic:Stage I(T2, N0, cM0) - Signed by Dangelo Carrillo MD on 02/08/2014 Family history of thalassemia 12/01/2013 Anemia due to GI blood loss 11/30/201301/12 Anemia 08/27/2011 10/18/2016 Malaise and fatigue 08/26/2011 02/05/2017 Acute CA 07/08/2011 10/18/2016 Closed fracture of part of upper end of humerus 08/26/2010 02/05/2017 Uterine leiomyoma 09/07/2018 Need for prophylactic hormon e replacement therapy (postmenopausal) 09/07/2018 Dermatitis 02/05/2017 documented as of this encounter (statuses as of 04/11/2023) Immunizations Name Administration Dates Next Due COVID-19 mRNA, LNP-s, No Pre serve, 2-Dose Series (Moderna) 09/28/2020,08/31/2020 COVID-19, mRNA, LNP-s, PF, B ooster, 100mcg/0.5mg (Moderna) 05/23/2021 Covid-19, Mrna, Lnp-s, Pf, B ivalent, 50 Mcg, IM, 12 yrs and above (Moderna) 02/05/2023 H1N1 2009 Influenza, IM 09/11/2009 Pneumococcal Conjugate Vacc, 13 Valent (Prevnar) 06/06/2014 Pneumococcal Polysaccharide PPV23 (Pneumovax) 03/25/2007 Seasonal Influenza, PF, 6 mo ns & Above, IM , (Flulaval) 04/14/2020,04/13/2018 Seasonal Influenza, Quadriva lent, No Preserve, IM 05/24/2016,04/19/2015 Seasonal Influenza, Split, I IV3, With Preserve, Inj 05/05/2014,04/01/2013,03/30/2012,04/09,05/22/2010,05/02/2009,04/14/2007 Seasonal Influenza, Trivalen t, Adjuvanted, 65+ yrs 05/03/2019 Seasonal Influenza, Trivalen t, High Dose, No Preserve, IM 04/22/2017 TDAP (age 10 and older)(Boostrix) 04/01/2013 Varicella Zoster Vaccine (Adult) 06/14/2013 Zoster Vaccine Recombinant (Shingrix) 01/25/2021 ,10/25/2020 documented as of this encounter Social History Tobacco Use Types Packs/Day Years Used Date Smoking Tobacco: Former Cigarettes 0.5 25 Q uit: 07/14/2012 Smokeless Tobacco: Never Comments:social smoker/1 pk / wk Alcohol Use Standard Drinks/Week Comments Yes 0 (1 standard drink = 0.6 oz pur e alcohol) rarely Sex Assigned at Date Recorded Not on file Job Start Date Occupation Industry Not on file Not on file Not on file documented as of this encounter Functional Status Functional Status Response Date of Assess ment Are you deaf or do you have serious difficulty h earing? No 01/08/2017 Are you blind or do you have serious difficulty seeing, even when wearing glasses? No 01/08/2017 Do you have serious difficul ty walking or climbing stairs? (5 years old or older) No 01/08/2017 Do you have difficulty dress ing or bathing? (5 years old or older) No 01/08/2017 Because of a physical, menta l, or emotional condition, do you have difficulty doing errands alone such as visiting a doctor s office or shopping? (15 years old or older) No 01/09/20 17 Cognitive Status Response Date of Assessm ent Because of a physical, menta l, or emotional condition, do you have serious difficulty concentrating, remembering, or making decisions? (5 years old or older No 01/08/2017 documented as of this encounter Miscellaneous Notes * Telephone Encounter - Desi Quinonez DO - 04/11/2023 8:56 AM EDTSigned Prescriptions: Disp Refills LORazepam 0.5 MG Oral Tablet (Ativan) 60 Tab*2 Sig: Take 1 Tab by mouth 2 times a day as needed for Anxiety. Authorizing Provider: DESI QUINONEZ * Telephone Encounter - Nellie Sutton [facility] - 04/11/2023 8:22 AM EDTPending Prescriptions: Disp Refills LORazepam 0.5 MG Oral Tablet [Pharmacy Med*60 Tab*0 Sig: Take 1 Tab by mouth 2 times a day as needed for Anxiety. * Telephone Encounter - Nellie Sutton [facility] - 04/11/2023 8:22 AM EDT I have reviewed the patients controlled substance dispensing history in the Prescription Drug Monitoring Program in compliance with the [facility] regulations before prescribing a controlled substance. PDMP checked on 04/11/2023. Pending Prescriptions: Disp Refills LORazepam 0.5 MG Oral Tablet (Ativan) [Ph*60 Tab*0 Sig: Take 1 Tab by mouth 2 times a day as needed for Anxiety. Last Visit: 10/22/2022 (in office), Visit date not found (telemedicine) Next Visit: 05/30/2023 Date medication was last filled: 02/04/23 Date medication is due for refill: 03/05/23 Pharmacy: [facility] [place] [id number] [address] [facility] Is this request for a controlled substance? Yes and Urine Drug Screen Not completed Toxicology results: No results found for this or any previous visit. Please approve if appropriate. Thank You, Nellie Sutton [facility] Clinical Pharmacist [facility] ([facility]) (formerly Telepharmacy) [phone] 04/11/2023, 8:22 AM documented in this encounter Plan of Treatment Upcoming Encounters Date Type Specialty Care Team Description 05/30/2023 Office Visit Family Medicine Desi Quinonez, DO [address] [place] [address] Health Maintenance Due Date Last Done Comments COLONOSCOPY-EVERY 3 YRS AGES 18-100 10/14/2021 10/14/2018, 10/14/2018, 12/07/2015, Additional history exists Depression Screening 06/21/2022 06/21/2021 Influenza Vaccine (FLU shot) (#1) 2023 04/14/2020, 05/03/2019, 04/13/2018, Additional history exists DTaP,Tdap,and Td Vaccines (2 - Td or Tdap) 04/01/2023 04/01/2013, 09/28/2003, 09/16/2003 HbA1c 10/04/2023 10/03/2022, 04/14/2020 DXA Scan 05/24/2025 05/24/2020, 10/12, 09/26/2011, Additional history exists Pneumococcal Vaccine: 65+ Years Completed 06/06/2014, 03/25/2007 Zoster Vaccines Completed 01/25/2021, 10/12, 06/14/2013 COVID-19 Vaccine Completed 02/05/2023, 04/2021, 09/28/2020, Additional history exists GARDASIL-HPV IMMUNIZATION SERIES Aged Out No longer eligible based on patient's age to complete this topic Hepatitis B Aged Out No longer eligi ble based on patient's age to complete this topic MENINGOCOCCAL (MENACTRA/MENVEO) Aged Out No longer eligible based on patient's age to complete this topic documented as of this encounter Medical Devices Implanted Type Area Occupational Health And Safety Adviser Device Identifier Shelf Expiration Date Model / Serial / Lot Alloderm 2x4cm [id number] ( 8 Units ) - [id number] Implanted:Qty : 8 on 01/08/2017 by Wei Jurado MD at OR [facility] Tissue - Human N/A: Abdomen LIFE CELL ROXANA 09/11/2018 [id number] / / [id number] documented as of this encounter Visit Diagnoses Diagnosis Panic attacks Panic disorder without agoraphobia TAWANA (generalized anxiety disorder) Generalized anxiety disorder documented in this encounter Advance Directives Latest Code Status on File Code Status Date Activated Date Inactivated Comments Full Code 01/08/2017 5:51 PM 01/13/2017 4:30 PM This o rder reflects the patients wishes and were consensually agreed upon. Code Status History Code Status Date Activated Date Inactivated Comments Full Code 01/08/2017 11:16 AM 01/08/2017 5:51 PM This order reflects the patients wishes and were consensually agreed upon. Care Teams Pet Sitter Relationship Specialty Start Date End Date Desi Quinonez, DO [address] [place] [address] PCP - General Family Medicine 04/24/16 documented as of this encounter
--- OUTSIDE RECORDS SUMMARY | 2023-05-21 15:46 | External Medical Summary | Summary of Care ---
Author Name Unknown Organization [facility] Address [address] [place] [address] Phone [phone] Care Team Providers Care Planner Name Role Phone Bruce Sheridan Primary Care Provider [phone] Reason for Visit * Reason Comments Excision Pt presents today fo r excision to anterior neck right suprasternal. 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* Allergies Active Allergy Reactions Severity Noted Date Comments Lisinopril Cough 11/06/2011 Procaine Edema face/lips/tongue,Itch ing High 11/26/2016 Penicillins Hives High 08/06/1999 Hives down throat Sulfa Antibiotics Hives High 08/06/1999 Hives down throat Hydrocodone-Acetaminophe n Nausea/vomiting Low 08/23/2010 documented as of this encounter (statuses as of 02/16/2023) Medications Medication Sig Dispensed Refills Start Date End Date Status ASPIRIN EC 81 MG PO TBECIndications:Garcia ry atherosclerosis of [place] coronary artery,S/P coronary artery stent placement 1 TABLET DAILY 30 Tab 11 08/26/2011 Active nitroglycerin (NITROSTAT) 0.4 MG SUBLIndications:S/P coronary artery stent placement,Acute non-ST elevation myocardial infarction (NSTEMI) (HCC) One tablet under tongue if needed for chest pain. May repeat 3 times. If chest pain continues, call 911 25 Tab 11 04/05/2016 Active Betamethasone Dipropionate 0.05 % External Lotion (Diprosone) Apply topically to affected area 2 times a day. Apply to scalp as needed for flares. Taper frequency with improvement. 60 mL 3 11/11/2022 Active LORazepam 0.5 MG Oral Tablet (Ativan)Indications:Pa suzi attacks,TAWANA (generalized anxiety disorder) Take 1 Tab by mouth 2 times a day as needed for Anxiety. 60 Tablet 0 02/04/2023 Active documented as of this encounter (statuses as of 02/16/2023) Active Problems Problem Noted Date Recurrent major depressive disorder, in partial remission 10/22/2022 Major depressive disorder, recurrent, un specified 10/24/2020 Prediabetes 04/24/2020 Overview: Per Prediabetes protocol Inflammation of right sacroiliac joint 1 08/04/2018 Sacroiliitis 09/07/2018 Gastroesophageal reflux disease without esophagitis 09/07/2018 TAWANA (generalized anxiety disorder) 09/07 S/P laparoscopic fundoplication 01/10/20 17 S/P repair of paraesophageal hernia 12/13 History of DE (myocardial infarction) History of colon polyps 12/08/2015 [...] no CKD Dyslipidemia, goal LDL below 100 012 Coronary atherosclerosis of [place] coron brian artery 08/26/2011 S/P coronary artery stent placement 06/14 Overview: RCA and circumflex Benign neoplasm of cerebral meninges 07/2008 Overview: asymptomatic seen on MRI Allergic rhinitis Adjustment disorder with depressed mood documented as of this encounter (statuses as of 02/16/2023) Resolved Problems Problem Noted Date Resolved Date [...] 10/18/2016 Malaise and fatigue 08/26/2011 02/05/2017 Acute DE 07/08/2011 10/18/2016 Closed fracture of part of upper end of humerus 08/26/2010 02/05/2017 Uterine leiomyoma 09/07/2018 Need for prophylactic hormon e replacement therapy (postmenopausal) 09/07/2018 Dermatitis 02/05/2017 documented as of this encounter (statuses as of 02/16/2023) Immunizations Name Administration Dates Next Due COVID-19 mRNA, LNP-s, No Pre serve, 2-Dose Series (Moderna) 09/28/2020,08/31/2020 Covid-19 Mrna, Lnp-s, No Pre serve, Booster (Moderna) 05/23/2021 Covid-19, Mrna, Lnp-s, Pf, B ivalent, 50 Mcg, IM, 12 yrs and above (Moderna) 02/05/2023 H1N1 2009 Influenza, IM 09/11/2009 Pneumococcal Conjugate Vacc, 13 Valent (Prevnar) 06/06/2014 Pneumococcal Polysaccharide PPV23 (Pneumovax) 03/25/2007 Seasonal Influenza, Quadriva lent, No Preserve, 6 Mons & Above, IM 04/14/2020,04/13/2018 Seasonal Influenza, Quadriva lent, No Preserve, [...] No 01/08/2017 documented as of this encounter Progress Notes * Stacy Floyd MD - 02/11/2023 2:00 PM EDT Paola Colbert is a 82 year old female seen at the request of Kari Balderas MD for removal of a lesion on the anterior neck. Pathology as follows: A. Skin, anterior neck R suprasternal, shave: Squamous cell carcinoma in situ Examination Paola Colbert, 82 year old female, is alert, oriented and appears well and in no distress. The following lesion was noted and addressed: 1) Location: anterior neck right suprasternal Appearance: 2 cm x 0.7 cm pink scar Impression: Squamous cell carcinoma in situ, anterior neck right suprasternal Recommendation: 1) The lesion was excised (see separate note) Follow up as needed Stacy Floyd MD MOHS Surgery [facility] [address] [facility] [address] PROCEDURE NOTE Referred by: Kari Balderas MD Preoperative diagnosis: squamous cell carcinoma in situ Postoperative diagnosis: Pending Location: anterior neck, right suprasternal Surgeon(s): Stacy Floyd MD Anesthesia: Lidocaine 0.5% with epinephrine 1:200,000 by local infiltration Procedure: Excision of soft tissue lesion and closure of defect with an intermediate layered repair Estimated blood loss: Less than 5cc Complications: none Preoperative size: 2 cm x 0.7 cm without margins, 3 cm x 1.7 cm with margins Postoperative length of closure: 6 cm Description of procedure: The patient was escorted to the procedure room. Timeout was called. Patient name, medical record number, date and procedure were verified. Verification of positioning,equipment and availability of supplies was executed. Site(s) identified and marked prior to procedure. Patient and staff present were in agreement. The surgical site was examined and excision was planned to take at least 5 mm of normal-appearing skin in all directions. The skin was then locally anesthetized and prepped in the usual fashion. Excision was performed through the full thickness of skin into the subcutaneous tissue. The specimen was submitted in formalin for histologic examination. Meticulous hemostasis was obtained with the electrosurgical device and the defect was closed primarily with a layered repair using deep sutures of 4-0 vicryl and 4-monocryl and superficial sutures of 5-0 fast-absorbing gut. A sterile pressure dressing was placed. Postoperative care: The patient was instructed to cleanse the wound daily, followed by the application of sterile ointment and a nonadherent dressing. I urged the patient to call us if any problems or questions should arise postoperatively. documented in this encounter Nursing Notes * Noemi Reed LPN - 02/11/2023 2:09 PM EDT Chief Complaint Patient presents with Excision Pt presents today for excision to anterior neck right suprasternal. Pt denies pain Referral Doctor: Andrey Hypertension History: No Diabetes History: No Thyroid History: No Bleeding Tendency: No Artificial Valve or Joint: No Pacemaker: no Defibrillator: no Hepatitis/HIV Exposure: No Smoking: yes and no Consent signed yes documented in this encounter Miscellaneous Notes * Result Encounter Note - Stacy Floyd MD - 02/14/2023 7:37 AM EDT Please let patient know that margins are clear and make sure she doesn't have any questions regarding the wound/wound care. A. Skin, anterior neck right suprasternal, excision: Prior procedure site changes; negative for squamous cell carcinoma in situ in the planes of sectionexamined (see comment) Comment: The prior procedure site changes do not extend to an inked margin in the planes of sectionexamined. * Result Encounter Note - Stacy Floyd MD - 02/13/2023 4:46 PM EDT Attempted to call patient, no answer, no option to leave voicemail (voicemail full). Stacy Floyd MD 02/13/2023 4:45 PM documented in this encounter Plan of Treatment Upcoming Encounters Date Type Specialty Care Team Description 05/30/2023 Office Visit Family Medicine Bruce Sheridan, DO [address] [place] [address] 09/11/2023 Office Visit Rheumatology Huang Jaffe MD [address] [place] [address] Health Maintenance Due Date Last Done Comments COLONOSCOPY-EVERY 3 YRS AGES 18-100 10/14/2021 10/14/2018, 10/14/2018, 12/07/2015, Additional history exists Depression Screening, Annual for Pts 12 and Over 06/21/2022 06/21/2021 Influenza Vaccine (FLU shot) (#1) [...] this encounter Medical Devices Implanted Type Area Human Services Program Specialist Device Identifier Shelf Expiration Date Model / Serial / Lot Alloderm 2x4cm [id number] ( 8 Units ) - [id number] Implanted:Qty : 8 on 01/08/2017 by Wei Jurado MD at OR [facility] Tissue - Human N/A: Abdomen LIFE CELL ROXANA 09/11/2018 [id number] / / [id number] documented as of this encounter Procedures Procedure Name Priority Date/Time Associated Diagnosis Comments SURGICAL PATHOLOGY Routine 02/11/2023 3: 17 PM EDT 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 Skin, anterior neck right suprasternal, excision: Prior procedure site changes; negative for squamous cell carcinoma in situ in the planes of section examined (see comment) Comment: The prior procedure site changes do not extend to an inked margin in the planes of section examined. 02/13/2023 3:09 PM EDT LABORATORY [facility] Clinical History See Order Comments 02/13/2023 3:09 PM EDT LABORATORY [facility] Order Comments A. Anterior neck right suprasternal: excision of squamous cell carcinoma in situ, suture at lateral pole 02/13/2023 3:09 PM EDT LAB[facility]ATORY [facility] Gross Description A. Skin. excision Received in formalin with a container labeled with "Paola Colbert", "[id number]", "1940" and " anterior neck right supra sternal". Received is an oriented skin excision measuring 4.8 x 1.6 x 0.3 cm. The surface has is haney-white wrinkled soft shiny and remarkable for a somewhat centrally located irregularly-shaped possibly previously scarred depressed haney-white area measuring approximally 2.0 x 0.6 cm, extending 0.2 cm from the nearest margin. The underlying tissue is differentially inked. The specimen is serially sectioned into 13 pieces and entirely submitted in cassettes A1 through A13, firm attached diagram. Gross By: MR 02/13/2023 3:09 PM EDT LAB[facility]ATORY [facility] Sign Out Location Pathologist sign out performed at [facility] ([facility]), [address] [place] [id number]. 02/13/2023 3:09 PM EDT LABORATORY [facility] Photographic images and diagrams represent lopez findings in this case; they are not intended to replace a complete review of the final diagnostic report. The following statement applies to Flow Cytometry, Histology, In situ Hybridization Assays and Molecular Genetics. This test was developed and performed at [facility] and its performance characteristics determined by [employer]. It has not been cleared or approved by the U.S. Food and Drug Administration. The FDA has determined that such clearance or approval is not necessary. This test is used for clinical purposes. It should not be regarded as investigational or for research. Special stains, including histochemical stains, and studies using immunologic and MARIELLA methodology (where applicable) are performed with appropriate positive and negative control reactions. 02/13/2023 3:09 PM EDT LABORATORY [facility] Tissue Skin structure / Unknown 02/11/2023 3:17 PM EDT 02/11/2023 3:17 PM EDT Comment:A. 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 Care Teams Planner Relationship Specialty Start Date End Date Bruce Sheridan, DO [address] [place] [address] PCP - General Family Medicine 04/24/16 documented as of this encounter
--- OUTSIDE RECORDS SUMMARY | 2023-05-21 15:46 | External Medical Summary | Summary of Care ---
Author Name Unknown Organization [facility] Address [address] [place] [address] Phone [phone] Care Team Providers Care Meringuer Name Role Phone Desi Quinonez DO Primary Care Provider [phone] Reason for Visit * Reason Comments eRx-Medication Refill Encounter Details Date Type Department Care Team Description 02/03/2023 [facility] [address] [facility] [place] [id number] Desi Quinonez DO [address] [facility] [place] [id number] Panic attacks; TAWANA (generalized anxiety disorder) Allergies Active Allergy Reactions Severity Noted Date Comments Lisinopril Cough 11/06/2011 Procaine Edema face/lips/tongue,Itch ing High 11/26/2016 Penicillins Hives High 08/06/1999 Hives down throat Sulfa Antibiotics Hives High 08/06/1999 Hives down throat Hydrocodone-Acetaminophe n Nausea/vomiting Low 08/23/2010 documented as of this encounter (statuses as of 02/04/2023) Medications Medication Sig Dispensed Refills Start Date End Date Status ASPIRIN EC 81 MG PO TBECIndications:Garcia ry atherosclerosis of ak chin coronary artery,S/P coronary artery stent placement 1 TABLET DAILY 30 Tab 11 08/26/2011 Active nitroglycerin (NITROSTAT) 0.4 MG SUBLIndications:S/P coronary artery stent placement,Acute non-ST elevation myocardial infarction (NSTEMI) ([facility]) One tablet under tongue if needed for [...] as of this encounter (statuses as of 02/04/2023) Active Problems Problem Noted Date Recurrent major depressive disorder, in partial remission 10/22/2022 Major depressive disorder, recurrent, un specified 10/24/2020 Prediabetes 04/24/2020 Overview: Per Prediabetes protocol Inflammation of right sacroiliac joint 1 08/04/2018 Sacroiliitis 09/07/2018 Gastroesophageal reflux disease without esophagitis 09/07/2018 TAWANA (generalized anxiety disorder) 09/07 S/P laparoscopic fundoplication 01/10/20 17 S/P repair of paraesophageal hernia 12/13 History of RI (myocardial infarction) History of colon polyps 12/08/2015 [...] LDL below 100 012 Coronary atherosclerosis of ak chin coron brian artery 08/26/2011 S/P coronary artery stent placement 06/14 Overview: RCA and circumflex Benign neoplasm of cerebral meninges 07/2008 Overview: asymptomatic seen on MRI Allergic rhinitis Adjustment disorder with depressed mood documented as of this encounter (statuses as of 02/04/2023) Resolved Problems Problem Noted Date Resolved Date [...] 10/18/2016 Malaise and fatigue 08/26/2011 02/05/2017 Acute RI 07/08/2011 10/18/2016 Closed fracture of part of upper end of humerus 08/26/2010 02/05/2017 Uterine leiomyoma 09/07/2018 Need for prophylactic hormon e replacement therapy (postmenopausal) 09/07/2018 Dermatitis 02/05/2017 documented as of this encounter (statuses as of 02/04/2023) Immunizations Name Administration Dates Next Due COVID-19 mRNA, LNP-s, No Pre serve, 2-Dose Series (Moderna) 09/28/2020,08/31/2020 Covid-19 Mrna, Lnp-s, No Pre serve, Booster (Moderna) 05/23/2021 H1N1 2009 Influenza, IM 09/11/2009 Pneumococcal Conjugate [...] Telephone Encounter - Desi Quinonez DO - 02/04/2023 2:58 PM EDTSigned Prescriptions: Disp Refills LORazepam 0.5 MG Oral Tablet (Ativan) 60 Tab*0 Sig: Take 1 Tab by mouth 2 times a day as needed for Anxiety. Authorizing Provider: DESI QUINONEZ * Telephone Encounter - Missy Medina [facility] - 02/04/2023 11:54 AM EDT Pending Prescriptions: Disp Refills LORazepam 0.5 MG Oral Tablet (Ativan) 60 Tab*0 Sig: Take 1 Tab by mouth 2 times a day as needed for Anxiety. * Telephone Encounter - Missy Medina [facility] - 02/04/2023 11:49 AM EDT Rx d/c from med list 10/02/2022 as "pt preference." Call placed to patient to clarify request - sheis requesting refill. Please issue if appropriate at this time. I have reviewed the patients controlled substance dispensing history in the Prescription Drug Monitoring Program in compliance with the [facility] regulations before prescribing a controlled substance. PDMP checked on 02/04/2023. Pending Prescriptions: Disp Refills LORazepam 0.5 MG Oral Tablet (Ativan) [Ph*60 Tab*0 Sig: Take 1 Tab by mouth 2 times a day as needed for Anxiety. Last Visit: 10/22/2022 (in office), Visit date not found (telemedicine) Next Visit: 05/30/2023 Date medication was last filled: 09/13/2021 Date medication is due for refill: 10/12/2021 [facility] [place] [address] [facility] Is this request for a controlled substance? Yes and Urine Drug Screen Not completed Toxicology results: No results found for this or any previous visit. Please approve if appropriate. Thank you, Missy Medina, PharmD Clinical Pharmacist [facility] 02/04/23 11:53 AM [phone] documented in this encounter Plan of Treatment Upcoming Encounters Date Type Specialty Care Team Description 02/11/2023 Office Visit Dermatology Stacy Floyd MD [address] [facility] [place] [address] 05/30/2023 Office Visit Family Medicine Desi Quinonez DO [address] [facility] [place] [address] 09/11/2023 Office Visit Rheumatology Huang Jaffe MD [address] [facility] [place] [address] Health Maintenance Due Date Last Done Comments COVID-19 Vaccine (4 - Moderna series) 07/18/2021 05/23/2021, 09/28/2020, 08/31/2020 COLONOSCOPY-EVERY 3 YRS AGES 18-100 10/14/2021 10/14/2018, [...] 03/25/2007 Zoster Vaccines Completed 01/25/2021, 10/12, 06/14/2013 GARDASIL-HPV IMMUNIZATION SERIES Aged Out No longer eligible based on patient's age to complete this topic Hepatitis B Aged Out No longer eligi ble based on patient's age to complete this topic MENINGOCOCCAL (MENACTRA/MENVEO) Aged Out No longer eligible based on patient's age to complete this topic documented as of this encounter Medical Devices Implanted Type Area Medical Health Researcher Device Identifier Shelf Expiration Date Model / Serial / Lot Alloderm 2x4cm [id number] ( 8 Units ) - [id number] Implanted:Qty : 8 on 01/08/2017 by Wei Jurado MD at OR [facility] Tissue - Human N/A: Abdomen LIFE CELL ROXANA 09/11/2018 [id number] / / [id number] documented as of this encounter Visit Diagnoses [...] and were consensually agreed upon. Care Teams Meringuer Relationship Specialty Start Date End Date Desi Quinonez, DO [address] [facility] [place] [address] PCP - General Family Medicine 04/24/16 documented as of this encounter
== END 2023-05-21 15:23 | disposition home health service (06) | DRG 552 ==
LOC: ED 17:08 → 3W 17:08 → SUATTDRO 05-15 17:37
DX: Z79.82 Long term (current) use of aspirin; F41.9 Anxiety disorder, unspecified; Z88.2 Allergy status to sulfonamides; K57.30 Diverticulosis of large intestine without perforation or abscess without bleeding; I25.10 Atherosclerotic heart disease of native coronary artery without angina pectoris; Z85.038 Personal history of other malignant neoplasm of large intestine; M25.551 Pain in right hip; Z88.0 Allergy status to penicillin; M48.061 Spinal stenosis, lumbar region without neurogenic claudication; M46.1 Sacroiliitis, not elsewhere classified; F32.A Depression, unspecified; M54.16 Radiculopathy, lumbar region; R93.5 Abnormal findings on diagnostic imaging of other abdominal regions, including retroperitoneum; E78.5 Hyperlipidemia, unspecified; I25.2 Old myocardial infarction; Z95.5 Presence of coronary angioplasty implant and graft; Z87.891 Personal history of nicotine dependence; R73.03 Prediabetes; M16.11 Unilateral primary osteoarthritis, right hip; R10.31 Right lower quadrant pain

== ENCOUNTER 2024-04-14 09:12 | Inpatient (IN) ==
[2024-04-14] MEDS: SODIUM CHLORIDE 0.9% 1,000 ML IV ONE (09:41)
[2024-04-14] MEDS: dexAMETHasone**PF** 10 MG/ML VIAL IV ONE (09:41)
--- NOTE | 2024-04-14 09:41 | Emergency Department Note ---
Impression & Plan Hypoxia, Shortness of breath, Weakness ED Provider Note NAME: KYLE SHERIFF AGE: 84 SEX: F : 1940 ARRIVES VIA: Ambulance INFORMANT: Patient ED PROVIDER(S): Anatoliy Laguerre DO CHIEF COMPLAINT: Shortness of breath and diffuse pain HPI: Patient is an 84-year-old female with a past medical history of CAD, GI bleed, depression who presents to the ER who is COVID-positive. She notes her symptoms initially started 2 to 3 weeks ago. She had a cough, congestion, and sore throat. She recently has become more fatigued and admits to diffuse myalgias and arthralgias throughout her entire body including her chest wall. She admits to persistent pain with breathing which has been present for the past several days. She notes she was seen here and evaluated and did have a scan for this. She notes the shortness of breath has been getting worse. Denies any belly pain, nausea, vomiting, or diarrhea. No dysuria, urgency, or frequency. No other exacerbating or remitting factors. ADDITIONAL HISTORY OBTAINED: Per HPI Chronic Medical/Social Conditions Affecting Care: Per HPI PAST MEDICAL HISTORY:See Below PAST SURGICAL HISTORY:See Below FAMILY HISTORY:See Below SOCIAL HISTORY:See Below HOME MEDICATIONS:See Below ALLERGIES:See Below VITALS:See Below PHYSICAL EXAMINATION: GENERAL: Sitting up in bed, alert, chronically ill-appearing, disheveled with a persistent cough EYE EXAM: normal conjunctiva. OROPHARYNX: mucous membranes are moist LUNGS: Clear to auscultation. Normal chest wall mechanics HEART: no murmurs, S1 normal and S2 normal CHEST: Diffuse anterior chest wall pain tracking down to her abdomen. Seems stated complaint ABDOMEN: abdomen soft, non-tender, normo-active bowel sounds, no masses, no rebound or guarding. UPPER EXTREMITIES: upper extremities are grossly normal. LOWER EXTREMITIES: No pitting edema. Calves are equal bilaterally NEURO EXAM: Normal sensorium, cranial nerves II-XII grossly intact, normal speech, no gross weakness of arms, no gross weakness of legs. MEDICAL DECISION MAKING: Patient is an 84-year-old female who presents ER for above-stated complaint. IV was established and blood work was obtained. Labs show no significant leukocytosis. Mild anemia 11.1. CMP was unremarkable. T. bili was normal. Mild transaminitis of 60. Lipase was normal. Troponin was negative. Chest x- ray shows no obvious focal infiltrate. Patient recent visit was just reviewed which showed no PEs on the CT angio. With this recent study performed with under a week for the same symptoms do not feel this would be beneficial to repeat at this time. Patient was given steroids. Patient was updated bedside. Remained on nasal cannula throughout her stay in the ER and was admitted for further workup. Consults/Care Managements Discussions: Per [facility] Triage Nursing notes reviewed. Limited review of prior medical records performed Vital Signs: reviewed and remarkable for hypoxic Differential diagnosis: Differential diagnoses includes but is not limited to pneumonia, bronchitis, COPD/Asthma exacerbation, pneumothorax, pulmonary embolism, congestive heart failure, acute coronary ER treatment provided: See below Diagnostics interpreted by me include EKG and cardiac monitoring as listed below: -Cardiac Monitoring: An order was placed for continuous cardiac monitoring. The monitor shows a rate of 80 with sinus rhythm. -ECG: Sinus rhythm rate 86 Normal axis No PVCs Inferior Q waves QTc 440 -Laboratory studies:Interpreted by me as stated above in MDM and shown below. Imaging studies: Xrays: As interpreted by me: Portable AP upright 1 view of the chest shows no focal Lutrate CTs show: none Procedures:none Critical Care: I have personally spent 35 minutes of critical care time in the direct management of this patient. This includes bedside care, interpretation of diagnostic studies, and testing, discussion with consultants, patient, and family members, and other required patient management activities. This 35 minutes is in excess of all separately billable procedures. Past Med/Surg History Problem List (Updated 04/14/24 @ 15:23 by Anatoliy Laguerre DO) Weakness (Acute) Shortness of breath (Acute) Hypoxia (Acute) Pneumonia due to COVID-19 virus Acute respiratory failure with hypoxia Chest pain Rib pain (Acute) Lumbar spinal stenosis Osteoarthritis of right hip Sacroiliitis Lumbar radiculopathy Acute pain of right hip (Acute) Deep right inguinal pain (Acute) Diverticulitis (Acute) CAD (coronary artery disease) Sigmoid diverticulitis Pilonidal cyst (Chronic) GI bleed (Chronic) Depression (Chronic) LIGIA (iron deficiency anemia) (Chronic) Medical History Lumbar spinal stenosis Osteoarthritis of right hip Sacroiliitis 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" CAD (coronary artery disease) "06/2011 - inferior STEMI s/p aspiration thrombectomy to LCX with 2 KAYY and KAYY to RCA" On 01/24/14 13:30 Oneida Arroyo wrote "IA 06/2011, 2 KAYY to the circumflex, 1 KAYY to the RCA echo 11/2013 showed EF 60-65%, mild mitral regurgitation " Surgical History S/P repair of paraesophageal hernia S/P cholecystectomy History of oophorectomy, unilateral S/P anal fissurectomy Hx of tubal ligation H/O dilation and curettage Family History Father Heart disease Arthritis Mother Arthritis Social History Smoking Status: Never smoker Tobacco Type: Cigarettes Second Hand Exposure: No; Do You Dip or Chew Tobacco: No; Hx Alcohol Use: Yes Alcohol type: beer Hx Substance Use: No Preferred Language: Portuguese Communication Ability: Effective Buggy Driver Required: No Beliefs That Will Affect Care: None marital status: / Current Living Situation: Alone Other Information That Helps Us Care for You: No Feels Safe at Home: Yes Safety Concerns: Feels Safe At This Time Assistive Devices: Glasses Allergies Allergies Allergy/AdvReac Type Severity Reaction Status Date / Time hydrocodone Allergy Unknown Confusion Verified 04/14/24 11:53 Macrolide Antibiotics Allergy Unknown ALLERGIC Verified 04/14/24 11:53 TO "MYCINS" Penicillins Allergy Unknown HIVES Verified 04/14/24 11:53 Sulfa (Sulfonamide Allergy Unknown HIVES Verified 04/14/24 11:53 Antibiotics) lisinopril AdvReac Unknown cough Verified 04/14/24 11:53 Home Meds Home Medications Medication Instructions Recorded Confirmed aspirin 81 mg tablet,delayed 81 mg PO DAILY 11/08/20 04/14/24 release (Prabha Low Dose Aspirin) nitroglycerin 0.4 mg sublingual 0.4 mg sublingual UD PRN Chest Pain 11/08/20 04/14/24 tablet lorazepam 0.5 mg tablet 0.5 mg PO BID PRN Anxiety 05/14/23 04/14/24 allopurinol 100 mg tablet 100 mg PO QAM 04/11/24 04/14/24 cholecalciferol (vitamin D3) 1,250 1,250 mcg PO WK 04/11/24 04/14/24 mcg (50,000 unit) capsule famotidine 40 mg tablet 40 mg PO QAM 04/11/24 04/14/24 ondansetron HCl 4 mg tablet 4 mg PO Q6 PRN Nausea 04/11/24 04/14/24 Results & Data (ED) Vital Signs Vital Signs - 24 hr 04/14/24 09:12 04/14/24 09:16 04/14/24 09:24 Temperature 36.9 C Temperature Source Oral Pulse Rate 82 87 Pulse Rate [Apical] Respiratory Rate 24 Respiratory Depth Normal Blood Pressure 135/86 Blood Pressure [Right Arm] Blood Pressure Mean 102 Blood Pressure Mean [Right Arm] Blood Pressure Position Lying Pulse Oximetry 89 L 91 Oxygen Delivery Method Room Air Room Air Oxygen Flow Rate Sepsis Recent Fever Within 48 Hours No Sepsis New/Unexplained Change in Mental Status No Sepsis Action Taken by Nursing No Action Required Oxygen Flow Rate - Titration Pulse Oximetry Post Tiitration 04/14/24 09:24 04/14/24 09:34 04/14/24 10:55 Temperature Temperature Source Pulse Rate Pulse Rate [Apical] 78 Respiratory Rate 22 Respiratory Depth Normal Blood Pressure Blood Pressure [Right Arm] 145/86 H Blood Pressure Mean Blood Pressure Mean [Right Arm] 105 Blood Pressure Position Pulse Oximetry 89 L 98 Oxygen Delivery Method Room Air Nasal Cannula Oxygen Flow Rate 2 Sepsis Recent Fever Within 48 Hours Sepsis New/Unexplained Change in Mental Status Sepsis Action Taken by Nursing Oxygen Flow Rate - Titration 2 Pulse Oximetry Post Tiitration 95 Laboratory Data 04/14/24 09:25 04/14/24 09:25 Lab Results 04/14/24 Range/Units 09:25 WBC 9.37 (4.8-10.8) K/ul RBC 4.85 (4.20-5.40) M/uL Hgb 11.1 L (12.0-16.0) g/dl Hct 36.4 L (37.0-47.0) % MCV 75.1 L (80.0-100.0) fL MCH 22.9 L (25.0-34.0) pg MCHC 30.5 L (32.0-36.0) g/dL RDW Std Deviation 49.2 H (36.4-46.3) fL RDW Coeff of Jamar 18.5 H (11.5-14.5) % Plt Count 620 H (130-400) K/uL MPV 9.1 L (9.4-12.4) fL Immature Gran % (Auto) 1.6 % Neut % (Auto) 71.3 % Lymph % (Auto) 18.4 % Bremer % (Auto) 8.5 % Eos % (Auto) 0.0 % Baso % (Auto) 0.2 % Neut # (Auto) 6.68 H (1.40-6.50) K/uL Lymph # (Auto) 1.72 (1.20-3.40) K/uL Bremer # (Auto) 0.80 H (0.11-0.59) K/uL Eos # (Auto) 0.00 (0.00-0.50) K/uL Baso # (Auto) 0.02 (0.00-0.20) K/uL Immature Gran # (Auto) 0.15 (0.01-0.20) K/uL Sodium 138 (136-145) mmol/L Potassium 3.9 (3.5-5.1) mmol/L Chloride 102 (98-107) mmol/L Carbon Dioxide 25 (21-32) mmol/L Anion Gap 11 (3-11) BUN 11 (6-23) mg/dl Creatinine 0.67 (0.6-1.2) mg/dl Est Cr Clr Drug Dosing 52.6 ml/min Est GFR ( Amer) 94.2 ml/min Est GFR (Non-Af Amer) 81.3 ml/min BUN/Creatinine Ratio 16.4 (10-20) Glucose 101 H (70-99(Fasting)) mg/dl Calcium 9.3 (8.6-10.3) mg/dl Total Bilirubin 0.4 (0.2-1.0) mg/dl AST 51 H (13-39) U/L ALT 66 H (7-52) U/L Alkaline Phosphatase 93 (34-104) U/L Troponin I High Sens 5.9 (0-14) pg/ml Total Protein 8.3 (6.0-8.3) gm/dl Albumin 3.5 (3.4-5.0) gm/dl Globulin 4.8 H (2.5-4.0) gm/dl Albumin/Globulin Ratio 0.7 L (0.9-2) Lipase 24 (11-82) U/L Administered Medications Acetaminophen (Acetaminophen 500 Mg Tab) 1,000 mg PO Q8H STAR Stop: 05/14/24 12:29 Last Admin: 04/14/24 14:25 Dose: 1,000 mg Documented By: OO Cyclobenzaprine HCl (Cyclobenzaprine Hcl 5 Mg Tab) 2.5 mg PO BID STAR Stop: 05/14/24 12:29 Last Admin: 04/14/24 14:48 Dose: 2.5 mg Documented By: OO Enoxaparin Sodium (Enoxaparin Inj 40 Mg/0.4 Ml Syr) 40 mg SQ QAM STAR Stop: 05/14/24 13:33 Last Admin: 04/14/24 14:48 Dose: 40 mg Documented By: OO Guaifenesin (Guaifenesin 600 Mg Tabcr) 600 mg PO Q12 STAR Stop: 05/14/24 13:33 Last Admin: 04/14/24 14:47 Dose: 600 mg Documented By: OO Sodium Chloride (Nss) 1,000 mls @ 60 mls/hr IV .[id number] STAR Stop: 04/15/24 05:09 Last Admin: 04/14/24 14:29 Dose: 60 mls/hr Documented By: OO Remdesivir 200 mg/ Sodium (Chloride) 250 mls @ 125 mls/hr IV ONE ONE; Protocol Stop: 04/14/24 15:59 Last Admin: 04/14/24 14:30 Dose: 125 mls/hr Documented By: OO Levalbuterol HCl (Levalbuterol 1.25 Mg/3 Ml Neb) 1.25 mg NEB Q6R STAR Stop: 05/14/24 13:33 Last Admin: 04/14/24 15:06 Dose: 1.25 mg Documented By: TIAGO Pantoprazole Sodium (Pantoprazole 40 Mg Tab) 40 mg PO DAILY STAR Stop: 05/14/24 13:33 Last Admin: 04/14/24 14:47 Dose: 40 mg Documented By: OO Sodium Chloride (Sodium Chlor 7% 4 Ml Neb) 4 ml NEB BIDR STAR Stop: 05/14/24 13:33 Last Admin: 04/14/24 15:06 Dose: 4 ml Documented By: AA Discontinued Medications Dexamethasone Sodium Phosphate (DexamethasonePf 10 Mg/Ml Vial) 6 mg IV NOW ONE Stop: 04/14/24 09:38 Last Admin: 04/14/24 09:41 Dose: 6 mg Documented By: JENNA Sodium Chloride (Nss) 1,000 mls @ 999 mls/hr IV .Q1H1M ONE Stop: 04/14/24 10:37 Last Infusion: 04/14/24 10:55 Dose: Infused Documented By: Admin: 04/14/24 09:41 Dose: 999 mls/hr Documented By: JENNA Ioversol (Optiray 320 125ml) 112 ml IV ONCE ONE Stop: 04/14/24 12:59 Last Admin: 04/14/24 12:58 Dose: 112 ml Documented By: JU Oxycodone HCl (Oxycodone Hcl Ir 5 Mg Tab (Immediate Release)) 5 mg PO NOW STA Stop: 04/14/24 12:29 Last Admin: 04/14/24 14:25 Dose: 5 mg Documented By: OO Imaging Data Radiologist's Impression: Chest X-Ray 04/14/24 09:29 XR chest 1V portable CLINICAL HISTORY: Chest pain, nonspecific COMPARISON STUDY: Chest radiograph and chest CT April 11, 2024. FINDINGS: Elevation of the right hemidiaphragm is unchanged. There is a hiatal hernia. Cardiomegaly is noted. There is no pneumothorax or pleural effusion. Linear bilateral densities favor atelectasis. There is no evidence for overt pulmonary edema. IMPRESSION: 1. Cardiomegaly without radiographic evidence for pulmonary edema. 2. Linear bilateral densities suggestive of atelectasis. ACT 112: Negative or not required by law. Electronically signed by: Jack Horowitz M.D. 04/14/2024 10:25 AM Discharge Plan Visit Data Chief Complaint: Illness Stated Complaint: LOWER LOBE LUNG PAIN ED Provider: Anatoliy Laguerre Discharge Problem: Hypoxia, Shortness of breath, Weakness Patient Disposition: Admitted As Inpatient Discharge Instructions Interventions: ED Discharge Assessment Last Done: 04/14/24 14:59
[2024-04-14 09:51] LABS: Basophils # (auto) 0.02 K/uL (0.00-0.20); Basophils % (auto) 0.2 %; Hematocrit (blood only) 36.4 % (37.0-47.0); Hemoglobin 11.1 g/dl (12.0-16.0); Immature Granulocytes # (auto) 0.15 K/uL (0.01-0.20); Immature Granulocytes % (auto) 1.6 %; Lymphocytes # (auto) 1.72 K/uL (1.20-3.40); Lymphocytes % (auto) 18.4 %; Mean Corpuscular Hemoglobin 22.9 pg (25.0-34.0); Mean Corpuscular Hgb Conc 30.5 g/dL (32.0-36.0); Mean Corpuscular Volume 75.1 fL (80.0-100.0); Mean Platelet Volume 9.1 fL (9.4-12.4); Monocytes % (auto) 8.5 %; Neutrophils # (auto) 6.68 K/uL (1.40-6.50); Neutrophils % (auto) 71.3 %; Platelet Count 620 K/uL (130-400); RDW Coefficient of Variation 18.5 % (11.5-14.5); RDW Standard Deviation 49.2 fL (36.4-46.3); Red Blood Count 4.85 M/uL (4.20-5.40); White Blood Count 9.37 K/ul (4.8-10.8)
[2024-04-14 10:04] LABS: Albumin Globulin Ratio 0.7 (0.9-2); Albumin Level 3.5 gm/dl (3.4-5.0); BUN Creatinine Ratio 16.4 (10-20); Bilirubin,Total 0.4 mg/dl (0.2-1.0); Calcium 9.3 mg/dl (8.6-10.3); Creatinine Clr Calc Pharmacy 52.6 ml/min; Est GFR (African American) 94.2 ml/min; Est GFR (Non-African American) 81.3 ml/min; Globulin 4.8 gm/dl (2.5-4.0); Potassium 3.9 mmol/L (3.5-5.1); Total Protein 8.3 gm/dl (6.0-8.3)
[2024-04-14 10:10] LABS: Troponin I High Sensitivity 5.9 pg/ml (0-14)
--- NOTE | 2024-04-14 10:26 | XRay Report ---
XR chest 1V portable CLINICAL HISTORY: Chest pain, nonspecific COMPARISON STUDY: Chest radiograph and chest CT April 11, 2024. FINDINGS: Elevation of the right hemidiaphragm is unchanged. There is a hiatal hernia. Cardiomegaly i s noted. There is no pneumothorax or pleural effusion. Linear bilateral densities favor atelectasis. There is no evidence for overt pulmonary edema. IMPRESSION: 1. Cardiomegaly without radiographic evidence for pulmonary edema. 2. Linear bilateral densities suggestive of atelectasis. ACT 112: Negative or not required by law. Electronically signed by: Jack Horowitz M.D. 04/14/2024 10:25 AM
[2024-04-14] MEDS: OPTIRAY 320 125ml IV ONE (12:58)
--- NOTE | 2024-04-14 13:00 | CT Scan Report ---
CT chest diagnostic wo con CT DOSE: 465.33 mGy.cm CLINICAL HISTORY: 84 years-old Female with covid 19 infection with hypoxia. Acute shortness of breat h with hypoxia TECHNIQUE: Multiaxial CT images of the chest were performed without contrast. A dose lowering techni que was utilized adhering to the principles of ALARA. COMPARISON: CTA chest 04/11/2024 FINDINGS: Subcentimeter thyroid nodules are again noted. There are a few borderline-enlarged mediasti nal lymph nodes which are likely reactive. The heart is mildly enlarged. Extensive coronary artery ca lcifications. No pericardial effusion or thoracic aortic aneurysm. Trace pleural effusions. No pneumo thorax. Pulmonary emphysema. Mild intralobular septal thickening with dependent linear areas of subse gmental consolidation. Findings are similar to prior. No suspicious pulmonary nodules or masses ident ified. Small fat filled left Bochdalek hernia. Distal esophageal wall thickening with small hiatal hernia. Cholecystectomy. Unremarkable soft tissue s. No acute fracture. IMPRESSION: 1. Cardiomegaly with mild interstitial pulmonary edema, trace pleural effusions with dependent bibasi lar atelectasis 2. No lobar airspace consolidation typical for pneumonia. 3. Pulmonary emphysema. 4. Small hiatal hernia. ACT 112: Negative or not required by law. Electronically signed by: Mert Villalta M.D. 04/14/2024 12:58 PM
--- NOTE | 2024-04-14 13:31 | History & Physical Report ---
Date of Service April 14, 2024 Assessment & Plan (1) Chest pain: (2) Acute respiratory failure with hypoxia: (3) Pneumonia due to COVID-19 virus: Plan: 84-year-old female with history of coronary disease, status post stent placement, GERD, depression/anxiety, presenting with progressive bilateral lower chest pain and shortness of breath in the setting of COVID-19 infection for at least 1 week. Acute hypoxic respiratory failure secondary to pneumonia, COVID-19 infection Was diagnosed at home on April 04, 2024, has completed Paxlovid April 12 Cough seems to be resolving but patient continues to have severe bilateral lower chest pain, radiating to upper abdomen, lower back CT chest: Possible pneumonia bilateral lower lobes, more on the right Lower extremity Doppler: Pending, if negative will order with CT angiogram to rule out PE Respiratory panel pending to rule out coinfection Remdesivir Decadron Xopenex nebs every 6 hours, hypertonic saline nebs every 12 Mucinex Incentive spirometry, flutter valve Bilateral lower chest pain Appears to be musculoskeletal in etiology CT angiogram last April 12 negative for acute PE Check lower extremity Doppler ultrasound, if negative will need to have another CT angiogram to rule out acute PE given risk factors Troponin negative x 1, second troponin pending Tylenol 1 g every 8 hours scheduled Oxycodone 5 mg every 4 hours as needed Flexeril 2.5 mg p.o. every 12 hours scheduled Warm compress Hopefully IV Decadron will also help with pain CAD, status post stent placement Troponin x 1 negative, second pending Check EKG Doubt ACS at this point History of gastric esophageal reflux disease Will place on Protonix 40 mg p.o. daily in light of Decadron IV use History of depression, anxiety disorder On as needed Ativan DVT prophylaxis Lovenox CODE STATUS Full code as per patient Disposition Patient independent with activities of daily living, lives on her own place prior to this admission, daughter lives nearby and visits patient frequently PT OT evaluation History of Present Illness Chief Complaint: Bilateral lower chest pain, shortness of breath times at least 1 week Primary Care Provider: Bruce Sheridan DO 84-year-old female with history of coronary disease, status post stent placement, GERD, depression/anxiety, presenting with progressive bilateral lower chest pain and shortness of breath in the setting of COVID-19 infection for at least 1 week. Patient was doing well, independent and driving, until last April 04, 2024 when she started to have sore throat and productive cough. She tested positive for COVID-19 through a home test kit. Her PCP prescribed the patient with a course of Paxlovid which she has completed last Friday, April 12, 2024. The productive cough has improved but the patient has developed progressive lower chest pain radiating to her upper abdomen and lower back associated with shortness of breath. She presented to the [facility] emergency room last April 12, 2024. CT angiogram was negative for acute PE. She was then sent home. However, patient's lower chest discomfort has continued to progress and now radiates to her entire body, still associated with shortness of breath. She again presented to the ER today, was found to be hypoxic at 88% on room air, requiring 2 L of O2 via nasal cannula. Chest x-ray unrevealing. On exam, patient seen resting in bed, on 2 L of O2, not in distress. Minimal movement causes severe pain, to the point that patient could not even get up from bed today according to the daughter. Otherwise, no dizziness, nausea, vomiting, diarrhea, etc. Allergies Allergy/AdvReac Type Severity Reaction Status Date / Time hydrocodone Allergy Unknown Confusion Verified 04/14/24 11:53 Macrolide Antibiotics Allergy Unknown ALLERGIC Verified 04/14/24 11:53 TO "MYCINS" Penicillins Allergy Unknown HIVES Verified 04/14/24 11:53 Sulfa (Sulfonamide Allergy Unknown HIVES Verified 04/14/24 11:53 Antibiotics) lisinopril AdvReac Unknown cough Verified 04/14/24 11:53 Home Medications Medication Instructions Recorded Confirmed Type aspirin 81 mg tablet,delayed 81 mg PO DAILY 11/08/20 04/14/24 History release (Prabha Low Dose Aspirin) nitroglycerin 0.4 mg sublingual 0.4 mg sublingual UD PRN Chest Pain 11/08/20 04/14/24 History tablet lorazepam 0.5 mg tablet 0.5 mg PO BID PRN Anxiety 05/14/23 04/14/24 History allopurinol 100 mg tablet 100 mg PO QAM 04/11/24 04/14/24 History cholecalciferol (vitamin D3) 1,250 1,250 mcg PO WK 04/11/24 04/14/24 History mcg (50,000 unit) capsule famotidine 40 mg tablet 40 mg PO QAM 04/11/24 04/14/24 History ondansetron HCl 4 mg tablet 4 mg PO Q6 PRN Nausea 04/11/24 04/14/24 History Past Med/Surg History Problem List (Updated 04/14/24 @ 15:23 by Anatoliy Laguerre DO) Weakness (Acute) Shortness of breath (Acute) Hypoxia (Acute) Pneumonia due to COVID-19 virus Acute respiratory failure with hypoxia Chest pain Rib pain (Acute) Lumbar spinal stenosis Osteoarthritis of right hip Sacroiliitis Lumbar radiculopathy Acute pain of right hip (Acute) Deep right inguinal pain (Acute) Diverticulitis (Acute) CAD (coronary artery disease) Sigmoid diverticulitis Pilonidal cyst (Chronic) GI bleed (Chronic) Depression (Chronic) LIGIA (iron deficiency anemia) (Chronic) Medical History Lumbar spinal stenosis Osteoarthritis of right hip Sacroiliitis 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" CAD (coronary artery disease) "06/2011 - inferior STEMI s/p aspiration thrombectomy to LCX with 2 KAYY and KAYY to RCA" On 01/24/14 13:30 Oneida Arroyo wrote "[place] 06/2011, 2 KAYY to the circumflex, 1 KAYY to the RCA echo 11/2013 showed EF 60-65%, mild mitral regurgitation " Surgical History S/P repair of paraesophageal hernia S/P cholecystectomy History of oophorectomy, unilateral S/P anal fissurectomy Hx of tubal ligation H/O dilation and curettage Family History Father Heart disease Arthritis Mother Arthritis Social History Smoking Status: Never smoker Tobacco Type: Cigarettes Second Hand Exposure: No; Do You Dip or Chew Tobacco: No; Hx Alcohol Use: Yes Alcohol type: beer Hx Substance Use: No Preferred Language: Anguill[place] Communication Ability: Effective Manager Group Home Required: No Beliefs That Will Affect Care: None marital status: / Current Living Situation: Alone Other Information That Helps Us Care for You: No Feels Safe at Home: Yes Safety Concerns: Feels Safe At This Time Assistive Devices: Glasses Review of Systems Review of Systems: all noted and negative except for above Physical Exam Physical Exam: General- oriented x 3, not in distress, speaks in sentences with no effort or accessory muscle use seems to be somewhat weak Head- atraumatic Eyes- PERRL, EOMI, anicteric ENT- oropharynx clear Neck- supple, no JVD, no adenopathy, no thyromegaly; carotids +2/2, no bruits appreciated Lungs- Mild rhonchi bilateral bases, no wheezing, good air entry bilaterally Heart- normal rate, regular rhythm; no murmur, no gallop, no rub appreciated Abdomen- normal bowel sounds, nondistended, soft, nontender, no masses or hepatosplenomegaly Extremities- no pretibial edema, no calf tenderness; peripheral pulses intact Neuro- alert, oriented x 3; CN 2-12 grossly intact; motor 5/5 bilaterally;sensation 100% on all extremities; no other gross focal neurologic deficits Skin- warm & dry Results & Data Results & Data Vital Signs (Past 12 Hours) Vital Signs Temp Pulse Pulse Resp BP BP Pulse Ox 04/14/24 12:30 78 22 141/82 H 93 04/14/24 12:00 81 22 142/82 H 97 04/14/24 10:55 78 22 145/86 H 98 04/14/24 09:34 89 L 04/14/24 09:24 36.9 C 87 24 135/86 91 04/14/24 09:16 82 04/14/24 09:12 89 L O2 Del Method O2 Flow Rate 04/14/24 12:30 Nasal Cannula 2 04/14/24 12:00 Nasal Cannula 2 04/14/24 10:55 Nasal Cannula 2 04/14/24 09:34 Room Air 04/14/24 09:24 Room Air 04/14/24 09:16 04/14/24 09:12 Room Air all noted and reviewed including below Code Status & VTE Plan VTE Prophylaxis Plan VTE Prophylaxis will be ordered: Yes
[2024-04-14] MEDS ORDERED: ACETAMINOPHEN 325 MG TAB PO PRN (13:34)
[2024-04-14] MEDS ORDERED: ONDANSETRON INJ 2 MG/ML 2 ML VIAL IV PRN (13:34)
[2024-04-14] MEDS: oxyCODONE HCL IR 5 MG TAB (IMMEDIATE RELEASE) PO STA (14:25)
[2024-04-14] MEDS: ACETAMINOPHEN 500 MG TAB PO SCH (14:25)
[2024-04-14] MEDS: SODIUM CHLORIDE 0.9% 1,000 ML IV SCH (14:29)
[2024-04-14] MEDS: REMDESIVIR 200 MG in SODIUM CHLORIDE 0.9% 210 ML IV ONE (14:30)
[2024-04-14] MEDS: guaiFENesin 600 MG TABCR PO SCH (14:47)
[2024-04-14] MEDS: PANTOprazole 40 MG TAB PO SCH (14:47)
[2024-04-14] MEDS: CYCLOBENZAPRINE HCL 5 MG TAB PO SCH (14:48)
[2024-04-14] MEDS: ENOXAPARIN INJ 40 MG/0.4 ML SYR SQ SCH (14:48)
[2024-04-14] MEDS: LEVALBUTEROL 1.25 MG/3 ML NEB NEB SCH (15:06)
[2024-04-14] MEDS: SODIUM CHLOR 7% 4 ML NEB NEB SCH (15:06)
--- NOTE | 2024-04-14 15:23 | Electrocardiogram Report ---
Test Reason : Blood Pressure : */* mmHG Vent. Rate : 86 BPM Atrial Rate : 86 BPM P-R Int : 144 ms QRS Dur : 88 ms QT Int : 368 ms P-R-T Axes : 28 8 11 degrees QTcB Int : 440 ms Normal sinus rhythm possible Inferior infarct (cited on or before 14-May-2023) Abnormal ECG Confirmed by Bennie Torrez ([id number]) on 04/14/2024 3:22:54 PM Referred By: REFERRED SELF Confirmed By: Bennie Torrez
--- NOTE | 2024-04-14 17:08 | Ultrasound Report ---
ULTRASOUND BILATERAL LOWER EXTREMITY VENOUS CLINICAL HISTORY: Atypical chest pain. Dyspnea. Clinical concern for deep venous thrombosis. COMPARISON STUDY: No priors TECHNIQUE: Real-time, grayscale, and color Doppler sonography of the deep veins of the right and left lower extremity was performed from the inguinal crease to the calf. Compression and augmentation wer e utilized. FINDINGS: There is no sonographic evidence of deep venous thrombosis identified in the right or left lower extremity. The common femoral, superficial femoral, and popliteal veins are patent and normally compressible bilaterally. The greater saphenous vein and the profunda femoris vein at the junction w ith the common femoral vein are clear in both legs. The visualized calf veins are patent bilaterally. IMPRESSION: There is no sonographic evidence of deep venous thrombosis identified in the right or lef t lower extremity. ACT 112: Negative or not required by law. Electronically signed by: Maykel Wilson M.D. 04/14/2024 5:07 PM
--- NOTE | 2024-04-14 17:12 | CT Scan Report ---
CT ANGIOGRAM OF THE CHEST CLINICAL HISTORY: Atypical chest pain COMPARISON STUDY: Chest CT scans dated 04/14/2024 and 04/11/2024. TECHNIQUE: Following the IV administration of 112 cc of Optiray 320, CT angiogram of the chest was pe rformed from the upper abdomen to the thoracic inlet utilizing the pulmonary embolus protocol. Images are reviewed in the axial, sagittal, and coronal planes. 3-D MIPS images are created and assessed. I V contrast was administered without complication. A dose lowering technique was utilized adhering to the principles of ALARA. CT DOSE: 684.14 mGy.cm FINDINGS: Thyroid: Mildly enlarged and heterogeneous. Thoracic aorta: There is atherosclerotic calcification of the thoracic aorta, which is normal in kartik kayley and demonstrates standard 3-vessel arch anatomy. No dissection is seen. Pulmonary vasculature: The pulmonary trunk is normal in caliber. There are no filling defects identif ied in main, lobar, or segmental pulmonary branches to suggest pulmonary embolus. Heart: The heart is enlarged and without pericardial effusion. The coronary arteries are densely calc ified. Lungs and pleural spaces: Evaluation of the lung parenchyma is significantly degraded by motion artif act. Dependent consolidation is again seen at both lung bases. There are trace pleural effusions. The trachea and central airways are clear. A fat-containing Bochdalek hernia is seen on the left. Mediastinum: There is no mediastinal lymphadenopathy. Dolores: Clear. Axillae: There is no axillary lymphadenopathy. Upper abdomen: Cholecystectomy clips are noted. There is mild central intrahepatic biliary ductal dil atation. A small to moderate hiatal hernia is again noted. Skeletal structures: The skeletal structures are osteopenic. No lytic or blastic bony lesions are see n. Degenerative change is seen in the shoulders and spine. IMPRESSION: 1. There is no evidence of pulmonary embolus in the main, lobar, or segmental pulmonary arteries. 2. Cardiomegaly and trace pleural effusions. 3. Dependent airspace consolidation at both lung bases likely represents segmental atelectasis. Corre late clinically. 4. Hiatal hernia. 5. Additional findings as above. ACT 112: Negative or not required by law. Electronically signed by: Maykel Wilson M.D. 04/14/2024 5:10 PM
[2024-04-14 17:29] LABS: Adenovirus PCR Not Detected (NotDetected); Bordetella parapertussis PCR Not Detected (NotDetected); Bordetella pertussis PCR Not Detected (NotDetected); Chlamydia pneumoniae PCR Not Detected (NotDetected); Coronavirus 229E PCR Not Detected (NotDetected); Coronavirus CoV-2 (COVID19)PCR DETECTED (NotDetected); Coronavirus HKU1 PCR Not Detected (NotDetected); Coronavirus NL63 PCR Not Detected (NotDetected); Coronavirus OC43PCR Not Detected (NotDetected); Human Metapneumovirus PCR Not Detected (NotDetected); Influenza A PCR Not Detected (NotDetected); Influenza B PCR Not Detected (NotDetected); Mycoplasma pneumoniae PCR Not Detected (NotDetected); Parainfluenza Virus 1 PCR Not Detected (NotDetected); Parainfluenza Virus 2 PCR Not Detected (NotDetected); Parainfluenza Virus 3 PCR Not Detected (NotDetected); Parainfluenza Virus 4 PCR Not Detected (NotDetected); Respiratory Syncytial VirusPCR Not Detected (NotDetected); Rhinovirus/Enterovirus PCR Not Detected (NotDetected)
--- OUTSIDE RECORDS SUMMARY | 2024-04-14 18:06 | External Medical Summary | Summary of Care ---
Author Name Unknown Organization [facility] Address [address] [address] Phone [phone] Care Team Providers Care Rural Service Engineer Name Role Phone Bruce Sheridan DO Primary Care Provider [phone] Reason for Visit * Reason Onset Date Comments Advice 04/13/2024 advice Encounter Details Date Type Department Care Team (Late st Contact Info) Description 04/13[facility]24 [facility] [address] [facility] [place] [id number] Bruce Sheridan DO [address] [facility] [place] [id number] Advice (advice) Allergies Active Allergy Reactions Criticality Noted Date Comments Lisinopril Cough 11/06/2011 Procaine Edema face/lips/tongue,Itc maxim High 11/26/2016 Penicillins Hives High 08/06/1999 Hives down throat Sulfa Antibiotics Hives High 08/06/1999 Hives down throat Hydrocodone-Acetaminoph en Nausea/vomiting Low 08/23/2010 documented as of this encounter (statuses as of 04/13/2024) Medications Medication Sig Dispensed Refills Start Date End Date Status ASPIRIN EC 81 MG PO TBECIndications:Garcia ry atherosclerosis of [place] coronary artery,S/P coronary artery stent placement 1 TABLET DAILY 30 Tab 11 08/26/2011 Active Betamethasone Dipropionate 0.05 % External Lotion (Diprosone) Apply topically to affected area 2 times a day. Apply to scalp as needed for flares. Taper frequency with improvement. 60 mL 3 11/11/2022 Active Nitroglycerin 0.4 MG Sublingual Tablet Sublingual (Nitrostat)Indications :S/P coronary artery stent placement,Acute non-ST elevation myocardial infarction (NSTEMI) (HCC) One tablet under tongue if needed for chest pain. May repeat 3 times. If chest pain continues, call [phone] 25 Tablet 11 11/17/2023 Active Famotidine 40 MG Oral Tablet (Pepcid)Indications:Ga stroesophageal reflux disease with esophagitis without hemorrhage Take 1 Tablet by mouth in the morning. 30 Tablet 11 11/17/2023 Active LORazepam 0.5 MG Oral Tablet (Ativan)Indications:Pa suzi attacks,TAWANA (generalized anxiety disorder) Take 1 Tablet by mouth 2 times a day as needed for Anxiety. 60 Tablet 2 12/30/2023 Active Allopurinol 100 MG Oral Tablet (Zyloprim)Indications: Acute idiopathic gout, unspecified site Take 1 Tablet by mouth in the morning. 30 Tablet 11 12/30/2023 Active B-12-SL 1000 MCG Sublingual Tablet Sublingual (Cyanocobalamin) Place 1,000 mcg under the tongue in the morning. 90 Tablet 3 01/02/2024 Active Ondansetron HCl 4 MG Oral TabletIndications:Naus ea and vomiting in adult Take 1 Tablet by mouth every 6 hours as needed for Nausea. 10 Tablet 01/09/2024 Active documented as of this encounter (statuses as of 04/13/2024) Active Problems Problem Noted Date Diagnosed Date Recurrent major depressive disorder, in partial remission 10/22/2022 Major depressive disorder, recurrent, unspecifie d 10/24/2020 Inflammation of right sacroiliac joint 9 Sacroiliitis 09/07/2018 Gastroesophageal reflux disease without esophagi tis 09/07/2018 TAWANA (generalized anxiety disorder) 09/07/2018 S/P laparoscopic fundoplication 01/09/2017 S/P repair of paraesophageal hernia 01/09/2017 History of NM (myocardial infarction) 10/18/2016 History of colon polyps 12/08/2015 Overview: 12/07/15: [...] no CKD Dyslipidemia, goal LDL below 100 11/06/2011 Coronary atherosclerosis of [place] coronary yolanda ry 08/26/2011 S/P coronary artery stent placement 07/08/2011 Overview: RCA and circumflex Allergic rhinitis Adjustment disorder with depressed mood documented as of this encounter (statuses as of 04/13/2024) Resolved Problems Problem Noted Date Diagnosed Date Resolved Date Prediabetes 04/24/2020 05/27/2023 Overview: Per Prediabetes protocol Kidney disease, chronic, sta ge III (GFR 30-59 ml/min) 11/18/2016 04/22/2017 Overview: Per CKD protocol #1 Cancer of hepatic flexure 02/08/2014 Cancer Staging:Clinical: Unsigned Pathologic:Stage I(T2, N0, cM0) - Signed by Dangelo Carrillo MD on 02/08/2014 Family history of thalassemia 12/01/2013 09/07/2018 Anemia due to GI blood loss 11/30/2013 02/05/2017 Anemia 08/27/2011 10/18/2016 Malaise and fatigue 08/26/2011 02/06/20 17 Acute NM 07/08/2011 10/18/2016 Closed fracture of part of u pper end of humerus 08/26/2010 02/05/2017 Benign neoplasm of cerebral meninges 05/14/2009 05/27/2023 Overview: asymptomatic seen on MRI Uterine leiomyoma 09/07/2018 Need for prophylactic hormon e replacement therapy (postmenopausal) 09/07/2018 Dermatitis 02/05/2017 documented as of this encounter (statuses as of 04/13/2024) Immunizations Name Administration Dates Next Due COVID-19 mRNA, LNP-s, No Pre serve, 2-Dose Series (Moderna) 09/28/2020,08/31/2020 COVID-19, mRNA, LNP-s, PF, B ooster, 100mcg/0.5mg (Moderna) 05/23/2021 Covid-19, Mrna, Lnp-s, Pf, B ivalent, 50 Mcg, IM, 12 yrs and above (Moderna) 02/05/2023 H1N1 2009 Influenza, IM 09/11/2009 Pneumococcal Conjugate Vacc, 13 Valent (Prevnar) 06/06/2014 Pneumococcal Polysaccharide PPV23 (Pneumovax) 03/25/2007 Seasonal Influenza Vac., MDV , IM, 0.5 mL (Fluzone) 05/05/2014,04/01/2013,03/30/2012,04/09,05/22/2010,05/02/2009,04/14/2007 Seasonal Influenza, High Dos e, Trivalent, PF, IM (Fluzone HD) 04/22/2017 Seasonal Influenza, PF, 6 M & above, IM , (FluLaval or Fluzone) 04/14/2020,04/13/2018 Seasonal Influenza, Quadriva lent Hd (Fluzone Hd) 06/24/2023 Seasonal Influenza, Quadriva lent, No Preserve, IM 05/24/2016,04/19/2015 Seasonal Influenza, Trivalen t, Adjuvanted, 65+ YRS, PF, (Fluad) 05/03/2019 TDAP (age 10 and older)(Boostrix) 12/30/2023, Varicella Zoster Vaccine (Adult) 06/14/2013 Zoster Vaccine Recombinant (Shingrix) 01/25/2021 ,10/25/2020 documented as of this encounter Social History Tobacco Use Types Packs/Day Years Used Date Smoking Tobacco: Former Cigarettes 0.5 25 0 07/14/1987 - 07/14/2012 Smokeless Tobacco: Never Comments:social smoker/1 pk / wk Alcohol Use Standard Drinks/Week Comments Yes 0 (1 standard drink = 0.6 oz pur e alcohol) rarely PHQ-2 Answer Date Recorded PHQ Adult Total Score 1 06/21/2021 Utilities Answer Date Recorded Do you have trouble paying y our heating, water, or electric bill? (Adult - for ages 18 years and over) Not on file 12/30/2023 Is your family able to pay t he heat, water, or electric bill? (Household - for ages 0-17 years) Not on file 12/30/2023 Does your family have access to good internet? (Household - for ages 0-17 years) Not on file 12/30/2023 Social Connections Answer Date Recorded How often do you feel lonely or isolated from those around you? (Adult - for ages 18 years and over) Not on file 12/30/2023 Sex and Gender Information Value Date Recorded Sex Assigned at Not on file Gender Identity Not on file Sexual Orientation Not on file Job Start Date Occupation [...] or making decisions? (5 years old or older) No 01/08/2017 documented as of this encounter Miscellaneous Notes * Telephone Encounter - Bruce Sheridan DO - 04/13/2024 4:52 PM EDT All advice appropriate. I don't have anything to add. * Telephone Encounter - Felicia Del Angel LPN - 04/13/2024 4:31 PM EDT Patient reports "issues" for several weeks. States she just finished Paxlovid on 04/07/24. Went to the ER via ambulance 2 nights ago for breathing issues. She says she tested positive for Covid on 04/02. Patient reports difficulty breathing sometimes. Has taken some mucinex for symptom management. Justfeels tired, run down and unwell. She was given oxycodone by the ER- 5 tabs but she says she took them all already. I told her she could be experiencing rebound symptoms since completing Paxlovid. Told her to be sure she's drinking plenty of water unless she's on fluid restriction which she says she isn't. Patientsaid she's been paying close attention to how much water she's drinking because she's had to have IV fluids in our office on a few occasional. She has an appointment with Dr. Montaño tomorrow afternoon. I told her this message would be forwarded to Dr. Sheridan for review and someone from the office would follow up if he had any recommendations for her and encouraged her to keep the visit tomorrow. * Telephone Encounter - Nitza Norris OSA - 04/13/2024 2:38 PM EDT Pt calling asking if the Dr can call pt back regarding some health issues pt is having. Pt had covid and was on meds for paxlovid and finish with that. Pt was taken to ED due to coughing pt's ribs were hurting so bad. documented in this encounter Plan of Treatment Upcoming Encounters Date Type Department Care Team (Late st Contact Info) Description 04/14/2024 4:40 PM EDT Office Visit General Internal Medicine [facility] [address] [place] [id number] Lilia Montaño MD [address] [place] [id number] 07/27/2024 1:00 PM EST Office Visit Family Practice [facility] [address] [place] [phone] Bruce Sheridan, DO [address] [place] [address] Health Maintenance Due Date Last Done Comments Adult Wellness Visit 06/21/2022 06/21/2021 Depression Monitoring 06/21/2022 06/21/2021 COVID-19 Vaccine ( season) 2024 02/05/2023, 05/23/2021, 09/28/2020, Additional history exists Influenza Vaccine (FLU shot) (#1) 2024 06/24/2023, 04/14/2020, 05/03/2019, Additional history exists DXA Scan 05/24/2025 05/24/2020, 10/12, 09/26/2011, Additional history exists DTap/Tdap Vaccines (3 - Td or Tdap) 12/29/2033 12/30/2023, 04/01/2013, 09/28/2003, Additional history exists Pneumococcal Vaccine: 65+ Years Completed 06/06/2014, 03/25/2007 Colonoscopy Discontinued 10/14/2018, 09/2018, 12/07/2015, Additional history exists Zoster Vaccines Completed 01/25/2021, 10/12, 06/14/2013 HPV (Gardasil) Vaccine Aged Out No lo nger eligible based on patient's age to complete this topic Hepatitis B Vaccine Aged Out No longe r eligible based on patient's age to complete this topic MENINGOCOCCAL (MENACTRA/MENVEO) Aged Out No longer eligible based on patient's age to complete this topic documented as of this encounter Medical Devices Implanted Type Area Artificial Stone Setter Device Identifier Shelf Expiration Date Model / Serial / Lot Alloderm 2x4cm [id number] ( 8 Units ) - [id number] Implanted:Qty : 8 on 01/08/2017 by Wei Jurado MD at OR [facility] Tissue - Human N/A: Abdomen LIFE [employer] ROXANA 09/11/2018 [id number] / / [id number] documented as of this encounter Advance Directives * Full Code (Latest Code Status on File) Date Activated Date Inactivated Comments 01/08/2017 5:51 PM 01/13/2017 4:30 PM This order re flects the patients wishes and were consensually agreed upon. * Full Code Date Activated Date Inactivated Comments 01/08/2017 11:16 AM 01/08/2017 5:51 PM This order reflects the patients wishes and were consensually agreed upon. Care Teams Rural Service Engineer Relationship Specialty Start Date End Date Bruce Sheridan DO [address] [place] [address] PCP - General Family Medicine 04/07/24 documented as of this encounter
[2024-04-14 21:15] LABS: Appearance Urine Clear (Clear); Bacteria Urine Automated None Seen (None Seen); Bilirubin Urine Negative (Negative); Blood Urine Negative (Negative); Cast Urine Automated 0-2 /lpf (0-2); Color Urine Yellow; Epithelial Cell Urine Auto 0-2 /hpf (0-2); Glucose Urine UA Trace (Negative); Ketones Urine Trace (Negative); Leukocyte Esterase Urine Negative (Negative); Nitrite Urine Negative (Negative); Protein Urine 1+ (Negative); RBC Urine Automated 0-2 /hpf (0-2); Specific Gravity Urine > 1.045 (1.000-1.030); Urobilinogen Urine Negative (Negative); WBC Urine Automated 0-5 /hpf (0-5)
[2024-04-15 06:56] LABS: Hematocrit (blood only) 30.6 % (37.0-47.0); Hemoglobin 9.7 g/dl (12.0-16.0); Immature Granulocytes # (auto) 0.05 K/uL (0.01-0.20); Immature Granulocytes % (auto) 0.6 %; Lymphocytes # (auto) 0.78 K/uL (1.20-3.40); Lymphocytes % (auto) 9.4 %; Mean Corpuscular Hemoglobin 23.5 pg (25.0-34.0); Mean Corpuscular Hgb Conc 31.7 g/dL (32.0-36.0); Mean Corpuscular Volume 74.1 fL (80.0-100.0); Mean Platelet Volume 9.2 fL (9.4-12.4); Monocytes # (auto) 0.34 K/uL (0.11-0.59); Monocytes % (auto) 4.1 %; Neutrophils % (auto) 85.9 %; Platelet Count 490 K/uL (130-400); RDW Coefficient of Variation 18.3 % (11.5-14.5); RDW Standard Deviation 49.3 fL (36.4-46.3); Red Blood Count 4.13 M/uL (4.20-5.40); White Blood Count 8.27 K/ul (4.8-10.8)
[2024-04-15 07:14] LABS: BUN Creatinine Ratio 23.1 (10-20); Calcium 8.6 mg/dl (8.6-10.3); Creatinine Clr Calc Pharmacy 54.2 ml/min
[2024-04-15] MEDS ORDERED: DEXAMETHASONE SOD INJ 4 MG/ML VIAL IV SCH (09:00)
[2024-04-15] MEDS: dexAMETHasone 6 MG in SYRINGE 0 ML IV SCH (09:30)
[2024-04-15] MEDS: ASPIRIN 81 MG ECTAB PO SCH (09:31)
[2024-04-15] MEDS: FAMOTIDINE 20 MG TAB PO SCH (09:32)
[2024-04-15] MEDS: allopurinoL 100 MG TAB PO SCH (09:32)
--- NOTE | 2024-04-15 13:59 | Hospitalist Progress Note ---
Date of Service April 15, 2024 Assessment & Plan (1) Chest pain: (2) Acute respiratory failure with hypoxia: (3) Pneumonia due to COVID-19 virus: Plan 84-year-old female with history of coronary disease, status post stent placement, GERD, depression/anxiety, presenting with progressive bilateral lower chest pain and shortness of breath in the setting of COVID-19 infection for at least 1 week. Acute hypoxic respiratory failure COVID-19 infection Was diagnosed at home on April 04, 2024 Has completed [place] April 12 Cough seems to be resolving but patient continues to have severe bilateral lower chest pain, radiating to upper abdomen, lower back CT chest noting "Cardiomegaly with mild interstitial pulmonary edema, trace pleural effusions with dependent bibasilar atelectasis" and pulmonary emphysema. Lower extremity Doppler: negative for DVT Respiratory panel noting COVID 19 infection Decadron Xopenex nebs every 6 hours, hypertonic saline nebs every 12 Mucinex Incentive spirometry, flutter valve Wean oxygen as tolerated continue to monitor Bilateral lower chest pain Appears to be musculoskeletal in etiology CT angiogram last April 12 negative for acute PE CT chest noting "Cardiomegaly with mild interstitial pulmonary edema, trace pleural effusions with dependent bibasilar atelectasis" and pulmonary emphysema. Lower extremity Doppler: negative for DVT Troponin negative x2 Tylenol 1 g every 8 hours scheduled Oxycodone 5 mg every 4 hours as needed Flexeril 2.5 mg p.o. every 12 hours scheduled Warm compress Hopefully IV Decadron will also help with pain Microcytic Anemia Pt with anemia, microcytic AM anemia panel-iron, folate and B12 studies Continue to monitor CAD, status post stent placement Troponin x 2 negative EKG NSR Doubt ACS at this point History of gastric esophageal reflux disease Protonix 40 mg p.o. daily in light of Decadron IV use History of depression, anxiety disorder On as needed Ativan DVT prophylaxis: Lovenox CODE STATUS: Full code as per patient Diet: HH Dispo: PT/OT recs for discharge Admission and Anticipated Discharge Date Admission Date: April 14, 2024 Subjective Patient was seen in the AM. Was sitting up resting comfortably. States she is excited to be feeling much better than the day before. Notes some concern with urination and very little output from the night before, however she states that has improved. Notes that her appetite seems to be returning. Review of Systems Review of Systems: All systems reviewed & are unremarkable except as noted in Subjective Physical Exam Physical Exam: General: Alert, oriented. No acute distress Psych: Appropriate mood and affect Neuro: No gross deficits HEENT: NC/AT CV: RRR Resp: Breath sounds clear but decreased bilaterally, no increased effort of breathing. NC in nares Abdomen: Soft, nontender Extremities: No edema in lower extremities bilaterally. Results & Data Results & Data Vital Signs (Past 12 Hours) Vital Signs Temp Pulse Pulse Resp BP Pulse Ox O2 Del Method 04/15/24 13:02 80 16 94 Nasal Cannula 04/15/24 12:00 Nasal Cannula 04/15/24 11:39 36.6 C 87 19 118/76 95 Nasal Cannula 04/15/24 09:57 64 04/15/24 08:15 66 16 94 Nasal Cannula 04/15/24 07:51 36.7 C 63 19 140/73 94 Nasal Cannula 04/15/24 07:48 Nasal Cannula 04/15/24 03:04 36.6 C 88 18 158/80 H 95 Nasal Cannula O2 Flow Rate 04/15/24 13:02 4 04/15/24 12:00 3 04/15/24 11:39 4 04/15/24 09:57 04/15/24 08:15 3 04/15/24 07:51 3 04/15/24 07:48 3 04/15/24 03:04 2 Diagnostic Findings Chest X-Ray 04/14/24 09:29 XR chest 1V portable CLINICAL HISTORY: Chest pain, nonspecific COMPARISON STUDY: Chest radiograph and chest CT April 11, 2024. FINDINGS: Elevation of the right hemidiaphragm is unchanged. There is a hiatal hernia. Cardiomegaly is noted. There is no pneumothorax or pleural effusion. Linear bilateral densities favor atelectasis. There is no evidence for overt pulmonary edema. IMPRESSION: 1. Cardiomegaly without radiographic evidence for pulmonary edema. 2. Linear bilateral densities suggestive of atelectasis. ACT 112: Negative or not required by law. Electronically signed by: Jack Horowitz M.D. 04/14/2024 10:[address] 04/14/24 11:46 CT chest diagnostic wo con CT DOSE: 465.33 mGy.cm CLINICAL HISTORY: 84 years-old Female with covid 19 infection with hypoxia. Acute shortness of breath with hypoxia TECHNIQUE: Multiaxial CT images of the chest were performed without contrast. A dose lowering technique was utilized adhering to the principles of ALARA. COMPARISON: CTA chest 04/11/2024 FINDINGS: Subcentimeter thyroid nodules are again noted. There are a few borderline-enlarged mediastinal lymph nodes which are likely reactive. The heart is mildly enlarged. Extensive coronary artery calcifications. No pericardial effusion or thoracic aortic aneurysm. Trace pleural effusions. No pneumothorax. Pulmonary emphysema. Mild intralobular septal thickening with dependent linear areas of subsegmental consolidation. Findings are similar to prior. No suspicious pulmonary nodules or masses identified. Small fat filled left Bochdalek hernia. Distal esophageal wall thickening with small hiatal hernia. Cholecystectomy. Unremarkable soft tissues. No acute fracture. IMPRESSION: 1. Cardiomegaly with mild interstitial pulmonary edema, trace pleural effusions with dependent bibasilar atelectasis 2. No lobar airspace consolidation typical for pneumonia. 3. Pulmonary emphysema. 4. Small hiatal hernia. ACT 112: Negative or not required by law. Electronically signed by: Mert Villalta M.D. 04/14/2024 12:58 PM Chest CTA 04/14/24 12:28 CT ANGIOGRAM OF THE CHEST CLINICAL HISTORY: Atypical chest pain COMPARISON STUDY: Chest CT scans dated 04/14/2024 and 04/11/2024. TECHNIQUE: Following the IV administration of 112 cc of Optiray 320, CT angiogram of the chest was performed from the upper abdomen to the thoracic inlet utilizing the pulmonary embolus protocol. Images are reviewed in the axial, sagittal, and coronal planes. 3-D MIPS images are created and assessed. IV contrast was administered without complication. A dose lowering technique was utilized adhering to the principles of ALARA. CT DOSE: 684.14 mGy.cm FINDINGS: Thyroid: Mildly enlarged and heterogeneous. Thoracic aorta: There is atherosclerotic calcification of the thoracic aorta, which is normal in caliber and demonstrates standard 3-vessel arch anatomy. No dissection is seen. Pulmonary vasculature: The pulmonary trunk is normal in caliber. There are no filling defects identified in main, lobar, or segmental pulmonary branches to suggest pulmonary embolus. Heart: The heart is enlarged and without pericardial effusion. The coronary arteries are densely calcified. Lungs and pleural spaces: Evaluation of the lung parenchyma is significantly degraded by motion artifact. Dependent consolidation is again seen at both lung bases. There are trace pleural effusions. The trachea and central airways are clear. A fat-containing Bochdalek hernia is seen on the left. Mediastinum: There is no mediastinal lymphadenopathy. Dolores: Clear. Axillae: There is no axillary lymphadenopathy. Upper abdomen: Cholecystectomy clips are noted. There is mild central intrahepatic biliary ductal dilatation. A small to moderate hiatal hernia is again noted. Skeletal structures: The skeletal structures are osteopenic. No lytic or blastic bony lesions are seen. Degenerative change is seen in the shoulders and spine. IMPRESSION: 1. There is no evidence of pulmonary embolus in the main, lobar, or segmental pulmonary arteries. 2. Cardiomegaly and trace pleural effusions. 3. Dependent airspace consolidation at both lung bases likely represents segmental atelectasis. Correlate clinically. 4. Hiatal hernia. 5. Additional findings as above. ACT 112: Negative or not required by law. Electronically signed by: Maykel Wilson M.D. 04/14/2024 5:10 PM Venous Doppler Study 04/14/24 13:03 ULTRASOUND BILATERAL LOWER EXTREMITY VENOUS CLINICAL HISTORY: Atypical chest pain. Dyspnea. Clinical concern for deep venous thrombosis. COMPARISON STUDY: No priors TECHNIQUE: Real-time, grayscale, and color Doppler sonography of the deep veins of the right and left lower extremity was performed from the inguinal crease to the calf. Compression and augmentation were utilized. FINDINGS: There is no sonographic evidence of deep venous thrombosis identified in the right or left lower extremity. The common femoral, superficial femoral, and popliteal veins are patent and normally compressible bilaterally. The greater saphenous vein and the profunda femoris vein at the junction with the common femoral vein are clear in both legs. The visualized calf veins are patent bilaterally. IMPRESSION: There is no sonographic evidence of deep venous thrombosis identified in the right or left lower extremity. ACT 112: Negative or not required by law. Electronically signed by: Maykel Wilson M.D. 04/14/2024 5:07 PM
--- NOTE | 2024-04-15 16:32 | Electrocardiogram Report ---
Test Reason : Blood Pressure : */* mmHG Vent. Rate : 61 BPM Atrial Rate : 61 BPM P-R Int : 150 ms QRS Dur : 94 ms QT Int : 422 ms P-R-T Axes : 23 -7 -3 degrees QTcB Int : 424 ms Normal sinus rhythm possible Inferior infarct (cited on or before 14-May-2023) Abnormal ECG When compared with ECG of 14-Apr-2024 09:17, No significant change was found Confirmed by Bennie Torrez ([id number]) on 04/15/2024 4:32:01 PM Referred By: REFERRED SELF Confirmed By: Bennie Torrez
[2024-04-15] MEDS ORDERED: oxyCODONE HCL IR 5 MG TAB (IMMEDIATE RELEASE) PO PRN (16:44)
[2024-04-16] MEDS: LORazepam 0.5 MG TAB PO PRN (02:55)
[2024-04-16 06:37] LABS: Basophils # (auto) 0.01 K/uL (0.00-0.20); Basophils % (auto) 0.1 %; Hematocrit (blood only) 31.1 % (37.0-47.0); Hemoglobin 9.7 g/dl (12.0-16.0); Immature Granulocytes # (auto) 0.08 K/uL (0.01-0.20); Immature Granulocytes % (auto) 0.6 %; Lymphocytes % (auto) 4.8 %; Mean Corpuscular Hemoglobin 23.3 pg (25.0-34.0); Mean Corpuscular Hgb Conc 31.2 g/dL (32.0-36.0); Mean Corpuscular Volume 74.8 fL (80.0-100.0); Mean Platelet Volume 9.6 fL (9.4-12.4); Monocytes # (auto) 0.68 K/uL (0.11-0.59); Monocytes % (auto) 4.7 %; Neutrophils # (auto) 12.99 K/uL (1.40-6.50); Neutrophils % (auto) 89.8 %; Platelet Count 590 K/uL (130-400); RDW Coefficient of Variation 18.4 % (11.5-14.5); RDW Standard Deviation 49.2 fL (36.4-46.3); Red Blood Count 4.16 M/uL (4.20-5.40); White Blood Count 14.46 K/ul (4.8-10.8)
[2024-04-16 06:58] LABS: Albumin Globulin Ratio 0.8 (0.9-2); Albumin Level 3.1 gm/dl (3.4-5.0); BUN Creatinine Ratio 22.6 (10-20); Bilirubin,Total 0.2 mg/dl (0.2-1.0); Calcium 8.8 mg/dl (8.6-10.3); Globulin 3.7 gm/dl (2.5-4.0); Magnesium 1.7 mg/dl (1.7-2.4); Phosphorus 2.7 mg/dl (2.5-4.9); Potassium 4.5 mmol/L (3.5-5.1); Total Protein 6.8 gm/dl (6.0-8.3)
[2024-04-16 07:17] LABS: Ferritin 68.7 ng/ml (8-388)
[2024-04-16 07:19] LABS: Folate (Folic Acid),Ser orPlas 9.98 ng/ml (>5.38)
[2024-04-16] MEDS: IRON SUCROSE 200 MG in SODIUM CHLORIDE 0.9% 100 ML IV ONE (09:39)
--- NOTE | 2024-04-16 13:00 | Hospitalist Progress Note ---
Date of Service April 16, 2024 Assessment & Plan (1) Chest pain: (2) Acute respiratory failure with hypoxia: (3) Pneumonia due to COVID-19 virus: Plan 84-year-old female with history of coronary disease, status post stent placement, GERD, depression/anxiety, presenting with progressive bilateral lower chest pain and shortness of breath in the setting of COVID-19 infection for at least 1 week. Acute hypoxic respiratory failure COVID-19 infection Was diagnosed at home on April 04, 2024 Has completed [place] April 12 Cough seems to be resolving but patient continues to have severe bilateral lower chest pain, radiating to upper abdomen, lower back CT chest noting "Cardiomegaly with mild interstitial pulmonary edema, trace pleural effusions with dependent bibasilar atelectasis" and pulmonary emphysema. Lower extremity Doppler: negative for DVT Respiratory panel noting COVID 19 infection Decadron Xopenex nebs every 6 hours, hypertonic saline nebs every 12 Mucinex Incentive spirometry, flutter valve Wean oxygen as tolerated continue to monitor Improving Bilateral lower chest pain Appears to be musculoskeletal in etiology CT angiogram last April 12 negative for acute PE CT chest noting "Cardiomegaly with mild interstitial pulmonary edema, trace pleural effusions with dependent bibasilar atelectasis" and pulmonary emphysema. Lower extremity Doppler: negative for DVT Troponin negative x2 Tylenol 1 g every 8 hours scheduled Oxycodone 5 mg every 4 hours as needed Flexeril 2.5 mg p.o. every 12 hours scheduled Improving Microcytic Anemia Iron Deficiency Anemia Pt with anemia, microcytic AM anemia panel noting iron deficiency anemia. S/p IV Venofer on 04/16 Folate and B12 studies normal Continue to monitor CAD, status post stent placement Troponin x 2 negative EKG NSR Doubt ACS at this point History of gastric esophageal reflux disease Protonix 40 mg p.o. daily in light of Decadron IV use History of depression, anxiety disorder On as needed Ativan DVT prophylaxis: Lovenox CODE STATUS: Full code as per patient Diet: Dispo: PT/OT recs for discharge-home with Admission and Anticipated Discharge Date Admission Date: April 14, 2024 Subjective Patient was seen laying in bed. denied acute concerns but did state that overnight she was very hot and sweaty. States she did not sleep well States her breathing has improved. Feels much better than when she came in. Update provided to patient's daughter Magalie. Review of Systems Review of Systems: All systems reviewed & are unremarkable except as noted in Subjective Physical Exam Physical Exam: General: Alert, oriented. No acute distress Psych: Appropriate mood and affect Neuro: No gross deficits HEENT: NC/AT CV: RRR Resp: Breath sounds clear but decreased bilaterally, no increased effort of breathing. NC in nares Abdomen: Soft, nontender Extremities: No edema in lower extremities bilaterally. Results & Data Results & Data Vital Signs (Past 12 Hours) Vital Signs Temp Pulse Resp BP Pulse Ox O2 Del Method O2 Flow Rate 04/16/24 11:30 36.8 C 67 18 138/77 94 Nasal Cannula 4 04/16/24 07:50 83 18 94 Nasal Cannula 4 04/16/24 07:45 Nasal Cannula 4 04/16/24 07:23 36.4 C L 77 18 132/77 96 Room Air 04/16/24 03:01 36.5 C 98 H 16 162/81 H 91 Nasal Cannula 3 04/16/24 02:06 66 17 98 Nasal Cannula 4
[2024-04-17 06:27] LABS: Basophils # (auto) 0.01 K/uL (0.00-0.20); Basophils % (auto) 0.1 %; Hematocrit (blood only) 33.3 % (37.0-47.0); Hemoglobin 10.2 g/dl (12.0-16.0); Immature Granulocytes # (auto) 0.13 K/uL (0.01-0.20); Lymphocytes # (auto) 1.05 K/uL (1.20-3.40); Lymphocytes % (auto) 7.9 %; Mean Corpuscular Hemoglobin 22.9 pg (25.0-34.0); Mean Corpuscular Hgb Conc 30.6 g/dL (32.0-36.0); Mean Corpuscular Volume 74.8 fL (80.0-100.0); Mean Platelet Volume 9.2 fL (9.4-12.4); Monocytes # (auto) 0.66 K/uL (0.11-0.59); Neutrophils # (auto) 11.42 K/uL (1.40-6.50); Platelet Count 603 K/uL (130-400); RDW Coefficient of Variation 18.6 % (11.5-14.5); RDW Standard Deviation 49.8 fL (36.4-46.3); Red Blood Count 4.45 M/uL (4.20-5.40); White Blood Count 13.27 K/ul (4.8-10.8)
[2024-04-17 06:44] LABS: Albumin Globulin Ratio 0.9 (0.9-2); Albumin Level 3.1 gm/dl (3.4-5.0); Bilirubin,Total 0.2 mg/dl (0.2-1.0); Calcium 8.9 mg/dl (8.6-10.3); Creatinine Clr Calc Pharmacy 44.1 ml/min; Globulin 3.6 gm/dl (2.5-4.0); Magnesium 1.7 mg/dl (1.7-2.4); Phosphorus 2.3 mg/dl (2.5-4.9); Potassium 4.2 mmol/L (3.5-5.1); Total Protein 6.7 gm/dl (6.0-8.3)
[2024-04-17] MEDS ORDERED: SODIUM PHOSPHATE 3 MMOL/1 ML INFUSION IV STA (08:29)
[2024-04-17] MEDS: SODIUM PHOSPHATE 15 MMOL in SODIUM CHLORIDE 0.9% 500 ML IV ONE (09:38)
--- NOTE | 2024-04-17 11:35 | Hospitalist Progress Note ---
Date of Service April 17, 2024 Assessment & Plan (1) Chest pain: (2) Acute respiratory failure with hypoxia: (3) Pneumonia due to COVID-19 virus: Plan 84-year-old female with history of coronary disease, status post stent placement, GERD, depression/anxiety, presenting with progressive bilateral lower chest pain and shortness of breath in the setting of COVID-19 infection for at least 1 week. Acute hypoxic respiratory failure COVID-19 infection Was diagnosed at home on April 04, 2024 Has completed [place]lovid April 12 Cough seems to be resolving but patient continues to have severe bilateral lower chest pain, radiating to upper abdomen, lower back CT chest noting "Cardiomegaly with mild interstitial pulmonary edema, trace pleural effusions with dependent bibasilar atelectasis" and pulmonary emphysema. Lower extremity Doppler: negative for DVT Respiratory panel noting COVID 19 infection Decadron Xopenex nebs every 6 hours, hypertonic saline nebs every 12 Mucinex Incentive spirometry, flutter valve Wean oxygen as tolerated continue to monitor Improving Bilateral lower chest pain Appears to be musculoskeletal in etiology CT angiogram last April 12 negative for acute PE CT chest noting "Cardiomegaly with mild interstitial pulmonary edema, trace pleural effusions with dependent bibasilar atelectasis" and pulmonary emphysema. Lower extremity Doppler: negative for DVT Troponin negative x2 Tylenol 1 g every 8 hours scheduled Oxycodone 5 mg every 4 hours as needed Flexeril 2.5 mg p.o. every 12 hours scheduled Improving Microcytic Anemia Iron Deficiency Anemia Pt with anemia, microcytic AM anemia panel noting iron deficiency anemia. S/p IV Venofer on 04/16 Folate and B12 studies normal Continue to monitor CAD, status post stent placement Troponin x 2 negative EKG NSR Doubt ACS at this point History of gastric esophageal reflux disease Protonix 40 mg p.o. daily in light of Decadron IV use History of depression, anxiety disorder On as needed Ativan DVT prophylaxis: Lovenox CODE STATUS: Full code as per patient Diet: HH Dispo: PT/OT recs for discharge-home with Admission and Anticipated Discharge Date Admission Date: April 14, 2024 Subjective patient was seen lying in bed. States she has been up and working with PT/OT. Does not use oxygen at home and still on oxygen here, agreeable to weaning trial. Denies any shortness of breath, chest pain, palpitations patient asking to be discharged tomorrow given the [employer] game, states no one will be at home. Review of Systems Review of Systems: All systems reviewed & are unremarkable except as noted in Subjective Physical Exam Physical Exam: General: Alert, oriented. No acute distress Psych: Appropriate mood and affect Neuro: No gross deficits HEENT: NC/AT CV: RRR Resp: Breath sounds clear but decreased bilaterally, no increased effort of breathing. NC in nares Abdomen: Soft, nontender Extremities: No edema in lower extremities bilaterally. Results & Data Results & Data Vital Signs (Past 12 Hours) Vital Signs Temp Pulse Resp BP Pulse Ox O2 Del Method O2 Flow Rate 04/17/24 08:00 Nasal Cannula 3 04/17/24 07:54 36.5 C 73 16 133/79 97 Nebulizer 04/17/24 07:44 67 16 95 Nasal Cannula 3 04/17/24 05:38 36.4 C L 74 14 140/86 95 Nasal Cannula 4 04/17/24 01:40 66 16 94 Nasal Cannula 4 04/17/24 00:33 36.5 C 66 20 147/101 H 94 Nasal Cannula 4
[2024-04-18 06:38] LABS: Basophils # (auto) 0.01 K/uL (0.00-0.20); Basophils % (auto) 0.1 %; Eosinophils # (auto) 0.01 K/uL (0.00-0.50); Eosinophils % (auto) 0.1 %; Hemoglobin 10.4 g/dl (12.0-16.0); Immature Granulocytes # (auto) 0.11 K/uL (0.01-0.20); Immature Granulocytes % (auto) 1.2 %; Lymphocytes # (auto) 1.52 K/uL (1.20-3.40); Lymphocytes % (auto) 16.4 %; Mean Corpuscular Hemoglobin 23.1 pg (25.0-34.0); Mean Corpuscular Hgb Conc 30.6 g/dL (32.0-36.0); Mean Corpuscular Volume 75.6 fL (80.0-100.0); Mean Platelet Volume 9.1 fL (9.4-12.4); Monocytes # (auto) 0.66 K/uL (0.11-0.59); Monocytes % (auto) 7.1 %; Neutrophils # (auto) 6.95 K/uL (1.40-6.50); Neutrophils % (auto) 75.1 %; Platelet Count 566 K/uL (130-400); RDW Coefficient of Variation 18.9 % (11.5-14.5); RDW Standard Deviation 51.5 fL (36.4-46.3); White Blood Count 9.26 K/ul (4.8-10.8)
[2024-04-18 07:07] LABS: Albumin Globulin Ratio 0.9 (0.9-2); Albumin Level 3.2 gm/dl (3.4-5.0); BUN Creatinine Ratio 39.4 (10-20); Bilirubin,Total 0.2 mg/dl (0.2-1.0); Calcium 8.6 mg/dl (8.6-10.3); Creatinine Clr Calc Pharmacy 53.4 ml/min; Globulin 3.5 gm/dl (2.5-4.0); Magnesium 1.6 mg/dl (1.7-2.4); Phosphorus 2.1 mg/dl (2.5-4.9); Potassium 4.1 mmol/L (3.5-5.1); Total Protein 6.7 gm/dl (6.0-8.3)
[2024-04-18 09:43] LABS: Cdiff Antigen Negative; Cdiff Toxin A+B Negative Cdiff Toxin (Negative); Cdiff Toxin B Gene (2yr or >) Positive Cdiff Gene (Neg)
--- NOTE | 2024-04-18 12:13 | Hospitalist Progress Note ---
Date of Service April 18, 2024 Assessment & Plan (1) Chest pain: (2) Acute respiratory failure with hypoxia: (3) Pneumonia due to COVID-19 virus: Plan 84-year-old female with history of coronary disease, status post stent placement, GERD, depression/anxiety, presenting with progressive bilateral lower chest pain and shortness of breath in the setting of COVID-19 infection for at least 1 week. Acute hypoxic respiratory failure COVID-19 infection Was diagnosed at home on April 04, 2024 Has completed Paxlovid April 12 Cough seems to be resolving but patient continues to have severe bilateral lower chest pain, radiating to upper abdomen, lower back CT chest noting "Cardiomegaly with mild interstitial pulmonary edema, trace pleural effusions with dependent bibasilar atelectasis" and pulmonary emphysema. Lower extremity Doppler: negative for DVT Respiratory panel noting COVID 19 infection Decadron Xopenex nebs every 6 hours, hypertonic saline nebs every 12 Mucinex Incentive spirometry, flutter valve Wean oxygen as tolerated continue to monitor Improving Bilateral lower chest pain Appears to be musculoskeletal in etiology CT angiogram last April 12 negative for acute PE CT chest noting "Cardiomegaly with mild interstitial pulmonary edema, trace pleural effusions with dependent bibasilar atelectasis" and pulmonary emphysema. Lower extremity Doppler: negative for DVT Troponin negative x2 Tylenol 1 g every 8 hours scheduled Oxycodone 5 mg every 4 hours as needed Flexeril 2.5 mg p.o. every 12 hours scheduled Improving Microcytic Anemia Iron Deficiency Anemia Pt with anemia, microcytic AM anemia panel noting iron deficiency anemia. S/p IV Venofer on 04/16 Folate and B12 studies normal Continue to monitor Diarrhea Started overnight on C. difficile gene positive Given symptoms we will start on po vancomycin 125 mg every 6 hours continue to monitor CAD, status post stent placement Troponin x 2 negative EKG NSR Doubt ACS at this point History of gastric esophageal reflux disease Protonix 40 mg p.o. daily in light of Decadron IV use History of depression, anxiety disorder On as needed Ativan DVT prophylaxis: Lovenox CODE STATUS: Full code as per patient Diet: Dispo: PT/OT recs for discharge-home with hh Admission and Anticipated Discharge Date Admission Date: April 14, 2024 Subjective Patient was seen laying in bed. Overnight with diarrhea, C. difficile gene positive. Notes she does have a history of GI issues. Notes that her shortness of breath is improved, no longer on oxygen. Review of Systems Review of Systems: All systems reviewed & are unremarkable except as noted in Subjective Physical Exam Physical Exam: General: Alert, oriented. No acute distress Psych: Appropriate mood and affect Neuro: No gross deficits HEENT: NC/AT CV: RRR Resp: Breath sounds clear but decreased bilaterally, no increased effort of breathing. Abdomen: Soft, tender diffusely Extremities: No edema in lower extremities bilaterally. Results & Data Results & Data Vital Signs (Past 12 Hours) Vital Signs Temp Pulse Pulse Resp BP Pulse Ox O2 Del Method 04/18/24 08:03 36.2 C L 78 18 143/69 H 92 Room Air 04/18/24 08:00 Room Air 04/18/24 07:35 73 16 98 Room Air 04/18/24 03:31 36.6 C 79 16 136/81 93 Nasal Cannula 04/18/24 00:33 17 97 Nasal Cannula 04/18/24 00:15 73 O2 Flow Rate 04/18/24 08:03 04/18/24 08:00 04/18/24 07:35 04/18/24 03:31 04/18/24 00:33 1 04/18/24 00:15 Diagnostic Findings Chest X-Ray 04/14/24 09:29 XR chest 1V portable CLINICAL HISTORY: Chest pain, nonspecific COMPARISON STUDY: Chest radiograph and chest CT April 11, 2024. FINDINGS: Elevation of the right hemidiaphragm is unchanged. There is a hiatal hernia. Cardiomegaly is noted. There is no pneumothorax or pleural effusion. Linear bilateral densities favor atelectasis. There is no evidence for overt pulmonary edema. IMPRESSION: 1. Cardiomegaly without radiographic evidence for pulmonary edema. 2. Linear bilateral densities suggestive of atelectasis. ACT 112: Negative or not required by law. Electronically signed by: Jack Horowitz M.D. 04/14/2024 10:[address] 04/14/24 11:46 CT chest diagnostic wo con CT DOSE: 465.33 mGy.cm CLINICAL HISTORY: 84 years-old Female with covid 19 infection with hypoxia. Acute shortness of breath with hypoxia TECHNIQUE: Multiaxial CT images of the chest were performed without contrast. A dose lowering technique was utilized adhering to the principles of ALARA. COMPARISON: CTA chest 04/11/2024 FINDINGS: Subcentimeter thyroid nodules are again noted. There are a few borderline-enlarged mediastinal lymph nodes which are likely reactive. The heart is mildly enlarged. Extensive coronary artery calcifications. No pericardial effusion or thoracic aortic aneurysm. Trace pleural effusions. No pneumothorax. Pulmonary emphysema. Mild intralobular septal thickening with dependent linear areas of subsegmental consolidation. Findings are similar to prior. No suspicious pulmonary nodules or masses identified. Small fat filled left Bochdalek hernia. Distal esophageal wall thickening with small hiatal hernia. Cholecystectomy. Unremarkable soft tissues. No acute fracture. IMPRESSION: 1. Cardiomegaly with mild interstitial pulmonary edema, trace pleural effusions with dependent bibasilar atelectasis 2. No lobar airspace consolidation typical for pneumonia. 3. Pulmonary emphysema. 4. Small hiatal hernia. ACT 112: Negative or not required by law. Electronically signed by: Mert Villalta M.D. 04/14/2024 12:58 PM Chest CTA 04/14/24 12:28 CT ANGIOGRAM OF THE CHEST CLINICAL HISTORY: Atypical chest pain COMPARISON STUDY: Chest CT scans dated 04/14/2024 and 04/11/2024. TECHNIQUE: Following the IV administration of 112 cc of Optiray 320, CT angiogram of the chest was performed from the upper abdomen to the thoracic inlet utilizing the pulmonary embolus protocol. Images are reviewed in the axial, sagittal, and coronal planes. 3-D MIPS images are created and assessed. IV contrast was administered without complication. A dose lowering technique was utilized adhering to the principles of ALARA. CT DOSE: 684.14 mGy.cm FINDINGS: Thyroid: Mildly enlarged and heterogeneous. Thoracic aorta: There is atherosclerotic calcification of the thoracic aorta, which is normal in caliber and demonstrates standard 3-vessel arch anatomy. No dissection is seen. Pulmonary vasculature: The pulmonary trunk is normal in caliber. There are no filling defects identified in main, lobar, or segmental pulmonary branches to suggest pulmonary embolus. Heart: The heart is enlarged and without pericardial effusion. The coronary arteries are densely calcified. Lungs and pleural spaces: Evaluation of the lung parenchyma is significantly degraded by motion artifact. Dependent consolidation is again seen at both lung bases. There are trace pleural effusions. The trachea and central airways are clear. A fat-containing Bochdalek hernia is seen on the left. Mediastinum: There is no mediastinal lymphadenopathy. Dolores: Clear. Axillae: There is no axillary lymphadenopathy. Upper abdomen: Cholecystectomy clips are noted. There is mild central intrahepatic biliary ductal dilatation. A small to moderate hiatal hernia is again noted. Skeletal structures: The skeletal structures are osteopenic. No lytic or blastic bony lesions are seen. Degenerative change is seen in the shoulders and spine. IMPRESSION: 1. There is no evidence of pulmonary embolus in the main, lobar, or segmental pulmonary arteries. 2. Cardiomegaly and trace pleural effusions. 3. Dependent airspace consolidation at both lung bases likely represents segmental atelectasis. Correlate clinically. 4. Hiatal hernia. 5. Additional findings as above. ACT 112: Negative or not required by law. Electronically signed by: Maykel Wilson M.D. 04/14/2024 5:10 PM Venous Doppler Study 04/14/24 13:03 ULTRASOUND BILATERAL LOWER EXTREMITY VENOUS CLINICAL HISTORY: Atypical chest pain. Dyspnea. Clinical concern for deep venous thrombosis. COMPARISON STUDY: No priors TECHNIQUE: Real-time, grayscale, and color Doppler sonography of the deep veins of the right and left lower extremity was performed from the inguinal crease to the calf. Compression and augmentation were utilized. FINDINGS: There is no sonographic evidence of deep venous thrombosis identified in the right or left lower extremity. The common femoral, superficial femoral, and popliteal veins are patent and normally compressible bilaterally. The greater saphenous vein and the profunda femoris vein at the junction with the common femoral vein are clear in both legs. The visualized calf veins are patent bilaterally. IMPRESSION: There is no sonographic evidence of deep venous thrombosis ident ified in the right or left lower extremity. ACT 112: Negative or not required by law. Electronically signed by: Maykel Wilson M.D. 04/14/2024 5:07 PM
[2024-04-18] MEDS: VANCOMYCIN HCL 125 MG/2.5ML SOLN PO SCH (12:21)
[2024-04-18] MEDS: CHERRY SYRUP 5 ML UDP PO SCH (12:22)
[2024-04-18] MEDS: MAGNESIUM OXIDE 400 MG TAB PO SCH (12:22)
[2024-04-18] MEDS: LEVALBUTEROL 1.25 MG/3 ML NEB NEB SCH (20:11)
[2024-04-19 06:30] LABS: Basophils # (auto) 0.02 K/uL (0.00-0.20); Basophils % (auto) 0.3 %; Eosinophils # (auto) 0.02 K/uL (0.00-0.50); Eosinophils % (auto) 0.3 %; Hematocrit (blood only) 35.6 % (37.0-47.0); Immature Granulocytes # (auto) 0.14 K/uL (0.01-0.20); Immature Granulocytes % (auto) 1.8 %; Lymphocytes % (auto) 20.2 %; Mean Corpuscular Hemoglobin 23.3 pg (25.0-34.0); Mean Corpuscular Hgb Conc 30.9 g/dL (32.0-36.0); Mean Corpuscular Volume 75.3 fL (80.0-100.0); Mean Platelet Volume 9.1 fL (9.4-12.4); Monocytes # (auto) 0.55 K/uL (0.11-0.59); Monocytes % (auto) 6.9 %; Neutrophils # (auto) 5.61 K/uL (1.40-6.50); Neutrophils % (auto) 70.5 %; Nucleated RBC # (auto) 0.03 K/uL (0.00-0.12); Nucleated RBC % (auto) 0.4 %; Platelet Count 590 K/uL (130-400); RDW Coefficient of Variation 19.4 % (11.5-14.5); RDW Standard Deviation 50.5 fL (36.4-46.3); Red Blood Count 4.73 M/uL (4.20-5.40); White Blood Count 7.94 K/ul (4.8-10.8)
[2024-04-19 06:43] LABS: Albumin Globulin Ratio 0.9 (0.9-2); Albumin Level 3.2 gm/dl (3.4-5.0); BUN Creatinine Ratio 32.4 (10-20); Bilirubin,Total 0.3 mg/dl (0.2-1.0); Calcium 8.6 mg/dl (8.6-10.3); Creatinine Clr Calc Pharmacy 49.7 ml/min; Globulin 3.5 gm/dl (2.5-4.0); Magnesium 1.7 mg/dl (1.7-2.4); Phosphorus 2.4 mg/dl (2.5-4.9); Potassium 4.2 mmol/L (3.5-5.1); Total Protein 6.7 gm/dl (6.0-8.3)
[2024-04-19] MEDS ORDERED: SODIUM PHOSPHATE 3 MMOL/1 ML INFUSION IV STA (08:08)
[2024-04-19] MEDS: SODIUM PHOSPHATE 15 MMOL in SODIUM CHLORIDE 0.9% 250 ML IV ONE (09:36)
--- NOTE | 2024-04-19 14:03 | Hospitalist Progress Note ---
Date of Service April 19, 2024 Assessment & Plan (1) Chest pain: (2) Acute respiratory failure with hypoxia: (3) Pneumonia due to COVID-19 virus: Plan 84-year-old female with history of coronary disease, status post stent placement, GERD, depression/anxiety, presenting with progressive bilateral lower chest pain and shortness of breath in the setting of COVID-19 infection for at least 1 week. Acute hypoxic respiratory failure COVID-19 infection Was diagnosed at home on April 04, 2024 Has completed Paxlovid April 12 Cough seems to be resolving but patient continues to have severe bilateral lower chest pain, radiating to upper abdomen, lower back CT chest noting "Cardiomegaly with mild interstitial pulmonary edema, trace pleural effusions with dependent bibasilar atelectasis" and pulmonary emphysema. Lower extremity Doppler: negative for DVT Respiratory panel noting COVID 19 infection Decadron Xopenex nebs every 6 hours, hypertonic saline nebs every 12 Mucinex Incentive spirometry, flutter valve Wean oxygen as tolerated continue to monitor Improving Bilateral lower chest pain Appears to be musculoskeletal in etiology CT angiogram last April 12 negative for acute PE CT chest noting "Cardiomegaly with mild interstitial pulmonary edema, trace pleural effusions with dependent bibasilar atelectasis" and pulmonary emphysema. Lower extremity Doppler: negative for DVT Troponin negative x2 Tylenol 1 g every 8 hours scheduled Oxycodone 5 mg every 4 hours as needed Flexeril 2.5 mg p.o. every 12 hours scheduled Improving Microcytic Anemia Iron Deficiency Anemia Pt with anemia, microcytic AM anemia panel noting iron deficiency anemia. S/p IV Venofer on 04/16 Folate and B12 studies normal Continue to monitor Diarrhea Started overnight on C. difficile gene positive Given symptoms we will start on po vancomycin 125 mg every 6 hours continue to monitor improving CAD, status post stent placement Troponin x 2 negative EKG NSR Doubt ACS at this point History of gastric esophageal reflux disease Protonix 40 mg p.o. daily in light of Decadron IV use History of depression, anxiety disorder On as needed Ativan DVT prophylaxis: Lovenox CODE STATUS: Full code as per patient Diet: Dispo: PT/OT recs for discharge-home with hh Admission and Anticipated Discharge Date Admission Date: April 14, 2024 Subjective patient was seen laying in bed. Notes that she was awakened early this morning for care and affecting her sleep. However she notes that even though her diarrhea is improving she would like an additional day in the hospital. Notes she lives alone and would like to be completely asymptomatic before discharge. Denies any dizziness, chest pain, shortness of breath, palpitations, nausea vomiting Review of Systems Review of Systems: All systems reviewed & are unremarkable except as noted in Subjective Physical Exam Physical Exam: General: Alert, oriented. No acute distress Psych: Appropriate mood and affect Neuro: No gross deficits HEENT: NC/AT CV: RRR Resp: Breath sounds clear but decreased bilaterally, no increased effort of breathing. Abdomen: Soft, tender diffusely Extremities: No edema in lower extremities bilaterally. Results & Data Results & Data Vital Signs (Past 12 Hours) Vital Signs Temp Pulse Pulse Resp BP Pulse Ox O2 Del Method 04/19/24 11:43 36.8 C 95 H 18 113/77 93 Room Air 04/19/24 08:37 36.7 C 87 18 102/67 95 Room Air 04/19/24 07:36 79 18 91 Room Air 04/19/24 03:21 36.7 C 74 16 120/82 96 Room Air
[2024-04-20 02:48] VITALS: TEMP 97.9
[2024-04-20 06:56] LABS: Basophils # (auto) 0.01 K/uL (0.00-0.20); Basophils % (auto) 0.1 %; Eosinophils # (auto) 0.09 K/uL (0.00-0.50); Eosinophils % (auto) 1.1 %; Hemoglobin 10.8 g/dl (12.0-16.0); Immature Granulocytes # (auto) 0.19 K/uL (0.01-0.20); Immature Granulocytes % (auto) 2.4 %; Lymphocytes # (auto) 1.87 K/uL (1.20-3.40); Lymphocytes % (auto) 23.7 %; Mean Corpuscular Hemoglobin 23.5 pg (25.0-34.0); Mean Corpuscular Hgb Conc 31.8 g/dL (32.0-36.0); Mean Corpuscular Volume 74.1 fL (80.0-100.0); Mean Platelet Volume 9.1 fL (9.4-12.4); Monocytes # (auto) 0.49 K/uL (0.11-0.59); Monocytes % (auto) 6.2 %; Neutrophils # (auto) 5.24 K/uL (1.40-6.50); Neutrophils % (auto) 66.5 %; Platelet Count 575 K/uL (130-400); RDW Standard Deviation 48.9 fL (36.4-46.3); Red Blood Count 4.59 M/uL (4.20-5.40); White Blood Count 7.89 K/ul (4.8-10.8)
[2024-04-20 07:24] LABS: Albumin Level 3.3 gm/dl (3.4-5.0); BUN Creatinine Ratio 34.2 (10-20); Bilirubin,Total 0.3 mg/dl (0.2-1.0); Calcium 8.7 mg/dl (8.6-10.3); Creatinine Clr Calc Pharmacy 46.4 ml/min; Globulin 3.3 gm/dl (2.5-4.0); Magnesium 1.8 mg/dl (1.7-2.4); Phosphorus 2.4 mg/dl (2.5-4.9); Total Protein 6.6 gm/dl (6.0-8.3)
--- NOTE | 2024-04-20 10:18 | Discharge Summary ---
Discharge Summary Date of Service April 20, 2024 Principal Dx & Hospital Course #1 = Principal Diagnosis (1) Chest pain: (2) Acute respiratory failure with hypoxia: (3) Pneumonia due to COVID-19 virus: Plan 84-year-old female with history of coronary disease, status post stent placement, GERD, depression/anxiety, presenting with progressive bilateral lower chest pain and shortness of breath in the setting of COVID-19 infection for at least 1 week. Acute hypoxic respiratory failure COVID-19 infection Was diagnosed at home on April 04, 2024 Has completed Paxlovid April 12 Cough seems to be resolving but patient continues to have severe bilateral lower chest pain, radiating to upper abdomen, lower back CT chest noting "Cardiomegaly with mild interstitial pulmonary edema, trace pleural effusions with dependent bibasilar atelectasis" and pulmonary emphysema. Lower extremity Doppler: negative for DVT Respiratory panel noting COVID 19 infection Decadron Xopenex nebs every 6 hours, hypertonic saline nebs every 12 Mucinex Incentive spirometry, flutter valve Weaned oxygen as tolerated Two step indicating patient does not need oxygen for discharge patient stable for discharge, not on oxygen at the time of discharge Bilateral lower chest pain Appears to be musculoskeletal in etiology CT angiogram last April 12 negative for acute PE CT chest noting "Cardiomegaly with mild interstitial pulmonary edema, trace pleural effusions with dependent bibasilar atelectasis" and pulmonary emphysema. Lower extremity Doppler: negative for DVT Troponin negative x2 Tylenol 1 g every 8 hours scheduled Oxycodone 5 mg every 4 hours as needed Flexeril 2.5 mg p.o. every 12 hours scheduled improved on discharge Microcytic Anemia Iron Deficiency Anemia Pt with anemia, microcytic AM anemia panel noting iron deficiency anemia. S/p IV Venofer on 04/16 Folate and B12 studies normal hemoglobin 10.8, stable on discharge Diarrhea Started overnight on 04/17/2024 C. difficile gene positive Given symptoms we will start on po vancomycin 125 mg every 6 hours diarrhea improved on discharge, continue with p.o. vancomycin 125 mg 4 times daily for 8 more days CAD, status post stent placement Troponin x 2 negative EKG NSR Doubt ACS at this point History of gastric esophageal reflux disease Protonix 40 mg p.o. daily in light of Decadron IV use PCP follow-up History of depression, anxiety disorder On as needed Ativan Notes For Next Care Provider please ensure resolution of C. difficile symptoms Medication Changes From Visit p.o. vancomycin 125 mg 4 times daily for 8 more days Admission HPI Per Admitting Provider 84-year-old female with history of coronary disease, status post stent placement, GERD, depression/anxiety, presenting with progressive bilateral lower chest pain and shortness of breath in the setting of COVID-19 infection for at least 1 week. Patient was doing well, independent and driving, until last April 04, 2024 when she started to have sore throat and productive cough. She tested positive for COVID-19 through a home test kit. Her PCP prescribed the patient with a course of Paxlovid which she has completed last Friday, April 12, 2024. The productive cough has improved but the patient has developed progressive lower chest pain radiating to her upper abdomen and lower back associated with shortness of breath. She presented to the [facility] emergency room last April 12, 2024. CT angiogram was negative for acute PE. She was then sent home. However, patient's lower chest discomfort has continued to progress and now radiates to her entire body, still associated with shortness of breath. She again presented to the ER today, was found to be hypoxic at 88% on room air, requiring 2 L of O2 via nasal cannula. Chest x-ray unrevealing. On exam, patient seen resting in bed, on 2 L of O2, not in distress. Minimal movement causes severe pain, to the point that patient could not even get up from bed today according to the daughter. Otherwise, no dizziness, nausea, vomiting, diarrhea, etc. Admission Exam Per Admitting Provider General- oriented x 3, not in distress, speaks in sentences with no effort or accessory muscle use seems to be somewhat weak Head- atraumatic Eyes- PERRL, EOMI, anicteric ENT- oropharynx clear Neck- supple, no JVD, no adenopathy, no thyromegaly; carotids +2/2, no bruits appreciated Lungs- Mild rhonchi bilateral bases, no wheezing, good air entry bilaterally Heart- normal rate, regular rhythm; no murmur, no gallop, no rub appreciated Abdomen- normal bowel sounds, nondistended, soft, nontender, no masses or hepatosplenomegaly Extremities- no pretibial edema, no calf tenderness; peripheral pulses intact Neuro- alert, oriented x 3; CN 2-12 grossly intact; motor 5/5 bilatera lly;sensation 100% on all extremities; no other gross focal neurologic deficits Skin- warm & dry Discharge Exam General: Alert, oriented. No acute distress Psych: Appropriate mood and affect Neuro: No gross deficits HEENT: NC/AT CV: RRR Resp: Breath sounds clear but decreased bilaterally, no increased effort of breathing. Abdomen: Soft, tender diffusely Extremities: No edema in lower extremities bilaterally. Updated Medication List Medication Instructions Recorded Confirmed Type aspirin 81 mg tablet,delayed 81 mg PO DAILY 11/08/20 04/14/24 History release (Prabha Low Dose Aspirin) nitroglycerin 0.4 mg sublingual 0.4 mg sublingual UD PRN Chest Pain 11/08/20 04/14/24 History tablet lorazepam 0.5 mg tablet 0.5 mg PO BID PRN Anxiety 05/14/23 04/14/24 History allopurinol 100 mg tablet 100 mg PO QAM 04/11/24 04/14/24 History cholecalciferol (vitamin D3) 1,250 1,250 mcg PO WK 04/11/24 04/14/24 History mcg (50,000 unit) capsule famotidine 40 mg tablet 40 mg PO QAM 04/11/24 04/14/24 History ondansetron HCl 4 mg tablet 4 mg PO Q6 PRN Nausea 04/11/24 04/14/24 History vancomycin 125 mg capsule 125 mg PO QID #32 caps 04/20/24 Rx Hospital Stay Data Consultations 04/14/24 11:22 ED Decision to Admit Stat Diagnostic Imagining Performed 04/14/24 11:46 CT chest diagnostic wo con Stat 04/14/24 12:28 CT angio chest PE protocol Stat 04/14/24 13:03 US venous doppler LE BI Stat Chest X-Ray 04/14/24 09:29 XR chest 1V portable CLINICAL HISTORY: Chest pain, nonspecific COMPARISON STUDY: Chest radiograph and chest CT April 11, 2024. FINDINGS: Elevation of the right hemidiaphragm is unchanged. There is a hiatal hernia. Cardiomegaly is noted. There is no pneumothorax or pleural effusion. Linear bilateral densities favor atelectasis. There is no evidence for overt pulmonary edema. IMPRESSION: 1. Cardiomegaly without radiographic evidence for pulmonary edema. 2. Linear bilateral densities suggestive of atelectasis. ACT 112: Negative or not required by law. Electronically signed by: Jack Horowitz M.D. 04/14/2024 10:[address] 04/14/24 11:46 CT chest diagnostic wo con CT DOSE: 465.33 mGy.cm CLINICAL HISTORY: 84 years-old Female with covid 19 infection with hypoxia. Acute shortness of breath with hypoxia TECHNIQUE: Multiaxial CT images of the chest were performed without contrast. A dose lowering technique was utilized adhering to the principles of ALARA. COMPARISON: CTA chest 04/11/2024 FINDINGS: Subcentimeter thyroid nodules are again noted. There are a few borderline-enlarged mediastinal lymph nodes which are likely reactive. The heart is mildly enlarged. Extensive coronary artery calcifications. No pericardial effusion or thoracic aortic aneurysm. Trace pleural effusions. No pneumothorax. Pulmonary emphysema. Mild intralobular septal thickening with dependent linear areas of subsegmental consolidation. Findings are similar to prior. No suspicious pulmonary nodules or masses identified. Small fat filled left Bochdalek hernia. Distal esophageal wall thickening with small hiatal hernia. Cholecystectomy. Unremarkable soft tissues. No acute fracture. IMPRESSION: 1. Cardiomegaly with mild interstitial pulmonary edema, trace pleural effusions with dependent bibasilar atelectasis 2. No lobar airspace consolidation typical for pneumonia. 3. Pulmonary emphysema. 4. Small hiatal hernia. ACT 112: Negative or not required by law. Electronically signed by: Mert Villalta M.D. 04/14/2024 12:58 PM Chest CTA 04/14/24 12:28 CT ANGIOGRAM OF THE CHEST CLINICAL HISTORY: Atypical chest pain COMPARISON STUDY: Chest CT scans dated 04/14/2024 and 04/11/2024. TECHNIQUE: Following the IV administration of 112 cc of Optiray 320, CT angiogram of the chest was performed from the upper abdomen to the thoracic inlet utilizing the pulmonary embolus protocol. Images are reviewed in the axial, sagittal, and coronal planes. 3-D MIPS images are created and assessed. IV contrast was administered without complication. A dose lowering technique was utilized adhering to the principles of ALARA. CT DOSE: 684.14 mGy.cm FINDINGS: Thyroid: Mildly enlarged and heterogeneous. Thoracic aorta: There is atherosclerotic calcification of the thoracic aorta, which is normal in caliber and demonstrates standard 3-vessel arch anatomy. No dissection is seen. Pulmonary vasculature: The pulmonary trunk is normal in caliber. There are no filling defects identified in main, lobar, or segmental pulmonary branches to suggest pulmonary embolus. Heart: The heart is enlarged and without pericardial effusion. The coronary a rteries are densely calcified. Lungs and pleural spaces: Evaluation of the lung parenchyma is significantly degraded by motion artifact. Dependent consolidation is again seen at both lung bases. There are trace pleural effusions. The trachea and central airways are clear. A fat-containing Bochdalek hernia is seen on the left. Mediastinum: There is no mediastinal lymphadenopathy. Dolores: Clear. Axillae: There is no axillary lymphadenopathy. Upper abdomen: Cholecystectomy clips are noted. There is mild central intrahepatic biliary ductal dilatation. A small to moderate hiatal hernia is a gain noted. Skeletal structures: The skeletal structures are osteopenic. No lytic or blastic bony lesions are seen. Degenerative change is seen in the shoulders and spine. IMPRESSION: 1. There is no evidence of pulmonary embolus in the main, lobar, or segmental pulmonary arteries. 2. Cardiomegaly and trace pleural effusions. 3. Dependent airspace consolidation at both lung bases likely represents segmental atelectasis. Correlate clinically. 4. Hiatal hernia. 5. Additional findings as above. ACT 112: Negative or not required by law. Electronically signed by: Maykel Wilson M.D. 04/14/2024 5:10 PM Venous Doppler Study 04/14/24 13:03 ULTRASOUND BILATERAL LOWER EXTREMITY VENOUS CLINICAL HISTORY: Atypical chest pain. Dyspnea. Clinical concern for deep venous thrombosis. COMPARISON STUDY: No priors TECHNIQUE: Real-time, grayscale, and color Doppler sonography of the deep veins of the right and left lower extremity was performed from the inguinal crease to the calf. Compression and augmentation were utilized. FINDINGS: There is no sonographic evidence of deep venous thrombosis identified in the right or left lower extremity. The common femoral, superficial femoral, and popliteal veins are patent and normally compressible bilaterally. The greater saphenous vein and the profunda femoris vein at the junction with the common femoral vein are clear in both legs. The visualized calf veins are patent bilaterally. IMPRESSION: There is no sonographic evidence of deep venous thrombosis identified in the right or left lower extremity. ACT 112: Negative or not required by law. Electronically signed by: Maykel Wilson M.D. 04/14/2024 5:07 PM Pending Results Patient Have Any Pending Studies at Discharge: No Discharge Instructions Given to Patient (Per Discharging Provider) Paola, You were admitted and treated with shortness of breath related to your COVID infection. Your symptoms improved and you are now stable for discharge. We also treated you for diarrhea that we believed was related to a bacteria called C. difficile. Please continue taking the prescribed oral vancomycin for an additional 8 days, 4 times daily. Please keep close follow up with your primary care provider after discharge. Please do not hesitate to come back to the emergency room if your symptoms worsen or return. It was a pleasure taking care of you while you were here. Total Time Total Time Spent Total Time Spent (In Minutes): 65
[2024-04-20 11:00] VITALS: BP 106/81; RESP 19
[2024-04-20 11:12] VITALS: PULSE 79
[2024-04-20] MEDS: POT PHOSPHATE MONOBASIC W/ SOD TAB PO ONE (11:37)
[2024-04-20 13:39] VITALS: O2SAT 97
== END 2024-04-20 13:56 | disposition home health service (06) | DRG 177 ==
LOC: ED 09:12 → SUATTDRO 11:27 → 2E 11:27

== ENCOUNTER 2024-09-02 18:04 | Inpatient (IN) ==
[2024-09-02] MEDS: SODIUM CHLORIDE 0.9% 1,000 ML IV SCH (18:22)
--- NOTE | 2024-09-02 18:27 | Emergency Department Note ---
Impression & Plan Hypotension, Diverticulitis, Tachycardia, Dizziness, Anemia, Leukocytosis, Heme positive stool, TRICIA (acute kidney injury), Elevated lactic acid level ED Provider Note NAME: KYLE SHERIFF AGE: 84 SEX: F : 1940 ARRIVES VIA: Walk-In INFORMANT: [Patient] ED PROVIDER(S): [Maykel Blue MD] CHIEF COMPLAINT: Hypotension, weak HISTORY OF PRESENT ILLNESS: The patient is an 84-year-old female who started feeling poorly yesterday. She states that yesterday, she finished her medications/antibiotics for diverticulitis. She no longer has any abdominal pain and she thought the diverticulitis was improving but when she began to feel poorly again yesterday, she reconsidered. She has had no appetite, she has had a lot of nausea and some dry heaves. She feels weak and dizzy and short of breath especially with exertion. No fever. No urinary complaints. PMHx/PSHx/Social Hx: See Below PHYSICAL EXAM: GENERAL: Patient is in no acute distress. HEENT: No acute trauma, normocephalic atraumatic, mucous membranes dry, no nasal congestion. NECK: No stridor, no adenopathy, no meningismus, trachea is midline. LUNGS: Clear to auscultation bilaterally, no wheeze, no rhonchi, breath sounds equal. HEART: Without murmurs gallops or rubs, regular rate and rhythm. ABDOMEN: Soft, nontender, no peritonitis. EXTREMITIES: No cyanosis, full range of motion of all the joints without pain or difficulty. NEUROLOGIC: Oriented x 3, no acute motor or sensory deficits, no focal weakness. SKIN: No jaundice, no diaphoresis. Rectal: Brown stool, trace heme positive. 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 DIFFERENTIAL DIAGNOSIS: Dehydration, sepsis or bacteremia, UTI, anemia, electrolyte imbalance, among others. EMERGENCY DEPARTMENT PROCEDURES: MEDICAL DECISION MAKING: There is a mild leukocytosis, this could be consistent with infection. The patient is anemic with a hemoglobin of 8.3. This is about a 2 point drop for her based on her recent testing. I did perform a rectal exam, stool was brown and trace heme positive. The platelet count was elevated at 548. Renal panel testing did show evidence for some acute kidney injury/dehydration with a creatinine of 1.6. Lactic acid level was elevated at 3.5 consistent with dehydration and/or potentially infection/sepsis. No worrisome liver enzyme elevation. Procalcitonin level was not elevated making serious bacterial infection less likely. ECG showed a sinus rhythm, there was no acute ST elevation. Cardiac enzyme testing x 1 was not consistent with acute cardiac injury. Chest x-ray did not show pneumonia or CHF. On exam, the patient appeared dehydrated, she was borderline hypotensive. She was mildly tachycardic. She was not in pain. She was not febrile. The patient received IV saline, 2 L. This should meet for sepsis protocol based on 30 cc/kg and ideal body weight. She was given IV Pepcid, IV Zofran, IV Phenergan. She was given IV cefepime as empiric antibiotic coverage. An abdominal and pelvis CT was performed, the patient does have noncomplicated diverticulitis, no abscess. Patient has done well here in the ED. Her blood pressure is improved with the fluids. Her heart rate has decreased. She does seem more comfortable. The patient's hemoglobin will need to be followed. She does have trace heme positive stool by my testing and certainly, may have had some diverticular bleeding over the last few weeks. She has failed outpatient therapy for diverticulitis. She presents hypotensive likely a result of her infection, her dehydration and anemia. Hospitalization is indicated. I did speak with the patient and case management, the on-call hospitalist was consulted. Prior/Outside records/notes reviewed: None ECG per my interpretation: Indication was weakness. The ECG shows a normal sinus rhythm with a rate of 100. There is some diffuse nonspecific ST change. There is no acute ST elevation, no PVCs. The QTc is 456. Continuous Cardiac Monitoring per my interpretation: An order was placed for continuous cardiac monitoring. The monitor shows a rate of 103 with sinus tachycardia. Imaging/x-ray results per my interpretation: Chest x-ray does not show pneumonia or CHF. Chronic Medical/Social conditions affecting care: Advanced age. Recent bout of diverticulitis. Care/Management discussed with: Case management, the on-call hospitalist. Level of care consideration(s): After review of the information above and other included data: --I believe the patient requires escalation of care to admission Critical Care Note: I have personally spent 45 minutes of critical care time in the direct management of this patient. This includes bedside care, interpretation of diagnostic studies, and testing, discussion with consultants, patient, and family members, and other required patient management activities. This 45 minutes is in excess of all separately billable procedures. DISPOSITION: Admission Past Med/Surg History Problem List (Updated 09/03/24 @ 00:03 by Maykel Blue MD) Elevated lactic acid level (Acute) TRICIA (acute kidney injury) (Acute) Heme positive stool (Acute) Leukocytosis (Acute) Anemia (Acute) Dizziness (Acute) Tachycardia (Acute) Diverticulitis (Acute) Hypotension (Acute) Weakness (Acute) Shortness of breath (Acute) Hypoxia (Acute) Pneumonia due to COVID-19 virus Acute respiratory failure with hypoxia Chest pain Lumbar spinal stenosis Osteoarthritis of right hip Sacroiliitis Lumbar radiculopathy Acute pain of right hip (Acute) Deep right inguinal pain (Acute) Diverticulitis (Acute) CAD (coronary artery disease) Sigmoid diverticulitis Pilonidal cyst (Chronic) GI bleed (Chronic) Depression (Chronic) LIGIA (iron deficiency anemia) (Chronic) Medical History 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" CAD (coronary artery disease) "06/2011 - inferior STEMI s/p aspiration thrombectomy to LCX with 2 KAYY and KAYY to RCA" On 01/24/14 13:30 Oneida Arroyo wrote "NM 06/2011, 2 KAYY to the circumflex, 1 KAYY to the RCA echo 11/2013 showed EF 60-65%, mild mitral regurgitation " Surgical History S/P repair of paraesophageal hernia S/P cholecystectomy History of oophorectomy, unilateral S/P anal fissurectomy Hx of tubal ligation H/O dilation and curettage Family History Father Heart disease Arthritis Mother Arthritis Social History Smoking Status: Former smoker Tobacco Type: Cigarettes Second Hand Exposure: No; Do You Dip or Chew Tobacco: No; Hx Alcohol Use: Yes Alcohol type: beer Hx Substance Use: No Preferred Language: Divehi Communication Ability: Effective Claim Investigator Required: No Beliefs That Will Affect Care: None marital status: / Current Living Situation: Alone Feels Safe at Home: Yes Assistive Devices: Glasses Allergies Allergies Allergy/AdvReac Type Severity Reaction Status Date / Time hydrocodone Allergy Unknown Confusion Verified 09/02/24 22:36 Macrolide Antibiotics Allergy Unknown ALLERGIC Verified 09/02/24 22:36 TO "MYCINS" Penicillins Allergy Unknown HIVES Verified 09/02/24 22:36 Sulfa (Sulfonamide Allergy Unknown HIVES Verified 09/02/24 22:36 Antibiotics) lisinopril AdvReac Unknown cough Verified 09/02/24 22:36 Home Meds Home Medications Medication Instructions Recorded Confirmed aspirin 81 mg tablet,delayed 81 mg PO DAILY 11/08/20 09/02/24 release (Prabha Low Dose Aspirin) nitroglycerin 0.4 mg sublingual 0.4 mg sublingual UD PRN Chest Pain 11/08/20 09/02/24 tablet lorazepam 0.5 mg tablet 0.5 mg PO BID PRN Anxiety 05/14/23 09/02/24 allopurinol 100 mg tablet 100 mg PO QAM 04/11/24 09/02/24 cholecalciferol (vitamin D3) 1,250 1,250 mcg PO WK 04/11/24 09/02/24 mcg (50,000 unit) capsule famotidine 40 mg tablet 40 mg PO QAM 04/11/24 09/02/24 ondansetron HCl 4 mg tablet 4 mg PO Q6 PRN Nausea 04/11/24 09/02/24 Previous Rx's Medication Instructions Recorded vancomycin 125 mg capsule 125 mg PO QID #32 caps 04/20/24 Results & Data (ED) Vital Signs Vital Signs - 24 hr 09/02/24 18:06 09/02/24 18:20 09/02/24 19:15 Temperature 36 C L Temperature Source Temporal Artery Scan Pulse Rate 58 L 103 H Pulse Rate [Apical] Respiratory Rate 18 Respiratory Effort / Characteristics Non-Labored Respiratory Depth Normal Respiratory Pattern Regular Blood Pressure 91/62 L Blood Pressure [Right Arm] Blood Pressure Mean 71 Blood Pressure Mean [Right Arm] Pulse Oximetry 96 Oxygen Delivery Method Room Air Room Air Sepsis Recent Fever Within 48 Hours No Sepsis New/Unexplained Change in Mental Status N/A Sepsis Action Taken by Nursing No Action Required 09/02/24 19:15 09/02/24 19:15 09/02/24 19:15 Temperature Temperature Source Pulse Rate 93 H Pulse Rate [Apical] 97 H Respiratory Rate 20 16 Respiratory Effort / Characteristics Respiratory Depth Respiratory Pattern Blood Pressure 114/68 Blood Pressure [Right Arm] 114/68 Blood Pressure Mean 83 Blood Pressure Mean [Right Arm] 83 Pulse Oximetry 96 95 Oxygen Delivery Method Room Air Room Air Sepsis Recent Fever Within 48 Hours Sepsis New/Unexplained Change in Mental Status Sepsis Action Taken by Nursing 09/02/24 20:00 09/02/24 21:00 Temperature Temperature Source Pulse Rate 87 89 Pulse Rate [Apical] Respiratory Rate 16 18 Respiratory Effort / Characteristics Respiratory Depth Respiratory Pattern Blood Pressure 109/58 L 127/66 Blood Pressure [Right Arm] Blood Pressure Mean 75 91 Blood Pressure Mean [Right Arm] Pulse Oximetry 92 93 Oxygen Delivery Method Sepsis Recent Fever Within 48 Hours Sepsis New/Unexplained Change in Mental Status Sepsis Action Taken by [facility] Medications Current Medication List: was personally reviewed by me Laboratory Data Attestation: I reviewed the patient's lab results. 09/02/24 22:39 09/02/24 18:20 Lab Results 09/02/24 09/02/24 09/02/24 Range/Units 18:20 18:31 20:11 WBC 12.85 H (4.8-10.8) K/ul RBC 3.35 L (4.20-5.40) M/uL Hgb 8.3 L (12.0-16.0) g/dl Hct 26.7 L (37.0-47.0) % MCV 79.7 L (80.0-100.0) fL MCH 24.8 L (25.0-34.0) pg MCHC 31.1 L (32.0-36.0) g/dL RDW Std Deviation 49.3 H (36.4-46.3) fL RDW Coeff of Jamar 17.2 H (11.5-14.5) % Plt Count 548 H (130-400) K/uL MPV 9.9 (9.4-12.4) fL Immature Gran % (Auto) 0.4 % Neut % (Auto) 67.8 % Lymph % (Auto) 26.1 % [place] % (Auto) 4.5 % Eos % (Auto) 0.6 % Baso % (Auto) 0.6 % Neut # (Auto) 8.71 H (1.40-6.50) K/uL Lymph # (Auto) 3.35 (1.20-3.40) K/uL [place] # (Auto) 0.58 (0.11-0.59) K/uL Eos # (Auto) 0.08 (0.00-0.50) K/uL Baso # (Auto) 0.08 (0.00-0.20) K/uL Immature Gran # (Auto) 0.05 (0.01-0.20) K/uL Sodium 140 (136-145) mmol/L Potassium 4.4 (3.5-5.1) mmol/L Chloride 104 (98-107) mmol/L Carbon Dioxide 23 (21-32) mmol/L Anion Gap 13 H (3-11) BUN 59 H (6-23) mg/dl Creatinine 1.60 H (0.6-1.2) mg/dl Est Cr Clr Drug Dosing Not Reportable eGFR 31.80 BUN/Creatinine Ratio 36.9 H (10-20) Glucose 127 H (70-99(Fasting)) mg/dl Lactate 3.5 H* 1.8 (0.4-2.0) mmol/L Calcium 9.6 (8.6-10.3) mg/dl Magnesium 1.7 (1.7-2.4) mg/dl Total Bilirubin 0.3 (0.2-1.0) mg/dl Direct Bilirubin 0.0 (0-0.2) mg/dl AST 29 (13-39) U/L ALT 15 (7-52) U/L Alkaline Phosphatase 51 (34-104) U/L Troponin I High Sens 5.1 (0-14) pg/ml Total Protein 7.7 (6.0-8.3) gm/dl Albumin 3.7 (3.4-5.0) gm/dl Procalcitonin 0.10 (0-0.5) ng/ml Administered Medications Lactated Ringer's (Lr) 1,000 mls @ 100 mls/hr IV .Q10H ONE Stop: 09/03/24 07:19 Last Admin: 09/02/24 22:50 Dose: 100 mls/hr Documented By: NAW Discontinued Medications Sodium Chloride (Nss) 1,000 mls @ 999 mls/hr IV .Q1H1M STAR Stop: 09/02/24 19:15 Last Infusion: 09/02/24 19:35 Dose: Infused Documented By: Admin: 09/02/24 18:22 Dose: 999 mls/hr Documented By: ANGELINA Famotidine (Pepcid 20mg Iv Push) 20 mg in 5 mls @ 2.5 mls/min IV NOW STA Stop: 09/02/24 18:24 Last Admin: 09/02/24 18:29 Dose: 2.5 mls/min Documented By: LUISA Promethazine HCl (Phenergan) 6.25 mg in 50.25 mls @ 201 mls/hr IV NOW STA Stop: 09/02/24 18:37 Last Infusion: 09/02/24 19:19 Dose: Infused Documented By: Admin: 09/02/24 18:29 Dose: 201 mls/hr Documented By: LUISA Cefepime HCl (Maxipime 2000mg) 2,000 mg in 20 mls @ 5 mls/min IV NOW STA; Protocol Stop: 09/02/24 18:55 Last Admin: 09/02/24 19:18 Dose: 5 mls/min Documented By: DARREN Sodium Chloride (Nss) 1,000 mls @ 999 mls/hr IV .Q1H1M ONE Stop: 09/02/24 20:30 Last Infusion: 09/02/24 20:54 Dose: Infused Documented By: Admin: 09/02/24 19:44 Dose: 999 mls/hr Documented By: DARREN Pantoprazole Sodium (Protonix) 40 mg in 10 mls @ 5 mls/min IV NOW ONE Stop: 09/02/24 22:15 Last Admin: 09/02/24 22:50 Dose: 5 mls/min Documented By: CONCHITA Ondansetron HCl (Ondansetron Inj 2 Mg/Ml 2 Ml Vial) 4 mg IV NOW STA Stop: 09/02/24 18:24 Last Admin: 09/02/24 18:29 Dose: 4 mg Documented By: LUISA Imaging Data Radiologist's Impression: Chest X-Ray 09/02/24 18:15 EXAM: Radiograph of the Chest 1 View INDICATION: Sepsis TECHNIQUE: Frontal view of the chest. COMPARISON: 04/11/2024 FINDINGS: Lungs and pleural spaces: No consolidation or pulmonary edema. No pleural effusion or pneumothorax. Heart: Shape and configuration within normal limits allowing for technique. Mediastinum: Suspect small hiatal hernia. Bones/joints: Fall right proximal humeral fracture. Degenerative changes in the spine and left shoulder. No acute osseous abnormality. Soft tissues: No abnormality noted. No radiopaque foreign body noted. Vasculature: Stable ectatic aorta. Upper abdomen: No abnormality noted. IMPRESSION: No acute cardiopulmonary disease. ACT 112: Negative or not required by law. Electronically signed by Jane Moran 09-02-2024 6:52 PM Abdomen/Pelvis CT 09/02/24 19:23 Exam(s): CT ABDOMEN + PELVIS Without Contrast EXAM: CT Abdomen and Pelvis Without Intravenous Contrast CLINICAL HISTORY: Reason for exam: poss divertic. TECHNIQUE: Axial computed tomography images of the abdomen and pelvis without intravenous contrast. CTDI is 12.46 mGy and DLP is 602.84 mGy-cm. Automated exposure control was utilized for the study. A dose lowering technique was utilized adhering to the principles of ALARA. COMPARISON: No relevant prior studies available. FINDINGS: Lung bases: Unremarkable. Heart: Coronary artery atherosclerosis. Mediastinum: Small hiatal hernia. ABDOMEN: Liver: Unremarkable. Gallbladder and bile ducts: Cholecystectomy. No ductal dilation. Pancreas: Unremarkable. No ductal dilation. Spleen: Unremarkable. No splenomegaly. Adrenals: Unremarkable. No mass. Kidneys and ureters: Unremarkable. No obstructing stones. No hydronephrosis. Stomach and bowel: Partial right colectomy. No bowel obstruction. Colonic diverticulosis. Uncomplicated acute diverticulitis of the proximal to mid sigmoid colon. PELVIS: Appendix: Surgically absent appendix. Bladder: Unremarkable. No stones. Reproductive: Subcentimeter calcified uterine fibroid. ABDOMEN and PELVIS: Intraperitoneal space: Unremarkable. No free air or abscess. No significant free fluid. Bones/joints: Lumbar spondylosis. Facet degeneration in the lower lumbar spine with grade 1 anterolisthesis of L5. Mild joint space narrowing in both hips. No acute fracture or dislocation. Soft tissues: Unremarkable. Vasculature: Aortoiliac atherosclerosis. Lymph nodes: Unremarkable. No enlarged lymph nodes. IMPRESSION: 1. Uncomplicated acute diverticulitis of the proximal to mid sigmoid colon. 2. No free air or abscess. Electronically signed by: Geovany Govea M.D. 09/02/24 20:30 PM Discharge Plan Visit Data Chief Complaint: Hypotension Stated Complaint: DIZZY, LOW BP, DIVERTICULITIS ISSUES ED Provider: Maykel Blue Discharge Problem: Hypotension, Diverticulitis, Tachycardia, Dizziness, Anemia, Leukocytosis, Heme positive stool, TRICIA (acute kidney injury), Elevated lactic acid level Patient Disposition: Admitted As Inpatient Condition: Fair Discharge Instructions Interventions: ED Discharge Assessment Last Done: 09/02/24 23:20 Discharge Problem: Hypotension Qualifiers: Hypotension type: unspecified hypotension type Qualified Code(s): I95.9 - Hypotension, unspecified Anemia Qualifiers: Anemia type: unspecified type Qualified Code(s): D64.9 - Anemia, unspecified Leukocytosis Qualifiers: Leukocytosis type: unspecified Qualified Code(s): D72.829 - Elevated white blood cell count, unspecified
[2024-09-02] MEDS: FAMOTIDINE 20MG IV PUSH 20 MG/5 ML SYR IV STA (18:29)
[2024-09-02] MEDS: ONDANSETRON INJ 2 MG/ML 2 ML VIAL IV STA (18:29)
[2024-09-02] MEDS: PROMETHAZINE 6.25 MG/50.25 ML BAG IV STA (18:29)
[2024-09-02 18:35] LABS: Basophils # (auto) 0.08 K/uL (0.00-0.20); Basophils % (auto) 0.6 %; Eosinophils # (auto) 0.08 K/uL (0.00-0.50); Eosinophils % (auto) 0.6 %; Hematocrit (blood only) 26.7 % (37.0-47.0); Hemoglobin 8.3 g/dl (12.0-16.0); Immature Granulocytes # (auto) 0.05 K/uL (0.01-0.20); Immature Granulocytes % (auto) 0.4 %; Lymphocytes # (auto) 3.35 K/uL (1.20-3.40); Lymphocytes % (auto) 26.1 %; Mean Corpuscular Hemoglobin 24.8 pg (25.0-34.0); Mean Corpuscular Hgb Conc 31.1 g/dL (32.0-36.0); Mean Corpuscular Volume 79.7 fL (80.0-100.0); Mean Platelet Volume 9.9 fL (9.4-12.4); Monocytes # (auto) 0.58 K/uL (0.11-0.59); Monocytes % (auto) 4.5 %; Neutrophils # (auto) 8.71 K/uL (1.40-6.50); Neutrophils % (auto) 67.8 %; Platelet Count 548 K/uL (130-400); RDW Coefficient of Variation 17.2 % (11.5-14.5); RDW Standard Deviation 49.3 fL (36.4-46.3); Red Blood Count 3.35 M/uL (4.20-5.40); White Blood Count 12.85 K/ul (4.8-10.8)
--- NOTE | 2024-09-02 18:52 | XRay Report ---
EXAM: Radiograph of the Chest 1 View INDICATION: Sepsis TECHNIQUE: Frontal view of the chest. COMPARISON: 04/11/2024 FINDINGS: Lungs and pleural spaces: No consolidation or pulmonary edema. No pleural effusion or pneumothorax. Heart: Shape and configuration within normal limits allowing for technique. Mediastinum: Suspect small hiatal hernia. Bones/joints: Fall right proximal humeral fracture. Degenerative changes in the spine and left shoulder. No acute osseous abnormality. Soft tissues: No abnormality noted. No radiopaque foreign body noted. Vasculature: Stable ectatic aorta. Upper abdomen: No abnormality noted. IMPRESSION: No acute cardiopulmonary disease. ACT 112: Negative or not required by law. Electronically signed by Jane Moran 09-02-2024 6:52 PM
[2024-09-02 18:53] LABS: Alanine Aminotransferase 15 U/L (7-52); Albumin Level 3.7 gm/dl (3.4-5.0); Alkaline Phosphatase 51 U/L (34-104); Anion Gap 13 (3-11); Aspartate Aminotransferase 29 U/L (13-39); BUN Creatinine Ratio 36.9 (10-20); Bilirubin,Total 0.3 mg/dl (0.2-1.0); Blood Urea Nitrogen 59 mg/dl (6-23); Calcium 9.6 mg/dl (8.6-10.3); Carbon Dioxide 23 mmol/L (21-32); Chloride 104 mmol/L (98-107); Glucose 127 mg/dl (70-99(Fasting)); Magnesium 1.7 mg/dl (1.7-2.4); Potassium 4.4 mmol/L (3.5-5.1); Sodium 140 mmol/L (136-145); Total Protein 7.7 gm/dl (6.0-8.3)
[2024-09-02 18:59] LABS: Troponin I High Sensitivity 5.1 pg/ml (0-14)
[2024-09-02] MEDS: CEFEPIME 2000MG 2,000 MG/20 ML SYR IV STA (19:18)
[2024-09-02] MEDS: SODIUM CHLORIDE 0.9% 1,000 ML IV ONE (19:44)
--- NOTE | 2024-09-02 20:31 | CT Scan Report ---
Exam(s): CT ABDOMEN + PELVIS Without Contrast EXAM: CT Abdomen and Pelvis Without Intravenous Contrast CLINICAL HISTORY: Reason for exam: poss divertic. TECHNIQUE: Axial computed tomography images of the abdomen and pelvis without intravenous contrast. CTDI is 12.46 mGy and DLP is 602.84 mGy-cm. Automated exposure control was utilized for the study. A dose lowering technique was utilized adhering to the principles of ALARA. COMPARISON: No relevant prior studies available. FINDINGS: Lung bases: Unremarkable. Heart: Coronary artery atherosclerosis. Mediastinum: Small hiatal hernia. ABDOMEN: Liver: Unremarkable. Gallbladder and bile ducts: Cholecystectomy. No ductal dilation. Pancreas: Unremarkable. No ductal dilation. Spleen: Unremarkable. No splenomegaly. Adrenals: Unremarkable. No mass. Kidneys and ureters: Unremarkable. No obstructing stones. No hydronephrosis. Stomach and bowel: Partial right colectomy. No bowel obstruction. Colonic diverticulosis. Uncomplicated acute diverticulitis of the proximal to mid sigmoid colon. PELVIS: Appendix: Surgically absent appendix. Bladder: Unremarkable. No stones. Reproductive: Subcentimeter calcified uterine fibroid. ABDOMEN and PELVIS: Intraperitoneal space: Unremarkable. No free air or abscess. No significant free fluid. Bones/joints: Lumbar spondylosis. Facet degeneration in the lower lumbar spine with grade 1 anterolisthesis of L5. Mild joint space narrowing in both hips. No acute fracture or dislocation. Soft tissues: Unremarkable. Vasculature: Aortoiliac atherosclerosis. Lymph nodes: Unremarkable. No enlarged lymph nodes. IMPRESSION: 1. Uncomplicated acute diverticulitis of the proximal to mid sigmoid colon. 2. No free air or abscess. Electronically signed by: Geovany Govea M.D. 09/02/24 20:30 PM
--- NOTE | 2024-09-02 21:37 | History & Physical Report ---
Date of Service September 02, 2024 Assessment & Plan (1) Severe sepsis: Plan: Severe sepsis SIRS plus lactic acidosis plus ARF Recurrent diverticulitis status post antibiotic Rx Anemia secondary to intermittent GI bleed, normal baseline hemoglobin of 12 from outpatient blood work July 2024 Possible UGIB given account of one-time episode of melanotic stool passage at home, history of GERD status post surgery FOBT done by ED provider was positive. CAD status post stent hyperlipidemia, not on statin Rx prediabetes, hemoglobin A1c of 5.3 from 2022 colon cancer status post surgery urge incontinence, recently started on Myrbetriq past tobacco abuse Admit to med/tele CS, Ertapenem Monitor creatinine and lactic acid response to IVF Hold aspirin for now Follow H&H, transfuse RBC to maintain hemoglobin of at least 8 given history CAD IV PPI for possible UGIB GI consult re: GI bleed, recurrent diverticulitis N.p.o. in anticipation of procedure. DVT prophylaxis. SCDs Re: GI bleed Full code Patient requests for daughter to be given updates regarding care. Ms. Stacy Nayak, contact #[phone]. Text document was generated using [employer] voice recognition software. It may contain grammatical or spelling errors. Kindly contact undersigned for clarification of any documentation item in question. History of Present Illness Chief Complaint: Not feeling well, dizziness Primary Care Provider: Bruce Sheridan, History obtained from patient, family, and records. Medical history significant for CAD status post stent (2010), hypertension, hyperlipidemia, prediabetes, GERD status post surgery, colon cancer status post surgery, recurrent diverticulitis, sacroiliitis, urge incontinence, anxiety/mood disorder, past tobacco abuse. Last confinement April 2024 for respiratory failure secondary to COVID-19 pneumonia and iron deficiency anemia. 2 weeks ago, patient noted achy lower abdominal pain and nausea symptoms reminiscent of diverticulitis attack. Melanotic stool passage 1 episode. No fever, no chills. Symptoms improved after outpatient Cipro Flagyl course prescribed by PCP. Patient started feeling sick again yesterday. No actual belly pain. Nausea and dry heaving. Patient felt weak, dizzy and lightheaded. No headache. Denies chest pain or SOB. Denies OTC NSAID intake. No noah black or bloody stool passage at home. Patient directed to ER for evaluation. SBP 90s upon arrival at the ER. IV cefepime administered at the ER. 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 Allergies Allergy/AdvReac Type Severity Reaction Status Date / Time hydrocodone Allergy Unknown Confusion Verified 09/02/24 22:36 Macrolide Antibiotics Allergy Unknown ALLERGIC Verified 09/02/24 22:36 TO "MYCINS" Penicillins Allergy Unknown HIVES Verified 09/02/24 22:36 Sulfa (Sulfonamide Allergy Unknown HIVES Verified 09/02/24 22:36 Antibiotics) lisinopril AdvReac Unknown cough Verified 09/02/24 22:36 Home Medications Medication Instructions Recorded Confirmed Type aspirin 81 mg tablet,delayed 81 mg PO DAILY 11/08/20 09/02/24 History release (Prabha Low Dose Aspirin) nitroglycerin 0.4 mg sublingual 0.4 mg sublingual UD PRN Chest Pain 11/08/20 09/02/24 History tablet lorazepam 0.5 mg tablet 0.5 mg PO BID PRN Anxiety 05/14/23 09/02/24 History allopurinol 100 mg tablet 100 mg PO QAM 04/11/24 09/02/24 History cholecalciferol (vitamin D3) 1,250 1,250 mcg PO WK 04/11/24 09/02/24 History mcg (50,000 unit) capsule famotidine 40 mg tablet 40 mg PO QAM 04/11/24 09/02/24 History Myrbetriq 50 mg PO DAILY 09/03/24 09/03/24 History Past Med/Surg History Problem List (Updated 09/03/24 @ 04:36 by Alfredo Morales MD) Severe sepsis Elevated lactic acid level (Acute) TRICIA (acute kidney injury) (Acute) Heme positive stool (Acute) Leukocytosis (Acute) Anemia (Acute) Dizziness (Acute) Tachycardia (Acute) Diverticulitis (Acute) Hypotension (Acute) Weakness (Acute) Shortness of breath (Acute) Hypoxia (Acute) Pneumonia due to COVID-19 virus Acute respiratory failure with hypoxia Chest pain Lumbar spinal stenosis Osteoarthritis of right hip Sacroiliitis Lumbar radiculopathy Acute pain of right hip (Acute) Deep right inguinal pain (Acute) Diverticulitis (Acute) CAD (coronary artery disease) Sigmoid diverticulitis Pilonidal cyst (Chronic) GI bleed (Chronic) Depression (Chronic) LIGIA (iron deficiency anemia) (Chronic) Medical History 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" CAD (coronary artery disease) "06/2011 - inferior STEMI s/p aspiration thrombectomy to LCX with 2 KAYY and D ES to RCA" On 01/24/14 13:30 Oneida Arroyo wrote "[place] 06/2011, 2 KAYY to the circumflex, 1 KAYY to the RCA echo 11/2013 showed EF 60-65%, mild mitral regurgitation " Surgical History S/P repair of paraesophageal hernia S/P cholecystectomy History of oophorectomy, unilateral S/P anal fissurectomy Hx of tubal ligation H/O dilation and curettage Family History Father Heart disease Arthritis Mother Arthritis Social History Smoking Status: Never smoker Tobacco Type: Cigarettes Second Hand Exposure: No; Do You Dip or Chew Tobacco: No; Hx Alcohol Use: No Hx Substance Use: No Preferred Language: Icelandic Communication Ability: Effective Electrocardiographic Technician Required: No Beliefs That Will Affect Care: None marital status: / Current Living Situation: Alone Feels Safe at Home: Yes Safety Concerns: Feels Safe At This Time Assistive Devices: Glasses Review of Systems Review of Systems: As per HPI, all other systems reviewed and negative Physical Exam Physical Exam: GENERAL: pleasant, no respiratory distress SKIN: Pallor, warm HEENT: Pale palpebral conjunctivae, no ptosis, moist buccal mucosa NECK : Supple, no tenderness CHEST : CTA, no tenderness HEART : RRR, no obvious murmurs ABDOMEN: Some distention, no overt tenderness EXTREMITIES : No LE swelling/tenderness, no other conspicuous deformities noted NEUROLOGIC : Coherent, no facial asymmetry, no other gross focality Results & Data Results & Data Vital Signs (Past 12 Hours) Vital Signs Temp Pulse Pulse Resp BP BP Pulse Ox 09/02/24 20:00 87 16 109/58 L 92 09/02/24 19:15 93 H 16 114/68 95 09/02/24 19:15 97 H 20 114/68 96 09/02/24 19:15 09/02/24 19:15 09/02/24 18:20 103 H 09/02/24 18:06 36 C L 58 L 18 91/62 L 96 O2 Del Method 09/02/24 20:00 09/02/24 19:15 09/02/24 19:15 Room Air 09/02/24 19:15 Room Air 09/02/24 19:15 Room Air 09/02/24 18:20 09/02/24 18:06 Room Air Laboratory Results Laboratory Results WBC 12.85 K/ul (4.8-10.8) H 09/02/24 18:20 RBC 3.35 M/uL (4.20-5.40) L 09/02/24 18:20 Hgb 8.3 g/dl (12.0-16.0) L 09/02/24 18:20 Hct 26.7 % (37.0-47.0) L 09/02/24 18:20 MCV 79.7 fL (80.0-100.0) L 09/02/24 18:20 MCH 24.8 pg (25.0-34.0) L 09/02/24 18:20 MCHC 31.1 g/dL (32.0-36.0) L 09/02/24 18:20 RDW Std Deviation 49.3 fL (36.4-46.3) H 09/02/24 18:20 RDW Coeff of Jamar 17.2 % (11.5-14.5) H 09/02/24 18:20 Plt Count 548 K/uL (130-400) H 09/02/24 18:20 MPV 9.9 fL (9.4-12.4) 09/02/24 18:20 Immature Gran % (Auto) 0.4 % 09/02/24 18:20 Neut % (Auto) 67.8 % 09/02/24 18:20 Lymph % (Auto) 26.1 % 09/02/24 18:20 Martin % (Auto) 4.5 % 09/02/24 18:20 Eos % (Auto) 0.6 % 09/02/24 18:20 Baso % (Auto) 0.6 % 09/02/24 18:20 Neut # (Auto) 8.71 K/uL (1.40-6.50) H 09/02/24 18:20 Lymph # (Auto) 3.35 K/uL (1.20-3.40) 09/02/24 18:20 Martin # (Auto) 0.58 K/uL (0.11-0.59) 09/02/24 18:20 Eos # (Auto) 0.08 K/uL (0.00-0.50) 09/02/24 18:20 Baso # (Auto) 0.08 K/uL (0.00-0.20) 09/02/24 18:20 Immature Gran # (Auto) 0.05 K/uL (0.01-0.20) 09/02/24 18:20 Sodium 140 mmol/L (136-145) 09/02/24 18:20 Potassium 4.4 mmol/L (3.5-5.1) 09/02/24 18:20 Chloride 104 mmol/L (98-107) 09/02/24 18:20 Carbon Dioxide 23 mmol/L (21-32) 09/02/24 18:20 Anion Gap 13 (3-11) H 09/02/24 18:20 BUN 59 mg/dl (6-23) H 09/02/24 18:20 Creatinine 1.60 mg/dl (0.6-1.2) H 09/02/24 18:20 Est Cr Clr Drug Dosing Not Reportable 09/02/24 18:20 eGFR 31.80 09/02/24 18:20 BUN/Creatinine Ratio 36.9 (10-20) H 09/02/24 18:20 Glucose 127 mg/dl (70-99(Fasting)) H 09/02/24 18:20 Lactate 1.8 mmol/L (0.4-2.0) 09/02/24 20:11 Calcium 9.6 mg/dl (8.6-10.3) 09/02/24 18:20 Magnesium 1.7 mg/dl (1.7-2.4) 09/02/24 18:20 Total Bilirubin 0.3 mg/dl (0.2-1.0) 09/02/24 18:20 Direct Bilirubin 0.0 mg/dl (0-0.2) 09/02/24 18:20 AST 29 U/L (13-39) 09/02/24 18:20 ALT 15 U/L (7-52) 09/02/24 18:20 Alkaline Phosphatase 51 U/L (34-104) 09/02/24 18:20 Troponin I High Sens 5.1 pg/ml (0-14) 09/02/24 18:20 Total Protein 7.7 gm/dl (6.0-8.3) 09/02/24 18:20 Albumin 3.7 gm/dl (3.4-5.0) 09/02/24 18:20 Procalcitonin 0.10 ng/ml (0-0.5) 09/02/24 18:20 Impressions Chest X-Ray 09/02/24 18:15 EXAM: Radiograph of the Chest 1 View INDICATION: Sepsis TECHNIQUE: Frontal view of the chest. COMPARISON: 04/11/2024 FINDINGS: Lungs and pleural spaces: No consolidation or pulmonary edema. No pleural effusion or pneumothorax. Heart: Shape and configuration within normal limits allowing for technique. Mediastinum: Suspect small hiatal hernia. Bones/joints: Fall right proximal humeral fracture. Degenerative changes in the spine and left shoulder. No acute osseous abnormality. Soft tissues: No abnormality noted. No radiopaque foreign body noted. Vasculature: Stable ectatic aorta. Upper abdomen: No abnormality noted. IMPRESSION: No acute cardiopulmonary disease. ACT 112: Negative or not required by law. Electronically signed by Jane Moran 09-02-2024 6:52 PM Abdomen/Pelvis CT 09/02/24 19:23 Exam(s): CT ABDOMEN + PELVIS Without Contrast EXAM: CT Abdomen and Pelvis Without Intravenous Contrast CLINICAL HISTORY: Reason for exam: poss divertic. TECHNIQUE: Axial computed tomography images of the abdomen and pelvis without intravenous contrast. CTDI is 12.46 mGy and DLP is 602.84 mGy-cm. Automated exposure control was utilized for the study. A dose lowering technique was utilized adhering to the principles of ALARA. COMPARISON: No relevant prior studies available. FINDINGS: Lung bases: Unremarkable. Heart: Coronary artery atherosclerosis. Mediastinum: Small hiatal hernia. ABDOMEN: Liver: Unremarkable. Gallbladder and bile ducts: Cholecystectomy. No ductal dilation. Pancreas: Unremarkable. No ductal dilation. Spleen: Unremarkable. No splenomegaly. Adrenals: Unremarkable. No mass. Kidneys and ureters: Unremarkable. No obstructing stones. No hydronephrosis. Stomach and bowel: Partial right colectomy. No bowel obstruction. Colonic diverticulosis. Uncomplicated acute diverticulitis of the proximal to mid sigmoid colon. PELVIS: Appendix: Surgically absent appendix. Bladder: Unremarkable. No stones. Reproductive: Subcentimeter calcified uterine fibroid. ABDOMEN and PELVIS: Intraperitoneal space: Unremarkable. No free air or abscess. No significant free fluid. Bones/joints: Lumbar spondylosis. Facet degeneration in the lower lumbar spine with grade 1 anterolisthesis of L5. Mild joint space narrowing in both hips. No acute fracture or dislocation. Soft tissues: Unremarkable. Vasculature: Aortoiliac atherosclerosis. Lymph nodes: Unremarkable. No enlarged lymph nodes. IMPRESSION: 1. Uncomplicated acute diverticulitis of the proximal to mid sigmoid colon. 2. No free air or abscess. Electronically signed by: Geovany Govea M.D. 09/02/24 20:30 PM Diagnostic Findings EKG as per my interpretation :Rate 100, NSR, normal axis, T wave abnormalities anteroseptal and inferior leads, low voltage
[2024-09-02] MEDS: LACTATED RINGER'S 1,000 ML IV ONE (22:50)
[2024-09-02] MEDS: PANTOprazole 40 MG/10 ML SYR IV ONE (22:50)
[2024-09-02 22:51] LABS: Appearance Urine Clear (Clear); Bilirubin Urine Negative (Negative); Blood Urine Negative (Negative); Color Urine Yellow; Glucose Urine UA Negative (Negative); Ketones Urine Negative (Negative); Leukocyte Esterase Urine Negative (Negative); Nitrite Urine Negative (Negative); Protein Urine Negative (Negative); Specific Gravity Urine 1.014 (1.000-1.030); Urobilinogen Urine Negative (Negative)
[2024-09-02 22:52] LABS: Base Excess VBG -2.4 mEq/L; HCO3 VBG 24 mmol/L; Oxygen Saturation VBG < 60.0 %; PCO2 VBG 45 mmHg (38-50); PO2 VBG 25 mmHg; pH VBG 7.33 (7.36-7.41)
[2024-09-02] MEDS ORDERED: SODIUM CHLORIDE 0.9% 100 ML IV PRN (23:05)
[2024-09-02] MEDS ORDERED: SODIUM CHLORIDE 0.9% 50 ML IV PRN (23:05)
[2024-09-02 23:06] LABS: Hematocrit (blood only) 19.9 % (37.0-47.0); Hemoglobin 6.3 g/dl (12.0-16.0)
[2024-09-03] MEDS: ERTAPENEM 1000MG 1,000 MG/10 ML SYR IV SCH (02:48)
--- OUTSIDE RECORDS SUMMARY | 2024-09-03 02:52 | External Medical Summary ---
Author Name Unknown Address Unknown Organization K09:[facility] [id number] Laboratory Report Ordering Provider Test Date Status JAROD CARRION 07/23/2024 15:47:43 Final Observation Date Value Abnormality Reference (Units ) Status WBC, Total 07/23/2024 15:47:43 9.24 4.00-10.8 0 (K/uL) Final RBC 07/23/2024 15:47:43 4.56 3.85-5.15 (M/uL) Final Hemoglobin 07/23/2024 15:47:43 12.1 12.0-15.3 (g/dL) Final HCT 07/23/2024 15:47:43 38.5 36.0-45.2 (%) Final MCV 07/23/2024 15:47:43 84.4 81.5-97.5 (fL) Final MCH 07/23/2024 15:47:43 26.5 27.0-34.0 (pg) Final MCHC 07/23/2024 15:47:43 31.4 32.0-36.0 (g/dL) Final RDW 07/23/2024 15:47:43 19.4 11.5-15.5 (%) Final Platelets 07/23/2024 15:47:43 681 Above high normal 14 0-400 (K/uL) Final MPV 07/23/2024 15:47:43 8.8 6.6-11.1 ( fL) Final Performing Location [facility] [id number]
--- OUTSIDE RECORDS SUMMARY | 2024-09-03 02:52 | External Medical Summary | Summary of Care ---
Author Name Unknown Organization [facility] Address [address] [place] [facility] [place] [place] [address] Phone [phone] Care Team Providers Care Belling Machine Operator Name Role Phone Bruce Sheridan DO Primary Care Provider [phone] Reason for Visit * Reason Onset Date Comments Advice 08/16/2024 Encounter Details Date Type Department Care Team (Late st Contact Info) Description 08/16[facility] [address] [facility] [place] [address] Bruce Sheridan DO [address] [facility] [place] [address] Advice Allergies Active Allergy Reactions Criticality Noted Date Comments Lisinopril Cough 11/06/2011 Procaine Edema face/lips/tongue,Itc maxim High 11/26/2016 Penicillins Hives High 08/06/1999 Hives down throat Sulfa Antibiotics Hives High 08/06/1999 Hives down throat Hydrocodone-Acetaminoph en Nausea/vomiting Low 08/23/2010 documented as of this encounter (statuses as of 09/02/2024) Medications ASPIRIN EC 81 MG PO TBECIndications:Cor onary atherosclerosis of [place] coronary artery,S/P coronary artery stent placement 1 TABLET DAILY 30 Tab 11 08/26/19 12 Active Betamethasone Dipropionate 0.05 % External Lotion (Diprosone) Apply topically to affected area 2 times a day. Apply to scalp as needed for flares. Taper frequency with improvement. 60 mL 3 11/12/19 23 Active Nitroglycerin 0.4 MG Sublingual Tablet Sublingual (Nitrostat)Indicati ons:S/P coronary artery stent placement,Acute non-ST elevation myocardial infarction (NSTEMI) (HCC) One tablet under tongue if needed for chest pain. May repeat 3 times. If chest pain continues, call [phone] 25 Tablet 11 11/17/19 24 Active Famotidine 40 MG Oral Tablet (Pepcid)Indications :Gastroesophageal reflux disease with esophagitis without hemorrhage Take 1 Tablet by mouth in the morning. 30 Tablet 11/17/19 24 Active Allopurinol 100 MG Oral Tablet (Zyloprim)Indicatio ns:Acute idiopathic gout, unspecified site Take 1 Tablet by mouth in the morning. 30 Tablet 11 12/30/19 24 Active B-12-SL 1000 MCG Sublingual Tablet Sublingual (Cyanocobalamin) Place 1,000 mcg under the tongue in the morning. 90 Tablet 3 01/02/20 24 Active LORazepam 0.5 MG Oral Tablet (Ativan)Indications :Panic attacks,TAWANA (generalized anxiety disorder) TAKE 1 TABLET BY MOUTH TWICE A DAY NEEDED FOR ANXIETY 60 Tablet 2 05/31/20 24 Active Mirabegron ER 50 MG Oral Tablet Extended Release 24 Hour (Myrbetriq) Take 1 Tablet by mouth in the morning. 30 Tablet 07/28/19 25 Active Vitamin D3 1.25 MG (15015 UT) Oral CapsuleIndications: Vitamin D deficiency TAKE 1 CAPSULE BY MOUTH ONE TIME PER WEEK 12 Capsule 1 08/13/19 25 Active Ondansetron HCl 4 MG Oral TabletIndications:N ausea and vomiting in adult Take 1 Tablet by mouth every 6 hours as needed for Nausea. 10 Tablet 08/17/19 25 Active metroNIDAZOLE 500 MG Oral Tablet (Flagyl)Indications :Sigmoid diverticulitis Take 1 Tablet by mouth in the morning and 1 Tablet at noon and 1 Tablet before bedtime. 30 Tablet 08/17/19 25 Active Ondansetron HCl 4 MG Oral TabletIndications:N ausea and vomiting in adult Take 1 Tablet by mouth every 6 hours as needed for Nausea. 10 Tablet 04/27/20 24 08/16/ 025 Discontinu ed(Refill) Ciprofloxacin HCl 500 MG Oral Tablet (Cipro) Take 1 Tablet by mouth in the morning and 1 Tablet before bedtime. Do all this for 10 days. 20 Tablet 08/17/19 25 025 documented as of this encounter (statuses as of 09/02/2024) Active Problems Problem Noted Date Diagnosed Date Recurrent major depressive disorder, in partial remission 10/22/2022 Major depressive disorder, recurrent, unspecifie d 10/24/2020 Inflammation of right sacroiliac joint 9 Sacroiliitis 09/07/2018 Gastroesophageal reflux disease without esophagi tis 09/07/2018 TAWANA (generalized anxiety disorder) 09/07/2018 S/P laparoscopic fundoplication 01/09/2017 S/P repair of paraesophageal hernia 01/09/2017 History of [place] (myocardial infarction) 10/18/2016 History of colon polyps 12/08/2015 Overview (12/09/2015): 12/07/15: rectal polyp, hyperplastic, repeat 3 years (Nov, 2018) 11/09/14: normal colon, repeat in 1 year 12/30/13: colon cancer hepatic flexure. Colon resection done with removal, repeat 1 year 05/08/09: normal colon, ileum biopsied normal colon biopsy eosinophilia ACEI/ARB contraindicated 11/11/2012 Overview (11/11/2012): Has CAD, but normal to low blood pressure, normal LVEF, no CHF, no DM, no CKD Dyslipidemia, goal LDL below 100 11/06/2011 Coronary atherosclerosis of [place] coronary yolanda ry 08/26/2011 S/P coronary artery stent placement 07/08/2011 Overview (07/18/2011): RCA and circumflex Allergic rhinitis Adjustment disorder with depressed mood documented as of this encounter (statuses as of 09/02/2024) Resolved Problems Problem Noted Date Diagnosed Date [...] Malaise and fatigue 08/26/2011 02/06/20 17 Acute [place] 07/08/2011 10/18/2016 Closed fracture of part of u pper end of humerus 08/26/2010 02/05/2017 Benign neoplasm of cerebral meninges 05/14/2009 05/27/2023 Overview (06/05/2009): asymptomatic seen on MRI Uterine leiomyoma 09/07/2018 Need for prophylactic hormon e replacement therapy (postmenopausal) 09/07/2018 Dermatitis 02/05/2017 documented as of this encounter (statuses as of 09/02/2024) Immunizations Name Administration Dates Next Due COVID-19 [...] Dos e, Trivalent, PF, IM (Fluzone HD) 06/03/2024,04/22/2017 Seasonal Influenza, PF, 6 M & above, [...] drink = 0.6 oz pur e alcohol) rare glass of wine PHQ-2 Answer Date Recorded PHQ Adult Total Score 0 06/08/2024 Hunger Vital Sign Answer Date Recorded Within the past 12 months, y ou worried that your food would run out before you got the money to buy more. Never true 06/08/20 24 Within the past 12 months, t he food you bought just didn't last and you didn't have money to get more. Never true 06/08/2024 Childcare Answer Date Recorded Do you feel overwhelmed with taking care of a child, family member or friend? No 06/08/2024 Does your family need help f inding childcare? (Household - for ages 0-17 years) Not on file 06/08/2024 Clothing Answer Date Recorded Have you been unable to get clothing when it was really needed? No 06/08/2024 Is your family able to get c lothes or diapers when needed? (Household - for ages 0-17 years) Not on file 06/08/2024 Personal Safety Answer Date Recorded Do you feel unsafe or have concerns for your saf ety? No 06/08/2024 Do you have concerns for you r family's safety? (Household - for ages 0-17 years) Not on file 06/08/2024 Utilities Answer Date Recorded Do you have trouble paying y our heating, water, or electric bill? No 06/08/2024 Is your family able to pay t he heat, water, or electric bill? (Household - for ages 0-17 years) Not on file 06/08/2024 Does your family have access to good internet? (Household - for ages 0-17 years) Not on file 06/08/2024 Employment Status Answer Date Recorded Are you unemployed or without regular income? No 06/08/2024 Does the household have a re lar source of income? (Household - for ages 0-17 years) Not on file 06/08/2024 Social Connections Answer Date Recorded How often do you feel lonely or isolated from th ose around you? Never 06/08/2024 Financial Resource Strain Answer Date R ecorded Do you have any trouble payi ng for your medications, or do you think you might in the future? No 06/08/2024 Does your family have troubl e paying for medicine? (Household - for ages 0-17 years) Not on file 06/08/2024 Transportation Needs Answer Date Record ed Do you have trouble getting a ride to medical visits or work? (Adult - for ages 18 years and over) Not on file 06/08/2024 Does your family have a hard time getting a ride to doctors visits? (Household - for ages 0-17 years) Not on file 06/08/2024 Has lack of transportation k ept you from medical appointments, meetings, work, or from getting things needed for daily living? Check all that apply. No 06/08/2024 Do you (or your family) have trouble finding or paying for a ride (transportation)? (Household - for ages 0-17 years) Not on file 06/08/2024 Housing Stability Answer Date Recorded Do you currently live in a s helter or have no steady place to sleep at night? No 06/08/2024 Do you think you are at risk of becoming homeless? (Adult - for ages 18 years and over) Not on file 06/08/2024 Does your family worry about paying for your home or becoming homeless? (Household - for ages 0-17 years) Not on file 1 08/08/2023 Are you homeless or worried that you might be in the future? No 06/08/2024 Are you (or your family) brad eless or worried that you might be in the future? (Household - for ages 0-17 years) Not on file Food Insecurity Answer Date Recorded Do you need food for this week? No 06/08/2024 Are you able to get enough f ood for your family? (Household - for ages 0-17 years) Not on file 06/08/2024 Does your family need food t his week? (Household - for ages 0-17 years) Not on file 06/08/2024 Do you always have enough fo od for your family? (Household - for ages 0-17 years) Not on file 06/08/2024 Food Insecurity Answer Date Recorded Within the past 12 months, y ou worried that your food would run out before you got the money to buy more. Never true 06/08/20 24 Within the past 12 months, t he food you bought just didn't last and you didn't have money to get more. Never true 06/08/2024 Do you need food for this week? No 06/08/2024 Comments No Sex and Gender Information Value Date Recorded Sex Assigned at Not on file Legal Sex Female 6:00 AM EST Gender Identity Not on file Sexual Orientation Not on file Occupation Industry Job Start Date Job End Date retired Not on file Not on file Not on file documented as of this encounter Functional Status * Are you deaf or do you have serious difficulty hearing? Answer Date of Assessment Author No 01/08/2017 8:40 PM Paz Marquis RN * Are you blind or do you have serious difficulty seeing, even when wearing glasses? Answer Date of Assessment Author No 01/08/2017 8:40 PM Paz Marquis RN * Do you have serious difficulty walking or climbing stairs? (5 years old or older) Answer Date of Assessment Author No 01/08/2017 8:40 PM Paz Marquis RN * Do you have difficulty dressing or bathing? (5 years old or older) Answer Date of Assessment Author No 01/08/2017 8:40 PM Paz Marquis RN * Because of a physical, mental, or emotional condition, do you have difficulty doing errands alone such as visiting a doctors office or shopping? (15 years old or older) Answer Date of Assessment Author No 01/08/2017 8:40 PM EDT Paz Colbert RN documented as of this encounter Mental Status * Because of a physical, mental, or emotional condition, do you have serious difficulty concentrating, remembering, or making decisions? (5 years old or older) Answer Entry Date Author No 01/08/2017 8:40 PM EDT Paz Colbert RN documented in this encounter Miscellaneous Notes * Telephone Encounter - Felicia Del Angel LPN - 08/17/2024 7:05 PM EST Left message for patient to return call. Please make patient aware of Dr. Sheridan's message below. I will also send her a [employer] message. * Telephone Encounter - Bruce Sheridan DO - 08/17/2024 9:20 AM EST I sent for Cipro and Flagyl. If she is feeling better she can hold off but if she is not improving she should start them. * Telephone Encounter - Leticia Foote PHARM Tech - 08/16/2024 6:32 PM EST Warm transfer to [facility] Thank you, Leticia Foote bit tripoler [employer] [facility] 08/16/2024,6:33 PM * Telephone Encounter - Felicia Del Angel LPN - 08/16/2024 6:32 PM EST Patient returned call. Reports pain in her lower abdomen, radiates into her back. She's also havingsome nausea. She says she went to [facility] for a refill on and they told her it wouldn't be ready until later this week. Symptoms started Friday night. She took the zofran on and was feeling a little better. * Telephone Encounter - Felicia Del Angel LPN - 08/16/2024 5:27 PM EST Left message for patient to return call. Please transfer her to a phone nurse to gather more details regarding her symptoms. * Telephone Encounter - Carolina Ramos OSA - 08/16/2024 12:38 PM EST Pt calling stating that she is having a diverticulis flare up. Pt is looking for advise on this. Thank you. Pt is not able to corn picker her nausea medication until due to stock. documented in this encounter Plan of Treatment Upcoming Encounters Date Type Department Care Team (Late st Contact Info) Description 02/25/2025 4:00 PM EDT Office Visit Family Practice [facility] [address] [facility] [place] [address] Bruce Sheridan, DO [address] [facility] [place] [address] Health Maintenance Due Date Last Done Comments COVID-19 Vaccine ( season) 2024 02/05/2023, 05/23/2021, 09/28/2020, Additional history exists DXA Scan 05/24/2025 05/24/2020, 10/12, 09/26/2011, Additional history exists Adult Wellness Visit 06/08/2025 06/08/2024, 06/21/20 21 Depression Monitoring 06/08/2025 06/08/2024, 024 DTap/Tdap Vaccines (3 - Td or Tdap) 12/29/2033 12/30/2023, 04/01/2013, 09/28/2003, Additional history exists Pneumococcal Vaccine: 50+ Years Completed 06/06/2014, 03/25/2007 Colonoscopy Discontinued 10/14/2018, 09/2018, 12/07/2015, Additional history exists Zoster Vaccines Completed 01/25/2021, 10/12, 06/14/2013 Influenza Vaccine (FLU shot) Completed 06/03/2024, 06/24/2023, 04/14/2020, Additional history exists HPV (Gardasil) Vaccine Aged Out No lo nger eligible based on patient's age to complete this topic Hepatitis B Vaccine Aged Out No longe r eligible based on patient's age to complete this topic MENINGOCOCCAL (MENACTRA/MENVEO) Aged Out No longer eligible based on patient's age to complete this topic Meningitis B Vaccine (Bexsero/Trumemba) Aged Out No longer eligible based on patient's age to complete this topic documented as of this encounter Medical Devices Implanted Type Area Lithographic Plate Maker Device Identifier Shelf Expiration Date Model / Serial / Lot Alloderm 2x4cm [id number] ( 8 Units ) - [id number] Implanted:Qty : 8 on 01/08/2017 by Wei Jurado MD at [facility] Tissue - Human N/A: Abdomen LIFE CELL ROXANA 09/11/2018 [id number] / / [id number] documented as of this encounter Visit Diagnoses Diagnosis Nausea and vomiting in adult Nausea with vomiting Sigmoid diverticulitis Diverticulitis of colon (without mention of hemorrhage) documented in this encounter Advance Directives * Full Code (Latest Code Status on File) Date Activated Date Inactivated Comments 01/08/2017 5:51 PM 01/13/2017 4:30 PM This order re flects the patients wishes and were consensually agreed upon. * Full Code Date Activated Date Inactivated Comments 01/08/2017 11:16 AM 01/08/2017 5:51 PM This order reflects the patients wishes and were consensually agreed upon. Care Teams Belling Machine Operator Relationship Specialty Start Date End Date Bruce Sheridan DO [address] [place] [address] PCP - General Family Medicine 04/07/24 documented as of this encounter
--- OUTSIDE RECORDS SUMMARY | 2024-09-03 02:52 | External Medical Summary | Summary of Care ---
Author Name Unknown Organization [facility] Address [address] [place] [address] Phone [phone] Care Team Providers Care Powder Guard Name Role Phone Bruce Sheridan DO Primary Care Provider [phone] Reason for Referral * Medication Prior Authorization - Pending Review Specialty Diagnoses / Procedures Referred By Adam cabrera Referred To Contact Diagnoses Vitamin D deficiency Shantel Vigil PA-C [address] [place] [address] [place] [address] Phone: tel: fax: Referral ID Status Reason Start Date Expiration Date V isits Requested Visits Authorized [id number] Pending Review 999 999 Reason for Visit * Reason Comments eRx-Medication Refill Encounter Details Date Type Department Care Team (Late st Contact Info) Description 08/12/2024 Refill Family Practice [facility] Brian Hanson [address] [facility] [place] [address] Bruce Sheridan DO [address] [facility] [place] [address] Vitamin D deficiency* Allergies Active Allergy Reactions Criticality Noted Date Comments Lisinopril Cough 11/06/2011 Procaine Edema face/lips/tongue,Itc maxim High 11/26/2016 Penicillins Hives High 08/06/1999 Hives down throat Sulfa Antibiotics Hives High 08/06/1999 Hives down throat Hydrocodone-Acetaminoph en Nausea/vomiting Low 08/23/2010 documented as of this encounter (statuses as of 08/13/2024) Medications ASPIRIN EC 81 MG PO TBECIndications:Co ronary atherosclerosis of [place] coronary artery,S/P coronary artery stent placement 1 TABLET DAILY 30 Tab 11 08/26/19 12 Active Betamethasone Dipropionate 0.05 % External Lotion (Diprosone) Apply topically to affected area 2 times a day. Apply to scalp as needed for flares. Taper frequency with improvement. 60 mL 3 11/12/19 23 Active Nitroglycerin 0.4 MG Sublingual Tablet Sublingual (Nitrostat)Indicat ions:S/P coronary artery stent placement,Acute non-ST elevation myocardial infarction (NSTEMI) (HCC) One tablet under tongue if needed for chest pain. May repeat 3 times. If chest pain continues, call 911 25 Tablet 11 11/17/19 24 Active Famotidine 40 MG Oral Tablet (Pepcid)Indication s:Gastroesophageal reflux disease with esophagitis without hemorrhage Take 1 Tablet by mouth in the morning. 30 Tablet 11 11/17/19 24 Active Allopurinol 100 MG Oral Tablet (Zyloprim)Indicati ons:Acute idiopathic gout, unspecified site Take 1 Tablet by mouth in the morning. 30 Tablet 11 12/30/19 24 Active B-12-SL 1000 MCG Sublingual Tablet Sublingual (Cyanocobalamin) Place 1,000 mcg under the tongue in the morning. 90 Tablet 3 01/02/20 24 Active Ondansetron HCl 4 MG Oral TabletIndications: Nausea and vomiting in adult Take 1 Tablet by mouth every 6 hours as needed for Nausea. 10 Tablet 04/27/20 24 Active LORazepam 0.5 MG Oral Tablet (Ativan)Indication s:Panic attacks,TAWANA (generalized anxiety disorder) TAKE 1 TABLET BY MOUTH TWICE A DAY NEEDED FOR ANXIETY 60 Tablet 2 05/31/20 24 Active Mirabegron ER 50 MG Oral Tablet Extended Release 24 Hour (Myrbetriq) Take 1 Tablet by mouth in the morning. 30 Tablet 11 07/28/19 25 Active Vitamin D3 1.25 MG (27763 UT) Oral CapsuleIndications :Vitamin D deficiency TAKE 1 CAPSULE BY MOUTH ONE TIME PER WEEK 12 Capsule 1 08/13/19 25 Active Vitamin D3 1.25 MG (66660 UT) Oral Capsule TAKE 1 CAPSULE BY MOUTH ONE TIME PER WEEK 12 Capsule 1 05/03/20 24 2024 Discontinued documented as of this encounter (statuses as of 08/13/2024) Active Problems Problem Noted Date Diagnosed Date Recurrent major depressive disorder, in partial remission 10/22/2022 Major depressive disorder, recurrent, unspecifie d 10/24/2020 Inflammation of right sacroiliac joint 9 Sacroiliitis 09/07/2018 Gastroesophageal reflux disease without esophagi tis 09/07/2018 TAWANA (generalized anxiety disorder) 09/07/2018 S/P laparoscopic fundoplication 01/09/2017 S/P repair of paraesophageal hernia 01/09/2017 History of [place] (myocardial infarction) 10/18/2016 History of colon polyps [...] LDL below 100 11/06/2011 Coronary atherosclerosis of [place] coronary yolanda ry 08/26/2011 S/P coronary artery stent placement 07/08/2011 Overview (07/18/2011): RCA and circumflex Allergic rhinitis Adjustment disorder with depressed mood documented as of this encounter (statuses as of 08/13/2024) Resolved Problems Problem Noted Date Diagnosed Date [...] Malaise and fatigue 08/26/2011 02/06/20 17 Acute [place] 07/08/2011 10/18/2016 Closed fracture of part of u pper end of humerus 08/26/2010 02/05/2017 Benign neoplasm of cerebral meninges 05/14/2009 05/27/2023 Overview (06/05/2009): asymptomatic seen on MRI Uterine leiomyoma 09/07/2018 Need for prophylactic hormon e replacement therapy (postmenopausal) 09/07/2018 Dermatitis 02/05/2017 documented as of this encounter (statuses as of 08/13/2024) Immunizations Name Administration Dates Next Due COVID-19 [...] No 06/08/2024 Does the household have a [facility] source [facility] income? (Household - for ages [...] ages 0-17 years) Not on file 06/08/2024 Comments No Sex and Gender Information [...] No 01/08/2017 8:40 PM Paz Marquis RN documented as of this encounter Mental Status * Because of a physical, mental, or emotional condition, do you have serious difficulty concentrating, remembering, or making decisions? (5 years old or older) Answer Entry Date Author No 01/08/2017 8:40 PM EDT Paz Colbert RN documented in this encounter Miscellaneous Notes * Telephone Encounter - Shantel Vigil PA-C - 08/13/2024 10:32 AM ESTSigned Prescriptions: Disp Refills Vitamin D3 1.25 MG (22117 UT) Oral Capsule 12 Cap*1 Sig: TAKE 1 CAPSULE BY MOUTH ONE TIME PER WEEKAuthorizing Provider: SHANTEL VIGIL * Telephone Encounter - Shantel Vigil PA-C - 08/13/2024 10:31 AM EST Component Latest Ref Rng 12/30/2023 25-Hydroxy Vitamin D >19 ng/mL 12 (L) Legend: (L) Low Inboxologist Note: Vitamin D deficiency (Primary) - Vitamin D3 1.25 MG (25831 UT) Oral Capsule; TAKE 1 CAPSULE BY MOUTH ONE TIME PER WEEK 08/13/2024 * Telephone Encounter - Ryan Dunlap CMA - 08/13/2024 9:38 AM ESTPending Prescriptions: Disp Refills Vitamin D3 1.25 MG (91408 UT) Oral Capsule*12 Cap*1 Sig: TAKE 1 CAPSULE BY MOUTH ONE TIME PER WEEK * Telephone Encounter - Ryan Dunlap CMA - 08/13/2024 9:37 AM EST Did you pend patient's preferred pharmacy and medication before forwarding?yes Pharmacy: [id number] [id number] [facility] Pending Prescriptions: Disp Refills Vitamin D3 1.25 MG (18077 UT) Oral Capsul*12 Cap*1 Sig: TAKE 1 CAPSULE BY MOUTH ONE TIME PER WEEK Last Visit: 07/27/2024 (in office), Visit date not found (telemedicine) Next Visit: 02/25/2025 If no future appointments scheduled, and last appointment is greater than a year ago, please schedule patient for a follow-up appointment Last date the medication was ordered: 05.03.2024 Is this request for a controlled substance?No Urine Drug Screen:No results found for this or any previous visit. Patient Phone Numbers Labs: Lab Results Component Value Date/Time CREAT 0.8 07/23/2024 03:47 PM CREAT 1.1 (H) 04/14/2020 11:11 AM POTASSIUM 3.9 07/23/2024 03:47 PM POTASSIUM 4.7 04/14/2020 11:11 AM TSH 1.61 12/30/2023 02:25 PM TSH 2.44 03/08/2015 12:45 PM LDL 118 10/03/2022 03:09 PM LDL 112 03/06/2018 10:20 AM LDL NOT APPLICABLE 03/06/2018 10:20 AM ALT 7 (L) 07/23/2024 03:47 PM ALT 15 04/14/2020 11:11 AM HGBA1C 5.4 10/03/2022 03:09 PM HGBA1C 6.0 (H) 04/14/2020 11:11 AM * Telephone Encounter - Santiago Sotelo - 08/12/2024 7:08 PM ESTPending Prescriptions: Disp Refills Vitamin D3 1.25 MG (41833 UT) Oral Capsule*12 Cap*1 Sig: TAKE 1CAPSULE BY MOUTH ONE TIME PER WEEK documented in this encounter Plan of Treatment Upcoming Encounters Date Type Department Care Team (Late st Contact Info) Description 02/25/2025 4:00 PM EDT [facility] [address] [facility] [place] [address] Bruce Sheridan DO [address] [place] [address] Health Maintenance Due Date Last Done Comments [...] this encounter Medical Devices Implanted Type Area Activities Volunteer Device Identifier Shelf Expiration Date Model / Serial / Lot Alloderm 2x4cm [id number] ( 8 Units ) - [id number] Implanted:Qty : 8 on 01/08/2017 by Wei Jurado [place] [facility] [place] - Human N/A: Abdomen LIFE CELL ROXANA 09/11/2018 [id number] / / [id number] documented as of this encounter Visit Diagnoses Diagnosis Vitamin D deficiency- Primary Unspecified vitamin D deficiency documented in this encounter Advance Directives * [...] and were consensually agreed upon. Care Teams Powder Guard Relationship Specialty Start Date End Date Bruce Sheridan DO [address] [place] [address] PCP - General Family Medicine 04/07/24 documented as of this encounter
--- OUTSIDE RECORDS SUMMARY | 2024-09-03 02:52 | External Medical Summary | Summary of Care ---
Author Name Unknown Organization [facility] Address [address] [place] [address] Phone [phone] Care Team Providers Care Clean Rice Broker Name Role Phone Bruce Sheridan DO Primary Care Provider [phone] Reason for Visit * Reason Onset Date Comments Advice 04/23/2024 Encounter Details Date Type Department Care Team (Late st Contact Info) Description 04/23[facility]24 [facility] [address] [facility] [place] [address] Bruce Sheridan DO [address] [facility] [place] [address] Advice Allergies Active Allergy Reactions Criticality Noted Date Comments Lisinopril Cough 11/06/2011 Procaine Edema face/lips/tongue,Itc maxim High 11/26/2016 Penicillins Hives High 08/06/1999 Hives down throat Sulfa Antibiotics Hives High 08/06/1999 Hives down throat Hydrocodone-Acetaminoph en Nausea/vomiting Low 08/23/2010 documented as of this encounter (statuses as of 07/23/2024) Medications ASPIRIN EC 81 MG PO TBECIndications:Cor onary atherosclerosis of [place] coronary artery,S/P coronary artery stent placement 1 TABLET DAILY 30 Tab 11 2 Active Betamethasone Dipropionate 0.05 % External Lotion (Diprosone) Apply topically to affected area 2 times a day. Apply to scalp as needed for flares. Taper frequency with improvement. 60 mL 3 3 Active Nitroglycerin 0.4 MG Sublingual Tablet Sublingual (Nitrostat)Indicati ons:S/P coronary artery stent placement,Acute non-ST elevation myocardial infarction (NSTEMI) (HCC) One tablet under tongue if needed for chest pain. May repeat 3 times. If chest pain continues, call [phone] 25 Tablet 11 4 Active Famotidine 40 MG Oral Tablet (Pepcid)Indications :Gastroesophageal reflux disease with esophagitis without hemorrhage Take 1 Tablet by mouth in the morning. 30 Tablet 11 4 Active Allopurinol 100 MG Oral Tablet (Zyloprim)Indicatio ns:Acute idiopathic gout, unspecified site Take 1 Tablet by mouth in the morning. 30 Tablet 11 4 Active B-12-SL 1000 MCG Sublingual Tablet Sublingual (Cyanocobalamin) Place 1,000 mcg under the tongue in the morning. 90 Tablet 3 4 Active documented as of this encounter (statuses as of 07/23/2024) Active Problems Problem Noted Date Diagnosed Date Recurrent major depressive disorder, in partial remission 10/22/2022 Major depressive disorder, recurrent, unspecifie d 10/24/2020 Inflammation of right sacroiliac joint 9 Sacroiliitis 09/07/2018 Gastroesophageal reflux disease without esophagi tis 09/07/2018 TAWANA (generalized anxiety disorder) 09/07/2018 S/P laparoscopic fundoplication 01/09/2017 S/P repair of paraesophageal hernia 01/09/2017 History of IA (myocardial infarction) 10/18/2016 History of colon polyps [...] LDL below 100 11/06/2011 Coronary atherosclerosis of [place] coronary yolanda ry 08/26/2011 S/P coronary artery stent placement 07/08/2011 Overview (07/18/2011): RCA and circumflex Allergic rhinitis Adjustment disorder with depressed mood documented as of this encounter (statuses as of 07/23/2024) Resolved Problems Problem Noted Date Diagnosed Date [...] Malaise and fatigue 08/26/2011 02/06/20 17 Acute IA 07/08/2011 10/18/2016 Closed fracture of part of u pper end of humerus 08/26/2010 02/05/2017 Benign neoplasm of cerebral meninges 05/14/2009 05/27/2023 Overview (06/05/2009): asymptomatic seen on MRI Uterine leiomyoma 09/07/2018 Need for prophylactic hormon e replacement therapy (postmenopausal) 09/07/2018 Dermatitis 02/05/2017 documented as of this encounter (statuses as of 07/23/2024) Immunizations Name Administration Dates Next Due COVID-19 [...] No 06/08/2024 Does the household have a [facility] source of income? (Household - for ages [...] Assessment Author No 01/08/2017 8:40 PM Paz Marquis, RN * Do you have serious difficulty walking or climbing stairs? (5 years old or older) Answer Date of Assessment Author No 01/08/2017 8:40 PM Paz Marquis RN * Do you have difficulty dressing or bathing? (5 years old or older) Answer Date of Assessment Author No 01/08/2017 8:40 PM EDT Paz Colbert RN * Because of a physical, mental, [...] Miscellaneous Notes * Telephone Encounter - Felicia Delgadillo OSA - 04/23/2024 2:46 PM EDT Reason for patient's call: home health calling to give update on patient Caller was transferred to [facility] at the nurse line. documented in this encounter Plan of Treatment Upcoming Encounters Date Type Department Care Team (Late st Contact Info) Description 07/27/2024 1:00 PM EST Office Visit [facility] [address] [place] [address] Bruce Sheridan, DO [address] [place] [address] 07/28/2024 2:30 PM EST Office Visit Urogynecology [facility] [address] [place] [address] Martin Soto MD [address] [place] [address] Health Maintenance Due Date Last Done Comments COVID-19 Vaccine ( season) 2024 02/05/2023, 05/23/2021, 09/28/2020, Additional history exists DXA Scan 05/24/2025 05/24/2020, 10/12, 09/26/2011, Additional history exists Adult Wellness Visit 06/08/2025 06/08/2024, 06/21/20 21 Depression Monitoring 06/08/2025 06/08/2024, 024 DTap/Tdap Vaccines (3 - Td or Tdap) 12/29/2033 12/30/2023, 04/01/2013, 09/28/2003, Additional history exists Pneumococcal Vaccine: 50+ Years Completed 06/06/2014, 03/25/2007 Colonoscopy Discontinued 10/14/2018, 0409/2018, 12/07/2015, Additional history exists Zoster Vaccines Completed [...] this encounter Medical Devices Implanted Type Area Rental Boats Caretaker Device Identifier Shelf Expiration Date Model / Serial / Lot Alloderm 2x4cm [id number] ( 8 Units ) - [id number] Implanted:Qty : 8 on 01/08/2017 by Wei Jurado MD at [place] [facility] [place] Tissue - Human N/A: Abdomen LIFE CELL ROXANA 09/11/2018 [id number] / / [id number] documented as of this encounter Advance Directives [...] and were consensually agreed upon. Care Teams Clean Rice Broker Relationship Specialty Start Date End Date Bruce Sheridan DO [address] [place] [address] PCP - General Family Medicine 04/07/24 documented as of this encounter
--- OUTSIDE RECORDS SUMMARY | 2024-09-03 02:52 | External Medical Summary ---
Author Name Unknown Address Unknown Organization [id number]:[place] [address] Laboratory Report Ordering Provider Test Date Status JAROD CARRION 07/23/2024 15:47:43 Final Observation Date Value Abnormality Reference (Units ) Status SYNC LEUKOCYTES IN BLOOD BY AUTOMATED COUNT 07/23/2024 15:47:43 9.24 4.00-10.80 (K/uL) Final Segs 07/23/2024 15:47:43 62.9 40.0-75.0 (%) Final Lymphs % 07/23/2024 15:47:43 27.4 18.0-42.0 (%) Final Monos 07/23/2024 15:47:43 7.7 1.0-11.0 (%) Final Eosinophils 07/23/2024 15:47:43 1.8 0.0-6.0 (%) Final Basos 07/23/2024 15:47:43 0.2 0.0-2.0 (%) Final Absolute Segs 07/23/2024 15:47:43 5.81 1.80-7.70 (K/uL) Final Lymphs, absolute 07/23/2024 15:47:43 2.53 1.00-4.80 (K/ul) Final Monos, Abs 07/23/2024 15:47:43 0.71 0.00-1.10 (K/uL) Final Eos, Abs 07/23/2024 15:47:43 0.17 0.00-0.70 (K/uL) Final Basos, Abs 07/23/2024 15:47:43 0.02 0.00-0.20 (K/uL) Final Performing Location [place] [address]
--- OUTSIDE RECORDS SUMMARY | 2024-09-03 02:52 | External Medical Summary | Summary of Care ---
Author Name Unknown Organization [facility] Address [address] [facility] [address] Phone [phone] Care Team Providers Care Purchasing/Receiving Name Role Phone Bruce Sheridan DO Primary Care Provider [phone] Reason for Visit * Reason Onset Date Comments Home Health 04/27/2024 Encounter Details Date Type Department Care Team (Late st Contact Info) Description 04/27/2024 [facility] [address] [facility] [place] [address] Bruce Sheridan DO [address] [facility] [place] [address] Home Health Allergies Active Allergy Reactions Criticality Noted Date Comments Lisinopril Cough 11/06/2011 Procaine Edema face/lips/tongue,Itc maxim High 11/26/2016 Penicillins Hives High 08/06/1999 Hives down throat Sulfa Antibiotics Hives High 08/06/1999 Hives down throat Hydrocodone-Acetaminoph en Nausea/vomiting Low 08/23/2010 documented as of this encounter (statuses as of 07/27/2024) Medications ASPIRIN EC 81 MG PO TBECIndications:Cor onary atherosclerosis of [place] coronary artery,S/P coronary artery stent placement 1 [...] the morning. 90 Tablet 3 4 Active Ondansetron HCl 4 MG Oral TabletIndications:N ausea and vomiting in adult Take 1 Tablet by mouth every 6 hours as needed for Nausea. 10 Tablet 4 Active documented as of this encounter (statuses as of 07/27/2024) Active Problems Problem Noted Date Diagnosed Date Recurrent major depressive disorder, in partial remission 10/22/2022 Major depressive disorder, recurrent, unspecifie d 10/24/2020 Inflammation of right sacroiliac joint 9 Sacroiliitis 09/07/2018 Gastroesophageal reflux disease without esophagi tis 09/07/2018 TAWANA (generalized anxiety disorder) 09/07/2018 S/P laparoscopic fundoplication 01/09/2017 S/P repair of paraesophageal hernia 01/09/2017 History of LA (myocardial infarction) 10/18/2016 History of colon polyps [...] LDL below 100 11/06/2011 Coronary atherosclerosis of [place] coronary yolanda ry 08/26/2011 S/P coronary artery stent placement 07/08/2011 Overview (07/18/2011): RCA and circumflex Allergic rhinitis Adjustment disorder with depressed mood documented as of this encounter (statuses as of 07/27/2024) Resolved Problems Problem Noted Date Diagnosed Date [...] Malaise and fatigue 08/26/2011 02/06/20 17 Acute LA 07/08/2011 10/18/2016 Closed fracture of part of u pper end of humerus 08/26/2010 02/05/2017 Benign neoplasm of cerebral meninges 05/14/2009 05/27/2023 Overview (06/05/2009): asymptomatic seen on MRI Uterine leiomyoma 09/07/2018 Need for prophylactic hormon e replacement therapy (postmenopausal) 09/07/2018 Dermatitis 02/05/2017 documented as of this encounter (statuses as of 07/27/2024) Immunizations Name Administration Dates Next Due COVID-19 [...] the money to buy more. Never true 11/26/20 24 Within the past 12 months, t [...] 06/08/2024 Does the household have a re gular source of income? (Household - for ages [...] 01/08/2017 8:40 PM Paz Marquis, RN * Are you blind or do you have serious difficulty seeing, even when wearing glasses? Answer Date of Assessment Author No 01/08/2017 8:40 PM Paz Marquis RN * Do you have serious difficulty walking or climbing stairs? (5 years old or older) Answer Date of Assessment Author No 01/08/2017 8:40 PM EDT Paz Colbert RN * Do you have difficulty dressing [...] Author No 01/08/2017 8:40 PM EDT Paz Colebrt RN documented as of this encounter Mental Status * Because of a physical, mental, or emotional condition, do you have serious difficulty concentrating, remembering, or making decisions? (5 years old or older) Answer Entry Date Author No 01/08/2017 8:40 PM Paz Marquis RN documented in this encounter Miscellaneous Notes * Telephone Encounter - Nikky Kaur LPN - 04/27/2024 10:58 AM EDT PT/OT/ST Ame Start of Care/Continuation Sean, Calling from: [facility] PT Plan of care: 2 times per week for 2 weeks: Then 1 times a week for 3 weeks Focusing on: strengthening stairs and fall prevention Concerns: yes Pain in left lower leg Symptoms: see narrative Vitals: T 97.2 P 92 RR 18 BP 114/68 SP O2 90% she had thick nail syriac on. No sob. Narrative: left lower leg is painful starting a few days ago. Pain is 2 to 8/10. Pain is with movement and wt bearing. No redness or warmth. Slight swelling on top of foot. She is not taking anythingfor pain. She has hx of gout. Pt denies injury. Pt has appt with Dary today to discuss pain. Advised that additional visit orders will be signed by Dr Sheridan and to fax to the office for signature documented in this encounter Plan of Treatment Upcoming Encounters Date Type Department Care Team (Late st Contact Info) Description 07/28/2024 2:30 PM EST Office Visit Urogynecology [facility] [address] [place] [address] Martin Soto MD [address] [place] [address] 02/25/2025 4:00 PM EDT Office Visit Family Practice [facility] [place] [address] [facility] [place] [address] Bruce Sheridan DO [address] [facility] [place] [address] Health Maintenance Due Date Last Done Comments COVID-19 Vaccine ( season) 2024 02/05/2023, 05/23/2021, 09/28/2020, Additional history exists DXA Scan 05/24/2025 05/24/2020, 10/12, 09/26/2011, Additional history exists Adult Wellness Visit 06/08/2025 06/08/2024, 06/21/20 21 Depression Monitoring 06/08/2025 06/08/2024, 024 DTap/Tdap Vaccines (3 - Td or Tdap) 12/29/2033 12/30/2023, 04/01/2013, 09/28/2003, Additional history exists Pneumococcal Vaccine: 50+ Years Completed 06/06/2014, 03/25/2007 Colonoscopy Discontinued 10/14/2018, 2018, 12/07/2015, Additional history exists Zoster Vaccines Completed [...] this encounter Medical Devices Implanted Type Area Core Assembly Supervisor Device Identifier Shelf Expiration Date Model / Serial / Lot Alloderm 2x4cm [id number] ( 8 Units ) - [id number] Implanted:Qty : 8 on 01/08/2017 by Wei Jurado MD [place] [facility] [place] - Human N/A: Abdomen LIFE CELL ROXANA 09/11/2018 [id number] / / [id number] documented as of this encounter Advance Directives [...] and were consensually agreed upon. Care Teams Purchasing/Receiving Relationship Specialty Start Date End Date Bruce Sheridan DO [address] [place] [address] PCP - General Family Medicine 04/07/24 documented as of this encounter
--- OUTSIDE RECORDS SUMMARY | 2024-09-03 02:52 | External Medical Summary | Summary of Care ---
Author Name Unknown Organization [facility] Address [address] [place] [facility] [place] [address] Phone [phone] Care Team Providers Care Cigar Making Supervisor Name Role Phone PrabhjotBruce woodward Primary Care Provider [phone] Reason for Visit * Reason Comments Outpatient Testing Encounter Details Date Type Department Care Team (Late st Contact Info) Description 07/23/2024 3:40 PM EST Laboratory [facility] [place]on [address] [place] [phone] [place], [facility] [address] [place] [address] Lower extremity edema; Pain of left lower extremity; Anemia, unspecified type Allergies Active Allergy Reactions Criticality Noted Date Comments Lisinopril Cough 11/06/2011 Procaine Edema face/lips/tongue,Itc maxim High 11/26/2016 Penicillins Hives High 08/06/1999 Hives down throat Sulfa Antibiotics Hives High 08/06/1999 Hives down throat Hydrocodone-Acetaminoph en Nausea/vomiting Low 08/23/2010 documented as of this encounter (statuses as of 07/23/2024) Medications ASPIRIN EC 81 MG PO TBECIndications:Cor onary atherosclerosis of [place] coronary artery,S/P coronary artery stent placement 1 TABLET DAILY 30 Tab 11 2 Active Betamethasone Dipropionate 0.05 % External Lotion (Diprosone) Apply topically to affected area 2 times a day. Apply to scalp as needed for flares. Taper frequency with improvement. 60 mL 3 3 Active Nitroglycerin 0.4 MG Sublingual Tablet Sublingual (Nitrostat)Indicati ons:S/P coronary artery stent placement,Acute non-ST elevation myocardial infarction (NSTEMI) ([facility]) One tablet under tongue if needed for [...] needed for Nausea. 10 Tablet 4 Active Vitamin D3 1.25 MG (95246 UT) Oral Capsule TAKE 1 CAPSULE BY MOUTH ONE TIME PER WEEK 12 Capsule 1 4 Active LORazepam 0.5 MG Oral Tablet (Ativan)Indications :Panic attacks,TAWANA (generalized anxiety disorder) TAKE 1 TABLET BY MOUTH TWICE A DAY NEEDED FOR ANXIETY 60 Tablet 2 4 Active documented as of this encounter [...] LDL below 100 11/06/2011 Coronary atherosclerosis of [place] coronary yolanda ry 08/26/2011 S/P coronary artery [...] Paz Marquis RN documented in this encounter Plan of Treatment Upcoming Encounters Date Type Department Care Team (Late st Contact Info) Description 07/27/2024 1:00 PM EST Office Visit Family Practice [facility] [place] [address] [facility] [place], [place] [address] Bruce Sheridan, DO [address] [place] [address] 07/28/2024 2:30 PM EST Office Visit Urogynecology [facility] [address] [place] [address] Martin Soto MD [address] [place] [address] Pending Results Name Type Priority Associated Diagnoses Date /Time COMPREHENSIVE METABOLIC PANEL Lab STAT Lower extremity edema Pain of left lower extremity 07/23/2024 3:47 PM EST CBC WITH WBC DIFFERENTIAL Lab STAT Lower extremity edema Pain of left lower extremity 07/23/2024 3:47 PM EST CBC Lab STAT Lower extremity edema Pain of left lower extremity 07/23/2024 3:47 PM EST DIFFERENTIAL, AUTOMATED Lab STAT Lower extremity edema Pain of left lower extremity 07/23/2024 3:47 PM EST Health Maintenance Due Date Last Done Comments [...] this encounter Medical Devices Implanted Type Area Motor Vehicle Lecturer Device Identifier Shelf Expiration Date Model / Serial / Lot Alloderm 2x4cm [id number] ( 8 Units ) - [id number] Implanted:Qty : 8 on 01/08/2017 by Wei Jurado MD at [place] [facility] [place] Tissue - Human N/A: Abdomen LIFE Jump or Fall ROXANA 09/11/2018 [id number] / / [id number] documented as of this encounter Visit Diagnoses Diagnosis Lower extremity edema Edema Pain of left lower extremity Anemia, unspecified type documented in this encounter Advance Directives * [...] and were consensually agreed upon. Care Teams Cigar Making Supervisor Relationship Specialty Start Date End Date Bruce Sheridan DO [address] [place] [place] [address] PCP - General Family Medicine 04/07/24 documented as of this encounter
--- OUTSIDE RECORDS SUMMARY | 2024-09-03 02:52 | External Medical Summary ---
Author Name Unknown Address Unknown Organization K0G:[facility] [address] [place] [address] Laboratory Report Ordering Provider Test Date Status LISSY LAY 07/28/2024 15:09:00 Final Observation Date Value Abnormality Reference (Units ) Status Color of Urine by Auto 07/28/2024 15:09:00 Yellow Light Yellow, Yellow Final Clarity, Urine 07/28/2024 15:09:00 Clear Clear Final Glucose [Mass/volume] in Urine by Automated test strip 07/28/2024 15:09:00 Negative Negative (mg/dL) Final Bilirubin.total [Presence] in Urine by Automated test strip 07/28/2024 15:09:00 Small Abnormal Negative Final Ketones [Mass/volume] in Urine by Automated test strip 07/28/2024 15:09:00 Negative Negative (mg/dL) Final Specific gravity, Urine 07/28/2024 15:09:00 >=1.030 1.003-1.030 Final Hemoglobin [Presence] in Urine by Automated test strip 07/28/2024 15:09:00 Negative Negative Final pH, Urine 07/28/2024 15:09:00 5.5 5.0, 5.5, 6.0, 6.5, 7.0, 7.5 (units) Final Protein [Mass/volume] in Urine by Automated test strip 07/28/2024 15:09:00 100 Abnormal Negative (mg/dL) Final Urobilinogen, Urine 07/28/2024 15:09:00 1.0 0.2, 1.0 (mg/dL) Final Nitrite [Presence] in Urine by Automated test strip 07/28/2024 15:09:00 Negative Negative Final Leukocyte esterase [Presence] in Urine by Automated test strip 07/28/2024 15:09:00 Negative Negative Final Performing Location [facility] [address] [place] [address]
--- OUTSIDE RECORDS SUMMARY | 2024-09-03 02:52 | External Medical Summary | Summary of Care ---
Author Name Unknown Organization [facility] Address [address] [place] [address] Phone [phone] Care Team Providers Care Counseling Psychologist Name Role Phone Bruce Sheridan DO Primary Care Provider [phone] Reason for Referral * Evaluate & Treat - Unlimited Visits (Within 30 days (routine)) - Authorized Specialty Diagnoses / Procedures Referred By Adam cabrera Referred To Contact Hematology/Oncology / Hematology Oncology Diagnoses Elevated platelet count Bruce Sheridan DO [address] [place] [address] Phone: tel: fax: Referral ID Status Reason Start Date Expiration Date Visits Requested Visits Authorized [id number] Authorized Specialty Services Required 07/27/[phone] Question Answer Referral Priority Within 30 days (routine) Where should this appointment be scheduled? [facility] Reason for Referral Abnormal CBC Reason for Visit * Reason Comments Follow Up Encounter Details Date Type Department Care Team (Late st Contact Info) Description 07/27/2024 1:00 PM EST Office Visit Family Practice [facility] [address] [place] [id number] Bruce Sheridan DO [address] [place] [id number] Elevated platelet count*; S/P coronary artery stent placement; Atherosclerosis of [place] coronary artery of [place] heart without angina pectoris; Dyslipidemia, goal LDL below 100; Gastroesophageal reflux disease without esophagitis; Recurrent major depressive disorder, in full remission (HCC) Allergies Active Allergy Reactions Criticality Noted Date Comments Lisinopril Cough 11/06/2011 Procaine Edema face/lips/tongue,Itc maxim High 11/26/2016 Penicillins Hives High 08/06/1999 Hives down throat Sulfa Antibiotics Hives High 08/06/1999 Hives down throat Hydrocodone-Acetaminoph en Nausea/vomiting Low 08/23/2010 documented as of this encounter (statuses as of 07/27/2024) Medications ASPIRIN EC 81 MG PO TBECIndications:Cor onary atherosclerosis of [place] coronary artery,S/P coronary artery stent placement 1 [...] non-ST elevation myocardial infarction (NSTEMI) ([facility]) One tablet under tongue if needed [...] Tablet 4 Active Vitamin D3 1.25 MG (00901 UT) Oral Capsule TAKE 1 CAPSULE BY [...] repair of paraesophageal hernia 01/09/2017 History of MA (myocardial infarction) 10/18/2016 History of colon polyps [...] LDL below 100 11/06/2011 Coronary atherosclerosis of [place] coronary yolanda ry 08/26/2011 S/P coronary artery [...] Malaise and fatigue 08/26/2011 02/06/20 17 Acute MA 07/08/2011 10/18/2016 Closed fracture of part of [...] on file documented as of this encounter Last Filed Vital Signs Vital Sign Reading Time Taken Comments Blood Pressure 110/72 07/27/2024 12:59 PM EST Pulse - - Temperature 35.1 C (95.2 F) 07/27/2024 12:[address] Respiratory Rate - - Oxygen Saturation - - Inhaled Oxygen Concentration - - Weight 57.6 kg (127 lb) 07/27/2024 12:59 PM EST Height - - Body Mass Index 23.79 06/08/2024 3:14 PM EST documented in this encounter Functional Status * Are you [...] Paz Marquis RN documented in this encounter Progress Notes * Bruce Sheridan, DO - 07/27/2024 1:19 PM EST Subjective: Paola Colbert is a 84 year old female. Chief Complaint Patient presents with Follow Up HPI: Pt here in follow-up. Will be a greatgrandmother in January. She has been getting gel shots in her knees. Last one 2 weeks ago. Still needs to give it time. 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 HEr knees are bone on bone. We discussed that she would need rehab after replacement if she opted in to doing it. We went through her different illnesses. C Diff, COVID. Platelets elevated. No current infection or C diff symptoms. Feeling pretty good right now. Tyleon helps her legs. Still can get out and do what she wishes. Goes to [employer] or the grocery store to walk. She is taking some mucinex for allergy symptoms. We discussed claritin. All clear mucous. PMHx, meds, and allergies reviewed Patient Active Problem List Diagnosis Allergic rhinitis Adjustment disorder with depressed mood S/P coronary artery stent placement Coronary atherosclerosis of [place] coronary artery Dyslipidemia, goal LDL below 100 ACEI/ARB contraindicated History of colon polyps History of MA (myocardial infarction) S/P laparoscopic fundoplication S/P repair of paraesophageal hernia Sacroiliitis (HCC) Gastroesophageal reflux disease without esophagitis [place] (generalized anxiety disorder) Inflammation of right sacroiliac joint (HCC) Major depressive disorder, recurrent, unspecified (HCC) Recurrent major depressive disorder, in partial remission (HCC) Current Outpatient Medications Medication Sig Dispense Refill ASPIRIN EC 81 MG PO TBEC 1 TABLET DAILY 30 Tab 11 Betamethasone Dipropionate 0.05 % External Lotion (Diprosone) Apply topically to affected area 2 times a day. Apply to scalp as needed for flares. Taper frequency with improvement. 60 mL 3 Nitroglycerin 0.4 MG Sublingual Tablet Sublingual (Nitrostat) One tablet under tongue if needed forchest pain. May repeat 3 times. If chest pain continues, call [phone] Tablet 11 Famotidine 40 MG Oral Tablet (Pepcid) Take 1 Tablet by mouth in the morning. 30 Tablet 11 Allopurinol 100 MG Oral Tablet (Zyloprim) Take 1 Tablet by mouth in the morning. 30 Tablet 11 B-12-SL 1000 MCG Sublingual Tablet Sublingual (Cyanocobalamin) Place 1,000 mcg under the tongue in the morning. 90 Tablet 3 Ondansetron HCl 4 MG Oral Tablet Take 1 Tablet by mouth every 6 hours as needed for Nausea. 10 Tablet 0 Vitamin D3 1.25 MG (49062 UT) Oral Capsule TAKE 1 CAPSULE BY MOUTH ONE TIME PER WEEK 12 Capsule 1 LORazepam 0.5 MG Oral Tablet (Ativan) TAKE 1 TABLET BY MOUTH TWICE A DAY NEEDED FOR ANXIETY 60 Tablet 2 No current facility-administered medications for this visit. Review of patient's allergies indicates: Allergen Reactions Novocain [Procaine] Edema face/lips/tongue and Itching Penicillins Hives Hives down throat Sulfa Antibiotics Hives Hives down throat Lisinopril Cough Vicodin [Hydrocodone-Acetaminophen] Nausea/vomiting OBJECTIVE: BP 110/72 | Temp 95.2 F (35.1 C) | Wt 127 lb (57.6 kg) | BMI 23.79 kg/m | BSA 1.58 m Estimated body mass index is 23.79 kg/m as calculated from the following: Height as of 06/08/24: 5' 1.26" (1.556 m). Weight as of this encounter: 127 lb (57.6 kg). BP Readings from Last 3 Encounters: 07/27/24 110/72 06/08/24 118/74 06/03/24 112/78 Wt Readings from Last 3 Encounters: 07/27/24 127 lb (57.6 kg) 06/08/24 131 lb (59.4 kg) 06/03/24 131 lb 4 oz (59.5 kg) ROS: Negative except for above PHYSICAL EXAM: General: alert, healthy, and no distress Head: Normocephalic, No masses, lesions, tenderness or abnormalities Heart: regular rate & rhythm, no murmur, and no gallops Lungs: chest symmetric with normal AP diameter, no chest deformities noted, no chest wall tenderness, lungs clear to auscultation ASSESSMENT/Plan Elevated platelet count (Primary) - HEMATOLOGY/ONCOLOGY REFERRAL OP S/P coronary artery stent placement Atherosclerosis of [place] coronary artery of [place] heart without angina pectoris Dyslipidemia, goal LDL below 100 Gastroesophageal reflux disease without esophagitis Recurrent major depressive disorder, in full remission (HCC) I spent a total of 30 minutes on the date of service in preparation, delivery, and documentation ofthe care provided to this patient, excluding any time spent on the performance of any procedure or separately billable services. Will get in to discuss platelets with hematology. Knees discussed with hope that she can get more active in the coming year. She definitely keeps going out to try! The above was discussed and understanding was expressed. Bruce Sheridan DO documented in this encounter Plan of Treatment Upcoming Encounters Date Type Department Care Team (Late st Contact Info) Description 07/28/2024 2:30 PM EST Office Visit Urogynecology [facility] [address] [place] [id number] Martin Soto MD [address] [place] [place] [id number] 02/25/2025 4:00 PM EDT Office Visit Family Practice [facility] [address] [facility] [address] [place] [phone] Bruce Sheridan DO [address] [facility] [place] [address] Scheduled Referrals Name Type Priority Associated Diagnoses Orde r Schedule HEMATOLOGY/ONCOLOGY REFERRAL OP Referral Within 30 days (routine) Elevated platelet count Ordered: 07/27/2024 Health Maintenance Due Date Last Done Comments [...] this encounter Medical Devices Implanted Type Area Assembly Lead Person Device Identifier Shelf Expiration Date Model / Serial / Lot Alloderm 2x4cm [id number] ( 8 Units ) - [id number] Implanted:Qty : 8 on 01/08/2017 by Wei Jurado MD at OR [facility] [place] Tissue - Human N/A: Abdomen [employer] [facility] 09/11/2018 [id number] / / [id number] documented as of this encounter Visit Diagnoses Diagnosis Elevated platelet count- Primary Essential thrombocythemia S/P coronary artery stent placement Postsurgical percutaneous transluminal coronary angioplasty status Atherosclerosis of [place] coronary artery of [place] heart without angina pectoris Dyslipidemia, goal LDL below 100 Other and unspecified hyperlipidemia Gastroesophageal reflux disease without esophagitis Esophageal reflux Recurrent major depressive disorder, in full remission (HCC) documented in this encounter Advance Directives * [...] and were consensually agreed upon. Care Teams Counseling Psychologist Relationship Specialty Start Date End Date Bruce Sheridan DO [address] [place] [address] PCP - General Family Medicine 04/07/24 documented as of this encounter
--- OUTSIDE RECORDS SUMMARY | 2024-09-03 02:52 | External Medical Summary | Summary of Care ---
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 / Gynecology Urology Diagnoses Incontinence in female Bruce Sheridan DO [address] [place] [address] Phone: tel: fax: Referral ID Status Reason Start Date Expiration Date Visits Requested Visits Authorized [id number] Authorized Specialty Services Required [phone] Encounter Details Date Type Department Care Team (Late st Contact Info) Description 07/28/2024 2:30 PM EST Office Visit Urogynecology [facility] [address] [place] [address] Martin Soto MD [address] [place] [address] Urge incontinence*; OAB (overactive bladder) Allergies Active Allergy Reactions Criticality Noted Date Comments Lisinopril Cough 11/06/2011 Procaine Edema face/lips/tongue,Itc maxim High 11/26/2016 Penicillins Hives High 08/06/1999 Hives down throat Sulfa Antibiotics Hives High 08/06/1999 Hives down throat Hydrocodone-Acetaminoph en Nausea/vomiting Low 08/23/2010 documented as of this encounter (statuses as of 07/28/2024) Medications ASPIRIN EC 81 MG PO TBECIndications:Cor onary atherosclerosis of cabazon coronary artery,S/P coronary artery stent placement 1 [...] placement,Acute non-ST elevation myocardial infarction (NSTEMI) ([facility]) One tablet under tongue [...] Tablet 4 Active Vitamin D3 1.25 MG (18754 UT) Oral Capsule TAKE 1 CAPSULE BY MOUTH ONE TIME PER WEEK 12 Capsule 1 4 Active LORazepam 0.5 MG Oral Tablet (Ativan)Indications :Panic attacks,TAWANA (generalized anxiety disorder) TAKE 1 TABLET BY MOUTH TWICE A DAY NEEDED FOR ANXIETY 60 Tablet 2 4 Active Mirabegron ER 50 MG Oral Tablet Extended Release 24 Hour (Myrbetriq) Take 1 Tablet by mouth in the morning. 30 Tablet 11 Active documented as of this encounter (statuses as of 07/28/2024) Active Problems Problem Noted Date Diagnosed Date Recurrent major depressive disorder, in partial remission 10/22/2022 Major depressive disorder, recurrent, unspecifie d 10/24/2020 Inflammation of right sacroiliac joint 9 Sacroiliitis 09/07/2018 Gastroesophageal reflux disease without esophagi tis 09/07/2018 TAWANA (generalized anxiety disorder) 09/07/2018 S/P laparoscopic fundoplication 01/09/2017 S/P repair of paraesophageal hernia 01/09/2017 History of GA (myocardial infarction) 10/18/2016 History of colon polyps [...] LDL below 100 11/06/2011 Coronary atherosclerosis of cabazon coronary yolanda ry 08/26/2011 S/P coronary artery stent placement 07/08/2011 Overview (07/18/2011): RCA and circumflex Allergic rhinitis Adjustment disorder with depressed mood documented as of this encounter (statuses as of 07/28/2024) Resolved Problems Problem Noted Date Diagnosed Date [...] Malaise and fatigue 08/26/2011 02/06/20 17 Acute GA 07/08/2011 10/18/2016 Closed fracture of part of u pper end of humerus 08/26/2010 02/05/2017 Benign neoplasm of cerebral meninges 05/14/2009 05/27/2023 Overview (06/05/2009): asymptomatic seen on MRI Uterine leiomyoma 09/07/2018 Need for prophylactic hormon e replacement therapy (postmenopausal) 09/07/2018 Dermatitis 02/05/2017 documented as of this encounter (statuses as of 07/28/2024) Immunizations Name Administration Dates Next Due COVID-19 [...] 0 07/14/1987 - 07/14/2012 Smokeless Tobacco: Never Tobacco Cessation:Counseling Given: Not Answered Comments:social smoker/1 pk / wk Alcohol Use [...] Reading Time Taken Comments Blood Pressure 110/72 07/28/2024 2:58 PM EST Pulse - - Temperature - - Respiratory Rate - - Oxygen Saturation - - Inhaled Oxygen Concentration - - Weight 57.9 kg (127 lb 11.2 oz) 07/28/2024 2:58 PM EST Height 152.4 cm (5') 07/28/2024 2:58 PM EST Body Mass Index 24.94 07/28/2024 2:58 PM EST documented in this encounter Functional [...] documented in this encounter Progress Notes * Martin Soto MD - 07/28/2024 3:15 PM EST Paola Colbert is a 84 year old female P 2 here for evaluation of urinary incontinence. Referred by Bruce Sheridan DO. For the past 2 years, Paola Colbert complains of sudden urinary urgency and urge incontinence if she can't reach the restroom in time. She has frequency every 2-3 hours, nocturia 2-3 times a night. Less often, she might have CHIO with strong coughing or sneezing. Urinary: Leakage: primarily urge incontinence Has leakage daily Wears pads: yes She has occasional sense of incomplete bladder emptying. Prior/current treatment include: none UTI: denies Voiding detail: Daytime frequency: every 2-3 hours Urgency yes Nocturia:2-3 times Hesitancy no Straining no Hematuria no Postvoid dribbling no Postvoid urgency no Manual reduction no Drinks: no caffeine Prolapse: She denies a palpable bulge. GI: Bowel habits: normal bowel movement She denies fecal incontinence. Prior/ current treatments include: none Gynecologic history: No prior gynecologic history. Medical History: Patient Active Problem List Diagnosis Allergic rhinitis Adjustment disorder with depressed mood S/P coronary artery stent placement Coronary atherosclerosis of cabazon coronary artery Dyslipidemia, goal LDL below 100 ACEI/ARB contraindicated History of colon polyps History of GA (myocardial infarction) S/P laparoscopic fundoplication S/P repair of paraesophageal hernia Sacroiliitis (HCC) Gastroesophageal reflux disease without esophagitis TAWANA (generalized anxiety disorder) Inflammation of right sacroiliac joint (HCC) Major depressive disorder, recurrent, unspecified (HCC) Recurrent major depressive disorder, in partial remission (HCC) Past Medical History: Diagnosis Date Acute GA (HCC) 07/08/2011 Adjustment disorder with depressed mood Allergic rhinitis Benign neoplasm of cerebral meninges (HCC) 05/2009 asymptomatic seen on MRI Dermatitis Mass of hepatic flexure of colon 12/30/13 Need for prophylactic hormone replacement therapy (postmenopausal) S/P coronary artery stent placement 07/08/2011 RCA and circumflex, 3 KAYY placed [facility] Uterine leiomyoma Patient sees Bruce Sheridan DO as her primary care provider. Surgical History: Past Surgical History: Procedure Laterality Date COLONOSCOPY W/ BIOPSY (RECTUM) 05/08/09 diverticulosis-biopsies, mild inflammation COLONOSCOPY, DIAGNOSTIC (RECTUM) 12/30/2013 Invasive adenocarcinoma-hepatic flexure, diverticulosis/COLONOSCOPY FLEXIBLE PROXIMAL DIAGNOSTIC performed by Talon Esparza MD at [facility] COLONOSCOPY, DIAGNOSTIC (RECTUM) 11/09/2014 diverticulosis, repeat 1 yr/COLONOSCOPY FLEXIBLE PROXIMAL DIAGNOSTIC performed by Talon Esparza MD at [facility] COLONOSCOPY, DIAGNOSTIC (RECTUM) 12/07/2015 hyperplastic polyp, diverticulosis, repeat 3 yrs/COLONOSCOPY FLEXIBLE PROXIMAL DIAGNOSTIC performedby Talon Esparza MD at [facility] COLONOSCOPY, DIAGNOSTIC (RECTUM) 10/14/2018 COLONOSCOPY FLEXIBLE PROXIMAL DIAGNOSTIC performed by Quin Bains MD at [facility] COLORECTAL CANCER SCREEN; COLON 12/28/01 diverticulitis EGD, FLEXIBLE, DIAGNOSTIC 11/24/2013 normal bx, HH w/ multiple [place]wn ulcers/done@ [facility] EGD, FLEXIBLE, DIAGNOSTIC 08/28/2016 Large hiatus hernia/ESOPHAGOGASTRODUODENOSCOPY (EGD), FLEXIBLE, TRANSORAL, DIAGNOSTIC performed by Talon Esparza MD at [facility] EGD, FLEXIBLE, DIAGNOSTIC 06/19/2016 Keyshawn ulcers, lg HH/inpt [facility] EGD, FLEXIBLE, DIAGNOSTIC N/A 01/08/2017 ESOPHAGOGASTRODUODENOSCOPY (EGD), FLEXIBLE, TRANSORAL, DIAGNOSTIC performed by Wei Jurado MD [place] [facility] [place]GD, FLEXIBLE, W/BIOPSY 07/22/2008 chronic gastritis, ?celiac dx, lab neg LAPAROSCOPIC COLECTOMY PARTIAL WITH ANASTOMOSIS 01/11/14 01/11/2014 Laparoscopic hand assisted right hemicolectomy 01/11/14 Dr. Brewer at [facility] [employer] Harley Bledsoe PA-C PARAESOPHAGEAL HERNIA REPAIR, LAP W/ MESH N/A 01/08/2017 LAPAROSCOPIC PARAESOPHAGEAL HERNIA REPAIR W/MESH performed by Wei Jurado MD at [facility] PARAESOPHAGEAL HERNIA REPAIR, LAP W/O MESH N/A 01/08/2017 LAPAROSCOPIC PARAESOPHAGEAL HERNIA REPAIR WO/ MESH performed by Wei Jurado MD [place] [facility] PL[place] INTRACORONARY STENT, ADD'L VS 07/08/11 two KAYY to RCA, one KAYY to circumflex PUNCTURE DRAINAGE BREAST CYST Breast Biopsy REMOVAL OF OVARY/OVIDUCT(S) Ovary/Tube(S) Removal tublar REMOVE PILONIDAL CYST, SIMPLE SACROILIAC JOINT INJECT W/GUIDANCE 05/25/2018 INJECTION SACROILIAC JOINT performed by Jeb Baker DO at [facility] SACROILIAC JOINT INJECT W/GUIDANCE 02/25/2019 INJECTION SACROILIAC JOINT performed by Jeb Baker DO at OR [facility] VAGINAL DELIVERY ONLY Vaginal Delivery VAGINAL DELIVERY ONLY Vaginal Delivery OB History 4 Para 2 Term 2 0 AB 1 Living 2 SAB 0 IAB 0 Ectopic 1 Multiple 0 Live Births Vaginal deliveries: 2 C/S: 0 Allergies: Review of patient's allergies indicates: Allergen Reactions Novocain [Procaine] Edema face/lips/tongue and Itching Penicillins Hives Hives down throat Sulfa Antibiotics Hives Hives down throat Lisinopril Cough Vicodin [Hydrocodone-Acetaminophen] Nausea/vomiting Active Medications: Current Outpatient Medications Medication Sig Dispense Refill [...] 10 Tablet 0 Vitamin D3 1.25 MG (23672 UT) Oral Capsule TAKE 1 CAPSULE BY MOUTH ONE TIME PER WEEK 12 Capsule 1 LORazepam 0.5 MG Oral Tablet (Ativan) TAKE 1 TABLET BY MOUTH TWICE A DAY NEEDED FOR ANXIETY 60 Tablet 2 No current facility-administered medications for this visit. Social History: Social History Socioeconomic History Marital status: Spouse name: Jefferson Number of children: 2 Occupational History Occupation: retired Employer: [employer] [address] Tobacco Use Smoking status: Former Current packs/day: 0.00 Average packs/day: 0.5 packs/day for 25.0 years (12.5 ttl pk-yrs) Types: Cigarettes Start date: 07/14/1987 Quit date: 07/14/2012 Years since quittin.0 Smokeless tobacco: Never Tobacco comments: social smoker/1 pk / wk Vaping Use Vaping status: Never Used Substance and Sexual Activity Alcohol use: Yes Comment: rare glass of wine Drug use: No Sexual activity: Yes Partners: Male Other Topics Concern Service No Blood Transfusions Yes Comment: with ectopic prregnancy Caffeine Concern No Occupational Exposure No Hobby Hazards No Sleep Concern No Stress Concern No Weight Concern No Special Diet No Back Care No Exercise Yes Seat Belt Yes Self-Exams Yes Social History Narrative Born and raised in [place], [facility] resident Social Needs Financial Resource Strain: Low Risk (06/08/2024) Financial Resource Strain Do you have any trouble paying for your medications, or do you think you might in the future? (Adult - for ages 18 years and over): No Food Insecurity: No Food Insecurity (06/08/2024) Food Insecurity Do you need food for this week? (Adult - for ages 18 years and over): No Transportation Needs: No Transportation Needs (06/08/2024) Transportation Needs Has lack of transportation kept you from medical appointments, meetings, work, or from getting things needed for daily living? Check all that apply. (Adult - for ages 18 years and over): No Social Connections: Socially Integrated (06/08/2024) Social Connections How often do you feel lonely or isolated from those around you? (Adult - for ages 18 years and over): Never Housing Stability: Low Risk (06/08/2024) Housing Stability Do you currently live in a assisted or have no steady place to sleep at night? (Adult - for ages 18 years and over): No Are you homeless or worried that you might be in the future? (Adult - for ages 18 years and over): No Family History: Family History Problem Relation Name Age of Onset Cancer Mother ovarian Heart Disorder Father rheumatic heart disease No Past Hx Daughter No Past Hx Son Change Management Manager Documentation: Provider requested station mechanic Name of Change Management Manager: Elsa Eduardo EXAM: Well developed well nourished female in no apparent distress. Alert oriented x3 HEENT: NC AT HEART: Normal peripheral pulse, edema neg THYROID: no obvious neck mass LUNG: No increased respiratory effort ABDOMEN: Soft, NT, ND, no masses PELVIC EXAM: Ext. Gen: Normal external female genitalia, no vulvar lesions. Clitoris, labia, minor vestibular glands and urethral meatus appear normal. Urethra and bladder palpated non-tender with no masses and no expressible exudate. Vagina atrophic without lesions. Cervix: nl BIMANUAL EXAM: no cervical motion tenderness, the uterus is smooth, mobile, non tender and of normal size. No adnexal masses or tenderness elicited. MEETING PLANNER: neg Levator ani muscle strength 3. No tenderness elicited on palpation Rectovaginal exam: perianal area normal, anus normal, digital rectal exam deferred No prolapse The following data points/ labs were reviewed: Results for orders placed or performed in visit on 07/28/24 URINALYSIS, POINT OF CARE Result Value Ref Range Color, Urine Yellow Light Yellow, Yellow Clarity, Urine Clear Clear Glucose, Urine Negative Negative mg/dL Bilirubin, Urine Small (A) Negative Ketone, Urine Negative Negative mg/dL Specific [place], Urine >=1.030 1.003 - 1.030 Blood, Urine Negative Negative pH, Urine 5.5 5.0, 5.5, 6.0, 6.5, 7.0, 7.5 units Protein, Urine 100 (A) Negative mg/dL Urobilinogen, Urine 1.0 0.2, 1.0 mg/dL Nitrite, Urine Negative Negative Esterase, Urine Negative Negative URINALYSIS, POINT OF CARE Result Value Ref Range Color, Urine Yellow Light Yellow, Yellow Clarity, Urine Clear Clear Glucose, Urine Negative Negative mg/dL Bilirubin, Urine Small (A) Negative Ketone, Urine Negative Negative mg/dL Specific [place], Urine >=1.030 1.003 - 1.030 Blood, Urine Negative Negative pH, Urine 5.5 5.0, 5.5, 6.0, 6.5, 7.0, 7.5 units Protein, Urine 100 (A) Negative mg/dL Urobilinogen, Urine 1.0 0.2, 1.0 mg/dL Nitrite, Urine Negative Negative Esterase, Urine Negative Negative PVR: 23 ml via bladder scan Impression: This is a 84 year old with: Urge incontinence (Primary) OAB (overactive bladder) Other orders - URINALYSIS, POINT OF CARE - URINALYSIS, POINT OF CARE We reviewed OAB and urge incontinence and therapy options. We agreed to limit bladder irritants in the diet, kegel exercises, and Myrbetriq 50 mg daily. Side effects, risks, benefits, and alternatives reviewed. All questions answered. Follow up in 4-6 weeks. Martin Soto MD 07/28/2024 3:15 PM I spent a total of 55 minutes on the date of service in preparation, delivery, and documentation ofthe care provided to Paola Colbert excluding any time spent in the performance of separately billed services. documented in this encounter Nursing Notes * Acacia Dan MED ASSIST - 07/28/2024 3:00 PM EST Pt presents as a new pt No pain or bleeding. Pt feels she is not emptying her bladder. Leakage- C/L/S Urgency with leakage. Freq- every 2hrs. Nocturia- 2-3x. Pt denies bulge PVR-23 documented in this encounter Plan of Treatment Upcoming Encounters Date Type Department Care Team (Late st Contact Info) Description 02/25/2025 4:00 PM EDT Office Visit Family Practice State Brian Barroso [address] [place] [id number] Bruce Sheridan DO [address] [place] [address] Health Maintenance Due Date Last Done Comments [...] this encounter Medical Devices Implanted Type Area Nutrition Services Associate Device Identifier Shelf Expiration Date Model / Serial / Lot Alloderm 2x4cm [id number] ( 8 Units ) - [id number] Implanted:Qty : 8 on 01/08/2017 by Wei Jurado MD [place] [facility] Tissue - Human N/A: Abdomen [employer]LL ROXANA 09/11/2018 [id number] / / [id number] documented as of this encounter Procedures Procedure Name Priority Date/Time Associated Diagnosis Comments URINALYSIS, POINT OF CARE GAYE 07/28/2024 3:09 PM EST URINALYSIS, POINT OF CARE Routine 07/28/2024 3:09 PM EST documented in this encounter Results * (ABNORMAL) URINALYSIS, POINT OF CARE (07/28/2024 3:09 PM EST) Color, Urine Yellow Light Yellow, Yellow 07/28/2024 3:12 PM EST [facility] Clarity, Urine Clear Clear 07/28/2024 3:12 PM EST [facility] Glucose, Urine Negative Negative mg/dL 07/28/2024 3:12 PM EST [facility] Bilirubin, Urine Small(A) Negative 07/28/2024 3:12 PM EST [facility] Ketone, Urine Negative Negative mg/dL 07/28/2024 3:12 PM EST [facility] Specific [place], Urine >=1.030 1.003 - 1.030 07/28/2024 3:12 PM EST [facility] Blood, Urine Negative Negative 07/28/2024 3:12 PM EST [facility] pH, Urine 5.5 5.0, 5.5, 6.0, 6.5, 7.0, 7.5 units 07/28/2024 3:12 PM EST [facility] Protein, Urine 100(A) Negative mg/dL 07/28/2024 3:12 PM EST [facility] Urobilinogen, Urine 1.0 0.2, 1.0 mg/dL 07/28/2024 3:12 PM EST [facility] Nitrite, Urine Negative Negative 07/28/2024 3:12 PM EST [facility] Esterase, Urine Negative Negative 07/28/2024 3:12 PM EST [facility] Urine 07/28/2024 3:09 PM EST 07/28/2024 3:12 PM EST us Martin Soto MD LAB POINT OF CARE TE ST DOCKED DEVICE UNSOLICITED RESULTS Final Result [facility] [address] [place] [address] * (ABNORMAL) URINALYSIS, POINT OF CARE (07/28/2024 3:09 PM EST) Color, Urine Yellow Light Yellow, Yellow 07/28/2024 3:11 PM EST [facility] Clarity, Urine Clear Clear 07/28/2024 3:11 PM EST [facility] Glucose, Urine Negative Negative mg/dL 07/28/2024 3:11 PM EST [facility] Bilirubin, Urine Small(A) Negative 07/28/2024 3:11 PM EST [facility] Ketone, Urine Negative Negative mg/dL 07/28/2024 3:11 PM EST [facility] Specific [place], Urine >=1.030 1.003 - 1.030 07/28/2024 3:11 PM EST [facility] Blood, Urine Negative Negative 07/28/2024 3:11 PM EST [facility] pH, Urine 5.5 5.0, 5.5, 6.0, 6.5, 7.0, 7.5 units 07/28/2024 3:11 PM EST [facility] Protein, Urine 100(A) Negative mg/dL 07/28/2024 3:11 PM EST [facility] Urobilinogen, Urine 1.0 0.2, 1.0 mg/dL 07/28/2024 3:11 PM EST [facility] Nitrite, Urine Negative Negative 07/28/2024 3:11 PM EST [facility] Esterase, Urine Negative Negative 07/28/2024 3:11 PM EST [facility] Urine 07/28/2024 3:09 PM EST 07/28/2024 3:11 PM EST us Martin Soto MD LAB POINT OF CARE TE ST DOCKED DEVICE UNSOLICITED RESULTS Final Result [facility] [place] [id number] documented in this encounter Visit Diagnoses Diagnosis Urge incontinence- Primary OAB (overactive bladder) Hypertonicity of bladder documented in this encounter Advance Directives * [...] and were consensually agreed upon. Care Teams Expenditure Requisition Clerk Relationship Specialty Start Date End Date Bruce Sheridan DO [address] [place], [place] [address] PCP - General Family Medicine 04/07/24 documented as of this encounter
--- OUTSIDE RECORDS SUMMARY | 2024-09-03 02:52 | External Medical Summary ---
Author Name Unknown Address Unknown Organization [facility] [address] [place] [address] Laboratory Report Ordering Provider Test Date Status JAROD CARRION 07/23/2024 15:47:43 Final Observation Date Value Abnormality Reference (Units ) Status BUN 07/23/2024 15:47:43 26 Above high normal 6-20 (mg/dL) Final Creatinine 07/23/2024 15:47:43 0.8 0.5-1.0 (mg/dL) Final Glomerular filtration rate/1.73 sq M.predicted [Volume Rate/Area] in Serum, Plasma or Blood by Creatinine-based formula (CKD-EPI) 07/23/2024 15:47:43 73 >=60 (mL/min) Final eGFR is calculated based on the CKD-EPI 2020 equation. Sodium 07/23/2024 15:47:43 141 135-146 (m mol/L) Final Potassium 07/23/2024 15:47:43 3.9 3.5-5.1 (m mol/L) Final Cl 07/23/2024 15:47:43 104 98-107 (mm ol/L) Final CO2 07/23/2024 15:47:43 25 22-32 (mmo l/L) Final Anion gap 07/23/2024 15:47:43 12 7-15 (mmol /L) Final Glucose 07/23/2024 15:47:43 102 70-120 (mg /dL) Final Albumin 07/23/2024 15:47:43 4.1 3.8-5.0 (g /dL) Final AST (Aspartate aminotransferase) 07/23/2024 15:47:43 17 10-35 (U/L) Fin al Alk Phos 07/23/2024 15:47:43 103 35-130 (U/ L) Final Bilirubin, Total 07/23/2024 15:47:43 0.2 <=1 .2 (mg/dL) Final Calcium 07/23/2024 15:47:43 9.8 8.4-10.2 ( mg/dL) Final Protein 07/23/2024 15:47:43 8.2 6.0-8.3 (g /dL) Final ALT (Alanine aminotransferase) 07/23/2024 15:47:43 7 Below low normal 10-35 (U/L) Final Performing Location [facility] [address] [place] [address]
--- OUTSIDE RECORDS SUMMARY | 2024-09-03 02:52 | External Medical Summary ---
Author Name Unknown Address Unknown Organization K09:[facility] [place] [address] Laboratory Report Ordering Provider Test Date Status JAROD CARRION 07/23/2024 15:47:43 Final Observation Date Value Abnormality Reference (Units ) Status Nucleated erythrocytes/100 leukocytes [Ratio] in Blood by Automated count 07/23/2024 15:47:43 Final Performing Location [facility] [place] [address]
--- OUTSIDE RECORDS SUMMARY | 2024-09-03 02:53 | External Medical Summary | Summary of Care ---
Author Name Unknown Organization [facility] Address [address] [place] [address] Phone [phone] Care Team Providers Care Process Control Tech Name Role Phone Desi Quinonez DO Primary Care Provider [phone] Reason for Visit * Reason Comments eRx-Medication Refill Encounter Details Date Type Department Care Team (Late st Contact Info) Description [facility]/27[facility] [address] [facility] [place] [address] Desi Quinonez DO [address] [facility] [place] [address] Panic attacks; TAWANA (generalized anxiety disorder) Allergies Active Allergy Reactions Criticality Noted Date Comments Lisinopril Cough 11/06/2011 Procaine Edema face/lips/tongue,Itc maxim High 11/26/2016 Penicillins Hives High 08/06/1999 Hives down throat Sulfa Antibiotics Hives High 08/06/1999 Hives down throat Hydrocodone-Acetaminoph en Nausea/vomiting Low 08/23/2010 documented as of this encounter (statuses as of 05/31/2024) Medications ASPIRIN EC 81 MG PO TBECIndications:Co ronary atherosclerosis of [place] coronary artery,S/P coronary artery stent placement 1 [...] for Nausea. 10 Tablet 04/27/20 24 Active Vitamin D3 1.25 MG (17763 UT) Oral Capsule TAKE 1 CAPSULE BY MOUTH ONE TIME PER WEEK 12 Capsule 1 05/03/20 24 Active LORazepam 0.5 MG Oral Tablet (Ativan)Indication s:Panic attacks,TAWANA (generalized anxiety disorder) TAKE 1 TABLET BY MOUTH TWICE A DAY NEEDED FOR ANXIETY 60 Tablet 2 05/31/20 24 Active LORazepam 0.5 MG Oral Tablet (Ativan)Indication s:Panic attacks,TAWANA (generalized anxiety disorder) Take 1 Tablet by mouth 2 times a day as needed for Anxiety. 60 Tablet 2 12/30/19 24 2023 Discontinued documented as of this encounter (statuses as of 05/31/2024) Active Problems Problem Noted Date Diagnosed Date Recurrent major depressive disorder, in partial remission 10/22/2022 Major depressive disorder, recurrent, unspecifie d 10/24/2020 Inflammation of right sacroiliac joint 9 Sacroiliitis 09/07/2018 Gastroesophageal reflux disease without esophagi tis 09/07/2018 TAWANA (generalized anxiety disorder) 09/07/2018 S/P laparoscopic fundoplication 01/09/2017 S/P repair of paraesophageal hernia 01/09/2017 History of NE (myocardial infarction) 10/18/2016 History of colon polyps [...] LDL below 100 11/06/2011 Coronary atherosclerosis of [place] coronary yolanda ry 08/26/2011 S/P coronary artery stent placement 07/08/2011 Overview (07/18/2011): RCA and circumflex Allergic rhinitis Adjustment disorder with depressed mood documented as of this encounter (statuses as of 05/31/2024) Resolved Problems Problem Noted Date Diagnosed Date [...] Malaise and fatigue 08/26/2011 02/06/20 17 Acute NE 07/08/2011 10/18/2016 Closed fracture of part of u pper end of humerus 08/26/2010 02/05/2017 Benign neoplasm of cerebral meninges 05/14/2009 05/27/2023 Overview (06/05/2009): asymptomatic seen on MRI Uterine leiomyoma 09/07/2018 Need for prophylactic hormon e replacement therapy (postmenopausal) 09/07/2018 Dermatitis 02/05/2017 documented as of this encounter (statuses as of 05/31/2024) Immunizations Name Administration Dates Next Due COVID-19 [...] Recorded PHQ Adult Total Score 1 06/21/2021 Comments No Sex and Gender Information Value [...] Telephone Encounter - Desi Quinonez DO - 05/31/2024 1:01 PM ESTSigned Prescriptions: Disp Refills LORazepam 0.5 MG Oral Tablet (Ativan) 60 Tab*2 Sig: TAKE 1 TABLET BY MOUTH TWICE A DAY NEEDED FOR ANXIETY Authorizing Provider: DESI QUINONEZ * Telephone Encounter - Shahida Lynch [facility] - 05/29/2024 10:13 AM EST Pending Prescriptions: Disp Refills LORazepam 0.5 MG Oral Tablet [Pharmacy Med*60 Tab*2 Sig: TAKE 1 TABLET BY MOUTH TWICE A DAY NEEDED FOR ANXIETY * Telephone Encounter - Shahida Lynch [facility] - 05/29/2024 10:12 AM EST I have reviewed the patients controlled substance dispensing history in the Prescription Drug Monitoring Program in compliance with the [facility] regulations before prescribing a controlled substance. PDMP checked on 05/29/2024. Pending Prescriptions: Disp Refills LORazepam 0.5 MG Oral Tablet (Ativan) [Ph*60 Tab*2 Sig: TAKE 1 TABLET BY MOUTH TWICE A DAY NEEDED FOR ANXIETY Last Visit: 04/29/2024 (in office), Visit date not found (telemedicine) Next Visit: 06/03/2024 Date medication was last filled: 04/21/24 Date medication is due for refill: 05/20/24 Pharmacy: [id number] [address] [place] [address] Is this request for a controlled substance? Yes and Urine Drug Screen Not completed Toxicology results: No results found for this or any previous visit. Please approve if appropriate. Thanks, Shahida Lynch, PharmD Clinical Pharmacist [facility] ([facility]) [phone] 05/29/2024 10:13 AM documented in this encounter Plan of Treatment Upcoming Encounters Date Type Department Care Team (Late st Contact Info) Description 06/03/2024 5:20 PM EST Office Visit [facility] [place] [address] [facility] [address] [place] [address] Jannette Noyola PA-C [address] [facility] [place] [address] 07/27/2024 1:00 PM EST Office Visit [facility] [place] [address] [facility] [place] [address] Desi Quinonez DO [address] [facility] [place] [address] Health Maintenance Due Date Last Done Comments [...] this encounter Medical Devices Implanted Type Area Recruiting Assistant Device Identifier Shelf Expiration Date Model / Serial / Lot Alloderm 2x4cm [id number] ( 8 Units ) - [id number] Implanted:Qty : 8 on 01/08/2017 by Wei Jurado MD at OR [facility] Tissue - Human N/A: Abdomen [employer] ROXANA 09/11/2018 [id number] / / [id number] documented as of this encounter Visit Diagnoses Diagnosis Panic attacks Panic disorder without agoraphobia TAWANA (generalized anxiety disorder) Generalized anxiety disorder documented in this encounter Advance Directives * [...] and were consensually agreed upon. Care Teams Process Control Tech Relationship Specialty Start Date End Date Desi Quinonez DO [address] [place] [address] PCP - General Family Medicine 04/07/24 documented as of this encounter
--- OUTSIDE RECORDS SUMMARY | 2024-09-03 02:53 | External Medical Summary | Summary of Care ---
Author Name Unknown Organization [facility] Address [address] [facility] [address] Phone [phone] Care Team Providers Care Stave Hewer Name Role Phone DesmondBruce roy Primary Care Provider [phone] Reason for Visit * Reason Onset Date Comments Re-Check Medication Administration 06/03/2024 Flu an d/or Pneumo Inj Encounter Details Date Type Department Care Team (Late st Contact Info) Description 06/03/2024 5:20 PM EST [facility] [address] [facility] [place] [address] Jannette Noyola PA-C [address] [facility] [place] [address] History of 2019 novel coronavirus disease (COVID-19)*; Need for prophylactic vaccination and inoculation against influenza Allergies Active Allergy Reactions Criticality Noted Date Comments Lisinopril Cough 11/06/2011 Procaine Edema face/lips/tongue,Itc maxim High 11/26/2016 Penicillins Hives High 08/06/1999 Hives down throat Sulfa Antibiotics Hives High 08/06/1999 Hives down throat Hydrocodone-Acetaminoph en Nausea/vomiting Low 08/23/2010 documented as of this encounter (statuses as of 06/03/2024) Medications ASPIRIN EC 81 MG PO TBECIndications:Cor onary atherosclerosis of [place] coronary artery,S/P coronary artery stent placement 1 [...] placement,Acute non-ST elevation myocardial infarction (NSTEMI) (FORMER[facility]) One tablet under tongue if needed for [...] Tablet 4 Active Vitamin D3 1.25 MG (09349 UT) Oral Capsule TAKE 1 CAPSULE BY MOUTH ONE TIME PER WEEK 12 Capsule 1 4 Active LORazepam 0.5 MG Oral Tablet (Ativan)Indications :Panic attacks,TAWANA (generalized anxiety disorder) TAKE 1 TABLET BY MOUTH TWICE A DAY NEEDED FOR ANXIETY 60 Tablet 2 4 Active documented as of this encounter (statuses as of 06/03/2024) Active Problems Problem Noted Date Diagnosed Date [...] LDL below 100 11/06/2011 Coronary atherosclerosis of [place] coronary yolanda ry 08/26/2011 S/P coronary artery stent placement 07/08/2011 Overview (07/18/2011): RCA and circumflex Allergic rhinitis Adjustment disorder with depressed mood documented as of this encounter (statuses as of 06/03/2024) Resolved Problems Problem Noted Date Diagnosed Date [...] as of this encounter (statuses as of 06/03/2024) Immunizations Name Administration Dates Next Due COVID-19 [...] Answer Date Recorded PHQ Adult Total Score 2 06/03/2024 Comments No Sex and Gender Information Value [...] Sign Reading Time Taken Comments Blood Pressure 112/78 06/03/2024 5:41 PM EST man ual Pulse 84 06/03/2024 5:41 PM EST Temperature 36.8 C (98.2 F) 06/03/2024 5:41 PM ES T Respiratory Rate 16 06/03/2024 5:41 PM EST Oxygen Saturation 93% 06/03/2024 5:41 PM EST RA Inhaled Oxygen Concentration - - Weight 59.5 kg (131 lb 4 oz) 06/03/2024 5:41 PM EST Height 155.6 cm (5' 1.26") 06/03/2024 5:41 PM ES T Body Mass Index 24.59 06/03/2024 5:41 PM EST documented in this encounter Functional [...] Paz Colbert RN documented in this encounter Progress Notes * Jannette Noyola PA-C - 06/03/2024 6:33 PM EST Images from the original note were not included. History of Present Illness Paola Colbert is a 84 year old female that presents for Re-Check and Medication Administration (Flu and/or Pneumo Inj) Patient is an 84 year old female who presents for a follow up. She is feeling much better. Continues to have issues with her knees had fluid extracted. Is waiting to get injections next month. She denies chest pain, sob, palpitations, cough. Appetite improving Sleep good Urination/ bowel movements good Physical Exam Vitals: 06/03/24 1741 Temp: 98.2 F (36.8 C) Pulse: 84 Resp: 16 SpO2: 93% BP: 112/78 BMI: 24.59 BP Readings from Last 3 Encounters: 06/03/24 112/78 04/29/24 116/74 04/27/24 119/80 Wt Readings from Last 3 Encounters: 06/03/24 131 lb 4 oz (59.5 kg) 04/27/24 124 lb (56.2 kg) 01/09/24 130 lb 1.3 oz (59 kg) General: alert, healthy, no distress, well nourished, well developed, comfortable, and cooperative Head: Normocephalic, No masses, lesions, tenderness or abnormalities Eye Exam: PERRLA, extraocular movements intact, conjunctiva are pink and non- injected, sclera clear Neck: supple, no adenopathy, no bruits, thyroid normal size, non-tender, without nodularity Heart: regular rate & rhythm, no murmur, and no gallops Lungs: chest symmetric with normal AP diameter, no chest deformities noted, normal respiratory rateand rhythm, no chest wall tenderness, diaphragmatic excursion normal, lungs clear to auscultation Extremities: less than 2 second capillary refill, no joint deformities, effusion, or inflammation, no edema, no skin discoloration, no clubbing, no cyanosis I have reviewed the following results: None Assessment and Plan History of 2019 novel coronavirus disease (COVID-19) (Primary) Need for prophylactic vaccination and inoculation against influenza - INFLUENZA VAC., TRIVALENT, HD, PF, 65 AND ABOVE, 0.5 ML IM (FLUZONE HD) Wrap-Up Time: I spent a total of 30-39 minutes (exact time 33 mins) on the date of service in preparation, delivery, and documentation of the care provided to Paola Colbert excluding any time spent in the performance of separately billed services. * Kaylah Syed NA - 06/03/2024 5:52 PM EST PRE - ADMINISTRATION DOCUMENTATION Are you experiencing any cold symptoms or fever? No Have you had Guillain-[place] Syndrome (an illness that causes paralysis) within the last 6 weeks? No Have you had the flu shot in the past? YES Have you ever had a reaction to the flu shot? No RIKKI Conner, 06/03/2024 5:52 PM Immunization Administration Documentation Time Out Procedure Performed: Yes Patient Identified (Ask Name/Date of ): Yes Does the patient have a fever greater than 101 degrees today? No Patient allergic to latex? No VFC Stock: No Immunization(s) verified: Yes, Immunization Name: Flu, VIS Sheet(s) given: Yes Verified Side and Site: Yes Verified Shot(s) with Parent(s)/Patient: Yes documented in this encounter Nursing Notes * Kaylah Syed NA - 06/03/2024 5:42 PM EST Paola Colbert presents for 1 month recheck. Patient states she had her left knee drained the other day. She is experiencing some knee discomfort due to extraneous movement earlier this week. Reports she is taking tylenol for the pain with somerelief. Reports knee ache and burning sensation bilaterally worse in the left knee at this time. Rates the left knee 8/10 ache and 6-7/10 for the right knee. Reports her knees don't bother her when she's resting them. Medications & HM reviewed. documented in this encounter Plan of Treatment Upcoming Encounters Date Type Department Care Team (Late st Contact Info) Description 07/27/2024 1:00 PM EST Office Visit Family Practice [facility] [place] [address] [facility] [place] [address] Bruce Sheridan DO [address] [facility] [place] [address] Health Maintenance Due Date Last Done Comments Adult Wellness Visit 06/21/2022 06/21/2021 COVID-19 Vaccine ( season) 2024 02/05/2023, 05/23/2021, 09/28/2020, Additional history exists DXA Scan 05/24/2025 05/24/2020, 10/12, 09/26/2011, Additional history exists Depression Monitoring 06/03/2025 06/03/2024 DTap/Tdap Vaccines (3 - Td or Tdap) [...] this encounter Medical Devices Implanted Type Area Environmental Manager Device Identifier Shelf Expiration Date Model / Serial / Lot Alloderm 2x4cm [id number] ( 8 Units ) - [id number] Implanted:Qty : 8 on 01/08/2017 by Wei Jurado MD at OR [facility] [place] Tissue - Human N/A: Abdomen [employer] ROXANA 09/11/2018 [id number] / / [id number] documented as of this encounter Visit Diagnoses Diagnosis History of 2019 novel coronavirus disease (COVID-19)- Primary Need for prophylactic vaccination and inoculation against influenza documented in this encounter Advance Directives * [...] and were consensually agreed upon. Care Teams Stave Hewer Relationship Specialty Start Date End Date Bruce Sheridan DO [address] [place] [address] PCP - General Family Medicine 04/07/24 documented as of this encounter
--- OUTSIDE RECORDS SUMMARY | 2024-09-03 02:53 | External Medical Summary | Summary of Care ---
Author Name Unknown Organization [facility] Address [address] [place] [address] Phone [phone] Care Team Providers Care Residential Plumber Name Role Phone Bruce Sheridan DO Primary Care Provider [phone] Reason for Referral * Evaluate & Treat - Unlimited Visits (Within 30 days (routine)) - Authorized Specialty Diagnoses / Procedures Referred By Adam cabrera Referred To Contact SECURITIES DEALER - Urogynecology / Gynecology Urology Diagnoses Incontinence in female Bruce Sheridan DO [address] [place] [address] Phone: tel: fax: Referral ID Status Reason Start Date Expiration Date Visits Requested Visits Authorized [id number] Authorized Specialty Services Required 4 [phone] Question Answer Referral Priority Within 30 days (routine) Where should this appointment be scheduled? [facility] What condition is the patient being referred for? Urinary Incontinence/Overactive Bladder Reason for Visit * Reason Comments Adult Annual Wellness Visit, Subsequent Visit Encounter Details Date Type Department Care Team (Late st Contact Info) Description 06/08/2024 3:00 PM EST Nurse Only Ancillary State Brian Barroso [address] [place] [address] Margie Nurse Annual Wellness Scenery [address] [place] [address] Adult Annual Wellness Visit, Subsequent Visit Allergies Active Allergy Reactions Criticality Noted Date Comments Lisinopril Cough 11/06/2011 Procaine Edema face/lips/tongue,Itc maxim High 11/26/2016 Penicillins Hives High 08/06/1999 Hives down throat Sulfa Antibiotics Hives High 08/06/1999 Hives down throat Hydrocodone-Acetaminoph en Nausea/vomiting Low 08/23/2010 documented as of this encounter (statuses as of 06/08/2024) Medications ASPIRIN EC 81 MG PO TBECIndications:Cor onary atherosclerosis of [place] coronary artery,S/P coronary artery stent placement 1 [...] non-ST elevation myocardial infarction (NSTEMI) ([facility]) One tablet under tongue if needed [...] Tablet 4 Active Vitamin D3 1.25 MG (23052 UT) Oral Capsule TAKE 1 CAPSULE BY MOUTH ONE TIME PER WEEK 12 Capsule 1 4 Active LORazepam 0.5 MG Oral Tablet (Ativan)Indications :Panic attacks,TAWANA (generalized anxiety disorder) TAKE 1 TABLET BY MOUTH TWICE A DAY NEEDED FOR ANXIETY 60 Tablet 2 4 Active documented as of this encounter (statuses as of 06/08/2024) Active Problems Problem Noted Date Diagnosed Date Recurrent major depressive disorder, in partial remission 10/22/2022 Major depressive disorder, recurrent, unspecifie d 10/24/2020 Inflammation of right sacroiliac joint 9 Sacroiliitis 09/07/2018 Gastroesophageal reflux disease without esophagi tis 09/07/2018 TAWANA (generalized anxiety disorder) 09/07/2018 S/P laparoscopic fundoplication 01/09/2017 S/P repair of paraesophageal hernia 01/09/2017 History of NH (myocardial infarction) 10/18/2016 History of colon polyps [...] LDL below 100 11/06/2011 Coronary atherosclerosis of [place] coronary yolanda ry 08/26/2011 S/P coronary artery stent placement 07/08/2011 Overview (07/18/2011): RCA and circumflex Allergic rhinitis Adjustment disorder with depressed mood documented as of this encounter (statuses as of 06/08/2024) Resolved Problems Problem Noted Date Diagnosed Date [...] Malaise and fatigue 08/26/2011 02/06/20 17 Acute NH 07/08/2011 10/18/2016 Closed fracture of part of u pper end of humerus 08/26/2010 02/05/2017 Benign neoplasm of cerebral meninges 05/14/2009 05/27/2023 Overview (06/05/2009): asymptomatic seen on MRI Uterine leiomyoma 09/07/2018 Need for prophylactic hormon e replacement therapy (postmenopausal) 09/07/2018 Dermatitis 02/05/2017 documented as of this encounter (statuses as of 06/08/2024) Immunizations Name Administration Dates Next Due COVID-19 [...] Sign Reading Time Taken Comments Blood Pressure 118/74 06/08/2024 3:14 PM EST Pulse 92 06/08/2024 3:14 PM EST Temperature 36.7 C (98 F) 06/08/2024 3:14 PM EST Respiratory Rate - - Oxygen Saturation 96% 06/08/2024 3:14 PM EST Inhaled Oxygen Concentration - - Weight 59.4 kg (131 lb) 06/08/2024 3:14 PM EST Height 155.6 cm (5' 1.26") 06/08/2024 3:14 PM ES T Body Mass Index 24.54 06/08/2024 3:14 PM EST documented in this [...] of Assessment Author No 01/08/2017 8:40 PM EDPaz Barnes RN documented as of this encounter Mental Status * Because of a physical, mental, or emotional condition, do you have serious difficulty concentrating, remembering, or making decisions? (5 years old or older) Answer Entry Date Author No 01/08/2017 8:40 PM Paz Marquis RN documented in this encounter Patient Instructions * Patient Instructions* Keisha Beasley RN - 06/08/2024 3:02 PM EST Hi Ms. Colbert, As your primary care physician, I know that regular visits with my patients who have several chronic conditions can go a long way in helping you stay healthy. Many times, the clinic team and I are in touch with you and/or other care team members between office visits to adjust medications, discuss any changes in your health, and review our care plan to make sure it is still meeting your needs. I am dedicated to helping you take a more active role in your overall care. It is important that there are resources available to you, so I created a personalized plan of care with a Health Calendar for you, which is included on the next page of this letter. Below is a list that summarizes your electronic health record: Health Maintenance Due: Health Maintenance Due Topic Date Due Adult Wellness Visit 06/21/2022 COVID-19 Vaccine ( season) 2024 Current Medication List: (as of Visit date not found (in office), Visit date not found (telemedicine) ) Current Outpatient Medications Medication Sig Dispense Refill ASPIRIN EC 81 MG PO TBEC 1 TABLET DAILY 30 Tab 11 Betamethasone Dipropionate 0.05 % External Lotion (Diprosone) Apply topically to affected area 2 times a day. Apply to scalp as needed for flares. Taper frequency with improvement. 60 mL 3 Nitroglycerin 0.4 MG Sublingual Tablet Sublingual (Nitrostat) One tablet under tongue if neededfor chest pain. May repeat 3 times. If chest pain continues, call [phone] Tablet 11 Famotidine 40 MG Oral Tablet (Pepcid) Take 1 Tablet by mouth in the morning. 30 Tablet 11 Allopurinol 100 MG Oral Tablet (Zyloprim) Take 1 Tablet by mouth in the morning. 30 Tablet 11 B-12-SL 1000 MCG Sublingual Tablet Sublingual (Cyanocobalamin) Place 1,000 mcg under the tonguein the morning. 90 Tablet 3 Ondansetron HCl 4 MG Oral Tablet Take 1 Tablet by mouth every 6 hours as needed for Nausea. 10 Tablet 0 Vitamin D3 1.25 MG (73088 UT) Oral Capsule TAKE 1 CAPSULE BY MOUTH ONE TIME PER WEEK 12 Capsule1 LORazepam 0.5 MG Oral Tablet (Ativan) TAKE 1 TABLET BY MOUTH TWICE A DAY NEEDED FOR ANXIETY 60 Tablet 2 No current facility-administered medications for this visit. Current List of Allergies: (as of Visit date not found (in office), Visit date not found (telemedicine) ) Review of patient's allergies indicates: Allergen Reactions Novocain [Procaine] Edema face/lips/tongue and Itching Penicillins Hives Hives down throat Sulfa Antibiotics Hives Hives down throat Lisinopril Cough Vicodin [Hydrocodone-Acetaminophen] Nausea/vomiting Most Recent Lab Results: Results for orders placed or performed in visit on 12/30/23 TSH WITH FREE T4 IF INDICATED Result Value Ref Range TSH 1.61 0.27 - 4.20 uIU/mL 25-HYDROXY VITAMIN D Result Value Ref Range 25-Hydroxy Vitamin D 12 (L) >19 ng/mL VITAMIN B12 Result Value Ref Range Vitamin B12 231 (L) 232 - 1,245 pg/mL ANEMIA CBC Result Value Ref Range WBC 11.19 (H) 4.00 - 10.80 K/uL RBC 5.02 3.85 - 5.15 M/uL HGB 12.1 12.0 - 15.3 g/dL HCT 41.1 36.0 - 45.2 % MCV 81.9 81.5 - 97.5 fL MCH 24.1 27.0 - 34.0 pg MCHC 29.4 32.0 - 36.0 g/dL RDW 19.0 11.5 - 15.5 % PLT 664 (H) 140 - 400 K/uL MPV 9.3 6.6 - 11.1 fL nRBCs 0 <=0 /100 WBCs DIFFERENTIAL, AUTOMATED Result Value Ref Range WBC 11.19 (H) 4.00 - 10.80 K/uL Neutrophils % 65.7 40.0 - 75.0 % Lymphocytes % 25.3 18.0 - 42.0 % Monocytes % 6.7 1.0 - 11.0 % Eosinophils % 1.2 0.0 - 6.0 % Basophils % 0.7 0.0 - 2.0 % Immature Granulocytes % 0.4 0.0 - 2.0 % Absolute Neutrophils 7.35 1.80 - 7.70 K/uL Absolute Lymphocytes 2.83 1.00 - 4.80 K/ul Absolute Monocytes 0.75 0.00 - 1.10 K/uL Absolute Eosinophils 0.13 0.00 - 0.70 K/uL Absolute Basophils 0.08 0.00 - 0.20 K/uL Absolute Immature Granulocytes 0.05 0.00 - 0.20 K/uL Sincerely, Bruce Sheridan, DO 06/08/2024 [employer] Calendar (as of Visit date not found (in office), Visit date not found (telemedicine) ) Care needs Care needs Last completed Due next Adult Wellness Visit 06/21/2021 06/21/2022 COVID-19 Vaccine ( season) 2023 03/14/2024 Bone Density 05/24/2020 05/24/2025 Diphtheria, tetanus & pertussis vaccines (3 - Td or Tdap) 12/30/2023 12/29/2033 As you look over the recommended services, be sure to check with your insurance company to determine what's covered. [email or web address] is a great tool that helps you review your medical record online, including test results, doctor notes and your health summary. You can also schedule appointments with me and other members of your care team, request prescription refills and ask for advice related to your medical conditions at [email or web address]. documented in this encounter Progress Notes * Keisha Beasley, RN - 06/08/2024 3:01 PM EST AD8 Dementia Screening Interview Person answering questions: patient Remember, "Yes, a change" indicates that there has been a change in the last several years caused by cognitive (thinking and memory) problems 1. Problems with judgement (eg: problems making decisions, bad financial decisions, problems with thinking). No (0) 2. Less interest in hobbies/activities. No (0) 3. Repeats the same things over and over (questions, stories, or statements). No (0) 4. Trouble learning how to use a tool, appliance, or gadget (eg: VCR, computer, microwave, remote control). No (0) 5. Forgets correct month or year. No (0) 6. Trouble handling complicated financial affairs (eg: balancing checkbook, income taxes, paying bills). No (0) 7. Trouble remembering appointments. No (0) 8. Daily problems with thinking and/or memory. No (0) TOTAL AD8: 0 - AD8 Dementia Screening Score The final score is a sum of the number items marked "Yes, A Change". 0 - 1: Normal cognition; 2 or greater: Cognitive impairments is likely to be present - further testing required Adult Annual Wellness Visit: Paola Colbert is a 84 year old female who presents for an Adult Annual Wellness Visit. Depression Screening: Did the patient complete the screening questionnaire for Depression? Yes Is the patient's total score for Depression 15 or greater? No, no further intervention needed, unless requested by patient. Did the patient answer positively to the suicide question? No, no further intervention needed, unless requested by patient. In general, compared to other people your age, what would you say that your health is? Good. Would be better if not for bilateral knee pain issues. Bakers cyst. Ht Readings from Last 1 Encounters: 06/08/24 5' 1.26" (1.556 m) Wt Readings from Last 1 Encounters: 06/08/24 131 lb (59.4 kg) Body Mass Index: BMI Less than 30 Body mass index is 24.54 kg/m. BP Readings from Last 1 Encounters: 06/08/24 118/74 Medical/Surgical/Family History Reviewed: Yes Past Medical History: Diagnosis Date Acute NH (HCC) 07/08/2011 Adjustment disorder with depressed mood Allergic rhinitis Benign neoplasm of cerebral meninges (HCC) 05/2009 asymptomatic seen on MRI Dermatitis Mass of hepatic flexure of colon 12/30/13 Need for prophylactic hormone replacement therapy (postmenopausal) S/P coronary artery stent placement 07/08/2011 RCA and circumflex, 3 KAYY placed [facility] Uterine leiomyoma Past Surgical History: Procedure Laterality Date COLONOSCOPY W/ BIOPSY (RECTUM) 05/08/09 diverticulosis-biopsies, mild inflammation COLONOSCOPY, DIAGNOSTIC (RECTUM) 12/30/2013 Invasive adenocarcinoma-hepatic flexure, diverticulosis/COLONOSCOPY FLEXIBLE PROXIMAL DIAGNOSTIC performed by Talon Esparza MD at ENDOSCOPY [facility] COLONOSCOPY, DIAGNOSTIC (RECTUM) 11/09/2014 diverticulosis, repeat 1 yr/COLONOSCOPY FLEXIBLE PROXIMAL DIAGNOSTIC performed by Talon Esparza MD at ENDOSCOPY [facility] COLONOSCOPY, DIAGNOSTIC (RECTUM) 12/07/2015 hyperplastic polyp, diverticulosis, repeat 3 yrs/COLONOSCOPY FLEXIBLE PROXIMAL DIAGNOSTIC performedby Talon Esparza MD at ENDOSCOPY [facility] COLONOSCOPY, DIAGNOSTIC (RECTUM) 10/14/2018 COLONOSCOPY FLEXIBLE PROXIMAL DIAGNOSTIC performed by Quin Bains MD at ENDOSCOPY [facility] COLORECTAL CANCER SCREEN; COLON 12/28/01 diverticulitis EGD, FLEXIBLE, DIAGNOSTIC 11/24/2013 normal bx, HH w/ multiple [place]wn ulcers/done@ [facility] EGD, FLEXIBLE, DIAGNOSTIC 08/28/2016 Large hiatus hernia/ESOPHAGOGASTRODUODENOSCOPY (EGD), FLEXIBLE, TRANSORAL, DIAGNOSTIC performed by Talon Esparza MD at ENDOSCOPY [facility] EGD, FLEXIBLE, DIAGNOSTIC 06/19/2016 [place]wn ulcers, lg HH/inpt [facility] EGD, FLEXIBLE, DIAGNOSTIC N/A 01/08/2017 ESOPHAGOGASTRODUODENOSCOPY (EGD), FLEXIBLE, TRANSORAL, DIAGNOSTIC performed by Wei Jurado MD at [facility] EGD, FLEXIBLE, W/BIOPSY 07/22/2008 chronic gastritis, ?celiac dx, lab neg LAPAROSCOPIC COLECTOMY PARTIAL WITH ANASTOMOSIS 01/11/14 01/11/2014 Laparoscopic hand assisted right hemicolectomy 01/11/14 Dr. Brewer at [facility] Staff Anesthetist Harley Bledsoe PA-C PARAESOPHAGEAL HERNIA REPAIR, LAP W/ MESH N/A 01/08/2017 LAPAROSCOPIC PARAESOPHAGEAL HERNIA REPAIR W/MESH performed by Wei Jurado MD at [facility] PARAESOPHAGEAL HERNIA REPAIR, LAP W/O MESH N/A 01/08/2017 LAPAROSCOPIC PARAESOPHAGEAL HERNIA REPAIR WO/ MESH performed by Wei Jurado MD at [facility] PLACE INTRACORONARY STENT, ADD'L VS 07/08/11 two KAYY to RCA, one KAYY to circumflex PUNCTURE DRAINAGE BREAST CYST Breast Biopsy REMOVAL OF OVARY/OVIDUCT(S) Ovary/Tube(S) Removal tublar REMOVE PILONIDAL CYST, SIMPLE SACROILIAC JOINT INJECT W/GUIDANCE 05/25/2018 INJECTION SACROILIAC JOINT performed by Jeb Baker, DO at [facility] SACROILIAC JOINT INJECT W/GUIDANCE 02/25/2019 INJECTION SACROILIAC JOINT performed by Jeb Baker, DO at [facility] VAGINAL DELIVERY ONLY Vaginal Delivery VAGINAL DELIVERY ONLY Vaginal Delivery Family History Problem Relation Name Age of Onset Cancer Mother ovarian Heart Disorder Father rheumatic heart disease No Past Hx Daughter No Past Hx Son Has patient ever had cancer? History of cancer, type: breast. Was removed with lumpectomy Social History Tobacco Use Smoking status: Former Current packs/day: 0.00 Average packs/day: 0.5 packs/day for 25.0 years (12.5 ttl pk-yrs) Types: Cigarettes Start date: 07/14/1987 Quit date: 07/14/2012 Years since quittin.9 Smokeless tobacco: Never Tobacco comments: social smoker/1 pk / wk Substance Use Topics Alcohol use: Yes Comment: rare glass of wine Vaping/E-Cigarette Use Vaping/E-Cigarette Use Never User Vaping/E-Cigarette Substances Vaping/E-Cigarette Devices Tobacco/Alcohol screening completed today? Yes Hospital Care: Admissions (within the last year): Hospital, Location: [facility], [facility] ER within 30 days: No Does the patient have an Advance Directives/Living Will? Yes attorney recruiter has copy, daughter Stacy is healthcare hospital sales representative Last Physical Exam: Last physical exam: 06/03 Does patient see primary provider regularly? Yes Does patient see other providers? Yes, Specialist Patient Care Team updated? Yes Review of patient's allergies indicates: Allergen Reactions Novocain [Procaine] Edema face/lips/tongue and Itching Penicillins Hives Hives down throat Sulfa Antibiotics Hives Hives down throat Lisinopril Cough Vicodin [Hydrocodone-Acetaminophen] Nausea/vomiting Immunization History Administered Date(s) Administered COVID-19 mRNA, LNP-s, No Preserve, 2-Dose Series (Moderna) 08/31/2020, 09/28/2020 COVID-19, mRNA, LNP-s, PF, Booster, 100mcg/0.5mg (Moderna) 05/23/2021 Covid-19, Mrna, Lnp-s, Pf, Bivalent, 50 Mcg, IM, 12 yrs and above (Moderna) 02/05/2023 H1N1 2009 Influenza, IM 09/11/2009 Pneumococcal Conjugate Vacc, 13 Valent (Prevnar) 06/06/2014 Pneumococcal Polysaccharide PPV23 (Pneumovax) 03/25/2007 Seasonal Influenza Vac., MDV, IM, 0.5 mL (Fluzone) 09/01/2002, 04/14/2007, 05/02/2009, 05/22/2010, 2011, 03/30/2012, 04/01/2013, 05/05/2014 Seasonal Influenza, High Dose, Trivalent, PF, IM (Fluzone HD) 04/22/2017, 06/03/2024 Seasonal Influenza, PF, 6 M & above, IM , (FluLaval or Fluzone) 04/13/2018, 04/14/2020 Seasonal Influenza, Quadrivalent Hd (Fluzone Hd) 06/24/2023 Seasonal Influenza, Quadrivalent, No Preserve, IM 04/19/2015, 05/24/2016 Seasonal Influenza, Trivalent, Adjuvanted, 65+ YRS, PF, (Fluad) 05/03/2019 TD - Tetanus/Diptheria (ADULT) 09/16/2003, 09/28/2003 TDAP (age 10 and older)(Boostrix) 04/01/2013, 12/30/2023 Varicella Zoster Vaccine (Adult) 06/14/2013 Zoster Vaccine Recombinant (Shingrix) 10/25/2020, 01/25/2021 Current Outpatient Medications Medication Sig Dispense Refill ASPIRIN EC 81 MG PO TBEC 1 TABLET DAILY 30 Tab 11 Betamethasone Dipropionate 0.05 % External Lotion (Diprosone) Apply topically to affected area 2 times a day. Apply to scalp as needed for flares. Taper frequency with improvement. 60 mL 3 Famotidine 40 MG Oral Tablet (Pepcid) Take 1 Tablet by mouth in the morning. 30 Tablet 11 Allopurinol 100 MG Oral Tablet (Zyloprim) Take 1 Tablet by mouth in the morning. 30 Tablet 11 B-12-SL 1000 MCG Sublingual Tablet Sublingual (Cyanocobalamin) Place 1,000 mcg under the tongue in the morning. 90 Tablet 3 Vitamin D3 1.25 MG (70311 UT) Oral Capsule TAKE 1 CAPSULE BY MOUTH ONE TIME PER WEEK 12 Capsule 1 LORazepam 0.5 MG Oral Tablet (Ativan) TAKE 1 TABLET BY MOUTH TWICE A DAY NEEDED FOR ANXIETY 60 Tablet 2 Nitroglycerin 0.4 MG Sublingual Tablet Sublingual (Nitrostat) One tablet under tongue if needed forchest pain. May repeat 3 times. If chest pain continues, call 911 25 Tablet 11 Ondansetron HCl 4 MG Oral Tablet Take 1 Tablet by mouth every 6 hours as needed for Nausea. 10 Tablet 0 No current facility-administered medications for this visit. Patient Active Problem List Diagnosis Allergic rhinitis Adjustment disorder with depressed mood S/P coronary artery stent placement Coronary atherosclerosis of [place] coronary artery Dyslipidemia, goal LDL below 100 ACEI/ARB contraindicated History of colon polyps History of NH (myocardial infarction) S/P laparoscopic fundoplication S/P repair of paraesophageal hernia Sacroiliitis (HCC) Gastroesophageal reflux disease without esophagitis TAWANA (generalized anxiety disorder) Inflammation of right sacroiliac joint (HCC) Major depressive disorder, recurrent, unspecified (HCC) Recurrent major depressive disorder, in partial remission (HCC) Medication Compliance: Patient is able to obtain all of her medications? Yes Patient takes medications as prescribed? Yes Patient manages own medications: Yes Patient uses a pill box? No Dental Exam: Yes: Every 6 Months Eye Screening: No states "needs to go see one" Are you having trouble with hearing? No Do you use an assistive device to help your hearing? No Exercise Screening: exercises 1 time per week with PT, does a lot of walking Nutrition Assessment: Eats a balanced diet and not a big eater Pain Screening: Are you having any pain? Yes bilateral knee pain, is working with U for knee injections, wondering if surgery will be needed. Pain with activity, it is improved with rest. Sleep Screening Tool 'STOP': Do you snore? No Do you feel fatigued during the day? No Do you wake up feeling like you haven't slept? No Have you been told you stop breathing at night? No Do you gasp for air or choke while sleeping? No Have you been told you have Sleep Apnea? No Do you have high blood pressure or are on medication(s) to control high blood pressure? No SCORE: If you check YES to two or more questions, make a referral for Obstructive Sleep Apnea Patient and Caregiver Support System: Patient lives alone Means of Transportation: Drives. Not a concern. Patient lives in apartment with 2 stairs. Basement stairs, does not navigate at this time Community Resources: Not Applicable Functional Status and ADL Skills: Has patient ever had an amputation? No Functional Assessment: 81- Normal activity with effort: some symptoms of disease Ambulation: Patient ambulates without assistive device. Walker if outdoors Dressing: Gets clothes and dresses without any assistance: Independent Able to move freely in chair or bed including turning over: Independent Repositioning (bed or chair): Not applicable Transfers: Independent Toileting: Goes to bathroom, uses toilet, arranges clothes and returns without any assistance: Independent Toileting: continent of bowel and incontinent of bladder Feeding: Self Bathing: Self; walk in shower Requires none assistance with ADLs. Instrumental ADL's: Shopping: Independent Housekeeping: Independent Handling Finances: Independent DME Vendor Name: Not Applicable Fall Risk Assessment: Can the patient demonstrate that she can stand from a sitting position? Yes Has the patient had a fall within the last 6 months? No Does the patient have a problem with her gait or balance? Yes Does the patient take 4 or more prescription medicines? No Does the patient use sedatives or narcotics? Yes Fall Risk Factors Present: Uses sedatives or narcotics Uses assistive devices Older than age 70 Dgd-Im-ycb-Go Test: Time began at 1500. Patient stood from sitting position and walked approximately 10 feet, returned and sat down. Total time for cuu-eo-itl-go test was 12 seconds. Ykw-Mb-zmc-Go Test completed? Yes Gender Specific Preventative Plan: Health Maintenance Topic Date Due Adult Wellness Visit 06/21/2022 COVID-19 Vaccine ( season) 2024 DXA Scan 05/24/2025 Depression Monitoring 06/08/2025 DTap/Tdap Vaccines (3 - Td or Tdap) 12/29/2033 Influenza Vaccine (FLU shot) Completed Zoster Vaccines Completed Pneumococcal Vaccine: 65+ Years Completed Hepatitis B Vaccine Aged Out MENINGOCOCCAL (MENACTRA/MENVEO) Aged Out HPV (Gardasil) Vaccine Aged Out Colonoscopy Discontinued Follow Up/ Referrals/Handouts: Depression screening - completed Functional assessment - independent with ADLs and iADLs. Daughter lives nearby and helps with laundry in the basement. Falls Risk screening - completed, handouts provided Exercise screening - provide exercise handouts Nutrition assessment -. Handouts Provided Pain screening - no new concerns Incontinence screening - Referral for uro/leader writer Routine general medical examination at a health care facility (Primary) Incontinence in female - UROGYNECOLOGY CLINIC REFERRAL OP (FEMALE ONLY) Dyslipidemia, goal LDL below 100 Lipid Panel Results: Results for orders placed or performed in visit on 08/24/08 LIPID PANEL Result Value Ref Range HOURS FASTING 12 hours Triglycerides 76 60 - 245 mg/dL Cholesterol 175 <200 mg/dL HDL Cholesterol 62 (H) 40 - 59 mg/dL Cholesterol-HDL Ratio 2.8 LDL Cholesterol 98 0 - 100 mg/dL Results for orders placed or performed in visit on 10/03/22 LIPID PANEL WITH DIRECT LDL IF TG IS HIGH Result Value Ref Range Triglycerides 170 <=174 mg/dL Cholesterol 216 (H) <200 mg/dL HDL Cholesterol 64 >49 mg/dL Non-HDL Cholesterol 152 <=159 mg/dL LDL Cholesterol 118 <=129 mg/dL Follow Up: Return in 1 year (on 06/08/2025) for 12 month Subsequent Adult Wellness Visit. | For: 12month Subsequent Adult Wellness Visit | Check-out note: 12 month Subsequent Adult Wellness Visit Would patient like to schedule next AWV visit? Yes, will await until next year to schedule. Keisha Beasley RN documented in this encounter Miscellaneous Notes * Pt Handout (on AVS) - Keisha Beasley RN - 06/08/2024 3:41 PM EST [id number] Fall Prevention Falls often take place due to slipping, tripping, or losing your balance. Millions of people fall every year and injure themselves. Among older adults in the [place] falls are the most common cause of traumatic brain injuries. Every 20 minutes, an older adult dies from a fall. Here are ways to reduceyour risk of falling again: Think about your fall. Was there anything that caused your fall that can be fixed, removed, or replaced? Make your home safe by keeping walkways clear of objects you may trip over, such as electrical cords. Use nonslip pads under rugs. Don't use area rugs or small throw rugs. Use nonslip mats in bathtubs and showers. Hang grab rails by the toilet and inside and outside the shower. Install handrails and lights on staircases. The handrails should be on both sides of the stairs. Use night lights. Don't walk in poorly lit areas. Don't stand on chairs or wobbly ladders. Use care when reaching overhead or looking up. This position can cause a loss of balance. Be sure your shoes fit well, are in good condition, and have nonslip bottoms. Wear shoes both inside and outside of your home. Don't go barefoot or wear slippers. Be cautious when going up and down stairs, curbs, and when walking on uneven sidewalks. If your balance is poor, consider using a cane or walker. Talk with your healthcare provider about having a balance assessment. If your fall was related to alcohol use, stop or limit alcohol intake. Ask your provider for help if you think you may overuse alcohol and can't stop. If your fall was related to use of sleeping medicines, talk with your provider about this. You may need to reduce your dosage at bedtime if you wake up during the night to go to the bathroom. To reduce the need for nighttime bathroom trips: o Don't drink fluids for several hours before going to bed o Empty your bladder before going to bed o Men can keep a urinal at the bedside Stay as active as you can. Balance, flexibility, strength, and endurance all come from exercise.They all play a role in preventing falls. Ask your provider which types of activity are right for you. Try to do some type of exercise every day. Get your eyes checked once a year or more often if your vision changes If you have pets, know where they are before you stand up or walk so you don't trip over them. Go over all your medicines with a pharmacist or other provider. This is to see if any of them could make you more likely to fall. Have this type of medicine review at least once every year. If your provider advises a new medicine, ask if the side effects will affect your balance. Don't move quickly from one position to another. For instance, don't stand up fast from sitting.This can cause dizziness and may lead to a fall. Sit down when putting on pants, socks, and shoes. This will make you less likely to lose your balance and fall. Always let your provider know if you have fallen since your last visit. Contact your provider right away if you're having balance problems or falling more often. Last Reviewed Date: 2021 00:00:00 [id number] [employer]. All rights reserved. This information is not intended as a substitute for professional medical care. Always follow your healthcare professional's instructions. documented in this encounter Plan of Treatment Upcoming Encounters Date Type Department Care Team (Late st Contact Info) Description 07/27/2024 1:00 PM EST Office Visit Family Practice [facility] [address] [facility] [place] [address] Bruce Sheridan, [address] [facility] [place] [address] 07/28/2024 2:30 PM EST Office Visit [facility]cology [facility] [address] [facility] [place] [address] Martin Soto MD [address] [place] [address] Scheduled Referrals Name Type Priority Associated Diagnoses Order Schedule UROGYNECOLOGY CLINIC REFERRAL OP (FEMALE ONLY) Referral Within 30 days (routine) Incontinence in female Ordered: 06/08/2024 Health Maintenance Due Date Last Done Comments COVID-19 Vaccine ( season) 2024 02/05/2023, 05/23/2021, 09/28/2020, Additional history exists DXA Scan 05/24/2025 05/24/2020, 10/12, 09/26/2011, Additional history exists Adult Wellness Visit 06/08/2025 06/08/2024, 06/21/20 21 Depression Monitoring 06/08/2025 06/08/2024, 024 DTap/Tdap Vaccines (3 - Td or Tdap) 12/29/2033 12/30/2023, 04/01/2013, 09/28/2003, Additional history exists Pneumococcal Vaccine: 65+ Years Completed 06/06/2014, 03/25/2007 Colonoscopy Discontinued 10/14/2018, 04/0 09/2018, 12/07/2015, Additional history exists Zoster Vaccines [...] this encounter Medical Devices Implanted Type Area Certifier Device Identifier Shelf Expiration Date Model / Serial / Lot Alloderm 2x4cm [id number] ( 8 Units ) - [id number] Implanted:Qty : 8 on 01/08/2017 by Wei Jurado MD at OR [facility] Tissue - Human N/A: Abdomen [employer] 09/11/2018 [id number] / / [id number] documented as of this encounter Visit Diagnoses Diagnosis Routine general medical examination at a health care facility- Primary Incontinence in female Dyslipidemia, goal LDL below 100 Other and unspecified hyperlipidemia documented in this encounter Advance Directives * [...] and were consensually agreed upon. Care Teams Residential Plumber Relationship Specialty Start Date End Date Bruce Sheridan DO [address] [place] [address] PCP - General Family Medicine 04/07/24 documented as of this encounter
--- OUTSIDE RECORDS SUMMARY | 2024-09-03 02:53 | External Medical Summary | Continuity of Care Document ---
Author Name Unknown Organization [facility] [address] [place], [place] [address]A Address [address] [place], [place] [id number] Care Team Providers Care Associate Professor Of Biostatistics Name Role Phone Bruce Sheridan Primary Care Physician [phone] [id number] Date(s): 06/02/24 - 06/02/24 [facility] [address] [id number] [facility] Medicine [address] [facility] [address] [place] [address] Encounter Diagnosis Left knee pain(Discharge Diagnosis) - 06/02/24 Mayo cyst(Discharge Diagnosis) - 06/02/24 Discharge Disposition: Home or Self Care Attending Physician: MD Purcell Jesse Referring Physician: RADHA Patricia Madison Allergies, Adverse Reactions, Alerts Substance Criticality Severity Reaction Reaction Severity Status penicillin Unable to assess criticality Moderate Unsure of self Active sulfa drugs Unable to assess criticality Mild Unsure of self Active Terramycin Unable to assess criticality Mild Unsure of self Active Assessment and Plan Extracted from: Title:Follow Up Visit Author:MD Webster Daniel Date:06/02/24 1.Left knee pain 2.Mayo cyst Risks and benefits of the procedure were discussed. Patient would like to proceed with the injection, see procedure note below. After care and return precautions discussed. Patient encouraged to follow-up withher orthopedic teamregardingnext steps afterconservative managementfor her knee pain. She was encouraged to continue with PT, and then to continue home exercises for maintenance. Procedure note: Risks, benefits, indications, and alternatives of leftBaker Cyst US guided aspiration and injection were discussed. Consent was obtained per clinic protocol. Time out was performed using [facility] Protocol. Sterile technique was utilized with Chloraprep skin prep and sterile US gel. 1ml of 1% lidocaine was used for skin anesthesia. Using a long axis view of the popliteal space with in planeapproach, an 18 gauge needle was inserted into the popliteal cyst under direct US guidance. The cyst was successfully aspirated of3 ml of clear straw colored fluid. The patient tolerated the procedure well without complication. Injection site was cleaned and covered with a band-aid. Medications aspirin 81 mg oral delayed release tablet Start: 10/24/23 9:07:00 AM EDT, 1 tab, PO, Daily Start Date: 10/24/23 Status: Ordered Euflexxa 10 mg/mL intra-articular solution Start: 05/31/24 2:23:00 PM EST, 20 mg =, intra-articular, q7days, Disp# 12 mL, Refills: 0, B/L KNEEDJD M17.0, Note to Pharmacy: 6 syringes for B/L knees. Please ship to physician's office: [address] [place] [address], Pharmacy: [facility] Start Date: 05/31/24 Stop Date: 06/21/24 Status: Ordered Mental Status 06/02/24 Barriers to Learning one year None evide nt Mandatory Health Literacy Documentation Yes Health Literacy Communication Barriers N ever Primary Language Korean Problem List Condition Confirmation Course Effective Dates Status H ealth Status Informant Hx of myocardial infarction Confirmed Active Hypertension Confirmed Active Bilateral primary osteoarthritis of knee Confirmed Active Diagnosis Diagnosis Type Effective Dates Health Status Cl inical Service Informant Left knee pain Discharge Diagnosis 06/02/24 Non-Specified Mayo cyst Discharge Diagnosis 06/02/24 Non-Specified Social History Social History Type Response Smoking Status Never smoked cigaret davion Sex Female Sex Representation Female (finding) Ortho Outpt Note * DO Hensley Mehwish: MODIFY DO Hensley Mehwish: MODIFY Event Display: Ortho Outpt Note Authored Date: [id number] Chief Complaint L knee poss injection/aspiration Primary Care Provider DO Sheridan Shane D Referring Provider RADHA Patricia, Vicki Nesbittsy Filemon is an 84F who presents to sports medicine clinic for aspiration of Mayo's cyst. She notes 50% relief afterleft knee intra-articularsteroid injectiononOctober 2023.She does note somedecreased range of motionand pain in the posterior knee,for whichshe would likeanaspiration today. Objective Physical Exam Swellingappreciatedat anteriorleft kneesome tenderness to palpation of posterior knee. No erythema overproposedinjection site. Hip flexion and knee extension against gravity and resistance Sensation intactatleft knee Diagnostic Results A limited musculoskeletal US was performed of the leftposterior knee with attention to the popliteal space. Long and short axis views were obtained. A popliteal cyst that communicated with the joint was identified between the semimembranosus tendon and the medial head of the gastrocnemius. It measured approximately 4cm and had complex fluid within. With the use of Power Doppler, the poplitealartery was identified lateral and deep to the cyst. There were no vascular structures in the proposed injection path. Assessment/Plan 1.Left knee pain 2.Mayo cyst Risks and benefits of the procedure were discussed. Patient would like to proceed with the injection, see procedure note below. After care and return precautions discussed. Patient encouraged to follow-up withher orthopedic teamregardingnext steps afterconservative managementfor her knee pain. She was encouraged to continue with PT, and then to continue home exercises for maintenance. Procedure note: Risks, benefits, indications, and alternatives of leftBaker Cyst US guided aspiration and injection were discussed. Consent was obtained per clinic protocol. Time out was performed using [facility] Protocol. Sterile technique was utilized with Chloraprep skin prep and sterile US gel. 1ml of 1% lidocaine was used for skin anesthesia. Using a long axis view of the popliteal space with in planeapproach, an 18 gauge needle was inserted into the popliteal cyst under direct US guidance. The cyst was successfully aspirated of3 ml of clear straw colored fluid. The patient tolerated the procedure well without complication. Injection site was cleaned and covered with a band-aid. Attestation I directly supervised theMT. [facility] Fellowphysician, Dr. Márquez was present for all parts of the procedure. Verbal consent obtained by me as the attending on record. Radha Hensley DO CAQSM Electronic Signature on File CC: Vicki Patricia PA-C [address] [facility] [address] [place] [id number] Electronically Reviewed/Signed by: Martin Webster MD Author Signature Dt/Tm:06/02/2024 05:49 PM Resident Division of Sports Medicine Electronically Reviewed/Signed by: Radha Hensley DO Cosigner Signature Dt/Tm: 06/03/2024 12:37PM Division of Sports Medicine DS Patient Care team information Care Team Personnel Name: DO Sheridan Shane D Position: Referring DIRECT Member Role: Primary Care Provider Address: [address] [place] [address] Care Team Related Persons Name: SLICK SHERIFF
--- OUTSIDE RECORDS SUMMARY | 2024-09-03 02:53 | External Medical Summary | Continuity of Care Document ---
Author Name Unknown Organization [place] [id number] Address [address] [place], [place] [id number] Care Team Providers Care Accounting Recruiter Name Role Phone Bruce Sheridan Primary Care Physician [phone] [id number] Date(s): 07/20/24 - 07/20/24 [facility] [address] [place] [address] [facility] Sports Medicine [address] [facility] [address] [place] [address] Encounter Diagnosis Bilateral primary osteoarthritis of knee(Discharge Diagnosis) - 07/20/24 Discharge Disposition: Home or Self Care Attending Physician: RADHA Patricia Madison Allergies, Adverse Reactions, Alerts Substance Criticality Severity Reaction Reaction Severity Status penicillin Unable to assess criticality Moderate Unsure of self Active sulfa drugs Unable to assess criticality Mild Unsure of self Active Terramycin Unable to assess criticality Mild Unsure of self Active Assessment and Plan Extracted from: Title:Clinical Document Author:RADHA Yuen, Geri Perry Date:07/20/24 OUTPATIENT NOTE Name: KYLE SHERIFF Patient Number:1 [id number] : 1940 Date of Service: 07/20/2024 Chief complaint: Bilateral knee pain/DJD HPI: This 84-year-old female presents today for her third and final Euflexxa injection in both knees. She denies any adverse reaction to the previous injections. No swelling.. She denies any redness or warmth. She feels the injections are helping. No new injury. No other complaints. Physical exam General: Well-developed, well-nourished, elderly female, in no acute distress. Sitting on the bed. Alert and oriented. Skin: Warm and dry with good turgor. No rashes or lesions. No ecchymosis or erythema. No intra-articular effusions. Musculoskeletal: Patient has intact motor function of both knees. There is full terminal extension and flexion to greater than 100 degrees. Strength is 5/5 with fair quad tone in each knee. There is mild medial joint line discomfort with palpation in both knees. No lateral joint line discomfort with palpation today in either knee. No peripatellar discomfort. No palpable defect in the patellar tendon or quadriceps tendon of either knee. Ambulating today with a slightly antalgic gait. Neurologic: Gross sensation is intact across the legs by soft touch. Peripheral pulses are 2+. Impression: Bilateral knee DJD Procedure: Informed verbal consent was obtained for administration of Euflexxa. A timeout was taken with nurse Keren in the room and both knees were confirmed with the patient. She was placed on the table in a supine position with her knees in terminal extension. A small bump was placed under the knees for comfort. Left knee was addressed first . Bony landmarks were identified and the superior lateral pouch was marked. Skin was cleansed with Betadine x2 and an alcohol swab x1. Skin was anesthetized using ethyl chloride spray. A vial of Euflexxa was injected through the superior lateral pouch. Free flow was obtained. Patient tolerated the procedure well. Hemostasis was achieved with a Band-Aid. The right knee was addressed next. Bony landmarks were identified and the superior lateral pouch was marked. Skin was cleansed with Betadine x2 and an alcohol swab x1. Skin was anesthetized using ethyl chloride spray. A vial of Euflexxa was injected through the superior lateral pouch. Free flow was obtained. Patient tolerated the procedure well. Hemostasis was achieved with a Band-Aid. Plan: follow-up in 4 to 5 months for reassessment and to see whether the injections should be ordered again. Ice and elevate the knees intermittently as needed for any minor discomfort. Use OTC medications such as Tylenol and Motrin for any mild discomfort. Call with any other concerns. This dictation has been completed using [employer] text voice recognition software. Grammatical errors, omissions, insertions, and misspellings may be present due to the limitations of the software. Medications aspirin 81 mg oral delayed release tablet Start: 10/24/23 9:07:00 AM EDT, 1 tab, PO, Daily Start Date: 10/24/23 Status: Ordered Euflexxa 10 mg/mL intra-articular solution Start: 05/31/24 2:23:00 PM EST, 20 mg =, intra-articular, q7days, Disp# 12 mL, Refills: 0, B/L KNEEDJD M17.0, Note to Pharmacy: 6 syringes for B/L knees. Please ship to physician's office: [address] [place] [address], Pharmacy: [facility] Start Date: 05/31/24 Stop Date: 06/21/24 Status: Ordered Mental Status 07/20/24 Barriers to Learning one year None evide nt Mandatory Health Literacy Documentation Yes Health Literacy Communication Barriers N ever Primary Language Luxembourger Problem List Condition Confirmation Course Effective Dates Status H ealth Status Informant Hx of myocardial infarction Confirmed Active Hypertension Confirmed Active Bilateral primary osteoarthritis of knee Confirmed Active Diagnosis Diagnosis Type Effective Dates Health Status Clinical Service Informant Bilateral primary osteoarthritis of knee Discharge Diagnosis 07/20/24 Social History Social History Type Response Smoking Status Never smoked cigaret davion Sex Female Sex Representation Female (finding) Outpatient Note * RADHA Yuen, Wilmar D: PERFORM Event Display: .Outpt Note Authored Date: [id number] OUTPATIENT NOTE Name: KYLE SHERIFF Patient Number:[id number] : 1940 Date of Service: 07/20/2024 Chief complaint: Bilateral knee pain/DJD HPI: This 84-year-old female presents today for her third and final Euflexxa injection in both knees. She denies any adverse reaction to the previous injections. No swelling.. She denies any redness or warmth. She feels the injections are helping. No new injury. No other complaints. Physical exam General: Well-developed, well-nourished, elderly female, in no acute distress. Sitting on the bed. Alert and oriented. Skin: Warm and dry with good turgor. No rashes or lesions. No ecchymosis or erythema. No intra-articular effusions. Musculoskeletal: Patient has intact motor function of both knees. There is full terminal extension and flexion to greater than 100 degrees. Strength is 5/5 with fair quad tone in each knee. There is mild medial joint line discomfort with palpation in both knees. No lateral joint line discomfort with palpation today in either knee. No peripatellar discomfort. No palpable defect in the patellar tendon or quadriceps tendon of either knee. Ambulating today with a slightly antalgic gait. Neurologic: Gross sensation is intact across the legs by soft touch. Peripheral pulses are 2+. Impression: Bilateral knee DJD Procedure: Informed verbal consent was obtained for administration of Euflexxa. A timeout was takenwith nurse Keren in the room and both knees were confirmed with the patient. She was placed on the table in a supine position with her knees in terminal extension. A small bump was placed under theknees for comfort. Left knee was addressed first . Bony landmarks were identified and the superior lateral pouch was marked. Skin was cleansed with Betadine x2 and an alcohol swab x1. Skin was anesthetized using ethyl chloride spray. A vial of Euflexxa was injected through the superior lateral pouch. Free flow was obtained. Patient tolerated the procedure well. Hemostasis was achieved with a Band-Aid. The right knee was addressed next. Bony landmarks were identified and the superior lateral pouch was marked. Skin was cleansed with Betadine x2 and an alcohol swab x1. Skin was anesthetized using ethyl chloride spray. A vial of Euflexxa was injected through the superior lateral pouch. Free flow wasobtained. Patient tolerated the procedure well. Hemostasis was achieved with a Band-Aid. Plan: follow-up in 4 to 5 months for reassessment and to see whether the injections should be ordered again. Ice and elevate the knees intermittently as needed for any minor discomfort. Use OTC medications such as Tylenol and Motrin for any mild discomfort. Call with any other concerns. This dictation has been completed using [employer] text voice recognition software. Grammatical errors, omissions, insertions, and misspellings may be present due to the limitations of the software. Electronic Signature on File Electronically Reviewed/Signed by: Wilmar Yuen PA-C Author Signature Dt/Tm:07/20/2024 03:42 PM Division of Sports Medicine Electronically Reviewed/Signed by: MD Dahlia Metcalf Signature Dt/Tm: 07/20/2024 06:16 PM Rigging Foreman for Clinical Affairs, [facility] Charu Professor in Orthopaedics Aluminum Molding Machine Operator, [facility] Sports Medicine CDS Patient Care team information Care Team Personnel Name: DO Sheridan Shane D Position: Referring DIRECT Member Role: Primary Care Provider Address: [address] [place] [address] [place] Care Team Related Persons Name: SLICK SHERIFF
--- OUTSIDE RECORDS SUMMARY | 2024-09-03 02:53 | External Medical Summary | Continuity of Care Document ---
Author Name Unknown Organization [place] [id number] Address [address] [place], [place] [id number] Care Team Providers Care Quality Control Clerk Name Role Phone Bruce Sheridan Primary Care Physician [phone] [id number]/24 [facility] [place] [id number] [address] [facility] [address] [place] [address] Encounter Diagnosis Bilateral primary osteoarthritis of knee(Discharge Diagnosis) - 07/05/24 Discharge Disposition: Home or Self Care Attending Physician: RADHA Patricia [place] Allergies, Adverse Reactions, Alerts Substance Criticality Severity Reaction Reaction Severity Status penicillin Unable to assess criticality Moderate Unsure of self Active sulfa drugs Unable to assess criticality Mild Unsure of self Active Terramycin Unable to assess criticality Mild Unsure of self Active Assessment and Plan Extracted from: Title:Orthopaedics Office Visit Note Author:Carlos A brown PA-C, [place] Date:07/05/24 Bilateral primary osteoarthr itis of knee Bilateralknee osteoarthritis,1of 3Euflexxainjection The patient received their gel injection today. They tolerated the procedure well. Pt was encouraged to ice, rest, and use OTC anti-inflammatories as needed for her pain. They were instructed to do gentle ROM today to avoid stiffness. No strenuous activity for a day or two. They will follow up in 1 week. All of their questions and concerns were answered today. PROCEDURE: After explaining the risks and benefits of the procedure, verbal consent was obtained. The injection site and correct patient was confirmed by Gian Sheriff LPN. After performing a time-out, identifying thebilateralknee as the correct knee for intra-articular gel injection, thesuprapatellarportal area was palpated and marked with my initials. This area was prepped with Betadine, followed by ethyl chloride spray and alcohol wipe. Then, a2mL prepackaged syringe ofEuflexxawas easily injected. The area was cleaned and dried and a Band-Aid was placed on the top. There were no immediate complications and patient tolerated procedure well. Medications aspirin 81 mg oral delayed release tablet Start: 10/24/23 9:07:00 AM EDT, 1 tab, PO, Daily Start Date: 10/24/23 Status: Ordered Euflexxa 10 mg/mL intra-articular solution Start: 05/31/24 2:23:00 PM EST, 20 mg =, intra-articular, q7days, Disp# 12 mL, Refills: 0, B/L KNEEDJD M17.0, Note to Pharmacy: 6 syringes for B/L knees. Please ship to physician's office: [address] [place] [address], Pharmacy: [facility] Start Date: 05/31/24 Stop Date: 06/21/24 Status: Ordered Mental Status 07/05/24 Barriers to Learning one year None evide nt Mandatory Health Literacy Documentation Yes Health Literacy Communication Barriers N ever Primary Language Mauritanian Problem List Condition Confirmation Course Effective Dates Status H ealth Status Informant Hx of myocardial infarction Confirmed Active Hypertension Confirmed Active Bilateral primary osteoarthritis of knee Confirmed Active Diagnosis Diagnosis Type Effective Dates Health Status Clinical Service Informant Bilateral primary osteoarthritis of knee Discharge Diagnosis 07/05/24 Non-Specified Social History Social History Type Response Smoking Status Never smoked cigaret davion Sex Female Sex Representation Female (finding) Ortho Outpt Note * RADHA Patricia, Vicki: PERFORM Event Display: Ortho Outpt Note Authored Date: Primary Care Provider DO Sheridan Shane D Chief Complaint B/L knee euflexxa 1/3 History of Present Illness Patient is here today forbilateralknee gel injection. They have no major questions or concerns today. They deny andswelling, redness or warmth. Physical Exam General: Pt is well nourished, seated on the exam table, in NAD Knock knee deformity Pt ambulateswithoutassisted device withan antalgicgait Skin is intact with no effusion, erythema, ecchymosis or warmth Motor function grossly in tact Assessment/Plan Bilateral primary osteoarthritis of knee Bilateralknee osteoarthritis,1of 3Euflexxainjection The patient received their gel injection today. They tolerated the procedure well. Pt was encouraged to ice, rest, and use OTC anti-inflammatories as needed for her pain. They were instructed to do gentle ROM today to avoid stiffness. No strenuous activity for a day or two. They will follow up in1 week. All of their questions and concerns were answered today. PROCEDURE: After explaining the risks and benefits of the procedure, verbal consent was obtained. The injection site and correct patient was confirmed byGian Sheriff LPN. After performing a time-out, identifying thebilateralknee as the correct knee for intra-articular gel injection, thesuprapatellarportal area was palpated and marked with my initials. This area was prepped with Betadine, followed by ethyl chloride spray and alcohol wipe. Then, a2mL prepackaged syringe ofEuflexxawas easily injected. The area was cleaned and dried and a Band-Aid was placed on the top. There were no immediate complications and patient tolerated procedure well. Problem List/Past Medical History Ongoing Bilateral primary osteoarthritis of knee Hx of myocardial infarction Hypertension Medications aspirin(aspirin 81 mg oral delayed release tablet), 81 mg= 1 tab, PO, Daily sodium hyaluronate(Euflexxa 10 mg/mL intra-articular solution), 20 mg, intra- articular, q7days sodium hyaluronate(Euflexxa 10 mg/mL intra-articular solution), 20 mg= 2 mL, intra-articular, ONCE Allergies penicillin (Moderate)Unsure of self Terramycin (Mild)Unsure of self sulfa drugs (Mild)Unsure of self Social History Smoking Status Never smoked cigarettes Recommendations Health Maintenance Pending(in the next year) OverDue Adult Influenza Vaccine due01/11/24and every 1year Due Adult COVID-19 Vaccination due07/05/24Unknown Frequency Adult Social Determinants of Health Screening due07/05/24Unknown Frequency Adult Tdap/Td Vaccine due07/05/24Unknown Frequency Lipid Screening due07/05/24Unknown Frequency Medicare Annual Wellness Visit due07/05/24and every 1year Osteoporosis Screening due07/05/24One-time only Pneumococcal Vaccine Older Adults due07/05/24One-time only Shingles Vaccine due07/05/24One-time only Due In Future Body Mass Index not due until10/24/24and every 366day Satisfied(in the past 1 year) Satisfied Body Mass Index on10/24/23.Satisfied by RADHA Montero Mackenzie A Electronic Signature on File Electronically Reviewed/Signed by: Vicki Patricia PA-C Author Signature Dt/Tm:07/05/2024 04:31 PM Physician Medical Screener, Dept. of Orthopaedics and Sports Medicine [facility] Medical [facility] - [address], [address] [place] [address] Electronically Reviewed/Signed by: Slick Dean MD Cosigner Signature Dt/Tm: 07/06/2024 08:36 AM [place] [facility] Rail Car Repairer Department of Orthopaedics and Rehabilitation [facility] [address], [place], [place] [address] [place] Patient Care team information Care Team Personnel Name: DO Sheridan Shane D Position: Referring DIRECT Member Role: Primary Care Provider Address: [address] [place] [address], [place] [address] [place] Care Team Related Persons Name: SLICK SHERIFF
--- OUTSIDE RECORDS SUMMARY | 2024-09-03 02:53 | External Medical Summary | Continuity of Care Document ---
Author Name Unknown Organization [place] [id number] Address [address] [place], [place] [address] Care Team Providers Care Alumina Refinery Operator Name Role Phone Bruce Sheridan Primary Care Physician [phone] [id number] Date(s[facility] 07/12/24 - 07/12/24 [facility] [address] [place] [id number] [facility] Medicine [address] [facility] [address] [place] [address] Encounter Diagnosis Bilateral primary osteoarthritis of knee(Discharge Diagnosis) - 07/12/24 Discharge Disposition: Home or Self Care Attending [...] Visit Note Author:Carlos A brown PA-C, [place] Date:07/12/24 1.Bilateral primary osteoa rthritis of knee Bilateralknee osteoarthritis,2of 3Euflexxainjection The patient received their gel injection [...] the correct knee for intra-articular gel injection, theanterolateralportal area was palpated and marked with my [...] physician's office: [address] [place] [address], Pharmacy: [facility] Start Date: 05/31/24 Stop Date: 06/21/24 Status: Ordered Problem List Condition Confirmation Course Effective Dates Status H ealth Status Informant Hx of myocardial infarction Confirmed Active Hypertension Confirmed Active Bilateral primary osteoarthritis of knee Confirmed Active Diagnosis Diagnosis Type Effective Dates Health Status Clinical Service Informant Bilateral primary osteoarthritis of knee Discharge Diagnosis 07/12/24 Social History Social History Type Response Smoking Status Never smoked cigaret davion Sex Female Sex Representation Female (finding) Ortho Outpt Note * RADHA Patricia, Vicki: PERFORM Event Display: Ortho Outpt Note Authored Date: [id number] Primary Care Provider DO Sheridan Shane D History of Present Illness Patient is here today forbilateralknee gel injection. They have no major questions or concerns today. They deny andswelling, redness or warmth. Physical Exam General: Pt is well nourished, seated on the exam table, in NAD Knock knee deformity Pt ambulateswithoutassisted device withan antalgicgait Skin is intact with no effusion, erythema, ecchymosis or warmth Motor function grossly in tact Assessment/Plan 1.Bilateral primary osteoarthritis of knee Bilateralknee osteoarthritis,2of 3Euflexxainjection The patient received their gel injection [...] the correct knee for intra-articular gel injection, theanterolateralportal area was palpated and marked with my [...] intra-articular solution), 20 mg, intra- articular, q7days Allergies penicillin (Moderate)Unsure of self Terramycin (Mild)Unsure of self sulfa drugs (Mild)Unsure of self Social History Smoking Status Never smoked cigarettes Recommendations Health Maintenance Pending(in the next year) OverDue Adult Influenza Vaccine due01/11/24and every 1year Due Adult COVID-19 Vaccination due07/12/24Unknown Frequency Adult Social Determinants of Health Screening due07/12/24Unknown Frequency Adult Tdap/Td Vaccine due07/12/24Unknown Frequency Lipid Screening due07/12/24Unknown Frequency Medicare Annual Wellness Visit due07/12/24and every 1year Osteoporosis Screening due07/12/24One-time only Pneumococcal Vaccine Older Adults due07/12/24One-time only Shingles Vaccine due07/12/24One-time only Due In Future Body Mass Index not due until10/24/24and every day Satisfied(in the past 1 year) Satisfied Body Mass Index on10/24/23.Satisfied by RADHA Montero Mackenzie A Electronic Signature on File Electronically Reviewed/Signed by: Vicki Patricia PA-C Author Signature Dt/Tm:07/12/2024 04:26 PM Physician Bi Tri Operator, Dept. of Orthopaedics and Sports Medicine [facility] Medical [facility] [place] [id number] [facility], [address] [place] [address] Electronically Reviewed/Signed by: Ricky Munson MD Cosigner Signature Dt/Tm: 07/12/2024 06:26 PM Patient Service Technician Pst for Clinical Affairs, [facility] Charu Professor in Orthopaedics Picker, [facility] Sports Medicine Patient Care team information Care Team Personnel Name: DO Sheridan Shane D Position: Referring DIRECT Member Role: Primary Care Provider Address: [address] [place] [address] [place] Care Team Related Persons Name: SLICK SHERIFF
--- OUTSIDE RECORDS SUMMARY | 2024-09-03 02:53 | External Medical Summary | Summary of Care ---
Author Name Unknown Organization [facility] Address [address] [facility] [address] Phone [phone] Care Team Providers Care Vinyl Welder And Fabricator Name Role Phone Bruce Sheridan DO Primary Care Provider [phone] Reason for Visit * Reason Onset Date Comments Home Health 06/04/2024 Encounter Details Date Type Department Care Team (Late st Contact Info) Description [facility]/04[facility]24 [facility] [address] [facility] [place] [address] Bruce Sheridan DO [address] [facility] [place] [address] Home Health Allergies Active Allergy Reactions Criticality Noted Date Comments Lisinopril Cough 11/06/2011 Procaine Edema face/lips/tongue,Itc maxim High 11/26/2016 Penicillins Hives High 08/06/1999 Hives down throat Sulfa Antibiotics Hives High 08/06/1999 Hives down throat Hydrocodone-Acetaminoph en Nausea/vomiting Low 08/23/2010 documented as of this encounter (statuses as of 06/04/2024) Medications ASPIRIN EC 81 MG PO TBECIndications:Cor onary atherosclerosis of [place] coronary artery,S/P coronary artery stent placement 1 [...] Tablet 4 Active Vitamin D3 1.25 MG (20079 UT) Oral Capsule TAKE 1 CAPSULE BY MOUTH ONE TIME PER WEEK 12 Capsule 1 4 Active LORazepam 0.5 MG Oral Tablet (Ativan)Indications :Panic attacks,TAWANA (generalized anxiety disorder) TAKE 1 TABLET BY MOUTH TWICE A DAY NEEDED FOR ANXIETY 60 Tablet 2 4 Active documented as of this encounter (statuses as of 06/04/2024) Active Problems Problem Noted Date Diagnosed Date Recurrent major depressive disorder, in partial remission 10/22/2022 Major depressive disorder, recurrent, unspecifie d 10/24/2020 Inflammation of right sacroiliac joint 9 Sacroiliitis 09/07/2018 Gastroesophageal reflux disease without esophagi tis 09/07/2018 TAWANA (generalized anxiety disorder) 09/07/2018 S/P laparoscopic fundoplication 01/09/2017 S/P repair of paraesophageal hernia 01/09/2017 History of RI (myocardial infarction) 10/18/2016 History of colon polyps [...] LDL below 100 11/06/2011 Coronary atherosclerosis of [place] coronary yolanda ry 08/26/2011 S/P coronary artery stent placement 07/08/2011 Overview (07/18/2011): RCA and circumflex Allergic rhinitis Adjustment disorder with depressed mood documented as of this encounter (statuses as of 06/04/2024) Resolved Problems Problem Noted Date Diagnosed Date [...] Malaise and fatigue 08/26/2011 02/06/20 17 Acute RI 07/08/2011 10/18/2016 Closed fracture of part of u pper end of humerus 08/26/2010 02/05/2017 Benign neoplasm of cerebral meninges 05/14/2009 05/27/2023 Overview (06/05/2009): asymptomatic seen on MRI Uterine leiomyoma 09/07/2018 Need for prophylactic hormon e replacement therapy (postmenopausal) 09/07/2018 Dermatitis 02/05/2017 documented as of this encounter (statuses as of 06/04/2024) Immunizations Name Administration Dates Next Due COVID-19 [...] encounter Miscellaneous Notes * Telephone Encounter - Maday Sullivan LPN - 06/04/2024 9:45 AM EST Anatoliy PT from [facility] is calling. Reports that the pt is cancelling today PT visit due to her knee hurting today and is exhausted. Anatoliy will push today's appt to next week. Orders will be faxed for signature. Advised that additional orders will be signed by Bruce Sheridan DO and to fax to the office forsignature. documented in this encounter Plan of Treatment Upcoming Encounters Date Type Department Care Team (Late st Contact Info) Description 07/27/2024 1:00 PM EST Office Visit Family Practice [facility] [place] [address] [facility] [place] [address] Bruce Sheridan DO [address] [facility] [place] [address] Health Maintenance Due Date Last Done Comments Adult Wellness Visit 06/21/2022 06/21/2021 COVID-19 Vaccine ( season) 2024 02/05/2023, 05/23/2021, 09/28/2020, Additional history exists DXA Scan 05/24/2025 05/24/2020, 10/12, 09/26/2011, Additional history exists Depression Monitoring 06/03/2025 06/03/2024 DTap/Tdap Vaccines (3 - Td or Tdap) 12/29/2033 12/30/2023, 04/01/2013, 09/28/2003, Additional history exists Pneumococcal Vaccine: 65+ Years Completed 06/06/2014, 03/25/2007 Colonoscopy Discontinued 10/14/2018, 040 09/2018, 12/07/2015, Additional history exists Zoster Vaccines [...] this encounter Medical Devices Implanted Type Area Insurance Customer Service Specialist Device Identifier Shelf Expiration Date Model / Serial / Lot Alloderm 2x4cm [id number] ( 8 Units ) - [id number] Implanted:Qty : 8 on 01/08/2017 by Wei Jurado MD at [place] [facility] Tissue - Human N/A: Abdomen [employer] 09/11/2018 [id number] / / [id number] documented as of this encounter Advance Directives [...] and were consensually agreed upon. Care Teams Vinyl Welder And Fabricator Relationship Specialty Start Date End Date Bruce Sheridan DO [address] [place] [address] PCP - General Family Medicine 04/07/24 documented as of this encounter
--- OUTSIDE RECORDS SUMMARY | 2024-09-03 02:53 | External Medical Summary | Continuity of Care Document ---
Author Name Unknown Organization [place] [id number] Address [address] [place], [place] [address] Care Team Providers Care Concrete Smoother Name Role Phone Bruce Sheridan Primary Care Physician [phone] [id number] Date(s): 07/12/24 - 07/12/24 [facility] 0 [place] [id number] [facility] Medicine [address] [facility] [address] [place] [address] Encounter Diagnosis Bilateral primary osteoarthritis of knee(Discharge [...] physician's office: [address] [place] [address], Pharmacy: [facility] Start Date: 05/31/24 Stop Date: 06/21/24 Status: [...] Event Display: Ortho Outpt Note Authored Date: [id number] Primary Care Provider DO Sheridan Shane D [...] PA-C Author Signature Dt/Tm:07/12/2024 04:26 PM Physician Imagery Intelligence, Dept. of Orthopaedics and Sports Medicine [facility] [place] [address] [facility], [address] [place] [address] Electronically Reviewed/Signed by: Ricky Munson MD Cosigner Signature Dt/Tm: 07/12/2024 06:26 PM Hand Filer Balance Wheel for Clinical Affairs, [facility] Charu Professor in Orthopaedics Fun House Operator, [facility] Sports Medicine Patient Care team information Care Team Personnel Name: DO Sheridan Shane D Position: Referring DIRECT Member Role: Primary Care Provider Address: [address] [place] [address] [place] Care Team Related Persons Name: SLICK SHERIFF
--- OUTSIDE RECORDS SUMMARY | 2024-09-03 02:54 | External Medical Summary | Summary of Care ---
Author Name Unknown Organization [facility] Address [address] [place] [facility] [place] [address] Phone [phone] Care Team Providers Care Tariff Expert Name Role Phone Desi Sheridan DO Primary Care Provider [phone] Reason for Visit * Reason Comments eRx-Medication Refill Encounter Details Date Type Department Care Team (Late st Contact Info) Description 05/01[facility]24 [facility] [address] [facility] [place] [id number] Desi Sheridan DO 200 [facility] [place] [id number] Allergies Active Allergy Reactions Criticality Noted Date Comments Lisinopril Cough 11/06/2011 Procaine Edema face/lips/tongue,Itc maxim High 11/26/2016 Penicillins Hives High 08/06/1999 Hives down throat Sulfa Antibiotics Hives High 08/06/1999 Hives down throat Hydrocodone-Acetaminoph en Nausea/vomiting Low 08/23/2010 documented as of this encounter (statuses as of 05/03/2024) Medications Medication Sig Dispensed Refills Start Date End Date Status ASPIRIN EC 81 MG PO TBECIndications:Anam nary atherosclerosis of [place] coronary artery,S/P coronary artery stent placement 1 TABLET DAILY 30 Tab 11 2 Active Betamethasone Dipropionate 0.05 % External Lotion (Diprosone) Apply topically to affected area 2 times a day. Apply to scalp as needed for flares. Taper frequency with improvement. 60 mL 3 3 Active Nitroglycerin 0.4 MG Sublingual Tablet Sublingual (Nitrostat)Indicatio ns:S/P coronary artery stent placement,Acute non-ST elevation myocardial infarction (NSTEMI) ([facility]) One tablet under tongue if needed for chest pain. May repeat 3 times. If chest pain continues, call [phone] Tablet 11 4 Active Famotidine 40 MG Oral Tablet (Pepcid)Indications: Gastroesophageal reflux disease with esophagitis without hemorrhage Take 1 Tablet by mouth in the morning. 30 Tablet 11 4 Active LORazepam 0.5 MG Oral Tablet (Ativan)Indications: Panic attacks,TAWANA (generalized anxiety disorder) Take 1 Tablet by mouth 2 times a day as needed for Anxiety. 60 Tablet 2 4 Active Allopurinol 100 MG Oral Tablet (Zyloprim)Indication s:Acute idiopathic gout, unspecified site Take 1 Tablet by mouth in the morning. 30 Tablet 11 4 Active B-12-SL 1000 MCG Sublingual Tablet Sublingual (Cyanocobalamin) Place 1,000 mcg under the tongue in the morning. 90 Tablet 3 4 Active Ondansetron HCl 4 MG Oral TabletIndications:Na usea and vomiting in adult Take 1 Tablet by mouth every 6 hours as needed for Nausea. 10 Tablet 4 Active Vitamin D3 1.25 MG (51706 UT) Oral Capsule TAKE 1 CAPSULE BY MOUTH ONE TIME PER WEEK 12 Capsule 1 4 Active Vitamin D3 1.25 MG (67117 UT) Oral Capsule Take 1 Capsule by mouth once a week. 12 Capsule 1 4 05/03/20 24 Discontinued documented as of this encounter (statuses as of 05/03/2024) Active Problems Problem Noted Date Diagnosed Date [...] LDL below 100 11/06/2011 Coronary atherosclerosis of [place] coronary yolanda ry 08/26/2011 S/P coronary artery stent placement 07/08/2011 Overview: RCA and circumflex Allergic rhinitis Adjustment disorder with depressed mood documented as of this encounter (statuses as of 05/03/2024) Resolved Problems Problem Noted Date Diagnosed Date [...] as of this encounter (statuses as of 05/03/2024) Immunizations Name Administration Dates Next Due COVID-19 [...] Miscellaneous Notes * Telephone Encounter - Desi Sheridan DO - 05/03/2024 1:15 PM EDTSigned Prescriptions: Disp Refills Vitamin D3 1.25 MG (08509 UT) Oral Capsule 12 Cap*1 Sig: TAKE 1 CAPSULE BY MOUTH ONE TIME PER WEEK Authorizing Provider: NEWHOUSER, DESI D * Telephone Encounter - Martin Suresh [facility] - 05/03/2024 1:11 PM EDT Pending Prescriptions: Disp Refills Vitamin D3 1.25 MG (71304 UT) Oral Capsule*12 Cap*1 Sig: TAKE 1 CAPSULE BY MOUTH ONE TIME PER WEEK * Telephone Encounter - Martin Suresh [facility] - 05/03/2024 1:11 PM EDT Pending Prescriptions: Disp Refills Vitamin D3 1.25 MG (89399 UT) Oral Capsule*12 Cap*1 Sig: TAKE 1 CAPSULE BY MOUTH ONE TIME PER WEEK 04/29/2024 (in office), Visit date not found (telemedicine) 06/03/2024 If no future appointments scheduled, and last appointment is greater than a year ago, please schedule patient for a follow-up appointment Last date the medication was ordered: 01/02/24 Pharmacy: [id number] Is this request for a controlled substance?No Urine Drug Screen:No results found for this or any previous visit. Patient Phone Numbers Labs: Lab Results Component Value Date/Time CREAT 0.7 11/17/2023 01:43 PM CREAT 1.1 (H) 04/14/2020 11:11 AM POTASSIUM 3.4 (L) 11/17/2023 01:43 PM POTASSIUM 4.7 04/14/2020 11:11 AM TSH 1.61 12/30/2023 02:25 PM TSH 2.44 03/08/2015 12:45 PM LDL 118 10/03/2022 03:09 PM LDL 112 03/06/2018 10:20 AM LDL NOT APPLICABLE 03/06/2018 10:20 AM ALT <5 (L) 11/17/2023 01:43 PM ALT 15 04/14/2020 11:11 AM HGBA1C 5.4 10/03/2022 03:09 PM HGBA1C 6.0 (H) 04/14/2020 11:11 AM documented in this encounter Plan of Treatment Upcoming Encounters Date Type Department Care Team (Late st Contact Info) Description 06/03/2024 5:20 PM EST Office Visit [facility] [address] [facility] [place] [address] Jannette Noyola PA-C [address] [facility] [place] [phone] 07/27/2024 1:00 PM EST Office Visit [facility] [place] [facility] [address] [place] [address] [address] Desi Sheridan DO [address] [place] [address] Health Maintenance Due Date Last Done Comments Adult Wellness Visit 06/21/2022 06/21/2021 Depression Monitoring 06/21/2022 06/21/2021 COVID-19 Vaccine ( season) 2024 02/05/2023, 05/23/2021, 09/28/2020, Additional history exists Influenza Vaccine (FLU shot) (#1) 2024 06/24/2023, 04/14/2020, 05/03/2019, Additional history exists DXA Scan 05/24/2025 05/24/2020, 04/11/2014, 09/26/2011, Additional history exists DTap/Tdap Vaccines (3 [...] this encounter Medical Devices Implanted Type Area Oven Builder Device Identifier Shelf Expiration Date Model / Serial / Lot Alloderm 2x4cm [id number] ( 8 Units ) - [id number] Implanted:Qty : 8 on 01/08/2017 by Wei Jurado MD at [place] [facility] [place] Tissue - Human N/A: Abdomen LIFE CELL ROXANA 09/11/2018 [id number] / / [id number] documented as of this encounter Advance Directives [...] and were consensually agreed upon. Care Teams Tariff Expert Relationship Specialty Start Date End Date Desi Sheridan DO [address] [place] [address] PCP - General Family Medicine 04/07/24 documented as of this encounter
--- OUTSIDE RECORDS SUMMARY | 2024-09-03 02:54 | External Medical Summary | Summary of Care ---
Author Name Unknown Organization [facility] Address [address] [facility] [address] Phone [phone] Care Team Providers Care Insulation Inspector Name Role Phone Bruce Sheridan DO Primary Care Provider [phone] Reason for Visit * Reason Onset Date Comments Home Health 04/29/2024 Encounter Details Date Type Department Care Team (Late st Contact Info) Description 04/29/2024 [facility] [address] [facility] [place] [address] Bruce Sheridan DO 200 [facility] [place] [address] Home Health Allergies Active Allergy Reactions Criticality Noted Date Comments Lisinopril Cough 11/06/2011 Procaine Edema face/lips/tongue,Itc maxim High 11/26/2016 Penicillins Hives High 08/06/1999 Hives down throat Sulfa Antibiotics Hives High 08/06/1999 Hives down throat Hydrocodone-Acetaminoph en Nausea/vomiting Low 08/23/2010 documented as of this encounter (statuses as of 05/12/2024) Medications Medication Sig Dispensed Refills Start Date End Date Status ASPIRIN EC 81 MG PO TBECIndications:Garcia ry atherosclerosis of [place] coronary artery,S/P coronary artery stent placement 1 [...] hours as needed for Nausea. 10 Tablet 04/27/2024 Active documented as of this encounter (statuses as of 05/12/2024) Active Problems Problem Noted Date Diagnosed Date Recurrent major depressive disorder, in partial remission 10/22/2022 Major depressive disorder, recurrent, unspecifie d 10/24/2020 Inflammation of right sacroiliac joint 9 Sacroiliitis 09/07/2018 Gastroesophageal reflux disease without esophagi tis 09/07/2018 TAWANA (generalized anxiety disorder) 09/07/2018 S/P laparoscopic fundoplication 01/09/2017 S/P repair of paraesophageal hernia 01/09/2017 History of ME (myocardial infarction) 10/18/2016 History of colon polyps [...] LDL below 100 11/06/2011 Coronary atherosclerosis of [place] coronary yolanda ry 08/26/2011 S/P coronary artery stent placement 07/08/2011 Overview: RCA and circumflex Allergic rhinitis Adjustment disorder with depressed mood documented as of this encounter (statuses as of 05/12/2024) Resolved Problems Problem Noted Date Diagnosed Date [...] Malaise and fatigue 08/26/2011 02/06/20 17 Acute ME 07/08/2011 10/18/2016 Closed fracture of part of u pper end of humerus 08/26/2010 02/05/2017 Benign neoplasm of cerebral meninges 05/14/2009 05/27/2023 Overview: asymptomatic seen on MRI Uterine leiomyoma 09/07/2018 Need for prophylactic hormon e replacement therapy (postmenopausal) 09/07/2018 Dermatitis 02/05/2017 documented as of this encounter (statuses as of 05/12/2024) Immunizations Name Administration Dates Next Due COVID-19 [...] MDV , IM, 0.5 mL (Fluzone) 05/05/2014,04/01/2013,03/30/2012,04/09,05/22/2010,05/02/2009,04/14/2007 ,09/01/2002 Seasonal Influenza, High Dos e, Trivalent, PF, IM (Fluzone HD) 04/22/2017 Seasonal Influenza, PF, 6 M & above, IM , (FluLaval or Fluzone) 04/14/2020,04/13/2018 Seasonal Influenza, Quadriva lent Hd (Fluzone Hd) 06/24/2023 Seasonal Influenza, Quadriva lent, No Preserve, IM 05/24/2016,04/19/2015 Seasonal Influenza, Trivalen t, Adjuvanted, 65+ YRS, PF, (Fluad) 05/03/2019 TD - Tetanus/Diptheria (ADULT) 09/28/2003,2003 TDAP (age 10 and older)(Boostrix) 12/30/2023, Varicella [...] encounter Miscellaneous Notes * Telephone Encounter - Sylvia Graves LPN - 05/12/2024 11:45 AM EDT Pt was seen by [facility] ortho 05/10 * Telephone Encounter - Bruce Sheridan DO - 05/07/2024 11:57 AM EDT Please call patient: she has a Mayo's Cyst and an orthopedics referral was placed with her visit last week. Could you call and see if she will schedule this? * Telephone Encounter - Felicia Del Angel LPN - 05/07/2024 11:50 AM EDT FYI. * Telephone Encounter - Carley Horowitz OSA - 04/29/2024 6:11 PM EDT Maicol has called in with [facility] states the pt. Was supposed to be seen yesterday for occupational therapy Maicol did the contac the pt. On his way to do a visit with her was told by the pt/ she is experiencing a lot of pain in her leg did not tell Maicol what leg but did not see the pt. Also states pt. Was in pain 04/27 & 04/28/24 she has refused an evaluation for occupational therapy. He has spoke to her oldest child Stacy she states the pt. Was seen in [facility] was told she has a mayo cyst in her leg tried. Maicol has tried to reach out to Stacy & the pt. & has been unsuccessful he wanted to reach out to Dr. Sheridan so he is aware of the situation please advise. documented in this encounter Plan of Treatment Upcoming Encounters Date Type Department Care Team (Late st Contact Info) Description 06/03/2024 5:20 PM EST Office Visit [facility] [address] [place] [address] [address] Jannette Noyola PA-C [address] [place] [address] [phone] 07/27/2024 1:00 PM EST Office Visit [facility] Margie Willington [address] [place] [address] [address] Bruce Sheridan DO [address] [place] [address] [address] Health Maintenance Due Date Last Done Comments [...] this encounter Medical Devices Implanted Type Area Purse Seiner Device Identifier Shelf Expiration Date Model / Serial / Lot Alloderm 2x4cm [id number] ( 8 Units ) - [id number] Implanted:Qty : 8 on 01/08/2017 by Wei Jurado MD [place] [facility] [place] - Human N/A: Abdomen LIFE CELL ROXANA 09/11/2018 [id number] / / [id number] documented as of this encounter Advance Directives [...] and were consensually agreed upon. Care Teams Insulation Inspector Relationship Specialty Start Date End Date Bruce Sheridan DO [address] [place] [address] PCP - General Family Medicine 04/07/24 documented as of this encounter"
--- OUTSIDE RECORDS SUMMARY | 2024-09-03 02:54 | External Medical Summary | Summary of Care ---
Author Name Unknown Organization [facility] Address [address] [facility] [address] Phone [phone] Care Team Providers Care Access Liaison Name Role Phone DesmondBruce roy Primary Care Provider [phone] Encounter Details Date Type Department Care Team (Late st Contact Info) Description 04/30/2024 Orders Only PATIENT PORTAL DO NOT DELETE THIS DEPT USED BY [place] [id number] Allergies Active Allergy Reactions Criticality Noted Date Comments Lisinopril Cough 11/06/2011 Procaine Edema face/lips/tongue,Itc maxim High 11/26/2016 Penicillins Hives High 08/06/1999 Hives down throat Sulfa Antibiotics Hives High 08/06/1999 Hives down throat Hydrocodone-Acetaminoph en Nausea/vomiting Low 08/23/2010 documented as of this encounter (statuses as of 04/30/2024) Medications Medication Sig Dispensed Refills Start Date End Date Status ASPIRIN EC 81 MG PO TBECIndications:Garcia ry atherosclerosis of [place] coronary artery,S/P coronary artery stent placement 1 TABLET DAILY 30 Tab 11 08/26/2011 Active Betamethasone Dipropionate 0.05 % External Lotion (Diprosone) Apply topically to affected area 2 times a day. Apply to scalp as needed for flares. Taper frequency with improvement. 60 mL 3 11/11/2022 Active Nitroglycerin 0.4 MG Sublingual Tablet Sublingual (Nitrostat)Indications :S/P coronary artery stent placement,Acute non-ST elevation myocardial infarction (NSTEMI) ([facility]) One tablet under tongue if needed for [...] as of this encounter (statuses as of 04/30/2024) Active Problems Problem Noted Date Diagnosed Date [...] LDL below 100 11/06/2011 Coronary atherosclerosis of [place] coronary yolanda ry 08/26/2011 S/P coronary artery stent placement 07/08/2011 Overview: RCA and circumflex Allergic rhinitis Adjustment disorder with depressed mood documented as of this encounter (statuses as of 04/30/2024) Resolved Problems Problem Noted Date Diagnosed Date [...] as of this encounter (statuses as of 04/30/2024) Immunizations Name Administration Dates Next Due COVID-19 [...] No 01/08/2017 documented as of this encounter Plan of Treatment Upcoming Encounters Date Type Department Care Team (Late st Contact Info) Description 06/03/2024 5:20 PM EST Office Visit [facility] [place] [address] [place] [address] Jannette Noyola PA-C [address] [facility] [place] [address] 07/27/2024 1:00 PM EST [facility] [place] [address] [place] [address] [address] Bruce Sheridan DO [address] [place] [address] [address] Health Maintenance Due Date Last Done Comments [...] this encounter Medical Devices Implanted Type Area Founder And Chief Executive Officer Device Identifier Shelf Expiration Date Model / Serial / Lot Alloderm 2x4cm [id number] ( 8 Units ) - [id number] Implanted:Qty : 8 on 01/08/2017 by Wei Jurado MD at [place] [facility] [place] Tissue - Human N/A: Abdomen LIFE CELL ROXANA 09/11/2018 [id number] / / [id number] documented as of this encounter Advance Directives [...] and were consensually agreed upon. Care Teams Access Liaison Relationship Specialty Start Date End Date Bruce Sheridan DO [address] [place] [address] PCP - General Family Medicine 04/07/24 documented as of this encounter
--- OUTSIDE RECORDS SUMMARY | 2024-09-03 02:54 | External Medical Summary | Summary of Care ---
Author Name Unknown Organization [facility] Address [address] [place] [facility] [place] [address] Phone [phone] Care Team Providers Care Ladle Builder Name Role Phone DesmondBruce roy Primary Care Provider [phone] Reason for Visit * Reason Comments Sore Foot Encounter Details Date Type Department Care Team (Late st Contact Info) Description 04/27/2024 1:00 PM EDT [facility] [address] [facility] [place] [address] Dary Villaseñor PA-C [address] [facility] [place] [address] Lower extremity edema*; Pain of left lower extremity; Nausea and vomiting in adult Allergies Active Allergy Reactions Criticality Noted Date Comments Lisinopril Cough 11/06/2011 Procaine Edema face/lips/tongue,Itc maxim High 11/26/2016 Penicillins Hives High 08/06/1999 Hives down throat Sulfa Antibiotics Hives High 08/06/1999 Hives down throat Hydrocodone-Acetaminoph en Nausea/vomiting Low 08/23/2010 documented as of this encounter (statuses as of 04/27/2024) Medications Medication Sig Dispensed Refills Start Date End Date Status ASPIRIN EC 81 MG PO TBECIndications:Anam nary atherosclerosis of [place] coronary artery,S/P coronary artery stent placement 1 TABLET DAILY 30 Tab 11 08/26/2011 Active Betamethasone Dipropionate 0.05 % External Lotion (Diprosone) Apply topically to affected area 2 times a day. Apply to scalp as needed for flares. Taper frequency with improvement. 60 mL 3 11/11/2022 Active Additional Information Patient not taking.Reported on 04/27/2024 Nitroglycerin 0.4 MG Sublingual Tablet Sublingual (Nitrostat)Indicatio ns:S/P coronary artery stent placement,Acute non-ST elevation myocardial infarction (NSTEMI) (HCC) One tablet under tongue if needed for chest pain. May repeat 3 times. If chest pain continues, call 911 25 Tablet 11 11/17/2023 Active Famotidine 40 MG Oral Tablet (Pepcid)Indications: Gastroesophageal reflux disease with esophagitis without hemorrhage Take 1 Tablet by mouth in the morning. 30 Tablet 11 11/17/2023 Active LORazepam 0.5 MG Oral Tablet (Ativan)Indications: Panic attacks,TAWANA (generalized anxiety disorder) Take 1 Tablet by mouth 2 times a day as needed for Anxiety. 60 Tablet 2 12/30/2023 Active Additional Information Patient not taking.Reported on 04/27/2024 Allopurinol 100 MG Oral Tablet (Zyloprim)Indication s:Acute idiopathic gout, unspecified site Take 1 Tablet by mouth in the morning. 30 Tablet 11 12/30/2023 Active Additional Information Patient not taking.Reported on 04/27/2024 B-12-SL 1000 MCG Sublingual Tablet Sublingual (Cyanocobalamin) Place 1,000 mcg under the tongue in the morning. 90 Tablet 3 01/02/2024 Active Vancomycin HCl 125 MG Oral Capsule (Vancocin) Take 1 Capsule by mouth every 6 hours. 04/20/2024 4 Active Ondansetron HCl 4 MG Oral TabletIndications:Na usea and vomiting in adult Take 1 Tablet by mouth every 6 hours as needed for Nausea. 10 Tablet 04/27/2024 Active Ondansetron HCl 4 MG Oral TabletIndications:Na usea and vomiting in adult Take 1 Tablet by mouth every 6 hours as needed for Nausea. 10 Tablet 01/09/2024 4 Discontinu ed(Refill) documented as of this encounter (statuses as of 04/27/2024) Active Problems Problem Noted Date Diagnosed Date Recurrent major depressive disorder, in partial remission 10/22/2022 Major depressive disorder, recurrent, unspecifie d 10/24/2020 Inflammation of right sacroiliac joint 9 Sacroiliitis 09/07/2018 Gastroesophageal reflux disease without esophagi tis 09/07/2018 TAWANA (generalized anxiety disorder) 09/07/2018 S/P laparoscopic fundoplication 01/09/2017 S/P repair of paraesophageal hernia 01/09/2017 History of [place] (myocardial infarction) 10/18/2016 History of colon polyps [...] LDL below 100 11/06/2011 Coronary atherosclerosis of [place] coronary yolanda ry 08/26/2011 S/P coronary artery stent placement 07/08/2011 Overview: RCA and circumflex Allergic rhinitis Adjustment disorder with depressed mood documented as of this encounter (statuses as of 04/27/2024) Resolved Problems Problem Noted Date Diagnosed Date [...] Malaise and fatigue 08/26/2011 02/06/20 17 Acute [place] 07/08/2011 10/18/2016 Closed fracture of part of u pper end of humerus 08/26/2010 02/05/2017 Benign neoplasm of cerebral meninges 05/14/2009 05/27/2023 Overview: asymptomatic seen on MRI Uterine leiomyoma 09/07/2018 Need for prophylactic hormon e replacement therapy (postmenopausal) 09/07/2018 Dermatitis 02/05/2017 documented as of this encounter (statuses as of 04/27/2024) Immunizations Name Administration Dates Next Due COVID-19 [...] Sign Reading Time Taken Comments Blood Pressure 119/80 04/27/2024 1:44 PM EDT Pulse 113 04/27/2024 1:44 PM EDT Temperature 37.2 C (99 F) 04/27/2024 1:44 PM EDT Respiratory Rate 16 04/27/2024 1:44 PM EDT Oxygen Saturation - - Inhaled Oxygen Concentration - - Weight 56.2 kg (124 lb) 04/27/2024 1:44 PM EDT Height - - Body Mass Index 23.23 01/09/2024 2:34 PM EDT documented in this encounter Functional Status Functional Status Response [...] as of this encounter Progress Notes * Dary Villaseñor PA-C - 04/27/2024 2:27 PM EDT Subjective Paola Colbert is a 84 year old female that presents for Sore Foot 84 y/o female presents c/o left calf pain. Pt states she just came home from [facility] after a one week stay for COVID. Since coming home Friday the pain started suddenly and has been getting worse. She reports the pain starts on the top of her foot but then shoots up the back of her left calf. She is unable to walk because of the pain. Pain has been getting worse. She has had gout once before but this feels different. Nothing makes the pain better. Denies fevers, chills, chest pain, SOB. Was on "shots in the belly" in the hospital for blood thinners. No hx of previous blood clots. Allergies and medications reviewed. Has hospital d/c appt scheduled with October on . Objective BP 119/80 | Pulse 113 | Temp 37.2 C (99 F) | Resp 16 | Wt 56.2 kg (124 lb) | BMI 23.23 kg/m |BSA 1.56 m Body mass index is 23.23 kg/m. BP Readings from Last 3 Encounters: 04/27/24 119/80 01/05/24 116/64 12/30/23 118/76 Wt Readings from Last 3 Encounters: 04/27/24 56.2 kg (124 lb) 01/09/24 59 kg (130 lb 1.3 oz) 01/05/24 58.6 kg (129 lb 1.3 oz) Physical Exam Vitals and nursing note reviewed. Constitutional: General: She is not in acute distress. Appearance: Normal appearance. HENT: Head: Normocephalic and atraumatic. Eyes: General: No scleral icterus. Extraocular Movements: Extraocular movements intact. Conjunctiva/sclera: Conjunctivae normal. Pupils: Pupils are equal, round, and reactive to light. Cardiovascular: Rate and Rhythm: Normal rate. Pulmonary: Effort: Pulmonary effort is normal. Musculoskeletal: Comments: Left calf tender and warm to palpation with edema compared to the right. There is increased pain with forced extension. Unable to bear weight due to pain. There is mild right lower foot edema with tenderness to palpation on the dorsal surface of the foot. Neurovascularly intact, sensationintact. Skin: General: Skin is warm and dry. Findings: No rash. Neurological: General: No focal deficit present. Mental Status: She is alert and oriented to person, place, and time. Psychiatric: Mood and Affect: Mood normal. Behavior: Behavior normal. Assessment and plan 1. Lower extremity edema - VASC DUPLEX VENOUS LE UNILAT 2. Pain of left lower extremity - VASC DUPLEX VENOUS LE UNILAT 3. Nausea and vomiting in adult - Ondansetron HCl 4 MG Oral Tablet; Take 1 Tablet by mouth every 6 hours as needed for Nausea. Dispense: 10 Tablet; Refill: 0 -high suspicion for DVT with recent hospitalization and exam findings -STAT doppler at [facility] now- will plan to call with results -pt will also get stat labs done while she is there- if positive DVT can plan to start Eliquis or Xarelto if labs are stable Total time today including reviewing chart before the visit, pertinent labs, imaging reports, face to face time, and documentation time was 35 minutes. The above was discussed and understanding was expressed. Dary Villaseñor PA-C * Rama Zarate RN - 04/27/2024 1:34 PM EDT Left outer foot pain going up left calf. Started on Friday.Hx of gout. Pt was at [facility] d/t Covid. documented in this encounter Plan of Treatment Upcoming Encounters Date Type Department Care Team (Late st Contact Info) Description 04/27/2024 3:30 PM EDT Appointment [facility] [place] [address] 04/29/2024 1:00 PM EDT Office Visit [facility] [place] [address] [facility] [place] [address] Jannette Noyola PA-C [address] [facility] [place] [address] 07/27/2024 1:00 PM EST Office Visit [facility] [place] [address] [facility] [place] [id number] Bruce Sheridan DO [address] [facility] [place] [address] Scheduled Orders Name Type Priority Associated Diagnoses Orde r Schedule VASC DUPLEX VENOUS LE UNILAT Medical Imaging STAT Lower extremity edema Pain of left lower extremity Ordered: 04/27/2024 COMPREHENSIVE METABOLIC PANEL Lab STAT Lower extremity edema Pain of left lower extremity Expected: 04/27/2024 (Approximate), Expires: 04/27/2025 CBC WITH WBC DIFFERENTIAL Lab STAT Lower extremity edema Pain of left lower extremity Expected: 04/27/2024 (Approximate), Expires: 04/27/2025 Health Maintenance Due Date Last Done Comments Adult Wellness Visit 06/21/2022 06/21/2021 Depression Monitoring 06/21/2022 06/21/2021 COVID-19 Vaccine ( season) 2024 02/05/2023, 05/23/2021, 09/28/2020, Additional history exists Influenza Vaccine (FLU shot) (#1) 2024 06/24/2023, 04/14/2020, 05/03/2019, Additional history exists DXA Scan 05/24/2025 05/24/2020, 0411/2014, 09/26/2011, Additional history exists DTap/Tdap Vaccines (3 [...] this encounter Medical Devices Implanted Type Area Filling And Packing Supervisor Device Identifier Shelf Expiration Date Model / Serial / Lot Alloderm 2x4cm [id number] ( 8 Units ) - [id number] Implanted:Qty : 8 on 01/08/2017 by Wei Jurado MD [place] [facility] [place] Tissue - Human N/A: Abdomen LIFE CELL ROXANA 09/11/2018 [id number] / / [id number] documented as of this encounter Visit Diagnoses Diagnosis Lower extremity edema- Primary Edema Pain of left lower extremity Nausea and vomiting in adult Nausea with vomiting documented in this encounter Advance Directives * [...] and were consensually agreed upon. Care Teams Ladle Builder Relationship Specialty Start Date End Date Bruce Sheridan DO [address] [place] [address] PCP - General Family Medicine 04/07/24 documented as of this encounter
--- OUTSIDE RECORDS SUMMARY | 2024-09-03 02:54 | External Medical Summary | Summary of Care ---
Author Name Unknown Organization [facility] Address [address] [place] [address] Phone [phone] Care Team Providers Care Gutter Hanger Name Role Phone PrabhjotBruce woodward Primary Care Provider [phone] Reason for Referral * Evaluate & Treat - Unlimited Visits (Within 10 days (routine)) - Authorized Specialty Diagnoses / Procedures Referred By Adam cabrera Referred To Contact Orthopaedic Surgery / Orthopedics Diagnoses Synovial cyst of left popliteal space Osteoarthritis of left knee, unspecified osteoarthritis type Jannette Noyola PA-C [address] [place] [id number] Referral ID Status Reason Start Date Expiration Date Visits Requested Visits Authorized [id number] Authorized Specialty Services Required 4 [phone] Question Answer Referral Priority Within 10 days (routine) Where should this appointment be scheduled? [facility] What body part is the patient being seen for? Thigh/Knee What condition is the patient being seen for? Arthritis including related infection Reason for Visit * Reason Comments Hospital Follow-Up Encounter Details Date Type Department Care Team (Latest Contact Info) Description 04/29/2024 1:00 PM EDT Office Visit Family Practice [facility] [address] [place] [address] [address] Jannette Noyola PA-C [address] [place] [address] [id number] Bronchitis due to COVID-19 virus*; Hypoxia; Synovial cyst of popliteal space, unspecified laterality; Synovial cyst of left popliteal space; Osteoarthritis of left knee, unspecified osteoarthritis type; Anemia, unspecified type Allergies Active Allergy Reactions Criticality Noted Date Comments Lisinopril Cough 11/06/2011 Procaine Edema face/lips/tongue,Itc maxim High 11/26/2016 Penicillins Hives High 08/06/1999 Hives down throat Sulfa Antibiotics Hives High 08/06/1999 Hives down throat Hydrocodone-Acetaminoph en Nausea/vomiting Low 08/23/2010 documented as of this encounter (statuses as of 04/29/2024) Medications Medication Sig Dispensed Refills Start Date End Date Status ASPIRIN EC 81 MG PO TBECIndications:Garcia ry atherosclerosis of [place] coronary artery,S/P coronary artery stent placement 1 [...] as of this encounter (statuses as of 04/29/2024) Active Problems Problem Noted Date Diagnosed Date Recurrent major depressive disorder, in partial remission 10/22/2022 Major depressive disorder, recurrent, unspecifie d 10/24/2020 Inflammation of right sacroiliac joint 9 Sacroiliitis 09/07/2018 Gastroesophageal reflux disease without esophagi tis 09/07/2018 TAWANA (generalized anxiety disorder) 09/07/2018 S/P laparoscopic fundoplication 01/09/2017 S/P repair of paraesophageal hernia 01/09/2017 History of [place] (myocardial infarction) 10/18/2016 History of colon polyps [...] LDL below 100 11/06/2011 Coronary atherosclerosis of [place] coronary yolanda ry 08/26/2011 S/P coronary artery stent placement 07/08/2011 Overview: RCA and circumflex Allergic rhinitis Adjustment disorder with depressed mood documented as of this encounter (statuses as of 04/29/2024) Resolved Problems Problem Noted Date Diagnosed Date [...] Malaise and fatigue 08/26/2011 02/06/20 17 Acute [place] 07/08/2011 10/18/2016 Closed fracture of part of u pper end of humerus 08/26/2010 02/05/2017 Benign neoplasm of cerebral meninges 05/14/2009 05/27/2023 Overview: asymptomatic seen on MRI Uterine leiomyoma 09/07/2018 Need for prophylactic hormon e replacement therapy (postmenopausal) 09/07/2018 Dermatitis 02/05/2017 documented as of this encounter (statuses as of 04/29/2024) Immunizations Name Administration Dates Next Due COVID-19 [...] Sign Reading Time Taken Comments Blood Pressure 116/74 04/29/2024 1:07 PM EDT Pulse 84 04/29/2024 1:07 PM EDT Temperature 36.5 C (97.7 F) 04/29/2024 1:07 PM ED T Respiratory Rate 18 04/29/2024 1:07 PM EDT Oxygen Saturation 98% 04/29/2024 1:07 PM EDT Inhaled Oxygen Concentration - - Weight - - Height - - Body Mass Index - - documented in this encounter Functional Status Functional [...] as of this encounter Progress Notes * Jannette Noyola PA-C - 04/29/2024 1:18 PM EDT Images from the original note were not included. History of Present Illness Paola Colbert is a 84 year old female that presents for Hospital Follow-Up Patient is a 84 year old female who presents for a hospital follow up. Was diagnosed with covid on 04/04. Hospitalized from 04/12-04/20. Has been home for a week. Daughter says she is improving. Appetite poor; stomach Sleep fair; some naps. Urination/good, diarrhea lessening. 1 bm per day. Denies chest pain, sob, palpitations, headaches, dizzy Swelling in left lower extremity ; elevating, heat. Physical Exam Vitals: 04/29/24 1307 Temp: 36.5 C (97.7 F) Pulse: 84 Resp: 18 SpO2: 98% BP: 116/74 BP Readings from Last 3 Encounters: 04/29/24 116/74 04/27/24 119/80 01/05/24 116/64 Wt Readings from Last 3 Encounters: 04/27/24 56.2 kg (124 lb) 01/09/24 59 kg (130 lb 1.3 oz) 01/05/24 58.6 kg (129 lb 1.3 oz) General: alert, healthy, no distress, well nourished, well developed, and cooperative Head: Normocephalic, No masses, lesions, [...] no joint deformities, effusion, or inflammation, no skin discoloration, no clubbing, no cyanosis, cuny-et-piezmiwu edema noted both knees more pronounced around the left knee medial side. Neuro Exam: alert & oriented x 3 with fluent speech, no focal motor/sensory deficits I have reviewed the following results: Imaging results in the last 6 months [facility] DUPLEX VENOUS LE UNILAT Result Date: 04/27/2024 : Left lower extremity with no evidence of acute deep venous thrombosis. A non- vascular, cystic mass is demonstrated in the left popliteal fossa with sonographic features consistent with a Mayo's cyst, measuring 2.0 cm by 4.3 cm. CBC results Recent Labs Units 12/30/23 1425 11/17/23 1343 WBC K/uL 11.19* 8.47 HGB g/dL 12.1 12.2 HCT % 41.1 39.2 PLT K/uL 664* 816* Assessment and Plan Bronchitis due to COVID-19 virus (Primary) Hypoxia Synovial cyst of popliteal space, unspecified laterality Synovial cyst of left popliteal space - ORTHOPAEDICS REFERRAL OP Osteoarthritis of left knee, unspecified osteoarthritis type - ORTHOPAEDICS REFERRAL OP Anemia, unspecified type - CBC; Future; Expected date: 04/29/2024 Follow Up: Return in about 1 month (around 05/30/2024) for Clinic Visit. | For: Clinic Visit Wrap-Up Time: I spent a total of 40-54 minutes (exact time 45 mins) on the date of service in preparation, delivery, and documentation of the care provided to Paola Colbert excluding any time spent in the performance of separately billed services. documented in this encounter Nursing Notes * Felicia Del Angel LPN - 04/29/2024 1:06 PM EDT Paola Colbert presents for hospital follow up. Medications & HM reviewed. She was in the hospital with COVID. She was also seen on Friday for concern for a blood clot in her left leg- it was found to be a Mayo's cyst but it's getting worse. documented in this encounter Plan of Treatment Upcoming Encounters Date Type Department Care Team (Late st Contact Info) Description 06/03/2024 5:20 PM EST Office Visit [facility] [address] [place] [address] Jannette Noyola PA-C [address] [facility] [place] [address] 07/27/2024 1:00 PM EST Office Visit [facility] [address] [facility] [place] [address] Bruce Sheridan DO [address] [facility] [place] [address] Scheduled Orders Name Type Priority Associated Diagnoses Orde r Schedule CBC Lab Routine Anemia, unspecified type Expected: 04/29/2024 (Approximate), Expires: 04/29/2025 Scheduled Referrals Name Type Priority Associated Diagnoses Orde r Schedule ORTHOPAEDICS REFERRAL OP Referral Within 10 days (routine) Synovial cyst of left popliteal space Osteoarthritis of left knee, unspecified osteoarthritis type Ordered: 04/29/2024 Health Maintenance Due Date Last Done Comments [...] this encounter Medical Devices Implanted Type Area Rn Iv Therapy Device Identifier Shelf Expiration Date Model / Serial / Lot Alloderm 2x4cm [id number] ( 8 Units ) - [id number] Implanted:Qty : 8 on 01/08/2017 [place] Jurado [place] [facility] [place] Human N/A: Abdomen LIFE CELL ROXANA 09/11/2018 [id number] / / [id number] documented as of this encounter Visit Diagnoses Diagnosis Bronchitis due to COVID-19 virus- Primary Hypoxia Hypoxemia Synovial cyst of popliteal space, unspecified laterality Synovial cyst of left popliteal space Synovial cyst of popliteal space Osteoarthritis of left knee, unspecified osteoarthritis type Anemia, unspecified type documented in this encounter [...] and were consensually agreed upon. Care Teams Gutter Hanger Relationship Specialty Start Date End Date Bruce Sheridan DO [address] [place] [address] PCP - General Family Medicine 04/07/24 documented as of this encounter"
--- OUTSIDE RECORDS SUMMARY | 2024-09-03 02:54 | External Medical Summary | Summary of Care ---
Author Name Unknown Organization [facility] Address [address] [facility] [place] [address] Phone [phone] Care Team Providers Care Printed Circuit Board Drafter Name Role Phone Bruce Sheridan DO Primary Care Provider [phone] Reason for Visit * Reason Onset Date Comments Advice 04/22/2024 Encounter Details Date Type Department Care Team (Late st Contact Info) Description 04/22/2024 [facility] [address] [facility] [place] [address] Bruce Sheridan DO 200 [facility] [place] [address] Advice Allergies Active Allergy Reactions Criticality Noted Date Comments Lisinopril Cough 11/06/2011 Procaine Edema face/lips/tongue,Itc maxim High 11/26/2016 Penicillins Hives High 08/06/1999 Hives down throat Sulfa Antibiotics Hives High 08/06/1999 Hives down throat Hydrocodone-Acetaminoph en Nausea/vomiting Low 08/23/2010 documented as of this encounter (statuses as of 04/23/2024) Medications Medication Sig Dispensed Refills Start Date End Date Status ASPIRIN EC 81 MG PO TBECIndications:Garcia ry atherosclerosis of [place] coronary artery,S/P coronary artery stent placement 1 [...] needed for Nausea. 10 Tablet 01/09/2024 Active Vancomycin HCl 125 MG Oral Capsule (Vancocin) Take 1 Capsule by mouth every 6 hours. 04/20/2024 04/28/2024 Active documented as of this encounter (statuses as of 04/23/2024) Active Problems Problem Noted Date Diagnosed Date [...] LDL below 100 11/06/2011 Coronary atherosclerosis of [place] coronary yolanda ry 08/26/2011 S/P coronary artery stent placement 07/08/2011 Overview: RCA and circumflex Allergic rhinitis Adjustment disorder with depressed mood documented as of this encounter (statuses as of 04/23/2024) Resolved Problems Problem Noted Date Diagnosed Date [...] as of this encounter (statuses as of 04/23/2024) Immunizations Name Administration Dates Next Due COVID-19 [...] encounter Miscellaneous Notes * Telephone Encounter - Belkis Roberts OSA - 04/23/2024 2:38 PM EDT Ector with [facility] is calling to speak with a nurse about an update on the patient Call transferred to nurse Carvalho * Telephone Encounter - Keisha Beasley RN - 04/22/2024 4:02 PM EDT Called [facility] and gave ok to add patient for home visit tomorrow. * Telephone Encounter - Carla Lyon OSA - 04/22/2024 11:40 AM EDT [facility] calling to get permission from provider that patient could have a home visit tomorrow Tuesday, April 23, 2024 please call for approval documented in this encounter Plan of Treatment Upcoming Encounters Date Type Department Care Team (Late st Contact Info) Description 04/26/2024 12:00 PM EDT Office Visit [facility] 200 [facility] [place], [place] [address] Jannette Noyola PA-C 200 [facility] [place] [address] 07/27/2024 1:00 PM EST Office Visit [facility] 200 [facility] [place] [address] Bruce Sheridan, 200 [facility] [place] [address] Health Maintenance Due Date Last Done Comments [...] this encounter Medical Devices Implanted Type Area Rate Supervisor Device Identifier Shelf Expiration Date Model / Serial / Lot Alloderm 2x4cm [id number] ( 8 Units ) - [id number] Implanted:Qty : 8 on 01/08/2017 by Wei Jurado MD at [place] [facility] [place] Tissue - Human N/A: Abdomen LIFE CELL ROXANA 09/11/2018 [id number] / / [id number] documented as of this encounter Advance Directives [...] and were consensually agreed upon. Care Teams Printed Circuit Board Drafter Relationship Specialty Start Date End Date Bruce Sheridan DO [address] [place] [address] PCP - General Family Medicine 04/07/24 documented as of this encounter
--- OUTSIDE RECORDS SUMMARY | 2024-09-03 02:54 | External Medical Summary | Continuity of Care Document ---
Author Name Unknown Organization [facility] [address] [place], [place] [address]A Address [address] [place], [place] [id number] Care Team Providers Care Medical Research Scientist Name Role Phone Bruce Sheridan Primary Care Physician [phone] [id number] Date(s): 05/10/24 - 05/10/24 [facility] [place] [address] [address] [facility] [address] [facility] [address] [place] [address] Encounter Diagnosis Left knee DJD(Discharge Diagnosis) - 05/10/24 Mayo cyst(Discharge Diagnosis) - 05/10/24 Discharge Disposition: Home or Self Care Attending Physician: RADHA Yuen Cory D Allergies, Adverse Reactions, Alerts Substance Criticality Severity Reaction Reaction Severity Status penicillin Unable to assess criticality Moderate Unsure of self Active sulfa drugs Unable to assess criticality Mild Unsure of self Active Terramycin Unable to assess criticality Mild Unsure of self Active Assessment and Plan Extracted from: Title:Orthopaedics Office Visit Note Author:Carlos A brown PA-C, [place] Date:05/10/24 Mayo cyst Left knee DJD Findings and plan discussed with the patient. I discussed with her that she may have a small Mayo's cyst which may be due to her arthritis and likely an arthritic flare from her being stiff in her hospitalization. Recommended cortisone injection today into her knee joint to help with some of this pain and could potentially also help with the Bakers cyst. She is interested in getting the Mayo's cyst aspirated today which I placed a referral to have this done under ultrasound guidance. I discussed with her that there is no guarantee they can aspirate any of the fluid and that it does frequently return. It is possible they could inject cortisone to prevent it from returning. She can do icing as well. Also sent a message to case management to put in the authorization to have her repeat Euflexxa injections when eligible as they worked very well for her.All of their questions and concerns were addressed. She expressed verbal understanding and agreement with this plan. PROCEDURE: After explaining the risks and benefits of the procedure, verbal consent was obtained. The injection site and correct patient was confirmed byAleksander Sheriff LPN. After performing a time-out, identifying theleftknee as the correct knee for intra-articular cortisone injection, theanterolateralportal area was palpated and marked area with my initials. This area was prepped with Betadine, followed by ethyl chloride spray and alcohol wipe. Then, using a 25 gauge needle on a 5cc syringe, a combination of 1 mL of 1% lidocaine plain plus 2 mL of 0.25% Marcaine plain plus 1 mL of 40 mg of Depo-Medrol were easily injected. The area was cleaned and dried and a Band-Aid was placed on the top. There were no immediate complications and patient tolerated procedure well. Medications aspirin 81 mg oral delayed release tablet Start: 10/24/23 9:07:00 AM EDT, 1 tab, PO, Daily Start Date: 10/24/23 Status: Ordered Mental Status 05/10/24 Barriers to Learning one year None evide nt Mandatory Health Literacy Documentation Yes Health Literacy Communication Barriers N ever Primary Language Mohawk Problem List Condition Confirmation Course Effective Dates Status H ealth Status Informant Hx of myocardial infarction Confirmed Active Hypertension Confirmed Active Bilateral primary osteoarthritis of knee Confirmed Active Diagnosis Diagnosis Type Effective Dates Health Status Cl inical Service Informant Left knee DJD Discharge Diagnosis 05/10/24 Non-Specified Mayo cyst Discharge Diagnosis 05/10/24 Non-Specified Social History Social History Type Response Smoking Status Never smoked cigaret davion Sex Female Sex Representation Female (finding) Ortho Outpt Note * RADHA Patricia, Vicki: PERFORM Event Display: Ortho Outpt Note Authored Date: [id number] Primary Care Provider DO Sheridan Shane D Chief Complaint L knee mayo cyst History of Present Illness Jerry an 84-year-old female here today for evaluation of her left knee. She last received a Euflexxa series in December she says it worked very well for her. She then was hospitalized with COVID and C. difficile and she was not moving her knee as she normally would and started to get pain and swelling in her knee. They had done an ultrasound to rule out a DVT and noticed a Mayo's cyst. It does bother her to walk and move her knee. Physical Exam Left knee: Knock-knee deformity. Mild knee effusion. -5 to 100 degrees range of motion. Palpable Mayo's cyst present. Patient has some medial and lateral joint line pain. No pain in the popliteal space. Strength is intact with resisted dorsiflexion plantarflexion as well as knee flexion/extension Diagnostic Results I reviewed x-rays previously from [facility] that show degenerative changes mostly over the lateral joint compartment as well as a knock-knee deformity A ultrasound Doppler was done 04/14 that did not show any DVT. There is no mention of a Mayo's cyst. Assessment/Plan Myao cyst Left knee DJD Findings and plan discussed with the patient. I discussed with her that she may have a small Mayo's cyst which may be due to her arthritis and likely an arthritic flare from her being stiff in herhospitalization. Recommended cortisone injection today into her knee joint to help with some of this pain and could potentially also help with the Bakers cyst. She is interested in getting the Mayo's cyst aspirated today which I placed a referral to have this done under ultrasound guidance. I discussed with her that there is no guarantee they can aspirate any of the fluid and that it does frequently return. It is possible they could inject cortisone to prevent it from returning. She can do icing as well. Also sent a message to case management to put in the authorization to have her repeat Euflexxa injections when eligible as they worked very well for her.All of their questions and concerns were addressed. She expressed verbal understanding and agreement with this plan. PROCEDURE: After explaining the risks and benefits of the procedure, verbal consent was obtained. The injection site and correct patient was confirmed byAleksander Sheriff LPN. After performing a time-out, identifying theleftknee as the correct knee for intra-articular cortisone injection, th eanterolateralportal area was palpated and marked area with my initials. This area was prepped with Betadine, followed by ethyl chloride spray and alcohol wipe. Then, using a 25 gauge needle on a 5cc syringe, a combination of 1 mL of 1% lidocaine plain plus 2 mL of 0.25% Marcaine plain plus1 mL of 40 mg of Depo-Medrol were easily injected. The area was cleaned and dried and a Band- Aid was placed on the top. There were no immediate complications and patient tolerated procedure well. Problem List/Past Medical History Ongoing Bilateral primary osteoarthritis of knee Hx of myocardial infarction Hypertension Medications aspirin(aspirin 81 mg oral delayed release tablet), 81 mg= 1 tab, PO, Daily Allergies penicillin (Moderate)Unsure of self Terramycin (Mild)Unsure of self sulfa drugs (Mild)Unsure of self Social History Smoking Status Never smoked cigarettes Recommendations Health Maintenance Pending(in the next year) OverDue Adult Influenza Vaccine due01/11/24and every 1year Due Adult COVID-19 Vaccination due05/10/24Unknown Frequency Adult Social Determinants of Health Screening due05/10/24Unknown Frequency Adult Tdap/Td Vaccine due05/10/24Unknown Frequency Lipid Screening due05/10/24Unknown Frequency Medicare Annual Wellness Visit due05/10/24and every 1year Osteoporosis Screening due05/10/24One-time only Pneumococcal Vaccine Older Adults due05/10/24One-time only Shingles Vaccine due05/10/24One-time only Due In Future Body Mass Index not due until10/24/24and every Satisfied(in the past 1 year) Satisfied Body Mass Index on10/24/23.Satisfied by RADHA Montero Mackenzie A Electronic Signature on File Electronically Reviewed/Signed by: Vicki Patricia PA-C Author Signature Dt/Tm:05/10/2024 04:05 PM Physician Laser Machine Operator, Dept. of Orthopaedics and Sports Medicine [facility] - [address], [address] [place] [address] Electronically Reviewed/Signed by: MD Dahlia Metcalf Signature Dt/Tm: 05/11/2024 05:45 AM Glycerin Operator for Clinical Affairs, [facility] Charu Professor in Orthopaedics Grade Checker, [facility] Sports Medicine JOSUE Patient Care team information Care Team Personnel Name: DO Sheridan Shane D Position: Referring DIRECT Member Role: Primary Care Provider Address: [address] [place] [address] [place] Care Team Related Persons Name: SLICK SHERIFF
--- OUTSIDE RECORDS SUMMARY | 2024-09-03 02:54 | External Medical Summary | Summary of Care ---
Author Name Unknown Organization [facility] Address [address] [place] [address] Phone [phone] Care Team Providers Care Director Compliance Name Role Phone DesmondBruce roy Primary Care Provider [phone] Encounter Details Date Type Department Care Team (Latest Contact Info) Description 04/27/2024 3:30 PM EDT - 04/27/2024 11:59 PM EDT Hospital Encounter Vascular Lab, [facility] [address], [place] [id number] Arrived Discharge Disposition: Home - Self Care Allergies Active Allergy Reactions Criticality Noted Date Comments Lisinopril Cough 11/06/2011 Procaine Edema face/lips/tongue,Itc maxim High 11/26/2016 Penicillins Hives High 08/06/1999 Hives down throat Sulfa Antibiotics Hives High 08/06/1999 Hives down throat Hydrocodone-Acetaminoph en Nausea/vomiting Low 08/23/2010 documented as of this encounter (statuses as of 04/28/2024) Medications Medication Sig Dispensed Refills Start Date End Date Status ASPIRIN EC 81 MG PO TBECIndications:Coron brian atherosclerosis of [place] coronary artery,S/P coronary artery stent placement 1 TABLET DAILY 30 Tab 11 08/26/2011 Active Betamethasone Dipropionate 0.05 % External Lotion (Diprosone) Apply topically to affected area 2 times a day. Apply to scalp as needed for flares. Taper frequency with improvement. 60 mL 3 11/11/2022 Active Additional Information Patient not taking.Reported on 04/27/2024 Nitroglycerin 0.4 MG Sublingual Tablet Sublingual (Nitrostat)Indication s:S/P coronary artery stent placement,Acute non-ST elevation myocardial infarction (NSTEMI) (HCC) One tablet under tongue if needed for chest pain. May repeat 3 times. If chest pain continues, call [phone] 25 Tablet 11 11/17/2023 Active Famotidine 40 MG Oral Tablet (Pepcid)Indications:G astroesophageal reflux disease with esophagitis without hemorrhage Take 1 Tablet by mouth in the morning. 30 Tablet 11 11/17/2023 Active LORazepam 0.5 MG Oral Tablet (Ativan)Indications:P anic attacks,TAWANA (generalized anxiety disorder) Take 1 Tablet by mouth 2 times a day as needed for Anxiety. 60 Tablet 2 12/30/2023 Active Additional Information Patient not taking.Reported on 04/27/2024 Allopurinol 100 MG Oral Tablet (Zyloprim)Indications :Acute idiopathic gout, unspecified site Take 1 Tablet [...] 4 Active Ondansetron HCl 4 MG Oral TabletIndications:Inderjit sea and vomiting in adult Take 1 Tablet by mouth every 6 hours as needed for Nausea. 10 Tablet 04/27/2024 Active documented as of this encounter (statuses as of 04/28/2024) Active Problems Problem Noted Date Diagnosed Date [...] 100 11/06/2011 Coronary atherosclerosis of [place] coronary yolanda ry 08/26/2011 S/P coronary artery stent placement 07/08/2011 Overview: RCA and circumflex Allergic rhinitis Adjustment disorder with depressed mood documented as of this encounter (statuses as of 04/28/2024) Resolved Problems Problem Noted Date Diagnosed Date [...] as of this encounter (statuses as of 04/28/2024) Immunizations Name Administration Dates Next Due COVID-19 [...] (15 years old or older) No 01/09/20 Cognitive Status Response Date of Assessm ent Because of a physical, menta l, or emotional condition, do you have serious difficulty concentrating, remembering, or making decisions? (5 years old or older) No 01/08/2017 documented as of this encounter Plan of Treatment Upcoming Encounters Date Type Department Care Team (Late st Contact Info) Description 04/29/2024 1:00 PM EDT Office Visit Family Practice [facility] [address] [place] [id number] Jannette Noyola PA-C [address] [place] [phone] 07/27/2024 1:00 PM EST Office Visit Family Practice [facility] [place] [address] [facility] [place], [place] [address] Bruce Sheridan DO [address] [facility] [place] [address] Health Maintenance Due Date Last Done Comments [...] this encounter Medical Devices Implanted Type Area Student Advisor Device Identifier Shelf Expiration Date Model / Serial / Lot Alloderm 2x4cm [id number] ( 8 Units ) - [id number] Implanted:Qty : 8 on 01/08/2017 by Wei Jurado MD at OR [facility] Tissue - Human N/A: Abdomen LIFE CELL ROXANA 09/11/2018 [id number] / / [id number] documented as of this encounter Procedures Procedure Name Priority Date/Time Associated Diagnosis Comments VASC DUPLEX VENOUS LE UNILAT STAT 04/27/2024 3:56 PM EDT Lower extremity edema Pain of left lower extremity documented in this encounter Results * VASC DUPLEX VENOUS LE UNILAT (04/27/2024 3:56 PM EDT) Anatomical Region Laterality Modality Lower Extremity, Vascular Ultras ound Impressions 04/27/2024 4:01 PM EDT : Left lower extremity with no evidence of acute deep venous thrombosis. 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 Narrative 04/27/2024 4:01 PM EDT VASCULAR LAB RESULTS DATE OF EXAM: 04/27/24 PRESENTING CONDITIONS: Pain in left leg; foot swelling Immediately before proceeding with the vascular lab procedure reported below, the identity of the patient, the correct exam and the correct procedural site were verified. PHYSICIAN REPORT: Lower Extremity Venous Duplex Examination Color flow Doppler, spectral analysis, and transducer compression techniques were applied during this ultrasound image examination. LEFT LOWER EXTREMITY On duplex examination, the left common femoral vein, the sapheno-femoral junction, the femoral vein in the thigh, and popliteal vein are all free of internal echoes and demonstrate normal transducer compressibility during rivera scale imaging and normal respiratory and augmentation response during Doppler interrogation. The posterior tibial veins and peroneal veins demonstrate no evidence of thrombosis. The contralateral common femoral vein is patent and free of internal echoes. Dary Villaseñor PA-C RAD VASCULAR documented in this encounter Advance Directives * [...] and were consensually agreed upon. Care Teams Director Compliance Relationship Specialty Start Date End Date Bruce Sheridan DO [address] [facility] [place] [address] PCP - General Family Medicine 04/07/24 documented as of this encounter
--- OUTSIDE RECORDS SUMMARY | 2024-09-03 02:54 | External Medical Summary | Summary of Care ---
Author Name Unknown Organization [facility] Address [address] [facility] [address] Phone [phone] Care Team Providers Care Performance Improvement Coordinator Name Role Phone Bruce Sheridan DO Primary Care Provider [phone] Reason for Visit * Reason Onset Date Comments Home Health 04/29/2024 Encounter Details Date Type Department Care Team (Late st Contact Info) Description 04/29/2024 [facility] [address] [facility] [place] [address] Bruce Sheridan DO [address] [facility] [place] [address] Home Health Allergies Active Allergy Reactions Criticality Noted Date Comments Lisinopril Cough 11/06/2011 Procaine Edema face/lips/tongue,Itc maxim High 11/26/2016 Penicillins Hives High 08/06/1999 Hives down throat Sulfa Antibiotics Hives High 08/06/1999 Hives down throat Hydrocodone-Acetaminoph en Nausea/vomiting Low 08/23/2010 documented as of this encounter (statuses as of 05/07/2024) Medications Medication Sig Dispensed Refills Start Date End Date Status ASPIRIN EC 81 MG PO TBECIndications:Garcia ry atherosclerosis of [place] coronary artery,S/P coronary artery stent placement 1 [...] as of this encounter (statuses as of 05/07/2024) Active Problems Problem Noted Date Diagnosed Date Recurrent major depressive disorder, in partial remission 10/22/2022 Major depressive disorder, recurrent, unspecifie d 10/24/2020 Inflammation of right sacroiliac joint 9 Sacroiliitis 09/07/2018 Gastroesophageal reflux disease without esophagi tis 09/07/2018 TAWANA (generalized anxiety disorder) 09/07/2018 S/P laparoscopic fundoplication 01/09/2017 S/P repair of paraesophageal hernia 01/09/2017 History of DE (myocardial infarction) 10/18/2016 History of colon polyps [...] LDL below 100 11/06/2011 Coronary atherosclerosis of [place] coronary yolanda ry 08/26/2011 S/P coronary artery stent placement 07/08/2011 Overview: RCA and circumflex Allergic rhinitis Adjustment disorder with depressed mood documented as of this encounter (statuses as of 05/07/2024) Resolved Problems Problem Noted Date Diagnosed Date [...] Malaise and fatigue 08/26/2011 02/06/20 17 Acute DE 07/08/2011 10/18/2016 Closed fracture of part of u pper end of humerus 08/26/2010 02/05/2017 Benign neoplasm of cerebral meninges 05/14/2009 05/27/2023 Overview: asymptomatic seen on MRI Uterine leiomyoma 09/07/2018 Need for prophylactic hormon e replacement therapy (postmenopausal) 09/07/2018 Dermatitis 02/05/2017 documented as of this encounter (statuses as of 05/07/2024) Immunizations Name Administration Dates Next Due COVID-19 [...] Angel LPN - 05/07/2024 11:50 AM EDT JUNGI. * Telephone Encounter - Carley Horowitz OSA - 04/29/2024 6:11 PM EDT Maicol has called in with [facility] states the pt. Was supposed to be [...] she states the pt. Was seen in [facility] was told she has a mayo cyst [...] Description 06/03/2024 5:20 PM EST Office Visit [facility] [address] [place] [address] Jannette Noyola PA-C [address] [place] [phone] 07/27/2024 1:00 PM EST Office Visit [facility] [address] [place] [address] Bruce Sheridan DO [address] [place] [phone] Health Maintenance Due Date Last Done Comments [...] this encounter Medical Devices Implanted Type Area Comb Winder Device Identifier Shelf Expiration Date Model / Serial / Lot Alloderm 2x4cm [id number] ( 8 Units ) - [id number] Implanted:Qty : 8 on 01/08/2017 by Wei Jurado MD at OR [facility] Tissue - Human N/A: Abdomen LIFE CELL ROXANA 09/11/2018 [id number] / / [id number] documented as of this encounter Advance Directives [...] and were consensually agreed upon. Care Teams Performance Improvement Coordinator Relationship Specialty Start Date End Date Bruce Sheridan DO [address] [place] [address] [place], [place] [address] PCP - General Family Medicine 04/07/24 documented as of this encounter
--- OUTSIDE RECORDS SUMMARY | 2024-09-03 02:54 | External Medical Summary | Summary of Care ---
Author Name Unknown Organization [facility] Address [address] [place] [place] [address] Phone [phone] Care Team Providers Care Rig Mechanic Name Role Phone Bruce Sheridan DO Primary Care Provider [phone] Reason for Visit * Reason Onset Date Comments Advice 04/22/2024 Encounter Details Date Type Department Care Team (Late st Contact Info) Description 04/22/2024 [facility] [address] [facility] [place] [address] Bruce Sheridan DO 200 [facility] [place] [address] Advice Allergies Active Allergy Reactions Criticality Noted [...] 81 MG PO TBECIndications:Garcia ry atherosclerosis of [place] coronary artery,S/P coronary artery stent placement 1 [...] LDL below 100 11/06/2011 Coronary atherosclerosis of [place] coronary yolanda ry 08/26/2011 S/P coronary artery [...] encounter Miscellaneous Notes * Telephone Encounter - Maia Gagnon LPN - 04/23/2024 2:40 PM EDT Ector from [facility] calling: He stated that they received a referral for patient for HH services. They attempted to contact patient and family on 04/21, 04/22 and 04/23 but have not received a response. They are not going to admit patient into their care. If PCP would like patient to receive HH services a new referral would need placed. FYI to PCP * Telephone Encounter - Belkis Roberts OSA - 04/23/2024 2:38 PM EDT Ector with [facility] is calling to speak with a nurse about an update on the patient Call transferred to nurse Carvalho * Telephone Encounter - Keisha Beasley RN - 04/22/2024 4:02 PM EDT Called [facility] and gave ok to add patient for home visit tomorrow. * Telephone Encounter - Carla Lyon OSA - 04/22/2024 11:40 AM EDT [facility] calling to get permission from provider that patient could have a home visit tomorrow Tuesday, April 23, 2024 please call for approval documented in this encounter Plan of Treatment Upcoming Encounters Date Type Department Care Team (Late st Contact Info) Description 04/26/2024 12:00 PM EDT Office Visit [facility] [place] [address] [place] [address] Jannette Noyola PA-C [address] [place] [address] [phone] 07/27/2024 1:00 PM EST Office Visit [facility] [place] [address] [place] [address] [address] Bruce Sheridan, DO [address] [place] [address] [address] Health Maintenance Due Date Last Done Comments [...] this encounter Medical Devices Implanted Type Area Sports Anchor Device Identifier Shelf Expiration Date Model / Serial / Lot Alloderm 2x4cm [id number] ( 8 Units ) - [id number] Implanted:Qty : 8 on 01/08/2017 by Wei Jurado MD at [place] [facility] [place] Tissue - Human N/A: Abdomen LIFE CELL ROXANA 09/11/2018 [id number] / / [id number] documented as of this encounter Advance Directives [...] and were consensually agreed upon. Care Teams Rig Mechanic Relationship Specialty Start Date End Date Bruce Sheridan DO [address] [place] [address] PCP - General Family Medicine 04/07/24 documented as of this encounter
--- OUTSIDE RECORDS SUMMARY | 2024-09-03 02:54 | External Medical Summary | Summary of Care ---
Author Name Unknown Organization [facility] Address [address] [facility] [place] [address] Phone [phone] Care Team Providers Care Director Of Catering Sales Name Role Phone Bruce Sheridan DO Primary Care Provider [phone] Reason for Visit * Reason Onset Date Comments Advice 04/22/2024 Encounter Details Date Type Department Care Team (Late st Contact Info) Description 04/22/2024 [facility] [address] [facility] [place] [address] Bruce Sheridan DO 200 [facility] [place] [address] Advice Allergies Active Allergy Reactions Criticality Noted [...] 81 MG PO TBECIndications:Garcia ry atherosclerosis of [place] coronary artery,S/P coronary artery stent placement 1 [...] repair of paraesophageal hernia 01/09/2017 History of UT (myocardial infarction) 10/18/2016 History of colon polyps [...] LDL below 100 11/06/2011 Coronary atherosclerosis of [place] coronary yolanda ry 08/26/2011 S/P coronary artery [...] Malaise and fatigue 08/26/2011 02/06/20 17 Acute UT 07/08/2011 10/18/2016 Closed fracture of part of [...] Miscellaneous Notes * Telephone Encounter - Maia Gagnon, RADHA - 04/23/2024 2:48 PM EDT Ector, [facility] calling back, He stated that a couple minutes after hanging up he heard back from the family. They are going to admit patient to HH services and have a tentative start of care date for this Friday04/25/2024. * Telephone Encounter - Maia Gagnon LPN - 04/23/2024 2:40 PM EDT Ector from [facility] calling: He stated that [...] - 04/23/2024 2:38 PM EDT Ector with [facility] is calling to speak with a nurse about an update on the patient Call transferred to nurse Carvalho * Telephone Encounter - Keisha Beasley RN - 04/22/2024 4:02 PM EDT Called [facility] and gave ok to add patient for home visit tomorrow. * Telephone Encounter - Carla Lyon OSA - 04/22/2024 11:40 AM EDT [facility] calling to get permission from provider that patient could have a home visit tomorrow Tuesday, April 23, 2024 please call for approval documented in this encounter Plan of Treatment Upcoming Encounters Date Type Department Care Team (Late st Contact Info) Description 04/26/2024 12:00 PM EDT Office Visit Family Practice [facility] [place] [address] [place] [address] Jannette Noyola PA-C 200 [facility] [place] [address] 07/27/2024 1:00 PM EST Office Visit Family Practice [facility] [place] [address] [place] [address] Bruce Sheridan DO 200 [facility] [place] [address] Health Maintenance Due Date Last Done Comments [...] this encounter Medical Devices Implanted Type Area Technical Solutions Consultant Device Identifier Shelf Expiration Date Model / Serial / Lot Alloderm 2x4cm [id number] ( 8 Units ) - [id number] Implanted:Qty : 8 on 01/08/2017 [place] Jurado [place] [facility] [place] - Human N/A: Abdomen LIFE CELL ROXANA 09/11/2018 [id number] / / [id number] documented as of this encounter Advance Directives [...] were consensually agreed upon. Care Teams Director Of Catering Sales Relationship Specialty Start Date End Date Bruce Sheridan DO 200 [facility] [place] [address] PCP - General Family Medicine 04/07/24 documented as of this encounter
--- OUTSIDE RECORDS SUMMARY | 2024-09-03 02:54 | External Medical Summary | Summary of Care ---
Author Name Unknown Organization [facility] Address [address] [facility] [place] [place] [address] Phone [phone] Care Team Providers Care Bank Courier Name Role Phone Bruce Sheridan DO Primary Care Provider [phone] Reason for Visit * Reason Onset Date Comments Advice 04/22/2024 Encounter Details Date Type Department Care Team (Late st Contact Info) Description 04/22/2024 [facility] [place] [address] Bruce Sheridan DO 200 [facility] [place] [address] Advice Allergies Active Allergy Reactions Criticality Noted Date Comments Lisinopril Cough 11/06/2011 Procaine Edema face/lips/tongue,Itc maxim High 11/26/2016 Penicillins Hives High 08/06/1999 Hives down throat Sulfa Antibiotics Hives High 08/06/1999 Hives down throat Hydrocodone-Acetaminoph en Nausea/vomiting Low 08/23/2010 documented as of this encounter (statuses as of 04/22/2024) Medications Medication Sig Dispensed Refills Start Date End Date Status ASPIRIN EC 81 MG PO TBECIndications:Garcia ry atherosclerosis of [place] coronary artery,S/P coronary artery stent placement 1 [...] LORazepam 0.5 MG Oral Tablet (Ativan)Indications:Pa suzi attacks,TAWNAA (generalized anxiety disorder) Take 1 Tablet by [...] as of this encounter (statuses as of 04/22/2024) Active Problems Problem Noted Date Diagnosed Date [...] LDL below 100 11/06/2011 Coronary atherosclerosis of [place] coronary yolanda ry 08/26/2011 S/P coronary artery stent placement 07/08/2011 Overview: RCA and circumflex Allergic rhinitis Adjustment disorder with depressed mood documented as of this encounter (statuses as of 04/22/2024) Resolved Problems Problem Noted Date Diagnosed Date [...] as of this encounter (statuses as of 04/22/2024) Immunizations Name Administration Dates Next Due COVID-19 [...] encounter Miscellaneous Notes * Telephone Encounter - Keisha Beasley RN - 04/22/2024 4:02 PM EDT Called [facility] and gave ok to add patient for home visit tomorrow. * Telephone Encounter - Carla Lyon OSA - 04/22/2024 11:40 AM EDT [place] calling to get permission from provider that patient could have a home visit tomorrow Tuesday, April 23, 2024 please call for approval documented in this encounter Plan of Treatment Upcoming Encounters Date Type Department Care Team (Late st Contact Info) Description 04/26/2024 12:00 PM EDT Office Visit [facility] [address] [place], [place] [address] Jannette Noyola PA-C [address] [place] [address] 07/27/2024 1:00 PM EST Office Visit [facility] [address] [place] [id number] Bruce Sheridan DO 200 [facility] [place] [phone] Health Maintenance Due Date Last Done Comments [...] this encounter Medical Devices Implanted Type Area Electric Installer Device Identifier Shelf Expiration Date Model / Serial / Lot Alloderm 2x4cm [id number] ( 8 Units ) - [id number] Implanted:Qty : 8 on 01/08/2017 by Wei Jurado MD [place] [facility] [place] - Human N/A: Abdomen LIFE CELL ROXANA 09/11/2018 [id number] / / [id number] documented as of this encounter Advance Directives [...] and were consensually agreed upon. Care Teams Bank Courier Relationship Specialty Start Date End Date Bruce Sheridan DO 200 [facility] [place], [place] [address] PCP - General Family Medicine 04/07/24 documented as of this encounter
--- OUTSIDE RECORDS SUMMARY | 2024-09-03 02:54 | External Medical Summary | Summary of Care ---
Author Name Unknown Organization [facility] Address [address] [facility] [address] Phone [phone] Care Team Providers Care Orthopedic Tech Name Role Phone Bruce Sheridan DO Primary Care Provider [phone] Reason for Visit * Reason Onset Date Comments Home Health 04/29/2024 Encounter Details Date Type Department Care Team (Late st Contact Info) Description 04/29/2024 [facility]phone [facility] [address] [facility] [place] [address] Bruce Sheridan DO [address] [facility] [place] [address] Home Health Allergies Active Allergy Reactions Criticality [...] 81 MG PO TBECIndications:Garcia ry atherosclerosis of [place] coronary artery,S/P coronary artery stent placement 1 [...] repair of paraesophageal hernia 01/09/2017 History of ID (myocardial infarction) 10/18/2016 History of colon polyps [...] LDL below 100 11/06/2011 Coronary atherosclerosis of [place] coronary yolanda ry 08/26/2011 S/P coronary artery [...] Malaise and fatigue 08/26/2011 02/06/20 17 Acute ID 07/08/2011 10/18/2016 Closed fracture of part of [...] PM EDT Maicol has called in with [facility] states the pt. Was supposed to [...] she states the pt. Was seen in [facility] was told she has a mayo [...] Description 06/03/2024 5:20 PM EST Office Visit [facility] [address] [place] [address] Jannette Noyola PA-C [address] [place] [address] 07/27/2024 1:00 PM EST Office Visit [facility] [address] [place] [address] Bruce Sheridan DO [address] [place] [address] Health Maintenance Due Date Last Done Comments [...] this encounter Medical Devices Implanted Type Area Radio Mechanic Apprentice Device Identifier Shelf Expiration Date Model / Serial / Lot Alloderm 2x4cm [id number] ( 8 Units ) - [id number] Implanted:Qty : 8 on 01/08/2017 by Wei Jurado [place] [facility] [place] Tissue - Human N/A: Abdomen LIFE CELL ROXANA 09/11/2018 [id number] / / [id number] documented as of this encounter Advance Directives [...] and were consensually agreed upon. Care Teams Orthopedic Tech Relationship Specialty Start Date End Date Bruce Sheridan DO [address] [place] [address] [place], [place] [address] PCP - General Family Medicine 04/07/24 documented as of this encounter
--- OUTSIDE RECORDS SUMMARY | 2024-09-03 02:55 | External Medical Summary | Summary of Care ---
Author Name Unknown Organization [facility] Address [address] [place] [address] Phone [phone] Care Team Providers Care Leadite Man Name Role Phone DesmondBruce roy Primary Care Provider [phone] Reason for Visit * Reason Onset Date Comments Med Request 04/05/202404/09 automated a nswering machine came on and said person is unavailable Encounter Details Date Type Department Care Team (Late st Contact Info) Description 04/05/2024 Telephone Family Practice [facility] [place] [address] [facility] [place] [address] Kari Kim MD 200 [place] [address] Med Request (04/09 automated answering mach... Allergies Active Allergy Reactions Criticality Noted Date Comments Lisinopril Cough 11/06/2011 Procaine Edema face/lips/tongue,Itc maxim High 11/26/2016 Penicillins Hives High 08/06/1999 Hives down throat Sulfa Antibiotics Hives High 08/06/1999 Hives down throat Hydrocodone-Acetaminoph en Nausea/vomiting Low 08/23/2010 documented as of this encounter (statuses as of 04/14/2024) Medications Medication Sig Dispensed Refills Start Date End Date Status ASPIRIN EC 81 MG PO TBECIndications:Garcia ry atherosclerosis of [place] coronary artery,S/P coronary artery stent placement 1 [...] as of this encounter (statuses as of 04/14/2024) Active Problems Problem Noted Date Diagnosed Date [...] LDL below 100 11/06/2011 Coronary atherosclerosis of [place] coronary yolanda ry 08/26/2011 S/P coronary artery stent placement 07/08/2011 Overview: RCA and circumflex Allergic rhinitis Adjustment disorder with depressed mood documented as of this encounter (statuses as of 04/14/2024) Resolved Problems Problem Noted Date Diagnosed Date [...] as of this encounter (statuses as of 04/14/2024) Immunizations Name Administration Dates Next Due COVID-19 [...] Encounter - Felicia Del Angel LPN - 04/14/2024 5:34 PM EDT See message dated 04/13/24. I spoke with patient, she obtained Paxlovid from another provider at some point. She was scheduled to see Dr. Montaño today for follow up but cancelled that visit. * Telephone Encounter - Shanti Flower LPN - 2024 1:21 PM EDT Called patient, voicemail message came on and said that patient was unavailable. * Telephone Encounter - Rupa De León CCMA - 2024 11:10 AM EDT Called patient, an automated answering machine came on and said "this person is unavailable could not leave message" * Telephone Encounter - Kari Kim MD - 04/07/2024 7:21 PM EDT Unfortunately patient does not qualify for Paxlovid if symptoms began last Friday. She would have needed to start medication by Friday. In addition Paxlovid will not help her improve more quickly or necessarily feel better, it only prevents infection from becoming severe (requiring hospitalization). If she has been improving even slowly I would recommend continuing supportive care. * Telephone Encounter - Swathi Ingram CPhT - 04/06/2024 6:38 PM EDT Pt's daughter calling to check on status of medication request. Called nurse line, no answer. Thank you, Swathi Ingram CPhT II Display Director [facility] 04/06/2024, 6:39 PM * Telephone Encounter - Riky Rivas jack frame tender - 04/06/2024 3:27 PM EDT Pt demanding to speak with office. Transferring.NO answer. Pt very upset that DR has not prescribed anything for her. Wants a call back NOW GAYE. Call pt at [phone]. Thank You, Riky Rivas [facility] Education Analyst II [facility] 04/06/2024, 3:27 PM * Telephone Encounter - Kylah Aly CPhT - 04/06/2024 3:24 PM EDT Patient calling to check on status of rx request for testing positive with COVID. Pt wanted to speak with a nurse. Thank you, Kylah Aly Education Analyst [facility]) 04/06/2024, 3:24 PM * Telephone Encounter - Ariadna Be OSA - 04/06/2024 2:08 PM EDT Patient calling in to check on the status of previous message. Patient Called within 48 hour timeframe. Reminded patient of 48 hour turn-around time. * Telephone Encounter - Keisha Starr OSA - 04/06/2024 8:13 AM EDT Pts daughter called checking on the status of the Covid treatment. Pts daughter reports that the pts symptoms started Friday. Pt has had a cough, post nasal drip, nausea, body aches, tried. Pts symptoms are improving but very little so the pts daughter thinks that she needs something to "get herover the hump". Please advise. * Telephone Encounter - Swathi Ingram CPhT - 04/05/2024 4:47 PM EDT Pt's daughter stated symptoms on Friday. Pt uses [id number] [address] [place] [address] Thank you, Swathi Ingram CPhT II Display Director [facility] ([facility]) 04/05/2024, 4:48 PM * Telephone Encounter - Felicia Del Angel LPN - 04/05/2024 1:17 PM EDT Called patient, no answer and voicemail is full. If she calls back, please ask when her symptoms started and which pharmacy she'd like to use if medication is prescribed. Thank you. * Telephone Encounter - Leatha Hay PHARM Tech - 04/05/2024 12:05 PM EDT Pt calling with complaints of testing positive for covid and is requesting a medication be prescribed. Pt did not want to schedule an appointment at this time. Call details was not completed because pt states she was instructed to call. Please advise. Thank you, Yves Hay, Education Analyst Event Lighting Specialist 1 [facility] ([facility]) (Formerly Telepharm[facility]) 04/05/2024,12:05 PM documented in this encounter Plan of Treatment Upcoming Encounters Date Type Department Care Team (Late st Contact Info) Description 07/27/2024 1:00 PM EST Office Visit Family [facility] 200 [place] [address] Bruce Sheridan, [address] [place] [address] Health Maintenance Due Date Last Done Comments [...] this encounter Medical Devices Implanted Type Area Room Manager Device Identifier Shelf Expiration Date Model / Serial / Lot Alloderm 2x4cm [id number] ( 8 Units ) - [id number] Implanted:Qty : 8 on 01/08/2017 by Wei Jurado [place] [facility] [place] Tissue - Human N/A: Abdomen LIFE CELL ROXANA 09/11/2018 [id number] / / [id number] documented as of this encounter Advance Directives [...] and were consensually agreed upon. Care Teams Leadite Man Relationship Specialty Start Date End Date Bruce Sheridan DO [address] [place] [address] PCP - General Family Medicine 04/07/24 documented as of this encounter
--- OUTSIDE RECORDS SUMMARY | 2024-09-03 02:55 | External Medical Summary | Summary of Care ---
Author Name Unknown Organization [facility] Address [address] [facility] [place] [address] Phone [phone] Care Team Providers Care Bag Bailer Name Role Phone DesmondBruce roy Primary Care Provider [phone] Reason for Visit * Reason Onset Date Comments Hospital Follow-Up 04/21/2024 [facility] call [facility] 04/20 Encounter Details Date Type Department Care Team (Late st Contact Info) Description 04/21/2024 Telephone Ancillary State Brian Barroso [address] [place] [address] [place], RN Hospital Follow-Up ([facility] call [facility] 04/20) Allergies Active Allergy Reactions Criticality Noted Date [...] 81 MG PO TBECIndications:Garcia ry atherosclerosis of [place] coronary artery,S/P coronary artery stent placement 1 [...] LDL below 100 11/06/2011 Coronary atherosclerosis of [place] coronary yolanda ry 08/26/2011 S/P coronary artery [...] encounter Miscellaneous Notes * Telephone Encounter - [place] RN - 04/22/2024 11:38 AM EDT Attempted Phone Call Second Attempt Call Outcome Left Voicemail/Message * Telephone Encounter - [place] RN - 04/21/2024 2:01 PM EDT Transitions of Care Note Reason for Referral:Recent Admission Phone visit for follow up: [facility] Admitted to: [facility], Date: 04/14 Discharged to: home, Date: 04/20 Diagnosis driving hospitalization: COVKARLA Cdiff Attempted Phone Call First Attempt Call Outcome Left Voicemail/Message If pt calls back and reaches the contact center please transfer her to me at [phone]. Thank you. documented in this encounter Plan of Treatment Upcoming Encounters Date Type Department Care Team (Late st Contact Info) Description 04/26/2024 12:00 PM EDT Office Visit [facility] [place] 200 [facility] [place] [address] Jannette Noyola PA-C 200 [facility] [place] [address] 07/27/2024 1:00 PM EST Office Visit [facility] [place] [address] [place] [address] Bruce Sheridan DO 200 [facility] [place] [address] Health Maintenance Due Date Last Done Comments [...] this encounter Medical Devices Implanted Type Area Electrician'S Assistant Device Identifier Shelf Expiration Date Model / Serial / Lot Alloderm 2x4cm [id number] ( 8 Units ) - [id number] Implanted:Qty : 8 on 01/08/2017 by Wei Jurado MD at OR [facility] Tissue - Human N/A: Abdomen LIFE CELL ROXANA 09/11/2018 [id number] / / [id number] documented as of this encounter Advance Directives [...] and were consensually agreed upon. Care Teams Bag Bailer Relationship Specialty Start Date End Date Bruce Sheridan DO [address] [place] [address] PCP - General Family Medicine 04/07/24 documented as of this encounter
[2024-09-03] MEDS: PROMETHAZINE 6.25 MG/50.25 ML BAG IV PRN (06:30)
[2024-09-03] MEDS: PANTOprazole 40 MG/10 ML SYR IV SCH (08:01)
[2024-09-03] MEDS: allopurinoL 100 MG TAB PO SCH (08:01)
[2024-09-03] MEDS: VIBEGRON 75 MG TAB PO SCH (08:01)
[2024-09-03 08:20] LABS: Basophils # (auto) 0.06 K/uL (0.00-0.20); Basophils % (auto) 0.5 %; Eosinophils # (auto) 0.09 K/uL (0.00-0.50); Eosinophils % (auto) 0.8 %; Hemoglobin 8.6 g/dl (12.0-16.0); Immature Granulocytes # (auto) 0.07 K/uL (0.01-0.20); Immature Granulocytes % (auto) 0.6 %; Lymphocytes # (auto) 1.46 K/uL (1.20-3.40); Lymphocytes % (auto) 13.2 %; Mean Corpuscular Hemoglobin 27.9 pg (25.0-34.0); Mean Corpuscular Hgb Conc 33.1 g/dL (32.0-36.0); Mean Corpuscular Volume 84.4 fL (80.0-100.0); Monocytes # (auto) 0.73 K/uL (0.11-0.59); Monocytes % (auto) 6.6 %; Neutrophils # (auto) 8.65 K/uL (1.40-6.50); Neutrophils % (auto) 78.3 %; Platelet Count 299 K/uL (130-400); RDW Standard Deviation 51.6 fL (36.4-46.3); Red Blood Count 3.08 M/uL (4.20-5.40); White Blood Count 11.06 K/ul (4.8-10.8)
[2024-09-03 08:41] LABS: Estimated Average Glucose 114 mg/dl; Hemoglobin A1C 5.6 % (4.5-5.6)
[2024-09-03 08:44] LABS: BUN Creatinine Ratio 42.2 (10-20); Calcium 7.8 mg/dl (8.6-10.3); Creatinine Clr Calc Pharmacy 27.5 ml/min; Potassium 4.6 mmol/L (3.5-5.1)
--- NOTE | 2024-09-03 10:32 | Gastrointestinal Consultation ---
Date of Consultation September 03, 2024 Assessment & Plan (1) Anemia: (2) Heme positive stool: (3) Diverticulitis: Plan Patient admitted with diverticulitis. she had recent episode of this treated with cipro and flagyl but symptoms returned. she also reports black stools while treating the diverticulitis. hgb dropped to 6.3 which was much lower from last labs in April 2024. Also had reportedly had hgb 12 in July 2024. - recommend antibiotics for diverticulitis. - will plan to set up an EGD to further evaluate possible GIB. - continue with protonix 40mg IV BID. Supervising Physician Co-Signing Physician Notes old female who had presented to the ED on 09/02 with complaints of feeling weak and ill. She was recently diagnosed with diverticulitis which was treated with a cipro/flagyl and felt like the diverticulitis was improving, but after stopping antibiotics, her symptoms returned with abdominal discomfort. She also notes that during the time she was on antibiotics that she was noticing dark stools. she admits to regular aspirin use as well as occasional alieve. no nausea, vomiting, reflux. In the ED, her stools were noted to be brown but heme positive. hgb on admission was 6.3 which was down from 10.8. she also has nausea but reports of no left lower quadrant tenderness. EGD to rule out peptic ulcer disease gastritis esophagitis or duodenal ulcer. Clinically she is not acting like she has acute sigmoid diverticulitis. It is reasonable to give her 5 days of antibiotics given the CT findings. N.p.o. for now EGD today. History of Present Illness Reason for Consultation: GIB / recurrent diverticulitis Requesting Physician: Gokul Friend MD Attending Physician: Francisco Burrell MD History of Present Illness Patient is an 84 year odl female who had presented to the ED on 09/02 with complaints of feeling weak and ill. She was recently diagnosed with diverticulitis which was treated with a cipro/flagyl and felt like the diverticulitis was improving, but after stopping antibiotics, her symptoms returned with abdominal discomfort. She also notes that during the time she was on antibiotics that she was noticing dark stools. she admits to regular aspirin use as well as occasional aleve. no nausea, vomiting, reflux. In the ED, her stools were noted to be brown but heme positive. hgb on admission was 6.3 which was down from 10.8 in April 2024. BUN/creatinine were also elevated at 59/1.6. she does feel like abdominal pain has somewhat improved since admission. CT 09/03/24 Uncomplicated acute diverticulitis of the proximal to mid sigmoid colon. 2. No free air or abscess Allergies Allergy/AdvReac Type Severity Reaction Status Date / Time hydrocodone Allergy Unknown Confusion Verified 09/02/24 22:36 Macrolide Antibiotics Allergy Unknown ALLERGIC Verified 09/02/24 22:36 TO "MYCINS" Penicillins Allergy Unknown HIVES Verified 09/02/24 22:36 Sulfa (Sulfonamide Allergy Unknown HIVES Verified 09/02/24 22:36 Antibiotics) lisinopril AdvReac Unknown cough Verified 09/02/24 22:36 Home Medications Medication Instructions Recorded Confirmed Type aspirin 81 mg tablet,delayed 81 mg PO DAILY 11/08/20 09/02/24 History release (Prabha Low Dose Aspirin) nitroglycerin 0.4 mg sublingual 0.4 mg sublingual UD PRN Chest Pain 11/08/20 09/02/24 History tablet lorazepam 0.5 mg tablet 0.5 mg PO BID PRN Anxiety 05/14/23 09/02/24 History allopurinol 100 mg tablet 100 mg PO QAM 04/11/24 09/02/24 History cholecalciferol (vitamin D3) 1,250 1,250 mcg PO WK 04/11/24 09/02/24 History mcg (50,000 unit) capsule famotidine 40 mg tablet 40 mg PO QAM 04/11/24 09/02/24 History Myrbetriq 50 mg PO DAILY 09/03/24 09/03/24 History Patient History Medical History 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" CAD (coronary artery disease) "06/2011 - inferior STEMI s/p aspiration thrombectomy to LCX with 2 KAYY and KAYY to RCA" On 01/24/14 13:30 Oneida Arroyo wrote "[place] 06/2011, 2 KAYY to the circumflex, 1 KAYY to the RCA echo 11/2013 showed EF 60-65%, mild mitral regurgitation " Surgical History S/P repair of paraesophageal hernia S/P cholecystectomy History of oophorectomy, unilateral S/P anal fissurectomy Hx of tubal ligation H/O dilation and curettage Family History Father Heart disease Arthritis Mother Arthritis Social History Smoking Status: Never smoker Tobacco Type: Cigarettes Second Hand Exposure: No; Do You Dip or Chew Tobacco: No; Hx Alcohol Use: No Hx Substance Use: No Preferred Language: Serbian Communication Ability: Effective Skin Care Therapist Required: No Beliefs That Will Affect Care: None marital status: / Current Living Situation: Alone Feels Safe at Home: Yes Safety Concerns: Feels Safe At This Time Assistive Devices: Glasses Review of Systems Review of Systems: All systems reviewed & are unremarkable except as noted in HPI & below Physical Exam Constitutional: WD/WN, vitals as above Respiratory: normal respiratory effort, lungs clear to auscultation Cardiovascular: Rate/Rhythm: regular rate and regular rhythm Gastrointestinal (Abdomen): normal bowel sounds, soft, nontender, no hepatosplenomegaly Psychiatric: Orientation: alert and oriented x 3 Affect: euthymic affect Results & Data Vital Signs (Past 12 Hours) Vital Signs Temp Pulse Pulse Resp BP BP Pulse Ox 09/03/24 08:00 92 H 21 119/67 97 09/03/24 06:54 96 H 09/03/24 05:55 98.4 F 91 H 20 119/67 98 09/03/24 04:55 98.4 F 88 16 117/64 99 09/03/24 04:25 98.1 F 83 16 116/60 98 09/03/24 04:10 97.9 F 80 18 122/70 98 09/03/24 03:55 97.7 F 87 16 117/65 98 09/03/24 03:00 86 16 122/70 100 09/03/24 02:45 86 18 122/71 98 09/03/24 02:30 83 18 121/69 98 09/03/24 02:30 98.1 F 94 H 20 122/71 100 09/03/24 02:15 86 17 114/62 96 09/03/24 02:00 86 17 108/61 97 09/03/24 02:00 98.1 F 84 20 108/61 97 09/03/24 01:45 87 18 108/59 L 97 09/03/24 01:45 98.1 F 84 20 108/59 L 99 09/03/24 01:30 87 18 115/68 97 09/03/24 01:30 98.1 F 85 16 115/68 95 09/03/24 01:00 92 H 20 117/66 93 09/03/24 00:41 91 H 09/03/24 00:30 94 H 20 118/65 93 09/03/24 00:00 92 H 19 119/70 97 09/02/24 23:54 93 H 20 120/68 97 09/02/24 23:30 90 18 120/68 97 09/02/24 23:19 09/02/24 23:00 89 18 122/65 97 Pulse Ox O2 Del Method O2 Del Method 09/03/24 08:00 Room Air 09/03/24 06:54 09/03/24 05:55 09/03/24 04:55 09/03/24 04:25 09/03/24 04:10 09/03/24 03:55 09/03/24 03:00 09/03/24 02:45 09/03/24 02:30 09/03/24 02:30 09/03/24 02:15 09/03/24 02:00 09/03/24 02:00 09/03/24 01:45 09/03/24 01:45 09/03/24 01:30 09/03/24 01:30 09/03/24 01:00 09/03/24 00:41 09/03/24 00:30 09/03/24 00:00 09/02/24 23:54 Room Air 09/02/24 23:30 09/02/24 23:19 95 Room Air 09/02/24 23:00 Coding Level of Care Code 73860 INT INP/OBS CARE MIN Diagnoses Anemia D64.9 Anemia type: unspecified type Heme positive stool R19.5 Diverticulitis K57.92 (1) Anemia Anemia type: unspecified type Qualified Code(s): D64.9 - Anemia, unspecified
--- NOTE | 2024-09-03 12:46 | Electrocardiogram Report ---
Test Reason : Blood Pressure : */* mmHG Vent. Rate : 100 BPM Atrial Rate : 100 BPM P-R Int : 134 ms QRS Dur : 76 ms QT Int : 354 ms P-R-T Axes : 39 6 30 degrees QTcB Int : 456 ms Normal sinus rhythm Nonspecific ST abnormality When compared with ECG of 15-Apr-2024 07:41, Vent. rate has increased by 39 bpm Nonspecific T wave abnormality has replaced inverted T waves in Inferior leads Confirmed by Bennie Torrez ([id number]) on 09/03/2024 12:46:03 PM Referred By: REFERRED SELF Confirmed By: Bennie Torrez
--- NOTE | 2024-09-03 13:07 | Anesthesiology Consultation ---
Date of Service September 03, 2024 Assessment & Plan Chart Review Chart Review: Acceptable Risk for Surgery and Patient NOT seen in Pre Admission Testing Consults Requested none ASA ASA3 Proposed Anesthesia Anesthesia Type: MAC Risk / Benefits Reviewed With: PT / POA / Parent / Guardian, Accepts Plan and Informed Consent Obtained History Surgery Operation Date: 09/03/24 17:00 Proposed Procedures p Esophagogastroduodenoscopy Opal - Devaughn Joseph MD Height/Weight Height: 5 ft 3 in Weight: 59.5 kg Allergies Allergy/AdvReac Type Severity Reaction Status Date / Time hydrocodone Allergy Unknown Confusion Verified 09/02/24 22:36 Macrolide Antibiotics Allergy Unknown ALLERGIC Verified 09/02/24 22:36 TO "MYCINS" Penicillins Allergy Unknown HIVES Verified 09/02/24 22:36 Sulfa (Sulfonamide Allergy Unknown HIVES Verified 09/02/24 22:36 Antibiotics) lisinopril AdvReac Unknown cough Verified 09/02/24 22:36 Medications Home Medications Medication Instructions Recorded Confirmed Last Taken aspirin 81 mg tablet,delayed 81 mg PO DAILY 11/08/20 09/02/24 2 Weeks Ago release (Prabha Low Dose Aspirin) ~03/31/24 nitroglycerin 0.4 mg sublingual 0.4 mg sublingual UD PRN Chest Pain 11/08/20 09/02/24 Unknown tablet lorazepam 0.5 mg tablet 0.5 mg PO BID PRN Anxiety 05/14/23 09/02/24 04/12/24 allopurinol 100 mg tablet 100 mg PO QAM 04/11/24 09/02/24 2 Weeks Ago ~03/31/24 cholecalciferol (vitamin D3) 1,250 1,250 mcg PO WK 04/11/24 09/02/24 2 Weeks Ago mcg (50,000 unit) capsule ~03/31/24 famotidine 40 mg tablet 40 mg PO QAM 04/11/24 09/02/24 2 Weeks Ago ~03/31/24 Myrbetriq 50 mg PO DAILY 09/03/24 09/03/24 Unknown Active Medications Generic Name Dose Route Start Last Admin Trade Name Freq PRN Reason Stop Dose Admin Allopurinol 100 mg 09/03/24 09:00 09/03/24 08:01 Allopurinol 100 Mg Tab PO 10/03/24 08:59 100 mg QAM STAR Administration Pantoprazole Sodium 40 mg in 10 mls @ 5 mls/min 09/03/24 09:00 09/03/24 08:01 Protonix IV 10/03/24 08:59 5 mls/min BID STAR Administration Ertapenem 1,000 mg in 10 mls @ 2 mls/min 09/03/24 02:00 09/03/24 02:48 Invanz 1000mg IV 09/13/24 01:59 2 mls/min Q24H STAR Administration Promethazine HCl 6.25 mg in 50.25 mls @ 201 mls/hr 09/02/24 22:17 09/03/24 06:45 Phenergan IV 10/02/24 22:16 Infused Q6H PRN Infusion Nausea And Vomiting Vibegron 75 mg 09/03/24 09:00 09/03/24 08:01 Vibegron 75 Mg Tab PO 10/03/24 08:59 75 mg DAILY STAR Administration NPO Date Last Intake of Fluids: 09/03/24 Time Last Intake of Fluids: 07:00 Last Intake of Fluids Comment: ice chips Date Last Intake of Solids: 09/02/24 Time Last Intake of Solids: 07:00 Past Medical History Medical History 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" CAD (coronary artery disease) "06/2011 - inferior STEMI s/p aspiration thrombectomy to LCX with 2 KAYY and KAYY to RCA" On 01/24/14 13:30 Oneida Arroyo wrote "[place] 06/2011, 2 KAYY to the circumflex, 1 KAYY to the RCA echo 11/2013 showed EF 60-65%, mild mitral regurgitation " Exercise / Class Metabolic Activity II 4-5 Yardwork/Stairs/Walk up hill Past Family History Family History Father Heart disease Arthritis Mother Arthritis Past Surgical History Surgical History S/P repair of paraesophageal hernia S/P cholecystectomy History of oophorectomy, unilateral S/P anal fissurectomy Hx of tubal ligation H/O dilation and curettage Past Anesthesia History No Hx of Anesthesia Complications and No Family Hx of Anesthesia Complications History of PONV No Hx of PONV and No Hx of Motion Sickness Social History Smoking Status: Never smoker Do You Dip or Chew Tobacco: No Hx Alcohol Use: No Alcohol type: beer alcohol intake frequency: a few times a month Hx Substance Use: No substance use type: does not use Physical Exam Vital Signs Last Vital Signs Temp 36.6 C 09/03/24 13:05 Pulse 95 H 09/03/24 13:05 Resp 16 09/03/24 13:05 BP 131/82 09/03/24 13:05 Pulse Ox 99 09/03/24 13:05 O2 Del Method Room Air 09/03/24 13:05 ENMT Mouth: no dentition abnormality Thyromental Distance: > or= 3.5 Finger Breadths Mallampati Class: II Neck normal visual inspection Respiratory normal respiratory effort Auscultation: lungs clear to auscultation bilaterally Cardiovascular Rate/Rhythm: regular rate and regular rhythm Psychiatric Orientation: alert Testing Laboratory Results 09/03/24 07:44 09/03/24 07:44 Hemoglobin A1c 5.6 % (4.5-5.6) 09/02/24 18:20 Urine Color Yellow 09/02/24 22:38 Urine Appearance Clear (Clear) 09/02/24 22:38 Urine pH 5.0 (4.5-7.5) 09/02/24 22:38 Ur Specific [place] 1.014 (1.000-1.030) 09/02/24 22:38 Urine Protein Negative (Negative) 09/02/24 22:38 Urine Glucose (UA) Negative (Negative) 09/02/24 22:38 Urine Ketones Negative (Negative) 09/02/24 22:38 Urine Nitrite Negative (Negative) 09/02/24 22:38 Ur Leukocyte Esterase Negative (Negative) 09/02/24 22:38 Blood Type O Positive 09/02/24 22:39 Antibody Screen NEGATIVE 09/02/24 22:39
--- NOTE | 2024-09-03 14:06 | GI REPORT ---
[facility] Patient: KYLE SHERIFF : 1940 Sex at : Female Age: 84 Years Procedure: Upper GI endoscopy Date: 09/03/2024 Attending Physician: Devaughn Joseph MD Referring MD: Referred Self Indications: - Melena - Suspected upper gastrointestinal bleeding Medications: - Monitored Anesthesia Care Complications: - No immediate complications. Estimated Blood Loss: - Estimated blood loss: None. - Estimated blood loss was minimal. Procedure: - Prior to the procedure, a History and Physical was performed, and patient medications and allergies were reviewed. The patient's tolerance of previous anesthesia was also reviewed. The risks and benefits of the procedure and the sedation options and risks were discussed with the patient. All questions were answered, and informed consent was obtained. Prior Anticoagulants: The patient has taken no anticoagulant or antiplatelet agents. ASA Grade Assessment: III - A patient with severe systemic disease. After reviewing the risks and benefits, the patient was deemed in satisfactory condition to undergo the procedure. - The egd scope was introduced through the mouth and advanced to the third part of the duodenum. - The upper GI endoscopy was accomplished without difficulty. - The patient tolerated the procedure well. Findings: - A 2 cm hiatal hernia was present. - LA Grade B (one or more mucosal breaks greater than 5 mm, not extending between the tops of two mucosal folds) esophagitis with no bleeding was found at the gastroesophageal junction (on retroflexion). Biopsies were taken with a cold forceps for histology. Estimated blood loss was minimal. - Diffuse moderate inflammation characterized by erythema was found in the entire examined stomach. Biopsies were taken with a cold forceps for Helicobacter pylori testing. - Three non-bleeding superficial gastric ulcers with no stigmata of bleeding were found in the gastric antrum. The largest lesion was 5 mm in largest dimension. - The examined duodenum was normal. Impression: - 2 cm hiatal hernia. - LA Grade B reflux esophagitis with no bleeding. Rule out Harper's esophagus. Biopsied. - Acute gastritis, characterized by erythema. Biopsied. - Non-bleeding gastric ulcers with no stigmata of bleeding. - Normal examined duodenum. Recommendation: - Discharge patient to home (ambulatory). - Resume previous diet. - Continue present medications. - Await pathology results. - Return to primary care physician as previously scheduled. - Patient has a contact number available for emergencies. The signs and symptoms of potential delayed complications were discussed with the patient. Return to normal activities tomorrow. Written discharge instructions were provided to the patient. - Use Protonix (pantoprazole) 40 mg PO BID for 5 days. - then once daily for 3 months. f/up biopsies. - Can start clear liquid diet today. Empiric 5-7 day course for diverticulitis. GI will sign off, please call with questions. Procedure Code(s): - 47167, Esophagogastroduodenoscopy, flexible, transoral; with biopsy, single or multiple Diagnosis Code(s): - K92.1, Melena (includes Hematochezia) - K44.9, Diaphragmatic hernia without obstruction or gangrene - K21.00, Gastro-esophageal reflux disease with esophagitis, without bleeding - K29.00, Acute gastritis without bleeding - K25.9, Gastric ulcer, unspecified as acute or chronic, without hemorrhage or perforation CPT(R) - 2023 copyright [employer]. All Rights Reserved. The CPT codes, CCI edits and ICD codes generated are intended as suggestions and were generated based on input data. These codes are preliminary and upon certified nuclear medicine technologist review may be revised to meet current compliance and payer requirements. The provider is responsible for the final determination of appropriate codes, and modifiers. Devaughn Joseph MD This document has been electronically signed. Note Initiated:09/03/2024 Note Completed:09/03/2024 2:04 PM \\[id number]
--- NOTE | 2024-09-03 14:25 | Anesthesiology Progress Note ---
Date of Service September 03, 2024 Anesthesia Post Procedure Vital Signs Vital Signs: Temp Pulse Pulse Resp BP BP Pulse Ox 09/03/24 14:12 92 H 16 122/81 95 09/03/24 13:57 109 H 16 103/64 95 09/03/24 13:05 36.6 C 95 H 16 131/82 99 09/03/24 12:00 91 H 20 113/67 97 09/03/24 08:00 92 H 21 119/67 97 09/03/24 06:54 96 H 09/03/24 05:55 36.9 C 91 H 20 119/67 98 09/03/24 04:55 36.9 C 88 16 117/64 99 09/03/24 04:25 36.7 C 83 16 116/60 98 09/03/24 04:10 36.6 C 80 18 122/70 98 09/03/24 03:55 36.5 C 87 16 117/65 98 09/03/24 03:00 86 16 122/70 100 09/03/24 02:45 86 18 122/71 98 09/03/24 02:30 83 18 121/69 98 09/03/24 02:30 36.7 C 94 H 20 122/71 100 09/03/24 02:15 86 17 114/62 96 09/03/24 02:00 86 17 108/61 97 09/03/24 02:00 36.7 C 84 20 108/61 97 09/03/24 01:45 87 18 108/59 L 97 09/03/24 01:45 36.7 C 84 20 108/59 L 99 09/03/24 01:30 87 18 115/68 97 09/03/24 01:30 36.7 C 85 16 115/68 95 09/03/24 01:00 92 H 20 117/66 93 09/03/24 00:41 91 H 09/03/24 00:30 94 H 20 118/65 93 09/03/24 00:00 92 H 19 119/70 97 09/02/24 23:54 93 H 20 120/68 97 09/02/24 23:30 90 18 120/68 97 09/02/24 23:19 09/02/24 23:00 89 18 122/65 97 09/02/24 22:09 96 H 09/02/24 22:00 90 19 115/68 97 09/02/24 22:00 95 H 20 115/68 97 09/02/24 21:00 89 18 127/66 93 09/02/24 20:00 87 16 109/58 L 92 09/02/24 19:15 93 H 16 114/68 95 09/02/24 19:15 97 H 20 114/68 96 09/02/24 19:15 09/02/24 19:15 09/02/24 18:20 103 H 09/02/24 18:06 36 C L 58 L 18 91/62 L 96 Pulse Ox O2 Del Method O2 Del Method 09/03/24 14:12 Room Air 09/03/24 13:57 Room Air 09/03/24 13:05 Room Air 09/03/24 12:00 Room Air 09/03/24 08:00 Room Air 09/03/24 06:54 09/03/24 05:55 09/03/24 04:55 09/03/24 04:25 09/03/24 04:10 09/03/24 03:55 09/03/24 03:00 09/03/24 02:45 09/03/24 02:30 09/03/24 02:30 09/03/24 02:15 09/03/24 02:00 09/03/24 02:00 09/03/24 01:45 09/03/24 01:45 09/03/24 01:30 09/03/24 01:30 09/03/24 01:00 09/03/24 00:41 09/03/24 00:30 09/03/24 00:00 09/02/24 23:54 Room Air 09/02/24 23:30 09/02/24 23:19 95 Room Air 09/02/24 23:00 09/02/24 22:09 09/02/24 22:00 09/02/24 22:00 Room Air 09/02/24 21:00 09/02/24 20:00 09/02/24 19:15 09/02/24 19:15 Room Air 09/02/24 19:15 Room Air 09/02/24 19:15 Room Air 09/02/24 18:20 09/02/24 18:06 Room Air Transfer of Care Handoff Completed per policy Notes Mental Status: alert / awake / arousable Patient Amnestic to Procedure: Yes Nausea / Vomiting: adequately controlled Pain: adequately controlled Airway Patency, RR, SpO2: stable & adequate BP & HR: stable & adequate Hydration State: stable & adequate Anesthetic Complications: no major complications apparent
[2024-09-03] MEDS: PROPOFOL IV EMULSION 10 MG/ML 20 ML VIAL IV ONE (15:17)
[2024-09-03] MEDS: LIDOCAINE 2% 2 ML VIAL/AMP(20MG/ML) INFIL ONE (15:17)
[2024-09-03 15:25] LABS: A calco-baum cmplx NotReported Not Detected (NotDetected); Bact fragilis Not Reported Not Detected (NotDetected); Blood Culture Id Panel See PCR Comment (NotDetected); C auris Not Reported Not Detected (NotDetected); Calbicans Not Reported Not Detected (NotDetected); Candida glabrata Not Reported Not Detected (NotDetected); Candida krusei Not Reported Not Detected (NotDetected); Cneoformans/gatti Not Reported Not Detected (NotDetected); Cparapsilosis Not Reported Not Detected (NotDetected); E cloacae compx Not Reported Not Detected (NotDetected); Efaecalis Not Reported Not Detected (NotDetected); Efaecium Not Reported Not Detected (NotDetected); Enterobacterales Not Reported Not Detected (NotDetected); Escherichia coli Not Reported Not Detected (NotDetected); H influenzae Not Reported Not Detected (NotDetected); K aerogenes Not Reported Not Detected (NotDetected); Koxytoca Not Reported Not Detected (NotDetected); Kpneumoniae grp Not Reported Not Detected (NotDetected); Lmonocyt Not Reported Not Detected (NotDetected); N meningitidis Not Reported Not Detected (NotDetected); P aeruginosa Not Reported Not Detected (NotDetected); Proteus spp Not Reported Not Detected (NotDetected); Salmonella spp Not Reported Not Detected (NotDetected); Staph lugdunensis Not Reported Not Detected (NotDetected); Staph spp. Not Reported DETECTED (NotDetected); Staphaureus Not Reported Not Detected (NotDetected); Staphepi Not Reported DETECTED (NotDetected); Staphylococcus spp. DETECTED (NotDetected); Stenmaltophilia Not Reported Not Detected (NotDetected); Strep agal(GrpB) Not Reported Not Detected (NotDetected); Strep pneum Not Reported Not Detected (NotDetected); Strep pyog (GrpA) Not Reported Not Detected (NotDetected); Strep spp Not Reported Not Detected (NotDetected); mecAC Resistant Gene Not Detected (NotDetected)
[2024-09-03 15:29] LABS: Staphylococcus epidermidis DETECTED (NotDetected)
[2024-09-03 16:32] LABS: Hemoglobin 8.6 g/dl (12.0-16.0)
--- NOTE | 2024-09-03 16:45 | Hospitalist Progress Note ---
Date of Service September 03, 2024 Assessment & Plan (1) Severe sepsis: Plan: Severe sepsis SIRS plus lactic acidosis plus ARF Recurrent diverticulitis status post antibiotic Rx 09/03 Afebrile, blood pressure stable Lactic acidosis resolved Continue IV ertapenem GI on board Anemia secondary to intermittent GI bleed, normal baseline hemoglobin of 12 from outpatient blood work July 2024 Possible UGIB given account of one-time episode of melanotic stool passage at home, history of GERD status post surgery FOBT done by ED provider was positive. 09/03 Hemoglobin 6.2, 2 units of packed RBC ordered Currently 8.3 Repeat H&H at 4 PM Status post EGD: Positive Harper's esophagus, gastritis, gastric ulcers Continue Protonix IV twice daily Monitor closely Clear liquid diet CAD status post stent -- Hold aspirin for now hyperlipidemia, not on statin Rx prediabetes, hemoglobin A1c of 5.3 from 2022 colon cancer status post surgery urge incontinence, recently started on Myrbetriq past tobacco abuse DVT prophylaxis. SCDs Re: GI bleed Full code Admission and Anticipated Discharge Date Admission Date: September 02, 2024 Subjective Follow-up for acute diverticulitis, recurrence, melena, GI bleed, etc. Status post EGD Seen resting in bed, tired but awake and alert, in good spirits States she is having some nausea, and some lower abdominal cramping feels weak, some shortness of breath, no chest pain, palpitations, dizziness No other new symptoms Review of Systems Review of Systems: all noted and negative except for above Physical Exam Physical Exam: General- oriented x 3, not in distress, speaks in sentences with no effort or accessory muscle use Eyes- anicteric Neck- no JVD Lungs- clear breath sounds bilaterally, no rales/wheezes Heart- normal rate, regular rhythm; no murmurs Abdomen- normal bowel sounds, nondistended, soft, nontender Extremities- no pretibial edema, no calf tenderness Neuro- alert, oriented x 3; no gross focal neurologic deficits Skin- warm & dry Results & Data Results & Data Vital Signs (Past 12 Hours) Vital Signs Temp Pulse Pulse Resp BP BP Pulse Ox 09/03/24 15:00 36.5 C 93 H 20 111/75 97 09/03/24 14:27 90 16 123/77 97 09/03/24 14:12 92 H 16 122/81 95 09/03/24 13:57 109 H 16 103/64 95 09/03/24 13:05 36.6 C 95 H 16 131/82 99 09/03/24 12:00 91 H 20 113/67 97 09/03/24 08:00 92 H 21 119/67 97 09/03/24 06:54 96 H 09/03/24 05:55 36.9 C 91 H 20 119/67 98 09/03/24 04:55 36.9 C 88 16 117/64 99 O2 Del Method 09/03/24 15:00 Room Air 09/03/24 14:27 Room Air 09/03/24 14:12 Room Air 09/03/24 13:57 Room Air 09/03/24 13:05 Room Air 09/03/24 12:00 Room Air 09/03/24 08:00 Room Air 09/03/24 06:54 09/03/24 05:55 09/03/24 04:55 all noted and reviewed including below
[2024-09-03] MEDS: PROMETHAZINE 6.25 MG/50.25 ML BAG IV STA (20:18)
[2024-09-03 22:56] LABS: Hematocrit (blood only) 23.5 % (37.0-47.0)
[2024-09-04 07:38] LABS: BUN Creatinine Ratio 33.9 (10-20); Calcium 7.9 mg/dl (8.6-10.3); Creatinine Clr Calc Pharmacy 29.1 ml/min; Potassium 3.8 mmol/L (3.5-5.1)
[2024-09-04 07:45] LABS: Mean Corpuscular Hemoglobin 28.2 pg (25.0-34.0); Mean Corpuscular Hgb Conc 33.5 g/dL (32.0-36.0); Mean Corpuscular Volume 84.3 fL (80.0-100.0); Mean Platelet Volume 9.7 fL (9.4-12.4); Platelet Count 269 K/uL (130-400); RDW Coefficient of Variation 17.2 % (11.5-14.5); RDW Standard Deviation 51.8 fL (36.4-46.3); Red Blood Count 2.48 M/uL (4.20-5.40); White Blood Count 7.83 K/ul (4.8-10.8)
[2024-09-04 07:59] LABS: Basophils # (auto) 0.06 K/uL (0.00-0.20); Basophils % (auto) 0.8 %; Eosinophils # (auto) 0.15 K/uL (0.00-0.50); Eosinophils % (auto) 1.9 %; Immature Granulocytes # (auto) 0.04 K/uL (0.01-0.20); Immature Granulocytes % (auto) 0.5 %; Lymphocytes # (auto) 1.86 K/uL (1.20-3.40); Lymphocytes % (auto) 23.8 %; Monocytes % (auto) 6.4 %; Neutrophils # (auto) 5.22 K/uL (1.40-6.50); Neutrophils % (auto) 66.6 %; Polychromasia 1+
[2024-09-04 08:39] LABS: Hematocrit (blood only) 20.9 % (37.0-47.0)
[2024-09-04] MEDS ORDERED: SODIUM CHLORIDE 0.9% 100 ML IV PRN (08:42)
[2024-09-04] MEDS ORDERED: SODIUM CHLORIDE 0.9% 50 ML IV PRN (08:42)
[2024-09-04] MEDS: ACETAMINOPHEN 325 MG TAB PO SCH (10:10)
[2024-09-04] MEDS: diphenhydrAMINE Capsule 25 MG CAP PO SCH (10:11)
--- NOTE | 2024-09-04 10:14 | Gastroenterology Progress Note ---
Date of Service September 04, 2024 Assessment & Plan (1) Anemia: Plan: Difficult to say if this is new bleeding or her getting rid of blood in GI tract from prior episode with H/H settling in after the bleed. her EGD did not show lesions that we would consider high risk for rebleed so for now I would just observe her and see how she does. Admission and Anticipated Discharge Date Admission Date: September 02, 2024 Subjective asked to check on patient for drop in H/H and melenic stool this morning. Had EGD yesterday with esophagitis, gastritis and clean based gastric ulcers. No active bleeding seen Physical Exam Physical Exam: Pleasant, in no distress Constitutional: WD/WN, vitals as above Results & Data Vital Signs (Past 12 Hours) Vital Signs Temp Pulse Pulse Pulse Resp BP Pulse Ox 09/04/24 07:56 36.6 C 82 16 100/66 96 09/04/24 07:24 82 09/04/24 03:14 36.3 C L 85 18 117/77 92 09/04/24 00:00 36.6 C 87 18 103/63 95 O2 Del Method 09/04/24 07:56 Room Air 09/04/24 07:24 09/04/24 03:14 Room Air 09/04/24 00:00 Room Air (1) Anemia Anemia type: unspecified type Qualified Code(s): D64.9 - Anemia, unspecified
[2024-09-04] MEDS: LORazepam 0.5 MG TAB PO PRN (10:24)
[2024-09-04 16:12] LABS: Hemoglobin 8.4 g/dl (12.0-16.0)
--- NOTE | 2024-09-04 16:19 | Hospitalist Progress Note ---
Date of Service September 04, 2024 Assessment & Plan (1) Severe sepsis: Plan: Severe sepsis SIRS plus lactic acidosis plus ARF Recurrent diverticulitis status post antibiotic Rx 09/03 Afebrile, blood pressure stable Lactic acidosis resolved Continue IV ertapenem GI on board 09/04 Continue IV ertapenem Anemia secondary to intermittent GI bleed, normal baseline hemoglobin of 12 from outpatient blood work July 2024 Possible UGIB given account of one-time episode of melanotic stool passage at home, history of GERD status post surgery FOBT done by ED provider was positive. 09/03 Hemoglobin 6.2, 2 units of packed RBC ordered Currently 8.3 Repeat H&H at 4 PM Status post EGD: Positive Harper's esophagus, gastritis, gastric ulcers Continue Protonix IV twice daily Monitor closely Clear liquid diet 09/04 Hemoglobin decreased to 7.0 1 unit packed RBC ordered Repeat hemoglobin 8.4 GI notified likely residual bleed Next clear liquid diet resumed next Repeat H&H this evening Continue Protonix IV twice daily CAD status post stent -- Hold aspirin for now hyperlipidemia, not on statin Rx prediabetes, hemoglobin A1c of 5.3 from 2022 colon cancer status post surgery urge incontinence, recently started on Myrbetriq past tobacco abuse DVT prophylaxis. SCDs Re: GI bleed Full code Admission and Anticipated Discharge Date Admission Date: September 02, 2024 Subjective Follow-up for GI bleed, etc. Seen resting in bed, comfortable, good spirits States she feels better today compared to yesterday No nausea, abdominal pain Denies shortness of breath, chest pain, palpitations, dizziness Had 2 episodes of melena overnight, 1 bowel movement today, less dark as per patient Review of Systems Review of Systems: all noted and negative except for above Physical Exam Physical Exam: General- oriented x 3, not in distress, speaks in sentences with no effort or accessory muscle use Eyes- anicteric Neck- no JVD Lungs- clear breath sounds bilaterally, no rales/wheezes Heart- normal rate, regular rhythm; no murmurs Abdomen- normal bowel sounds, nondistended, soft, nontender Extremities- no pretibial edema, no calf tenderness Neuro- alert, oriented x 3; no gross focal neurologic deficits Skin- warm & dry Results & Data Results & Data Vital Signs (Past 12 Hours) Vital Signs Temp Pulse Pulse Resp BP BP Pulse Ox 09/04/24 15:46 36.5 C 87 18 102/66 93 09/04/24 13:48 86 16 100/63 94 09/04/24 13:45 36.6 C 86 18 102/66 94 09/04/24 12:45 36.7 C 86 20 103/62 94 09/04/24 11:45 36.7 C 85 16 110/67 95 09/04/24 11:15 36.7 C 83 16 109/68 93 09/04/24 11:00 36.8 C 86 16 106/71 95 09/04/24 10:44 36.6 C 85 20 115/74 96 09/04/24 07:56 36.6 C 82 16 100/66 96 09/04/24 07:24 82 O2 Del Method 09/04/24 15:46 Room Air 09/04/24 13:48 09/04/24 13:45 09/04/24 12:45 09/04/24 11:45 09/04/24 11:15 09/04/24 11:00 09/04/24 10:44 09/04/24 07:56 Room Air 09/04/24 07:24 all noted and reviewed including below
[2024-09-04 21:06] LABS: Hematocrit (blood only) 25.6 % (37.0-47.0); Hemoglobin 8.6 g/dl (12.0-16.0)
[2024-09-05 09:17] LABS: Basophils # (auto) 0.06 K/uL (0.00-0.20); Basophils % (auto) 0.7 %; Eosinophils # (auto) 0.22 K/uL (0.00-0.50); Eosinophils % (auto) 2.4 %; Hematocrit (blood only) 24.5 % (37.0-47.0); Hemoglobin 8.1 g/dl (12.0-16.0); Immature Granulocytes # (auto) 0.04 K/uL (0.01-0.20); Immature Granulocytes % (auto) 0.4 %; Lymphocytes # (auto) 2.07 K/uL (1.20-3.40); Lymphocytes % (auto) 22.8 %; Mean Corpuscular Hgb Conc 33.1 g/dL (32.0-36.0); Mean Corpuscular Volume 87.8 fL (80.0-100.0); Mean Platelet Volume 9.7 fL (9.4-12.4); Monocytes # (auto) 0.65 K/uL (0.11-0.59); Monocytes % (auto) 7.2 %; Neutrophils # (auto) 6.03 K/uL (1.40-6.50); Neutrophils % (auto) 66.5 %; Platelet Count 281 K/uL (130-400); RDW Coefficient of Variation 18.1 % (11.5-14.5); RDW Standard Deviation 56.4 fL (36.4-46.3); Red Blood Count 2.79 M/uL (4.20-5.40); White Blood Count 9.07 K/ul (4.8-10.8)
[2024-09-05 09:38] LABS: BUN Creatinine Ratio 25.7 (10-20); Calcium 8.1 mg/dl (8.6-10.3); Creatinine Clr Calc Pharmacy 31.2 ml/min; Potassium 3.4 mmol/L (3.5-5.1)
--- NOTE | 2024-09-05 12:27 | Hospitalist Progress Note ---
Date of Service September 05, 2024 Assessment & Plan (1) Severe sepsis: Plan: Severe sepsis SIRS plus lactic acidosis plus ARF Recurrent diverticulitis status post antibiotic Rx 09/03 Afebrile, blood pressure stable Lactic acidosis resolved Continue IV ertapenem GI on board 09/04 Continue IV ertapenem 09/05 On IV ertapenem Will transition to Cipro plus Flagyl tomorrow Anemia secondary to intermittent GI bleed, normal baseline hemoglobin of 12 from outpatient blood work July 2024 Possible UGIB given account of one-time episode of melanotic stool passage at home, history of GERD status post surgery FOBT done by ED provider was positive. 09/03 Hemoglobin 6.2, 2 units of packed RBC ordered Currently 8.3 Repeat H&H at 4 PM Status post EGD: Positive Harper's esophagus, gastritis, gastric ulcers Continue Protonix IV twice daily Monitor closely Clear liquid diet 09/04 Hemoglobin decreased to 7.0 1 unit packed RBC ordered Repeat hemoglobin 8.4 GI notified likely residual bleed Next clear liquid diet resumed next Repeat H&H this evening Continue Protonix IV twice daily 09/05 Hemoglobin remained around 8 Repeat H&H this afternoon around 1500 Add sucralfate Continue Protonix IV CAD status post stent -- Hold aspirin for now hyperlipidemia, not on statin Rx prediabetes, hemoglobin A1c of 5.3 from 2022 colon cancer status post surgery urge incontinence, recently started on Myrbetriq past tobacco abuse DVT prophylaxis. SCDs Re: GI bleed Full code Disposition PT OT evaluation Admission and Anticipated Discharge Date Admission Date: September 02, 2024 Subjective Follow-up for GI bleed, etc. Next Seen sitting up in bed, comfortable, in good spirits States she feels improved today overall Less nausea, no abdominal pain No dizziness, chest pain, shortness of breath Hide 1 episode of light melena last evening No other new symptoms Review of Systems Review of Systems: all noted and negative except for above Physical Exam Physical Exam: General- oriented x 3, not in distress, speaks in sentences with no effort or accessory muscle use Eyes- anicteric Neck- no JVD Lungs- clear breath sounds bilaterally, no rales/wheezes Heart- normal rate, regular rhythm; no murmurs Abdomen- normal bowel sounds, nondistended, soft, nontender Extremities- no pretibial edema, no calf tenderness Neuro- alert, oriented x 3; no gross focal neurologic deficits Skin- warm & dry Results & Data Results & Data Vital Signs (Past 12 Hours) Vital Signs Temp Pulse Pulse Resp BP BP Pulse Ox 09/05/24 07:48 36.5 C 85 20 101/66 92 09/05/24 07:07 86 09/05/24 04:00 36.8 C 84 18 107/65 93 O2 Del Method 09/05/24 07:48 Room Air 09/05/24 07:07 09/05/24 04:00 Room Air all noted and reviewed including below
[2024-09-05] MEDS: POTASSIUM CHLORIDE / WTR 10 MEQ/100 ML PLCT IV SCH (12:28)
[2024-09-05] MEDS: SUCRALFATE 1 GM/10 ML UDC PO SCH (13:46)
[2024-09-05 15:54] LABS: Hematocrit (blood only) 27.2 % (37.0-47.0); Hemoglobin 8.8 g/dl (12.0-16.0)
[2024-09-06 06:47] LABS: Basophils # (auto) 0.04 K/uL (0.00-0.20); Basophils % (auto) 0.4 %; Eosinophils # (auto) 0.22 K/uL (0.00-0.50); Eosinophils % (auto) 2.1 %; Hematocrit (blood only) 24.2 % (37.0-47.0); Hemoglobin 8.2 g/dl (12.0-16.0); Immature Granulocytes # (auto) 0.06 K/uL (0.01-0.20); Immature Granulocytes % (auto) 0.6 %; Lymphocytes # (auto) 1.54 K/uL (1.20-3.40); Lymphocytes % (auto) 14.9 %; Mean Corpuscular Hemoglobin 29.9 pg (25.0-34.0); Mean Corpuscular Hgb Conc 33.9 g/dL (32.0-36.0); Mean Corpuscular Volume 88.3 fL (80.0-100.0); Mean Platelet Volume 9.4 fL (9.4-12.4); Monocytes # (auto) 0.75 K/uL (0.11-0.59); Monocytes % (auto) 7.3 %; Neutrophils # (auto) 7.72 K/uL (1.40-6.50); Neutrophils % (auto) 74.7 %; Platelet Count 329 K/uL (130-400); RDW Coefficient of Variation 18.6 % (11.5-14.5); RDW Standard Deviation 56.4 fL (36.4-46.3); Red Blood Count 2.74 M/uL (4.20-5.40); White Blood Count 10.33 K/ul (4.8-10.8)
[2024-09-06 07:02] LABS: BUN Creatinine Ratio 18.8 (10-20); Calcium 8.1 mg/dl (8.6-10.3); Creatinine Clr Calc Pharmacy 36.7 ml/min; Potassium 3.5 mmol/L (3.5-5.1)
[2024-09-06] MEDS: traMADol HCL 50 MG TABLET PO PRN (11:07)
--- NOTE | 2024-09-06 12:59 | XRay Report ---
XR knee RT 1 or 2V routine CLINICAL HISTORY: edema, pain COMPARISON: None FINDINGS: There is moderate joint space narrowing with osteophytosis. No fracture or dislocation. Th ere is a large joint effusion. IMPRESSION: Osteoarthritis with large joint effusion. ACT 112: Negative or not required by law. Electronically signed by: Wei Carreon M.D. 09/06/2024 12:58 PM
--- NOTE | 2024-09-06 14:03 | Ultrasound Report ---
US extremity non-vascular ltd HISTORY: 84 years-old Female R knee edema, r/o effusion acute pain of the right knee COMPARISON: Radiographs 09/06/2024 TECHNIQUE: Multiple real-time sonographic images of the right knee soft tissues were obtained assessi ng grayscale appearance and color flow FINDINGS: Complex joint effusion measures approximately 10.3 x 6.1 x 1.6 cm. There is suggestion of associated synovial thickening. Findings are nonspecific. IMPRESSION: Complex joint effusion of the knee. ACT 112: Negative or not required by law. The above report was generated using voice recognition software. It may contain grammatical, syntax o r spelling errors. Electronically signed by: Mert Villalta M.D. 09/06/2024 2:02 PM
[2024-09-06] MEDS: PROMETHAZINE 12.5 MG/50.5 ML BAG IV SCH (16:10)
--- NOTE | 2024-09-06 16:41 | Orthopedic Consultation ---
Date of Consultation September 06, 2024 Assessment & Plan (1) Synovitis of knee: Plan Medical decision making differential diagnosis acute synovitis right knee differential includes septic arthritis crystalline arthritis. Appropriate specimen and cultures obtained. She is on antibiotics presently. Will observe once report is obtained on fluid whether or not this needs to be treated surgically or just with medical management. Orthopedic Consult 84-year-old female with right knee swelling that started spontaneously 48 hours ago. She has had significant mount of medical comorbidities occurring over the last several weeks. She has had some diverticulitis and had some anemia requiring a blood transfusion. She notes no real trauma to the knee. There is a history of osteoarthritis to the knee as well as a history of gout. She has not been febrile. Tmax has been 37.3 C's. Physical examination reveals moderate effusion in the right knee. Sits with the knee flexed. She has discomfort with any type of flexion or extension. Neurovascular check femoral sciatic nerve is normal. Hip exam is benign on the right. She has discomfort but contrite to initiate a straight leg raise the extensor mechanism is palpable palpable and intact. Assessment acute knee effusion history of gout history of blood transfusion. History of osteoarthritis of her right knee with injection history. Septic arthritis needs to be rule out crystal arthritis needs to be ruled out. Will obtain aspiration culture sent for total joint fluid analysis. Consent obtained in the presence of grandson and daughter. Placed in the chart. Procedure right knee was prepared with multiple Betadine swabs and then aspirated for 18 cc of blood-tinged turbid fluid. This was sent for total joint fluid analysis. Orders placed.
--- NOTE | 2024-09-06 18:01 | Hospitalist Progress Note ---
Date of Service September 06, 2024 Assessment & Plan (1) Severe sepsis: Plan: Severe sepsis SIRS plus lactic acidosis plus ARF Recurrent diverticulitis status post antibiotic Rx 09/03 Afebrile, blood pressure stable Lactic acidosis resolved Continue IV ertapenem GI on board 09/04 Continue IV ertapenem 09/05 On IV ertapenem Will transition to Cipro plus Flagyl tomorrow 09/06 Still having nausea, secondary to ertapenem? Transition to Cipro plus Flagyl today Phenergan 12.5 mg every 6 hours scheduled ordered Anemia secondary to intermittent GI bleed, normal baseline hemoglobin of 12 from outpatient blood work July 2024 Possible UGIB given account of one-time episode of melanotic stool passage at home, history of GERD status post surgery FOBT done by ED provider was positive. 09/03 Hemoglobin 6.2, 2 units of packed RBC ordered Currently 8.3 Repeat H&H at 4 PM Status post EGD: Positive Harper's esophagus, gastritis, gastric ulcers Continue Protonix IV twice daily Monitor closely Clear liquid diet 09/04 Hemoglobin decreased to 7.0 1 unit packed RBC ordered Repeat hemoglobin 8.4 GI notified likely residual bleed Next clear liquid diet resumed next Repeat H&H this evening Continue Protonix IV twice daily 09/05 Hemoglobin remained around 8 Repeat H&H this afternoon around 1500 Add sucralfate Continue Protonix IV 09/06 Hemoglobin remaining around 8 Continue Protonix IV, sulcal fate Right knee swelling History of gout Knee x-ray: No fracture Knee ultrasound: Large joint effusion Consulted Ortho, status post arthrocentesis today Appreciate Ortho service recommendations Follow-up synovial fluid studies CAD status post stent -- Hold aspirin for now hyperlipidemia, not on statin Rx prediabetes, hemoglobin A1c of 5.3 from 2022 colon cancer status post surgery urge incontinence, recently started on Myrbetriq past tobacco abuse DVT prophylaxis. SCDs Re: GI bleed Full code Disposition PT OT evaluation Admission and Anticipated Discharge Date Admission Date: September 02, 2024 Subjective Follow-up for GI bleed, etc. Seen resting in bed, not in distress Still having some nausea today No abdominal pain, tolerating clear liquid diet well No dizziness, chest pain, shortness of breath Reports significant right knee pain today, worse with movement No fevers or chills No other new symptoms Review of Systems Review of Systems: all noted and negative except for above Physical Exam Physical Exam: General- oriented x 3, not in distress, speaks in sentences with no effort or accessory muscle use Eyes- anicteric Neck- no JVD Lungs- clear breath sounds bilaterally, no rales/wheezes Heart- normal rate, regular rhythm; no murmurs Abdomen- normal bowel sounds, nondistended, soft, nontender Extremities- no pretibial edema, no calf tenderness Right knee-positive significant edema, tenderness, minimal warmth, no erythema, poor range of motion due to pain Neuro- alert, oriented x 3; no gross focal neurologic deficits Skin- warm & dry Results & Data Results & Data Vital Signs (Past 12 Hours) Vital Signs Temp Pulse Pulse Resp BP Pulse Ox O2 Del Method 09/06/24 16:37 36.8 C 97 H 20 118/71 95 Room Air 09/06/24 13:53 92 H 09/06/24 12:34 37.3 C 94 H 16 125/71 92 Room Air 09/06/24 09:21 Room Air 09/06/24 09:03 105 H 09/06/24 07:50 36.6 C 96 H 20 133/74 92 Room Air all noted and reviewed including below
[2024-09-06 18:08] LABS: Appearance Synovial Fluid Hazy; Color Synovial Fluid Amber; Mononuclear WBC Synovial 6.3 %; Polynuclear WBC Synovial 93.7 %; RBC Synovial Fluid Auto 10000 /uL; Source Synovial Fluid Right Knee; WBC Synovial Fluid Auto 25630 /ul (0-200)
--- NOTE | 2024-09-06 19:33 | Communication Note ---
Date of Service: September 06, [address] Munson of Orthopedics following evaluation of right knee pain. Dr. Munson recommending stronger medication for possible gout/pseudogout (colchicine versus steroids) until synovial fluid analysis completed. Solu-Medrol 20 mg IV 1 dose now followed by prednisone 20 mg p.o. twice daily starting tomorrow a.m. after discussion with a.m. provider Dr. Burrell.
[2024-09-06] MEDS ORDERED: methylPREDNISolone 125 MG/2 ML VIAL IV STA (19:42)
[2024-09-06] MEDS: CIPROFLOXACIN 500 MG TAB PO SCH (20:05)
[2024-09-06] MEDS: metroNIDAZOLE 500 MG TAB PO SCH (20:05)
[2024-09-06] MEDS: methylPREDNISolone 20 MG in SYRINGE 0 ML IV ONE (21:34)
--- NOTE | 2024-09-07 06:28 | Orthopedic Progress Note ---
Date of Service September 07, 2024 Assessment & Plan Admission and Anticipated Discharge Date Admission Date: September 02, 2024 Orthopedic Progress Note Patient resting comfortably in bed with her knee much straighter than it was yesterday. States that the pressure is markedly diminished. She still has discomfort with movement. She denies any fever chills chest pain shortness of breath. Vital signs are stable she is afebrile. Neurovascular check femoral sciatic nerve is normal. Knee is able to be placed at 0 degrees of extension can go through a 20 to 30 degree arc of motion with minimal discomfort still has some swelling in the knee. Gram stain was negative for organisms. White count was 26,000+. Crystal analysis and cultures are pending. Assessment responded well to aspiration and oral prednisone. At this point in time suggest continued observation keep n.p.o. until we get the final crystal results this morning. If there are crystals then we will allow her to eat and drink. If it is gout or pseudogout suggest continue the prednisone on a taper over 7 to 10 days. Continue present management of antibiotics for diverticulitis adjust pending knee culture results. Will give her 500 cc of fluid this morning over 5 hours.
[2024-09-07] MEDS: predniSONE 20 MG TAB PO SCH (08:16)
[2024-09-07] MEDS: SODIUM CHLORIDE 0.9% 500 ML IV SCH (08:18)
[2024-09-07 09:01] LABS: Basophils # (auto) 0.01 K/uL (0.00-0.20); Basophils % (auto) 0.1 %; Hematocrit (blood only) 23.7 % (37.0-47.0); Hemoglobin 8.1 g/dl (12.0-16.0); Immature Granulocytes # (auto) 0.06 K/uL (0.01-0.20); Immature Granulocytes % (auto) 0.6 %; Lymphocytes # (auto) 0.97 K/uL (1.20-3.40); Lymphocytes % (auto) 9.7 %; Mean Corpuscular Hemoglobin 30.1 pg (25.0-34.0); Mean Corpuscular Hgb Conc 34.2 g/dL (32.0-36.0); Mean Corpuscular Volume 88.1 fL (80.0-100.0); Mean Platelet Volume 9.9 fL (9.4-12.4); Monocytes # (auto) 0.77 K/uL (0.11-0.59); Monocytes % (auto) 7.7 %; Neutrophils # (auto) 8.22 K/uL (1.40-6.50); Neutrophils % (auto) 81.9 %; Platelet Count 355 K/uL (130-400); RDW Coefficient of Variation 18.6 % (11.5-14.5); RDW Standard Deviation 59.2 fL (36.4-46.3); Red Blood Count 2.69 M/uL (4.20-5.40); White Blood Count 10.03 K/ul (4.8-10.8)
[2024-09-07 09:19] LABS: BUN Creatinine Ratio 18.2 (10-20); Calcium 7.9 mg/dl (8.6-10.3); Creatinine Clr Calc Pharmacy 40.1 ml/min; Potassium 3.6 mmol/L (3.5-5.1)
--- NOTE | 2024-09-07 17:05 | Hospitalist Progress Note ---
Date of Service September 07, 2024 Assessment & Plan (1) Severe sepsis: Plan: Recurrent diverticulitis status post antibiotic Rx Severe sepsis- SIRS plus lactic acidosis plus ARF sepsis resolved abdominal pain resolved changed ertapenem to Cipro + Flagyl for persistent nausea Phenergan 12.5 mg every 6 hours scheduled ordered nausea mostly resolved now diet advanced complete total 14 day course of Abx Anemia secondary to intermittent GI bleed normal baseline hemoglobin of 12 from outpatient blood work July 2024 Possible UGIB given account of one-time episode of melanotic stool passage at home, history of GERD status post surgery FOBT done by ED provider was positive. Hemoglobin 6.2 initially s/p 3 units pRBC Status post EGD: Positive Harper's esophagus, gastritis, gastric ulcers Hemoglobin remaining around 8 x 3 days now Continue Protonix IV, sucralfate Right knee swelling, possible gout/pseudogout flare History of gout Knee x-ray: No fracture Knee ultrasound: Large joint effusion Consulted Ortho, status post arthrocentesis synovial fluid studies: pseudogout culture: pending received 1 dose of Solumedrol, now on Prednisone 20mg BID follow Ortho recs CAD status post stent -- Hold aspirin for now given GI bleed hyperlipidemia, not on statin Rx prediabetes, hemoglobin A1c of 5.3 from 2022 colon cancer status post surgery urge incontinence, recently started on Myrbetriq past tobacco abuse DVT prophylaxis. SCDs Re: GI bleed Full code Disposition lives at home PT OT evaluation Admission and Anticipated Discharge Date Admission Date: September 02, 2024 Subjective ff up for GI bleed, suspected R knee gout flare, etc seen resting in bed, comfortable states she feels better today nausea mostly resolved no abdominal pain, melena/hematochezia R knee pain is more manageable, no fever/chills Review of Systems Review of Systems: all noted and negative except for above Physical Exam Physical Exam: General- oriented x 3, not in distress, speaks in sentences with no effort or accessory muscle use Eyes- anicteric Neck- no JVD Lungs- clear breath sounds bilaterally, no rales/wheezes Heart- normal rate, regular rhythm; no murmurs Abdomen- normal bowel sounds, nondistended, soft, nontender Extremities- no pretibial edema, no calf tenderness R knee: moderate edema, and tenderness,mild warmth, no erythema Neuro- alert, oriented x 3; no gross focal neurologic deficits Skin- warm & dry Results & Data Results & Data Vital Signs (Past 12 Hours) Vital Signs Temp Pulse Pulse Resp BP Pulse Ox O2 Del Method 09/07/24 14:43 36.7 C 100 H 18 110/71 91 Room Air 09/07/24 13:26 112 H 09/07/24 11:29 36.5 C 82 16 118/75 95 Room Air 09/07/24 07:17 36.5 C 89 16 116/75 91 Room Air 09/07/24 05:49 89 all noted and reviewed including below
--- NOTE | 2024-09-08 06:58 | Orthopedic Consultation ---
Date of Consultation September 08, 2024 Orthopedic Consult She feels much better today. She denies any marked pain in her knee. She notes she can move her knee better. She denies chest pain shortness of breath fever chills nausea vomiting or headache. Vital signs are stable she is afebrile. Knee exam today reveals much less swelling. She can actually actively extend and flex at about 40 degree arc. She can do a straight leg raise with a 10 degree lag. The extensor mechanism is intact. Neurovascular check femoral sciatic nerve is normal. Laboratory read still pending for today. If they are negative allow her to eat and drink. She needs PT OT. 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 Suggest continue that for a week. Needs reassessment with PT OT as she more than likely will need inpatient rehab to prevent fall risk. I will also order knee immobilizer to help her ambulate take a little pressure off her knee as she bears full weight. If culture negative today can be discharged on continued oral antibiotics for her diverticulitis per medicine and oral anti-inflammatory/prednisone for an additional 5 more days. She should follow-up in our office in roughly 10 days.
[2024-09-08] MEDS ORDERED: BRACE ONE (07:02)
[2024-09-08 08:08] LABS: Hematocrit (blood only) 22.8 % (37.0-47.0); Hemoglobin 7.6 g/dl (12.0-16.0); Immature Granulocytes # (auto) 0.08 K/uL (0.01-0.20); Immature Granulocytes % (auto) 0.7 %; Lymphocytes # (auto) 0.88 K/uL (1.20-3.40); Lymphocytes % (auto) 7.7 %; Mean Corpuscular Hemoglobin 29.5 pg (25.0-34.0); Mean Corpuscular Hgb Conc 33.3 g/dL (32.0-36.0); Mean Corpuscular Volume 88.4 fL (80.0-100.0); Mean Platelet Volume 9.7 fL (9.4-12.4); Monocytes # (auto) 0.61 K/uL (0.11-0.59); Monocytes % (auto) 5.4 %; Neutrophils # (auto) 9.83 K/uL (1.40-6.50); Neutrophils % (auto) 86.2 %; Platelet Count 387 K/uL (130-400); RDW Coefficient of Variation 18.6 % (11.5-14.5); RDW Standard Deviation 60.3 fL (36.4-46.3); Red Blood Count 2.58 M/uL (4.20-5.40)
[2024-09-08 08:46] LABS: BUN Creatinine Ratio 24.7 (10-20); Calcium 7.9 mg/dl (8.6-10.3); Creatinine Clr Calc Pharmacy 39.6 ml/min; Potassium 3.9 mmol/L (3.5-5.1)
[2024-09-08 09:05] LABS: Polychromasia 2+
--- NOTE | 2024-09-08 13:14 | Hospitalist Progress Note ---
Date of Service September 08, 2024 Assessment & Plan (1) Severe sepsis: Plan: Recurrent diverticulitis status post antibiotic Rx Severe sepsis- SIRS plus lactic acidosis plus ARF sepsis resolved abdominal pain resolved changed ertapenem to Cipro + Flagyl for persistent nausea Phenergan 12.5 mg every 6 hours scheduled ordered nausea mostly resolved now diet advanced complete total 14 day course of Abx Anemia secondary to intermittent GI bleed normal baseline hemoglobin of 12 from outpatient blood work July 2024 Possible UGIB given account of one-time episode of melanotic stool passage at home, history of GERD status post surgery FOBT done by ED provider was positive. Hemoglobin 6.2 initially s/p 3 units pRBC Status post EGD: Positive Harper's esophagus, gastritis, gastric ulcers Hemoglobin remaining around 8 x 3 days now Continue Protonix IV, sucralfate Pseudogout of right knee status post aspiration Knee x-ray: No fracture Knee ultrasound: Large joint effusion Consulted Ortho, status post arthrocentesis synovial fluid studies: pseudogout Culture without any growth Continue on prednisone 20 mg twice daily; plan to treat for 7 days CAD status post stent -- Hold aspirin for now for possible GI bleed hyperlipidemia, not on statin Rx prediabetes, hemoglobin A1c of 5.3 from 2022 colon cancer status post surgery urge incontinence, recently started on Myrbetriq past tobacco abuse DVT prophylaxis. SCDs Re: GI bleed Full code Disposition lives at home PT OT evaluation;Possible rehab Time spent evaluating patient, direct bedside care, chart review, placing orders, interpretation of diagnostic studies, discussion with consultants, patient, and family members, as well as other required patient management activities is 50 minutes Please note the above document was generated using voice recognition software. It may contain grammatical, syntax or spelling errors. Any formal questions or concerns about the content, text or information contained within the body of this dictation should be directly addressed to the provider for clarification Admission and Anticipated Discharge Date Admission Date: September 02, 2024 Subjective Patient seen and examined at bedside She reports her knee is slightly better compared to yesterday Vital signs are stable; no significant events overnight Review of Systems Review of Systems: All systems reviewed & are unremarkable except as noted in Subjective Physical Exam Physical Exam: General- oriented x 3, not in distress, speaks in sentences with no effort or accessory muscle use Eyes- anicteric Neck- no JVD Lungs- clear breath sounds bilaterally, no rales/wheezes Heart- normal rate, regular rhythm; no murmurs Abdomen- normal bowel sounds, nondistended, soft, nontender Extremities- no pretibial edema, no calf tenderness R knee: moderate edema, and tenderness,mild warmth, no erythema Neuro- alert, oriented x 3; no gross focal neurologic deficits Skin- warm & dry Results & Data Results & Data Vital Signs (Past 12 Hours) Vital Signs Temp Pulse Pulse Resp BP Pulse Ox O2 Del Method 09/08/24 12:22 36.4 C L 92 H 20 112/69 92 Room Air 09/08/24 10:09 81 09/08/24 07:53 36.7 C 82 16 118/74 91 Room Air 09/08/24 03:49 36.6 C 84 18 108/64 94 Room Air
[2024-09-08] MEDS: ACETAMINOPHEN 325 MG TAB PO PRN (16:05)
[2024-09-08] MEDS: PANTOprazole 40 MG TAB PO SCH (22:12)
[2024-09-09 07:14] LABS: Hematocrit (blood only) 25.6 % (37.0-47.0); Hemoglobin 8.4 g/dl (12.0-16.0); Immature Granulocytes # (auto) 0.09 K/uL (0.01-0.20); Immature Granulocytes % (auto) 0.9 %; Lymphocytes # (auto) 0.73 K/uL (1.20-3.40); Lymphocytes % (auto) 7.2 %; Mean Corpuscular Hemoglobin 29.6 pg (25.0-34.0); Mean Corpuscular Hgb Conc 32.8 g/dL (32.0-36.0); Mean Corpuscular Volume 90.1 fL (80.0-100.0); Mean Platelet Volume 9.7 fL (9.4-12.4); Monocytes # (auto) 0.31 K/uL (0.11-0.59); Monocytes % (auto) 3.1 %; Neutrophils # (auto) 8.94 K/uL (1.40-6.50); Neutrophils % (auto) 88.8 %; Platelet Count 489 K/uL (130-400); RDW Coefficient of Variation 18.9 % (11.5-14.5); RDW Standard Deviation 61.8 fL (36.4-46.3); Red Blood Count 2.84 M/uL (4.20-5.40); White Blood Count 10.07 K/ul (4.8-10.8)
[2024-09-09 07:25] LABS: BUN Creatinine Ratio 27.9 (10-20); Calcium 8.1 mg/dl (8.6-10.3)
--- NOTE | 2024-09-09 09:33 | Orthopedic Progress Note ---
Date of Service September 09, 2024 Assessment & Plan (1) Pseudogout of knee: Plan: The patient was educated regarding today's findings. Conservative care measures were discussed. She was encouraged to go to rehab or residential facility for strengthening upon discharge. Hopefully final cultures will be read today. She was encouraged to participate with physical therapy. Continue with her prednisone daily and follow-up in the office as needed upon discharge. Admission and Anticipated Discharge Date Admission Date: September 02, 2024 Subjective This 84-year-old female seen today in her room. She states her knee is feeling very good today. She has no complaints of knee pain. She feels ready to get out of bed and walk today. She is wondering when she can go home. She understands that a rehab stay or residential stay is likely. No other complaints. She is currently eating breakfast. Physical Exam Physical Exam: General: Well-developed, well-nourished, elderly female, in no acute distress. Sitting in bed eating breakfast. Alert and oriented. Conversive. Skin: Warm and dry with good turgor. No rashes. Right knee evaluation reveals no intra-articular effusion. No redness or warmth. Musculoskeletal: The patient has intact motor function of her toes, ankle, knee, and hip. She is able to actively flex and extend the knee. She has full terminal extension. There is no significant discomfort with active motion. She has no pain with palpation around the right knee, including the joint line and popliteal fossa. She is able to perform straight leg raise. Neurologic: Gross sensation is intact across the right leg by soft touch. Results & Data Vital Signs (Past 12 Hours) Vital Signs Temp Pulse Pulse Resp BP Pulse Ox O2 Del Method 09/09/24 08:02 36.3 C L 89 18 126/78 93 Room Air 09/09/24 07:00 81 09/09/24 03:40 36.3 C L 75 18 114/73 90 Room Air 09/09/24 00:18 36.5 C 90 20 112/75 93 Room Air 09/08/24 22:26 83 Laboratory Results CBC obtained this morning shows a white count of 10.07, H&H of 8.4 and 29.6. Platelets remain elevated at 489,000. PRP this morning shows normal electrolytes. BUN of 24 with creatinine 0.86. Glucose this morning is 198. Synovial fluid cultures are still pending. Today. Final results should will be available later today.
--- NOTE | 2024-09-09 10:37 | Hospitalist Progress Note ---
Date of Service September 09, 2024 Assessment & Plan (1) Severe sepsis: Plan: Recurrent diverticulitis status post antibiotic Rx Severe sepsis- SIRS plus lactic acidosis plus ARF Patient presented with lower quadrant abdominal pain; found to have acute diverticulitis. Status post 7 days of antibiotics Continue low fiber diet Anemia secondary to intermittent GI bleed normal baseline hemoglobin of 12 from outpatient blood work July 2024 Possible UGIB given account of one-time episode of melanotic stool passage at home, history of GERD status post surgery FOBT done by ED provider was positive. Hemoglobin 6.2 initially s/p 3 units pRBC Status post EGD: Positive Harper's esophagus, gastritis, gastric ulcers Hemoglobin remaining around 8 Continue Protonix , sucralfate Pseudogout of right knee status post aspiration Knee x-ray: No fracture Knee ultrasound: Large joint effusion Consulted Ortho, status post arthrocentesis synovial fluid studies: pseudogout Culture without any growth Continue on prednisone 20 mg twice daily; plan to treat for 7 days CAD status post stent -- Hold aspirin for now for possible GI bleed hyperlipidemia, not on statin Rx prediabetes, hemoglobin A1c of 5.3 from 2022 colon cancer status post surgery urge incontinence, recently started on Myrbetriq past tobacco abuse DVT prophylaxis. SCDs Re: GI bleed Full code Disposition lives at home PT OT evaluation done; will benefit from rehab. CM on board. Please note the above document was generated using voice recognition software. It may contain grammatical, syntax or spelling errors. Any formal questions or concerns about the content, text or information contained within the body of this dictation should be directly addressed to the provider for clarification Admission and Anticipated Discharge Date Admission Date: September 02, 2024 Subjective Patient seen and examined at bedside She reports that her appetite has improved Continues to have improvement in pain on her right knee No significant events overnight Review of Systems Review of Systems: All systems reviewed & are unremarkable except as noted in Subjective Physical Exam Physical Exam: General- oriented x 3, not in distress, speaks in sentences with no effort or accessory muscle use Eyes- anicteric Neck- no JVD Lungs- clear breath sounds bilaterally, no rales/wheezes Heart- normal rate, regular rhythm; no murmurs Abdomen- normal bowel sounds, nondistended, soft, nontender Extremities- no pretibial edema, no calf tenderness R knee: Significant improvement in tenderness, swelling; ROM limited by pain Neuro- alert, oriented x 3; no gross focal neurologic deficits Skin- warm & dry Results & Data Results & Data Vital Signs (Past 12 Hours) Vital Signs Temp Pulse Pulse Resp BP Pulse Ox O2 Del Method 09/09/24 08:30 Room Air 09/09/24 08:02 36.3 C L 89 18 126/78 93 Room Air 09/09/24 07:00 81 09/09/24 03:40 36.3 C L 75 18 114/73 90 Room Air 09/09/24 00:18 36.5 C 90 20 112/75 93 Room Air
[2024-09-09] MEDS: PROMETHAZINE 12.5 MG/50.5 ML BAG IV PRN (13:14)
[2024-09-10 06:32] LABS: Eosinophils # (auto) 0.01 K/uL (0.00-0.50); Eosinophils % (auto) 0.1 %; Hematocrit (blood only) 23.6 % (37.0-47.0); Hemoglobin 7.7 g/dl (12.0-16.0); Immature Granulocytes # (auto) 0.05 K/uL (0.01-0.20); Immature Granulocytes % (auto) 0.6 %; Lymphocytes # (auto) 1.15 K/uL (1.20-3.40); Lymphocytes % (auto) 12.9 %; Mean Corpuscular Hemoglobin 28.5 pg (25.0-34.0); Mean Corpuscular Hgb Conc 32.6 g/dL (32.0-36.0); Mean Corpuscular Volume 87.4 fL (80.0-100.0); Mean Platelet Volume 9.1 fL (9.4-12.4); Monocytes # (auto) 0.67 K/uL (0.11-0.59); Monocytes % (auto) 7.5 %; Neutrophils # (auto) 7.03 K/uL (1.40-6.50); Neutrophils % (auto) 78.9 %; Nucleated RBC # (auto) 0.02 K/uL (0.00-0.12); Nucleated RBC % (auto) 0.2 %; Platelet Count 501 K/uL (130-400); RDW Coefficient of Variation 18.6 % (11.5-14.5); RDW Standard Deviation 59.3 fL (36.4-46.3); White Blood Count 8.91 K/ul (4.8-10.8)
[2024-09-10 06:49] LABS: BUN Creatinine Ratio 23.2 (10-20); Calcium 7.7 mg/dl (8.6-10.3); Creatinine Clr Calc Pharmacy 37.1 ml/min
[2024-09-10 06:54] LABS: Hypochromasia Present; Polychromasia 1+
--- NOTE | 2024-09-10 08:21 | Orthopedic Progress Note ---
Date of Service September 10, 2024 Assessment & Plan Admission and Anticipated Discharge Date Admission Date: September 02, 2024 Orthopedic Progress Note Day 4 of treatment for crystalline arthropathy right knee. She feels much better. She denies any fever chills chest pain shortness of breath nausea or vomiting. Vital signs are stable she is afebrile. Neurovascular check femoral sciatic nerve is within normal limits. She can do a straight leg raise. Range of motion is from near 0 to near 95 degrees. This is pain-free. Calf is nontender. Cultures to date have been negative. Assessment continue medical management for crystalline arthropathy right knee. Continue oral antibiotics for diverticulitis. Continue knee immobilizer until she has excellent strength. She would benefit from inpatient rehab to minimize her fall fall risk. At this point in time we will sign off she can follow-up with us as an outpatient in 10 to 14 days.
--- NOTE | 2024-09-10 13:10 | Hospitalist Progress Note ---
Date of Service September 10, 2024 Assessment & Plan (1) Severe sepsis: Plan: Recurrent diverticulitis status post antibiotic Rx Severe sepsis- SIRS plus lactic acidosis plus ARF Patient presented with lower quadrant abdominal pain; found to have acute diverticulitis. Status post 7 days of antibiotics Continue low fiber diet Anemia secondary to intermittent GI bleed normal baseline hemoglobin of 12 from outpatient blood work July 2024 Possible UGIB given account of one-time episode of melanotic stool passage at home, history of GERD status post surgery FOBT done by ED provider was positive. Hemoglobin 6.2 initially s/p 3 units pRBC Status post EGD: Positive Harper's esophagus, gastritis, gastric ulcers Hemoglobin remaining around 8 Continue Protonix , sucralfate Pseudogout of right knee status post aspiration Knee x-ray: No fracture Knee ultrasound: Large joint effusion Consulted Ortho, status post arthrocentesis synovial fluid studies: pseudogout Culture without any growth Continue on prednisone 20 mg twice daily; plan to treat for 7 days CAD status post stent -- Hold aspirin for now for possible GI bleed hyperlipidemia, not on statin Rx prediabetes, hemoglobin A1c of 5.3 from 2022 colon cancer status post surgery urge incontinence, recently started on Myrbetriq past tobacco abuse DVT prophylaxis. SCDs Re: GI bleed Full code Disposition lives at home PT OT evaluation done; will benefit from rehab. CM on board. Please note the above document was generated using voice recognition software. It may contain grammatical, syntax or spelling errors. Any formal questions or concerns about the content, text or information contained within the body of this dictation should be directly addressed to the provider for clarification Admission and Anticipated Discharge Date Admission Date: September 02, 2024 Subjective [facility] hospital patient seen and examined at bedside She reports that the knee pain has improved compared to yesterday She denies diarrhea Vital signs are stable No significant events overnight Review of Systems Review of Systems: All systems reviewed & are unremarkable except as noted in Subjective Physical Exam Physical Exam: General- oriented x 3, not in distress, speaks in sentences with no effort or accessory muscle use Eyes- anicteric Neck- no JVD Lungs- clear breath sounds bilaterally, no rales/wheezes Heart- normal rate, regular rhythm; no murmurs Abdomen- normal bowel sounds, nondistended, soft, nontender Extremities- no pretibial edema, no calf tenderness R knee: Significant improvement in tenderness, swelling; ROM improved Neuro- alert, oriented x 3; no gross focal neurologic deficits Skin- warm & dry Results & Data Results & Data Vital Signs (Past 12 Hours) Vital Signs Temp Pulse Pulse Pulse Resp BP Pulse Ox 09/10/24 11:46 36.6 C 92 H 18 104/70 93 09/10/24 08:36 62 09/10/24 07:59 36.2 C L 98 H 18 128/84 93 09/10/24 07:36 09/10/24 04:11 36.4 C L 92 H 18 105/70 95 O2 Del Method 09/10/24 11:46 Room Air 09/10/24 08:36 09/10/24 07:59 Room Air 09/10/24 07:36 Room Air 09/10/24 04:11 Room Air
[2024-09-11 03:42] LABS: Adenovirus PCR Not Detected (NotDetected); Bordetella parapertussis PCR Not Detected (NotDetected); Bordetella pertussis PCR Not Detected (NotDetected); Chlamydia pneumoniae PCR Not Detected (NotDetected); Coronavirus 229E PCR Not Detected (NotDetected); Coronavirus CoV-2 (COVID19)PCR Not Detected (NotDetected); Coronavirus HKU1 PCR Not Detected (NotDetected); Coronavirus NL63 PCR Not Detected (NotDetected); Coronavirus OC43PCR Not Detected (NotDetected); Human Metapneumovirus PCR Not Detected (NotDetected); Influenza A PCR Not Detected (NotDetected); Influenza B PCR Not Detected (NotDetected); Mycoplasma pneumoniae PCR Not Detected (NotDetected); Parainfluenza Virus 1 PCR Not Detected (NotDetected); Parainfluenza Virus 2 PCR Not Detected (NotDetected); Parainfluenza Virus 3 PCR Not Detected (NotDetected); Parainfluenza Virus 4 PCR Not Detected (NotDetected); Respiratory Syncytial VirusPCR Not Detected (NotDetected); Rhinovirus/Enterovirus PCR Not Detected (NotDetected)
[2024-09-11 07:38] VITALS: BP 94/63; RESP 20; TEMP 97.9
[2024-09-11 07:47] VITALS: O2SAT 95
[2024-09-11 11:08] VITALS: PULSE 92
--- NOTE | 2024-09-11 15:03 | Discharge Summary ---
Date of Service September 11, 2024 Admission HPI Per Admitting Provider History obtained from patient, family, and records. Medical history significant for CAD status post stent (2010), hypertension, hyperlipidemia, prediabetes, GERD status post surgery, colon cancer status post surgery, recurrent diverticulitis, sacroiliitis, urge incontinence, anxiety/mood disorder, past tobacco abuse. Last confinement April 2024 for respiratory failure secondary to COVID-19 pneumonia and iron deficiency anemia. 2 weeks ago, patient noted achy lower abdominal pain and nausea symptoms reminiscent of diverticulitis attack. Melanotic stool passage 1 episode. No fever, no chills. Symptoms improved after outpatient Cipro Flagyl course prescribed by PCP. Patient started feeling sick again yesterday. No actual belly pain. Nausea and dry heaving. Patient felt weak, dizzy and lightheaded. No headache. Denies chest pain or SOB. Denies OTC NSAID intake. No noah black or bloody stool passage at home. Patient directed to ER for evaluation. SBP 90s upon arrival at the ER. IV cefepime administered at the ER. 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 Admission Exam Per Admitting Provider GENERAL: pleasant, no respiratory distress SKIN: Pallor, warm HEENT: Pale palpebral conjunctivae, no ptosis, moist buccal mucosa NECK : Supple, no tenderness CHEST : CTA, no tenderness HEART : RRR, no obvious murmurs ABDOMEN: Some distention, no overt tenderness EXTREMITIES : No LE swelling/tenderness, no other conspicuous deformities noted NEUROLOGIC : Coherent, no facial asymmetry, no other gross focality Principal Diagnosis Recurrent diverticulitis Anemia secondary to intermittent GI bleed Pseudogout of right knee status post aspiration Discharge Exam General- oriented x 3, not in distress, speaks in sentences with no effort or accessory muscle use Eyes- anicteric Neck- no JVD Lungs- clear breath sounds bilaterally, no rales/wheezes Heart- normal rate, regular rhythm; no murmurs Abdomen- normal bowel sounds, nondistended, soft, nontender Extremities- no pretibial edema, no calf tenderness R knee: Significant improvement in tenderness/ swelling; ROM improved Neuro- alert, oriented x 3; no gross focal neurologic deficits Skin- warm & dry Discharge Data Allergies Allergy/AdvReac Type Severity Reaction Status Date / Time hydrocodone Allergy Unknown Confusion Verified 09/02/24 22:36 Macrolide Antibiotics Allergy Unknown ALLERGIC Verified 09/02/24 22:36 TO "MYCINS" Penicillins Allergy Unknown HIVES Verified 09/02/24 22:36 Sulfa (Sulfonamide Allergy Unknown HIVES Verified 09/02/24 22:36 Antibiotics) lisinopril AdvReac Unknown cough Verified 09/02/24 22:36 Consultations 09/02/24 20:50 ED Decision to Admit Stat 09/02/24 22:15 Consult Gastroenterology Routine 09/06/24 12:14 Consult Orthopedic Surgery Routine Procedures Performed Operation Date: 09/03/24 17:00 Actual Procedures p EGD Biopsy Cytology - Devaughn Joseph MD Ordered Studies 09/02/24 19:23 CT abd pelvis wo con Stat 09/06/24 12:14 US extremity non-vascular ltd Routine Hospital Course (1) Severe sepsis: Recurrent diverticulitis status post antibiotic Rx Patient presented with lower quadrant abdominal pain; found to have acute diverticulitis. Status post 7 days of antibiotics Continue low fiber diet at discharge.Patient did not have any abdominal tenderness at the time of the discharge. Anemia secondary to intermittent GI bleed normal baseline hemoglobin of 12 from outpatient blood work July 2024 Possible UGIB given account of one-time episode of melanotic stool passage at home, history of GERD status post surgery FOBT done by ED provider was positive. Hemoglobin 6.2 initially s/p 3 units pRBC Status post EGD: Positive Harper's esophagus, gastritis, gastric ulcers Discharged on Protonix as recommended by GI. Hemoglobin remained stable around 7.5-8 after transfusion. No signs or symptoms of bleeding at the time of the discharge. Pseudogout of right knee status post aspiration Knee x-ray: No fracture Knee ultrasound: Large joint effusion Consulted Ortho, status post arthrocentesis synovial fluid studies: pseudogout Culture without any growth Treated with prednisone; was discharged on a course of steroid. PT OT evaluation was done; patient was recommended to go to rehab. Please note the above document was generated using voice recognition software. It may contain grammatical, syntax or spelling errors. Any formal questions or concerns about the content, text or information contained within the body of this dictation should be directly addressed to the provider for clarification Total Time Total Time Spent Total Time Spent (In Minutes): 45 Total Time Includes: Examination of the Patient, Discharge Planning, Medication Reconciliation, Communication With Other Providers and Other Discharge Plan Discharge Items Patient Disposition: [facility] Reason For Visit: SEPSIS Discharge Diagnosis: Recurrent diverticulitis status post antibiotic Rx Severe sepsis- SIRS plus lactic acidosis plus ARF Anemia secondary to intermittent GI bleed Condition on Discharge: Fair Activity: Resume your previous activity Non-emergency contact: Primary Care Provider Call non-emergency contact if: you have any medication questions and your symptoms worsen Follow-up/Referrals: Bruce Sheridan, [Primary Care Provider] - Diet: Low Fiber Addtl Attending Provider Instructions: You were admitted to the hospital for following reasons; Diverticulitis; you are treated with antibiotic during the hospitalization. Please continue to eat low fiber diet for 2 weeks Pseudogout; you are treated with steroid during the hospitalization; you are prescribed prednisone 20 mg twice a day for 5 more days Gastric ulcer; please take Protonix once a day for next 90 days. Please watch out for recurrence of bleeding including dark stool, bleeding. You are also prescribed Carafate. 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 - Use walker to assist with ambulation - Use knee immobilizer on your right leg when out of bed with walking as needed. - Call [facility] with any increased pain or swelling right knee. - Follow up in approximately 10 days as scheduled with Wilmar Yuen PA-C Pending Studies at Discharge: No Stand-Alone Forms: My [facility] Skilled Items Patient informed of condition?: Yes DNR: No Discharge Level of Care: Skilled Communicable Disease: No Discharge Prognosis: Stable Lines: None Urinary Catheter: No Medications and DC Order Prescriptions: New sucralfate 100 mg/mL Suspension 1 g PO QID 30 Days Qty: 1200 0RF prednisone 20 mg Tablet 20 mg PO BID 5 Days Qty: 10 0RF pantoprazole 40 mg Tablet,Delayed Release (Dr/Ec) 40 mg PO DAILY 90 Days Qty: 90 0RF Continued aspirin [Prabha Low Dose Aspirin] 81 mg Tablet,Delayed Release (Dr/Ec) 81 mg PO DAILY Qty: 20 0RF lorazepam 0.5 mg tablet 0.5 mg PO BID PRN (Reason: Anxiety) Qty: 10 0RF nitroglycerin 0.4 mg Tablet, Sublingual 0.4 mg sublingual UD PRN (Reason: Chest Pain) Qty: 10 0RF allopurinol 100 mg tablet 100 mg PO QAM Qty: 30 0RF cholecalciferol (vitamin D3) 1,250 mcg (50,000 unit) capsule 1,250 mcg PO WK Qty: 30 0RF Myrbetriq 50 mg PO DAILY Qty: 30 0RF Discontinued famotidine 40 mg tablet 40 mg PO QAM Discharge Orders: Discharge Order (Routine); Ordered 09/11/24 Ordered By: Gokul Friend Admission Data Admit Date/Time: 09/02/24 21:38 Attending Provider: Gokul Friend Admit Provider: Alfredo Morales Primary Care Provider: Bruce Sheridan Other Providers: Alfredo Morales; Ambar Ivey; Ramiro Smith; Maia Seals; Candice Valadez; Arlette Hill; Willa Moya; Talon Esparza; Alissa Erazo; Lan Estrada; Silvio Dolan S; Rubi Munson; Cintia June; Letty Lakhani; Quin Bains; Hina Jules; Jeb Gonsalves; Carley Juarez; Joao Concepcion Jr; Vinod Templeton; Jose Armando Rudolph; Devaughn Joseph; Matias Frost; Nataliya Brewster; Mani Roach I; Janina Snyder; Albert Macario; Rodney Alvarez; Slick Dean; Kelvin Joya; Shahid Brandon; Vianney Decker; Stacy Hernandez; Ricky Munson; Wilmar Yuen; Rei Sepulveda; Rei Salmon; Conchita Ivey; Ashely Gomes; Vicki Patricia; Ryan Lucero; Carley Hopper; Syed Juarez; Riky Barkley; Srinath Zaragoza; [facility] [place]; [facility]; [facility] Other Interventions: Discharge Summary Assessment (RN) Last Done: 09/11/24 11:08
== END 2024-09-11 13:09 | DRG 871 ==
LOC: ED 18:04 → SUATTDRO 21:38 → EDINP 21:38 → 2W 23:20 → 2N 09-05 20:49

== ENCOUNTER 2025-02-10 05:22 | Observation (INO) ==
--- NOTE | 2024-12-31 09:42 | PAT Medication Instructions ---
Medication Instructions Date of Service December 31, 2024 Home Medications Medication Instructions Recorded allopurinol 100 mg tablet 100 mg PO QAM #30 tabs 09/11/24 aspirin 81 mg tablet,delayed 81 mg PO DAILY #20 tabs 09/11/24 release (Prabha Low Dose Aspirin) cholecalciferol (vitamin D3) 1,250 1,250 mcg PO WK #30 caps 09/11/24 mcg (50,000 unit) capsule lorazepam 0.5 mg tablet 0.5 mg PO BID PRN Anxiety #10 tabs 09/11/24 nitroglycerin 0.4 mg sublingual 0.4 mg sublingual UD PRN Chest 09/11/24 tablet Pain #10 tabs allopurinol 100 mg tablet 100 mg PO QAM aspirin 81 mg tablet,delayed release (Prabha Low Dose Aspirin) 81 mg PO DAILY cholecalciferol (vitamin D3) 1,250 mcg (50,000 unit) capsule 1,250 mcg PO WK lorazepam 0.5 mg tablet 0.5 mg PO BID PRN Anxiety nitroglycerin 0.4 mg sublingual tablet 0.4 mg sublingual UD PRN Chest Pain acetaminophen 325 mg tablet 975 mg PO BID pain betamethasone dipropionate 0.05 % topical cream 1 applic topical BID PRN Skin Irritation cyanocobalamin (vitamin B-12) 1,000 mcg tablet (Vitamin B-12) 1,000 mcg PO QAM famotidine 40 mg tablet 40 mg PO QAM magnesium hydroxide 400 mg/5 mL oral suspension (Milk of Magnesia) 5 ml PO DAILY PRN Constipation mirabegron 50 mg tablet,extended release 24 hr (Myrbetriq) 50 mg PO QAM ondansetron 4 mg disintegrating tablet 4 mg PO Q6H PRN n/v pantoprazole 40 mg tablet,delayed release 40 mg PO QAM sucralfate 1 gram tablet (Carafate) 1 g PO Q6H Continue as directed nitroglycerin 0.4 mg sublingual tablet 0.4 mg sublingual UD PRN Chest Pain (if needed) ASK your prescriber and surgeon aspirin 81 mg tablet,delayed release (Prabha Low Dose Aspirin) 81 mg PO DAILY STOP taking 24 hours before surgery betamethasone dipropionate 0.05 % topical cream 1 applic topical BID PRN Skin Irritation DO NOT take the morning of surgery cholecalciferol (vitamin D3) 1,250 mcg (50,000 unit) capsule 1,250 mcg PO WK cyanocobalamin (vitamin B-12) 1,000 mcg tablet (Vitamin B-12) 1,000 mcg PO QAM magnesium hydroxide 400 mg/5 mL oral suspension (Milk of Magnesia) 5 ml PO DAILY PRN Constipation mirabegron 50 mg tablet,extended release 24 hr (Myrbetriq) 50 mg PO QAM sucralfate 1 gram tablet (Carafate) 1 g PO Q6H Take morning of surgery With a small sip of water, OTHERWISE NOTHING TO EAT OR DRINK AFTER MIDNIGHT: allopurinol 100 mg tablet 100 mg PO QAM lorazepam 0.5 mg tablet 0.5 mg PO BID PRN Anxiety (if needed) acetaminophen 325 mg tablet 975 mg PO BID pain famotidine 40 mg tablet 40 mg PO QAM ondansetron 4 mg disintegrating tablet 4 mg PO Q6H PRN n/v (if needed) pantoprazole 40 mg tablet,delayed release 40 mg PO QAM Take evening before surgery lorazepam 0.5 mg tablet 0.5 mg PO BID PRN Anxiety (if needed) acetaminophen 325 mg tablet 975 mg PO BID pain magnesium hydroxide 400 mg/5 mL oral suspension (Milk of Magnesia) 5 ml PO DAILY PRN Constipation (if needed) ondansetron 4 mg disintegrating tablet 4 mg PO Q6H PRN n/v (if needed) sucralfate 1 gram tablet (Carafate) 1 g PO Q6H Other Notes If you have any questions please call us at [phone] or [phone] or [phone] or [phone]
--- NOTE | 2025-01-05 14:28 | Anesthesiology Consultation ---
Date of Service January 05, 2025 Assessment & Plan (1) Encounter for pre-operative examination: - Infectious disease screening: Per assessment on 01/05/25- No known recent infectious disease contacts or current infectious disease symptoms. - Outpatient joint assessment: Pt currently scheduled for inpatient pathway. If surgeon requests review for outpatient joint pathway, patient is not recommended candidate for outpatient joint program from anesthesia standpoint based on available information. - Hx Novocain allergy: Patient reports that she has had Novocain reaction with dental work in the past (Facial swelling, external hives + hives "inside the mouth"). Surgeon's office made aware. - PCP visit (11/23/24): "Chronic left knee osteoarthritis with significant pain and functional impairment. Surgery pending medical clearance.. Anemia with recent transfusions and iron supplementation. Etiology unclear, history of gastrointestinal bleeding and possible ulcers.. Order preoperative blood work to assess current anemia status.. Consider referral to hematology if anemia persists or worsens.. Nursing reached out to surgeon's office and patient is to complete EKG and labs ordered by surgeon. Will await these results and then send preoperative clearance after reviewing results." > Labs done 11/23/24 note resolution in previous anemia (hgb at 12.6). - PCP awaiting review of preop testing for final clearance per 11/23/24 visit. Note written to PCP regarding preop EKG- Awaiting response + final clearance ([facility] Anil Hanson/Pina Lunsford PAC). Patient otherwise acceptable risk for surgery. Chart Review Chart Review: Patient seen in Pre Admission Testing Teaching & Discussion Pre-Anesthesia Teaching/Discussion Notes: Instructed NPO after midnight before surgery,except medications with 15 cc of water. Medication instructions provided according to the PAT guidelines. History Surgery Operation Date: 02/10/25 07:00 Proposed Procedures p Left Total Knee Arthroplasty - Rei Salmon MD Height/Weight Height: 4 ft 8 in Weight: 58.3 kg Allergies Allergy/AdvReac Type Severity Reaction Status Date / Time hydrocodone Allergy Severe Confusion Verified 12/30/24 16:10 Macrolide Antibiotics Allergy Intermediate Allergic Verified 01/05/25 08:25 to "-mycins" Penicillins Allergy Intermediate Hives Verified 01/05/25 08:25 Sulfa (Sulfonamide Allergy Intermediate Hives Verified 01/05/25 08:25 Antibiotics) procaine [From Novocain] Allergy Facial Verified 01/05/25 14:53 swelling, hives (external+inside mouth) w/dental work lisinopril AdvReac Intermediate Cough Verified 01/05/25 08:25 Medications Home Medications Medication Instructions Recorded Confirmed Last Taken allopurinol 100 mg tablet 100 mg PO QAM #30 tabs 09/11/24 12/30/24 Unknown aspirin 81 mg tablet,delayed 81 mg PO DAILY #20 tabs 09/11/24 12/30/24 Unknown release (Prabha Low Dose Aspirin) cholecalciferol (vitamin D3) 1,250 1,250 mcg PO WK #30 caps 09/11/24 12/30/24 Unknown mcg (50,000 unit) capsule lorazepam 0.5 mg tablet 0.5 mg PO BID PRN Anxiety #10 tabs 09/11/24 12/30/24 Unknown nitroglycerin 0.4 mg sublingual 0.4 mg sublingual UD PRN Chest 09/11/24 12/30/24 Unknown tablet Pain #10 tabs acetaminophen 325 mg tablet 975 mg PO BID pain 12/30/24 12/30/24 Unknown betamethasone dipropionate 0.05 % 1 applic topical BID PRN Skin 12/30/24 12/30/24 Unknown topical cream Irritation cyanocobalamin (vitamin B-12) 1,000 mcg PO QAM 12/30/24 12/30/24 Unknown 1,000 mcg tablet (Vitamin B-12) famotidine 40 mg tablet 40 mg PO QAM 12/30/24 12/30/24 Unknown magnesium hydroxide 400 mg/5 mL 5 ml PO DAILY PRN Constipation 12/30/24 12/30/24 Unknown oral suspension (Milk of Magnesia) mirabegron 50 mg tablet,extended 50 mg PO QAM 12/30/24 12/30/24 Unknown release 24 hr (Myrbetriq) ondansetron 4 mg disintegrating 4 mg PO Q6H PRN n/v 12/30/24 12/30/24 Unknown tablet pantoprazole 40 mg tablet,delayed 40 mg PO QAM 12/30/24 12/30/24 Unknown release sucralfate 1 gram tablet (Carafate) 1 g PO Q6H 12/30/24 12/30/24 Unknown Past Medical History Medical History Anxiety CAD (coronary artery disease) 2011- inferior STEMI s/p aspiration thrombectomy to LCX with 2 KAYY and KAYY to RCA Colon adenocarcinoma s/p hemicolectomy 2013 Depression GERD (gastroesophageal reflux disease) History of bleeding ulcers History of COVID-19 Fall 2023: Covid [facility] treatment Hx of breast cancer Left breast (unsure of date) Hx of diverticulitis of colon Hx of gout Hx of myocardial infarction (2010) Hypotension Iron deficiency anemia Lumbar spinal stenosis Osteoarthritis Seasonal allergies Exercise / Class Metabolic Activity III < 4 Walking/Shop/Light housework Past Family History Family History Father Arthritis Heart disease Mother Arthritis Other No family history of adverse response to anesthesia Past Surgical History Surgical History H/O dilation and curettage History of cardiac cath 2010- stents x3 History of colonoscopy History of esophagogastroduodenoscopy (EGD) EGD 08/2024 (for anemia evaluation): MAC at [facility] History of heart artery stent 2011- stents x3 History of hemicolectomy (01/12/14) Colon adenocarcinoma History of oophorectomy, unilateral History of repair of hiatal hernia History of surgical removal of pilonidal cyst Multiple Hx of tubal ligation S/P anal fissurectomy S/P cholecystectomy S/P lumpectomy, left breast Past Anesthesia History No Hx of Anesthesia Complications and No Family Hx of Anesthesia Complications History of PONV No Hx of PONV and Hx of Motion Sickness Social History Smoking Status: Never smoker Do You Dip or Chew Tobacco: No Hx Alcohol Use: No Hx Substance Use: No substance use type: does not use Review of Systems Patient denies chest pain, shortness of breath, fever, chills, cough, wheezing, palpitations. Physical Exam Vital Signs BP 115/77 P 74 TEMP 98.4 SP02 95%RA RESP 16 Physical Full cervical extension range of motion. Full TMJ range of motion. TMD > 3.5 finger breaths Mallampati Score III Dentition: intact, upper front left cap Lungs: clear throughout to auscultation Cardiac: regular rate and rhythm, no murmurs noted Spine: normal Carotid arteries: negative bruit Extremities: no LE edema Lab Results Anesthesia Preop Results Results Anesthesia Widget: WBC 6.19 K/ul (4.8-10.8) 01/05/25 Hgb 12.4 g/dl (12.0-16.0) 01/05/25 Hct 38.8 % (37.0-47.0) 01/05/25 Plt 303 K/uL (130-400) 01/05/25 Na 140 mmol/L (136-145) 01/05/25 K 3.9 mmol/L (3.5-5.1) 01/05/25 Cl 107 mmol/L (98-107) 01/05/25 CO2 25 mmol/L (21-32) 01/05/25 BUN 18 mg/dl (6-23) 01/05/25 Creat 0.95 mg/dl (0.6-1.2) 01/05/25 Glucose Level 91 mg/dl (70-99(Fasting)) 01/05/25 PT 10.8 Seconds (9.0-12.0) 01/05/25 PTT 28 Seconds (21-31) 01/05/25 INR 1.0 (0.9-1.1) 01/05/25 Urine Color Yellow 01/05/25 Urine Appearance Clear (Clear) 01/05/25 Urine pH 5.0 (4.5-7.5) 01/05/25 Urine Specific [place] 1.031 (1.000-1.030) H 01/05/25 Urine Protein Negative (Negative) 01/05/25 Urine Glucose (UA) Negative (Negative) 01/05/25 Urine Ketones Trace (Negative) H 01/05/25 Urine Blood Negative (Negative) 01/05/25 Urine Nitrite Negative (Negative) 01/05/25 Urine Bilirubin Negative (Negative) 01/05/25 Urine Urobilinogen Negative (Negative) 01/05/25 Urine Leukocyte Esterase Trace (Negative) H 01/05/25 Urine WBC (Auto) 0-5 /hpf (0-5) 01/05/25 Urine RBC (Auto) 0-2 /hpf (0-2) 01/05/25 Urine Hyaline Casts (Auto) 0-2 /lpf (0-2) 01/05/25 Urine Epithelial Cells (Auto) 0-2 /hpf (0-2) 01/05/25 Urine Bacteria (Auto) None Seen (None Seen) 01/05/25 Blood Type O Positive 01/05/25 Antibody Screen NEGATIVE 01/05/25 Testing Electrocardiogram Date: 01/06/25 NSR at 69bpm. Inferior infarct, age undetermined. Cannot r/o anterior infarct, age undetermined.
[2025-02-10] MEDS ORDERED: MIDAZOLAM HCL 1 MG/ML 2ML VIAL ONE (06:19)
[2025-02-10] MEDS ORDERED: LIDOCAINE 2% 2 ML VIAL/AMP(20MG/ML) INFIL ONE (06:19)
[2025-02-10] MEDS: LR 500ML BOLUS, THEN 15ML/HR IV SCH (06:22)
[2025-02-10] MEDS: CeleBREX 200 MG CAP PO SCH ×2 (06:25→20:47)
[2025-02-10] MEDS: FAMOTIDINE 20 MG TAB PO SCH (06:25)
[2025-02-10] MEDS ORDERED: BUPIVACAINE 0.5 % 5 MG/1 ML PF 10ML VIAL ONE (06:26)
[2025-02-10] MEDS ORDERED: ROPIVACAINE 0.5% 5 MG/ML 30 ML VIAL ONE (06:26)
[2025-02-10] MEDS ORDERED: EPINEPHrine INJ 1 MG/ML AMP ONE (06:26)
[2025-02-10] MEDS: ACETAMINOPHEN 500 MG TAB PO SCH ×2 (06:33→13:03)
[2025-02-10] MEDS: dexAMETHasone**PF** 10 MG/ML VIAL IV SCH (06:40)
--- NOTE | 2025-02-10 06:44 | History & Physical Bridge Note ---
Date of Service February 10, 2025 History & Physical Bridge Note I have examined the patient, reviewed the History & Physical and in the interval since the performance of the History & Physical I have noted the following changes of clinical significance: no changes noted
[2025-02-10] MEDS: TRANEXAMIC ACID 1,000 MG **IV Pre-op IV SCH (06:45)
[2025-02-10] MEDS ORDERED: LABETALOL HCL IV 5 MG/ML 20ML IV ONE (07:08)
[2025-02-10] MEDS ORDERED: ePHEDrine sulfate 50 MG/5 ML SYR ONE (07:12)
[2025-02-10] MEDS: ROPIVACAINE 0.5% HCL/PF 246 MG, Ketorolac (*for OR use only*) 30 MG, EPINEPHrine 30MG/3... INFIL SCH (07:36)
[2025-02-10] MEDS ORDERED: ATROPINE SULFATE 0.1 MG/ML 10ML SYR IV PRN (07:39)
[2025-02-10] MEDS ORDERED: ONDANSETRON INJ 2 MG/ML 2 ML VIAL ONE (08:10)
--- NOTE | 2025-02-10 08:42 | Operative Report ---
Post Operative Report Pre & Post Diagnosis Operation Date: 02/10/25 07:00 Pre-Op Diagnosis: Left Knee Degenerative Joint Disease, valgus malalignment Post-Op Diagnosis: Left Knee Degenerative Joint Disease, valgus malalignment I identified the patient and participated in the time-out.: Yes Procedure Operation Date: 02/10/25 07:00 Actual Procedures p Left Total Knee Arthroplasty(Left) - Rei Salmon MD Surgeon Rei Salmon MD In Flight Crew Member Ryan Lucero PA-C. No resident or fellow was available to assist. Estimated Blood Loss 50 Findings Consistent with Post-Op Diagnosis Specimens Left knee bone and soft tissue contents Anesthesia Type Spinal MAC Complications none Disposition Disposition: Recovery Room Indications 84-year-old female with left knee osteoarthritis refractory to conservative management. X-rays demonstrate [id number] disease in the lateral compartment with valgus malalignment. I had a long discussion with her about the risks and benefits of surgery, alternatives to surgery, and expected outcomes. After reviewing all these she elected to proceed with surgery. All questions were answered. Informed consent was signed. Description of Procedure Patient was identified in the preoperative holding area where the surgical site, left knee, was marked. Spinal anesthetic was placed by anesthesia. Patient was brought back to the operating room, placed on the operating room table, and IV sedation was administered. A bump was placed underneath the ipsilateral hip. All bony prominences were padded. Perioperative antibiotics and tranexamic acid were administered. Exam under anesthesia was performed. This demonstrated valgus malalignment of approximately 12 degrees. Her MCL was intact. Range of motion was 0 to 125 degrees. The surgical site was prepped and draped in the normal sterile fashion. Prior to incision a multidisciplinary timeout was called. All in the room were in agreement. We began by exsanguinating the limb with an Esmarch bandage. Tourniquet was inflated to 250 mmHg. A 12 cm long incision was made over the anterior aspect of the knee. I dissected through the subcutaneous tissues to the level of the fascia. Full-thickness flaps were raised above the fascia. A median parapatellar arthrotomy was made. The fat pad was excised. A small medial release was performed with Bovie electrocautery on the proximal tibia, given her valgus malalignment. Synovitis in the knee and suprapatellar pouch was removed. The patella was then everted and held with 2 towel clips. 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 The thickness of the patella was measured at 21 mm. Patellar resection was performed. Caliper showed the patella thickness now to be 13 mm. A size 35 trial was placed and had a great fit. The 3 drill holes were placed then the trial button was placed. The patellar thickness was now 23 mm which I was very happy with. The patellar trial was then removed, and the knee was flexed up. Retractors were placed to protect the MCL and LCL. Osteophytes were removed from the femoral condyles and intercondylar notch. The ACL and PCL were excised. Intramedullary drill guide was drilled into the femur. Distal femoral cutting guide was placed set at 5 degrees of valgus to resect 10 mm off the distal femur. Distal femoral resection was made without difficulty. The tibia was then exposed. The lateral meniscus was sharply excised. The tibial cutting jig was positioned in line with the tibial shaft in the coronal plane and with 3 degrees of posterior slope in the sagittal plane to resect 4 mm off the more involved lateral tibial plateau. The jig was then pinned in position and the tibial cut was made. We then brought the knee into full extension. Lamina spreaders were placed. The medial meniscus was excised. Extension gap was inspected. It was a little bit secondary to contracted lateral soft tissue structures. These were palpated. The IT band appeared to be the most thought of the lateral structures. Therefore the IT band was pie crusted. Once this was complete the extension gap was now rectangular which I was happy with. Next, the extension block was then placed for 5 mm thickness poly. This gave us full extension and excellent stability to varus and valgus stress. Next the extension block was removed, the knee was flexed up, collateral ligaments were protected, and the epicondylar axis and Whitesides line were marked out on the distal femoral cut. Femoral sizing guide was placed. External rotation was set at 5 degrees so that the posterior cut would be parallel with the epicondylar axis and perpendicular with Whitesides line. The patient sized to a size 3 femur. 2 pins were then placed through the jig into the distal femur. The jig was removed and the appropriately sized 4-in-1 cutting jig was placed over the pins, then fixated to the bone using threaded, headed pins. We confirmed that we would not notch the femur with our anterior cut. Our 4 cuts were then made. The cutting jig was removed. The flexion block was then placed with the knee held at 90 degrees. There was excellent stability to varus and valgus at 90 degrees with no gapping medially or laterally. Next the box cutting jig was placed on the distal femur. The box cut was made and the femoral trial was impacted into position. Lug holes were drilled in the distal femur. We then reexposed the tibia. The tibia was sized to a 3 for a fixed bearing component and pinned in external rotation on the cut tibial surface. The intramedullary drill followed by the keel punch were used to prepare the tibia. The tibial tray with a 5 mm thickness polyethylene liner was placed and the knee was brought through a full range of motion. There was excellent stability to varus valgus stress throughout a full range of motion, which was approximately 0 to 130 degrees. Next the trial components were removed. I then injected the posterior capsule and periosteum with the periarticular injection cocktail. The bone cuts were then irrigated and dried while the cement was mixed on the back table. The femoral component was cemented on first. Excess cement was removed. A lap sponge was placed over the femoral component for protection, then the tibia was subluxated anteriorly. The all polyethylene tibial component was then cemented in place. Again excess cement was removed. The knee was brought into full extension and held there until the cement cured. The patella was cemented and clamped. Dilute Betadine solution was then allowed to soak in the knee while the cement cured. Once the cement was fully cured, the knee was irrigated out, the tourniquet was let down and meticulous hemostasis was ensured. The knee was brought through a full range of motion. I was were very happy with the patella tracking and the stability. We then began to close. Inspection of the lateral capsule revealed a small rent where we had piecrust of the IT band. A single [id number] 0 Vicryl suture was placed in the lateral capsule to close this. Interrupted 0 Vicryl suture was used to repair the patellar retinaculum in [id number] fashion. The quadriceps and patellar tendons were run with #1 Vicryl. The deep dermal layer was closed with interrupted 2-0 Vicryl. Dermabond and Zipline was used for the skin, followed by a Silverlon dressing. A compressive Jacob wrap was placed and the knee was placed into a knee immobilizer. Patient's sedation was lifted and was transferred to recovery room in stable condition. Summary of implants: Depuy Attune Posterior Stabilized Cemented Femur, size 3 left Attune All-polyethylene tibial component, posterior stabilized 5 mm thickness, size 3 Attune patella medialized dome, size 35 2 batches of Palacos bone cement Postoperative course: Patient will be admitted to the floor for pain control and monitoring. Weightbearing as tolerated with a walker with no knee range of mot ion for 48 hours. Aspirin for DVT prophylaxis. I attest to the content of the Intraoperative Record and any orders documented therein. Any exceptions are noted below.
[2025-02-10] MEDS ORDERED: METOCLOPRAMIDE HCL INJ 5 MG/ML 2 ML VIAL IV PRN ×2 (08:56→09:09)
[2025-02-10] MEDS ORDERED: NALOXONE HCL 0.4 MG/1 ML VIAL/CARP IV PRN ×2 (08:56→09:09)
[2025-02-10] MEDS ORDERED: diphenhydrAMINE Capsule 25 MG CAP PO PRN ×2 (08:56→09:09)
[2025-02-10] MEDS ORDERED: MAGNESIUM HYDROXIDE SUSP 30 ML UDC PO PRN ×2 (08:56→09:09)
[2025-02-10] MEDS ORDERED: ONDANSETRON INJ 2 MG/ML 2 ML VIAL IV PRN (08:56)
--- NOTE | 2025-02-10 08:56 | Operative Report ---
Post Operative Report Pre & Post Diagnosis Operation Date: 02/10/25 07:00 Pre-Op Diagnosis: Left Knee Degenerative Joint Disease, valgus malalignment Post-Op Diagnosis: Left Knee Degenerative Joint Disease, valgus malalignment I identified the patient and participated in the time-out.: Yes Procedure Operation Date: 02/10/25 07:00 Actual Procedures p Left Total Knee Arthroplasty(Left) - Rei Salmon MD Surgeon Rei Salmon MD Columnist/Commentator Ryan Lucero PA-C. No resident or fellow was available to assist. Estimated Blood Loss 50 Findings Consistent with Post-Op Diagnosis Specimens Left knee bone and soft tissue contents Description of Procedure I was present for the entire case. I assisted with patient positioning, prepping, draping, retraction, wound closure, dressing application, splint application. Please refer to Dr. Salmon's procedure note for full details. I attest to the content of the Intraoperative Record and any orders documented therein. Any exceptions are noted below.
--- NOTE | 2025-02-10 09:25 | Anesthesiology Progress Note ---
Date of Service February 10, 2025 Anesthesia Post Procedure Vital Signs Vital Signs: Temp Pulse Resp BP Pulse Ox O2 Del Method 02/10/25 05:59 36.5 C 70 20 133/84 95 Room Air Transfer of Care Handoff Completed per policy Notes Mental Status: alert / awake / arousable Patient Amnestic to Procedure: Yes Nausea / Vomiting: adequately controlled Pain: adequately controlled Airway Patency, RR, SpO2: stable & adequate BP & HR: stable & adequate Hydration State: stable & adequate Neuraxial Anesthesia: was administered and sensory block is resolving Anesthetic Complications: no major complications apparent
[2025-02-10] MEDS ORDERED: NITROGLYCERIN SL 0.4 MG/TAB TAB SL PRN (10:52)
--- NOTE | 2025-02-10 11:02 | XRay Report ---
XR knee LT 1 or 2V routine CLINICAL HISTORY: Surgical Post Op COMPARISON: 01/27/2025 FINDINGS: Left knee prosthesis shows no hardware complication. There is expected soft tissue gas. IMPRESSION: Unremarkable postoperative exam. ACT 112: Negative or not required by law. Electronically signed by: Wei Carreon M.D. 02/10/2025 11:01 AM
[2025-02-10] MEDS: SODIUM CHLORIDE 0.9% 1,000 ML IV SCH ×2 (11:10→12:14)
[2025-02-10] MEDS ORDERED: BETAMETHASONE DIP AUG (DIPROLENE) 0.05% CR 15 GM TUBE EXT PRN (11:18)
[2025-02-10] MEDS: MULTIVITAMIN TAB PO SCH (12:14)
[2025-02-10] MEDS: DOCUSATE SODIUM 100 MG CAP PO SCH ×2 (12:14→20:47)
[2025-02-10] MEDS ORDERED: ACETAMINOPHEN 500 MG TAB PO SCH (14:00)
[2025-02-10] MEDS: TRANEXAMIC ACID / 0.7% NACL 1,000 MG/100 ML BAG IV SCH (14:21)
[2025-02-10] MEDS: SUCRALFATE 1 GM TAB PO SCH (14:30)
[2025-02-10] MEDS ORDERED: TRANEXAMIC ACID / 0.7% NACL 1,000 MG/100 ML BAG IV SCH (15:00)
[2025-02-10] MEDS: Scopolamine CHECK PATCH PLACEMENT SCH (16:37)
[2025-02-10] MEDS: SENNA 8.6 MG TAB PO SCH (20:46)
[2025-02-10] MEDS ORDERED: SENNA 8.6 MG TAB PO SCH (21:00)
[2025-02-10] MEDS ORDERED: CeleBREX 200 MG CAP PO SCH (21:00)
[2025-02-11 06:55] LABS: Hematocrit (blood only) 30.6 % (37.0-47.0); Hemoglobin 10.1 g/dl (12.0-16.0); Mean Corpuscular Hemoglobin 28.2 pg (25.0-34.0); Mean Corpuscular Volume 85.5 fL (80.0-100.0); Platelet Count 302 K/uL (130-400); RDW Standard Deviation 53.7 fL (36.4-46.3); Red Blood Count 3.58 M/uL (4.20-5.40); White Blood Count 11.71 K/ul (4.8-10.8)
[2025-02-11 07:11] LABS: Anion Gap 7.0 (3-11); Blood Urea Nitrogen 21.0 mg/dl (6-23); Calcium 8.5 mg/dl (8.6-10.3); Carbon Dioxide 25.0 mmol/L (21-32); Chloride 108.0 mmol/L (98-107); Creatinine Clr Calc Pharmacy 32.3 ml/min; Glucose 99.0 mg/dl (70-99(Fasting)); Potassium 3.9 mmol/L (3.5-5.1); Sodium 140.0 mmol/L (136-145)
[2025-02-11] MEDS ORDERED: dexAMETHasone 10 MG in SYRINGE 0 ML IV SCH (08:00)
[2025-02-11] MEDS: VIBEGRON 75 MG TAB PO SCH (08:44)
[2025-02-11] MEDS: CYANOCOBALAMIN (B-12) 500 MCG TABLET PO SCH (08:44)
[2025-02-11] MEDS: MULTIVITAMIN TAB PO SCH (08:45)
[2025-02-11] MEDS: FAMOTIDINE 40 MG TABLET PO SCH (08:45)
[2025-02-11] MEDS: ASPIRIN 81 MG ECTAB PO SCH (08:45)
[2025-02-11] MEDS: dexAMETHasone 10 MG in SYRINGE 0 ML IV SCH (08:46)
--- NOTE | 2025-02-11 11:40 | Orthopedic Progress Note ---
Date of Service February 11, 2025 Assessment & Plan (1) S/P total knee arthroplasty: Plan: Postop day #1 status post left total knee arthroplasty with Dr. Salmon. Patient was experiencing significant pain last night and we switched her pain medication from tramadol to oxycodone. This seems to have provided her with much more pain relief and she seems to be tolerating this medication well. Vital signs are stable. Postop x-ray shows expected findings with no concerns. Postoperative labs show a mild leukocytosis at 11.71 likely secondary to steroids and stress of surgery. Mild anemia with a hemoglobin of 10.1 likely secondary to acute blood loss from surgery. Does have a history of anemia. Patient participated with PT and OT and they recommended short-term rehab. Patient will be going to [facility] rehab per case management however a bed will not be available until tomorrow. Continue with current pain regimen. Continue with PT and OT. Continue with knee immobilizer when ambulating for the first 48 hours after surgery. Needs to use a walker at all times when ambulating. Ice 20 minutes every 1-2 hours. Elevate above heart. Continue to work on PT exercises well admitted. Aspirin 81 mg twice daily for DVT prophylaxis. CHRISTEN stockings bilaterally for the first 2 weeks after surgery. Leave silverlon dressing in place until Zipline removal at 2-week follow-up appointment. As long as silverlon dressing is intact, okay to shower. Do not submerge underwater. If dressing is not intact, it will need to be reinforced and patient will need to keep the incision dry. Admission and Anticipated Discharge Date Admission Date: February 10, 2025 Narciso Guevara is seen sitting in a chair this morning. She rates her pain as 5 or 6 out of 10, improved from yesterday. She participated with physical therapy and Occupational Therapy who recommended acute rehab after being discharged from the hospital. She is comfortable with this. She feels that the oxycodone has helped her more than the tramadol and she is tolerating this medication well. She denies any fevers, chills, chest pain, shortness of breath, nausea, vomitin g, or numbness or tingling in her toes. Physical Exam Constitutional: Resting comfortably sitting upright in chair. In no distress. Pleasant. Cardiovascular: Left DP pulse 2+ Musculoskeletal: Left lower extremity: Jacob wrap taken down. Silverlon dressing is intact. There is scant bloody drainage through the window. Expected soft tissue swelling about the knee with ecchymosis along bilateral aspects of the knee. Strength 5/5 with ankle plantarflexion, dorsiflexion, eversion. Neurologic: No sensory deficits bilateral toes to light touch Results & Data Vital Signs (Past 12 Hours) Vital Signs Temp Pulse Pulse Resp BP Pulse Ox O2 Del Method 02/11/25 07:25 97.5 F L 60 16 117/57 L 93 Room Air 02/11/25 03:08 97.5 F L 57 L 18 119/67 91 Room Air Laboratory Results 02/11/25 06:27 WBC 11.71 H RBC 3.58 L Hgb 10.1 L Hct 30.6 L MCV 85.5 MCH 28.2 MCHC 33.0 RDW Std Deviation 53.7 H RDW Coeff of Jamar 17.2 H Plt Count 302 MPV 9.0 L Sodium 140 Potassium 3.9 Chloride 108 H Carbon Dioxide 25 Anion Gap 7 BUN 21 Creatinine 0.94 Est Cr Clr Drug Dosing 32.3 eGFR 60.21 BUN/Creatinine Ratio 22.3 H Glucose 99 Calcium 8.5 L Diagnostic Findings Knee X-Ray 02/10/25 09:10 XR knee LT 1 or 2V routine CLINICAL HISTORY: Surgical Post Op COMPARISON: 01/27/2025 FINDINGS: Left knee prosthesis shows no hardware complication. There is expected soft tissue gas. IMPRESSION: Unremarkable postoperative exam. ACT 112: Negative or not required by law. Electronically signed by: Wei Carreon M.D. 02/10/2025 11:01 AM (1) S/P total knee arthroplasty Laterality: left Qualified Code(s): Z96.652 - Presence of left artificial knee joint
--- NOTE | 2025-02-11 11:40 | Discharge Summary ---
Date of Service February 12, 2025 Principal Diagnosis Left knee osteoarthritis. Status post left total knee arthroplasty Discharge Data Allergies Allergy/AdvReac Type Severity Reaction Status Date / Time hydrocodone Allergy Severe Confusion Verified 02/10/25 05:48 Macrolide Antibiotics Allergy Intermediate Allergic Verified 02/10/25 05:48 to "-mycins" Penicillins Allergy Intermediate Hives Verified 02/10/25 05:48 Sulfa (Sulfonamide Allergy Intermediate Hives Verified 02/10/25 05:48 Antibiotics) procaine [From Novocain] Allergy Facial Verified 02/10/25 05:48 swelling, hives (external+inside mouth) w/dental work lisinopril AdvReac Intermediate Cough Verified 02/10/25 05:48 Procedures Performed Operation Date: 02/10/25 07:00 Actual Procedures p Left Total Knee Arthroplasty(Left) - Rei Salmon MD Hospital Course (1) S/P total knee arthroplasty: Paola Colbert is an 84-year-old female who underwent an uncomplicated left total knee arthroplasty with Dr. Salmon at [facility] on 02/10/2025. Patient was admitted to the hospital for observation. She experienced some postoperative pain with the use of tramadol, so her pain medication was switched to oxycodone which she tolerated very well and this controlled her pain much better. She was also given Tylenol postoperatively. Her vital signs remained stable. Postoperative x-ray showed expected findings with no concerns. Postoperative labs demonstrated a mild leukocytosis at 11.71 likely secondary to steroids and stress of surgery. Mild anemia with a hemoglobin of 10.1 likely secondary to acute blood loss from surgery. Patient participated with PT and OT and they recommended short-term rehab. Patient was accepted to [facility] however a bed was not available until 02/12/2025, so the patient remained in the hospital for second night. DVT prophylaxis was initially started postop day 1 with aspirin 81 mg twice daily however due to her history of a GI bleed with aspirin, this was switched to Xarelto 10 mg daily. Pain control will include Tylenol and oxycodone. Prescriptions were sent to the specialty pharmacy connected with [facility]. Patient's Jacob wrap was taken down and her silverlon dressing was intact. As long as the dressing is intact, she can shower but do not submerge underwater. She will use the knee immobilizer for the first 48 hours when ambulating. She needs to use walker at all times. After 48 hours, as long as she feels that she has regained quad function, she can discontinue the knee immobilizer. Ice 20 minutes every 1-2 hours. CHRISTEN stockings bilaterally for the first 2 weeks after surgery. Patient will follow-up in 2 weeks for a dressing change and Zipline removal. Patient was discharged to [facility] rehab on 02/12/2025. Total Time Total Time Spent Total Time Spent (In Minutes): 20 Discharge Plan Discharge Items Patient Disposition: Transfer Inpatient Rehab Fac Reason For Visit: Left Knee Osteoarthritis Discharge Diagnosis: s/p Left knee arthroplasty Activity: Per Instructions section Non-emergency contact: Surgeon Call non-emergency contact if: you have any medication questions, your temperature is above 101.5, your wound has increased redness, your wound has increased drainage and your wound pain has increased Follow-up/Referrals: Bruce Sheridan DO [Primary Care Provider] - Wilmar Yuen, RADHA [Physician Tub Washer] - 02/24/25 2:15 pm Diet: Heart Healthy Addtl Attending Provider Instructions: POST OPERATIVE DISCHARGE INSTRUCTIONS Pain Control Please take the follow medications for pain control, as well as icing and elevating your operative extremity. Pain after surgery is to be expected. We may not be able to take away all of your pain, but the goal is to make your pain manageable - Extra strength Tylenol 1,000mg (2 tabs) every 8 hours - Oxycodone 5-10mg (1-2tabs) every 4-6 hours as needed DVT Prophylaxis With any surgery, you are at increased risk for blood clots. Please take the follow measures to prevent blood clots and read the warning signs to watch for. Please take the follow anticoagulant: Xarelto 10mg for 3 weeks If you were given CHRISTEN compression stockings, these are to be worn on both legs for 18-20 hours daily for 3 weeks Warning signs: Calf pain, lower extremity swelling, numbness/tingling, skin discoloration, increased pain, shortness of breath, chest pain. Please contact our office if you experience any of these symptoms or call 911 if you are having trouble breathing. Ice Ice your operative site at least 5 times a day for 15-30 minutes at a time, for the first three days, then as needed. This will help to reduce swelling and pain. Make sure you have a thin cloth between the ice or cooling unit and your skin to prevent gordon bite. This is especially important if you received a nerve block. When you are icing, prop your leg up with pillows/blankets under the ankle, NOT under the knee, to avoid getting a flexion contracture and to help get the knee extended. Diet/Nausea/Vomiting Start by drinking clear liquids and eating crackers. If you can tolerate this, then you may resume your normal diet. If you feel nauseated or vomit, take Zofran/ondansetron (if prescribed). Please call our office if you have intractable nausea or vomiting, or, if after hours, you may go to the Emergency Room for help. Surgical Dressing Please leave on any dressing until you are seen by the PA for your post- operative appointment. If there are any issues with your dressing please notify your home health nurse or give our office a call. Weight bearing, Range of Motion, Activity You will be weight bearing as tolerated on your operative site. You will need a walker to assist in ambulation. You can begin doing range of motion immediately You are encouraged to stand and walk short distances in the house as tolerated with your walker Physical therapy You will do your rehab for the first two weeks with home health. Then you will begin outpatient physical therapy. It is very important you follow your rehab protocol and do your exercises as instructed by your provider and physical therapist. Wound Care and Showering It is normal to see some dried blood on the dressing. Do not remove your dressing, paper strips or sutures yourself unless otherwise instructed. Showering is allowed post op day 3. You have a water-resistant dressing. You can shower with this on as long as all the edges are in tact. You may want to reinforce with waterproof covering (i.e Press N Seal) Constipation Constipation is a common side effect of narcotic pain medication, dehydration after surgery and iron supplement (if you were instructed to begin that after surgery). We recommend purchasing an [id number] laxative such as Milk of Magnesia, Colace, Dulcolax, Miralax or Senna from a local pharmacy, and taking it as instructed. Stay hydrated and you may increase your fiber in your diet as well. Call our clinic if any questions. Driving You may not drive while taking narcotic pain medication and until you have full function of your leg. Length of time you can expect to be unable to drive varies from person to person, and depends on which knee is getting replaced, but as a general rule of thumb plan for 4-6 weeks no driving Driving will be discussed at your first post op appointment Return to Work Your return to work depends on what surgery was done and what type of work you do. Please bring any paperwork your employer needs completed to your first post-operative visit. Also, bring a description of your job duties, as this helps us to understand what risks you may face at work. Travel Avoid long distance travel (greater than 1 hour) in airplanes and cars for the first 6 weeks after surgery. Follow-up Please attend your post operative appointments as scheduled. At these appoint ments, we may do dressing change and remove any sutures/shaye/Zip-line 10-14 days after your surgery. If you do not know your post operative appointment dates or times please call the office at [phone] When to call the office It is normal to have swelling and bruising in the limb that was operated on. This will improve with time. It is also normal to have fevers for the first 2 days after surgery. Reasons you should call your doctor include: Uncontrolled pain; Nausea, vomiting, or constipation that does not improve with medication; Fevers over 101.5, chills, sweats; Drainage or bleeding from the wound; Foul odor; Spreading areas of redness; calf pain or swelling, shortness of breath, chest pain; Any other concerns You may call the office at [phone]. If it is a medical emergency please call 911. Pending Studies at Discharge: Yes Studies:: pathology left knee joint Stand-Alone Forms: My [employer], Smoking Cessation Skilled Items Patient informed of condition?: Yes DNR: No Discharge Level of Care: Acute rehab Communicable Disease: No Discharge Prognosis: Stable Lines: None Urinary Catheter: No Medications and DC Order Prescriptions: New acetaminophen [Tylenol Extra Strength] 500 mg Tablet 1,000 mg PO Q8 Qty: 60 0RF docusate sodium 100 mg Capsule 100 mg PO BID Qty: 20 0RF Xarelto 10 mg tablet 10 mg PO DAILY 21 Days Qty: 21 0RF Continued lorazepam 0.5 mg tablet 0.5 mg PO BID PRN (Reason: Anxiety) Qty: 10 0RF nitroglycerin 0.4 mg Tablet, Sublingual 0.4 mg sublingual UD PRN (Reason: Chest Pain) Qty: 10 0RF allopurinol 100 mg tablet 100 mg PO QAM Qty: 30 0RF cholecalciferol (vitamin D3) 1,250 mcg (50,000 unit) capsule 1,250 mcg PO WK Qty: 30 0RF sucralfate [Carafate] 1 gram Tablet 1 g PO Q6H famotidine 40 mg Tablet 40 mg PO QAM cyanocobalamin (vitamin B-12) [Vitamin B-12] 1,000 mcg Tablet 1,000 mcg PO QAM magnesium hydroxide [Milk of Magnesia] 400 mg/5 mL Suspension 5 ml PO DAILY PRN (Reason: Constipation) pantoprazole 40 mg Tablet,Delayed Release (Dr/Ec) 40 mg PO QAM betamethasone dipropionate 0.05 % Cream 1 applic TOPICAL BID PRN (Reason: Skin Irritation) ondansetron 4 mg Tablet,Disintegrating 4 mg PO Q6H PRN (Reason: n/v) mirabegron [Myrbetriq] 50 mg Tablet Extended Release 24 Hr 50 mg PO QAM Discontinued aspirin [Prabha Low Dose Aspirin] 81 mg Tablet,Delayed Release (Dr/Ec) 81 mg PO DAILY Qty: 20 0RF acetaminophen 325 mg Tablet 975 mg PO BID Discharge Orders: Discharge Order (Routine); Ordered 02/11/25 Ordered By: Vicki Patricia Admission Data Admit Date/Time: 02/10/25 09:10 Attending Provider: Rei Salmon Admit Provider: Rei Salmon Primary Care Provider: Bruce Sheridan Other Providers: Melany Hillman [facility] Other Interventions: Discharge Summary Assessment (RN) Last Done: 02/12/25 10:12
[2025-02-11] MEDS: HYDROmorphone INJ 0.5 MG/0.5 ML SYR IV PRN (12:01)
[2025-02-11] MEDS: ONDANSETRON INJ 2 MG/ML 2 ML VIAL IV PRN (12:26)
[2025-02-11 16:20] VITALS: RESP 16
[2025-02-11] MEDS: LORazepam 0.5 MG TAB PO PRN (22:06)
[2025-02-11 23:38] VITALS: O2SAT 93
[2025-02-12 07:31] VITALS: TEMP 97.5
[2025-02-12] MEDS: RIVAROXABAN 10 MG TABLET PO SCH (07:56)
--- NOTE | 2025-02-12 09:29 | Orthopedic Progress Note ---
Date of Service February 12, 2025 Assessment & Plan (1) S/P total knee arthroplasty: Plan: PT OT this morning. Weight-bear as tolerated with walker She will use the knee immobilizer for the first 48 hours when ambulating. She needs to use walker at all times. After 48 hours, as long as she feels that she has regained quad function, she can discontinue the knee immobilizer. Ice 20 minutes every 1-2 hours. CHRISTEN stockings bilaterally for the first 2 weeks after surgery. Xarelto for DVT prophylaxis Discharge to rehab today. Follow-up orthopedic clinic 2 weeks. Silverlon dressing to stay in place until then. Okay to shower with Silverlon in place. Admission and Anticipated Discharge Date Admission Date: February 10, 2025 Subjective Postop day 2 following left total knee arthroplasty. Patient reports she is doing well this morning. She got up out of bed had a little bit more pain but this is better with the oxycodone. She denies any fevers, chills, chest pain, shortness of breath, nausea, vomiting, or numbness or tingling in her toes. Physical Exam Physical Exam: On exam she is sitting upright in bed no acute distress alert and active x 3. Left knee exam: Silverlon shows scant bloody drainage through the window. This is left in place. Ice pack will be changed out as this was warm. Moderate swelling around the knee appropriate for this stage postoperatively. Distally neurovascularly intact. Results & Data Vital Signs (Past 12 Hours) Vital Signs Temp Pulse Resp BP Pulse Ox O2 Del Method 02/12/25 08:30 Room Air 02/12/25 07:29 36.4 C L 58 L 16 123/70 93 Room Air 02/11/25 23:38 36.8 C 52 L 16 126/70 93 Room Air (1) S/P total knee arthroplasty Laterality: left Qualified Code(s): Z96.652 - Presence of left artificial knee joint
[2025-02-12 10:13] VITALS: BP 131/79; PULSE 67
[2025-02-13] MEDS ORDERED: Scopolamine REMOVE TRANSDERM PATCH ONE (08:00)
== END 2025-02-12 11:22 ==
LOC: PACUINP 05:22 → ASU 05:22 → 3E 11:57

== ENCOUNTER 2025-02-28 09:24 | Inpatient (IN) ==
--- NOTE | 2025-02-28 09:43 | Emergency Department Note ---
Impression & Plan Ambulatory dysfunction Admission ED Provider Note HPI: History obtained from patient. The patient is a 84-year-old female with history of coronary artery disease, osteoarthritis, presents the emergency department with a chief complaint of pain in her hands bilaterally as well as both of her knees. Patient notes that she is postoperative day #19 after a left total knee replacement with Dr. Lucas. Patient does not note any new swelling or erythema at the site of the surgical incision. Patient denies any recent fevers. Patient states that she has had similar joint pain in the past associated with arthritis as well as gout. Patient states over the past several days since she was discharged from inpatient rehab at [facility] she has had difficulty ambulating in her house and has had pain in both of her knees. On arrival here to the ED the patient is hemodynamically stable, she otherwise appears to be in no acute distress. ROS: - Per HPI Differential Diagnosis: Osteoarthritis, gout, septic arthritis, rheumatoid arthritis, fracture, dislocation, amongst other potential pathologies. *Outpatient medications and allergy history reviewed. PE: General: Alert, frail-appearing, no acute distress HEENT: Normocephalic, trachea midline Eyes: Extraocular eye movement is intact, no scleral erythema Pulmonary: Clear to auscultation bilaterally, no wheezing Cardio: Regular rate and rhythm GI: Abdomen is soft to palpation : No suprapubic tenderness MSK: There is slight swelling overlying the right wrist with some dark-colored erythema, no evidence of any open wounds or purulent drainage, range of motion appears intact, otherwise no evidence of trauma or malformation of the extremities, no edema Skin: Surgical incisions overlying the left knee appear to be healing appropriately without any overlying erythema or purulent drainage Neuro: Alert, no focal deficits Psychiatric: Cooperative INDEPENDENT INTERPRETATIONS: enzyme chemist: (As interpreted by myself): - An order was placed for continuous cardiac monitoring - Patient was noted to be in sinus rhythm with a rate of 108 Interventions provided in ED: - IV morphine, IV Zofran, IV Solu-Medrol Medical Decision Making: Patient presented to the emergency department with ambulatory dysfunction and pain in her bilateral hands and bilateral knees. X-ray imaging is unrevealing for any acute fracture, degenerative changes are noted. There does not appear to be any issue with the patient's hardware in regards to her recent left knee replacement. Lab work shows a mild nonspecific leukocytosis. There is some mild swelling overlying the right wrist with some mild erythema, patient states this feels similar to gout that she has had in the past therefore I suspect it is likely gout as opposed to an acute infection. Patient was treated with IV morphine and IV Zofran as well as some IV Solu-Medrol with good improvement in her pain. On ambulatory trial following workup she was unable to ambulate. She is only been at home for about the past 4 days as she was at inpatient rehab at [facility]. I did discuss this with case management, they recommended admission as we would not be able to place the patient directly at [facility] today. Case was then discussed with the on-call hospitalist service for [facility] and the patient was placed for admission for ambulatory dysfunction in stable condition. Consultants/Discussions held with other healthcare providers: - Hospitalist, Dr. Dial Disposition discussion held by myself with: - Patient and daughter at bedside Diagnosis: 1. Osteoarthritis, acute on chronic 2. Ambulatory dysfunction, acute 3. Gout, acute, right hand Disposition: Admission Oscar Oneil DO Emergency Medicine Past Med/Surg History Problem List (Updated 02/28/25 @ 14:01 by Oscar Oneil DO) Ambulatory dysfunction (Acute) S/P total knee arthroplasty Synovitis of knee Heme positive stool (Acute) Leukocytosis (Acute) Lumbar spinal stenosis Osteoarthritis of right hip Sacroiliitis Lumbar radiculopathy CAD (coronary artery disease) LIGIA (iron deficiency anemia) (Chronic) Depression (Chronic) Pilonidal cyst (Chronic) Medical History Anxiety CAD (coronary artery disease) 2010- inferior STEMI s/p aspiration thrombectomy to LCX with 2 KAYY and KAYY to RCA Colon adenocarcinoma s/p hemicolectomy 2013 Depression GERD (gastroesophageal reflux disease) History of bleeding ulcers History of COVID-fall: Covid [facility], [facility] treatment Hx of breast cancer Left breast (unsure of date) Hx of diverticulitis of colon Hx of gout Hx of myocardial infarction (2010) Hypotension Iron deficiency anemia Lumbar spinal stenosis Osteoarthritis Seasonal allergies Surgical History H/O dilation and curettage History of cardiac cath 2010- stents x3 History of colonoscopy History of esophagogastroduodenoscopy (EGD) EGD 08/2024 (for anemia evaluation): MAC at [facility] History of heart artery stent 2011- stents x3 History of hemicolectomy (01/12/14) Colon adenocarcinoma History of oophorectomy, unilateral History of repair of hiatal hernia History of surgical removal of pilonidal cyst Multiple Hx of tubal ligation S/P anal fissurectomy S/P cholecystectomy S/P lumpectomy, left breast Family History Father Arthritis Heart disease Mother Arthritis Other No family history of adverse response to anesthesia Social History Smoking Status: Never smoker Second Hand Exposure: No; Do You Dip or Chew Tobacco: No; Hx Alcohol Use: No Hx Substance Use: No Preferred Language: Khmer Communication Ability: Effective Charge Accounts Audit Clerk Required: No Beliefs That Will Affect Care: None marital status: / Current Living Situation: Alone Feels Safe at Home: Yes Assistive Devices: Walker Allergies Allergies Allergy/AdvReac Type Severity Reaction Status Date / Time hydrocodone Allergy Severe Confusion Verified 02/10/25 05:48 Macrolide Antibiotics Allergy Intermediate Allergic Verified 02/10/25 05:48 to "-mycins" Penicillins Allergy Intermediate Hives Verified 02/10/25 05:48 Sulfa (Sulfonamide Allergy Intermediate Hives Verified 02/10/25 05:48 Antibiotics) procaine [From Novocain] Allergy Facial Verified 02/10/25 05:48 swelling, hives (external+inside mouth) w/dental work lisinopril AdvReac Intermediate Cough Verified 02/10/25 05:48 Home Meds Home Medications Medication Instructions Recorded Confirmed betamethasone dipropionate 0.05 % 1 applic topical BID PRN Skin 12/30/24 02/28/25 topical cream Irritation cyanocobalamin (vitamin B-12) 1,000 mcg PO QAM 12/30/24 02/28/25 1,000 mcg tablet (Vitamin B-12) famotidine 40 mg tablet 40 mg PO QAM 12/30/24 02/28/25 magnesium hydroxide 400 mg/5 mL 5 ml PO DAILY PRN Constipation 12/30/24 02/28/25 oral suspension (Milk of Magnesia) ondansetron 4 mg disintegrating 4 mg PO Q6H PRN n/v 12/30/24 02/28/25 tablet pantoprazole 40 mg tablet,delayed 40 mg PO QAM 12/30/24 02/28/25 release sucralfate 1 gram tablet (Carafate) 1 g PO Q6H 12/30/24 02/28/25 oxycodone 5 mg tablet 5 mg PO Q4H PRN Moderate Pain 02/28/25 02/28/25 (Scale Score 5-6) Previous Rx's Medication Instructions Recorded allopurinol 100 mg tablet 100 mg PO QAM #30 tabs 09/11/24 cholecalciferol (vitamin D3) 1,250 1,250 mcg PO WK #30 caps 09/11/24 mcg (50,000 unit) capsule lorazepam 0.5 mg tablet 0.5 mg PO BID PRN Anxiety #10 tabs 09/11/24 nitroglycerin 0.4 mg sublingual 0.4 mg sublingual UD PRN Chest 09/11/24 tablet Pain #10 tabs acetaminophen 500 mg tablet 1,000 mg (2 x 500 mg) PO Q8 #60 02/11/25 (Tylenol Extra Strength) tabs docusate sodium 100 mg capsule 100 mg PO BID #20 caps 02/11/25 rivaroxaban 10 mg tablet (Xarelto) 10 mg PO DAILY 3 weeks #21 tabs 02/11/25 Results & Data (ED) Vital Signs Vital Signs - 24 hr 02/28/25 09:38 02/28/25 10:38 02/28/25 10:55 Temperature 36.7 C Temperature Source Oral Pulse Rate 114 H 110 H 112 H Pulse Rate [Right Finger] Pulse Rhythm Regular Respiratory Rate 18 14 Respiratory Effort / Characteristics Non-Labored Spontaneous Respiratory Depth Normal Respiratory Pattern Blood Pressure 142/91 H 181/93 H Blood Pressure [Right Arm] Blood Pressure Mean 108 129 Blood Pressure Mean [Right Arm] Pulse Oximetry 93 85 L Oxygen Delivery Method Room Air Oxygen Flow Rate Sepsis Recent Fever Within 48 Hours No Sepsis New/Unexplained Change in Mental Status No Sepsis Action Taken by Nursing No Action Required 02/28/25 12:54 02/28/25 12:59 02/28/25 13:01 Temperature Temperature Source Pulse Rate Pulse Rate [Right Finger] 110 H Pulse Rhythm Respiratory Rate 20 Respiratory Effort / Characteristics Non-Labored Spontaneous Respiratory Depth Normal Respiratory Pattern Regular Blood Pressure Blood Pressure [Right Arm] 170/98 H Blood Pressure Mean Blood Pressure Mean [Right Arm] 122 Pulse Oximetry 97 97 Oxygen Delivery Method Nasal Cannula Nasal Cannula Nasal Cannula Oxygen Flow Rate 3 3 3 Sepsis Recent Fever Within 48 Hours Sepsis New/Unexplained Change in Mental Status Sepsis Action Taken by Nursing Laboratory Data 02/28/25 10:29 02/28/25 10:29 Lab Results 02/28/25 Range/Units 10:29 WBC 12.57 H (4.8-10.8) K/ul RBC 3.75 L (4.20-5.40) M/uL Hgb 10.5 L (12.0-16.0) g/dl Hct 32.7 L (37.0-47.0) % MCV 87.2 (80.0-100.0) fL MCH 28.0 (25.0-34.0) pg MCHC 32.1 (32.0-36.0) g/dL RDW Std Deviation 49.7 H (36.4-46.3) fL RDW Coeff of Jamar 15.7 H (11.5-14.5) % Plt Count 498 H (130-400) K/uL MPV 8.9 L (9.4-12.4) fL Immature Gran % (Auto) 0.8 % Neut % (Auto) 79.0 % Lymph % (Auto) 8.1 % Tucker % (Auto) 11.9 % Eos % (Auto) 0.0 % Baso % (Auto) 0.2 % Neut # (Auto) 9.94 H (1.40-6.50) K/uL Lymph # (Auto) 1.02 L (1.20-3.40) K/uL Tucker # (Auto) 1.49 H (0.11-0.59) K/uL Eos # (Auto) 0.00 (0.00-0.50) K/uL Baso # (Auto) 0.02 (0.00-0.20) K/uL Immature Gran # (Auto) 0.10 (0.01-0.20) K/uL Sodium 135 L (136-145) mmol/L Potassium 3.5 (3.5-5.1) mmol/L Chloride 99 (98-107) mmol/L Carbon Dioxide 26 (21-32) mmol/L Anion Gap 10 (3-11) BUN 16 (6-23) mg/dl Creatinine 0.56 L (0.6-1.2) mg/dl Est Cr Clr Drug Dosing 60.9 ml/min eGFR 90.50 BUN/Creatinine Ratio 28.6 H (10-20) Glucose 111 H (70-99(Fasting)) mg/dl Calcium 8.8 (8.6-10.3) mg/dl Total Bilirubin 1.0 (0.2-1.0) mg/dl AST 11 L (13-39) U/L ALT 22 (7-52) U/L Alkaline Phosphatase 179 H (34-104) U/L Total Protein 7.4 (6.0-8.3) gm/dl Albumin 2.9 L (3.4-5.0) gm/dl Globulin 4.5 H (2.5-4.0) gm/dl Albumin/Globulin Ratio 0.6 L (0.9-2) Administered Medications Discontinued Medications Sodium Chloride (Nss) 500 mls @ 999 mls/hr IV .Q31M STA Stop: 02/28/25 10:10 Last Infusion: 02/28/25 10:43 Dose: Infused Documented By: Admin: 02/28/25 09:48 Dose: 999 mls/hr Documented By: RIKKI Methylprednisolone (Methylprednisolone 125 Mg/2 Ml Vial) 80 mg IV NOW STA Stop: 02/28/25 10:26 Last Admin: 02/28/25 10:38 Dose: 80 mg Documented By: OMAR Morphine Sulfate (Morphine Sulfate 4 Mg/Ml 1 Ml Carp\\Vial) 4 mg IV NOW STA Stop: 02/28/25 09:41 Last Admin: 02/28/25 09:48 Dose: 4 mg Documented By: RIKKI Ondansetron HCl (Ondansetron Inj 2 Mg/Ml 2 Ml Vial) 4 mg IV NOW STA Stop: 02/28/25 09:41 Last Admin: 02/28/25 09:48 Dose: 4 mg Documented By: RIKKI Imaging Data Radiologist's Impression: Hand X-Ray 02/28/25 09:40 XR hand LT min 3V routine CLINICAL HISTORY: Pain/arthritis versus gout COMPARISON: None FINDINGS: Fingers overlap on the lateral view. No fracture or dislocation. There are severe degenerative changes at the first CMC joint and scattered at the IP joints. There is osteophytosis. No significant erosion seen. There is lateral subluxation at the first CMC joint. IMPRESSION: 1. No fracture seen. 2. Degenerative changes as described. ACT 112: Negative or not required by law. Electronically signed by: Wei Carreon M.D. 02/28/2025 10:23 AM Hand X-Ray 02/28/25 09:40 XR hand RT min 3V routine CLINICAL HISTORY: Pain/arthritis COMPARISON: None FINDINGS: Fingers overlap on the lateral view. There are severe degenerative changes at the first CMC joint and the second and third IP joints. There is osteophytosis. No erosions seen. There is lateral subluxation of the first CMC joints. No fracture seen. IMPRESSION: 1. No fracture seen. 2. Degenerative changes as described. ACT 112: Negative or not required by law. Electronically signed by: Wei Carreon M.D. 02/28/2025 10:20 AM Knee X-Ray 02/28/25 09:40 XR knee RT 1 or 2V routine, XR knee LT 1 or 2V routine CLINICAL HISTORY: Pain/arthritis, no trauma COMPARISON: None FINDINGS: Right knee: There is severe lateral compartment narrowing with moderate osteophytosis. No fracture or dislocation. There is a large joint effusion. Left knee: Left knee prosthesis shows no hardware complication. No fracture or dislocation. There is a moderate joint effusion. IMPRESSION: 1. No fracture in either knee. 2. Osteoarthritis with joint effusion right knee. ACT 112: Negative or not required by law. Electronically signed by: Wei Carreon M.D. 02/28/2025 10:21 AM Knee X-Ray 02/28/25 09:40 XR knee RT 1 or 2V routine, XR knee LT 1 or 2V routine CLINICAL HISTORY: Pain/arthritis, no trauma COMPARISON: None FINDINGS: Right knee: There is severe lateral compartment narrowing with moderate osteophytosis. No fracture or dislocation. There is a large joint effusion. Left knee: Left knee prosthesis shows no hardware complication. No fracture or dislocation. There is a moderate joint effusion. IMPRESSION: 1. No fracture in either knee. 2. Osteoarthritis with joint effusion right knee. ACT 112: Negative or not required by law. Electronically signed by: Wei Carreon M.D. 02/28/2025 10:21 AM Chest X-Ray 02/28/25 13:15 XR chest 1V portable CLINICAL HISTORY: Eval new o2 requirements COMPARISON STUDY: 09/02/2024 FINDINGS: Stable mild cardiomegaly without pulmonary vascular congestion. No consolidation or pleural effusion. No pneumothorax. Stable old fracture proximal right humerus. IMPRESSION: No acute findings. ACT 112: Negative or not required by law. Electronically signed by: Wei Carreon M.D. 02/28/2025 1:40 PM Discharge Plan Visit Data Chief Complaint: Pain (Generalized) Stated Complaint: KNEE PAIN ED Provider: Oscar Oneil Discharge Problem: Ambulatory dysfunction Patient Disposition: Admitted As Inpatient Condition: Fair Forms Stand Alone Forms: [facility], Important Visit Information Prescriptions Prescriptions: No Action lorazepam 0.5 mg tablet 0.5 mg PO BID PRN (Reason: Anxiety) Qty: 10 0RF nitroglycerin 0.4 mg Tablet, Sublingual 0.4 mg sublingual UD PRN (Reason: Chest Pain) Qty: 10 0RF allopurinol 100 mg tablet 100 mg PO QAM Qty: 30 0RF cholecalciferol (vitamin D3) 1,250 mcg (50,000 unit) capsule 1,250 mcg PO WK Qty: 30 0RF sucralfate [Carafate] 1 gram Tablet 1 g PO Q6H famotidine 40 mg Tablet 40 mg PO QAM cyanocobalamin (vitamin B-12) [Vitamin B-12] 1,000 mcg Tablet 1,000 mcg PO QAM magnesium hydroxide [Milk of Magnesia] 400 mg/5 mL Suspension 5 ml PO DAILY PRN (Reason: Constipation) pantoprazole 40 mg Tablet,Delayed Release (Dr/Ec) 40 mg PO QAM betamethasone dipropionate 0.05 % Cream 1 applic TOPICAL BID PRN (Reason: Skin Irritation) ondansetron 4 mg Tablet,Disintegrating 4 mg PO Q6H PRN (Reason: n/v) acetaminophen [Tylenol Extra Strength] 500 mg Tablet 1,000 mg PO Q8 Qty: 60 0RF docusate sodium 100 mg Capsule 100 mg PO BID Qty: 20 0RF Xarelto 10 mg tablet 10 mg PO DAILY 21 Days Qty: 21 0RF oxycodone 5 mg tablet 5 mg PO Q4H PRN (Reason: Moderate Pain (Scale Score 5-6)) Referrals Referrals: Bruce Sheridan, DO [Primary Care Provider] -
[2025-02-28] MEDS: SODIUM CHLORIDE 0.9% 500 ML IV STA (09:48)
[2025-02-28] MEDS: MoRPHine SULFATE 4 MG/ML 1 ML CARP\\VIAL IV STA (09:48)
[2025-02-28] MEDS: ONDANSETRON INJ 2 MG/ML 2 ML VIAL IV STA (09:48)
--- NOTE | 2025-02-28 10:21 | XRay Report ---
XR hand RT min 3V routine CLINICAL HISTORY: Pain/arthritis COMPARISON: None FINDINGS: Fingers overlap on the lateral view. There are severe degenerative changes at the first CM C joint and the second and third IP joints. There is osteophytosis. No erosions seen. There is latera l subluxation of the first CMC joints. No fracture seen. IMPRESSION: 1. No fracture seen. 2. Degenerative changes as described. ACT 112: Negative or not required by law. Electronically signed by: Wei Carreon M.D. 02/28/2025 10:20 AM
--- NOTE | 2025-02-28 10:23 | XRay Report ---
XR knee RT 1 or 2V routine, XR knee LT 1 or 2V routine CLINICAL HISTORY: Pain/arthritis, no trauma COMPARISON: None FINDINGS: Right knee: There is severe lateral compartment narrowing with moderate osteophytosis. No fracture or dislocation. There is a large joint effusion. Left knee: Left knee prosthesis shows no hardware complication. No fracture or dislocation. There is a moderate joint effusion. IMPRESSION: 1. No fracture in either knee. 2. Osteoarthritis with joint effusion right knee. ACT 112: Negative or not required by law. Electronically signed by: Wei Careron M.D. 02/28/2025 10:21 AM
--- NOTE | 2025-02-28 10:24 | XRay Report ---
XR hand LT min 3V routine CLINICAL HISTORY: Pain/arthritis versus gout COMPARISON: None FINDINGS: Fingers overlap on the lateral view. No fracture or dislocation. There are severe degenera tive changes at the first CMC joint and scattered at the IP joints. There is osteophytosis. No signif icant erosion seen. There is lateral subluxation at the first CMC joint. IMPRESSION: 1. No fracture seen. 2. Degenerative changes as described. ACT 112: Negative or not required by law. Electronically signed by: Wei Carreon M.D. 02/28/2025 10:23 AM
[2025-02-28 10:50] LABS: Hematocrit (blood only) 32.7 % (37.0-47.0); Hemoglobin 10.5 g/dl (12.0-16.0); Immature Granulocytes # (auto) 0.10 K/uL (0.01-0.20); Immature Granulocytes % (auto) 0.8 %; Mean Corpuscular Hemoglobin 28.0 pg (25.0-34.0); Mean Corpuscular Volume 87.2 fL (80.0-100.0); Platelet Count 498 K/uL (130-400); RDW Standard Deviation 49.7 fL (36.4-46.3); Red Blood Count 3.75 M/uL (4.20-5.40); White Blood Count 12.57 K/ul (4.8-10.8)
[2025-02-28 10:56] LABS: Alanine Aminotransferase 22.0 U/L (7-52); Albumin Globulin Ratio 0.6 (0.9-2); Alkaline Phosphatase 179.0 U/L (34-104); Anion Gap 10.0 (3-11); Bilirubin,Total 1.0 mg/dl (0.2-1.0); Blood Urea Nitrogen 16.0 mg/dl (6-23); Calcium 8.8 mg/dl (8.6-10.3); Carbon Dioxide 26.0 mmol/L (21-32); Chloride 99.0 mmol/L (98-107); Creatinine Clr Calc Pharmacy 60.9 ml/min; Globulin 4.5 gm/dl (2.5-4.0); Glucose 111.0 mg/dl (70-99(Fasting)); Potassium 3.5 mmol/L (3.5-5.1); Sodium 135.0 mmol/L (136-145); Total Protein 7.4 gm/dl (6.0-8.3)
--- NOTE | 2025-02-28 12:42 | History & Physical Report ---
Date of Service February 28, 2025 Assessment & Plan (1) Hx of gout: (2) S/P total knee arthroplasty: (3) Leukocytosis: (4) CAD (coronary artery disease): (5) LIGIA (iron deficiency anemia): (6) GERD (gastroesophageal reflux disease): Plan Possible Gout Flare, multiple joint involvement - R knee, bilateral hands S/p Left TKA on 02/10 Leukocytosis - Admit to med surg w/ tele - Tachycardic, O2 requirements increased compared to baseline - Ortho consult for possible joint effusion tap to eval that this is gout vs infection - appreciate recs - Was given solumedrol IV 80 mg in the ER, will determine steroids vs other meds after ortho eval - Continue pain control - Last dose of xarelto was on 02/27 for dvt ppx, will HOLD incase of surgical procedure New O2 requirement - on 3L in the ER - Check CXR now - Denies any specific respiratory complaints but notes that she has had intermittently been told she can wear supplemental O2. Constipation - Will add miralax, dulcolax, and milk of mag prn for such. Last BM was 3 days ago. Poor diet since worsening joint pain GERD Barotts esophagus hx of hiatal hernia - Continue home meds: Pantoprazole, famotidine and Carafate daily DVT ppx: teds, scds Lines: PIV x 1 FEN/GI: heart healthy diet CODE: full code discussed with the patient and her daughter at bedside Dispo: From home, likely to remain in the hospital x 1-2 days I spent a total of 78 minutes with greater than 50% of that time face to face with the patient, personally reviewing all current laboratories, imaging studies, past medication reconciliation, outpatient chart review, and discussion with specialists to collaborate care for the patient excluding time spent in the performance of separately billed services or time spent by another provider/QHP. Please see attending documentation for corrections and/or additions. History of Present Illness Chief Complaint: Bilateral hand and knee pain Primary Care Provider: Bruce Sheridan, This is a 84 yo F with PMHx of recent left total knee arthroplasty by Dr. Nielson, CAD, old [place], TA[place], GERD, Harper's esophagus, MDD, and other history noted below underwent planned left total knee arthroplasty on 02/10/[address] Salmon. Postop hemoglobin dropped as low as 10.1. She has been discharged on Xarelto for DVT prophylaxis, last taken on 02/27, tylenol + oxycodone for pain control. Patient was admitted to [facility] and discharged home on 02/24. She had follow-up appointment on 02/24 with [facility] orthopedics however I do not have access to these notes. Pt noted at that appointment that she had hand pain, had some knee pain and thought she had just overdone things and caused it to worsen. Through the weekend the pain has progressively worsened and daughter brings her to the hospital today. She was supposed to have PT/OT at home today and due to pain, was not going to be able to participate. Swelling in right knee started on Friday, then right and left hand swelling and pain developed Friday as well. She was taking her routinely scheduled allopurinol. Denies fever, chills sweats. In the past she has intermittently had very similar issues with gout after stress. She had been using oxycodone for pain. Pt notes poor appetite in the past 3 days, and constipation with no BM in the same timeframe. She admits to some urinary incontinence but denies dysuria, hematuria or frequency. At baseline she is using a walker without much difficulty, no recent falls or injury to any of the areas. Pt did not take any of her routine medications today. Imaging reviewed today shows left knee with a moderate joint effusion. Right knee severe lateral compartment narrowing with moderate osteophytosis. No fracture or dislocation. Large joint effusion. WBC of 12.57. hgb 10.5, hct 32, plt 498, Na 135, K 3.5, BUN 18/Cr 0.56. Pt is tachycardic with HR around 110 and has elevated BP of 170/98 in the ER. Allergies Allergy/AdvReac Type Severity Reaction Status Date / Time hydrocodone Allergy Severe Confusion Verified 02/10/25 05:48 Macrolide Antibiotics Allergy Intermediate Allergic Verified 02/10/25 05:48 to "-mycins" Penicillins Allergy Intermediate Hives Verified 02/10/25 05:48 Sulfa (Sulfonamide Allergy Intermediate Hives Verified 02/10/25 05:48 Antibiotics) procaine [From Novocain] Allergy Facial Verified 02/10/25 05:48 swelling, hives (external+inside mouth) w/dental work lisinopril AdvReac Intermediate Cough Verified 02/10/25 05:48 Home Medications Medication Instructions Recorded Confirmed Type allopurinol 100 mg tablet 100 mg PO QAM #30 tabs 09/11/24 02/28/25 Rx cholecalciferol (vitamin D3) 1,250 1,250 mcg PO WK #30 caps 09/11/24 02/28/25 Rx mcg (50,000 unit) capsule lorazepam 0.5 mg tablet 0.5 mg PO BID PRN Anxiety #10 tabs 09/11/24 02/28/25 Rx nitroglycerin 0.4 mg sublingual 0.4 mg sublingual UD PRN Chest 09/11/24 02/28/25 Rx tablet Pain #10 tabs betamethasone dipropionate 0.05 % 1 applic topical BID PRN Skin 12/30/24 02/28/25 History topical cream Irritation cyanocobalamin (vitamin B-12) 1,000 mcg PO QAM 12/30/24 02/28/25 History 1,000 mcg tablet (Vitamin B-12) famotidine 40 mg tablet 40 mg PO QAM 12/30/24 02/28/25 History magnesium hydroxide 400 mg/5 mL 5 ml PO DAILY PRN Constipation 12/30/24 02/28/25 History oral suspension (Milk of Magnesia) ondansetron 4 mg disintegrating 4 mg PO Q6H PRN n/v 12/30/24 02/28/25 History tablet pantoprazole 40 mg tablet,delayed 40 mg PO QAM 12/30/24 02/28/25 History release sucralfate 1 gram tablet (Carafate) 1 g PO Q6H 12/30/24 02/28/25 History acetaminophen 500 mg tablet 1,000 mg (2 x 500 mg) PO Q8 #60 02/11/25 02/28/25 Rx (Tylenol Extra Strength) tabs docusate sodium 100 mg capsule 100 mg PO BID #20 caps 02/11/25 02/28/25 Rx rivaroxaban 10 mg tablet (Xarelto) 10 mg PO DAILY 3 weeks #21 tabs 02/11/25 02/28/25 Rx oxycodone 5 mg tablet 5 mg PO Q4H PRN Moderate Pain 02/28/25 02/28/25 History (Scale Score 5-6) Past Med/Surg History Problem List (Updated 02/27/25 @ 00:07 by Tanvi Pham) S/P total knee arthroplasty Synovitis of knee Heme positive stool (Acute) Leukocytosis (Acute) Lumbar spinal stenosis Osteoarthritis of right hip Sacroiliitis Lumbar radiculopathy CAD (coronary artery disease) LIGIA (iron deficiency anemia) (Chronic) Depression (Chronic) Pilonidal cyst (Chronic) Medical History Anxiety CAD (coronary artery disease) 2011- inferior STEMI s/p aspiration thrombectomy to LCX with 2 KAYY and KAYY to RCA Colon adenocarcinoma s/p hemicolectomy 2013 Depression GERD (gastroesophageal reflux disease) History of bleeding ulcers History of COVID-fall: Covid [facility]FFER, [facility] treatment Hx of breast cancer Left breast (unsure of date) Hx of diverticulitis of colon Hx of gout Hx of myocardial infarction (2010) Hypotension Iron deficiency anemia Lumbar spinal stenosis Osteoarthritis Seasonal allergies Surgical History H/O dilation and curettage History of cardiac cath 2010- stents x3 History of colonoscopy History of esophagogastroduodenoscopy (EGD) EGD 08/2024 (for anemia evaluation): MAC at [facility] History of heart artery stent 2010- stents x3 History of hemicolectomy (01/12/14) Colon adenocarcinoma History of oophorectomy, unilateral History of repair of hiatal hernia History of surgical removal of pilonidal cyst Multiple Hx of tubal ligation S/P anal fissurectomy S/P cholecystectomy S/P lumpectomy, left breast Family History Father Arthritis Heart disease Mother Arthritis Other No family history of adverse response to anesthesia Social History Smoking Status: Never smoker Second Hand Exposure: No; Do You Dip or Chew Tobacco: No; Hx Alcohol Use: No Hx Substance Use: No Preferred Language: Scottish Communication Ability: Effective Industrial 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 Required: No Beliefs That Will Affect Care: None marital status: / Current Living Situation: Alone Feels Safe at Home: Yes Assistive Devices: Walker Review of Systems Review of Systems: Constitutional: No fever, sweats or chills Eyes: No diplopia, no worsening or blurred vision ENT: normal hearing, no trouble swallowing Respiratory: No cough, sputum, dyspnea at rest or on exertion Cardiovascular: No chest pain, tightness or palpitations Abdomen: No pain, nausea, vomiting, diarrhea or constipation Musculoskeletal: + As per HPI with worsening right knee, right and left hand joint pain and edema, + chronic swelling s/p Left TKA on 02/10. wound healing well. Neurologic: No weakness, numbness/tingling, or balance problems Psychiatric: No anxiety or depression Skin: No rash or itch, no erythema of the surgical incision site on Left knee. Physical Exam Physical Exam: General: awake, alert, no apparent distress, elderly white female Head: Normocephalic, atraumatic ENT: PERRL, EOMI, no pharyngeal exudate, mucous membranes slightly dry Chest: on 3 L via NC, o2 sats mid 90s, slightly diminished at bases bilaterally but no adventitious breath sounds Cardiac: Sinus tachy with HR in low 100s, faint systolic ejection murmur, no JVD, normal peripheral pulses, good capillary refill Abdominal: NABS x 4 quadrants, soft, nondistended, nontender to palpation, no rebound or guarding Extremities: + R knee edema tender to touch, difficulty bending the knee. S/p Left TKA with incicion site healing well, no surrounding erythema or purulent drainage. Bilateral hand with multiple joint edema and severe pain with even touching the skin, difficulty bending all fingers. Otherwise normal inspection, calfs nontender to palpation Psych: Normal mood and affect Neuro: AAO x 3, no gross motor deficits, speech is clear, no peripheral sensory deficits Results & Data Results & Data Vital Signs (Past 12 Hours) Vital Signs Temp Pulse Resp BP Pulse Ox O2 Del Method 02/28/25 10:55 112 H 02/28/25 10:38 110 H 14 181/93 H 85 L 02/28/25 09:38 36.7 C 114 H 18 142/91 H 93 Room Air Laboratory Results 02/28/25 10:29 WBC 12.57 H RBC 3.75 L Hgb 10.5 L Hct 32.7 L MCV 87.2 MCH 28.0 MCHC 32.1 RDW Std Deviation 49.7 H RDW Coeff of Jamar 15.7 H Plt Count 498 H MPV 8.9 L Immature Gran % (Auto) 0.8 Neut % (Auto) 79.0 Lymph % (Auto) 8.1 Jackson % (Auto) 11.9 Eos % (Auto) 0.0 Baso % (Auto) 0.2 Neut # (Auto) 9.94 H Lymph # (Auto) 1.02 L Jackson # (Auto) 1.49 H Eos # (Auto) 0.00 Baso # (Auto) 0.02 Immature Gran # (Auto) 0.10 Sodium 135 L Potassium 3.5 Chloride 99 Carbon Dioxide 26 Anion Gap 10 BUN 16 Creatinine 0.56 L Est Cr Clr Drug Dosing 60.9 eGFR 90.50 BUN/Creatinine Ratio 28.6 H Glucose 111 H Calcium 8.8 Total Bilirubin 1.0 AST 11 L ALT 22 Alkaline Phosphatase 179 H Total Protein 7.4 Albumin 2.9 L Globulin 4.5 H Albumin/Globulin Ratio 0.6 L Diagnostic Findings Hand X-Ray 02/28/25 09:40 XR hand LT min 3V routine CLINICAL HISTORY: Pain/arthritis versus gout COMPARISON: None FINDINGS: Fingers overlap on the lateral view. No fracture or dislocation. There are severe degenerative changes at the first CMC joint and scattered at the IP joints. There is osteophytosis. No significant erosion seen. There is lateral subluxation at the first CMC joint. IMPRESSION: 1. No fracture seen. 2. Degenerative changes as described. ACT 112: Negative or not required by law. Electronically signed by: Wei Carreon M.D. 02/28/2025 10:23 AM Hand X-Ray 02/28/25 09:40 XR hand RT min 3V routine CLINICAL HISTORY: Pain/arthritis COMPARISON: None FINDINGS: Fingers overlap on the lateral view. There are severe degenerative changes at the first CMC joint and the second and third IP joints. There is osteophytosis. No erosions seen. There is lateral subluxation of the first CMC joints. No fracture seen. IMPRESSION: 1. No fracture seen. 2. Degenerative changes as described. ACT 112: Negative or not required by law. Electronically signed by: Wei Carreon M.D. 02/28/2025 10:20 AM Knee X-Ray 02/28/25 09:40 XR knee RT 1 or 2V routine, XR knee LT 1 or 2V routine CLINICAL HISTORY: Pain/arthritis, no trauma COMPARISON: None FINDINGS: Right knee: There is severe lateral compartment narrowing with moderate osteophytosis. No fracture or dislocation. There is a large joint effusion. Left knee: Left knee prosthesis shows no hardware complication. No fracture or dislocation. There is a moderate joint effusion. IMPRESSION: 1. No fracture in either knee. 2. Osteoarthritis with joint effusion right knee. ACT 112: Negative or not required by law. Electronically signed by: Wei Carreon M.D. 02/28/2025 10:21 AM Knee X-Ray 02/28/25 09:40 XR knee RT 1 or 2V routine, XR knee LT 1 or 2V routine CLINICAL HISTORY: Pain/arthritis, no trauma COMPARISON: None FINDINGS: Right knee: There is severe lateral compartment narrowing with moderate osteophytosis. No fracture or dislocation. There is a large joint effusion. Left knee: Left knee prosthesis shows no hardware complication. No fracture or dislocation. There is a moderate joint effusion. IMPRESSION: 1. No fracture in either knee. 2. Osteoarthritis with joint effusion right knee. ACT 112: Negative or not required by law. Electronically signed by: Wei Carreon M.D. 02/28/2025 10:21 AM Code Status & VTE Plan Code Status Full code - discussed with the patient and her daughter at bedside Supervising Physician Co-Signing Physician Notes Pt seen and examined by me, care coordinated with Jaida Parry PA-C, pls refer to her note above for further detail. Pt is an 84 yo F with recent Left total knee arthroplasty by Dr. Nielson (02/10/25), CAD, old [place], [place], GERD, Harper's esophagus, MDD. Pt was discharged few days after surgery to [facility] and from there she had a follow up on 02/24 w/ orthopedics where shaye were taken out and she was reportedly doing well. Pt's daughter present at the bedside and further provides history. Next day pt had more pain in her joints, not feeling well, and daughter contacted orthopedics office, was instructed to rest. However today pt was supposed to have PT/OT and due to pain, was not going to be able to participate and presented to ER. + Swelling in right knee started on Friday, and Right hand developed pain Seth as well, increased swelling. Her left hand is also worsened with pain and swelling. Denies fever, chills sweats. Pt reports she has intermittently had very similar issues with gout after stress. Imaging reviewed today shows left knee with a moderate joint effusion. Right knee severe lateral compartment narrowing with moderate osteophytosis. No fracture or dislocation. Large joint effusion. She received iv solumedrol and morphine in ED. Currently sitting up in bed in NAD. She is currently on suppl. O2 (at baseline does not use), breath sounds decreased, heart sounds regular. Abdomen soft nontender. + R knee and L knee effusion. R knee with surg. incision noted. some mild swelling also noted on her hands. UA is pending as pt was reporting some urinary incontinence in ED. Will obtain blood cultx. Discussed IS with RN, weaning off oxygen if able, will also obtain CXR. Will further discuss w/ orthopedics and see if plan for effusion tap (will hold xarelto in the meantime). Antibiotics not started at this time, follow cultx. MD Yojana (2) S/P total knee arthroplasty Laterality: left Qualified Code(s): Z96.652 - Presence of left artificial knee joint (3) Leukocytosis Leukocytosis type: unspecified Qualified Code(s): D72.829 - Elevated white blood cell count, unspecified
--- NOTE | 2025-02-28 13:42 | XRay Report ---
XR chest 1V portable CLINICAL HISTORY: Eval new o2 requirements COMPARISON STUDY: 09/02/2024 FINDINGS: Stable mild cardiomegaly without pulmonary vascular congestion. No consolidation or pleural effusion. No pneumothorax. Stable old fracture proximal right humerus. IMPRESSION: No acute findings. ACT 112: Negative or not required by law. Electronically signed by: Wei Carreon M.D. 02/28/2025 1:40 PM
[2025-02-28] MEDS: POLYETHYLENE (MIRALAX) 17 GM PACK PO SCH (14:45)
[2025-02-28] MEDS ORDERED: MAGNESIUM HYDROXIDE SUSP 30 ML UDC PO PRN (15:45)
[2025-02-28] MEDS ORDERED: ONDANSETRON INJ 2 MG/ML 2 ML VIAL IV PRN (15:45)
[2025-02-28] MEDS ORDERED: KETOROLAC TROMETHAMINE 15 MG/ML VIAL IV PRN (15:57)
--- NOTE | 2025-02-28 16:38 | Orthopedic Consultation ---
Date of Consultation February 28, 2025 Assessment & Plan (1) Joint effusion of multiple sites: The patient was educated regarding today's findings. She had been doing quite well in her initial postop recovery, and had range of motion from 0-88 degrees for her knee. She has already received IV Solu-Medrol and morphine in the ED. Her pain level has improved considerably, though she still has pain associated with motion of the joints. Her surgical incision on the left knee looks excellent. It is healing very nicely. Possibility of osteoarthritis flare, synovitis, gout, and infection were discussed with the patient. Given her past history, synovitis or gout seems most likely. If her symptoms are still severe tomorrow, aspiration of the right knee will be performed. I recommend holding any antibiotics at this time, as she does not present as a typical infectious etiology. Uric acid level, CRP, and sed rate will be ordered for the morning. She may be transitioned to oral prednisone starting tomorrow. Continue IV/oral pain medication as needed. [facility] PT/OT. The patient was seen in conjunction with Dr. Dean, who also evaluated the patient and concurred with today's treatment plan. Supervising Physician Co-Signing Physician Notes I, Dr. Dean, saw and examined the patient with my PA. I discussed the management with my PA. I reviewed my PAs note and agree with the documented findings and attest to completing the substantive portion of medical decision making and plan of care I developed. History of Present Illness Reason for Consultation: Bilateral knee and wrist pain and swelling Requesting Physician: Dr. Salmon, Dr. Dean Covering Attending Physician: Maico Dial MD History of Present Illness This 84-year-old female presented from home today to the ED after recent Left total knee arthroplasty by Dr. Nielson (02/10/25). Additional history of CAD, old [place], TA[place]NA, GERD, Harper's esophagus, osteoarthritis, iron deficiency anemia, and depression. Pt was discharged from [facility] to [facility] and from there she had a follow up on 02/24. She had her shaye removed and she was doing well. She states the next day pt had more pain in her joints and was not feeling well. Today pt was supposed to have PT/OT and due to pain, was not going to be able to participate and presented to ER. Swelling in right knee started on Friday, and Right hand developed pain Friday as well. Swelling increased in the wrist over the weekend. Her left hand is also worsened with pain and swelling. She denies fever, chills, or sweats. Pt reports she has had 3 or 4 episodes of gout that felt similar, all of which were after surgeries. She denies any involvement of other joints. She states she was unable to ambulate at home secondary to her knee pain and inability to use her walker due to her wrist pain. Allergies Allergy/AdvReac Type Severity Reaction Status Date / Time hydrocodone Allergy Severe Confusion Verified 02/10/25 05:48 Macrolide Antibiotics Allergy Intermediate Allergic Verified 02/10/25 05:48 to "-mycins" Penicillins Allergy Intermediate Hives Verified 02/10/25 05:48 Sulfa (Sulfonamide Allergy Intermediate Hives Verified 02/10/25 05:48 Antibiotics) procaine [From Novocain] Allergy Facial Verified 02/10/25 05:48 swelling, hives (external+inside mouth) w/dental work lisinopril AdvReac Intermediate Cough Verified 02/10/25 05:48 Home Medications Medication Instructions Recorded Confirmed Type allopurinol 100 mg tablet 100 mg PO QAM #30 tabs 09/11/24 02/28/25 Rx cholecalciferol (vitamin D3) 1,250 1,250 mcg PO WK #30 caps 09/11/24 02/28/25 Rx mcg (50,000 unit) capsule lorazepam 0.5 mg tablet 0.5 mg PO BID PRN Anxiety #10 tabs 09/11/24 02/28/25 Rx nitroglycerin 0.4 mg sublingual 0.4 mg sublingual UD PRN Chest 09/11/24 02/28/25 Rx tablet Pain #10 tabs betamethasone dipropionate 0.05 % 1 applic topical BID PRN Skin 12/30/24 02/28/25 History topical cream Irritation cyanocobalamin (vitamin B-12) 1,000 mcg PO QAM 12/30/24 02/28/25 History 1,000 mcg tablet (Vitamin B-12) famotidine 40 mg tablet 40 mg PO QAM 12/30/24 02/28/25 History magnesium hydroxide 400 mg/5 mL 5 ml PO DAILY PRN Constipation 12/30/24 02/28/25 History oral suspension (Milk of Magnesia) ondansetron 4 mg disintegrating 4 mg PO Q6H PRN n/v 12/30/24 02/28/25 History tablet pantoprazole 40 mg tablet,delayed 40 mg PO QAM 12/30/24 02/28/25 History release sucralfate 1 gram tablet (Carafate) 1 g PO Q6H 12/30/24 02/28/25 History acetaminophen 500 mg tablet 1,000 mg (2 x 500 mg) PO Q8 #60 02/11/25 02/28/25 Rx (Tylenol Extra Strength) tabs docusate sodium 100 mg capsule 100 mg PO BID #20 caps 02/11/25 02/28/25 Rx rivaroxaban 10 mg tablet (Xarelto) 10 mg PO DAILY 3 weeks #21 tabs 02/11/25 02/28/25 Rx oxycodone 5 mg tablet 5 mg PO Q4H PRN Moderate Pain 02/28/25 02/28/25 History (Scale Score 5-6) Patient History Medical History Hx of diverticulitis of colon History of bleeding ulcers GERD (gastroesophageal reflux disease) Hx of breast cancer Left breast (unsure of date) History of COVID-fall: Covid PNA, [facility] treatment Hx of gout Anxiety Hx of myocardial infarction (2010) Hypotension Osteoarthritis Lumbar spinal stenosis Iron deficiency anemia Depression Seasonal allergies Colon adenocarcinoma s/p hemicolectomy 2013 CAD (coronary artery disease) 2010- inferior STEMI s/p aspiration thrombectomy to LCX with 2 KAYY and KAYY to RCA Surgical History H/O dilation and curettage History of cardiac cath 2010- stents x3 History of colonoscopy History of esophagogastroduodenoscopy (EGD) EGD 08/2024 (for anemia evaluation): MAC at [facility] History of heart artery stent 2010- stents x3 History of hemicolectomy (01/12/14) Colon adenocarcinoma History of oophorectomy, unilateral History of repair of hiatal hernia History of surgical removal of pilonidal cyst Multiple Hx of tubal ligation S/P anal fissurectomy S/P cholecystectomy S/P lumpectomy, left breast Family History Father Arthritis Heart disease Mother Arthritis Other No family history of adverse response to anesthesia Social History Smoking Status: Never smoker Second Hand Exposure: No; Do You Dip or Chew Tobacco: No; Hx Alcohol Use: No Hx Substance Use: No Preferred Language: Ukrainian Communication Ability: Effective Administration Assistant Required: No Beliefs That Will Affect Care: None marital status: / Current Living Situation: Alone Feels Safe at Home: Yes Assistive Devices: Walker Review of Systems Review of Systems: All systems reviewed & are unremarkable except as noted in HPI & below Physical Exam Physical Exam: General: Frail, elderly female, in no acute distress. Laying in bed sleeping. Awakens easily. Alert and oriented. Skin: Warm and dry with fair turgor. No rashes. She has a healing surgical incision on the left knee. Steri-Strips are in place. Wound looks excellent. There is a mild intra-articular effusion in the left knee. She also has a larger effusion in the right knee. There is also an effusion in the right and left wrist, with right being larger. Mild ecchymosis present around the wrist. No open wounds. Musculoskeletal: The patient has limited motion of the digits on both hands. She is unable to make an active fist. She is able to abduct and extend the digits on both hands. There is limited flexion of the IP joint of the thumb and DIP and PIP joints of the fingers on the right hand secondary to her swelling. She has better motion of the digits on the left hand, though it also causes discomfort at her wrist. She has limited flexion and extension of the wrists secondary to discomfort. Palpation of the wrists also causes an increase in her pain. She has supple motion of both elbows without discomfort. Bilateral hip evaluation reveals supple motion for logrolling. This only causes discomfort at her knees. Passive extension of both knees increases her pain as well. Palpation around the joints is uncomfortable. She has no discomfort with palpation or motion of either ankle. There is intact active dorsiflexion and plantarflexion of both ankles. Neurologic: Gross sensation is intact across the upper and lower extremities by soft touch. Peripheral pulses are 2+. Results & Data Vital Signs (Past 12 Hours) Vital Signs Temp Pulse Pulse Resp BP BP Pulse Ox 02/28/25 15:59 36.7 C 110 H 20 126/68 90 02/28/25 15:51 108 H 02/28/25 15:03 02/28/25 14:46 102 H 22 129/91 94 02/28/25 13:01 02/28/25 12:59 97 02/28/25 12:54 110 H 20 170/98 H 97 02/28/25 10:55 112 H 02/28/25 10:38 110 H 14 181/93 H 85 L 02/28/25 09:38 36.7 C 114 H 18 142/91 H 93 O2 Del Method O2 Flow Rate 02/28/25 15:59 Room Air 02/28/25 15:51 02/28/25 15:03 Nasal Cannula 2 02/28/25 14:46 Nasal Cannula 2 02/28/25 13:01 Nasal Cannula 3 02/28/25 12:59 Nasal Cannula 3 02/28/25 12:54 Nasal Cannula 3 02/28/25 10:55 02/28/25 10:38 02/28/25 09:38 Room Air Laboratory Results CBC obtained earlier shows a mild elevation in white count at 12.57. Given her recent surgery, this is not unexpected. H&H are acceptable at 10.5 and 32.7. Platelets are elevated at 498,000, consistent with previous levels. Electrolytes are unremarkable. BUN of 16 with creatinine 0.56. Glucose is 111 today. Alk phos is elevated at 179. Diagnostic Findings Radiographic imaging obtained earlier today of both knees shows significant osteoarthritis in the right knee. She has a well-seated total knee implant on the left. Bilateral wrist films show end-stage DJD of the CMC joints and significant arthritic changes of the carpal bones. No evidence of fractures.
[2025-02-28 16:58] LABS: Uric Acid 4.5 mg/dl (2.6-7.2)
[2025-02-28] MEDS: ACETAMINOPHEN 500 MG TAB PO SCH (18:12)
[2025-02-28] MEDS: SUCRALFATE 1 GM TAB PO SCH (18:18)
[2025-03-01 06:25] LABS: Appearance Urine Clear (Clear); Glucose Urine UA Negative (Negative)
[2025-03-01 07:53] LABS: Hematocrit (blood only) 29.9 % (37.0-47.0); Hemoglobin 9.5 g/dl (12.0-16.0); Mean Corpuscular Hemoglobin 27.3 pg (25.0-34.0); Mean Corpuscular Volume 85.9 fL (80.0-100.0); Platelet Count 484 K/uL (130-400); RDW Standard Deviation 48.4 fL (36.4-46.3); Red Blood Count 3.48 M/uL (4.20-5.40); White Blood Count 11.36 K/ul (4.8-10.8)
[2025-03-01 08:11] LABS: Anion Gap 8.0 (3-11); Blood Urea Nitrogen 24.0 mg/dl (6-23); Calcium 9.0 mg/dl (8.6-10.3); Carbon Dioxide 30.0 mmol/L (21-32); Chloride 100.0 mmol/L (98-107); Creatinine Clr Calc Pharmacy 60.2 ml/min; Glucose 131.0 mg/dl (70-99(Fasting)); Potassium 3.7 mmol/L (3.5-5.1); Sodium 138.0 mmol/L (136-145)
[2025-03-01] MEDS: CYANOCOBALAMIN (B-12) 500 MCG TABLET PO SCH (08:50)
[2025-03-01] MEDS: FAMOTIDINE 40 MG TABLET PO SCH (08:50)
[2025-03-01] MEDS: SENNA 8.6 MG TAB PO SCH (08:54)
[2025-03-01] MEDS ORDERED: predniSONE 20 MG TAB PO SCH (09:00)
--- NOTE | 2025-03-01 10:13 | Orthopedic Progress Note ---
Date of Service March 01, 2025 Assessment & Plan (1) Joint effusion of multiple sites: Plan: Procedure: Patient was supine on her bed with a bump placed under her right knee. The right knee was marked with a skin marker. A timeout was performed with the patient and she verbalizes that we will proceed with a right knee joint aspiration. Using the Of the needle the superolateral pouch of the right knee was marked. Site was cleansed with a Betadine swab wiped clean with an alcohol soaked 4-4 and a 25-gauge needle connected to a prefilled syringe containing 10 mL of 1% lidocaine solution was injected for anesthetic purposes. None of the product was wasted. The right knee was then sterilely draped and prepped with a Betadine swab, and alcohol soaked 4 x 4. It was then wiped clean with a sterile 4 x 4. An 18-gauge needle connected to a 30 cc syringe was inserted into the superolateral pouch and 35 cc of cloudy yellow-tinged fluid was easily expressed. Upon removal of the needle patient had no bleeding. Site was again cleansed with an alcohol soaked 4 x 4, wiped dry with sterile 4 x 4 and covered with a Band-Aid. I then compressed the knee with a 6 inch Jacob bandage. Patient tolerated procedure very well. Patient's nurse was in the room serving as a witness. PT/OT Weightbearing as tolerated with a walker and possibly platforms for each upper extremity due to right hand pain. Ice with easy wrap Keep 16s Jacob bandage in place for the next 36 hours Synovial fluid was sent for Lyme analysis, cell count, crystal analysis, Gram stain, aerobic and anaerobic cultures with sensitivity. I also included an order for uric acid analysis. Orders for a ESR CRP and a uric acid level were placed yesterday Will continue to follow synovial fluid analysis Patient arrived from [facility] and is not sure if she will be discharged back there for rehab following her left total knee arthroplasty Admission and Anticipated Discharge Date Admission Date: February 28, 2025 Subjective This 84-year-old female seen this morning for follow-up of bilateral knee pain and bilateral hand pain. Patient states she is doing much better today. She states that in the ED yesterday she received IV Solu-Medrol and morphine. She states that her hands are much better and she is able to move her digits. She states her left knee feels fine. She states that most of her pain is in her right knee and feels there may be compensatory after her recent left total knee arthroplasty. Currently she denies chest pain, shortness of breath, fever, chills, sweats, nausea, vomiting, diarrhea or numbness or tingling in right lower extremity. Review of Systems Review of Systems: All systems reviewed & are unremarkable except as noted in Subjective Physical Exam Physical Exam: Bilateral hands: Patient has Thu and [place] nodules affecting the digits of fingers 2 through 5 bilaterally. She is able to make a complete fist today. She is able to detect light sensation to touch over the pads of all digits. She is able to resist extension at the IP and MCP joint of her thumb. Her peripheral pulses are 2+. Her capillary refill is less than 2 seconds. Bilateral knees: Active knee range of motion bilaterally is from 0 degrees of extension to about 85 degrees of flexion. She is able to perform an active straight leg raise test with her left lower extremity but is unable to do so with her right. She is able to actively dorsi and plantarflex both feet. She has a small effusion palpable over the left knee. The surgical incision site is closed completely with no palpable fluctuance or drainage. Steri-Strips were placed over the incision. There is a large effusion palpable over the right knee with tenderness to palpation. There is no note of any erythema, ecchymosis or warmth in either lower extremity. Patient is able to detect light sensation to touch over the pads of all digits. Her peripheral pulses are 2+. Results & Data Vital Signs (Past 12 Hours) Vital Signs Temp Pulse Pulse Resp BP Pulse Ox O2 Del Method 03/01/25 08:20 36.3 C L 70 16 107/68 96 Nasal Cannula 03/01/25 07:15 84 03/01/25 02:59 36.6 C 78 20 113/75 95 Nasal Cannula 02/28/25 23:21 36.3 C L 87 20 119/76 95 Nasal Cannula O2 Flow Rate 03/01/25 08:20 2 03/01/25 07:15 03/01/25 02:59 2 02/28/25 23:21 2 Diagnostic Findings Laboratory Results WBC 11.36 K/ul (4.8-10.8) H 03/01/25 07:17 RBC 3.48 M/uL (4.20-5.40) L 03/01/25 07:17 Hgb 9.5 g/dl (12.0-16.0) L 03/01/25 07:17 Hct 29.9 % (37.0-47.0) L 03/01/25 07:17 MCV 85.9 fL (80.0-100.0) 03/01/25 07:17 MCH 27.3 pg (25.0-34.0) 03/01/25 07:17 MCHC 31.8 g/dL (32.0-36.0) L 03/01/25 07:17 RDW Std Deviation 48.4 fL (36.4-46.3) H 03/01/25 07:17 RDW Coeff of Jamar 15.4 % (11.5-14.5) H 03/01/25 07:17 Plt Count 484 K/uL (130-400) H 03/01/25 07:17 MPV 9.0 fL (9.4-12.4) L 03/01/25 07:17 Immature Gran % (Auto) 0.8 % 02/28/25 10:29 Neut % (Auto) 79.0 % 02/28/25 10:29 Lymph % (Auto) 8.1 % 02/28/25 10:29 Jewell % (Auto) 11.9 % 02/28/25 10:29 Eos % (Auto) 0.0 % 02/28/25 10:29 Baso % (Auto) 0.2 % 02/28/25 10:29 Neut # (Auto) 9.94 K/uL (1.40-6.50) H 02/28/25 10:29 Lymph # (Auto) 1.02 K/uL (1.20-3.40) L 02/28/25 10:29 Jewell # (Auto) 1.49 K/uL (0.11-0.59) H 02/28/25 10:29 Eos # (Auto) 0.00 K/uL (0.00-0.50) 02/28/25 10:29 Baso # (Auto) 0.02 K/uL (0.00-0.20) 02/28/25 10: Immature Gran # (Auto) 0.10 K/uL (0.01-0.20) 02/28/25 10:29 ESR 119 mm/hr (0-30) H 03/01/25 07:17 Sodium 138 mmol/L (136-145) 03/01/25 07:17 Potassium 3.7 mmol/L (3.5-5.1) 03/01/25 07:17 Chloride 100 mmol/L (98-107) 03/01/25 07:17 Carbon Dioxide 30 mmol/L (21-32) 03/01/25 07:17 Anion Gap 8 (3-11) 03/01/25 07:17 BUN 24 mg/dl (6-23) H 03/01/25 07:17 Creatinine 0.57 mg/dl (0.6-1.2) L 03/01/25 07:17 Est Cr Clr Drug Dosing 60.2 ml/min 03/01/25 07:17 eGFR 90.11 03/01/25 07:17 BUN/Creatinine Ratio 42.1 (10-20) H 03/01/25 07:17 Glucose 131 mg/dl (70-99(Fasting)) H 03/01/25 07:17 Uric Acid 4.5 mg/dl (2.6-7.2) 02/28/25 10:29 Calcium 9.0 mg/dl (8.6-10.3) 03/01/25 07:17 Total Bilirubin 1.0 mg/dl (0.2-1.0) 02/28/25 10:29 AST 11 U/L (13-39) L 02/28/25 10:29 ALT 22 U/L (7-52) 02/28/25 10:29 Alkaline Phosphatase 179 U/L (34-104) H 02/28/25 10:29 C-Reactive Protein 36.55 mg/dl (0-0.5) H 03/01/25 07:17 Total Protein 7.4 gm/dl (6.0-8.3) 02/28/25 10:29 Albumin 2.9 gm/dl (3.4-5.0) L 02/28/25 10:29 Globulin 4.5 gm/dl (2.5-4.0) H 02/28/25 10:29 Albumin/Globulin Ratio 0.6 (0.9-2) L 02/28/25 10:29 Urine Color Yellow 03/01/25 06:04 Urine Appearance Clear (Clear) 03/01/25 06:04 Urine pH 6.0 (4.5-7.5) 03/01/25 06:04 Ur Specific Randolph 1.025 (1.000-1.030) 03/01/25 06:04 Urine Protein 2+ (Negative) H 03/01/25 06:04 Urine Glucose (UA) Negative (Negative) 03/01/25 06:04 Urine Ketones Trace (Negative) H 03/01/25 06:04 Urine Blood Negative (Negative) 03/01/25 06:04 Urine Nitrite Negative (Negative) 03/01/25 06:04 Urine Bilirubin Negative (Negative) 03/01/25 06:04 Urine Urobilinogen Negative (Negative) 03/01/25 06:04 Ur Leukocyte Esterase 1+ (Negative) H 03/01/25 06:04 Urine RBC 0-2 /hpf (0-2) 03/01/25 06:04 Urine WBC 11-20 /hpf (0-5) H 03/01/25 06:04 Ur Epithelial Cells 11-20 /hpf (0-2) H 03/01/25 06:04 Urine Bacteria None Seen (None Seen) 03/01/25 06:04 Urine Comment 03/01/25 06:04 Impressions Hand X-Ray 02/28/25 09:40 XR hand LT min 3V routine CLINICAL HISTORY: Pain/arthritis versus gout COMPARISON: None FINDINGS: Fingers overlap on the lateral view. No fracture or dislocation. There are severe degenerative changes at the first CMC joint and scattered at the IP joints. There is osteophytosis. No significant erosion seen. There is lateral subluxation at the first CMC joint. IMPRESSION: 1. No fracture seen. 2. Degenerative changes as described. ACT 112: Negative or not required by law. Electronically signed by: Wei Carreon M.D. 02/28/2025 10:23 AM Knee X-Ray 02/28/25 09:40 XR knee RT 1 or 2V routine, XR knee LT 1 or 2V routine CLINICAL HISTORY: Pain/arthritis, no trauma COMPARISON: None FINDINGS: Right knee: There is severe lateral compartment narrowing with moderate osteophytosis. No fracture or dislocation. There is a large joint effusion. Left knee: Left knee prosthesis shows no hardware complication. No fracture or dislocation. There is a moderate joint effusion. IMPRESSION: 1. No fracture in either knee. 2. Osteoarthritis with joint effusion right knee. ACT 112: Negative or not required by law. Electronically signed by: Wei Carreon M.D. 02/28/2025 10:21 AM Chest X-Ray 02/28/25 13:15 XR chest 1V portable CLINICAL HISTORY: Eval new o2 requirements COMPARISON STUDY: 09/02/2024 FINDINGS: Stable mild cardiomegaly without pulmonary vascular congestion. No consolidation or pleural effusion. No pneumothorax. Stable old fracture proximal right humerus. IMPRESSION: No acute findings. ACT 112: Negative or not required by law. Electronically signed by: Wei Carreon M.D. 02/28/2025 1:40 PM
[2025-03-01 11:55] LABS: Color Synovial Fluid Yellow; Mononuclear WBC Synovial 10.3 %; Polynuclear WBC Synovial 89.7 %; RBC Synovial Fluid Auto 6000 /uL; Source Synovial Fluid Knee; WBC Synovial Fluid Auto 17915 /ul (0-200)
--- NOTE | 2025-03-01 13:04 | Hospitalist Progress Note ---
Date of Service March 01, 2025 Assessment & Plan (1) Polyarthritis of multiple sites: (2) Tenosynovitis of hand: (3) Effusion of right knee joint: (4) Osteoarthritis involving multiple joints on both sides of body: (5) LIGIA (iron deficiency anemia): (6) CAD (coronary artery disease): Plan Patient's symptoms consistent with a polyarthritis, inflammatory markers consistent with such. Also some tenosynovitis of the hand. She has responded nicely to steroids Await testing of right knee joint effusion, orthopedics following Continue therapies Titrate prednisone down to 20 mg daily Encouraged activity Anticipated patient's mobility continues to improve possible discharge tomorrow with outpatient follow-up Admission and Anticipated Discharge Date Admission Date: February 28, 2025 Subjective Patient reports that she was able to ambulate some with therapy. Swelling and tenderness of her hand has improved. Orthopedics performed knee arthrocentesis earlier today Physical Exam Physical Exam: Constitutional: Alert, nontoxic in appearance HEENT: Mucous membranes moist. Lungs: Clear to auscultation, decreased, no wheezes rales or rhonchi CV: S1-S2, regular Abdomen: Soft, nontender, nondistended Extremities: No significant edema, right knee in Jacob wrap status post arthrocentesis Some mild tenosynovitis of the hands with significant arthritic deformities of the knuckles Neuro: No focal deficits Psych: Cooperative, normal mood Results & Data Results & Data Vital Signs (Past 12 Hours) Vital Signs Temp Pulse Pulse Resp BP Pulse Ox O2 Del Method 03/01/25 11:49 36.8 C 92 H 16 119/78 93 Nasal Cannula 03/01/25 08:20 36.3 C L 70 16 107/68 96 Nasal Cannula 03/01/25 07:15 84 03/01/25 02:59 36.6 C 78 20 113/75 95 Nasal Cannula O2 Flow Rate 03/01/25 11:49 2 03/01/25 08:20 2 03/01/25 07:15 03/01/25 02:59 2 Diagnostic Findings Reviewed imaging, laboratory and diagnostic studies. Pertinent findings as below. bowel regimen upon return to alf facility. WBCs 11.3 Hemoglobin 9.5 Platelets of 44 Creatinine 0.57 ESR 119 CRP 36.5 Uric acid 9.0
[2025-03-02] MEDS: predniSONE 20 MG TAB PO SCH (08:23)
--- NOTE | 2025-03-02 09:17 | Orthopedic Progress Note ---
Date of Service March 02, 2025 Assessment & Plan (1) Joint effusion of multiple sites: Plan: PT/OT using platform or regular walker as tolerated. ROM to both hands and both knees. Weightbearing as tolerated with a walker and possibly platforms for each upper e xtremity due to right hand pain. Ice with easy wrap to left knee and hands PRN Jacob bandage on right knee for comfort. Crystal analysis positive for calcium pyrophosphate crystals suggestive of pse udogout. No evidence of infection. Cultures currently pending. will continue to follow. No plans for cortisone injection until cultures finalize in right knee. And then only as needed. Agree with continue NSAID/Prednisone treatment. Patient arrived from [facility] and is not sure if she will be discharged back there for rehab following her left total knee arthroplasty based on PT/OT evaluations. Case management for disposition. (2) S/P total knee arthroplasty: Plan: Continue PT and OT, weight-bear as tolerated with the assistance of a walker or platform walker as needed for her hands May advance to full range of motion of the left knee as tolerated. Strengthening as tolerated. Follow-up with Dr. Salmon as scheduled in approximately 1 month. Start outpatient physical therapy as scheduled or if in an inpatient rehab we will postpone those appointments until she is discharged from there. Disposition currently pending. Findings discussed with Dr. Dean. Admission and Anticipated Discharge Date Admission Date: February 28, 2025 Narciso Guevara is resting in bed, doing well. 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 She states that physical therapy and Occupational Therapy have been talking about her returning to the rehab. She would like to go home but will do what is safe for her. Her right knee pain is improved since the aspiration yesterday. She is able to bend it a little more and lift it more comfortably. The Jacob bandage is comfortable and she would like to leave that in place today. Physical Exam Musculoskeletal: Exam focused on her right lower extremity: Jacob bandage is in place. She is able to independently straight leg raise. She has still a small effusion to the right knee. She is able to flex it to about 60 degrees comfortably today. No distal edema. Full ankle range of motion with normal strength. Exam focused on her left knee: No effusion. Zipline has been removed. Steri-Strips are in place. No surrounding erythema. She is able independently straight leg raise with no extensor lag. Flexion to about 60 or 70 degrees comfortably in bed today. No distal edema. Full ankle range of motion with normal strength. Tolerates logrolling of bilateral hips. Results & Data Vital Signs (Past 12 Hours) Vital Signs Temp Pulse Resp BP Pulse Ox O2 Del Method O2 Flow Rate 03/02/25 08:00 36.4 C L 84 16 132/72 95 Room Air 2 03/02/25 07:16 Nasal Cannula 2 03/02/25 03:00 36.5 C 76 18 115/70 94 Nasal Cannula 2.5 03/01/25 22:32 36.6 C 93 H 18 134/82 94 Nasal Cannula 2.5 03/01/25 22:15 Nasal Cannula 2 Laboratory Results 02/28/25 14:30 Aerobic Blood Culture - Preliminary Blood No growth in Aerobic bottle after 24 hours. Anaerobic Blood Culture - Preliminary No growth in Anaerobic bottle after 24 hours. 02/28/25 14:30 Aerobic Blood Culture - Preliminary Blood No growth in Aerobic bottle after 24 hours. Anaerobic Blood Culture - Preliminary No growth in Anaerobic bottle after 24 hours. 03/01/25 Unknown Gram Stain - Final Joint Fluid,Knee Aerobic and Anaerobic Culture - Pending 03/01/25 06:04 Urine Culture - Pending Urine,Clean Catch 03/01/25 Unknown Fluid Comment Synovial Source Knee Synovial Color Yellow Synovial Appearance Cloudy Synovial WBC (Auto) 41110 H Synovial RBC (Auto) 6000 Synovial Polynuclear % 89.7 Synovial Mononuclear % 10.3 Synovial Crystals (2) S/P total knee arthroplasty Laterality: left Qualified Code(s): Z96.652 - Presence of left artificial knee joint
[2025-03-02] MEDS: OPTIRAY 320 125ml IV ONE (10:51)
--- NOTE | 2025-03-02 11:19 | CT Scan Report ---
CT angio chest PE protocol CT DOSE: 525.46 mGy.cm HISTORY: hypoxia/ ILD/ r/o PE. TECHNIQUE: Multiple CTA images of the chest were obtained after the intravenous administration of 112 ml Optiray. Coronal and sagittal MIPS were obtained from the axial data set and were submitted for review. All measurements were obtained according to NASCET criteria. A dose lowering technique was u tilized adhering to the principles of ALARA. COMPARISON STUDY: 04/14/2024 FINDINGS: There is mild atelectasis in the lung bases. No other pulmonary consolidation or pleural ef fusion. No pneumothorax. Stable small right thyroid nodule. No enlarged adenopathy. No pericardial ef fusion. There are coronary artery calcifications. There is a stable small hiatal hernia. No thoracic aortic dissection or aneurysm. No pulmonary embolism. There are mild thoracic spine degenerative gresham ges. IMPRESSION: No pulmonary embolism seen. ACT 112: Negative or not required by law. The above report was generated using voice recognition software. It may contain grammatical, syntax o r spelling errors. Electronically signed by: Wei Carreon M.D. 03/02/2025 11:17 AM
--- NOTE | 2025-03-02 12:52 | Hospitalist Progress Note ---
Date of Service March 02, 2025 Assessment & Plan (1) Polyarthritis of multiple sites: (2) Tenosynovitis of hand: (3) Effusion of right knee joint: (4) Chronic hypoxic respiratory failure: (5) Osteoarthritis involving multiple joints on both sides of body: (6) LIGIA (iron deficiency anemia): (7) CAD (coronary artery disease): Plan Patient is improving from her polyarthritis/tenosynovitis. Continue prednisone for another few days Continue therapies CTA of the chest ordered and reviewed. Suspect patient has component of chronic hypoxia that has not been fully identified prior to this hospitalization. She will need home oxygen. Recommend additional air further evaluation outpatient and possible pulmonary consult. 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 Communication with case management, applying for authorization to return to rehab at [facility] Continue to encourage incentive spirometry Admission and Anticipated Discharge Date Admission Date: February 28, 2025 Subjective Patient states she is feels like she is moving a little bit better. Able to move her hands little bit better. Denies any shortness of breath. But again comments that whenever she is in the hospital they put her on oxygen. Physical Exam Physical Exam: Constitutional: Alert, nontoxic HEENT: Mucous membranes moist. Lungs: Decreased, prolonged, no wheezes CV: S1-S2, regular Abdomen: Soft, nontender, nondistended Extremities: Arthritic joints, Jacob wrap on right knee, incision on left knee healing well and appropriate Neuro: No focal deficits Psych: Cooperative, normal mood Results & Data Results & Data Vital Signs (Past 12 Hours) Vital Signs Temp Pulse Resp BP Pulse Ox O2 Del Method O2 Flow Rate 03/02/25 11:50 36.4 C L 91 H 20 98 Nasal Cannula 2 03/02/25 08:00 36.4 C L 84 16 132/72 95 Room Air 2 03/02/25 07:16 Nasal Cannula 2 03/02/25 03:00 36.5 C 76 18 115/70 94 Nasal Cannula 2.5 Diagnostic Findings Reviewed imaging, laboratory and diagnostic studies. Pertinent findings as below. Synovial fluid results reviewed CTA of the chest negative for PE, negative for effusion, negative for infiltrative process Reviewed two-step oxygen testing, requires 2 L oxygen
--- NOTE | 2025-03-03 09:58 | Orthopedic Progress Note ---
Date of Service March 03, 2025 Assessment & Plan (1) Joint effusion of multiple sites: Plan: PT/OT using platform or regular walker as tolerated. ROM to both hands and both knees. Weightbearing as tolerated with a walker. Patient states she did not need platfo fara for either hand because they are no longer painful and she is able to grasp Ice with easy wrap to left knee and hands PRN Jacob bandage removed from the patient's right knee Crystal analysis positive for calcium pyrophosphate crystals suggestive of pseudogout. No evidence of infection. Cultures currently pending. will continue to follow. No plans for cortisone injection until cultures finalize in right knee. And then only as needed. Agree with continue NSAID/Prednisone treatment. Patient was advised by case management that [facility] does have a bed available for her. She states she has been trying to delay this but understands that she does need additional rehab. She is acceptable to be discharged back there. (2) S/P total knee arthroplasty: Plan: Continue PT and OT, weight-bear as tolerated with the assistance of a walker May advance to full range of motion of the left knee as tolerated. Strengthening as tolerated. Follow-up with Dr. Salmon as scheduled in approximately 1 month. Start outpatient physical therapy as scheduled or if in an inpatient rehab we will postpone those appointments until she is discharged from there. Admission and Anticipated Discharge Date Admission Date: February 28, 2025 Subjective This 84-year-old female seen today for follow-up for bilateral knee joint pain as well as pain and stiffness in her hands. Patient states that she is getting oral prednisone which seems to be helping considerably. She states that her right knee feels much better after having the fluid aspirated a few days ago. She was able to ambulate with the assistance of a walker from the bathroom to her bed and sit down without assistance. She states that she is feeling a little short of breath and has been on O2 via nasal cannula per medicine's recommendation. She denies any chest pain, fever, chills, sweats, nausea, vomiting, diarrhea or numbness or tingling in any of her extremities. Review of Systems Review of Systems: All systems reviewed & are unremarkable except as noted in Subjective Physical Exam Physical Exam: Bilateral hands: Patient has Thu and [place] nodules affecting the digits of fingers 2 through 5 bilaterally. She is able to make a complete fist today. She is able to detect light sensation to touch over the pads of all digits. She is able to resist extension at the IP and MCP joint of her thumb. Her peripheral pulses are 2+. Her capillary refill is less than 2 seconds. Bilateral knees: Active knee range of motion bilaterally is from 0 degrees of extension to about 85 degrees of flexion. In the right knee and from 0 degrees of extension to 65 degrees in the left. The surgical incision site over her left knee from her total knee arthroplasty is closed completely with no palpable fluctuance or drainage.. She is able to perform an active straight leg raise test with Both lower extremities. She is able to actively dorsi and plantarflex both feet. She has a small effusion palpable over the left knee. There is no effusion palpable in the right knee after removal of the Jacob bandage. There is no sign of any infection. There is no erythema warmth or ecchymosis in either lower extremity. Patient is able to detect light sensation to touch over the pads of all digits. Her peripheral pulses are 2+. She is neurovascularly intact in both lower extremities. Results & Data Vital Signs (Past 12 Hours) Vital Signs Temp Pulse Resp BP BP Pulse Ox O2 Del Method 03/03/25 08:32 36.4 C L 69 17 125/78 97 Nasal Cannula 03/03/25 07:29 Nasal Cannula 03/02/25 23:15 36.5 C 105 H 18 130/75 100 Nasal Cannula O2 Flow Rate 03/03/25 08:32 2 03/03/25 07:29 2 03/02/25 23:15 2 Diagnostic Findings Laboratory Results WBC 11.36 K/ul (4.8-10.8) H 03/01/25 07:17 RBC 3.48 M/uL (4.20-5.40) L 03/01/25 07:17 Hgb 9.5 g/dl (12.0-16.0) L 03/01/25 07:17 Hct 29.9 % (37.0-47.0) L 03/01/25 07:17 MCV 85.9 fL (80.0-100.0) 03/01/25 07:17 MCH 27.3 pg (25.0-34.0) 03/01/25 07:17 MCHC 31.8 g/dL (32.0-36.0) L 03/01/25 07:17 RDW Std Deviation 48.4 fL (36.4-46.3) H 03/01/25 07:17 RDW Coeff of Jamar 15.4 % (11.5-14.5) H 03/01/25 07:17 Plt Count 484 K/uL (130-400) H 03/01/25 07:17 MPV 9.0 fL (9.4-12.4) L 03/01/25 07:17 Immature Gran % (Auto) 0.8 % 02/28/25 10:29 Neut % (Auto) 79.0 % 02/28/25 10:29 Lymph % (Auto) 8.1 % 02/28/25 10:29 [place] % (Auto) 11.9 % 02/28/25 10:29 Eos % (Auto) 0.0 % 02/28/25 10:29 Baso % (Auto) 0.2 % 02/28/25 10:29 Neut # (Auto) 9.94 K/uL (1.40-6.50) H 02/28/25 10:29 Lymph # (Auto) 1.02 K/uL (1.20-3.40) L 02/28/25 10:29 [place] # (Auto) 1.49 K/uL (0.11-0.59) H 02/28/25 10:29 Eos # (Auto) 0.00 K/uL (0.00-0.50) 02/28/25 10:29 Baso # (Auto) 0.02 K/uL (0.00-0.20) 02/28/25 10:29 Immature Gran # (Auto) 0.10 K/uL (0.01-0.20) 02/28/25 10:29 ESR 119 mm/hr (0-30) H 03/01/25 07:17 Sodium 138 mmol/L (136-145) 03/01/25 07:17 Potassium 3.7 mmol/L (3.5-5.1) 03/01/25 07:17 Chloride 100 mmol/L (98-107) 03/01/25 07:17 Carbon Dioxide 30 mmol/L (21-32) 03/01/25 07:17 Anion Gap 8 (3-11) 03/01/25 07:17 BUN 24 mg/dl (6-23) H 03/01/25 07:17 Creatinine 0.57 mg/dl (0.6-1.2) L 03/01/25 07:17 Est Cr Clr Drug Dosing 60.2 ml/min 03/01/25 07:17 eGFR 90.11 03/01/25 07:17 BUN/Creatinine Ratio 42.1 (10-20) H 03/01/25 07:17 Glucose 131 mg/dl (70-99(Fasting)) H 03/01/25 07:17 Uric Acid 4.5 mg/dl (2.6-7.2) 02/28/25 10:29 Calcium 9.0 mg/dl (8.6-10.3) 03/01/25 07:17 Total Bilirubin 1.0 mg/dl (0.2-1.0) 02/28/25 10:29 AST 11 U/L (13-39) L 02/28/25 10:29 ALT 22 U/L (7-52) 02/28/25 10:29 Alkaline Phosphatase 179 U/L (34-104) H 02/28/25 10:29 C-Reactive Protein 36.55 mg/dl (0-0.5) H 03/01/25 07:17 Total Protein 7.4 gm/dl (6.0-8.3) 02/28/25 10:29 Albumin 2.9 gm/dl (3.4-5.0) L 02/28/25 10:29 Globulin 4.5 gm/dl (2.5-4.0) H 02/28/25 10:29 Albumin/Globulin Ratio 0.6 (0.9-2) L 02/28/25 10:29 Urine Color Yellow 03/01/25 06:04 Urine Appearance Clear (Clear) 03/01/25 06:04 Urine pH 6.0 (4.5-7.5) 03/01/25 06:04 Ur Specific [place] 1.025 (1.000-1.030) 03/01/25 06:04 Urine Protein 2+ (Negative) H 03/01/25 06:04 Urine Glucose (UA) Negative (Negative) 03/01/25 06:04 Urine Ketones Trace (Negative) H 03/01/25 06:04 Urine Blood Negative (Negative) 03/01/25 06:04 Urine Nitrite Negative (Negative) 03/01/25 06:04 Urine Bilirubin Negative (Negative) 03/01/25 06:04 Urine Urobilinogen Negative (Negative) 03/01/25 06:04 Ur Leukocyte Esterase 1+ (Negative) H 03/01/25 06:04 Urine RBC 0-2 /hpf (0-2) 03/01/25 06:04 Urine WBC 11-20 /hpf (0-5) H 03/01/25 06:04 Ur Epithelial Cells 11-20 /hpf (0-2) H 03/01/25 06:04 Urine Bacteria None Seen (None Seen) 03/01/25 06:04 Urine Comment 03/01/25 06:04 Fluid Comment 03/01/25 Unknown Synovial Source Knee 03/01/25 Unknown Synovial Color Yellow 03/01/25 Unknown Synovial Appearance Cloudy 03/01/25 Unknown Synovial WBC (Auto) 81837 /ul (0-200) H 03/01/25 Unknown Synovial RBC (Auto) 6000 /uL 03/01/25 Unknown Synovial Polynuclear % 89.7 % 03/01/25 Unknown Synovial Mononuclear % 10.3 % 03/01/25 Unknown Synovial Crystals 03/01/25 Unknown Impressions Hand X-Ray 02/28/25 09:40 XR hand LT min 3V routine CLINICAL HISTORY: Pain/arthritis versus gout COMPARISON: None FINDINGS: Fingers overlap on the lateral view. No fracture or dislocation. There are severe degenerative changes at the first CMC joint and scattered at the IP joints. There is osteophytosis. No significant erosion seen. There is lateral subluxation at the first CMC joint. IMPRESSION: 1. No fracture seen. 2. Degenerative changes as described. ACT 112: Negative or not required by law. Electronically signed by: Wei Carreon M.D. 02/28/2025 10:23 AM Knee X-Ray 02/28/25 09:40 XR knee RT 1 or 2V routine, XR knee LT 1 or 2V routine CLINICAL HISTORY: Pain/arthritis, no trauma COMPARISON: None FINDINGS: Right knee: There is severe lateral compartment narrowing with moderate osteophytosis. No fracture or dislocation. There is a large joint effusion. Left knee: Left knee prosthesis shows no hardware complication. No fracture or dislocation. There is a moderate joint effusion. IMPRESSION: 1. No fracture in either knee. 2. Osteoarthritis with joint effusion right knee. ACT 112: Negative or not required by law. Electronically signed by: Wei Carreon M.D. 02/28/2025 10:21 AM Chest X-Ray 02/28/25 13:15 XR chest 1V portable CLINICAL HISTORY: Eval new o2 requirements COMPARISON STUDY: 09/02/2024 FINDINGS: Stable mild cardiomegaly without pulmonary vascular congestion. No consolidation or pleural effusion. No pneumothorax. Stable old fracture proximal right humerus. IMPRESSION: No acute findings. ACT 112: Negative or not required by law. Electronically signed by: Wei Carreon M.D. 02/28/2025 1:40 PM Chest CTA 03/02/25 09:58 CT angio chest PE protocol CT DOSE: 525.46 mGy.cm HISTORY: hypoxia/ ILD/ r/o PE. TECHNIQUE: Multiple CTA images of the chest were obtained after the intravenous administration of 112 ml Optiray. Coronal and sagittal MIPS were obtained from the axial data set and were submitted for review. All measurements were obtained according to NASCET criteria. A dose lowering technique was utilized adhering to the principles of ALARA. COMPARISON STUDY: 04/14/2024 FINDINGS: There is mild atelectasis in the lung bases. No other pulmonary conso lidation or pleural effusion. No pneumothorax. Stable small right thyroid nodule. No enlarged adenopathy. No pericardial effusion. There are coronary artery calcifications. There is a stable small hiatal hernia. No thoracic aortic dissection or aneurysm. No pulmonary embolism. There are mild thoracic spine degenerative changes. IMPRESSION: No pulmonary embolism seen. ACT 112: Negative or not required by law. The above report was generated using voice recognition software. It may contain grammatical, syntax or spelling errors. Electronically signed by: Wei Carreon M.D. 03/02/2025 11:17 AM (2) S/P total knee arthroplasty Laterality: left Qualified Code(s): Z96.652 - Presence of left artificial knee joint
[2025-03-03 11:41] VITALS: BP 120/79; PULSE 85; RESP 18; TEMP 97.7; O2SAT 98
--- NOTE | 2025-03-03 13:19 | Discharge Summary ---
Discharge Summary Date of Service March 03, 2025 Principal Dx & Hospital Course #1 = Principal Diagnosis (1) Polyarthritis of multiple sites: (2) Tenosynovitis of hand: (3) Effusion of right knee joint: (4) Chronic hypoxic respiratory failure: (5) Osteoarthritis involving multiple joints on both sides of body: (6) LIGIA (iron deficiency anemia): (7) CAD (coronary artery disease): Plan Patient 84-year-old female who recently had a left total knee arthroplasty and was discharged to rehab at [facility]. She is just recently discharged from the rehab back to her personal care apartment where she started having increasing pain, tenderness and swelling in her hand and alternate knee. Got to the point where she was not able to really do any activity or take care of herself at home was brought to the emergency room. In the emergency room imaging was concerning for an effusion but she also noted to be a little bit hypoxic here in the urgency department. Patient was admitted for further evaluation. She was given pain control. Orthopedic consultation was obtained. They did do arthrocentesis. Preliminary studies are consistent with pseudogout. She was started on prednisone as anti-inflammatory. With this intervention her symptoms rapidly improved. This tenosynovitis and swelling in her hands significantly improved. The mobility improved in her hands and the pain decreased. With the arthrocentesis the tightness in her right knee seem to improve and she was able to be a little bit more mobile. She was assessed by therapies. She did require some assistance and it was recommended that she return to rehab for some additional therapies. While the patient was in the hospital she did require oxygen. Patient reports a history of that whenever she is in the hospital she is not required oxygen. She has been on and off of it in the hospital but she was never sent home with oxygen. She states that she was not an extensive smoker and no secondary smoke exposure. Has never been worked up outpatient for any lung issues. CTA of the chest was performed. No pulmonary embolism was noted. There is no significant infiltrates or signs of volume overload or edema in the lungs. However on two-step testing she did qualify for oxygen therapy at 2 L. On the day of discharge she is feeling significantly improved. Optimistic that she will continue to improve with therapies and return to her personal c are. Notes For Next Care Provider Patient has new oxygen requirement. Recommend considering consultation with outpatient pulmonary, pulmonary function testing. CT of the chest was unrevealing for exact diagnosis Follow-up with orthopedics as coordinated through their office for follow-up of her total knee replacement Consider repeat ESR/CRP and 10 to 14 days Medication Changes From Visit Prednisone short burst for tenosynovitis and polyarthritis Oxygen Admission HPI Per Admitting Provider This is a 84 yo F with PMHx of recent left total knee arthroplasty by Dr. Nielson, CAD, old CT, TA[place], GERD, Harper's esophagus, MDD, and other history noted below underwent planned left total knee arthroplasty on 02/10/[address] Salmon. Postop hemoglobin dropped as low as 10.1. She has been discharged on Xarelto for DVT prophylaxis, last taken on 02/27, tylenol + oxycodone for pain control. Patient was admitted to [facility] and discharged home on 02/24. She had follow-up appointment on 02/24 with [facility] orthopedics however I do not have access to these notes. Pt noted at that appointment that she had hand pain, had some knee pain and thought she had just overdone things and caused it to worsen. Through the weekend the pain has progressively worsened and daughter brings her to the hospital today. She was supposed to have PT/OT at home today and due to pain, was not going to be able to participate. Swelling in right knee started on Friday, then right and left hand swelling and pain developed Friday as well. She was taking her routinely scheduled allopurinol. Denies fever, chills sweats. In the past she has intermittently had very similar issues with gout after stress. She had been using oxycodone for pain. Pt notes poor appetite in the past 3 days, and constipation with no BM in the same timeframe. She admits to some urinary incontinence but denies dysuria, hematuria or frequency. At baseline she is using a walker without much difficulty, no recent falls or injury to any of the areas. Pt did not take any of her routine medications today. Imaging reviewed today shows left knee with a moderate joint effusion. Right knee severe lateral compartment narrowing with moderate osteophytosis. No fracture or dislocation. Large joint effusion. WBC of 12.57. hgb 10.5, hct 32, plt 498, Na 135, K 3.5, BUN 18/Cr 0.56. Pt is tachycardic with HR around 110 and has elevated BP of 170/98 in the ER. Admission Exam Per Admitting Provider See H&P Discharge Exam Constitutional: Alert, nontoxic HEENT: Mucous membranes moist. Lungs: Decreased, prolonged, no wheezes or rails CV: S1-S2, regular Abdomen: Soft, nontender, nondistended Extremities: No significant edema Musculoskeletal: Left knee incision clean dry and healing well Right knee in Jacob wrap Significant arthritic deformities of both hands with decreased swelling, decreased tenosynovitis, improve mobility Neuro: No focal deficits Psych: Cooperative, normal mood Updated Medication List Medication Instructions Recorded Confirmed Type lorazepam 0.5 mg tablet 0.5 mg PO BID PRN Anxiety #10 tabs 09/11/24 02/28/25 Rx betamethasone dipropionate 0.05 % 1 applic topical BID PRN Skin 12/30/24 02/28/25 History topical cream Irritation acetaminophen 500 mg tablet 1,000 mg (2 x 500 mg) PO Q8 #60 03/03/25 Rx (Tylenol Extra Strength) tabs allopurinol 100 mg tablet 100 mg PO QAM #30 tabs 03/03/25 Rx bisacodyl 5 mg tablet,delayed 10 mg (2 x 5 mg) PO HS #14 tabs 03/03/25 Rx release (Gentle Laxative (bisacodyl)) cholecalciferol (vitamin D3) 1,250 1,250 mcg PO WK #30 caps 03/03/25 Rx mcg (50,000 unit) capsule cyanocobalamin (vitamin B-12) 1,000 mcg PO QAM #30 tabs 03/03/25 Rx 1,000 mcg tablet (Vitamin B-12) docusate sodium 100 mg capsule 100 mg PO BID #20 caps 03/03/25 Rx famotidine 40 mg tablet 40 mg PO QAM #30 tabs 03/03/25 Rx magnesium hydroxide 400 mg/5 mL 5 ml PO DAILY PRN Constipation 03/03/25 Rx oral suspension (Milk of Magnesia) #355 mL nitroglycerin 0.4 mg sublingual 0.4 mg sublingual UD PRN Chest 03/03/25 Rx tablet Pain #10 tabs ondansetron 4 mg disintegrating 4 mg PO Q6H PRN n/v #10 tabs 03/03/25 Rx tablet oxycodone 5 mg tablet 5 mg PO Q4H PRN Moderate Pain 03/03/25 Rx (Scale Score 5-6) #10 tabs pantoprazole 40 mg tablet,delayed 40 mg PO QAM #30 tabs 03/03/25 Rx release polyethylene glycol 3350 17 gram 17 g PO DAILY #30 ea 03/03/25 Rx oral powder packet (Miralax) prednisone 20 mg tablet 20 mg PO DAILY #3 tabs 03/03/25 Rx rivaroxaban 10 mg tablet (Xarelto) 10 mg PO DAILY 3 weeks #21 tabs 03/03/25 Rx sennosides 8.6 mg tablet (Senna 17.2 mg (2 x 8.6 mg) PO QAM #30 03/03/25 Rx Lax) tabs sucralfate 1 gram tablet (Carafate) 1 g PO Q6H #60 tabs 03/03/25 Rx Hospital Stay Data Consultations 02/28/25 12:45 ED Decision to Admit Stat 02/28/25 12:58 Consult Orthopedic Surgery Routine Diagnostic Imagining Performed 03/02/25 09:58 CT angio chest PE protocol Urgent Reviewed imaging, laboratory and diagnostic studies. Pertinent findings as be low. Hemoglobin 9.5 Platelets of 484 ESR 119 Electrolytes within normal range Creatinine 0.57 Uric acid 4.5 C-reactive protein 36.5 Urinalysis negative for signs of infection Synovial fluid: 17,915 WBCs Blood cultures no growth at 48 hours Urine culture mixed bacteria Joint fluid no growth to date CTA of the chest was negative for pulmonary embolism no consolidation no effusion no pneumothorax Pending Results Patient Have Any Pending Studies at Discharge: Yes Discharge Instructions Given to Patient (Per Discharging Provider) Continue with therapies Follow-up with your outpatient orthopedic providers Total Time Total Time Spent Total Time Spent (In Minutes): 42
[2025-03-07] MEDS ORDERED: ERGOCALCIFEROL 1250 MCG (50,000 UNITS) CAP PO SCH (09:00)
== END 2025-03-03 15:24 | DRG 554 ==
LOC: ED 09:24 → 2N 12:58 → SUATTDRO 12:58 → 2N 15:03